=== PATIENT | male | born 1965 | race Caucasian/White ===

== ENCOUNTER → 2020-05-26 14:08 | Outpatient (BNVA) | payer MEDICAID, SELFPAY | PROVIDERS: PCP Pediatrics; Visit Provider Urology | DX: N40.1 Benign prostatic hyperplasia with lower urinary tract symptoms (principal); N13.8 Other obstructive and reflux uropathy; R39.11 Hesitancy of micturition; N52.01 Erectile dysfunction due to arterial insufficiency | CPT/HCPCS: 51798; 81002; 99212 ==

== ENCOUNTER 2020-08-19 09:52 | Outpatient (REF) | payer MEDICAID, SELFPAY ==
--- NOTE | ~2020-08-19 | US_ITS ---
EXAMINATION: US ABDOMEN COMPLETE CLINICAL INFORMATION: Chronic hepatitis C. COMPARISON: Ultrasound abdomen complete 07/04/2018. TECHNIQUE: Real-time imaging of the abdominal viscera. FINDINGS: PANCREAS: Normal. ABDOMINAL AORTA: The proximal, mid, and distal segments are normal in caliber. INFERIOR VENA CAVA: Visualized portions are normal. LIVER: Normal. The liver is normal in size. The liver contour is normal. Parenchymal echogenicity is normal. No focal hepatic lesion. There is no intrahepatic biliary duct dilatation seen. GALLBLADDER: Normal. The gallbladder is physiologically distended without evidence of stones, sludge, polyps, wall thickening or pericholecystic fluid. COMMON BILE DUCT: Normal in caliber measuring 0.3 cm in diameter. RIGHT KIDNEY: Innumerable tiny echogenic foci are redemonstrated, which may represent vascular artifact versus tiny calcifications. No hydronephrosis. No focal parenchymal lesions. The kidney measures 9.7 cm in maximum dimension. LEFT KIDNEY: Innumerable tiny echogenic foci are redemonstrated, which may represent vascular artifact versus tiny calcifications. No hydronephrosis. Simple cyst measuring 2.0 cm, unchanged. Cyst is not clinically significant and no dedicated follow-up imaging is recommended. The kidney measures 11.2 cm in maximum dimension. SPLEEN: Normal. The spleen measures 11.0 cm in maximum dimension. FREE FLUID: None. US/US abdomen complete IMPRESSION: 1. No focal hepatic parenchymal lesion or biliary ductal dilatation. 2. Tiny bilateral renal echogenic foci, which may represent vascular artifact versus tiny calcifications. No hydronephrosis.
== END 2020-08-19 09:53 | disposition home or self-care (01) ==
LOC: HO.HMGCX 09:52
PROVIDERS: PCP Pediatrics; Visit Provider Pediatrics
DX: B18.2 Chronic viral hepatitis C (principal)
CPT/HCPCS: 76700

== ENCOUNTER 2020-11-11 12:58 | Outpatient (RCR) | payer MEDICAID, SELFPAY | END 2020-11-17 07:30 | disposition home or self-care (01) | LOC: HO.WCC 12:58 | PROVIDERS: PCP Pediatrics; Visit Provider Surgery | DX: E11.40 Type 2 diabetes mellitus with diabetic neuropathy, unspecified (principal); B20 Human immunodeficiency virus [HIV] disease; F17.210 Nicotine dependence, cigarettes, uncomplicated; Z79.4 Long term (current) use of insulin; Z86.31 Personal history of diabetic foot ulcer | CPT/HCPCS: 99212 ==

== ENCOUNTER → 2021-02-16 11:09 | Outpatient (BNVA) | payer MEDICAID, SELFPAY | PROVIDERS: PCP Pediatrics; Visit Provider Urology | DX: N40.1 Benign prostatic hyperplasia with lower urinary tract symptoms (principal); N13.8 Other obstructive and reflux uropathy; N41.1 Chronic prostatitis | CPT/HCPCS: 99212 ==

== ENCOUNTER 2021-03-05 00:16 | Inpatient (IN) | payer MEDICAID, SELFPAY ==
[2021-03-05] VITALS (9 sets, daily range): BP systolic 92–124; BP diastolic 49–69; PULSE 89–117; RESP 14–20; TEMP 37.2–39.4; O2SAT 95–98; BMI 23.6
--- NOTE | ~2021-03-05 | XR_ITS ---
EXAMINATION: XR CHEST CLINICAL INFORMATION: Weakness COMPARISON: None TECHNIQUE: Frontal view of the chest was obtained. FINDINGS: Cardiac leads overlie the chest. The lungs are well expanded. Bronchial wall thickening noted. No dense consolidation. No edema or effusion. No pneumothorax. The cardiomediastinal silhouette is within normal limits. XR/XR chest 1V IMPRESSION: No consolidation. Bronchial wall thickening can be seen with a small airways process such as asthma or atypical/viral infection.
--- NOTE | ~2021-03-05 | CT_ITS ---
EXAMINATION: CT HEAD WITHOUT CONTRAST CLINICAL INFORMATION: Fall COMPARISON: None. TECHNIQUE: Contiguous axial imaging was performed from the skull base to vertex without intravenous contrast. This CT examination was performed using dose optimization techniques as appropriate, variously including the following: * Automated exposure control * Adjustment of mA and/or kV according to patient size (this includes techniques or standardized protocols for targeted exams where dose is matched to indication/reason for exam; i.e. extremities or head) Use of iterative reconstruction technique DLP: 774 mGy-cm. FINDINGS: There is no evidence of acute intracranial hemorrhage or territorial infarction. No abnormal mass effect or midline shift is seen. Rivera to white matter differentiation is well preserved. No extra-axial fluid collections are identified. No hydrocephalus. No significant volume loss. There is no abnormal attenuation within the brain parenchyma. The osseous structures and soft tissues are normal. Partially opacified left sphenoid sinus. Partially opacified left mastoid air cells. The right mastoid air cells and visualized portions of the paranasal sinuses are otherwise well aerated. CT/CT head/brain wo con IMPRESSION: No acute intracranial pathology.
--- NOTE | ~2021-03-05 | MR_ITS ---
EXAMINATION: MRI FOOT WITHOUT AND WITH CONTRAST, LEFT CLINICAL INFORMATION: Osteomyelitis. COMPARISON: Left foot radiographs dated 11/07/2012. TECHNIQUE: Multisequence MR imaging of the left foot was obtained before and after the IV administration of 7 mL Gadavist contrast on a high-field strength scanner. FINDINGS: Evaluation limited secondary to patient motion. Soft tissue ulceration along the lateral/plantar aspect of the 5th metatarsal head and with skin thickening and subcutaneous edema, consistent with acute cellulitis. No organized fluid collection/abscess formation. Within the adjacent 5th metatarsal head there is a peripherally increased T2 marrow signal with minimally decreased T1 marrow signal as well as mild postcontrast enhancement. No osseous erosion. Minimal periosteal reaction. Findings are consistent with acute osteomyelitis. No additional abnormal marrow signal. No stress reaction or fracture. Articular cartilage thinning with small marginal osteophytes at the 1st metatarsophalangeal joint and hallux sesamoids. Edema within the intrinsic musculature of the foot, which can be seen in diabetic patients. No measurable tendon defect. Intact Lisfranc ligament. MR/MR foot LT wo/w con IMPRESSION: Soft tissue ulceration and cellulitis along the plantar aspect of the 5th metatarsal head. No abscess formation. Mild underlying acute osteomyelitis within the 5th metatarsal head.
--- NOTE | ~2021-03-05 | CT_ITS ---
EXAMINATION: CT ABDOMEN AND PELVIS WITHOUT CONTRAST CLINICAL INFORMATION: Fevers. Elevated LFTs. COMPARISON: No prior CT. TECHNIQUE: Multidetector volumetric imaging was performed from the superior aspect of the liver through the pubic symphysis. Sagittal and coronal reformatted images were obtained on the technologist's workstation. This CT examination was performed using dose optimization techniques as appropriate, variously including the following: *Automated exposure control *Adjustment of mA and/or kV according to patient size (this includes techniques or standardized protocols for targeted exams where dose is matched to indication/reason for exam; i.e. extremities or head) *Use of iterative reconstruction technique DLP: 480 mGy-cm FINDINGS: LUNG BASES: The visualized lung bases are unremarkable. LIVER, GALLBLADDER, AND BILIARY TREE: The liver is normal in size, shape, and attenuation. No focal hepatic lesion or biliary ductal dilatation is present. The gallbladder is unremarkable with no evidence of radiopaque gallstones, gallbladder wall thickening, or obvious pericholecystic inflammatory changes. PANCREAS: Unremarkable. SPLEEN: Unremarkable. ADRENAL GLANDS: Unremarkable. KIDNEYS AND URETERS: The kidneys are normal in size, shape, and attenuation. No hydronephrosis, hydroureter, or calculi seen. No perinephric stranding. BLADDER: Decompressed with a Sin catheter in place. GASTROINTESTINAL TRACT: The stomach is unremarkable. The small bowel is normal in caliber. There is no obstruction. Normal appendix noted. No colonic wall thickening or acute inflammation. Large colonic stool burden, with stool seen throughout the entirety of the colon. ABDOMINAL WALL: No significant hernia is appreciated. LYMPH NODES: Normal. VASCULAR: Unremarkable. PELVIC VISCERA: Enlarged prostate measures 5.1 cm transverse. OSSEOUS STRUCTURES: No acute or suspicious osseous abnormality. Mild degenerative changes of the spine and hips. CT/CT abdomen pelvis wo con IMPRESSION: No acute inflammatory changes of the abdomen or pelvis. Large colonic stool burden. Fleischner guidelines were followed.
--- NOTE | 2021-03-05 00:26 | ECG_ITS ---
Test Reason : HYPERGLYCEMIA Blood Pressure : / mmHG Vent. Rate : 112 BPM Atrial Rate : 112 BPM P-R Int : 142 ms QRS Dur : 082 ms QT Int : 346 ms P-R-T Axes : 059 034 067 degrees QTc Int : 472 ms Sinus tachycardia Nonspecific T wave abnormality Abnormal ECG When compared with ECG of 28-JAN-2011 09:24, Vent. rate has increased BY [address] no longer elevated in Anterior leads Nonspecific T wave abnormality now evident in Anterolateral leads Referred By: Brittany Diaz Electronically Signed By:NADJA FRANCISCO MD
[2021-03-05 00:30] LABS: Glucose, Whole Blood 424 mg/dL (60-115)
--- NOTE | 2021-03-05 00:33 | ED_ITS ---
HPI - Weakness General Chief complaint: General Medical Stated complaint: hyperglycemia Time Seen by Provider: 03/05/21 00:25 Source: patient and old records reviewed Mode of arrival: EMS Limitations: other (slightly confused) History of Present Illness HPI Narrative: 55 yo male with hx of BPH, UTIs, hepatitis, HIV just completed levofloxacin course for ?prostatitis on 03/02 noted since yesterday feeling ill and weak found to have fever on arrival. States he has leg pain and cannot walk tried to get up and fell no LOC and did not injure himself. Brought to ED with BS in 400s as well. MD Complaint: generalized weakness Onset (ago): day(s) (2) Duration: progressively worsening Location: generalized Migration: none Severity: severe Quality: dull Relieving factors: none Exacerbating factors: movement and exertion Context: recent illness Associated symptoms: confusion and loss of appetite Related Data Home Medications Medication Instructions Recorded Confirmed benztropine 2 mg tablet 2 mg PO BID 02/16/21 docusate sodium 100 mg capsule 100 mg PO BID 02/16/21 elviteg 150 mg-cob 150 mg-emtricit 1 tab PO DAILY 02/16/21 200 mg-tenofo alafenam 10 mg tablet (Genvoya) gabapentin 100 mg capsule 0 mg PO 02/16/21 insulin aspar prot-insulin aspart ml SUBCUT 02/16/21 100 unit/mL (70-30) subcutaneous pen (Novolog Mix 70-30FlexPen U-100) lithium carbonate 300 mg tablet 300 mg PO 02/16/21 rsbwkmoayqpb-derfetat-kcpart 0 tab PO 02/16/21 tablet (Cerovite Senior) pen needle, diabetic 32 gauge x #50 ea 02/16/21 03/05/21/32 (BD Viv 2nd Gen Pen Needle) pravastatin 40 mg tablet 40 mg PO BEDTIME 02/16/21 03/05/21 propranolol 20 mg tablet 20 mg PO DAILY 02/16/21 03/05/21 risperidone 3 mg tablet 3 mg PO BID 02/16/21 03/05/21 Previous Rx's Medication Instructions Recorded tamsulosin 0.4 mg capsule 0.4 mg PO BEDTIME 30 Days #90 cap 01/26/21 finasteride 5 mg tablet 5 mg PO DAILY 90 Days #90 tab 02/16/21 Allergies Allergy/AdvReac Type Severity Reaction Status Date / Time acetaminophen [From Allergy Unknown UNKNOWN Verified 02/16/21 11:10 TYLENOL] aspirin [ASA] Allergy Unknown AGITATION Verified 02/16/21 11:10 trazodone [TRAZODONE] AdvReac Unknown HYPER Verified 02/16/21 11:10 Review of Systems Verdana 4l Review of Systems: Verdana 4d Verdana 4d Constitutional : No Weight loss, No Fever, pos Chills, pos Fatigue, pos Malaise ENT/Mouth : No sore throat, No Rhinorrhea Eyes: No Eye Pain, No Swelling, No Redness Cardiovascular : No Chest Pain, No SOB, No Dyspnea on Exertion, No OrthopneaOrthopnea, No Edema, No Palpitations Respiratory : No Cough, No Sputum, No Wheezing Gastrointestinal : No Nausea, No Vomiting, No Diarrhea, No Constipation, No abdominal Pain, No Hematochezia, No Melena Genitourinary : pos Dysuria, No Urinary Frequency, No Hematuria, Musculoskeletal : No joint pain, No Myalgias, No Joint Swelling Skin : No Skin Lesions, No rash Neuro : pos Weakness, No Numbness, No Dizziness, No Headache Psych : No Anxiety/Panic, No Depression Heme/Lymph: No Bruising, No Bleeding,No Lymphadenopathy Endocrine : No Polyuria, No Polydipsia All other systems reviewed and are negative PMFSH Past Medical History Attestation statement: The following information was validated with the patient. Medical History BPH w urinary obs/LUTS Chronic prostatitis Erectile dysfunction due to arterial insufficiency Hepatitis HIV (human immunodeficiency virus infection) Urinary hesitancy Surgical History No pertinent past surgical history Family History Family History Father No problems noted. Mother No problems noted. Social History Social History (Updated 03/05/21 @ 00:34 by Brittany Diaz DO) Patient Tobacco Use Status: Tobacco use Unknown Use of substances other than those prescribed or required for medical reasons: No Advance Directives: No Advance Directives Information Provided: No Physical Exam Verdana 4l Vital Signs: Verdana 4d Verdana 4d Vital Signs: Verdana 4d Verdana 4Bd Last Vital Signs Verdana 4d Chore Tender New 4d Chore Tender New 4d Temp 100.4 F 03/05/21 04:38 Chore Tender New 4d Pulse 103 H 03/05/21 04:54 Chore Tender New 4d Resp 17 03/05/21 04:54 BP 120/63 03/05/21 04:54 Pulse Ox 97 03/05/21 04:54 BMI result Body Mass Index 23.6 Appearance: Alert. Oriented X2 (time). No acute distress. Eyes: Pupils equal, round and reactive to light. ENT: Pharynx dry MM Neck: Normal inspection. Neck supple. CVS: Normal heart rate and rhythm. Pulses normal. Respiratory: No respiratory distress. Breath sounds normal. Abdomen: Soft and nontender. ?bladder distended Skin: Skin warm and dry. Normal skin color. Normal skin turgor. Extremities: No lower extremity edema. No calf ttp. scaling feet with wounds noted bilaterally on plantar surfaces some drainage noted Neuro: Oriented X 2 (time). No motor deficit. No sensory deficit. Course Course Course Narrative: UA normal but recently on levofloxacin could be masked feet could also be source will add on vancomycin as well BP improved at this time will admit to hospitalist MDM - Weakness MDM Narrative Medical decision making narrative: 55 yo male with hx of BPH, UTIs, hepatitis, HIV just completed levofloxacin course for ?prostatitis on 03/02 noted since yesterday feeling ill and weak found to have fever on arrival. At this time the patient c/o dysuria and not feeling well he had a fall at residential will obtain basic labs, cultures, lactic acid, UA - catheter ordered, IVF 30cc bolus, empiric cefepime ordered no recent cultures in our system, given fall and some confusion though could be related to fever will obtain CT head to r/o trauma. Suspect he will need admission to hospital given presentation Lab Data Result diagrams: 03/05/21 00:47 03/05/21 00:46 Labs: Lab Results 03/05/21 03/05/21 03/05/21 Range/Units 00:25 00:42 00:46 WBC (4.8-10.8) X10*3/uL RBC (4.60-5.80) X10*6/uL Hgb (14.0-18.0) g/dl Hct (42.0-52.0) % MCV (80.0-98.0) fL MCH (27.0-33.0) pg MCHC (31.0-36.0) g/dl RDW (11.0-16.0) % Plt Count (160-400) X10*3/uL MPV (9.4-12.4) fL Immature Gran % (Auto) (0.0-0.4) % Neut % (Auto) (45-73) % Lymph % (Auto) (20-40) % [place] % (Auto) (2-11) % Eos % (Auto) (0-4) % Baso % (Auto) (0-2) % Lymph # (Auto) (1.2-4.9) X10*3/uL [place] # (Auto) (0.1-1.2) X10*3/uL Eos # (Auto) (0.0-0.4) X10*3/uL Baso # (Auto) (0.0-0.2) X10*3/uL Abs Immat Gran (auto) (0.00-0.03) X10*3/uL Absolute Neuts (auto) (2.0-8.3) x10*3/uL Absolute Nucleated RBC (0.0-0.012) X10*3/uL Nucleated RBC % (auto) (0.0-0.2) /100WBC Smear Tech's Comments PT (9.9-13.0) SEC INR (0.9-1.1) Sodium 133 L (135-145) mmol/L Potassium 3.5 (3.3-5.1) mmol/L Chloride 100 (96-108) mmol/L Carbon Dioxide 21 L (22-29) mmol/L Anion Gap 16 (12-20) BUN 22 H (9-16) mg/dL Creatinine 1.81 H (0.5-1.4) mg/dL Estim Creat Clear Calc 44.0 Estimated GFR 39 POC Glucose 424 H* (60-115) mg/dL Random Glucose 482 H* (60-115) mg/dL Lactic Acid 3.1 H* (0.5-2.0) mmol/L Lactic Acid F/U @ 2Hr (0.5-2.0) mmol/L Calcium 9.1 (8.4-10.2) mg/dL Magnesium 1.6 (1.6-2.6) mg/dL Total Bilirubin 0.5 (0.0-1.0) mg/dL Direct Bilirubin 0.3 (0.0-0.5) mg/dL AST 499 H (5-37) U/L ALT 284 H (0-40) U/L Alkaline Phosphatase 143 H (39-117) U/L Troponin I High Sens (<3.5-35.0) ng/L Total Protein 6.0 L (6.5-8.0) g/dL Albumin 3.5 (3.5-5.0) g/dL Urine Color Urine Appearance Urine pH (5.0-8.0) Ur Specific [place] (1.005-1.025) Urine Protein (NEG-TRACE) MG/DL Urine Glucose (UA) (NEG) MG/DL Urine Ketones (NEG) MG/DL Urine Blood (NEG) Urine Nitrite (NEG) Ur Leukocyte Esterase (NEG) Urine RBC (0) /HPF Urine WBC (0-4) /HPF Ur Squamous Epith Cells /LPF Urine Bacteria /LPF Hyaline Casts /LPF Urine Mucus /LPF [place] (0.60-1.20) mmol/L COVID-19 (BETHANY) (Negative) COVID-19 Clin Com 03/05/21 03/05/21 03/05/21 Range/Units 00:46 00:46 00:46 WBC (4.8-10.8) X10*3/uL RBC (4.60-5.80) X10*6/uL Hgb (14.0-18.0) g/dl Hct (42.0-52.0) % MCV (80.0-98.0) fL MCH (27.0-33.0) pg MCHC (31.0-36.0) g/dl RDW (11.0-16.0) % Plt Count (160-400) X10*3/uL MPV (9.4-12.4) fL Immature Gran % (Auto) (0.0-0.4) % Neut % (Auto) (45-73) % Lymph % (Auto) (20-40) % [place] % (Auto) (2-11) % Eos % (Auto) (0-4) % Baso % (Auto) (0-2) % Lymph # (Auto) (1.2-4.9) X10*3/uL [place] # (Auto) (0.1-1.2) X10*3/uL Eos # (Auto) (0.0-0.4) X10*3/uL Baso # (Auto) (0.0-0.2) X10*3/uL Abs Immat Gran (auto) (0.00-0.03) X10*3/uL Absolute Neuts (auto) (2.0-8.3) x10*3/uL Absolute Nucleated RBC (0.0-0.012) X10*3/uL Nucleated RBC % (auto) (0.0-0.2) /100WBC Smear Tech's Comments PT 12.3 (9.9-13.0) SEC INR 1.1 (0.9-1.1) Sodium (135-145) mmol/L Potassium (3.3-5.1) mmol/L Chloride (96-108) mmol/L Carbon Dioxide (22-29) mmol/L Anion Gap (12-20) BUN (9-16) mg/dL Creatinine (0.5-1.4) mg/dL Estim Creat Clear Calc Estimated GFR POC Glucose (60-115) mg/dL Random Glucose (60-115) mg/dL Lactic Acid (0.5-2.0) mmol/L Lactic Acid F/U @ 2Hr (0.5-2.0) mmol/L Calcium (8.4-10.2) mg/dL Magnesium (1.6-2.6) mg/dL Total Bilirubin (0.0-1.0) mg/dL Direct Bilirubin (0.0-0.5) mg/dL AST (5-37) U/L ALT (0-40) U/L Alkaline Phosphatase (39-117) U/L Troponin I High Sens 15.8 (<3.5-35.0) ng/L Total Protein (6.5-8.0) g/dL Albumin (3.5-5.0) g/dL Urine Color Urine Appearance Urine pH (5.0-8.0) Ur Specific [place] (1.005-1.025) Urine Protein (NEG-TRACE) MG/DL Urine Glucose (UA) (NEG) MG/DL Urine Ketones (NEG) MG/DL Urine Blood (NEG) Urine Nitrite (NEG) Ur Leukocyte Esterase (NEG) Urine RBC (0) /HPF Urine WBC (0-4) /HPF Ur Squamous Epith Cells /LPF Urine Bacteria /LPF Hyaline Casts /LPF Urine Mucus /LPF [place] (0.60-1.20) mmol/L COVID-19 (BETHANY) Negative (Negative) COVID-19 Clin Com See Note 03/05/21 03/05/21 03/05/21 Range/Units 00:46 00:47 01:03 WBC 9.2 (4.8-10.8) X10*3/uL RBC 3.59 L (4.60-5.80) X10*6/uL Hgb 11.1 L (14.0-18.0) g/dl Hct 31.6 L (42.0-52.0) % MCV 88.0 (80.0-98.0) fL MCH 30.9 (27.0-33.0) pg MCHC 35.1 (31.0-36.0) g/dl RDW 11.6 (11.0-16.0) % Plt Count 100 L (160-400) X10*3/uL MPV 11.6 (9.4-12.4) fL Immature Gran % (Auto) 0.9 H (0.0-0.4) % Neut % (Auto) 95.4 H (45-73) % Lymph % (Auto) 2.2 L (20-40) % [place] % (Auto) 1.1 L (2-11) % Eos % (Auto) 0.1 (0-4) % Baso % (Auto) 0.3 (0-2) % Lymph # (Auto) 0.2 L (1.2-4.9) X10*3/uL [place] # (Auto) 0.1 (0.1-1.2) X10*3/uL Eos # (Auto) 0.0 (0.0-0.4) X10*3/uL Baso # (Auto) 0.0 (0.0-0.2) X10*3/uL Abs Immat Gran (auto) 0.08 H (0.00-0.03) X10*3/uL Absolute Neuts (auto) 8.8 H (2.0-8.3) x10*3/uL Absolute Nucleated RBC 0.000 (0.0-0.012) X10*3/uL Nucleated RBC % (auto) 0.0 (0.0-0.2) /100WBC Smear Tech's Comments VERIFIED PT (9.9-13.0) SEC INR (0.9-1.1) Sodium (135-145) mmol/L Potassium (3.3-5.1) mmol/L Chloride (96-108) mmol/L Carbon Dioxide (22-29) mmol/L Anion Gap (12-20) BUN (9-16) mg/dL Creatinine (0.5-1.4) mg/dL Estim Creat Clear Calc Estimated GFR POC Glucose (60-115) mg/dL Random Glucose (60-115) mg/dL Lactic Acid (0.5-2.0) mmol/L Lactic Acid F/U @ 2Hr (0.5-2.0) mmol/L Calcium (8.4-10.2) mg/dL Magnesium (1.6-2.6) mg/dL Total Bilirubin (0.0-1.0) mg/dL Direct Bilirubin (0.0-0.5) mg/dL AST (5-37) U/L ALT (0-40) U/L Alkaline Phosphatase (39-117) U/L Troponin I High Sens (<3.5-35.0) ng/L Total Protein (6.5-8.0) g/dL Albumin (3.5-5.0) g/dL Urine Color YELLOW Urine Appearance CLEAR Urine pH 5.5 (5.0-8.0) Ur Specific [place] 1.015 (1.005-1.025) Urine Protein 1+ H (NEG-TRACE) MG/DL Urine Glucose (UA) >=1000 H (NEG) MG/DL Urine Ketones NEG (NEG) MG/DL Urine Blood NEG (NEG) Urine Nitrite NEG (NEG) Ur Leukocyte Esterase NEG (NEG) Urine RBC 0 (0) /HPF Urine WBC 0-2 (0-4) /HPF Ur Squamous Epith Cells 1+ /LPF Urine Bacteria NONE /LPF Hyaline Casts 0-2 /LPF Urine Mucus 1+ /LPF [place] 0.27 L (0.60-1.20) mmol/L COVID-19 ([facility]ANY) (Negative) COVID-19 Clin Com 03/05/21 03/05/21 03/05/21 Range/Units 02:55 02:59 04:13 WBC (4.8-10.8) X10*3/uL RBC (4.60-5.80) X10*6/uL Hgb (14.0-18.0) g/dl Hct (42.0-52.0) % MCV (80.0-98.0) fL MCH (27.0-33.0) pg MCHC (31.0-36.0) g/dl RDW (11.0-16.0) % Plt Count (160-400) X10*3/uL MPV (9.4-12.4) fL Immature Gran % (Auto) (0.0-0.4) % Neut % (Auto) (45-73) % Lymph % (Auto) (20-40) % [place] % (Auto) (2-11) % Eos % (Auto) (0-4) % Baso % (Auto) (0-2) % Lymph # (Auto) (1.2-4.9) X10*3/uL [place] # (Auto) (0.1-1.2) X10*3/uL Eos # (Auto) (0.0-0.4) X10*3/uL Baso # (Auto) (0.0-0.2) X10*3/uL Abs Immat Gran (auto) (0.00-0.03) X10*3/uL Absolute Neuts (auto) (2.0-8.3) x10*3/uL Absolute Nucleated RBC (0.0-0.012) X10*3/uL Nucleated RBC % (auto) (0.0-0.2) /100WBC Smear Tech's Comments PT (9.9-13.0) SEC INR (0.9-1.1) Sodium (135-145) mmol/L Potassium (3.3-5.1) mmol/L Chloride (96-108) mmol/L Carbon Dioxide (22-29) mmol/L Anion Gap (12-20) BUN (9-16) mg/dL Creatinine (0.5-1.4) mg/dL Estim Creat Clear Calc Estimated GFR POC Glucose 422 H* 400 H* (60-115) mg/dL Random Glucose (60-115) mg/dL Lactic Acid (0.5-2.0) mmol/L Lactic Acid F/U @ 2Hr 1.6 (0.5-2.0) mmol/L Calcium (8.4-10.2) mg/dL Magnesium (1.6-2.6) mg/dL Total Bilirubin (0.0-1.0) mg/dL Direct Bilirubin (0.0-0.5) mg/dL AST (5-37) U/L ALT (0-40) U/L Alkaline Phosphatase (39-117) U/L Troponin I High Sens (<3.5-35.0) ng/L Total Protein (6.5-8.0) g/dL Albumin (3.5-5.0) g/dL Urine Color Urine Appearance Urine pH (5.0-8.0) Ur Specific [place] (1.005-1.025) Urine Protein (NEG-TRACE) MG/DL Urine Glucose (UA) (NEG) MG/DL Urine Ketones (NEG) MG/DL Urine Blood (NEG) Urine Nitrite (NEG) Ur Leukocyte Esterase (NEG) Urine RBC (0) /HPF Urine WBC (0-4) /HPF Ur Squamous Epith Cells /LPF Urine Bacteria /LPF Hyaline Casts /LPF Urine Mucus /LPF [place] (0.60-1.20) mmol/L COVID-19 (BETHANY) (Negative) COVID-19 Clin Com ECG Data Attestation: I personally reviewed and interpreted this ECG as follows: ECG interpretation date: 03/05/21 ECG interpretation time: :23 Interpretation: Rate: 112 Rhythm: sinus tachycardia [place]: normal Normal P waves. Normal ROX. Normal QRS complex. ST T wave : no INDRA, nonspecific qTC: normal prior studies: no acute ischemia The study has been interpreted contemporaneously by me. . Discharge Plan Discharge Clinical Impression: Acidosis, lactic, Weakness, Open wnd foot-complicated, LYNETTE (acute kidney injury) Fever Qualifiers: Fever type: unspecified Qualified Code(s): R50.9 - Fever, unspecified Patient Disposition: Admitted As Inpatient
[2021-03-05 00:52] LABS: Basophils Percent Auto 0.3 % (0-2); Eosinophils Percent Auto 0.1 % (0-4); Hematocrit 31.6 % (42.0-52.0); Hemoglobin 11.1 g/dl (14.0-18.0); Imm Gran Abs Auto 0.08 X10*3/uL (0.00-0.03); Imm Gran Pct Auto 0.9 % (0.0-0.4); Lymphocytes Absolute Auto 0.2 X10*3/uL (1.2-4.9); Lymphocytes Percent Auto 2.2 % (20-40); MANUAL DIFF FLAG SCAN; Mean Corpuscular HGB Conc 35.1 g/dl (31.0-36.0); Mean Corpuscular Hemoglobin 30.9 pg (27.0-33.0); Mean Platelet Volume 11.6 fL (9.4-12.4); Monocytes Absolute Auto 0.1 X10*3/uL (0.1-1.2); Monocytes Percent Auto 1.1 % (2-11); Neutrophils Absolute Auto 8.8 x10*3/uL (2.0-8.3); Neutrophils Percent Auto 95.4 % (45-73); Platelet Count 100 X10*3/uL (160-400); Red Blood Count 3.59 X10*6/uL (4.60-5.80); Red Cell Distribution Width 11.6 % (11.0-16.0); SCAN SMEAR FLAG 1; White Blood Count 9.2 X10*3/uL (4.8-10.8)
[2021-03-05] MEDS: cefEPime HCl 2 GM in 0.9 % Sodium Chloride 50 ML IV (00:54)
[2021-03-05] MEDS: Acetaminophen 325 MG TABLET 650 MG PO (00:55)
[2021-03-05 00:57] LABS: INTERNATIONAL NORM RATIO 1.1 (0.9-1.1); Prothrombin Time 12.3 SEC (9.9-13.0)
[2021-03-05 01:09] LABS: SLIDE REVIEW VERIFIED
[2021-03-05 01:14] LABS: Lactic Acid 3.1 mmol/L (0.5-2.0)
[2021-03-05 01:14] LABS: Troponin-I High Sensitivity 15.8 ng/L (<3.5-35.0)
[2021-03-05 01:21] LABS: Appearance Urine CLEAR; Color Urine YELLOW; Glucose Urine UA >=1000 MG/DL (NEG); Leukocyte Esterase Urine NEG (NEG); Nitrite Urine NEG (NEG); PH 5.5 (5.0-8.0); Specific Gravity - Urine 1.015 (1.005-1.025); UACC Culture Trigger NO; Urine Blood NEG (NEG); Urine Ketones NEG (NEG); Urine Protein 1+ MG/DL (NEG-TRACE)
[2021-03-05 01:28] LABS: Hyaline Casts Urine 0-2 /LPF; Mucus Urine 1+ /LPF; RBC Urine 0 /HPF (0); Squamous Epithelial Cell Urine 1+ /LPF; WBC Urine 0-2 /HPF (0-4)
[2021-03-05 01:33] LABS: COVID-19 Test Negative (Negative); IDNOW Serial# 9DD0AD1C
[2021-03-05 02:04] LABS: Alanine Aminotransferase 284 U/L (0-40); Albumin Level 3.5 g/dL (3.5-5.0); Alkaline Phosphatase 143 U/L (39-117); Anion Gap 16 (12-20); Aspartate Amino Transferase 499 U/L (5-37); Bilirubin Direct 0.3 mg/dL (0.0-0.5); Bilirubin Total 0.5 mg/dL (0.0-1.0); Blood Urea Nitrogen 22 mg/dL (9-16); Calcium 9.1 mg/dL (8.4-10.2); Carbon Dioxide 21 mmol/L (22-29); Chloride 100 mmol/L (96-108); Estimated Glomerular Filt Rate 39; Glucose Random 482 mg/dL (60-115); Magnesium 1.6 mg/dL (1.6-2.6); Potassium 3.5 mmol/L (3.3-5.1); Sodium 133 mmol/L (135-145)
[2021-03-05] MEDS: vancomycin HCL 750 MG in 0.9 % Sodium Chloride 250 ML 265 MG IV ×2 (02:26→08:36)
--- NOTE | 2021-03-05 02:39 | PC.NURSE ---
Addendum entered by Monserrat Bhatt RN 03/05/21 02:43: Wounds assessed by Dr. Diaz. Original Note: Patient alert and oriented x 2. self and place. did not know date or year. Patient has wounds on bilateral bottom of feet pictures taken and place in chart. Patient has 103.0 fever gave tylenol temp. 101.4 orally. Patient c/o pain in feet is his only pain. [facility] around. Will continue to monitor.
[2021-03-05 02:51] LABS: Reflex Lactate? Lactic Acid Added
[2021-03-05 02:59] LABS: Glucose, Whole Blood 422 mg/dL (60-115)
[2021-03-05 03:19] LABS: ~Lactic Acid-LAB USE ONLY 1.6 mmol/L (0.5-2.0)
[2021-03-05 03:24] LABS: Lithium 0.27 mmol/L (0.60-1.20)
[2021-03-05] MEDS: Insulin Regular, Human 100 UNIT/ML 3 ML VIAL IVPUSH (03:31)
[2021-03-05 04:17] LABS: Glucose, Whole Blood 400 mg/dL (60-115)
[2021-03-05] MEDS: 0.9 % Sodium Chloride 1,000 ML 999 ML IV (04:34)
--- NOTE | 2021-03-05 05:09 | PC.NURSE ---
Complete tonya-care and bed change. Pt reposition for comfort.
[2021-03-05] MEDS: Lactated Ringers 1,000 ML 100 ML IVCONT ×2 (05:29→18:02)
[2021-03-05] MEDS: Piperacillin Sodium/Tazobactam 3.375 GM in 0.9 % Sodium Chloride 50 ML IV ×4 (05:29→23:31)
[2021-03-05] MEDS: Enoxaparin Sodium 40 MG/0.4 ML SYRINGE SUBCUT (05:29)
--- NOTE | 2021-03-05 06:45 | P.HPHOSP_ITS ---
History of Present Illness Date of Service: 03/05/21 Chief Complaint: generalized weaknees This is a 55-year-old male with past medical history of diabetes, BPH, UTI, hepatitis, HIV who was just treated for prostatitis and completed course of levofloxacin on 03/02 comes from custodial with complaint of not feeling well. Patient is Korean-speaking, when I saw him he was sleeping, tried to wake him up, he woke up moaning and groaning but did not want to answer any other questions. Per nurse at bedside she reports that he is a very poor historian and will not give much history. Therefore history is obtained mostly from ED physician/chart. Apparently patient comes from custodial, and was complaining of feeling ill and weak for 1 day. He also was complaining that he cannot walk and had a fall with no loss of consciousness and no trauma. On arrival to the ED patient found to have a temp of 103?, heart rate of 114, respiratory rate of 18, satting 95% on room air, blood pressure of 92/51. Patient received sepsis fluid with improvement in his vitals Labs are significant for RBC count 9.2, hemoglobin of 11.1, sodium of 133, BUN of 22, creatinine of 1.81 with a baseline of 1.14 glucose of 400, lactic acid of 3.1, AST of 499, ALT of 284, alk-phos of 143, UA negative, COVID-19 negative, Abdominal pelvic CT with no contrast shows large colonic stool burden with no acute inflammatory changes. Review of Systems Verdana 4l Review of Systems: Yes all other systems are reviewed and Verdana 4d are negative [facility] Medical History BPH w urinary obs/LUTS Chronic prostatitis Erectile dysfunction due to arterial insufficiency Hepatitis HIV (human immunodeficiency virus infection) Urinary hesitancy Family History Father No problems noted. Mother No problems noted. Surgical History No pertinent past surgical history Social History Patient Tobacco Use Status: Tobacco use Unknown Use of substances other than those prescribed or required for medical reasons: No Advance Directives: No Advance Directives Information Provided: No Meds Allergies Allergy/AdvReac Type Severity Reaction Status Date / Time acetaminophen [From Allergy Unknown UNKNOWN Verified 02/16/21 11:10 TYLENOL] aspirin [ASA] Allergy Unknown AGITATION Verified 02/16/21 11:10 trazodone [TRAZODONE] AdvReac Unknown HYPER Verified 02/16/21 11:10 Active Medications: Current Medications Acetaminophen (Acetaminophen 325 Mg Tablet) 650 mg PO Q6H PRN PRN Reason: Pain, Mild (Pain Scale 1-3) Docusate Sodium (Docusate Sodium 100 Mg Capsule) 100 mg PO DAILY PRN PRN Reason: Constipation Enoxaparin Sodium (Enoxaparin Sodium 40 Mg/0.4 Ml Syringe) 40 mg SUBCUT Q24H [facility] Last Admin: 03/05/21 05:29 Dose: 40 mg Documented by: Piperacillin Sod/Tazobactam (Sod 3.375 gm/ Sodium Chloride) 50 mls @ 100 mls/hr IV Q6H [facility] Last Admin: 03/05/21 05:29 Dose: 100 mls/hr Documented by: Lactated Ringer's (Lr) 1,000 mls @ 100 mls/hr IVCONT .Q10H [facility] Last Admin: 03/05/21 05:29 Dose: 100 mls/hr Documented by: Ondansetron HCl (Ondansetron Hcl 4 Mg/2 Ml Vial) 4 mg IVPUSH Q8H PRN PRN Reason: Nausea and Vomiting Pharmacy Consult (Consult Rx Vancomycin Dosing) 1 each MISCELLANE DAILY PRN PRN Reason: Consult order Sodium Chloride (0.9 % Sodium Chloride Flush 3 Ml Syringe) 3 ml IVFLUSH QSHIFT [facility] Home Medications Medication Instructions Recorded Confirmed Last Taken Type benztropine 2 mg 2 mg PO BID 02/16/21 Unknown History tablet docusate sodium 100 mg PO BID 02/16/21 Unknown History 100 mg capsule elviteg 150 1 tab PO DAILY 02/16/21 Unknown History mg-cob 150 mg-emtricit 200 mg-tenofo alafenam 10 mg tablet (Genvoya) gabapentin 100 mg 0 mg PO 02/16/21 Unknown History capsule insulin aspar ml SUBCUT 02/16/21 Unknown History prot-insulin aspart 100 unit/mL (70-30) subcutaneous pen (Novolog Mix 70-30FlexPen U-100) lithium carbonate 300 mg PO 02/16/21 Unknown History 300 mg tablet multivitamin-mine 0 tab PO 02/16/21 Unknown History rals-lutein tablet (Cerovite Senior) pen needle, #50 ea 02/16/21 03/05/21 Unknown History diabetic 32 gauge x 5/32 (BD Viv 2nd Gen Pen Needle) pravastatin 40 mg 40 mg PO BEDTIME 02/16/21 03/05/21 Unknown History tablet propranolol 20 mg 20 mg PO DAILY 02/16/21 03/05/21 Unknown History tablet risperidone 3 mg 3 mg PO BID 02/16/21 03/05/21 Unknown History tablet insulin aspar 56 unit SUBCUT 03/05/21 03/05/21 Unknown History prot-insulin QAM aspart 100 unit/mL (70-30) subcutaneous pen (Novolog Mix 70-30FlexPen U-100) omeprazole 20 mg 1 cap PO DAILY 03/05/21 03/05/21 Unknown History capsule,delayed release Physical Exam Verdana 4l Vital Signs and Narrative: Verdana 4d Verdana 4d Vital Signs: Verdana 4d Verdana 4Bd Last Vital Signs Verdana 4d Crna New 4d Crna New 4d Temp 100.4 F 03/05/21 04:38 Crna New 4d Pulse 103 H 03/05/21 04:54 Crna New 4d Resp 17 03/05/21 04:54 BP 120/63 03/05/21 04:54 Pulse Ox 97 03/05/21 04:54 BMI result Body Mass Index 23.6 Const: Other: Sleepy but arousable, does not answer questions, does not participate in giving me any history General: cooperative and no acute distress Eyes: General: appearance normal, both eyes and all related structures Pupils: Equal, round and reactive pupils present Resp: Effort & Inspection: normal respiratory effort Auscultation: clear to auscultation bilaterally Cardio: Rate: regular rate Rhythm: regular rhythm GI: Palpation (GI): Soft to palpation Auscultation: normal bowel sounds Skin: General skin exam: no rashes or lesions noted Neuro: Cranial nerves: Yes Equal, round and reactive pupils present Extrem: Other: bilateral lower extremity ulcers, non-drainage, tender Results Labs CBC and Chem 7: 03/05/21 00:47 03/05/21 00:46 Labs: Laboratory Results - last 24 hr 03/05/21 03/05/21 03/05/21 00:25 00:42 00:46 MCV MCH MCHC RDW Plt Count MPV Immature Gran % (Auto) Neut % (Auto) Lymph % (Auto) [place] % (Auto) Eos % (Auto) Baso % (Auto) Lymph # (Auto) [place] # (Auto) Eos # (Auto) Baso # (Auto) Abs Immat Gran (auto) Absolute Neuts (auto) Absolute Nucleated RBC Nucleated RBC % (auto) Smear Tech's Comments PT INR Anion Gap 16 Estim Creat Clear Calc 44.0 Estimated GFR 39 POC Glucose 424 H* Random Glucose 482 H* Lactic Acid 3.1 H* Lactic Acid F/U @ 2Hr Calcium 9.1 Magnesium 1.6 Total Bilirubin 0.5 Direct Bilirubin 0.3 AST 499 H ALT 284 H Alkaline Phosphatase 143 H Troponin I High Sens Total Protein 6.0 L Albumin 3.5 Urine Color Urine Appearance Urine pH Ur Specific [place] Urine Protein Urine Glucose (UA) Urine Ketones Urine Blood Urine Nitrite Ur Leukocyte Esterase Urine RBC Urine WBC Ur Squamous Epith Cells Urine Bacteria Hyaline Casts Urine Mucus [place] COVID-19 (BETHANY) [email or web address] 03/05/21 03/05/21 03/05/21 00:46 00:46 00:46 MCV MCH MCHC RDW Plt Count MPV Immature Gran % (Auto) Neut % (Auto) Lymph % (Auto) [place] % (Auto) Eos % (Auto) Baso % (Auto) Lymph # (Auto) [place] # (Auto) Eos # (Auto) Baso # (Auto) Abs Immat Gran (auto) Absolute Neuts (auto) Absolute Nucleated RBC Nucleated RBC % (auto) Smear Tech's Comments PT 12.3 INR 1.1 Anion Gap Estim Creat Clear Calc Estimated GFR POC Glucose Random Glucose Lactic Acid Lactic Acid F/U @ 2Hr Calcium Magnesium Total Bilirubin Direct Bilirubin AST ALT Alkaline Phosphatase Troponin I High Sens 15.8 Total Protein Albumin Urine Color Urine Appearance Urine pH Ur Specific [place] Urine Protein Urine Glucose (UA) Urine Ketones Urine Blood Urine Nitrite Ur Leukocyte Esterase Urine RBC Urine WBC Ur Squamous Epith Cells Urine Bacteria Hyaline Casts Urine Mucus [place] COVID-19 (BETHANY) Negative COVID-PlaceSpeak Com See Note 03/05/21 03/05/21 03/05/21 00:46 00:47 01:03 MCV 88.0 MCH 30.9 MCHC 35.1 RDW 11.6 Plt Count 100 L MPV 11.6 Immature Gran % (Auto) 0.9 H Neut % (Auto) 95.4 H Lymph % (Auto) 2.2 L [place] % (Auto) 1.1 L Eos % (Auto) 0.1 Baso % (Auto) 0.3 Lymph # (Auto) 0.2 L [place] # (Auto) 0.1 Eos # (Auto) 0.0 Baso # (Auto) 0.0 Abs Immat Gran (auto) 0.08 H Absolute Neuts (auto) 8.8 H Absolute Nucleated RBC 0.000 Nucleated RBC % (auto) 0.0 Smear Tech's Comments VERIFIED PT INR Anion Gap Estim Creat Clear Calc Estimated GFR POC Glucose Random Glucose Lactic Acid Lactic Acid F/U @ 2Hr Calcium Magnesium Total Bilirubin Direct Bilirubin AST ALT Alkaline Phosphatase Troponin I High Sens Total Protein Albumin Urine Color YELLOW Urine Appearance CLEAR Urine pH 5.5 Ur Specific [place] 1.015 Urine Protein 1+ H Urine Glucose (UA) >=1000 H Urine Ketones NEG Urine Blood NEG Urine Nitrite NEG Ur Leukocyte Esterase NEG Urine RBC 0 Urine WBC 0-2 Ur Squamous Epith Cells 1+ Urine Bacteria NONE Hyaline Casts 0-2 Urine Mucus 1+ [place] 0.27 L COVID-19 ([facility]) COVID-19 Clin Com 03/05/21 03/05/21 03/05/21 02:55 02:59 04:13 MCV MCH MCHC RDW Plt Count MPV Immature Gran % (Auto) Neut % (Auto) Lymph % (Auto) [place] % (Auto) Eos % (Auto) Baso % (Auto) Lymph # (Auto) [place] # (Auto) Eos # (Auto) Baso # (Auto) Abs Immat Gran (auto) Absolute Neuts (auto) Absolute Nucleated RBC Nucleated RBC % (auto) Smear Tech's Comments PT INR Anion Gap Estim Creat Clear Calc Estimated GFR POC Glucose 422 H* 400 H* Random Glucose Lactic Acid Lactic Acid F/U @ 2Hr 1.6 Calcium Magnesium Total Bilirubin Direct Bilirubin AST ALT Alkaline Phosphatase Troponin I High Sens Total Protein Albumin Urine Color Urine Appearance Urine pH Ur Specific [place] Urine Protein Urine Glucose (UA) Urine Ketones Urine Blood Urine Nitrite Ur Leukocyte Esterase Urine RBC Urine WBC Ur Squamous Epith Cells Urine Bacteria Hyaline Casts Urine Mucus [place] COVID-19 ([facility]ANY) COVID-19 Clin Com Imaging Radiologist's Impressions: Impressions Chest X-Ray 03/05/21 01:32 IMPRESSION: No consolidation. Bronchial wall thickening can be seen with a small airways process such as asthma or atypical/viral infection. Head CT 03/05/21 01:40 IMPRESSION: No acute intracranial pathology. Abdomen/Pelvis CT 03/05/21 03:34 IMPRESSION: No acute inflammatory changes of the abdomen or pelvis. Large colonic stool burden. Fleischner guidelines were followed. Assessment and Plan (1) Sepsis: Status: Acute (2) Open wnd foot-complicated: Status: Acute (3) LYNETTE (acute kidney injury): Status: Acute Plan 55 M with past medical history of BPH with urinary obstruction/LUTS, chronic prostatitis for which he just finished a course of levofloxacin on 03/02, recurrent UTIs, hepatitis, HIV, who presents to the hospital feeling ill found to have sepsis # sepsis - likely secondary to non-healing left foot wounds vs recent dx of Prostatits? - less likely as he completed course of levofloaxic and UA -ve - no other obvious surce - abd CT negative, cxr -ve - has fever, leukocytosis, tachycardia and tachypnea - started on IV abx - follow cultures #Bilateral foot ulcers in the setting of DM - Will obtain ESR/CRP - IV abx - follow cultures - consult ID - hold off MRI until evaluated by ID #[email or web address] - Most likely pre-renal in the settin gof sepsis and dehydration - IV fluiids - follow BMP # Lactic acidosis - Likely 2/2 sepsis - IV fluids # DM - hyperglycemic - LDSS and diabetic diet DVT ppx: lovenox Quality Stroke Does the patient have a stroke diagnosis?: No VTE Prior VTE?: No VTE Risk Level:: Medical - moderate - high VTE Device Contraindication: Treatment Not Indicated VTE Drug Contraindication: N/A - Med Ordered
[2021-03-05 06:58] LABS: MANUAL DIFF FLAG NO
[2021-03-05 06:59] LABS: Basophils Percent Auto 0.2 % (0-2); Hematocrit 33.2 % (42.0-52.0); Hemoglobin 11.6 g/dl (14.0-18.0); Imm Gran Abs Auto 0.31 X10*3/uL (0.00-0.03); Imm Gran Pct Auto 1.6 % (0.0-0.4); Lymphocytes Absolute Auto 0.5 X10*3/uL (1.2-4.9); Lymphocytes Percent Auto 2.8 % (20-40); Mean Corpuscular HGB Conc 34.9 g/dl (31.0-36.0); Mean Corpuscular Hemoglobin 30.5 pg (27.0-33.0); Mean Corpuscular Volume 87.4 fL (80.0-98.0); Mean Platelet Volume 11.7 fL (9.4-12.4); Monocytes Absolute Auto 1.3 X10*3/uL (0.1-1.2); Monocytes Percent Auto 6.7 % (2-11); Neutrophils Absolute Auto 17.1 x10*3/uL (2.0-8.3); Neutrophils Percent Auto 88.7 % (45-73); Red Cell Distribution Width 11.9 % (11.0-16.0); White Blood Count 19.3 X10*3/uL (4.8-10.8)
--- NOTE | 2021-03-05 06:59 | PC.NURSE ---
urine 600cc
[2021-03-05 07:00] LABS: Platelet Count 91 X10*3/uL (160-400)
--- NOTE | 2021-03-05 07:31 | PHA.MEDREC ---
Pharmacy Consult ? Medication Reconciliation Pharmacy has reviewed the medication reconciliation completed by [facility]. Patient came from a assisted with a medication list. Risperdal was entered incorrectly, patient take 6 mg at bedtime no 3 mg BID. Patient's list from group states patient takes gabapentin 300 mg TID however prescription states 200 mg TID. Agustina Hayes, PharmD
[2021-03-05 07:42] LABS: Erythrocyte Sedimentation Rate 31 MM/HR (0-15)
[2021-03-05 07:43] LABS: Glucose, Whole Blood 364 mg/dL (60-115)
[2021-03-05 07:44] LABS: Anion Gap 11 (12-20); Blood Urea Nitrogen 20 mg/dL (9-16); C Reactive Protein 5.78 mg/dL (< or = 0.50); Calcium 8.3 mg/dL (8.4-10.2); Carbon Dioxide 19 mmol/L (22-29); Chloride 108 mmol/L (96-108); Creatinine Clr Calc Pharmacy 49.5; Estimated Glomerular Filt Rate 45; Potassium 3.4 mmol/L (3.3-5.1); Sodium 135 mmol/L (135-145)
[2021-03-05 07:45] LABS: Glucose Random 413 mg/dL (60-115)
--- NOTE | 2021-03-05 07:55 | PHA.PROG ---
Admission Date/Time: March 05, 2021 04:40 Indication: Sepsis Weight in k.307 kg Adjusted body weight in K.1 kg [place] body weight in K.4 kg Obesity Dosing Indication % IBW: 102 % - No Serum Creatinine - Last 168 Hours 03/05/21 03/05/21 00:46 06:54 Creatinine 1.81 H 1.61 H Estimated CrCl and GFR - Last 168 Hours 03/05/21 03/05/21 00:46 06:54 Estim Creat Clear Calc 44.0 49.5 Estimated GFR 39 45 Vancomycin Loading Dose: 750 mg on 03/05 @ 0226 + 750 mg 03/05 @ 0800 Current Vancomycin Dosing Regimen: 1250 mg Q24H Date and Time for next Vancomycin Level to be drawn: 03/08 @ 0600 Pharmacist Comments on Vancomycin Plan: Loading dose was not given. ED gave 750 mg at 0226. Will give a second 750 mg dose at 0800 to create a load dose. Will start maintenance dose 1250 mg Q24H on 03/06 @ 0800. Expected AUC 541 with a trough of 16.3 Trough to be drawn 03/08 @ 0600 Pharmacy will monitor renal function daily Agustina Hayes, Cleo Vancomycin dosing will take advantage of [employer] as a clinical decision support tool that uses Bayesian modeling to calculate individual patient's pharmacokinetic parameters and forecast the patient's drug concentration time course with the target goal AUC 24 range of 400 - 600 mg/L/hr.
[2021-03-05] MEDS: Gabapentin 100 MG CAPSULE 200 MG PO ×3 (08:36→21:09)
[2021-03-05] MEDS: Propranolol HCL 20 MG TABLET PO (08:36)
[2021-03-05] MEDS: Lithium Carbonate 300 MG CAPSULE 900 MG PO (08:36)
[2021-03-05] MEDS: Finasteride 5 MG TABLET PO (08:36)
[2021-03-05] MEDS: Omeprazole 20 MG CAPSULE.DR PO (08:36)
[2021-03-05] MEDS: Docusate Sodium 100 MG CAPSULE PO ×2 (08:36→21:09)
[2021-03-05] MEDS: Milk of Magnesia 30 ML ORAL.SUSP PO (08:37)
[2021-03-05] MEDS: polyethylene glycoL 3350 17 GM POWD.PACK PO (08:37)
[2021-03-05] MEDS: Insulin Lispro 100 UNIT/ML 3 ML VIAL SUBCUT ×3 (08:37→17:58)
--- NOTE | 2021-03-05 09:43 | PM.EVENT ---
Event Note Date of Service: 03/05/21 Event Note: 55-year-old Kyrgyz-speaking gentleman resident of [facility],with past medical history of diabetes mellitus on insulin, hepatitis-C, UTI, history of HIV, recently finished a course of Levaquin on March 02 due to prostatitis presented to [facility] due to feeling ill with fever had a fall yesterday due to leg weakness workup in the emergency room showed elevated LFTs, elevated creatinine, lactic acidosis 3.1 elevated CRP 5.78,, hyperglycemia blood sugars 300-400 range, CT head negative, CT abdomen showed large stool burden, UA unremarkable, COVID-19 negative, on admission noted to have normal WBC count, this a.m. WBC bumped to 19,000, have chronic thrombocytopenia, lactic acid 3.1 patient admitted with a diagnosis of sepsis related to nonhealing bilateral foot wounds versus recent diagnosis of prostatitis. on arrival noted to have temp of 103 degrees, pulse 117, respiratory rate 20 history obtained via parts interpreter At present patient wants to to go to bathroom, denies abdominal pain, denies shortness of breath cough, complaining of difficulty urinating with Sin catheter, complaining of bilateral foot discomfort, denies fever chills General patient resting comfortably in no acute distress. Neck is supple no JVD. CVS regular rate rhythm, Respiratory lungs clear to auscultation, no respiratory distress, Gastrointestinal abdomen soft, nontender, bowel sounds audible, no guarding , no rigidity. Extremities no edema. Neuro nonfocal speech clear. Skin bilateral feet plantar surface,thick dry skin , open wound left foot metatarsal, no drainage, right foot lateral surface significant callus with bruising Sin clear urine assessment and plan 55 M with past medical history of BPH with urinary obstruction/LUTS, chronic prostatitis for which he just finished a course of levofloxacin on 03/02, recurrent UTIs, hepatitis, HIV, who presents to the hospital feeling ill found to have sepsis # sepsis likely secondary to non-healing left foot wounds vs recent dx of Prostatits? - less likely as he completed course of levofloaxic and UA -ve versus hepatitis elevated LFTs , CT abdomen showed normal liver no biliary dilatation chest x-ray negative meet sepsis criteria with fever, leukocytosis, lactic acidosis, tachycardia and tachypnea continue IV vanco/zosyn day 1 follow cultures will discuss further workup with ID, question MRI of foot to rule out osteo #Bilateral foot ulcers in the setting of DM elevated CRP continue IV antibioticare, discussed treatment plan with ID, obtain wound nurse consultation # elevated LFTs with no abdominal pain no nausea no vomiting history of hepatitis-C treated in the past CT abdomen negative obtain hepatitis serology # constipation continue home bowel regimen will treat with lactulose #LYNETTE - Most likely pre-renal due to sepsis and dehydration - IV fluiids - follow BMP # Lactic acidosis resolved likely due to sepsis # DM elevated blood sugars takes 70 30 insulin b.i.d. will change to Lantus b.i.d. and add insulin sliding scale recommend diabetic # history of HIV continue home medication DVT ppx: lovenox
[2021-03-05 11:28] LABS: Hepatitis A Antibody IgM 0.83 Index (0-0.79)
[2021-03-05] MEDS: Insulin Glargine,Hum.rec.anlog 100 UNIT/ML 10 ML VIAL 35 UNIT SUBCUT (11:58)
[2021-03-05] MEDS: Lactulose 20 GM/30 ML SOLUTION PO (11:58)
[2021-03-05 12:07] LABS: Glucose, Whole Blood 272 mg/dL (60-115)
[2021-03-05 12:28] LABS: Glucose, Whole Blood 279 mg/dL (60-115)
[2021-03-05 12:53] LABS: ~Hepatitis A Antibody IgM GRAYZONE (Nonreactive)
--- NOTE | 2021-03-05 15:09 | MHC.CM.PN ---
JOHNNY SPOKE TO THE HARVEST WORKER AT [facility], [place] ([phone]). HE REPORTS THE PT IS INDEPENDENT WITH PERSONAL CARE AND AMBULATION AT BASELINE HE REPORTS THE PT DOES NOT REQUIRE DME HE PROVIDED CONTACT INFORMATION FOR PTS SISTER/HCP JATIN DOMINGUEZ [phone]. [place] REPORTS IF PT HAS NEW MEDS AT DC, THEY SHOULD BE SENT TO [facility] IN [place] HE ALSO REPORTS [facility] STAFF WILL PROVIDE TRANSPORT IF THERE ARE ENOUGH OF THEM, OTHERWISE HE WILL NEED TRANSPORT ARRANGED JOHNNY CALLED PTS SISTER, JATIN. SHE CONFIRMS THE DC PLAN WILL BE FOR PT TO RETURN TO HIS [facility] AND ASKS THAT SHE BE UPDATED WHEN A DC DATE IS KNOWN
--- NOTE | 2021-03-05 15:44 | PC.NURSE ---
Attempted to reach [place] [phone] for patient transfer multiple times via phone call and tiger text. It has been 50 minutes since room assignment. Per charge nurse, patient brought up to unit with this RN's extension and transfer sheet; receiving RN notified via tiger text as well.
[2021-03-05] MEDS: 0.9 % Sodium Chloride Flush 3 ML SYRINGE IVFLUSH ×2 (17:59→23:32)
[2021-03-05 20:24] LABS: Glucose, Whole Blood 116 mg/dL (60-115)
[2021-03-05] MEDS: Tamsulosin HCL 0.4 MG CAPSULE PO (21:09)
[2021-03-05] MEDS: risperiDONE 2 MG TABLET 4 MG PO (21:10)
[2021-03-05] MEDS: Insulin Glargine,Hum.rec.anlog 100 UNIT/ML 10 ML VIAL 22 UNIT SUBCUT (21:10)
[2021-03-06] MEDS: Enoxaparin Sodium 40 MG/0.4 ML SYRINGE SUBCUT (04:59)
[2021-03-06] MEDS: Omeprazole 20 MG CAPSULE.DR PO (04:59)
[2021-03-06] MEDS: Piperacillin Sodium/Tazobactam 3.375 GM in 0.9 % Sodium Chloride 50 ML IV ×4 (04:59→22:52)
[2021-03-06] MEDS: Lactated Ringers 1,000 ML 100 ML IVCONT ×2 (05:06→21:46)
[2021-03-06 06:25] LABS: Basophils Percent Auto 0.2 % (0-2); Eosinophils Absolute Auto 0.1 X10*3/uL (0.0-0.4); Eosinophils Percent Auto 0.5 % (0-4); Hematocrit 32.7 % (42.0-52.0); Hemoglobin 11.1 g/dl (14.0-18.0); Imm Gran Abs Auto 0.31 X10*3/uL (0.00-0.03); Imm Gran Pct Auto 1.8 % (0.0-0.4); Lymphocytes Absolute Auto 1.5 X10*3/uL (1.2-4.9); Lymphocytes Percent Auto 9.1 % (20-40); MANUAL DIFF FLAG SCAN; Mean Corpuscular HGB Conc 33.9 g/dl (31.0-36.0); Mean Corpuscular Hemoglobin 30.4 pg (27.0-33.0); Mean Corpuscular Volume 89.6 fL (80.0-98.0); Mean Platelet Volume 12.3 fL (9.4-12.4); Monocytes Absolute Auto 1.5 X10*3/uL (0.1-1.2); Monocytes Percent Auto 9.1 % (2-11); Neutrophils Absolute Auto 13.4 x10*3/uL (2.0-8.3); Neutrophils Percent Auto 79.3 % (45-73); Platelet Count 100 X10*3/uL (160-400); Red Blood Count 3.65 X10*6/uL (4.60-5.80); SCAN SMEAR FLAG 1; White Blood Count 16.9 X10*3/uL (4.8-10.8)
[2021-03-06 06:47] LABS: Alanine Aminotransferase 124 U/L (0-40); Albumin Level 3.2 g/dL (3.5-5.0); Alkaline Phosphatase 98 U/L (39-117); Anion Gap 12 (12-20); Aspartate Amino Transferase 64 U/L (5-37); Bilirubin Direct 0.3 mg/dL (0.0-0.5); Bilirubin Total 0.5 mg/dL (0.0-1.0); Blood Urea Nitrogen 17 mg/dL (9-16); Calcium 8.9 mg/dL (8.4-10.2); Carbon Dioxide 23 mmol/L (22-29); Chloride 110 mmol/L (96-108); Creatinine Clr Calc Pharmacy 59.1; Estimated Glomerular Filt Rate 55; Glucose Random 148 mg/dL (60-115); Potassium 3.9 mmol/L (3.3-5.1); Sodium 141 mmol/L (135-145); Total Protein 5.6 g/dL (6.5-8.0)
[2021-03-06 07:16] VITALS: BP 116/55; PULSE 89; RESP 18; TEMP 35.5; O2SAT 96
[2021-03-06 07:27] LABS: SLIDE REVIEW VERIFIED
[2021-03-06 07:30] LABS: Glucose, Whole Blood 159 mg/dL (60-115)
[2021-03-06] MEDS: Insulin Lispro 100 UNIT/ML 3 ML VIAL SUBCUT (08:23)
[2021-03-06] MEDS: polyethylene glycoL 3350 17 GM POWD.PACK PO (08:24)
[2021-03-06] MEDS: Insulin Glargine,Hum.rec.anlog 100 UNIT/ML 10 ML VIAL 35 UNIT SUBCUT (08:24)
[2021-03-06] MEDS: Lithium Carbonate 300 MG CAPSULE 900 MG PO (08:25)
[2021-03-06] MEDS: Propranolol HCL 20 MG TABLET PO (08:25)
[2021-03-06] MEDS: Gabapentin 100 MG CAPSULE 200 MG PO ×3 (08:25→21:48)
[2021-03-06] MEDS: Docusate Sodium 100 MG CAPSULE PO ×2 (08:26→21:48)
[2021-03-06] MEDS: 0.9 % Sodium Chloride Flush 3 ML SYRINGE IVFLUSH (08:26)
[2021-03-06] MEDS: vancomycin HCL 1,250 MG in 0.9 % Sodium Chloride 250 ML 166.67 MG IV (08:26)
[2021-03-06] MEDS: Finasteride 5 MG TABLET PO (08:26)
[2021-03-06 10:34] LABS: Glucose, Whole Blood 194 mg/dL (60-115)
--- NOTE | 2021-03-06 12:05 | P.PNIM_ITS ---
Subjective Subjective Date of Service: 03/06/21 Interval History: the patient was seen and evaluated this morning Laying in bed, feels comfortable overall Denies any fever, chills or shortness of breath No reported other overnight events. Review of Systems No fever, chills or weakness No chest pain, palpitation No shortness of breath or coughing No abdominal pain, nausea or vomiting No urinary symptoms Reporting wounds in his foot with associated pain Physical Exam Verdana 4l Vital Signs: Verdana 4d Verdana 4d Vital Signs: Verdana 4d Verdana 4Bd Last Vital Signs Verdana 4d Service Delivery Manager New 4d Service Delivery Manager New 4d Temp 96 F L 03/06/21 07:16 Service Delivery Manager New 4d Pulse 89 03/06/21 07:16 Service Delivery Manager New 4d Resp 18 03/06/21 07:16 BP 116/55 L 03/06/21 07:16 Pulse Ox 96 03/06/21 07:16 BMI result Body Mass Index 23.6 Const: Other: Constitutional : Alert, oriented, not in distress Neck : Normal inspection, Supple Cardiovascular : RRR, S1 S2, no lower extremity edema Respiratory : Good bilateral air entry, no crackles, wheezes or rhonchi Gastrointestinal: soft, lax, Normal bowel sounds, Non tender Skin : Warm, Dry Ext: bilateral feet plantar surface,thick dry skin , open wound left foot metatarsal, no drainage,? right foot lateral surface significant callus with bruising ?Sin clear urine Neurological : Alert & oriented x3, No focal deficit Objective Data Active Medications Acetaminophen (Acetaminophen 325 Mg Tablet) 650 mg PO Q6H PRN PRN Reason: Pain, Mild (Pain Scale 1-3) Dextrose (Dextrose 50 % 25 Gm/50 Ml Syringe) 25 gm IVPUSH Q15M PRN; Protocol PRN Reason: per Hypoglycemia Standing Ord. Docusate Sodium (Docusate Sodium 100 Mg Capsule) 100 mg PO DAILY PRN PRN Reason: Constipation Docusate Sodium (Docusate Sodium 100 Mg Capsule) 100 mg PO BID [facility] Last Admin: 03/06/21 08:26 Dose: 100 mg Documented by: KAMILLE Enoxaparin Sodium (Enoxaparin Sodium 40 Mg/0.4 Ml Syringe) 40 mg SUBCUT Q24H [facility] Last Admin: 03/06/21 04:59 Dose: 40 mg Documented by: BEE Finasteride (Finasteride 5 Mg Tablet) 5 mg PO DAILY [facility] Last Admin: 03/06/21 08:26 Dose: 5 mg Documented by: KAMILLE Gabapentin (Gabapentin 100 Mg Capsule) 200 mg PO TID [facility] Last Admin: 03/06/21 08:25 Dose: 200 mg Documented by: KAMILLE Glucose (Glucose Gel 15 Gm Gel..Gram.) 15 gm PO Q15M PRN; Protocol PRN Reason: per Hypoglycemia Standing Ord. Piperacillin Sod/Tazobactam (Sod 3.375 gm/ Sodium Chloride) 50 mls @ 100 mls/hr IV Q6H [facility] Last Infusion: 03/06/21 05:35 Dose: 0 mls/hr Documented by: BEE Lactated Ringer's (Lr) 1,000 mls @ 100 mls/hr IVCONT .Q10H [facility] Last Admin: 03/06/21 05:06 Dose: 100 mls/hr Documented by: BEE Vancomycin HCl 1,250 mg/ (Sodium Chloride) 250 mls @ 166.667 mls/hr IV Q24H [facility] Last Admin: 03/06/21 08:26 Dose: 166.67 mls/hr Documented by: KAMILLE Insulin Glargine (Insulin Glargine,Hum.Rec.Anlog 100 Unit/Ml 10 Ml Vial) 22 unit SUBCUT BEDTIME [facility] Last Admin: 03/05/21 21:10 Dose: 22 unit Documented by: BEE Insulin Glargine (Insulin Glargine,Hum.Rec.Anlog 100 Unit/Ml 10 Ml Vial) 35 unit SUBCUT DAILY [facility] Last Admin: 03/06/21 08:24 Dose: 35 unit Documented by: KAMILLE Insulin Human Lispro (Insulin Lispro 100 Unit/Ml 3 Ml Vial) 0 unit SUBCUT QIDACHS [facility]; Protocol Last Admin: 03/06/21 08:23 Dose: 4 unit Documented by: KAMILLE [place] Carbonate ([place] Carbonate 300 Mg Capsule) 900 mg PO DAILY [facility] Last Admin: 03/06/21 08:25 Dose: 900 mg Documented by: KAMILLE Patient Own Medication (Genvoya [Xkaidbp-Uwy-Fccdc- Tenof Alafen] 150- 150-200-10 Mg Tab) 1 each PO DAILY [facility] Last Admin: 03/05/21 11:58 Dose: 1 each Documented by: DANETTE Omeprazole (Omeprazole 20 Mg Capsule.Dr) 20 mg PO DAILY@0630 [facility] Last Admin: 03/06/21 04:59 Dose: 20 mg Documented by: BEE Ondansetron HCl (Ondansetron Hcl 4 Mg/2 Ml Vial) 4 mg IVPUSH Q8H PRN PRN Reason: Nausea and Vomiting Ondansetron HCl (Ondansetron Hcl 4 Mg/2 Ml Vial) 4 mg IVPUSH Q8H PRN PRN Reason: Nausea and Vomiting Pharmacy Consult (Consult Rx Vancomycin Dosing) 1 each MISCELLANE DAILY PRN PRN Reason: Consult order Polyethylene Glycol (Polyethylene Glycol 3350 17 Gm Powd.Pack) 17 gm PO DAILY [facility] Last Admin: 03/06/21 08:24 Dose: 17 gm Documented by: KAMILLE Propranolol HCl (Propranolol Hcl 20 Mg Tablet) 20 mg PO DAILY [facility]; Protocol Last Admin: 03/06/21 08:25 Dose: 20 mg Documented by: KAMILLE Risperidone (Risperidone 2 Mg Tablet) 4 mg PO BEDTIME [facility] Last Admin: 03/05/21 21:10 Dose: 4 mg Documented by: BEE Sodium Chloride (0.9 % Sodium Chloride Flush 3 Ml Syringe) 3 ml IVFLUSH QSHIFT [facility] Last Admin: 03/06/21 08:26 Dose: 3 ml Documented by: KAMILLE Tamsulosin HCl (Tamsulosin Hcl 0.4 Mg Capsule) 0.4 mg PO BEDTIME [facility] Last Admin: 03/05/21 21:09 Dose: 0.4 mg Documented by: BEE Labs CBC & Chem 7: 03/06/21 05:51 03/06/21 05:51 Labs: Laboratory Results - last 24 hr 03/05/21 03/05/21 03/05/21 10:45 11:57 12:25 MCV MCH MCHC RDW Plt Count MPV Immature Gran % (Auto) Neut % (Auto) Lymph % (Auto) [place] % (Auto) Eos % (Auto) Baso % (Auto) Lymph # (Auto) [place] # (Auto) Eos # (Auto) Baso # (Auto) Abs Immat Gran (auto) Absolute Neuts (auto) Absolute Nucleated RBC Nucleated RBC % (auto) Smear Tech's Comments Anion Gap Estim Creat Clear Calc Estimated GFR POC Glucose 272 H 279 H Random Glucose Calcium Total Bilirubin Direct Bilirubin AST ALT Alkaline Phosphatase Total Protein Albumin Hepatitis A IgM Ab GRAYZONE 03/05/21 03/06/21 03/06/21 20:04 05:51 05:51 MCV 89.6 MCH 30.4 MCHC 33.9 RDW 12.0 Plt Count 100 L MPV 12.3 Immature Gran % (Auto) 1.8 H Neut % (Auto) 79.3 H Lymph % (Auto) 9.1 L [place] % (Auto) 9.1 Eos % (Auto) 0.5 Baso % (Auto) 0.2 Lymph # (Auto) 1.5 [place] # (Auto) 1.5 H Eos # (Auto) 0.1 Baso # (Auto) 0.0 Abs Immat Gran (auto) 0.31 H Absolute Neuts (auto) 13.4 H Absolute Nucleated RBC 0.000 Nucleated RBC % (auto) 0.0 Smear Tech's Comments VERIFIED Anion Gap 12 Estim Creat Clear Calc 59.1 Estimated GFR 55 POC Glucose 116 H Random Glucose 148 H D Calcium 8.9 D Total Bilirubin 0.5 Direct Bilirubin 0.3 AST 64 H ALT 124 H Alkaline Phosphatase 98 D Total Protein 5.6 L Albumin 3.2 L Hepatitis A IgM Ab 03/06/21 03/06/21 07:16 10:29 MCV MCH MCHC RDW Plt Count MPV Immature Gran % (Auto) Neut % (Auto) Lymph % (Auto) [place] % (Auto) Eos % (Auto) Baso % (Auto) Lymph # (Auto) [place] # (Auto) Eos # (Auto) Baso # (Auto) Abs Immat Gran (auto) Absolute Neuts (auto) Absolute Nucleated RBC Nucleated RBC % (auto) Smear Tech's Comments Anion Gap Estim Creat Clear Calc Estimated GFR POC Glucose 159 H 194 H Random Glucose Calcium Total Bilirubin Direct Bilirubin AST ALT Alkaline Phosphatase Total Protein Albumin Hepatitis A IgM Ab Microbiology Microbiology Results: Microbiology 03/05/21 00:47 Blood Culture - Preliminary Blood - Venous Strep agalactiae (Grp B) 03/05/21 00:42 Blood Culture - Preliminary Blood - Venous Strep agalactiae (Grp B) Assessment and Plan (1) Bacteremia due to group B Streptococcus: Status: Acute (2) Sepsis: Status: Acute (3) Open wnd foot-complicated: Status: Acute Plan 55 M with past medical history of BPH with urinary obstruction/LUTS, chronic prostatitis for which he just finished a course of levofloxacin on 03/02, recurrent UTIs, hepatitis, HIV, who presents to the hospital feeling ill found to have sepsis # sepsis # secondary to Bacteremia GBS from non-healing left foot wounds abd CT negative, cxr -ve Blood cultures growing group B strep , pending final sensitivity Repeat blood cultures Continue IV antibiotic To get ID evaluation #Bilateral foot ulcers in the setting of DM Elevated ESR/CRP consult ID hold off MRI until evaluated by ID #LYNETTE Improve Continue IV fluiids follow BMP # Lactic acidosis Resolved # DM - hyperglycemic - LDSS and diabetic diet DVT ppx: lovenox Quality Stroke Does the patient have a stroke diagnosis?: No VTE Prior VTE?: No VTE Risk Level:: Medical - moderate - high VTE Device Contraindication: Treatment Not Indicated VTE Drug Contraindication: N/A - Med Ordered
[2021-03-06] MEDS: ondansetron HCL 4 MG/2 ML VIAL IVPUSH (12:17)
--- NOTE | 2021-03-06 14:43 | MHC.CM.PN ---
PLAN IS FOR ID INPUT AND LT IV ABX THIS EDGE KITTER SPOKE WITH [facility] STAFF, BRIDGER ([phone]) WHO ASKS FOR A REFERRAL TO THE [facility]. PATIENT IS H CONNECTED. REFERRAL PLACED AND CASE MANAGEMENT WILL FOLLOW UP WITH PROGRESS TOWARDS DISCHARGE
--- NOTE | 2021-03-06 15:17 | MHC.CM.PN ---
COVID VACCINATED PFIZER 03/25/20 04/15/20 11/26/20 INFORMATION ADDED INTO EXPANSE AND ALLSCRIPTS REFERRAL TO THE [facility]
[2021-03-06 15:48] VITALS: BP 119/58; PULSE 79; RESP 18; TEMP 36.6; O2SAT 96
[2021-03-06 16:07] LABS: Glucose, Whole Blood 134 mg/dL (60-115)
[2021-03-06 18:58] VITALS: BP 129/64; PULSE 83; RESP 18; TEMP 37.9; O2SAT 96
[2021-03-06 19:56] LABS: Glucose, Whole Blood 130 mg/dL (60-115)
[2021-03-06] MEDS: Tamsulosin HCL 0.4 MG CAPSULE PO ×2 (21:47→21:48)
[2021-03-06] MEDS: risperiDONE 2 MG TABLET 4 MG PO (21:48)
[2021-03-06] MEDS: Insulin Glargine,Hum.rec.anlog 100 UNIT/ML 10 ML VIAL 22 UNIT SUBCUT (21:49)
--- NOTE | 2021-03-06 22:49 | P.CNID_ITS ---
History of Present Illness Data of Consult Service Date: 03/05/21 Requesting physician: Alivia Rock Primary Care Provider: Shell Lopez MD HPI Reason for consult: sepsis ,Group B strep He presents with weakness and fatigue and cant walk He has wounds plantar feet and found to have Group B strep He sees me for HIV care and is doing well Review of Systems Verdana 4l Review of Systems: Yes all other systems are reviewed and Verdana 4d are negative PMFSH Past Medical History Medical History BPH w urinary obs/LUTS Chronic prostatitis Erectile dysfunction due to arterial insufficiency Hepatitis HIV (human immunodeficiency virus infection) Urinary hesitancy Family History Family History Father No problems noted. Mother No problems noted. Family history: reviewed and not pertinent Surgical History Surgical History No pertinent past surgical history Social History Social History Household Members: Other Housing: Other Do you presently have visiting nurse or other home services: Yes Patient Tobacco Use Status: Tobacco use Unknown service: No Current occupational status: unemployed Meds Allergies Allergy/AdvReac Type Severity Reaction Status Date / Time acetaminophen [From Allergy Unknown UNKNOWN Verified 02/16/21 11:10 TYLENOL] aspirin [ASA] Allergy Unknown AGITATION Verified 02/16/21 11:10 trazodone [TRAZODONE] AdvReac Unknown HYPER Verified 02/16/21 11:10 Active Medications: Current Medications Acetaminophen (Acetaminophen 325 Mg Tablet) 650 mg PO Q6H PRN PRN Reason: Pain, Mild (Pain Scale 1-3) Dextrose (Dextrose 50 % 25 Gm/50 Ml Syringe) 25 gm IVPUSH Q15M PRN; Protocol PRN Reason: per Hypoglycemia Standing Ord. Docusate Sodium (Docusate Sodium 100 Mg Capsule) 100 mg PO DAILY PRN PRN Reason: Constipation Docusate Sodium (Docusate Sodium 100 Mg Capsule) 100 mg PO BID [facility] Last Admin: 03/06/21 21:48 Dose: 100 mg Documented by: Enoxaparin Sodium (Enoxaparin Sodium 40 Mg/0.4 Ml Syringe) 40 mg SUBCUT Q24H [facility] Last Admin: 03/06/21 04:59 Dose: 40 mg Documented by: Finasteride (Finasteride 5 Mg Tablet) 5 mg PO DAILY [facility] Last Admin: 03/06/21 08:26 Dose: 5 mg Documented by: Gabapentin (Gabapentin 100 Mg Capsule) 200 mg PO TID [facility] Last Admin: 03/06/21 21:48 Dose: 200 mg Documented by: Glucose (Glucose Gel 15 Gm Gel..Gram.) 15 gm PO Q15M PRN; Protocol PRN Reason: per Hypoglycemia Standing Ord. Piperacillin Sod/Tazobactam (Sod 3.375 gm/ Sodium Chloride) 50 mls @ 100 mls/hr IV Q6H [facility] Last Infusion: 03/06/21 18:46 Dose: Infused Documented by: Lactated Ringer's (Lr) 1,000 mls @ 100 mls/hr IVCONT .Q10H [facility] Last Admin: 03/06/21 21:46 Dose: 100 mls/hr Documented by: Vancomycin HCl 1,250 mg/ (Sodium Chloride) 250 mls @ 166.667 mls/hr IV Q24H [facility] Last Infusion: 03/06/21 12:28 Dose: Infused Documented by: Insulin Glargine (Insulin Glargine,Hum.Rec.Anlog 100 Unit/Ml 10 Ml Vial) 22 unit SUBCUT BEDTIME [facility] Last Admin: 03/06/21 21:49 Dose: 22 unit Documented by: Insulin Glargine (Insulin Glargine,Hum.Rec.Anlog 100 Unit/Ml 10 Ml Vial) 35 unit SUBCUT DAILY [facility] Last Admin: 03/06/21 08:24 Dose: 35 unit Documented by: Insulin Human Lispro (Insulin Lispro 100 Unit/Ml 3 Ml Vial) 0 unit SUBCUT QIDACHS [facility]; Protocol Last Admin: 03/06/21 21:48 Dose: Not Given Documented by: [place] Carbonate ([place] Carbonate 300 Mg Capsule) 900 mg PO DAILY [facility] Last Admin: 03/06/21 08:25 Dose: 900 mg Documented by: Patient Own Medication (Genvoya [Bqbsiec-Ukw-Bdwbf- Tenof Alafen] 150- 150-200-10 Mg Tab) 1 each PO DAILY [facility] Last Admin: 03/06/21 12:18 Dose: 1 each Documented by: Omeprazole (Omeprazole 20 Mg Capsule.) 20 mg PO DAILY@0630 [facility] Last Admin: 03/06/21 04:59 Dose: 20 mg Documented by: Ondansetron HCl (Ondansetron Hcl 4 Mg/2 Ml Vial) 4 mg IVPUSH Q8H PRN PRN Reason: Nausea and Vomiting Last Admin: 03/06/21 12:17 Dose: 4 mg Documented by: Ondansetron HCl (Ondansetron Hcl 4 Mg/2 Ml Vial) 4 mg IVPUSH Q8H PRN PRN Reason: Nausea and Vomiting Pharmacy Consult (Consult Rx Vancomycin Dosing) 1 each MISCELLANE DAILY PRN PRN Reason: Consult order Polyethylene Glycol (Polyethylene Glycol 3350 17 Gm Powd.Pack) 17 gm PO DAILY [facility] Last Admin: 03/06/21 08:24 Dose: 17 gm Documented by: Propranolol HCl (Propranolol Hcl 20 Mg Tablet) 20 mg PO DAILY [facility]; Protocol Last Admin: 03/06/21 08:25 Dose: 20 mg Documented by: Risperidone (Risperidone 2 Mg Tablet) 4 mg PO BEDTIME [facility] Last Admin: 03/06/21 21:48 Dose: 4 mg Documented by: Sodium Chloride (0.9 % Sodium Chloride Flush 3 Ml Syringe) 3 ml IVFLUSH QSHIFT [facility] Last Admin: 03/06/21 15:39 Dose: Not Given Documented by: Tamsulosin HCl (Tamsulosin Hcl 0.4 Mg Capsule) 0.4 mg PO BEDTIME [facility] Last Admin: 03/06/21 21:48 Dose: 0.4 mg Documented by: Home Medications Medication Instructions Recorded Confirmed Last Taken Type benztropine 2 mg 2 mg PO BID 02/16/21 03/05/21 Unknown History tablet docusate sodium 100 mg PO BID 02/16/21 03/05/21 Unknown History 100 mg capsule elviteg 150 1 tab PO DAILY 02/16/21 03/05/21 Unknown History mg-cob 150 mg-emtricit 200 mg-tenofo alafenam 10 mg tablet (Genvoya) gabapentin 100 mg 200 mg PO TID 02/16/21 03/05/21 Unknown History capsule insulin aspar 46 unit SUBCUT 02/16/21 03/05/21 Unknown History prot-insulin BEDTIME aspart 100 unit/mL (70-30) subcutaneous pen (Novolog Mix 70-30FlexPen U-100) lithium carbonate 900 mg PO DAILY 02/16/21 03/05/21 Unknown History 300 mg tablet multivitamin-mine 1 tab PO DAILY 02/16/21 03/05/21 Unknown History rals-lutein tablet (Cerovite Senior) pen needle, #50 ea 02/16/21 03/05/21 Unknown History diabetic 32 gauge x 5/32 (BD Viv 2nd Gen Pen Needle) pravastatin 40 mg 40 mg PO BEDTIME 02/16/21 03/05/21 Unknown History tablet propranolol 20 mg 20 mg PO DAILY 02/16/21 03/05/21 Unknown History tablet risperidone 3 mg 6 mg PO BEDTIME 02/16/21 03/05/21 Unknown History tablet insulin aspar 56 unit SUBCUT 03/05/21 03/05/21 Unknown History prot-insulin DAILY aspart 100 unit/mL (70-30) subcutaneous pen (Novolog Mix 70-30FlexPen U-100) omeprazole 20 mg 1 cap PO DAILY 03/05/21 03/05/21 Unknown History capsule,delayed release Physical Exam Verdana 4l Vital Signs: Verdana 4d Verdana 4d Vital Signs: Verdana 4d Verdana 4Bd Last Vital Signs Verdana 4d Recreation Facility Attendant New 4d Recreation Facility Attendant New 4d Temp 100.3 F 03/06/21 18:58 Recreation Facility Attendant New 4d Pulse 83 03/06/21 18:58 Recreation Facility Attendant New 4d Resp 18 03/06/21 18:58 BP 129/64 03/06/21 18:58 Pulse Ox 96 03/06/21 18:58 BMI result Body Mass Index 23.6 Const: General: cooperative HENMT: Head: Yes normal to inspection Mouth: Normal oral and palatal mucosa present Resp: Effort & Inspection: normal respiratory effort Cardio: Rate: regular rate Rhythm: regular rhythm GI: Palpation (GI): Soft to palpation and nontender Skin: General skin exam: no rashes or lesions noted Extrem: Other: plantar surface erythema,open wounds feet Results Labs CBC & Chem 7: 03/07/21 04:27 03/07/21 04:27 Labs: Short CBC 03/06/21 Range/Units 05:51 WBC 16.9 H (4.8-10.8) X10*3/uL Hgb 11.1 L (14.0-18.0) g/dl Hct 32.7 L (42.0-52.0) % Plt Count 100 L (160-400) X10*3/uL BMP 03/06/21 05:51 Sodium 141 Potassium 3.9 Chloride 110 H Carbon Dioxide 23 BUN 17 H Creatinine 1.35 Calcium 8.9 D Liver Function 03/06/21 Range/Units 05:51 Total Bilirubin 0.5 (0.0-1.0) mg/dL Direct Bilirubin 0.3 (0.0-0.5) mg/dL AST 64 H (5-37) U/L ALT 124 H (0-40) U/L Alkaline Phosphatase 98 D (39-117) U/L Albumin 3.2 L (3.5-5.0) g/dL Microbiology Microbiology Results: Microbiology 03/05/21 00:47 Blood - Venous Blood Culture - Preliminary Strep agalactiae (Grp B) 03/05/21 00:42 Blood - Venous Blood Culture - Preliminary Strep agalactiae (Grp B) Assessment and Plan (1) Bacteremia due to group B Streptococcus: Status: Acute There is concern over bacteremia from feet He has completed Levaquin for prostatitis Plan Ceftriaxone ,duration to be determined Check MRI feet see if osteomyelitis and then six weeks IV would be preferable otherwise if no osteomyelitis change to po Ceftin for total antibiotics fourteen days from start
[2021-03-07] VITALS (8 sets, daily range): BP systolic 101–129; BP diastolic 60–76; PULSE 68–84; RESP 14–19; TEMP 35.5–37.6; O2SAT 90–98
[2021-03-07] MEDS: 0.9 % Sodium Chloride Flush 3 ML SYRINGE IVFLUSH ×3 (00:17→15:57)
[2021-03-07 05:32] LABS: Hemoglobin 11.6 g/dl (14.0-18.0); Mean Corpuscular HGB Conc 33.1 g/dl (31.0-36.0); Mean Corpuscular Hemoglobin 30.1 pg (27.0-33.0); Mean Corpuscular Volume 90.9 fL (80.0-98.0); Mean Platelet Volume 11.8 fL (9.4-12.4); Platelet Count 124 X10*3/uL (160-400); Red Blood Count 3.85 X10*6/uL (4.60-5.80); Red Cell Distribution Width 11.9 % (11.0-16.0); White Blood Count 17.1 X10*3/uL (4.8-10.8)
[2021-03-07 05:54] LABS: Anion Gap 13 (12-20); Blood Urea Nitrogen 14 mg/dL (9-16); Calcium 9.4 mg/dL (8.4-10.2); Carbon Dioxide 25 mmol/L (22-29); Chloride 108 mmol/L (96-108); Creatinine Clr Calc Pharmacy 59.5; Estimated Glomerular Filt Rate 55; Glucose Random 87 mg/dL (60-115); Potassium 3.8 mmol/L (3.3-5.1); Sodium 142 mmol/L (135-145)
[2021-03-07] MEDS: Enoxaparin Sodium 40 MG/0.4 ML SYRINGE SUBCUT (06:26)
[2021-03-07] MEDS: Piperacillin Sodium/Tazobactam 3.375 GM in 0.9 % Sodium Chloride 50 ML IV (06:26)
[2021-03-07] MEDS: Omeprazole 20 MG CAPSULE.DR PO (06:27)
[2021-03-07 07:16] LABS: Glucose, Whole Blood 78 mg/dL (60-115)
[2021-03-07] MEDS: Propranolol HCL 20 MG TABLET PO (08:57)
[2021-03-07] MEDS: Lithium Carbonate 300 MG CAPSULE 900 MG PO (08:57)
[2021-03-07] MEDS: Finasteride 5 MG TABLET PO (08:57)
[2021-03-07] MEDS: Gabapentin 100 MG CAPSULE 200 MG PO ×3 (08:57→22:35)
[2021-03-07] MEDS: polyethylene glycoL 3350 17 GM POWD.PACK PO ×2 (08:57→13:29)
[2021-03-07] MEDS: Docusate Sodium 100 MG CAPSULE PO ×2 (08:58→22:35)
[2021-03-07] MEDS: vancomycin HCL 1,250 MG in 0.9 % Sodium Chloride 250 ML 166.66 MG IV (08:58)
[2021-03-07 11:10] LABS: Glucose, Whole Blood 146 mg/dL (60-115)
[2021-03-07] MEDS: cefTRIAXone sodium 1 GM in 0.9 % Sodium Chloride 50 ML IV (13:29)
--- NOTE | 2021-03-07 13:36 | HO.PM.IMPN ---
Subjective Subjective Date of Service: 03/07/21 Interval History: the patient was seen and evaluated this morning Laying in bed, feels comfortable overall Blood culture growing Streptococcus No reported other overnight events. Review of Systems No fever, chills or weakness No chest pain, palpitation No shortness of breath or coughing No abdominal pain, nausea or vomiting No urinary symptoms Reporting wounds in his foot with associated pain Physical Exam Vital Signs: Vital Signs: Last Vital Signs Temp 96 F L 03/07/21 11:05 Pulse 73 03/07/21 11:05 Resp 19 03/07/21 11:05 BP 125/72 03/07/21 11:05 Pulse Ox 98 03/07/21 11:05 BMI result Body Mass Index 23.6 Const: Other: Constitutional : Alert, oriented, not in distress Neck : Normal inspection, Supple Cardiovascular : RRR, S1 S2, no lower extremity edema Respiratory : Good bilateral air entry, no crackles, wheezes or rhonchi Gastrointestinal: soft, lax, Normal bowel sounds, Non tender Skin : Warm, Dry Ext: bilateral feet plantar surface,thick dry skin , open wound left foot metatarsal, no drainage,? right foot lateral surface significant callus with bruising ?Sin clear urine Neurological : Alert & oriented x3, No focal deficit Objective Data Active Medications Acetaminophen (Acetaminophen 325 Mg Tablet) 650 mg PO Q6H PRN PRN Reason: Pain, Mild (Pain Scale 1-3) Dextrose (Dextrose 50 % 25 Gm/50 Ml Syringe) 25 gm IVPUSH Q15M PRN; Protocol PRN Reason: per Hypoglycemia Standing Ord. Docusate Sodium (Docusate Sodium 100 Mg Capsule) 100 mg PO DAILY PRN PRN Reason: Constipation Docusate Sodium (Docusate Sodium 100 Mg Capsule) 100 mg PO BID [facility] Last Admin: 03/07/21 08:58 Dose: 100 mg Documented by: KAMILLE Enoxaparin Sodium (Enoxaparin Sodium 40 Mg/0.4 Ml Syringe) 40 mg SUBCUT Q24H [facility] Last Admin: 03/07/21 06:26 Dose: 40 mg Documented by: GWEN Finasteride (Finasteride 5 Mg Tablet) 5 mg PO DAILY [facility] Last Admin: 03/07/21 08:57 Dose: 5 mg Documented by: KAMILLE Gabapentin (Gabapentin 100 Mg Capsule) 200 mg PO TID [facility] Last Admin: 03/07/21 08:57 Dose: 200 mg Documented by: KAMILLE Glucose (Glucose Gel 15 Gm Gel..Gram.) 15 gm PO Q15M PRN; Protocol PRN Reason: per Hypoglycemia Standing Ord. Ceftriaxone Sodium 1 gm/ (Sodium Chloride) 50 mls @ 100 mls/hr IV Q24H [facility] Last Admin: 03/07/21 13:29 Dose: 100 mls/hr Documented by: KAMILLE Insulin Glargine (Insulin Glargine,Hum.Rec.Anlog 100 Unit/Ml 10 Ml Vial) 22 unit SUBCUT BEDTIME [facility] Last Admin: 03/06/21 21:49 Dose: 22 unit Documented by: MARISELA Insulin Glargine (Insulin Glargine,Hum.Rec.Anlog 100 Unit/Ml 10 Ml Vial) 35 unit SUBCUT DAILY [facility] Last Admin: 03/07/21 08:58 Dose: Not Given Documented by: KAMILLE Non-Admin Reason: refusing to eat Insulin Human Lispro (Insulin Lispro 100 Unit/Ml 3 Ml Vial) 0 unit SUBCUT QIDACHS [facility]; Protocol Last Admin: 03/07/21 13:29 Dose: Not Given Documented by: KAMILLE Non-Admin Reason: No Insulin Coverage [place] Carbonate ([place] Carbonate 300 Mg Capsule) 900 mg PO DAILY [facility] Last Admin: 03/07/21 08:57 Dose: 900 mg Documented by: KAMILLE Patient Own Medication (Genvoya [Mqmcaab-Fzw-Kzhgq- Tenof Alafen] 150- 150-200-10 Mg Tab) 1 each PO DAILY [facility] Last Admin: 03/07/21 08:59 Dose: 1 each Documented by: KAMILLE Omeprazole (Omeprazole 20 Mg Capsule.) 20 mg PO DAILY@0630 [facility] Last Admin: 03/07/21 06:27 Dose: 20 mg Documented by: GWEN Ondansetron HCl (Ondansetron Hcl 4 Mg/2 Ml Vial) 4 mg IVPUSH Q8H PRN PRN Reason: Nausea and Vomiting Last Admin: 03/06/21 12:17 Dose: 4 mg Documented by: KAMILLE Ondansetron HCl (Ondansetron Hcl 4 Mg/2 Ml Vial) 4 mg IVPUSH Q8H PRN PRN Reason: Nausea and Vomiting Pharmacy Consult (Consult Rx Vancomycin Dosing) 1 each MISCELLANE DAILY PRN PRN Reason: Consult order Polyethylene Glycol (Polyethylene Glycol 3350 17 Gm Powd.Pack) 17 gm PO DAILY [facility] Last Admin: 03/07/21 08:57 Dose: 17 gm Documented by: KAMILLE Polyethylene Glycol (Polyethylene Glycol 3350 17 Gm Powd.Pack) 17 gm PO DAILY [facility] Last Admin: 03/07/21 13:29 Dose: 17 gm Documented by: KAMILLE Propranolol HCl (Propranolol Hcl 20 Mg Tablet) 20 mg PO DAILY [facility]; Protocol Last Admin: 03/07/21 08:57 Dose: 20 mg Documented by: KAMILLE Risperidone (Risperidone 2 Mg Tablet) 4 mg PO BEDTIME [facility] Last Admin: 03/06/21 21:48 Dose: 4 mg Documented by: MARISELA Sodium Chloride (0.9 % Sodium Chloride Flush 3 Ml Syringe) 3 ml IVFLUSH QSHIFT [facility] Last Admin: 03/07/21 08:57 Dose: 3 ml Documented by: KAMILLE Tamsulosin HCl (Tamsulosin Hcl 0.4 Mg Capsule) 0.4 mg PO BEDTIME [facility] Last Admin: 03/06/21 21:48 Dose: 0.4 mg Documented by: MARISELA Labs CBC & Chem 7: 03/07/21 04:27 03/07/21 04:27 Labs: Laboratory Results - last 24 hr 03/06/21 03/06/21 03/07/21 15:51 19:02 04:27 MCV MCH MCHC RDW Plt Count MPV Absolute Nucleated RBC Nucleated RBC % (auto) Anion Gap Estim Creat Clear Calc Cancelled Estimated GFR Cancelled POC Glucose 134 H 130 H Random Glucose Calcium 03/07/21 03/07/21 03/07/21 04:27 04:27 07:11 MCV 90.9 MCH 30.1 MCHC 33.1 RDW 11.9 Plt Count 124 L MPV 11.8 Absolute Nucleated RBC 0.000 Nucleated RBC % (auto) 0.0 Anion Gap 13 Estim Creat Clear Calc 59.5 Estimated GFR 55 POC Glucose 78 Random Glucose 87 D Calcium 9.4 03/07/21 11:04 MCV MCH MCHC RDW Plt Count MPV Absolute Nucleated RBC Nucleated RBC % (auto) Anion Gap Estim Creat Clear Calc Estimated GFR POC Glucose 146 H Random Glucose Calcium Microbiology Microbiology Results: Microbiology 03/06/21 10:18 Blood Culture - Preliminary Blood - Venous No growth after 24 hours. 03/06/21 10:10 Blood Culture - Preliminary Blood - Venous No growth after 24 hours. 03/05/21 00:47 Blood Culture - Final Blood - Venous Strep agalactiae (Grp B) 03/05/21 00:42 Blood Culture - Final Blood - Venous Strep agalactiae (Grp B) Assessment and Plan (1) Bacteremia due to group B Streptococcus: Status: Acute (2) Open wnd foot-complicated: Status: Acute (3) LYNETTE (acute kidney injury): Status: Acute Plan 55 M with past medical history of BPH with urinary obstruction/LUTS, chronic prostatitis for which he just finished a course of levofloxacin on 03/02, recurrent UTIs, hepatitis, HIV, who presents to the hospital feeling ill found to have sepsis # sepsis, resolved # secondary to Bacteremia GBS from non-healing left foot wounds abd CT negative, cxr -ve Blood cultures growing group B strep , pending final sensitivity Repeat blood cultures Continue IV antibiotic ID evaluation appreciated, changed to ceftriaxone and will MRI pending MRI for the foot #Bilateral foot ulcers in the setting of DM Elevated ESR/CRP To do MRI #LYNETTE Improve Continue IV fluiids follow BMP # Lactic acidosis Resolved # DM - hyperglycemic - LDSS and diabetic diet DVT ppx: lovenox Quality Stroke Does the patient have a stroke diagnosis?: No VTE Prior VTE?: No VTE Risk Level:: Medical - moderate - high VTE Device Contraindication: Treatment Not Indicated VTE Drug Contraindication: N/A - Med Ordered
[2021-03-07 16:09] LABS: Glucose, Whole Blood 161 mg/dL (60-115)
[2021-03-07] MEDS: Insulin Lispro 100 UNIT/ML 3 ML VIAL SUBCUT (17:36)
[2021-03-07 19:59] LABS: Glucose, Whole Blood 126 mg/dL (60-115)
[2021-03-07] MEDS: risperiDONE 2 MG TABLET 4 MG PO (22:34)
[2021-03-08] MEDS: 0.9 % Sodium Chloride Flush 3 ML SYRINGE IVFLUSH ×3 (00:17→17:03)
[2021-03-08 03:52] VITALS: BP 115/64; PULSE 67; RESP 18; TEMP 37.2; O2SAT 96
[2021-03-08 04:42] LABS: HBS Num1 3.56 mIU/mL (0-7.99); HBc Num1 10.04 S/CO (0.00-0.79); HBsAGNum1 0.22 S/CO (0.00-0.99); Hepatitis B Surface Antigen Negative (Negative); ~HepC Num1 11.81 S/CO (0.00-0.79); ~Hepatitis B Surface Antibody NONREACTIVE (Nonreactive); ~Hepatitis C Antibody Reactive (Nonreactive)
[2021-03-08 05:21] LABS: HBc Num2 8.26 S/CO; Hepatitis B Core Antibody Reactive (Nonreactive)
[2021-03-08] MEDS: Enoxaparin Sodium 40 MG/0.4 ML SYRINGE SUBCUT (06:26)
[2021-03-08] MEDS: Omeprazole 20 MG CAPSULE.DR PO (06:26)
[2021-03-08 06:49] LABS: Creatinine Clr Calc Pharmacy 67.6; Estimated Glomerular Filt Rate > 60
[2021-03-08 06:57] LABS: Vancomycin Trough 9.6 mcg/mL (10.0-20.0)
[2021-03-08 07:53] LABS: Glucose, Whole Blood 143 mg/dL (60-115)
[2021-03-08 08:00] VITALS: BP 111/65; PULSE 82; RESP 18; TEMP 36.9; O2SAT 96
[2021-03-08] MEDS: Insulin Glargine,Hum.rec.anlog 100 UNIT/ML 10 ML VIAL 35 UNIT SUBCUT (08:28)
[2021-03-08] MEDS: Docusate Sodium 100 MG CAPSULE PO ×2 (08:29→20:35)
[2021-03-08] MEDS: Lithium Carbonate 300 MG CAPSULE 900 MG PO (08:29)
[2021-03-08] MEDS: Gabapentin 100 MG CAPSULE 200 MG PO ×3 (08:29→20:35)
[2021-03-08] MEDS: Propranolol HCL 20 MG TABLET PO (08:29)
[2021-03-08] MEDS: Finasteride 5 MG TABLET PO (08:30)
[2021-03-08] MEDS: polyethylene glycoL 3350 17 GM POWD.PACK PO (08:30)
[2021-03-08 11:41] LABS: Glucose, Whole Blood 172 mg/dL (60-115)
[2021-03-08] MEDS: Insulin Lispro 100 UNIT/ML 3 ML VIAL SUBCUT ×2 (13:28→20:34)
[2021-03-08] MEDS: cefTRIAXone sodium 1 GM in 0.9 % Sodium Chloride 50 ML IV (13:29)
--- NOTE | 2021-03-08 14:16 | MHC.CLN ---
NUTRITION REVIEW OF WEIGHT HISTORY COULD NOT CONFIRM REPORTED WEIGHT LOSS. VARIABLE INTAKE, 0-100%. ADDING GLUCERNA BID TO IMPROVE NUTRITIONAL INTAKE. PROVIDES 474 KCAL, 20 G PROTEIN.
--- NOTE | 2021-03-08 16:10 | PC.NURSE ---
Pt was in Rm 272 for PICC line placement, where I had hydro plant technician.service called, Roc for consent. Pt told Roc that he was refusing. Both myself and Kemi RN explained the importance of the picc line for his osteomyelitis-antibx for 6 weeks. Pt adamantly refused. Dr Curry notified through [employer].
--- NOTE | 2021-03-08 16:15 | MHC.CM.PN ---
Addendum entered by Anna Medina 03/08/21 16:27: PER CONVERSATION WITH [facility] LIAISON ([phone]) REFERRAL WILL BE PLACED TO AGENCY. CM WILL UPDATE TOMORROW AND [facility] WILL REVIEW, PATIENT REQUIRES A DAILY RN FOR THE ADMINISTRATION AND DISCONNECT OF THE IV ABX. Original Note: CALL TO [facility] RN BUBBA ([phone]) TO INFORM HIM THAT PATIENT WOULD BE GETTING A PICC PLACED TOMORROW AND PLAN IS FOR 1 G IV CEFTRIAXONE. BUBBA SAYS THAT ANY VNA WOULD NEED TO BE THERE DAILY FOR ADMINISTRATION AND DISCONNECT, STAFF IS UNABLE TO DO SO. CASE MANAGEMENT TO CALL [facility] LIAISON AND INQUIRE ABOUT THIS PRIOR TO PLACING A REFERRAL.
[2021-03-08 16:40] LABS: Glucose, Whole Blood 63 mg/dL (60-115)
[2021-03-08 17:14] VITALS: BP 125/93; PULSE 80; RESP 17; TEMP 36.6; O2SAT 99
[2021-03-08 19:51] VITALS: BP 121/74; PULSE 78; RESP 18; TEMP 36.6; O2SAT 97
[2021-03-08 20:15] LABS: Glucose, Whole Blood 259 mg/dL (60-115)
[2021-03-08] MEDS: Insulin Glargine,Hum.rec.anlog 100 UNIT/ML 10 ML VIAL 22 UNIT SUBCUT (20:34)
[2021-03-08] MEDS: Tamsulosin HCL 0.4 MG CAPSULE PO (20:35)
[2021-03-08] MEDS: risperiDONE 2 MG TABLET 4 MG PO (20:35)
[2021-03-09] VITALS: BP 121/74; PULSE 78; RESP 18; TEMP 36.6; O2SAT 96
[2021-03-09] MEDS: 0.9 % Sodium Chloride Flush 3 ML SYRINGE IVFLUSH ×3 (00:05→15:38)
[2021-03-09 04:00] VITALS: BP 119/66; PULSE 74; RESP 18; TEMP 36.6; O2SAT 97
[2021-03-09] MEDS: Omeprazole 20 MG CAPSULE.DR PO (05:13)
[2021-03-09] MEDS: Enoxaparin Sodium 40 MG/0.4 ML SYRINGE SUBCUT (05:14)
[2021-03-09 06:10] LABS: Creatinine Clr Calc Pharmacy 61.8; Estimated Glomerular Filt Rate 58
[2021-03-09 07:27] LABS: Glucose, Whole Blood 155 mg/dL (60-115)
[2021-03-09 07:37] VITALS: BP 127/88; PULSE 76; RESP 17; TEMP 36.4; O2SAT 97
[2021-03-09] MEDS: Finasteride 5 MG TABLET PO (08:36)
[2021-03-09] MEDS: Docusate Sodium 100 MG CAPSULE PO ×2 (08:36→20:53)
[2021-03-09] MEDS: Lithium Carbonate 300 MG CAPSULE 900 MG PO (08:36)
[2021-03-09] MEDS: Gabapentin 100 MG CAPSULE 200 MG PO ×3 (08:36→20:53)
[2021-03-09] MEDS: Propranolol HCL 20 MG TABLET PO (08:36)
[2021-03-09] MEDS: Insulin Lispro 100 UNIT/ML 3 ML VIAL SUBCUT ×2 (08:37→20:52)
[2021-03-09] MEDS: polyethylene glycoL 3350 17 GM POWD.PACK PO (08:37)
[2021-03-09] MEDS: Insulin Glargine,Hum.rec.anlog 100 UNIT/ML 10 ML VIAL 35 UNIT SUBCUT (08:38)
--- NOTE | 2021-03-09 11:25 | MHC.CM.PN ---
PLAN IS PICC TODAY (PATIENT ORIGINALLY REFUSED DESPITE IR MULTIPLE ATTEMPTS) [facility] IS WILLING TO OFFER DAILY VNA AND A REFERRAL IS NOW PLACED TO [facility]. CASE MANAGEMENT TO FOLLOW UP WITH NURSING HOME STAFF AND BUBBA PAT
--- NOTE | 2021-03-09 13:27 | HO.PICC ---
PICC Line Insertion NPICC Diagnosis: [Osteomyelitis of the foot] Indication: [6 wks antibiotics] Pertinent Labs: [reviewed] Technique: Following informed consent including risks, benefits and alternatives and using sterile technique including cap and mask, sterile gown, glove and drape, the [right] arm was prepped and draped in the usual sterile fashion of full barrier technique with CHG. Following completion of [place] Protocol the skin and soft tissues were anesthetized with 1% Lidocaine plain. Using ultrasound guidance, [right] basilic vein was accessed twice by Donovan Spangler RN, but unable to advance guidewire. Right basilic vein access was obtained on first attempt by Maria Alejandra Estrella RN. Over an 0.018 wire through peel-away sheath, a [4FR single lumen] PICC line was positioned. Catheter length is [41 CM] internal length, [0 CM] external length, for a total trimmed length of [41 CM]. The procedure was performed in [S272]. Tip verification was performed by Dax Walter with Sherlock 3CG. Tip located in SVC. Ultrasound was used to document vein patency and for needle entry. A formal ultrasound picture and cardiac rhythm strip was recorded. [employer] Distributor has released the line for use and it is currently dressed with a StatLock, Tegaderm, and CHG disc. Verification has been performed for blood return and line patency. Arm Circumference: [26 CM] Equipment: [[employer] Power PICC Solo] Catheter Type: [4FR single lumen PICC] Lot #: [[id number]]
[2021-03-09] MEDS: cefTRIAXone sodium 1 GM in 0.9 % Sodium Chloride 50 ML IV (14:00)
[2021-03-09 14:08] LABS: Glucose, Whole Blood 115 mg/dL (60-115)
--- NOTE | 2021-03-09 15:19 | P.PNIM_ITS ---
Subjective Subjective Date of Service: 03/09/21 Interval History: the patient was seen and evaluated this morning Laying in bed, feels comfortable overall Plan to get PICC line No reported other overnight events. Review of Systems No fever, chills or weakness No chest pain, palpitation No shortness of breath or coughing No abdominal pain, nausea or vomiting No urinary symptoms Reporting wounds in his foot with associated pain Physical Exam Verdana 4l Vital Signs: Verdana 4d Verdana 4d Vital Signs: Verdana 4d Verdana 4Bd Last Vital Signs Verdana 4d Forming Machine Adjuster New 4d Forming Machine Adjuster New 4d Temp 97.6 F 03/09/21 07:37 Forming Machine Adjuster New 4d Pulse 76 03/09/21 07:37 Forming Machine Adjuster New 4d Resp 17 03/09/21 07:37 BP 127/88 03/09/21 07:37 Pulse Ox 97 03/09/21 07:37 BMI result Body Mass Index 23.6 Const: Other: Constitutional : Alert, oriented, not in distress Neck : Normal inspection, Supple Cardiovascular : RRR, S1 S2, no lower extremity edema Respiratory : Good bilateral air entry, no crackles, wheezes or rhonchi Gastrointestinal: soft, lax, Normal bowel sounds, Non tender Skin : Warm, Dry Ext: bilateral feet plantar surface,thick dry skin , open wound left foot metatarsal, no drainage,? right foot lateral surface significant callus with bruising ?Sin clear urine Neurological : Alert & oriented x3, No focal deficit Objective Data Active Medications Acetaminophen (Acetaminophen 325 Mg Tablet) 650 mg PO Q6H PRN PRN Reason: Pain, Mild (Pain Scale 1-3) Dextrose (Dextrose 50 % 25 Gm/50 Ml Syringe) 25 gm IVPUSH Q15M PRN; Protocol PRN Reason: per Hypoglycemia Standing Ord. Docusate Sodium (Docusate Sodium 100 Mg Capsule) 100 mg PO DAILY PRN PRN Reason: Constipation Docusate Sodium (Docusate Sodium 100 Mg Capsule) 100 mg PO BID [facility] Last Admin: 03/09/21 08:36 Dose: 100 mg Documented by: STEPHANIE Enoxaparin Sodium (Enoxaparin Sodium 40 Mg/0.4 Ml Syringe) 40 mg SUBCUT Q24H [facility] Last Admin: 03/09/21 05:14 Dose: 40 mg Documented by: KOLE Finasteride (Finasteride 5 Mg Tablet) 5 mg PO DAILY [facility] Last Admin: 03/09/21 08:36 Dose: 5 mg Documented by: STEPHANIE Gabapentin (Gabapentin 100 Mg Capsule) 200 mg PO TID [facility] Last Admin: 03/09/21 14:03 Dose: 200 mg Documented by: STEPHANIE Glucose (Glucose Gel 15 Gm Gel..Gram.) 15 gm PO Q15M PRN; Protocol PRN Reason: per Hypoglycemia Standing Ord. Ceftriaxone Sodium 1 gm/ (Sodium Chloride) 50 mls @ 100 mls/hr IV Q24H [facility] Last Infusion: 03/09/21 14:52 Dose: 0 mls/hr Documented by: STEPHANIE Insulin Glargine (Insulin Glargine,Hum.Rec.Anlog 100 Unit/Ml 10 Ml Vial) 22 unit SUBCUT BEDTIME [facility] Last Admin: 03/08/21 20:34 Dose: 22 unit Documented by: KOLE Insulin Glargine (Insulin Glargine,Hum.Rec.Anlog 100 Unit/Ml 10 Ml Vial) 35 unit SUBCUT DAILY [facility] Last Admin: 03/09/21 08:38 Dose: 35 unit Documented by: STEPHANIE Insulin Human Lispro (Insulin Lispro 100 Unit/Ml 3 Ml Vial) 0 unit SUBCUT QIDACHS [facility]; Protocol Last Admin: 03/09/21 14:07 Dose: Not Given Documented by: STEPHANIE Non-Admin Reason: No Insulin Coverage [place] Carbonate ([place] Carbonate 300 Mg Capsule) 900 mg PO DAILY [facility] Last Admin: 03/09/21 08:36 Dose: 900 mg Documented by: STEPHANIE Patient Own Medication (Genvoya [Oytrszv-Dqy-Doazn- Tenof Alafen] 150- 150-200-10 Mg Tab) 1 each PO DAILY [facility] Last Admin: 03/09/21 08:38 Dose: 1 each Documented by: STEPHANIE Omeprazole (Omeprazole 20 Mg Capsule.) 20 mg PO DAILY@0630 [facility] Last Admin: 03/09/21 05:13 Dose: 20 mg Documented by: KOLE Ondansetron HCl (Ondansetron Hcl 4 Mg/2 Ml Vial) 4 mg IVPUSH Q8H PRN PRN Reason: Nausea and Vomiting Last Admin: 03/06/21 12:17 Dose: 4 mg Documented by: KAMILLE Ondansetron HCl (Ondansetron Hcl 4 Mg/2 Ml Vial) 4 mg IVPUSH Q8H PRN PRN Reason: Nausea and Vomiting Pharmacy Consult (Consult Rx Vancomycin Dosing) 1 each MISCELLANE DAILY PRN PRN Reason: Consult order Polyethylene Glycol (Polyethylene Glycol 3350 17 Gm Powd.Pack) 17 gm PO DAILY [facility] Last Admin: 03/09/21 08:37 Dose: 17 gm Documented by: STEPHANIE Polyethylene Glycol (Polyethylene Glycol 3350 17 Gm Powd.Pack) 17 gm PO DAILY [facility] Last Admin: 03/09/21 08:44 Dose: Not Given Documented by: STEPHANIE Non-Admin Reason: Duplicate Order Propranolol HCl (Propranolol Hcl 20 Mg Tablet) 20 mg PO DAILY [facility]; Protocol Last Admin: 03/09/21 08:36 Dose: 20 mg Documented by: STEPHANIE Risperidone (Risperidone 2 Mg Tablet) 4 mg PO BEDTIME [facility] Last Admin: 03/08/21 20:35 Dose: 4 mg Documented by: KOLE Sodium Chloride (0.9 % Sodium Chloride Flush 3 Ml Syringe) 3 ml IVFLUSH QSHIFT [facility] Last Admin: 03/09/21 08:38 Dose: 3 ml Documented by: STEPHANIE Sodium Chloride (0.9 % Sodium Chloride Flush 10 Ml Syringe) 5 ml IVFLUSH TID [facility] Tamsulosin HCl (Tamsulosin Hcl 0.4 Mg Capsule) 0.4 mg PO BEDTIME [facility] Last Admin: 03/08/21 20:35 Dose: 0.4 mg Documented by: KOLE Labs CBC & Chem 7: 03/07/21 04:27 03/09/21 05:42 Labs: Laboratory Results - last 24 hr 03/08/21 03/08/21 03/09/21 16:36 20:08 05:42 Estim Creat Clear Calc 61.8 Estimated GFR 58 POC Glucose 63 259 H 03/09/21 03/09/21 07:15 13:58 Estim Creat Clear Calc Estimated GFR POC Glucose 155 H 115 Microbiology Microbiology Results: Microbiology 03/06/21 10:18 Blood Culture - Preliminary Blood - Venous No growth after 48 hours. 03/06/21 10:10 Blood Culture - Preliminary Blood - Venous No growth after 48 hours. Assessment and Plan (1) Bacteremia due to group B Streptococcus: Status: Acute (2) Osteomyelitis of left foot: Status: Acute Plan 55 M with past medical history of BPH with urinary obstruction/LUTS, chronic prostatitis for which he just finished a course of levofloxacin on 03/02, recurrent UTIs, hepatitis, HIV, who presents to the hospital feeling ill found to have sepsis # sepsis, resolved # secondary to Bacteremia GBS from osteomyelitis left foot MRI foot positive for metatarsal 5th osteomyelitis Blood cultures growing group B strep Repeat blood cultures negative ID evaluation appreciated, changed to ceftriaxone Continue ceftriaxone To place a PICC line today with plan to discharge tomorrow #LYNETTE Improve Continue IV fluiids follow BMP # Lactic acidosis Resolved # DM hyperglycemic LDSS and diabetic diet DVT ppx: lovenox Dispo, to be discharged to care home on IV ceftriaxone for 6 weeks after receiving a dose tomorrow morning. Quality Stroke Does the patient have a stroke diagnosis?: No VTE Prior VTE?: No VTE Risk Level:: Medical - moderate - high VTE Device Contraindication: Treatment Not Indicated VTE Drug Contraindication: N/A - Med Ordered
[2021-03-09] MEDS: 0.9 % Sodium Chloride Flush 10 ML SYRINGE 5 ML IVFLUSH ×2 (15:38→20:53)
[2021-03-09 16:00] VITALS: BP 119/83; PULSE 76; RESP 18; TEMP 36.5; O2SAT 99
[2021-03-09 16:37] LABS: Glucose, Whole Blood 161 mg/dL (60-115)
[2021-03-09] MEDS: Benztropine Mesylate 1 MG TABLET 2 MG PO ×2 (17:39→21:05)
[2021-03-09 18:21] LABS: Hepatitis B Core Antibody IgM NON-REACTIVE (NON-REACTIVE)
[2021-03-09 19:55] VITALS: BP 101/67; PULSE 77; RESP 19; TEMP 36.4; O2SAT 96
[2021-03-09 20:26] LABS: Glucose, Whole Blood 155 mg/dL (60-115)
[2021-03-09] MEDS: Insulin Glargine,Hum.rec.anlog 100 UNIT/ML 10 ML VIAL 22 UNIT SUBCUT (20:52)
[2021-03-09] MEDS: risperiDONE 2 MG TABLET 4 MG PO (20:53)
[2021-03-09] MEDS: Tamsulosin HCL 0.4 MG CAPSULE PO (20:53)
[2021-03-09] MEDS: Pravastatin Sodium 40 MG TABLET PO (20:53)
[2021-03-09 23:55] VITALS: BP 123/77; PULSE 78; RESP 17; TEMP 36.8; O2SAT 97
[2021-03-10 03:55] LABS: Hepatitis A Antibody IgM 0.67 Index (0-0.79); ~Hepatitis A Antibody IgM Nonreactive (Nonreactive)
[2021-03-10 04:00] VITALS: BP 119/72; PULSE 75; RESP 17; TEMP 36.6; O2SAT 96
[2021-03-10] MEDS: 0.9 % Sodium Chloride Flush 3 ML SYRINGE IVFLUSH (04:53)
[2021-03-10] MEDS: Enoxaparin Sodium 40 MG/0.4 ML SYRINGE SUBCUT (06:18)
[2021-03-10] MEDS: Omeprazole 20 MG CAPSULE.DR PO (06:18)
[2021-03-10 06:25] LABS: Creatinine Clr Calc Pharmacy 61.8; Estimated Glomerular Filt Rate 58
[2021-03-10 07:23] VITALS: BP 113/69; PULSE 73; RESP 18; TEMP 36.9; O2SAT 97
[2021-03-10 07:41] LABS: Glucose, Whole Blood 88 mg/dL (60-115)
[2021-03-10] MEDS: 0.9 % Sodium Chloride Flush 10 ML SYRINGE 5 ML IVFLUSH (09:42)
[2021-03-10] MEDS: Gabapentin 100 MG CAPSULE 200 MG PO (09:46)
[2021-03-10] MEDS: Lithium Carbonate 300 MG CAPSULE 900 MG PO (09:47)
[2021-03-10] MEDS: Benztropine Mesylate 1 MG TABLET 2 MG PO (09:47)
[2021-03-10] MEDS: Docusate Sodium 100 MG CAPSULE PO (09:48)
[2021-03-10] MEDS: Propranolol HCL 20 MG TABLET PO (09:48)
[2021-03-10] MEDS: Multivitamin TABLET 1 TAB PO (09:48)
[2021-03-10] MEDS: Insulin Glargine,Hum.rec.anlog 100 UNIT/ML 10 ML VIAL 35 UNIT SUBCUT (09:49)
[2021-03-10] MEDS: Finasteride 5 MG TABLET PO (09:49)
[2021-03-10] MEDS: polyethylene glycoL 3350 17 GM POWD.PACK PO (09:50)
[2021-03-10 11:25] LABS: Glucose, Whole Blood 280 mg/dL (60-115)
--- NOTE | 2021-03-10 11:33 | P.DS_ITS ---
DS: Providers Provider Date of Service: 03/10/21 Date of admission: 03/05/21 04:40 Primary care physician: Shell Lopez MD Consults: 03/05/21 07:52 Consult to Infectious Diseases Routine Consulting Provider: Angie Wade Reason for consultation: fevers/sirs ? source Has provider been notified: No DS: Diagnosis Discharge Diagnosis (1) Bacteremia due to group B Streptococcus: Status: Acute (2) Osteomyelitis of left foot: Status: Acute DS: Summary Hospital Course Hospital Course: patient was admitted for severe sepsis due to Osteomyelitis left foot complicated by group b strep bacteremia complicated by LYNETTE on CKD II. he was treated with rocephin, cultures cleared. MRI confirmed OM, ID recommended 6 weeks IV rocephin (end april 16, 2021). picc line placed. lynette resolved. will be discharged home. Time Spent with Patient Time attestation: Total time spent providing and/or coordinating discharge services: Discharge coordination time: Greater than 30 minutes Quality: Stroke Does the patient have a stroke diagnosis?: No Physical Exam Verdana 4l Vital Signs: Verdana 4d Verdana 4d Vital Signs: Verdana 4d Verdana 4Bd Last Vital Signs Verdana 4d Optometrist President/Practice Owner New 4d Optometrist President/Practice Owner New 4d Temp 98.4 F 03/10/21 07:23 Optometrist President/Practice Owner New 4d Pulse 73 03/10/21 07:23 Optometrist President/Practice Owner New 4d Resp 18 03/10/21 07:23 BP 113/69 03/10/21 07:23 Pulse Ox 97 03/10/21 07:23 BMI result Body Mass Index 23.6 Const Other: Constitutional : Alert, oriented, not in distress Neck : Normal inspection, Supple Cardiovascular : RRR, S1 S2, no lower extremity edema Respiratory : Good bilateral air entry,? no crackles, wheezes or rhonchi Gastrointestinal:? soft, lax, Normal bowel sounds, Non tender Skin : Warm, Dry Ext:? bilateral feet plantar surface,thick dry skin , open wound left foot metatarsal, no drainage,? right foot lateral surface significant callus with bruising ?Sin clear urine Neurological : Alert & oriented x3, No focal deficit DS: Data Data Completed and Pending Labs on day of discharge: Laboratory Results - last 24 hr 03/05/21 03/09/21 03/09/21 10:45 13:58 16:16 Creatinine Estim Creat Clear Calc Estimated GFR POC Glucose 115 161 H Hepatitis A IgM Ab Nonreactive Hep B Core IgM Ab NON-REACTIVE 03/09/21 03/10/21 03/10/21 19:57 05:49 07:21 Creatinine 1.29 Estim Creat Clear Calc 61.8 Estimated GFR 58 POC Glucose 155 H 88 Hepatitis A IgM Ab Hep B Core IgM Ab 03/10/21 11:19 Creatinine Estim Creat Clear Calc Estimated GFR POC Glucose 280 H Hepatitis A IgM Ab Hep B Core IgM Ab Preliminary micro results at discharge 03/06/21 10:18 Blood Culture - Preliminary Blood - Venous No growth after 48 hours. 03/06/21 10:10 Blood Culture - Preliminary Blood - Venous No growth after 48 hours. Discharge Plan Discharge Patient Disposition: Home Health Service Discharge Diagnosis: om Referrals: [facility] [Outside] - 1 Week Shell Lopez MD [Primary Care Provider] - 1 Week Angie Wade MD [Physician] - 1 Week Discharge Medications: New ceftriaxone 1 gram Recon Soln 1 g IV Q24H Qty: 0 0RF Rx Instructions: april 16, 2021 Continued tamsulosin 0.4 mg capsule 0.4 mg PO BEDTIME 30 Days Qty: 90 0RF omeprazole 20 mg capsule,delayed release(DR/EC) 1 cap PO DAILY 0RF insulin asp prt-insulin aspart [Novolog Mix 70-30FlexPen U-100] 100 unit/mL (70-30) insulin pen 56 unit subcut DAILY 0RF Genvoya [phone] mg tablet 1 tab PO DAILY 0RF (DME) pen needle, diabetic [BD Viv 2nd Gen Pen Needle] 32 gauge x 5/32 needle See Rx Instructions ea .ROUTE .MEDSUPPLY Qty: 50 0RF Rx Instructions: As directed pravastatin 40 mg tablet 40 mg PO BEDTIME 0RF lithium carbonate 300 mg tablet 900 mg PO DAILY 0RF propranolol 20 mg tablet 20 mg PO DAILY 0RF risperidone 3 mg tablet 6 mg PO BEDTIME 0RF Cerovite Senior Tablet 1 tab PO DAILY 0RF docusate sodium 100 mg capsule 100 mg PO BID 0RF benztropine 2 mg tablet 2 mg PO BID 0RF gabapentin 100 mg capsule 200 mg PO TID 0RF insulin asp prt-insulin aspart [Novolog Mix 70-30FlexPen U-100] 100 unit/mL (70-30) insulin pen 46 unit subcut BEDTIME 0RF finasteride 5 mg tablet 5 mg PO DAILY 90 Days Qty: 90 1RF Discharge Orders: Discharge Order (Routine); Ordered 03/10/21 Ordered By: Drake Arnold Diet: advance to usual diet Activity on Discharge: As tolerated Stand Alone Forms: Patient Portal Discharge page Care Plan Goals: recovery Health Concerns: om Plan of Treatment: 6 weeks ceftriaxone, end april 16 Assessment: see above
--- NOTE | 2021-03-10 11:36 | W.MHC.F2F ---
Service Date Service Date: 03/10/21 Encounter Date of encounter: 03/10/21 Reasons for Services Signs and symptoms assessed: weakness Reason for care home: medication management, medication treatment and teach disease management Homebound: Leaving the home is medically contraindicated at this time without the asist of a device and/or another person due th the listed conditions above and below. Reason homebound: weakness related to hospital stay Certification: Based on the above findings, I certify that this patient is confined to the home and needs intermittent care home care, physical therapy and/or speech therapy, or continues to need occupational therapy. The patient is under my care, and I have initiated the establishment of the plan of care. The patient will be followed by a physician who will periodically review the plan of care.
[2021-03-10] MEDS: Insulin Lispro 100 UNIT/ML 3 ML VIAL SUBCUT (12:01)
[2021-03-10] MEDS: cefTRIAXone sodium 1 GM in 0.9 % Sodium Chloride 50 ML IV (12:45)
--- NOTE | 2021-03-10 15:52 | MHC.CM.PN ---
POST DISCHARGE NOTE WOUND CARE VISIT SCHEDULED FOR MONDAY MARCH 15, 2021 @ 0236 APPOINTMENT MADE PER [facility] REQUEST ([phone])
== END 2021-03-10 14:59 | disposition home health service (06) | DRG 720 ==
LOC: HO.ED 01:58 → HO.EDOVER 05:00 → HO.S3 14:45
PROVIDERS: Hospitalist; Student in an Organized Health Care Education/Training Program; Admitting Provider Internal Medicine; Emergency Provider Emergency Medicine; PCP Pediatrics; Visit Provider Internal Medicine
DX: A40.1 Sepsis due to streptococcus, group B (principal); R65.20 Severe sepsis without septic shock; E87.2 Acidosis; N17.9 Acute kidney failure, unspecified; E11.621 Type 2 diabetes mellitus with foot ulcer; L97.529 Non-pressure chronic ulcer of other part of left foot with unspecified severity; E11.65 Type 2 diabetes mellitus with hyperglycemia; E11.69 Type 2 diabetes mellitus with other specified complication; M86.9 Osteomyelitis, unspecified; L97.519 Non-pressure chronic ulcer of other part of right foot with unspecified severity; N40.0 Benign prostatic hyperplasia without lower urinary tract symptoms; Z21 Asymptomatic human immunodeficiency virus [HIV] infection status; Z20.822 Contact with and (suspected) exposure to COVID-19; Z87.440 Personal history of urinary (tract) infections; Z79.4 Long term (current) use of insulin; Z88.6 Allergy status to analgesic agent; Z79.899 Other long term (current) drug therapy
CPT/HCPCS: 36415; 36573; 70450; 71045; 73720; 74176; 80048; 80076; 80178; 80202; 81001; 82565; 82947; 83605; 83735; 84484; 85025; 85027; 85610; 85652; 86140; 86704; 86705; 86706; 86709; 86803; 87040; 87147; 87186; 87205; 87340; 87635; 93005; 96361; 96365; 96375; 99285; A9585; C1751; J0692; J0696; J1650; J2405; J2543; J3370

== ENCOUNTER 2021-03-15 12:34 | Outpatient (RCR) | payer MEDICAID, SELFPAY | END 2021-11-04 11:11 | disposition home or self-care (01) | LOC: HO.WCC 12:34 | PROVIDERS: PCP Pediatrics; Visit Provider Physician Assistant | DX: E11.621 Type 2 diabetes mellitus with foot ulcer (principal); L97.512 Non-pressure chronic ulcer of other part of right foot with fat layer exposed; L97.522 Non-pressure chronic ulcer of other part of left foot with fat layer exposed; L84 Corns and callosities; E11.40 Type 2 diabetes mellitus with diabetic neuropathy, unspecified; E11.649 Type 2 diabetes mellitus with hypoglycemia without coma; F17.210 Nicotine dependence, cigarettes, uncomplicated; Z79.4 Long term (current) use of insulin | CPT/HCPCS: 11042; 11043; 11055; 15275; 87071; 87073; 87147; 87205; 97597; 99212; 99213; Q4187 ==

== ENCOUNTER 2021-03-16 14:50 | Outpatient (REF) | payer MEDICAID, SELFPAY ==
[2021-03-16 14:56] LABS: MANUAL DIFF FLAG NO
[2021-03-16 15:04] LABS: Basophils Absolute Auto 0.1 X10*3/uL (0.0-0.2); Basophils Percent Auto 0.3 % (0-2); Eosinophils Absolute Auto 0.2 X10*3/uL (0.0-0.4); Eosinophils Percent Auto 1.4 % (0-4); Hematocrit 36.6 % (42.0-52.0); Hemoglobin 12.2 g/dl (14.0-18.0); Imm Gran Abs Auto 0.16 X10*3/uL (0.00-0.03); Imm Gran Pct Auto 1.1 % (0.0-0.4); Lymphocytes Absolute Auto 1.8 X10*3/uL (1.2-4.9); Mean Corpuscular HGB Conc 33.3 g/dl (31.0-36.0); Mean Corpuscular Volume 90.1 fL (80.0-98.0); Mean Platelet Volume 12.4 fL (9.4-12.4); Monocytes Absolute Auto 0.8 X10*3/uL (0.1-1.2); Monocytes Percent Auto 5.7 % (2-11); Neutrophils Absolute Auto 11.6 x10*3/uL (2.0-8.3); Neutrophils Percent Auto 79.5 % (45-73); Platelet Count 233 X10*3/uL (160-400); Red Blood Count 4.06 X10*6/uL (4.60-5.80); Red Cell Distribution Width 12.2 % (11.0-16.0); White Blood Count 14.6 X10*3/uL (4.8-10.8)
[2021-03-16 15:28] LABS: Anion Gap 12 (12-20); Blood Urea Nitrogen 15 mg/dL (9-16); Calcium 9.4 mg/dL (8.4-10.2); Carbon Dioxide 26 mmol/L (22-29); Chloride 104 mmol/L (96-108); Estimated Glomerular Filt Rate > 60; Glucose Random 158 mg/dL (60-115); Potassium 4.2 mmol/L (3.3-5.1); Sodium 138 mmol/L (135-145)
[2021-03-16 15:40] LABS: Erythrocyte Sedimentation Rate 74 MM/HR (0-15)
== END 2021-03-16 14:51 | disposition home or self-care (01) ==
LOC: HO.HVNA 14:50
PROVIDERS: Visit Provider Internal Medicine
DX: A40.1 Sepsis due to streptococcus, group B (principal)
CPT/HCPCS: 36415; 80048; 85025; 85652

== ENCOUNTER 2021-03-23 11:50 | Outpatient (REF) | payer MEDICAID, SELFPAY ==
[2021-03-23 11:58] LABS: MANUAL DIFF FLAG NO
[2021-03-23 12:04] LABS: Basophils Absolute Auto 0.1 X10*3/uL (0.0-0.2); Basophils Percent Auto 0.6 % (0-2); Eosinophils Absolute Auto 0.2 X10*3/uL (0.0-0.4); Eosinophils Percent Auto 1.9 % (0-4); Hematocrit 35.9 % (42.0-52.0); Hemoglobin 12.1 g/dl (14.0-18.0); Imm Gran Abs Auto 0.08 X10*3/uL (0.00-0.03); Imm Gran Pct Auto 0.7 % (0.0-0.4); Lymphocytes Absolute Auto 1.8 X10*3/uL (1.2-4.9); Lymphocytes Percent Auto 16.1 % (20-40); Mean Corpuscular HGB Conc 33.7 g/dl (31.0-36.0); Mean Corpuscular Hemoglobin 30.5 pg (27.0-33.0); Mean Corpuscular Volume 90.4 fL (80.0-98.0); Mean Platelet Volume 11.7 fL (9.4-12.4); Monocytes Absolute Auto 1.1 X10*3/uL (0.1-1.2); Monocytes Percent Auto 10.4 % (2-11); Neutrophils Absolute Auto 7.6 x10*3/uL (2.0-8.3); Neutrophils Percent Auto 70.3 % (45-73); Platelet Count 171 X10*3/uL (160-400); Red Blood Count 3.97 X10*6/uL (4.60-5.80); Red Cell Distribution Width 12.3 % (11.0-16.0); White Blood Count 10.9 X10*3/uL (4.8-10.8)
[2021-03-23 12:26] LABS: Anion Gap 10 (12-20); Blood Urea Nitrogen 17 mg/dL (9-16); Calcium 9.7 mg/dL (8.4-10.2); Carbon Dioxide 27 mmol/L (22-29); Chloride 106 mmol/L (96-108); Estimated Glomerular Filt Rate 59; Glucose Random 61 mg/dL (60-115); Potassium 4.1 mmol/L (3.3-5.1); Sodium 139 mmol/L (135-145)
[2021-03-23 12:51] LABS: Erythrocyte Sedimentation Rate 46 MM/HR (0-15)
== END 2021-03-23 11:51 | disposition home or self-care (01) ==
LOC: HO.HVNA 11:50
PROVIDERS: Visit Provider Internal Medicine
DX: E11.621 Type 2 diabetes mellitus with foot ulcer (principal); M86.9 Osteomyelitis, unspecified; Z79.2 Long term (current) use of antibiotics
CPT/HCPCS: 36415; 80048; 85025; 85652

== ENCOUNTER 2021-03-30 12:23 | Outpatient (REF) | payer MEDICAID, SELFPAY ==
[2021-03-30 12:27] LABS: MANUAL DIFF FLAG NO
[2021-03-30 12:30] LABS: Basophils Absolute Auto 0.1 X10*3/uL (0.0-0.2); Basophils Percent Auto 0.4 % (0-2); Eosinophils Absolute Auto 0.4 X10*3/uL (0.0-0.4); Eosinophils Percent Auto 3.3 % (0-4); Hematocrit 36.5 % (42.0-52.0); Hemoglobin 12.4 g/dl (14.0-18.0); Imm Gran Abs Auto 0.08 X10*3/uL (0.00-0.03); Imm Gran Pct Auto 0.7 % (0.0-0.4); Lymphocytes Absolute Auto 1.7 X10*3/uL (1.2-4.9); Lymphocytes Percent Auto 14.2 % (20-40); Mean Corpuscular Hemoglobin 30.2 pg (27.0-33.0); Mean Platelet Volume 11.8 fL (9.4-12.4); Monocytes Absolute Auto 0.9 X10*3/uL (0.1-1.2); Monocytes Percent Auto 7.7 % (2-11); Neutrophils Absolute Auto 8.6 x10*3/uL (2.0-8.3); Neutrophils Percent Auto 73.7 % (45-73); Platelet Count 149 X10*3/uL (160-400); Red Cell Distribution Width 12.7 % (11.0-16.0); White Blood Count 11.7 X10*3/uL (4.8-10.8)
[2021-03-30 13:17] LABS: Anion Gap 14 (12-20); Blood Urea Nitrogen 15 mg/dL (9-16); Calcium 9.7 mg/dL (8.4-10.2); Carbon Dioxide 23 mmol/L (22-29); Chloride 105 mmol/L (96-108); Estimated Glomerular Filt Rate > 60; Glucose Random 105 mg/dL (60-115); Potassium 3.8 mmol/L (3.3-5.1); Sodium 138 mmol/L (135-145)
[2021-03-30 14:07] LABS: Erythrocyte Sedimentation Rate 53 MM/HR (0-15)
== END 2021-03-30 12:24 | disposition home or self-care (01) ==
LOC: HO.HVNA 12:23
PROVIDERS: Visit Provider Internal Medicine
DX: M86.9 Osteomyelitis, unspecified (principal); Z79.2 Long term (current) use of antibiotics
CPT/HCPCS: 36415; 80048; 85025; 85652

== ENCOUNTER 2021-04-06 13:52 | Outpatient (REF) | payer MEDICAID, SELFPAY ==
[2021-04-06 13:56] LABS: MANUAL DIFF FLAG NO
[2021-04-06 14:00] LABS: Basophils Percent Auto 0.4 % (0-2); Eosinophils Absolute Auto 0.3 X10*3/uL (0.0-0.4); Hematocrit 36.9 % (42.0-52.0); Hemoglobin 12.5 g/dl (14.0-18.0); Imm Gran Abs Auto 0.05 X10*3/uL (0.00-0.03); Imm Gran Pct Auto 0.5 % (0.0-0.4); Lymphocytes Absolute Auto 1.8 X10*3/uL (1.2-4.9); Lymphocytes Percent Auto 17.6 % (20-40); Mean Corpuscular HGB Conc 33.9 g/dl (31.0-36.0); Mean Corpuscular Hemoglobin 30.5 pg (27.0-33.0); Mean Platelet Volume 11.9 fL (9.4-12.4); Monocytes Absolute Auto 0.9 X10*3/uL (0.1-1.2); Monocytes Percent Auto 8.6 % (2-11); Neutrophils Percent Auto 69.9 % (45-73); Platelet Count 154 X10*3/uL (160-400); Red Cell Distribution Width 12.6 % (11.0-16.0)
[2021-04-06 15:05] LABS: Erythrocyte Sedimentation Rate 48 MM/HR (0-15)
[2021-04-06 15:07] LABS: Anion Gap 10 (12-20); Blood Urea Nitrogen 18 mg/dL (9-16); Calcium 9.5 mg/dL (8.4-10.2); Carbon Dioxide 24 mmol/L (22-29); Chloride 107 mmol/L (96-108); Estimated Glomerular Filt Rate > 60; Glucose Random 151 mg/dL (60-115); Sodium 137 mmol/L (135-145)
== END 2021-04-06 13:53 | disposition home or self-care (01) ==
LOC: HO.HVNA 13:52
PROVIDERS: Visit Provider Internal Medicine
DX: M86.9 Osteomyelitis, unspecified (principal); B95.1 Streptococcus, group B, as the cause of diseases classified elsewhere; Z79.2 Long term (current) use of antibiotics
CPT/HCPCS: 36415; 80048; 85025; 85652

== ENCOUNTER 2021-04-13 14:44 | Outpatient (REF) | payer MEDICAID, SELFPAY ==
[2021-04-13 14:50] LABS: MANUAL DIFF FLAG NO
[2021-04-13 15:00] LABS: Basophils Percent Auto 0.4 % (0-2); Eosinophils Absolute Auto 0.2 X10*3/uL (0.0-0.4); Eosinophils Percent Auto 3.3 % (0-4); Hemoglobin 18.7 g/dl (14.0-18.0); Imm Gran Abs Auto 0.02 X10*3/uL (0.00-0.03); Imm Gran Pct Auto 0.4 % (0.0-0.4); Lymphocytes Absolute Auto 0.7 X10*3/uL (1.2-4.9); Lymphocytes Percent Auto 13.9 % (20-40); Mean Corpuscular HGB Conc 33.6 g/dl (31.0-36.0); Mean Corpuscular Hemoglobin 29.7 pg (27.0-33.0); Mean Corpuscular Volume 88.4 fL (80.0-98.0); Mean Platelet Volume 11.4 fL (9.4-12.4); Monocytes Absolute Auto 0.3 X10*3/uL (0.1-1.2); Monocytes Percent Auto 6.1 % (2-11); Neutrophils Absolute Auto 3.9 x10*3/uL (2.0-8.3); Neutrophils Percent Auto 75.9 % (45-73); Red Blood Count 6.29 X10*6/uL (4.60-5.80); Red Cell Distribution Width 12.7 % (11.0-16.0); White Blood Count 5.1 X10*3/uL (4.8-10.8)
[2021-04-13 15:06] LABS: Hematocrit 55.6 % (42.0-52.0); Platelet Count 79 X10*3/uL (160-400)
[2021-04-13 15:19] LABS: Anion Gap 13 (12-20); Blood Urea Nitrogen 22 mg/dL (9-16); Calcium 9.6 mg/dL (8.4-10.2); Carbon Dioxide 26 mmol/L (22-29); Chloride 105 mmol/L (96-108); Estimated Glomerular Filt Rate > 60; Glucose Random 118 mg/dL (60-115); Potassium 3.6 mmol/L (3.3-5.1); Sodium 140 mmol/L (135-145)
[2021-04-13 15:40] LABS: Erythrocyte Sedimentation Rate 25 MM/HR (0-15)
== END 2021-04-13 14:45 | disposition home or self-care (01) ==
LOC: HO.HVNA 14:44
PROVIDERS: Visit Provider Internal Medicine
DX: M86.9 Osteomyelitis, unspecified (principal); L97.519 Non-pressure chronic ulcer of other part of right foot with unspecified severity; B95.1 Streptococcus, group B, as the cause of diseases classified elsewhere
CPT/HCPCS: 36415; 80048; 85025; 85652

== ENCOUNTER → 2021-05-07 10:43 | Outpatient (BNVA) | payer MEDICAID, SELFPAY | PROVIDERS: Visit Provider Internal Medicine | DX: M86.9 Osteomyelitis, unspecified (principal); B95.1 Streptococcus, group B, as the cause of diseases classified elsewhere; B20 Human immunodeficiency virus [HIV] disease; A41.9 Sepsis, unspecified organism; S91.301D Unspecified open wound, right foot, subsequent encounter; S91.302D Unspecified open wound, left foot, subsequent encounter | CPT/HCPCS: 99212 ==

== ENCOUNTER 2021-06-15 12:01 | Inpatient (IN) | payer MEDICAID, SELFPAY ==
[2021-06-15] VITALS (8 sets, daily range): BP systolic 102–133; BP diastolic 44–86; PULSE 70–116; RESP 10–20; TEMP 36.6–39.4; O2SAT 95–99; BMI 24.1
--- NOTE | ~2021-06-15 | CT_ITS ---
CT head/brain wo con CLINICAL INFORMATION: Reason for Exam ? fall, confused COMPARISON: No prior CT scan available for comparison. TECHNIQUE: Department standard protocol. This CT examination was performed using dose optimization techniques as appropriate, variously including the following: *Automated exposure control *Adjustment of mA and/or kV according to patient size (this includes techniques or standardized protocols for targeted exams where dose is matched to indication/reason for exam; i.e. extremities or head) *Use of iterative reconstruction technique DLP: 694 mGy-cm FINDINGS: CEREBRAL HEMISPHERES: There is no evidence of intra-axial or extra-axial mass, hemorrhage or acute infarct. BRAIN PARENCHYMA: Normal clemons-white matter differentiation. SUBDURAL SPACE: No bleed. BASAL GANGLIA AND PINEAL GLAND: Small focal density suggesting age-indeterminate lacunar infarct left basal ganglia. VENTRICLES: Symmetric and normal in size. CEREBELLUM AND BRAINSTEM: No space-occupying mass, hemorrhage or acute infarct. CEREBELLOPONTINE ANGLES: No lesion found. ORBITS: No intraorbital mass. VESSELS: Unremarkable SKULL BASE: Unremarkable INCLUDED SINUSES AT SKULL BASE: Clear SKULL AND SKIN: No fracture or bone lesion found. CT/CT head/brain wo con IMPRESSION: No intracranial bleed. No CT evidence of acute traumatic brain injury. No skull fracture. Normal CT scan does not rule out the possibility of hyperacute infarct in the first 12 hours. If patient symptoms persist may consider correlation with MRI, which is more sensitive for early acute infarct.
--- NOTE | ~2021-06-15 | XR_ITS ---
EXAMINATION: XR FOOT, LEFT CLINICAL INFORMATION: Left foot pain, rule out osteomyelitis. COMPARISON: Left foot MRI dated 03/08/2021. TECHNIQUE: AP, lateral, and oblique views of the left foot. FINDINGS: A soft tissue wound with bandages is seen adjacent to the fifth metatarsophalangeal joint laterally. There is a possible small concave defect along the proximal/plantar aspect of the proximal phalanx laterally. The joint spaces are unremarkable. The remainder the digits are intact. The tarsal bones are normally aligned. Moderate to large plantar and retrocalcaneal spurs are seen. The soft tissues are unremarkable. XR/XR foot LT min 3V IMPRESSION: 1. Soft tissue wound and bandages adjacent to the fifth metatarsophalangeal joint. There is a possible tiny cortical defect automated proximal aspect of the proximal phalanx. Known abnormality in the distal metatarsal head on the previous MRI is not as well-visualized radiographically. 2. Prominent calcaneal spurs as detailed above.
--- NOTE | ~2021-06-15 | XR_ITS ---
EXAMINATION: XR CHEST CLINICAL INFORMATION: Fever. COMPARISON: 02/25/2021 chest radiograph. TECHNIQUE: Frontal view of the chest was obtained. FINDINGS: No significant abnormality is noted involving the heart, lungs, mediastinum, bony thorax or soft tissues. XR/XR chest 1V IMPRESSION: No acute cardiopulmonary process.
--- NOTE | ~2021-06-15 | XR_ITS ---
EXAMINATION: XR FOOT, RIGHT CLINICAL INFORMATION: Rule out osteomyelitis COMPARISON: None TECHNIQUE: AP, lateral, and oblique views of the right foot. FINDINGS: Bone alignment is normal. No fracture or dislocation is seen. There is mild arthritis at the first MTP joint with joint space narrowing and small osteophytes. There are erosive changes of the medial first metatarsal head and adjacent soft tissue swelling. Inflammatory arthritis and septic arthritis should be considered. There is joint space narrowing and small erosions of the medial cuneiform at the first MTT joint. Joint spaces are otherwise normal. There are large calcaneal spurs. XR/XR foot RT min 3V IMPRESSION: Arthritis at the first MTP joint. Small erosions in the medial first metatarsal head and adjacent soft tissue swelling. Differential would include inflammatory and infectious arthritis. There is also mild arthritis and erosive changes at the medial first MTT joint.
--- NOTE | ~2021-06-15 | US_ITS ---
EXAMINATION: NONINVASIVE ASSESSMENT OF THE ARTERIES OF BOTH LOWER EXTREMITIES INCLUDING PVR EXAM AND BILATERAL LOWER EXTREMITY DUPLEX CLINICAL INFORMATION: Nonhealing ulcer COMPARISON: None TECHNIQUE: Ankle pulse volume recordings, ankle pressure measurements and ankle brachial indices were obtained of the lower extremity arterial system bilaterally in addition to duplex Doppler techniques with wave form analysis and measurement of velocities in the common femoral, profunda femoral, superficial femoral, popliteal, tibial and peroneal arteries. The study was performed only at rest. FINDINGS: RIGHT LEG 1. Right Ankle-Brachial Index: 0.96 (higher of the DP/PT) >0.97-1.25 = normal - no significant arterial disease 0.75-0.96 = mild peripheral arterial disease 0.5-0.74 = moderate peripheral arterial disease <0.50 = severe peripheral arterial disease <0.30 = critical arterial disease 2. Segmental Pressures (mmHg): Brachial: 113 Ankle: PT 109, DP 74 3. PVR Waveforms: Ankle: Normal 4. Direct Duplex: Common femoral artery: 69.9 cm/s, Multiphasic Profunda femoris artery: 50.1 cm/s, Multiphasic Superficial femoral artery (proximal): 75.4 cm/s, Multiphasic Superficial femoral artery (mid): 104 cm/s, Multiphasic Superficial femoral artery (distal): 81.7 cm/s, Multiphasic Popliteal artery: 96.2 cm/s, Multiphasic Posterior tibial artery: 42.4 cm/s, Multiphasic Peroneal artery: 107 cm/s, monophasic LEFT LE. Left Ankle-Brachial Index: 0.88 (higher of the DP/PT) >0.97-1.25 = normal - no significant arterial disease 0.75-0.96 = mild peripheral arterial disease 0.5-0.74 = moderate peripheral arterial disease <0.50 = severe peripheral arterial disease <0.30 = critical arterial disease 2. Segmental Pressures: Brachial: 111 Ankle: PT 83, DP 99 3. PVR Waveforms: Ankle: Irregular 4. Direct Duplex: Common femoral artery: 67.6 cm/s, Multiphasic Profunda femoris artery: 76.2 cm/s, Multiphasic Superficial femoral artery (proximal): 81.5 cm/s, Multiphasic Superficial femoral artery (mid): 87.9 cm/s, Multiphasic. There is a collateral vessel at the level of the mid superficial femoral artery. Superficial femoral artery (distal): 97.9 cm/s, there is monophasic flow on at least 2 of the visualized waveforms and diastolic flow reversal on one waveform. Popliteal artery: 57.7 cm/s, monophasic Posterior tibial artery: 20 cm/s, monophasic Peroneal artery: 73.1 cm/s, monophasic US/US arterial duplex LE BI IMPRESSION: KADI on the right is 0.96 and PVR waveform is unremarkable. There is no evidence of inflow disease. There is a monophasic waveform at the level of the peroneal artery which may suggest distal disease at this level. KADI on the left is 0.88. PVR waveform is irregular and difficult to interpret. There is no definite evidence of inflow disease. There is loss of phasicity at the popliteal artery and beyond suggesting popliteal and distal disease.
[2021-06-15] MEDS: SODIUM CHLORIDE 2160 ML IV (13:12)
[2021-06-15] MEDS: Ibuprofen 400 MG TABLET PO (13:20)
[2021-06-15] MEDS: cefTRIAXone sodium 1 GM in 0.9 % Sodium Chloride 50 ML IV (13:28)
[2021-06-15 13:37] LABS: Basophils Percent Auto 0.2 % (0-2); Eosinophils Percent Auto 0.2 % (0-4); Hematocrit 37.4 % (42.0-52.0); Hemoglobin 12.8 g/dl (14.0-18.0); Imm Gran Abs Auto 0.06 X10*3/uL (0.00-0.03); Imm Gran Pct Auto 0.5 % (0.0-0.4); Lymphocytes Absolute Auto 0.3 X10*3/uL (1.2-4.9); Lymphocytes Percent Auto 2.1 % (20-40); MANUAL DIFF FLAG SCAN; Mean Corpuscular HGB Conc 34.2 g/dl (31.0-36.0); Mean Corpuscular Hemoglobin 30.5 pg (27.0-33.0); Mean Platelet Volume 10.9 fL (9.4-12.4); Monocytes Absolute Auto 0.5 X10*3/uL (0.1-1.2); Monocytes Percent Auto 3.9 % (2-11); Neutrophils Absolute Auto 12.4 x10*3/uL (2.0-8.3); Neutrophils Percent Auto 93.1 % (45-73); Platelet Count 119 X10*3/uL (160-400); Red Cell Distribution Width 12.6 % (11.0-16.0); SCAN SMEAR FLAG 1; White Blood Count 13.3 X10*3/uL (4.8-10.8)
[2021-06-15 13:50] LABS: Lactic Acid 1.8 mmol/L (0.5-2.0)
[2021-06-15 13:59] LABS: INTERNATIONAL NORM RATIO 1.1 (0.9-1.1); Prothrombin Time 12.3 SEC (9.9-13.0)
[2021-06-15 14:00] LABS: COVID-19 Test Negative (Negative); IDNOW Serial# 9DB6401D; Influenza A Negative (Negative); Influenza B2 Negative (Negative); Troponin-I High Sensitivity 5.3 ng/L (<3.5-35.0)
--- NOTE | 2021-06-15 14:02 | ED_ITS ---
HPI - General Adult General Chief complaint: Fall Stated complaint: FOOT INFECTION FROM [facility] Time Seen by Provider: 06/15/21 12:54 Source: patient and EMS Mode of arrival: EMS History of Present Illness HPI narrative: 55-year-old male with a past medical history of BPH, hepatitis, HIV, group B strep bacteremia with presumed feet osteomyelitis ( finished course of IV antibiotics on 04/16/2021), presenting from group for bilateral foot wounds and fever. Patient is poor historian, does report fall at unknown time due to legs giving out, denies head trauma or LOC. denies chills, CP/ SOB, abdominal pain Onset (ago): day(s) Related Data Home Medications Medication Instructions Recorded Confirmed benztropine 2 mg tablet 2 mg PO BID 02/16/21 06/15/21 docusate sodium 100 mg capsule 100 mg PO BID 02/16/21 06/15/21 elviteg 150 mg-cob 150 mg-emtricit 1 tab PO DAILY 02/16/21 06/15/21 200 mg-tenofo alafenam 10 mg tablet (Genvoya) insulin aspar prot-insulin aspart 46 unit SUBCUT BEDTIME 02/16/21 06/15/21 100 unit/mL (70-30) subcutaneous pen (Novolog Mix 70-30FlexPen U-100) lithium carbonate 300 mg tablet 900 mg PO DAILY 02/16/21 06/15/21 pnfqmrndrwyf-xrfgryoq-ambonj 1 tab PO DAILY 02/16/21 06/15/21 tablet (Cerovite Senior) pen needle, diabetic 32 gauge x #50 ea 02/16/21 03/05/21/32 (BD Viv 2nd Gen Pen Needle) pravastatin 40 mg tablet 40 mg PO BEDTIME 02/16/21 06/15/21 propranolol 20 mg tablet 20 mg PO DAILY 02/16/21 06/15/21 risperidone 3 mg tablet 6 mg PO BEDTIME 02/16/21 06/15/21 insulin aspar prot-insulin aspart 56 unit SUBCUT DAILY 03/05/21 06/15/21 100 unit/mL (70-30) subcutaneous pen (Novolog Mix 70-30FlexPen U-100) omeprazole 20 mg capsule,delayed 1 cap PO DAILY 03/05/21 06/15/21 release naproxen 500 mg tablet 1 tab PO BID 06/15/21 06/15/21 pregabalin 75 mg capsule 1 cap PO BID 06/15/21 06/15/21 valbenazine 40 mg capsule 40 mg PO DAILY 06/15/21 06/15/21 (Alexis) Previous Rx's Medication Instructions Recorded finasteride 5 mg tablet 5 mg PO DAILY 90 Days #90 tab 02/16/21 tamsulosin 0.4 mg capsule 0.4 mg PO BEDTIME 30 Days #90 cap 04/06/21 penicillin V potassium 250 mg 250 mg PO BID 30 Days #60 tab 05/07/21 tablet Allergies Allergy/AdvReac Type Severity Reaction Status Date / Time acetaminophen [From TYLENOL] Allergy Unknown UNKNOWN Verified 05/07/21 10:50 aspirin [ASA] Allergy Unknown AGITATION Verified 05/07/21 10:50 trazodone [TRAZODONE] AdvReac Unknown HYPER Verified 05/07/21 10:50 Review of Systems Review of Systems: ROS limited secondary to patient's acute mental status Yes all other systems are reviewed and are negative [facility] Past Medical History Attestation statement: The following information was validated with the patient. Medical History BPH w urinary obs/LUTS Chronic prostatitis Erectile dysfunction due to arterial insufficiency Hepatitis HIV (human immunodeficiency virus infection) Urinary hesitancy Surgical History No pertinent past surgical history Family History Family History Father No problems noted. Mother No problems noted. Social History Social History Household Members: Other Housing: Other Do you presently have visiting nurse or other home services: Yes Patient Tobacco Use Status: Tobacco use Unknown Advance Directives: No Advance Directives Information Provided: No service: No Current occupational status: unemployed Physical Exam ED Vital Signs: Vital Signs - 24 hr 06/15/21 12:39 06/15/21 13:52 06/15/21 13:59 Temperature 102.9 F H 101.8 F H Pulse Rate 108 H 104 H 109 H Respiratory Rate 20 18 18 Blood Pressure 133/73 128/68 125/65 Pulse Oximetry 96 98 96 BMI result Body Mass Index 24.1 Const General: cooperative, healthy appearing and no acute distress Orientation/consciousness: oriented to person and oriented to place Limitations: no limitations HENMT Head: Yes normal to inspection and Yes atraumatic Ears: hearing grossly normal bilaterally General nose exam: Normal external nose present Face and sinus: Yes normal facial exam Eyes General: appearance normal, both eyes and all related structures EOM: EOMs intact bilaterally Neck Neck: Yes normal visual inspection and Yes no meningeal signs Resp Effort & Inspection: normal respiratory effort and no respiratory distress Auscultation: clear to auscultation bilaterally, no rales, no rhonchi and no wheezes Cardio Rate: regular rate Heart sounds: S1 normal heart sound present and S2 normal heart sound present GI Inspection: Yes normal to inspection Palpation (GI): Soft to palpation, nontender, no guarding and not rigid Skin Rashes: no rashes Wounds: no wounds Neuro General: oriented to person, oriented to place, tone normal, moves all extremities and no meningeal signs Extrem Other: please refer to images above. + malodor. No appreciable drainage. No appreciable erythema or surrounding cellulitis. +Deeper wound to right foot medial aspect Course Course Course Narrative: -[id number]-- leukocytosis of 13.3. Lactic acid negative. Labs otherwise unremarkable. COVID-[address] head/brain wo con IMPRESSION: No intracranial bleed. No CT evidence of acute traumatic brain injury. No skull fracture. ? Normal CT scan does not rule out the possibility of hyperacute infarct in the first 12 hours. If patient symptoms persist may consider correlation with MRI, which is more sensitive for early acute infarct. XR foot RT min 3V IMPRESSION: Arthritis at the first MTP joint. Small erosions in the medial first metatarsal head and adjacent soft tissue swelling. Differential would include inflammatory and infectious arthritis. There is also mild arthritis and erosive changes at the medial first MTT joint. XR foot LT min 3V IMPRESSION: 1. Soft tissue wound and bandages adjacent to the fifth metatarsophalangeal joint. There is a possible tiny cortical defect automated proximal aspect of the proximal phalanx. Known abnormality in the distal metatarsal head on the previous MRI is not as well-visualized radiographically. 2. Prominent calcaneal spurs as detailed above. XR chest 1V IMPRESSION: No acute cardiopulmonary process. > plan to admit for further management Medical Decision Making [facility] Narrative Medical decision making narrative: 55-year-old male with a past medical history of BPH, hepatitis, HIV, group B strep bacteremia with presumed feet osteomyelitis ( finished course of IV antibiotics on 04/16/2021), presenting from [facility] for bilateral foot wounds and fever. on exam febrile 102.9, tachycardic likely from fever, A&O x2, bilateral feet with malodor, please refer to image. Concern for osteomyelitis vs other metabolic/ infectious etiology. Lower concern for ICH without reported head trauma. Plan: Labs, UA, x-rays, CT, IVF, IV antibiotics, re-evaluate Medical Records Medical records reviewed: Yes I reviewed the patient's medical records. Lab Data Lab results reviewed: Yes I reviewed the patient's lab results. Result diagrams: 06/15/21 13:27 06/15/21 13:27 Labs: Lab Results 06/15/21 06/15/21 06/15/21 Range/Units 13:27 13:27 13:27 WBC 13.3 H (4.8-10.8) X10*3/uL RBC 4.20 L D (4.60-5.80) X10*6/uL Hgb 12.8 L D (14.0-18.0) g/dl Hct 37.4 L D (42.0-52.0) % MCV 89.0 (80.0-98.0) fL MCH 30.5 (27.0-33.0) pg MCHC 34.2 (31.0-36.0) g/dl RDW 12.6 (11.0-16.0) % Plt Count 119 L D (160-400) X10*3/uL MPV 10.9 (9.4-12.4) fL Immature Gran % (Auto) 0.5 H (0.0-0.4) % Neut % (Auto) 93.1 H (45-73) % Lymph % (Auto) 2.1 L (20-40) % Placer % (Auto) 3.9 (2-11) % Eos % (Auto) 0.2 (0-4) % Baso % (Auto) 0.2 (0-2) % Lymph # (Auto) 0.3 L (1.2-4.9) X10*3/uL Placer # (Auto) 0.5 (0.1-1.2) X10*3/uL Eos # (Auto) 0.0 (0.0-0.4) X10*3/uL Baso # (Auto) 0.0 (0.0-0.2) X10*3/uL Abs Immat Gran (auto) 0.06 H (0.00-0.03) X10*3/uL Absolute Neuts (auto) 12.4 H (2.0-8.3) x10*3/uL Absolute Nucleated RBC 0.000 (0.0-0.012) X10*3/uL Nucleated RBC % (auto) 0.0 (0.0-0.2) /100WBC Smear Tech's Comments VERIFIED PT (9.9-13.0) SEC INR (0.9-1.1) Sodium 138 (135-145) mmol/L Potassium 4.2 (3.3-5.1) mmol/L Chloride 107 (96-108) mmol/L Carbon Dioxide 22 (22-29) mmol/L Anion Gap 13 (12-20) BUN 15 (9-16) mg/dL Creatinine 1.17 (0.5-1.4) mg/dL Estim Creat Clear Calc 68.2 Estimated GFR > 60 Random Glucose 173 H D (60-115) mg/dL Lactic Acid 1.8 (0.5-2.0) mmol/L Calcium 9.7 (8.4-10.2) mg/dL Magnesium 1.7 (1.6-2.6) mg/dL Total Bilirubin 0.6 (0.0-1.0) mg/dL AST 19 D (5-37) U/L ALT 25 (0-40) U/L Alkaline Phosphatase 85 (39-117) U/L Troponin I High Sens (<3.5-35.0) ng/L Total Protein 6.9 D (6.5-8.0) g/dL Albumin 4.1 D (3.5-5.0) g/dL COVID-19 (BETHANY) (Negative) COVID-19 Clin Com Influenza Type A (MARCO) (Negative) Influenza Type B (MARCO) (Negative) Influenza A & B Note 06/15/21 06/15/21 06/15/21 Range/Units 13:27 13:27 13:27 WBC (4.8-10.8) X10*3/uL RBC (4.60-5.80) X10*6/uL Hgb (14.0-18.0) g/dl Hct (42.0-52.0) % MCV (80.0-98.0) fL MCH (27.0-33.0) pg MCHC (31.0-36.0) g/dl RDW (11.0-16.0) % Plt Count (160-400) X10*3/uL MPV (9.4-12.4) fL Immature Gran % (Auto) (0.0-0.4) % Neut % (Auto) (45-73) % Lymph % (Auto) (20-40) % Placer % (Auto) (2-11) % Eos % (Auto) (0-4) % Baso % (Auto) (0-2) % Lymph # (Auto) (1.2-4.9) X10*3/uL Placer # (Auto) (0.1-1.2) X10*3/uL Eos # (Auto) (0.0-0.4) X10*3/uL Baso # (Auto) (0.0-0.2) X10*3/uL Abs Immat Gran (auto) (0.00-0.03) X10*3/uL Absolute Neuts (auto) (2.0-8.3) x10*3/uL Absolute Nucleated RBC (0.0-0.012) X10*3/uL Nucleated RBC % (auto) (0.0-0.2) /100WBC Smear Tech's Comments PT (9.9-13.0) SEC INR (0.9-1.1) Sodium (135-145) mmol/L Potassium (3.3-5.1) mmol/L Chloride (96-108) mmol/L Carbon Dioxide (22-29) mmol/L Anion Gap (12-20) BUN (9-16) mg/dL Creatinine (0.5-1.4) mg/dL Estim Creat Clear Calc Estimated GFR Random Glucose (60-115) mg/dL Lactic Acid (0.5-2.0) mmol/L Calcium (8.4-10.2) mg/dL Magnesium (1.6-2.6) mg/dL Total Bilirubin (0.0-1.0) mg/dL AST (5-37) U/L ALT (0-40) U/L Alkaline Phosphatase (39-117) U/L Troponin I High Sens 5.3 D (<3.5-35.0) ng/L Total Protein (6.5-8.0) g/dL Albumin (3.5-5.0) g/dL COVID-19 (BETHANY) Negative (Negative) COVID-19 Clin Com See Note Influenza Type A (MARCO) Negative (Negative) Influenza Type B (MARCO) Negative (Negative) Influenza A & B Note See Note 06/15/21 Range/Units 13:28 WBC (4.8-10.8) X10*3/uL RBC (4.60-5.80) X10*6/uL Hgb (14.0-18.0) g/dl Hct (42.0-52.0) % MCV (80.0-98.0) fL MCH (27.0-33.0) pg MCHC (31.0-36.0) g/dl RDW (11.0-16.0) % Plt Count (160-400) X10*3/uL MPV (9.4-12.4) fL Immature Gran % (Auto) (0.0-0.4) % Neut % (Auto) (45-73) % Lymph % (Auto) (20-40) % Placer % (Auto) (2-11) % Eos % (Auto) (0-4) % Baso % (Auto) (0-2) % Lymph # (Auto) (1.2-4.9) X10*3/uL Placer # (Auto) (0.1-1.2) X10*3/uL Eos # (Auto) (0.0-0.4) X10*3/uL Baso # (Auto) (0.0-0.2) X10*3/uL Abs Immat Gran (auto) (0.00-0.03) X10*3/uL Absolute Neuts (auto) (2.0-8.3) x10*3/uL Absolute Nucleated RBC (0.0-0.012) X10*3/uL Nucleated RBC % (auto) (0.0-0.2) /100WBC Smear Tech's Comments PT 12.3 (9.9-13.0) SEC INR 1.1 (0.9-1.1) Sodium (135-145) mmol/L Potassium (3.3-5.1) mmol/L Chloride (96-108) mmol/L Carbon Dioxide (22-29) mmol/L Anion Gap (12-20) BUN (9-16) mg/dL Creatinine (0.5-1.4) mg/dL Estim Creat Clear Calc Estimated GFR Random Glucose (60-115) mg/dL Lactic Acid (0.5-2.0) mmol/L Calcium (8.4-10.2) mg/dL Magnesium (1.6-2.6) mg/dL Total Bilirubin (0.0-1.0) mg/dL AST (5-37) U/L ALT (0-40) U/L Alkaline Phosphatase (39-117) U/L Troponin I High Sens (<3.5-35.0) ng/L Total Protein (6.5-8.0) g/dL Albumin (3.5-5.0) g/dL COVID-19 (BETHANY) (Negative) COVID-19 Clin Com Influenza Type A (MARCO) (Negative) Influenza Type B (MARCO) (Negative) Influenza A & B Note Discharge Plan Discharge Clinical Impression: Sepsis, Infectious arthritis Patient Disposition: Admitted As Inpatient Prescriptions: No Action tamsulosin 0.4 mg capsule 0.4 mg PO BEDTIME 30 Days Qty: 90 3RF omeprazole 20 mg capsule,delayed release(DR/EC) 1 cap PO DAILY 0RF insulin asp prt-insulin aspart [Novolog Mix 70-30FlexPen U-100] 100 unit/mL (70-30) insulin pen 56 unit subcut DAILY 0RF naproxen 500 mg tablet 1 tab PO BID 0RF pregabalin 75 mg capsule 1 cap PO BID 0RF Ingrezza 40 mg Capsule 40 mg PO DAILY 0RF Genvoya [phone] mg tablet 1 tab PO DAILY 0RF (DME) pen needle, diabetic [BD Viv 2nd Gen Pen Needle] 32 gauge x 5/32 needle See Rx Instructions ea .ROUTE .MEDSUPPLY Qty: 50 0RF Rx Instructions: As directed pravastatin 40 mg tablet 40 mg PO BEDTIME 0RF lithium carbonate 300 mg tablet 900 mg PO DAILY 0RF propranolol 20 mg tablet 20 mg PO DAILY 0RF risperidone 3 mg tablet 6 mg PO BEDTIME 0RF Cerovite Senior Tablet 1 tab PO DAILY 0RF docusate sodium 100 mg capsule 100 mg PO BID 0RF benztropine 2 mg tablet 2 mg PO BID 0RF insulin asp prt-insulin aspart [Novolog Mix 70-30FlexPen U-100] 100 unit/mL (70-30) insulin pen 46 unit subcut BEDTIME 0RF finasteride 5 mg tablet 5 mg PO DAILY 90 Days Qty: 90 1RF penicillin V potassium 250 mg tablet 250 mg PO BID 30 Days Qty: 60 1RF
[2021-06-15 14:06] LABS: Alanine Aminotransferase 25 U/L (0-40); Albumin Level 4.1 g/dL (3.5-5.0); Alkaline Phosphatase 85 U/L (39-117); Anion Gap 13 (12-20); Aspartate Amino Transferase 19 U/L (5-37); Bilirubin Total 0.6 mg/dL (0.0-1.0); Blood Urea Nitrogen 15 mg/dL (9-16); Calcium 9.7 mg/dL (8.4-10.2); Carbon Dioxide 22 mmol/L (22-29); Chloride 107 mmol/L (96-108); Creatinine Clr Calc Pharmacy 68.2; Estimated Glomerular Filt Rate > 60; Glucose Random 173 mg/dL (60-115); Magnesium 1.7 mg/dL (1.6-2.6); Potassium 4.2 mmol/L (3.3-5.1); Sodium 138 mmol/L (135-145); Total Protein 6.9 g/dL (6.5-8.0)
[2021-06-15 14:17] LABS: SLIDE REVIEW VERIFIED
--- NOTE | 2021-06-15 14:22 | PHA.MEDREC ---
Pharmacy Consult ? Medication Reconciliation Pharmacy has completed the medication reconciliation. Patient from correction with medication list. List matches claim history. Ingrezza is filled at the [facility] specilality pharmacy , and they confirmed the medications was shipped. Agustina Hayes, DanteD
--- NOTE | 2021-06-15 15:11 | PC.NURSE ---
pt has been in imaging unable to start second abx
[2021-06-15] MEDS: vancomycin HCL 750 MG in 0.9 % Sodium Chloride 250 ML 265 MG IV (15:16)
--- NOTE | 2021-06-15 15:17 | PC.NURSE ---
correction to listed triage- pt came in from nursing home. NO FALL. pt was sent for bilateral foot wounds and fever possible sepsis.
--- NOTE | 2021-06-15 18:06 | PC.NURSE ---
pt refusing vitals
--- NOTE | 2021-06-15 18:40 | PC.NURSE ---
patient refused to be straight catheterized-patient reports he will inform ED staff when he has urge to urinate and will void into urinal.
[2021-06-15 19:10] LABS: Appearance Urine CLEAR; Color Urine YELLOW; Glucose Urine UA NEG (NEG); Leukocyte Esterase Urine NEG (NEG); Nitrite Urine NEG (NEG); Specific Gravity - Urine <= 1.005 (1.005-1.025); Urine Blood NEG (NEG); Urine Ketones NEG (NEG); Urine Protein NEG (NEG-TRACE)
--- NOTE | 2021-06-15 19:43 | PM.IMHP ---
History of Present Illness Date of Service: 06/15/21 Chief Complaint: Bilateral foot ulcers 55-year-old male with a past medical history of HIV, BPH, erectile dysfunction, hepatitis, history of group B strep bacteremia, history of foot osteomyelitis-finished course of antibiotics in April 2021; [facility] from the [facility] with a chief complaint of bilateral foot wounds and fever; Patient is a poor historian. Most of the history obtained from the records and ER staff. Reportedly patient has been having worsening foot ulcers; developed fever at the [facility]. Patient denies any chest pain or palpitations. Denies any nausea vomiting diarrhea. Denies any urinary symptoms. Patient reports that he has been following with the wound doctor as outpatient; Review of all other systems is negative except mentioned above ER course: Per ER team patient noted to have bilateral foot wounds concerning for cellulitis as well as osteomyelitis; x-ray showed findings concerning for infectious arthritis. Patient was given antibiotics. Admitted to the hospital for further management. [facility] Medical History BPH w urinary obs/LUTS Chronic prostatitis Erectile dysfunction due to arterial insufficiency Hepatitis HIV (human immunodeficiency virus infection) Urinary hesitancy Family History Father No problems noted. Mother No problems noted. Surgical History No pertinent past surgical history Social History Household Members: Other Housing: Other Do you presently have visiting nurse or other home services: Yes Patient Tobacco Use Status: Tobacco use Unknown Advance Directives: No Advance Directives Information Provided: No service: No Current occupational status: unemployed Meds Allergies Allergy/AdvReac Type Severity Reaction Status Date / Time acetaminophen [From TYLENOL] Allergy Unknown UNKNOWN Verified 05/07/21 10:50 aspirin [ASA] Allergy Unknown AGITATION Verified 05/07/21 10:50 trazodone [TRAZODONE] AdvReac Unknown HYPER Verified 05/07/21 10:50 Active Medications: Current Medications Dextrose (Dextrose 50 % 25 Gm/50 Ml Syringe) 25 gm IVPUSH Q15M PRN; Protocol PRN Reason: per Hypoglycemia Standing Ord. Docusate Sodium (Docusate Sodium 100 Mg Capsule) 100 mg PO BID [facility] Finasteride (Finasteride 5 Mg Tablet) 5 mg PO DAILY [facility] Glucose (Glucose Gel 15 Gm Gel..Gram.) 15 gm PO Q15M PRN; Protocol PRN Reason: per Hypoglycemia Standing Ord. Insulin Glargine (Insulin Glargine,Hum.Rec.Anlog 100 Unit/Ml 10 Ml Vial) 30 unit SUBCUT BID [facility] Insulin Human Lispro (Insulin Lispro 100 Unit/Ml 3 Ml Vial) 0 unit SUBCUT QIDACHS [facility]; Protocol [place] Carbonate (D[place]ham Carbonate 300 Mg Capsule) 900 mg PO DAILY [facility] Multivitamins/Vitamin C (Multivitamin Tablet) 1 tab PO DAILY [facility] Non-Formulary Medication (Benztropine) 2 mg PO BID [facility] Non-Formulary Medication (Xprhmdq-Fkg-Wkhsg-Tenof Alafen [Genvoya]) 1 tab PO DAILY [facility] Non-Formulary Medication (Valbenazine [Ingrezza]) 40 mg PO DAILY [facility] Omeprazole (Omeprazole 20 Mg Capsule.) 20 mg PO DAILY [facility] Pharmacy Consult (Consult Rx Perform Med Rec) 1 each MISCELLANE ONCE PRN PRN Reason: Consult order Pravastatin Sodium (Pravastatin Sodium 40 Mg Tablet) 40 mg PO BEDTIME [facility] Pregabalin (Pregabalin 75 Mg Capsule) 75 mg PO BID [facility] Propranolol HCl (Propranolol Hcl 20 Mg Tablet) 20 mg PO DAILY [facility]; Protocol Risperidone (Risperidone 3 Mg Tablet) 6 mg PO BEDTIME [facility] Tamsulosin HCl (Tamsulosin Hcl 0.4 Mg Capsule) 0.4 mg PO BEDTIME [facility] Home Medications Medication Instructions Recorded Confirmed Last Taken Type benztropine 2 mg tablet 2 mg PO BID 02/16/21 06/15/21 Unknown History docusate sodium 100 mg capsule 100 mg PO BID 02/16/21 06/15/21 Unknown History elviteg 150 mg-cob 150 mg-emtricit 1 tab PO DAILY 02/16/21 06/15/21 Unknown History 200 mg-tenofo alafenam 10 mg tablet (Genvoya) insulin aspar prot-insulin aspart 46 unit SUBCUT BEDTIME 02/16/21 06/15/21 Unknown History 100 unit/mL (70-30) subcutaneous pen (Novolog Mix 70-30FlexPen U-100) lithium carbonate 300 mg tablet 900 mg PO DAILY 02/16/21 06/15/21 Unknown History zsihbclvsera-yctrbnsb-zqbewk 1 tab PO DAILY 02/16/21 06/15/21 Unknown History tablet (Cerovite Senior) pen needle, diabetic 32 gauge x #50 ea 02/16/21 03/05/21 Unknown History (BD Viv 2nd Gen Pen Needle) pravastatin 40 mg tablet 40 mg PO BEDTIME 02/16/21 06/15/21 Unknown History propranolol 20 mg tablet 20 mg PO DAILY 02/16/21 06/15/21 Unknown History risperidone 3 mg tablet 6 mg PO BEDTIME 02/16/21 06/15/21 Unknown History insulin aspar prot-insulin aspart 56 unit SUBCUT DAILY 03/05/21 06/15/21 Unknown History 100 unit/mL (70-30) subcutaneous pen (Novolog Mix 70-30FlexPen U-100) omeprazole 20 mg capsule,delayed 1 cap PO DAILY 03/05/21 06/15/21 Unknown History release naproxen 500 mg tablet 1 tab PO BID 06/15/21 06/15/21 Unknown History pregabalin 75 mg capsule 1 cap PO BID 06/15/21 06/15/21 Unknown History valbenazine 40 mg capsule 40 mg PO DAILY 06/15/21 06/15/21 Unknown History (Ingrezza) Physical Exam Vital Signs and Narrative: Vital Signs: Last Vital Signs Temp 98.9 F 06/15/21 18:30 Pulse 78 06/15/21 18:30 Resp 20 06/15/21 18:30 BP 105/59 L 06/15/21 18:30 Pulse Ox 96 06/15/21 18:30 BMI result Body Mass Index 24.1 Gen: Appears be in no acute distress HEENT: NCAT, Moist mucosa. Pulmonary: Vesicular breath sounds, fair air entry CVS: Normal S1-S2 Abdomen: BS+, Soft, Nontender Extremities: Warm well perfused Neuro: Alert and awake. Results Labs CBC and Chem 7: 06/15/21 13:27 06/15/21 13:27 Labs: Laboratory Results - last 24 hr 06/15/21 06/15/21 06/15/21 13:27 13:27 13:27 MCV 89.0 MCH 30.5 MCHC 34.2 RDW 12.6 Plt Count 119 L D MPV 10.9 Immature Gran % (Auto) 0.5 H Neut % (Auto) 93.1 H Lymph % (Auto) 2.1 L Butler % (Auto) 3.9 Eos % (Auto) 0.2 Baso % (Auto) 0.2 Lymph # (Auto) 0.3 L Butler # (Auto) 0.5 Eos # (Auto) 0.0 Baso # (Auto) 0.0 Abs Immat Gran (auto) 0.06 H Absolute Neuts (auto) 12.4 H Absolute Nucleated RBC 0.000 Nucleated RBC % (auto) 0.0 Smear Tech's Comments VERIFIED PT INR Anion Gap 13 Estim Creat Clear Calc 68.2 Estimated GFR > 60 Random Glucose 173 H D Lactic Acid 1.8 Calcium 9.7 Magnesium 1.7 Total Bilirubin 0.6 AST 19 D ALT 25 Alkaline Phosphatase 85 Troponin I High Sens Total Protein 6.9 D Albumin 4.1 D Urine Color Urine Appearance Urine pH Ur Specific [place] Urine Protein Urine Glucose (UA) Urine Ketones Urine Blood Urine Nitrite Ur Leukocyte Esterase COVID-19 (BETHANY) [id number] Clin Com Influenza Type A (MARCO) Influenza Type B (MARCO) Influenza A & B Note 06/15/21 06/15/21 06/15/21 13:27 13:27 13:27 MCV MCH MCHC RDW Plt Count MPV Immature Gran % (Auto) Neut % (Auto) Lymph % (Auto) Butler % (Auto) Eos % (Auto) Baso % (Auto) Lymph # (Auto) Butler # (Auto) Eos # (Auto) Baso # (Auto) Abs Immat Gran (auto) Absolute Neuts (auto) Absolute Nucleated RBC Nucleated RBC % (auto) Smear Tech's Comments PT INR Anion Gap Estim Creat Clear Calc Estimated GFR Random Glucose Lactic Acid Calcium Magnesium Total Bilirubin AST ALT Alkaline Phosphatase Troponin I High Sens 5.3 D Total Protein Albumin Urine Color Urine Appearance Urine pH Ur Specific [place] Urine Protein Urine Glucose (UA) Urine Ketones Urine Blood Urine Nitrite Ur Leukocyte Esterase COVID-19 (BETHANY) Negative COVID-Cloneless Com See Note Influenza Type A (MARCO) Negative Influenza Type B (MARCO) Negative Influenza A & B Note See Note 06/15/21 06/15/21 13:28 19:02 MCV MCH MCHC RDW Plt Count MPV Immature Gran % (Auto) Neut % (Auto) Lymph % (Auto) Butler % (Auto) Eos % (Auto) Baso % (Auto) Lymph # (Auto) Butler # (Auto) Eos # (Auto) Baso # (Auto) Abs Immat Gran (auto) Absolute Neuts (auto) Absolute Nucleated RBC Nucleated RBC % (auto) Smear Tech's Comments PT 12.3 INR 1.1 Anion Gap Estim Creat Clear Calc Estimated GFR Random Glucose Lactic Acid Calcium Magnesium Total Bilirubin AST ALT Alkaline Phosphatase Troponin I High Sens Total Protein Albumin Urine Color YELLOW Urine Appearance CLEAR Urine pH 6.0 Ur Specific [place] <= 1.005 Urine Protein NEG Urine Glucose (UA) NEG Urine Ketones NEG Urine Blood NEG Urine Nitrite NEG Ur Leukocyte Esterase NEG COVID-19 (BETHANY) COVID-19 Clin Com Influenza Type A (MARCO) Influenza Type B (MARCO) Influenza A & B Note Imaging Radiologist's Impressions: Impressions Chest X-Ray 06/15/21 14:50 IMPRESSION: No acute cardiopulmonary process. Foot X-Ray 06/15/21 14:50 IMPRESSION: 1. Soft tissue wound and bandages adjacent to the fifth metatarsophalangeal joint. There is a possible tiny cortical defect automated proximal aspect of the proximal phalanx. Known abnormality in the distal metatarsal head on the previous MRI is not as well-visualized radiographically. 2. Prominent calcaneal spurs as detailed above. Foot X-Ray 06/15/21 14:50 IMPRESSION: Arthritis at the first MTP joint. Small erosions in the medial first metatarsal head and adjacent soft tissue swelling. Differential would include inflammatory and infectious arthritis. There is also mild arthritis and erosive changes at the medial first MTT joint. Head CT 06/15/21 15:15 IMPRESSION: No intracranial bleed. No CT evidence of acute traumatic brain injury. No skull fracture. Normal CT scan does not rule out the possibility of hyperacute infarct in the first 12 hours. If patient symptoms persist may consider correlation with MRI, which is more sensitive for early acute infarct. Assessment and Plan Plan 55-year-old male with a past medical history of HIV, BPH, erectile dysfunction, hepatitis, history of group B strep bacteremia, history of foot osteomyelitis-finished course of antibiotics in April 2021; [facility] with a chief complaint of bilateral foot wounds and fever; Bilateral foot ulcer/cellulitis: Continue IV vancomycin and Zosyn Id consult Foot x-ray showed arthritis of the 1st MTP joint-concern for infectious versus inflammatory arthritis. Also noted erosive changes on the medial 1st MTP joint General surgery consult History of HIV: Continue home medications History of mood disorder: Continue lithium, risperidone, propranolol, benztropine. History of BPH: Continue home Flomax DVT prophylaxis: Subcu heparin Code status: Full code Quality Stroke Does the patient have a stroke diagnosis?: No VTE Prior VTE?: No VTE Risk Level:: Medical - moderate - high VTE Device Contraindication: Treatment Not Indicated VTE Drug Contraindication: N/A - Med Ordered
[2021-06-15] MEDS: risperiDONE 3 MG TABLET 6 MG PO (21:07)
[2021-06-15] MEDS: Pregabalin 75 MG CAPSULE PO (21:07)
[2021-06-15] MEDS: Pravastatin Sodium 40 MG TABLET PO (21:07)
[2021-06-15] MEDS: Docusate Sodium 100 MG CAPSULE PO (21:08)
[2021-06-15] MEDS: Heparin Sodium,Porcine 5,000 UNIT/ML VIAL 5000 UNIT SUBCUT (21:11)
[2021-06-15 21:14] LABS: Glucose, Whole Blood 144 mg/dL (60-115)
[2021-06-15] MEDS: Insulin Glargine,Hum.rec.anlog 100 UNIT/ML 10 ML VIAL 30 UNIT SUBCUT (21:14)
--- NOTE | 2021-06-15 21:28 | PC.NURSE ---
pharmacy called and Alexis and Lamine are not availble and asking pt to supply his own med.
[2021-06-15] MEDS: 0.9 % Sodium Chloride 1,000 ML 50 ML IVCONT (21:31)
[2021-06-15] MEDS: Tamsulosin HCL 0.4 MG CAPSULE PO (22:52)
[2021-06-16 00:29] VITALS: BP 114/56; PULSE 70; RESP 14; TEMP 36.8; O2SAT 99
[2021-06-16 00:56] LABS: Glucose, Whole Blood 130 mg/dL (60-115)
[2021-06-16] MEDS: Heparin Sodium,Porcine 5,000 UNIT/ML VIAL 5000 UNIT SUBCUT ×2 (03:18→13:53)
[2021-06-16] MEDS: Piperacillin Sodium/Tazobactam 3.375 GM in 0.9 % Sodium Chloride 50 ML IV ×4 (03:18→19:46)
[2021-06-16] MEDS: vancomycin HCL 1,000 MG in 0.9 % Sodium Chloride 250 ML 270 MG IV (03:20)
[2021-06-16 03:22] VITALS: BP 105/58; PULSE 80; RESP 16; O2SAT 98
[2021-06-16 03:59] VITALS: BP 107/48; PULSE 75; RESP 14; O2SAT 98
[2021-06-16 07:23] LABS: Glucose, Whole Blood 130 mg/dL (60-115)
[2021-06-16 07:23] LABS: MANUAL DIFF FLAG NO
[2021-06-16 07:28] LABS: Basophils Percent Auto 0.2 % (0-2); Eosinophils Absolute Auto 0.1 X10*3/uL (0.0-0.4); Eosinophils Percent Auto 0.5 % (0-4); Hematocrit 35.2 % (42.0-52.0); Hemoglobin 11.7 g/dl (14.0-18.0); Imm Gran Abs Auto 0.06 X10*3/uL (0.00-0.03); Imm Gran Pct Auto 0.5 % (0.0-0.4); Lymphocytes Absolute Auto 0.6 X10*3/uL (1.2-4.9); Mean Corpuscular HGB Conc 33.2 g/dl (31.0-36.0); Mean Corpuscular Hemoglobin 30.2 pg (27.0-33.0); Mean Corpuscular Volume 90.7 fL (80.0-98.0); Mean Platelet Volume 11.4 fL (9.4-12.4); Monocytes Absolute Auto 1.1 X10*3/uL (0.1-1.2); Neutrophils Absolute Auto 9.3 x10*3/uL (2.0-8.3); Neutrophils Percent Auto 83.8 % (45-73); Red Blood Count 3.88 X10*6/uL (4.60-5.80); Red Cell Distribution Width 12.8 % (11.0-16.0); White Blood Count 11.1 X10*3/uL (4.8-10.8)
[2021-06-16 07:32] LABS: Platelet Count 87 X10*3/uL (160-400)
[2021-06-16 07:53] LABS: Anion Gap 10 (12-20); Blood Urea Nitrogen 15 mg/dL (9-16); Calcium 8.8 mg/dL (8.4-10.2); Carbon Dioxide 21 mmol/L (22-29); Chloride 112 mmol/L (96-108); Creatinine Clr Calc Pharmacy 81.4; Estimated Glomerular Filt Rate > 60; Glucose Random 134 mg/dL (60-115); Potassium 3.9 mmol/L (3.3-5.1); Sodium 139 mmol/L (135-145)
[2021-06-16 08:00] VITALS: BP 124/62; PULSE 84; RESP 18; TEMP 37.3; O2SAT 98
[2021-06-16 08:18] LABS: Glucose, Whole Blood 253 mg/dL (60-115)
[2021-06-16] MEDS: Pregabalin 75 MG CAPSULE PO ×2 (08:51→20:34)
[2021-06-16] MEDS: Multivitamin TABLET 1 TAB PO (08:51)
[2021-06-16] MEDS: Benztropine Mesylate 1 MG TABLET 2 MG PO ×2 (08:51→20:34)
[2021-06-16] MEDS: Docusate Sodium 100 MG CAPSULE PO ×2 (08:51→20:34)
[2021-06-16] MEDS: Omeprazole 20 MG CAPSULE.DR PO (08:51)
[2021-06-16] MEDS: Finasteride 5 MG TABLET PO (08:51)
--- NOTE | 2021-06-16 08:55 | HE.PHANOTE ---
Spoke with group burner machine Mati Rouse. He said someone can bring in his Ingrezza and Genvoya later today when staff is at the facility. Agustina Hayes, PharmD
[2021-06-16] MEDS: Insulin Glargine,Hum.rec.anlog 100 UNIT/ML 10 ML VIAL 30 UNIT SUBCUT ×2 (09:25→21:03)
[2021-06-16] MEDS: Propranolol HCL 20 MG TABLET PO (09:26)
[2021-06-16] MEDS: Lithium Carbonate 300 MG CAPSULE 900 MG PO (09:26)
--- NOTE | 2021-06-16 10:51 | P.CONGS_ITS ---
History of Present Illness Consult details Consult date: 06/16/21 Narrative: ?55-year-old male with a past medical history of bilateral foot ulcers and osteomyelitis, previously treated with prolonged IV antibiotics completed in April 2021. He now presents to the ED with a fever noted in his halfway. He is a poor historian with a history of HIV, group B strep bacteremia, and BPH. Surgical consultation was requested for management of the bilateral foot wounds. He denies any pain in the feet. Review of Systems Review of Systems: Yes all other systems are reviewed and are negative Constitutional: Constitutional: Denies chills, Reports fever(s), Denies headache(s) and Denies poor appetite ENT: Denies dizziness and Denies headache(s) Cardiovascular: Cardiovascular: Denies chest pain, Denies rapid heart rate, Denies palpitations and Denies slow heart rate Respiratory: Respiratory: Denies chest congestion, Denies cough, Denies pain on inspiration and Denies wheezing Gastrointestinal: Gastrointestinal: Denies abdominal pain, Denies bloating, Denies change in stool character, Denies constipation, Denies diarrhea, Denies nausea, Denies vomiting and Denies hematemesis Musculoskeletal: Musculoskeletal: Denies back pain, Denies arthralgias, Denies joint swelling and Denies numbness Integumentary/Breasts: Skin/Breast: Reports as per HPI, Denies change in pigmentation, Denies erythema, Denies rash, Reports skin ulcer and Reports sores Neurologic: Denies dizziness, Denies headache(s) and Denies numbness Psychiatric: Psychiatric: Denies anxiety and Denies depression Endocrine: Endocrine: Denies palpitations Hematologic/Lymphatic: Hematologic/Lymphatic: Denies easy bleeding, Denies easy bruising and Denies lymphadenopathy Allergic/Immunologic: Allergic/Immunologic: Denies wheezing PMFSH Past Medical History Medical History BPH w urinary obs/LUTS Chronic prostatitis Erectile dysfunction due to arterial insufficiency Hepatitis HIV (human immunodeficiency virus infection) Urinary hesitancy Family History Family History Father No problems noted. Mother No problems noted. Surgical History Surgical History No pertinent past surgical history Social History Social History Household Members: Other Housing: Other Do you presently have visiting nurse or other home services: Yes Patient Tobacco Use Status: Tobacco use Unknown Advance Directives: No Advance Directives Information Provided: No service: No Current occupational status: unemployed Meds Allergies Allergy/AdvReac Type Severity Reaction Status Date / Time acetaminophen [From TYLENOL] Allergy Unknown UNKNOWN Verified 05/07/21 10:50 aspirin [ASA] Allergy Unknown AGITATION Verified 05/07/21 10:50 trazodone [TRAZODONE] AdvReac Unknown HYPER Verified 05/07/21 10:50 Active Medications: Current Medications Benztropine Mesylate (Benztropine Mesylate 1 Mg Tablet) 2 mg PO BID [facility] Last Admin: 06/16/21 08:51 Dose: 2 mg Documented by: Dextrose (Dextrose 50 % 25 Gm/50 Ml Syringe) 25 gm IVPUSH Q15M PRN; Protocol PRN Reason: per Hypoglycemia Standing Ord. Docusate Sodium (Docusate Sodium 100 Mg Capsule) 100 mg PO BID [facility] Last Admin: 06/16/21 08:51 Dose: 100 mg Documented by: Finasteride (Finasteride 5 Mg Tablet) 5 mg PO DAILY [facility] Last Admin: 06/16/21 08:51 Dose: 5 mg Documented by: Glucose (Glucose Gel 15 Gm Gel..Gram.) 15 gm PO Q15M PRN; Protocol PRN Reason: per Hypoglycemia Standing Ord. Heparin Sodium (Porcine) (Heparin Sodium,Porcine 5,000 Unit/Ml Vial) 5,000 unit SUBCUT Q8H [facility] Last Admin: 06/16/21 03:18 Dose: 5,000 unit Documented by: Sodium Chloride (Ns) 1,000 mls @ 50 mls/hr IVCONT .Q20H [facility] Last Admin: 06/15/21 21:31 Dose: 50 mls/hr Documented by: Piperacillin Sod/Tazobactam (Sod 3.375 gm/ Sodium Chloride) 50 mls @ 100 mls/hr IV Q6H [facility] Last Infusion: 06/16/21 09:50 Dose: Infused Documented by: Vancomycin HCl 750 mg/ Sodium (Chloride) 265 mls @ 265 mls/hr IV Q12H [facility] Insulin Glargine (Insulin Glargine,Hum.Rec.Anlog 100 Unit/Ml 10 Ml Vial) 30 unit SUBCUT BID [facility] Last Admin: 06/16/21 09:25 Dose: 30 unit Documented by: Insulin Human Lispro (Insulin Lispro 100 Unit/Ml 3 Ml Vial) 0 unit SUBCUT QIDA [facility]; Protocol Last Admin: 06/16/21 07:20 Dose: Not Given Documented by: [place] Carbonate ([place] Carbonate 300 Mg Capsule) 900 mg PO DAILY [facility] Last Admin: 06/16/21 09:26 Dose: 900 mg Documented by: Melatonin (Melatonin 3 Mg Tablet) 6 mg PO BEDTIME PRN PRN Reason: Insomnia Multivitamins/Vitamin C (Multivitamin Tablet) 1 tab PO DAILY [facility] Last Admin: 06/16/21 08:51 Dose: 1 tab Documented by: Non-Formulary Medication (Hlcvxnb-Tzu-Lgyth-Tenof Alafen [Genvoya]) 1 tab PO DAILY [facility] Non-Formulary Medication (Valbenazine [Ingrezza]) 40 mg PO DAILY [facility] Omeprazole (Omeprazole 20 Mg Capsule.) 20 mg PO DAILY [facility] Last Admin: 06/16/21 08:51 Dose: 20 mg Documented by: Pharmacy Consult (Consult Rx Perform Med Rec) 1 each MISCELLANE ONCE PRN PRN Reason: Consult order Pharmacy Consult (Consult Rx Vancomycin Dosing) 1 each MISCELLANE DAILY PRN PRN Reason: Consult order Pravastatin Sodium (Pravastatin Sodium 40 Mg Tablet) 40 mg PO BEDTIME [facility] Last Admin: 06/15/21 21:07 Dose: 40 mg Documented by: Pregabalin (Pregabalin 75 Mg Capsule) 75 mg PO BID [facility] Last Admin: 06/16/21 08:51 Dose: 75 mg Documented by: Propranolol HCl (Propranolol Hcl 20 Mg Tablet) 20 mg PO DAILY [facility]; Protocol Last Admin: 06/16/21 09:26 Dose: 20 mg Documented by: Risperidone (Risperidone 3 Mg Tablet) 6 mg PO BEDTIME [facility] Last Admin: 06/15/21 21:07 Dose: 6 mg Documented by: Senna (Sennosides 8.6 Mg Tablet) 17.2 mg PO BEDTIME PRN PRN Reason: Constipation Sodium Chloride (0.9 % Sodium Chloride Flush 3 Ml Syringe) 3 ml IVFLUSH QSHIFT [facility] Last Admin: 06/16/21 07:28 Dose: Not Given Documented by: Tamsulosin HCl (Tamsulosin Hcl 0.4 Mg Capsule) 0.4 mg PO BEDTIME [facility] Last Admin: 06/15/21 22:52 Dose: 0.4 mg Documented by: Home Medications Medication Instructions Recorded Confirmed Last Taken Type benztropine 2 mg tablet 2 mg PO BID 02/16/21 06/15/21 Unknown History docusate sodium 100 mg capsule 100 mg PO BID 02/16/21 06/15/21 Unknown History elviteg 150 mg-cob 150 mg-emtricit 1 tab PO DAILY 02/16/21 06/15/21 Unknown History 200 mg-tenofo alafenam 10 mg tablet (Genvoya) insulin aspar prot-insulin aspart 46 unit SUBCUT BEDTIME 02/16/21 06/15/21 Unknown History 100 unit/mL (70-30) subcutaneous pen (Novolog Mix 70-30FlexPen U-100) lithium carbonate 300 mg tablet 900 mg PO DAILY 02/16/21 06/15/21 Unknown Hist ory znnmdssfsqwi-uodvdyyh-acjzvn 1 tab PO DAILY 02/16/21 06/15/21 Unknown History tablet (Cerovite Senior) pen needle, diabetic 32 gauge x #50 ea 02/16/21 03/05/21 Unknown History (BD Viv 2nd Gen Pen Needle) pravastatin 40 mg tablet 40 mg PO BEDTIME 02/16/21 06/15/21 Unknown History propranolol 20 mg tablet 20 mg PO DAILY 02/16/21 06/15/21 Unknown History risperidone 3 mg tablet 6 mg PO BEDTIME 02/16/21 06/15/21 Unknown History insulin aspar prot-insulin aspart 56 unit SUBCUT DAILY 03/05/21 06/15/21 Unknown History 100 unit/mL (70-30) subcutaneous pen (Novolog Mix 70-30FlexPen U-100) omeprazole 20 mg capsule,delayed 1 cap PO DAILY 03/05/21 06/15/21 Unknown History release naproxen 500 mg tablet 1 tab PO BID 06/15/21 06/15/21 Unknown History pregabalin 75 mg capsule 1 cap PO BID 06/15/21 06/15/21 Unknown History valbenazine 40 mg capsule 40 mg PO DAILY 06/15/21 06/15/21 Unknown History (Alexis) Physical Exam Vital Signs: Vital Signs: Last Vital Signs Temp 99.1 F 06/16/21 08:00 Pulse 84 06/16/21 08:00 Resp 18 06/16/21 08:00 BP 124/62 06/16/21 08:00 Pulse Ox 98 06/16/21 08:00 BMI result Body Mass Index 24.1 Const: General: cooperative, comfortable and well developed Nutritional Appearance: well nourished Orientation/consciousness: patient oriented x3 HEENT: Head: Yes normocephalic and Yes atraumatic Ears: hearing grossly normal bilaterally Eyes: Sclerae: sclerae normal EOM: EOMs intact bilaterally Neck: Neck: Yes normal visual inspection Resp: Effort & Inspection: normal respiratory effort, no cough, no respiratory distress and no stridor Cardio: Jugular venous distension: no JVD GI: Inspection: Yes normal to inspection Palpation (GI): Soft to palpation, nontender, no guarding and not rigid Skin: General skin exam: dry skin Rashes: no rashes Neuro: General: patient oriented x3 and no focal motor deficits Extrem: General: Yes full ROM and Yes no clubbing, cyanosis or edema Ankle/foot/toe images: 1. Right lateral metatarsal head callus, 5th toe 2. Right medial metatarsal head callus, great toe 3. Callus dorsum, mid metatarsal, great toe 4. Callus left lateral metatarsal head, 5th toe Psych: Appearance: grossly normal Results Labs Result diagrams: 06/16/21 07:02 06/16/21 07:02 Labs: Abnormal lab results 06/15/21 06/15/21 06/15/21 Range/Units 13:27 13:27 21:03 WBC 13.3 H (4.8-10.8) X10*3/uL RBC 4.20 L D (4.60-5.80) X10*6/uL Hgb 12.8 L D (14.0-18.0) g/dl Hct 37.4 L D (42.0-52.0) % Plt Count 119 L D (160-400) X10*3/uL Immature Gran % (Auto) 0.5 H (0.0-0.4) % Neut % (Auto) 93.1 H (45-73) % Lymph % (Auto) 2.1 L (20-40) % Lymph # (Auto) 0.3 L (1.2-4.9) X10*3/uL Abs Immat Gran (auto) 0.06 H (0.00-0.03) X10*3/uL Absolute Neuts (auto) 12.4 H (2.0-8.3) x10*3/uL Chloride (96-108) mmol/L Carbon Dioxide (22-29) mmol/L Anion Gap (12-20) POC Glucose 144 H (60-115) mg/dL Random Glucose 173 H D (60-115) mg/dL 06/16/21 06/16/21 06/16/21 Range/Units 00:52 07:02 07:02 WBC 11.1 H (4.8-10.8) X10*3/uL RBC 3.88 L (4.60-5.80) X10*6/uL Hgb 11.7 L (14.0-18.0) g/dl Hct 35.2 L (42.0-52.0) % Plt Count 87 L D (160-400) X10*3/uL Immature Gran % (Auto) 0.5 H (0.0-0.4) % Neut % (Auto) 83.8 H (45-73) % Lymph % (Auto) 5.0 L (20-40) % Lymph # (Auto) 0.6 L (1.2-4.9) X10*3/uL Abs Immat Gran (auto) 0.06 H (0.00-0.03) X10*3/uL Absolute Neuts (auto) 9.3 H (2.0-8.3) x10*3/uL Chloride 112 H (96-108) mmol/L Carbon Dioxide 21 L (22-29) mmol/L Anion Gap 10 L (12-20) POC Glucose 130 H (60-115) mg/dL Random Glucose 134 H (60-115) mg/dL 06/16/21 06/16/21 Range/Units 07:19 08:15 WBC (4.8-10.8) X10*3/uL RBC (4.60-5.80) X10*6/uL Hgb (14.0-18.0) g/dl Hct (42.0-52.0) % Plt Count (160-400) X10*3/uL Immature Gran % (Auto) (0.0-0.4) % Neut % (Auto) (45-73) % Lymph % (Auto) (20-40) % Lymph # (Auto) (1.2-4.9) X10*3/uL Abs Immat Gran (auto) (0.00-0.03) X10*3/uL Absolute Neuts (auto) (2.0-8.3) x10*3/uL Chloride (96-108) mmol/L Carbon Dioxide (22-29) mmol/L Anion Gap (12-20) POC Glucose 130 H 253 H (60-115) mg/dL Random Glucose (60-115) mg/dL Short CBC 06/15/21 06/16/21 Range/Units 13:27 07:02 WBC 13.3 H 11.1 H (4.8-10.8) X10*3/uL Hgb 12.8 L D 11.7 L (14.0-18.0) g/dl Hct 37.4 L D 35.2 L (42.0-52.0) % Plt Count 119 L D 87 L D (160-400) X10*3/uL BMP 06/15/21 06/16/21 13:27 07:02 Sodium 138 139 Potassium 4.2 3.9 Chloride 107 112 H Carbon Dioxide 22 21 L BUN 15 15 Creatinine 1.17 0.98 Calcium 9.7 8.8 D Liver Function 06/15/21 Range/Units 13:27 Total Bilirubin 0.6 (0.0-1.0) mg/dL AST 19 D (5-37) U/L ALT 25 (0-40) U/L Alkaline Phosphatase 85 (39-117) U/L Albumin 4.1 D (3.5-5.0) g/dL Urine 06/15/21 Range/Units 19:02 Urine Color YELLOW Urine Appearance CLEAR Urine pH 6.0 (5.0-8.0) Ur Specific [place] <= 1.005 (1.005-1.025) Urine Protein NEG (NEG-TRACE) MG/DL Urine Glucose (UA) NEG (NEG) MG/DL All other labs normal. Assessment and Plan (1) Fever: Qualifiers: Fever type: unspecified Qualified Code(s): R50.9 - Fever, unspecified Status: Acute (2) Osteomyelitis of left foot: Status: Acute Plan 55-year-old male patient with multiple medical problems including HIV, elevated glucose, probable peripheral vascular disease presenting with bilateral thick callused feet with ulceration previous diagnosis of osteomyelitis returning for fever. Examination today reveals a very thick callus which can be debrided at the bedside. Patient has no tenderness associated with the lesions in bilateral feet is no evidence of an underlying abscess on examination to explain the fever. I will follow along during the hospitalization and make arrangements for the bedside debridement during this hospitalization. Procedures Date of Service Date of Service: 06/16/21
--- NOTE | 2021-06-16 11:42 | PHA.PROG ---
Admission Date/Time: June 15, 2021 19:40 Indication: Cellulitis Weight in k kg Adjusted body weight in K.84 kg [place] body weight in K.4 kg Obesity Dosing Indication % IBW: 105 % Serum Creatinine - Last 168 Hours 06/15/21 06/16/21 13:27 07:02 Creatinine 1.17 0.98 Estimated CrCl and GFR - Last 168 Hours 06/15/21 06/16/21 13:27 07:02 Estim Creat Clear Calc 68.2 81.4 Estimated GFR > 60 > 60 Vancomycin Loading Dose: N/A Current Vancomycin Dosing Regimen: 750 mg Q12H Date and Time for next Vancomycin Level to be drawn: 06/17 @ 1300 Pharmacist Comments on Vancomycin Plan: Vancomycin 750 mg (10.4mg/kg) given in the ED 06/15 @ 1616, a suboptimal loading dose for patient's weight. Overnight 06/16 @ 0320 patient was given a one time dose of vancomycin 1000 mg (13.8 mg/kg) 12 hours after first dose. Maitenance dose vancomycin 750 mg Q12H to start 06/16 @ 1500. Expected AUC 432 with a trough of 13.8 Pharmacy to monitor renal function daily Agustina Hayes PharmD Vancomycin dosing will take advantage of [employer] as a clinical decision support tool that uses Bayesian modeling to calculate individual patient's pharmacokinetic parameters and forecast the patient's drug concentration time course with the target goal AUC 24 range of 400 - 600 mg/L/hr.
[2021-06-16 11:44] LABS: Glucose, Whole Blood 234 mg/dL (60-115)
--- NOTE | 2021-06-16 13:26 | P.PNIM_ITS ---
Subjective Subjective Date of Service: 06/16/21 Interval History: cc: fevers interval history:feels fine Cardiovascular Cardiovascular: Reports no additional cardiovascular complaints Respiratory Respiratory: Reports no additional respiratory complaints Physical Exam Vital Signs: Vital Signs: Last Vital Signs Temp 99.1 F 06/16/21 08:00 Pulse 84 06/16/21 08:00 Resp 18 06/16/21 08:00 BP 124/62 06/16/21 08:00 Pulse Ox 98 06/16/21 08:00 BMI result Body Mass Index 24.1 General: AO X 3, no acute distress Resp: CTA bilateral, no accessory muscles used CVS: S1,S2,RRR GI: soft, non tender, non distended Neuro: motor grossly intact, alert Psych: appropriate affect, appropriate insight skin: bilateral plantar ulcers Objective Data Active Medications Benztropine Mesylate (Benztropine Mesylate 1 Mg Tablet) 2 mg PO BID [facility] Last Admin: 06/16/21 08:51 Dose: 2 mg Documented by: ARIANNA Dextrose (Dextrose 50 % 25 Gm/50 Ml Syringe) 25 gm IVPUSH Q15M PRN; Protocol PRN Reason: per Hypoglycemia Standing Ord. Docusate Sodium (Docusate Sodium 100 Mg Capsule) 100 mg PO BID [facility] Last Admin: 06/16/21 08:51 Dose: 100 mg Documented by: ARIANNA Finasteride (Finasteride 5 Mg Tablet) 5 mg PO DAILY [facility] Last Admin: 06/16/21 08:51 Dose: 5 mg Documented by: ARIANNA Glucose (Glucose Gel 15 Gm Gel..Gram.) 15 gm PO Q15M PRN; Protocol PRN Reason: per Hypoglycemia Standing Ord. Heparin Sodium (Porcine) (Heparin Sodium,Porcine 5,000 Unit/Ml Vial) 5,000 unit SUBCUT Q8H [facility] Last Admin: 06/16/21 03:18 Dose: 5,000 unit Documented by: DARNELL Sodium Chloride (Ns) 1,000 mls @ 50 mls/hr IVCONT .Q20H [facility] Last Admin: 06/15/21 21:31 Dose: 50 mls/hr Documented by: DARNELL Piperacillin Sod/Tazobactam (Sod 3.375 gm/ Sodium Chloride) 50 mls @ 100 mls/hr IV Q6H [facility] Last Infusion: 06/16/21 09:50 Dose: 0 mls/hr Documented by: ARIANNA Vancomycin HCl 750 mg/ Sodium (Chloride) 265 mls @ 265 mls/hr IV Q12H [facility] Insulin Glargine (Insulin Glargine,Hum.Rec.Anlog 100 Unit/Ml 10 Ml Vial) 30 unit SUBCUT BID [facility] Last Admin: 06/16/21 09:25 Dose: 30 unit Documented by: ARIANNA Insulin Human Lispro (Insulin Lispro 100 Unit/Ml 3 Ml Vial) 0 unit SUBCUT QIDACHS [facility]; Protocol Last Admin: 06/16/21 07:20 Dose: Not Given Documented by: COOPEB Non-Admin Reason: No Insulin Coverage [place] Carbonate ([place] Carbonate 300 Mg Capsule) 900 mg PO DAILY [facility] Last Admin: 06/16/21 09:26 Dose: 900 mg Documented by: ARIANNA Melatonin (Melatonin 3 Mg Tablet) 6 mg PO BEDTIME PRN PRN Reason: Insomnia Multivitamins/Vitamin C (Multivitamin Tablet) 1 tab PO DAILY [facility] Last Admin: 06/16/21 08:51 Dose: 1 tab Documented by: ARIANNA Non-Formulary Medication (Bavgpaf-Mdu-Vifrq-Tenof Alafen [Genvoya]) 1 tab PO DAILY [facility] Non-Formulary Medication (Valbenazine [Ingrezza]) 40 mg PO DAILY [facility] Omeprazole (Omeprazole 20 Mg Capsule.Dr) 20 mg PO DAILY [facility] Last Admin: 06/16/21 08:51 Dose: 20 mg Documented by: ARIANNA Pharmacy Consult (Consult Rx Perform Med Rec) 1 each MISCELLANE ONCE PRN PRN Reason: Consult order Pharmacy Consult (Consult Rx Vancomycin Dosing) 1 each MISCELLANE DAILY PRN PRN Reason: Consult order Pravastatin Sodium (Pravastatin Sodium 40 Mg Tablet) 40 mg PO BEDTIME [facility] Last Admin: 06/15/21 21:07 Dose: 40 mg Documented by: DARNELL Pregabalin (Pregabalin 75 Mg Capsule) 75 mg PO BID [facility] Last Admin: 06/16/21 08:51 Dose: 75 mg Documented by: ARIANNA Propranolol HCl (Propranolol Hcl 20 Mg Tablet) 20 mg PO DAILY [facility]; Protocol Last Admin: 06/16/21 09:26 Dose: 20 mg Documented by: ARIANNA Risperidone (Risperidone 3 Mg Tablet) 6 mg PO BEDTIME [facility] Last Admin: 06/15/21 21:07 Dose: 6 mg Documented by: DARNELL Senna (Sennosides 8.6 Mg Tablet) 17.2 mg PO BEDTIME PRN PRN Reason: Constipation Sodium Chloride (0.9 % Sodium Chloride Flush 3 Ml Syringe) 3 ml IVFLUSH QSHIFT [facility] Last Admin: 06/16/21 07:28 Dose: Not Given Documented by: JOSE ALBERTO Non-Admin Reason: IV Running Tamsulosin HCl (Tamsulosin Hcl 0.4 Mg Capsule) 0.4 mg PO BEDTIME [facility] Last Admin: 06/15/21 22:52 Dose: 0.4 mg Documented by: DARNELL Labs CBC & Chem 7: 06/16/21 07:02 06/16/21 07:02 Labs: Laboratory Results - last 24 hr 06/15/21 06/15/21 06/15/21 13:27 13:27 13:27 MCV 89.0 MCH 30.5 MCHC 34.2 RDW 12.6 Plt Count 119 L D MPV 10.9 Immature Gran % (Auto) 0.5 H Neut % (Auto) 93.1 H Lymph % (Auto) 2.1 L [place] % (Auto) 3.9 Eos % (Auto) 0.2 Baso % (Auto) 0.2 Lymph # (Auto) 0.3 L [place] # (Auto) 0.5 Eos # (Auto) 0.0 Baso # (Auto) 0.0 Abs Immat Gran (auto) 0.06 H Absolute Neuts (auto) 12.4 H Absolute Nucleated RBC 0.000 Nucleated RBC % (auto) 0.0 Smear Tech's Comments VERIFIED PT INR Anion Gap 13 Estim Creat Clear Calc 68.2 Estimated GFR > 60 POC Glucose Random Glucose 173 H D Lactic Acid 1.8 Calcium 9.7 Magnesium 1.7 Total Bilirubin 0.6 AST 19 D ALT 25 Alkaline Phosphatase 85 Troponin I High Sens Total Protein 6.9 D Albumin 4.1 D Urine Color Urine Appearance Urine pH Ur Specific [place] Urine Protein Urine Glucose (UA) Urine Ketones Urine Blood Urine Nitrite Ur Leukocyte Esterase COVID-19 (BETHANY) COVID-19 Clin Com Influenza Type A (MARCO) Influenza Type B (MARCO) Influenza A & B Note 06/15/21 06/15/21 06/15/21 13:27 13:27 13:27 MCV MCH MCHC RDW Plt Count MPV Immature Gran % (Auto) Neut % (Auto) Lymph % (Auto) [place] % (Auto) Eos % (Auto) Baso % (Auto) Lymph # (Auto) [place] # (Auto) Eos # (Auto) Baso # (Auto) Abs Immat Gran (auto) Absolute Neuts (auto) Absolute Nucleated RBC Nucleated RBC % (auto) Smear Tech's Comments PT INR Anion Gap Estim Creat Clear Calc Estimated GFR POC Glucose Random Glucose Lactic Acid Calcium Magnesium Total Bilirubin AST ALT Alkaline Phosphatase Troponin I High Sens 5.3 D Total Protein Albumin Urine Color Urine Appearance Urine pH Ur Specific [place] Urine Protein Urine Glucose (UA) Urine Ketones Urine Blood Urine Nitrite Ur Leukocyte Esterase COVID-19 (BETHANY) Negative COVID-19 [employer] Com See Note Influenza Type A (MARCO) Negative Influenza Type B (MARCO) Negative Influenza A & B Note See Note 06/15/21 06/15/21 06/15/21 13:28 19:02 21:03 MCV MCH MCHC RDW Plt Count MPV Immature Gran % (Auto) Neut % (Auto) Lymph % (Auto) [place] % (Auto) Eos % (Auto) Baso % (Auto) Lymph # (Auto) [place] # (Auto) Eos # (Auto) Baso # (Auto) Abs Immat Gran (auto) Absolute Neuts (auto) Absolute Nucleated RBC Nucleated RBC % (auto) Smear Tech's Comments PT 12.3 INR 1.1 Anion Gap Estim Creat Clear Calc Estimated GFR POC Glucose 144 H Random Glucose Lactic Acid Calcium Magnesium Total Bilirubin AST ALT Alkaline Phosphatase Troponin I High Sens Total Protein Albumin Urine Color YELLOW Urine Appearance CLEAR Urine pH 6.0 Ur Specific [place] <= 1.005 Urine Protein NEG Urine Glucose (UA) NEG Urine Ketones NEG Urine Blood NEG Urine Nitrite NEG Ur Leukocyte Esterase NEG COVID-19 (BETHANY) COVID-19 [employer] Com Influenza Type A (MARCO) Influenza Type B (MARCO) Influenza A & B Note 06/16/21 06/16/21 06/16/21 00:52 07:02 07:02 MCV 90.7 MCH 30.2 MCHC 33.2 RDW 12.8 Plt Count 87 L D MPV 11.4 Immature Gran % (Auto) 0.5 H Neut % (Auto) 83.8 H Lymph % (Auto) 5.0 L [place] % (Auto) 10.0 Eos % (Auto) 0.5 Baso % (Auto) 0.2 Lymph # (Auto) 0.6 L [place] # (Auto) 1.1 Eos # (Auto) 0.1 Baso # (Auto) 0.0 Abs Immat Gran (auto) 0.06 H Absolute Neuts (auto) 9.3 H Absolute Nucleated RBC 0.000 Nucleated RBC % (auto) 0.0 Smear Tech's Comments PT INR Anion Gap 10 L Estim Creat Clear Calc 81.4 Estimated GFR > 60 POC Glucose 130 H Random Glucose 134 H Lactic Acid Calcium 8.8 D Magnesium Total Bilirubin AST ALT Alkaline Phosphatase Troponin I High Sens Total Protein Albumin Urine Color Urine Appearance Urine pH Ur Specific [place] Urine Protein Urine Glucose (UA) Urine Ketones Urine Blood Urine Nitrite Ur Leukocyte Esterase COVID-19 (BETHANY) COVID-19 Clin Com Influenza Type A (MARCO) Influenza Type B (MARCO) Influenza A & B Note 06/16/21 06/16/21 06/16/21 07:19 08:15 11:41 MCV MCH MCHC RDW Plt Count MPV Immature Gran % (Auto) Neut % (Auto) Lymph % (Auto) [place] % (Auto) Eos % (Auto) Baso % (Auto) Lymph # (Auto) [place] # (Auto) Eos # (Auto) Baso # (Auto) Abs Immat Gran (auto) Absolute Neuts (auto) Absolute Nucleated RBC Nucleated RBC % (auto) Smear Tech's Comments PT INR Anion Gap Estim Creat Clear Calc Estimated GFR POC Glucose 130 H 253 H 234 H Random Glucose Lactic Acid Calcium Magnesium Total Bilirubin AST ALT Alkaline Phosphatase Troponin I High Sens Total Protein Albumin Urine Color Urine Appearance Urine pH Ur Specific [place] Urine Protein Urine Glucose (UA) Urine Ketones Urine Blood Urine Nitrite Ur Leukocyte Esterase COVID-19 (BETHANY) COVID-19 Clin Com Influenza Type A (MARCO) Influenza Type B (MARCO) Influenza A & B Note Assessment and Plan (1) Sepsis: Status: Acute Plan 55M presented with non healing foot wounds and fevers sepsis present on admission due to DFUs bilateral vanc, zosyn ID, surgery, and vascular to see montior cultures, vanc trough hiv elviteg mood disorder lithium, risperidone, benztropine bph flomax dvt prophylaxis - hep sq full code reason for continued hospitalization: iv abx, at risk for decompensating sepsis Quality Stroke Does the patient have a stroke diagnosis?: No VTE Prior VTE?: No VTE Risk Level:: Medical - moderate - high VTE Device Contraindication: Treatment Not Indicated VTE Drug Contraindication: N/A - Med Ordered
[2021-06-16 13:31] LABS: Glucose, Whole Blood 153 mg/dL (60-115)
[2021-06-16] MEDS: Insulin Lispro 100 UNIT/ML 3 ML VIAL SUBCUT ×2 (13:54→21:04)
[2021-06-16 14:34] LABS: Vancomycin Trough 9.2 mcg/mL (10.0-20.0)
--- NOTE | 2021-06-16 15:05 | PC.NURSE ---
Patient alert and oriented, mostly australian speaking. VSS. Denies pain, nausea, dizziness. Dr. Irvin in to assess bilateral foot wounds. Wounds [employer] at this time, no drainage noted. Antibiotics given per EMAR. Lung sounds diminished, + bowel sounds. Took meds whole with water. Ambulated with assistance, stand at bedside to use urinal. Per patient all needs met, has no complaints at this time.
[2021-06-16] MEDS: 0.9 % Sodium Chloride 1,000 ML 50 ML IVCONT (16:06)
--- NOTE | 2021-06-16 16:06 | P.CNID_ITS ---
History of Present Illness Data of Consult Service Date: 06/16/21 Requesting physician: Drake Arnold Primary Care Provider: Unknown Physician HPI Reason for consult: fever of unknown origin He presents with fever and reported redness bilateral feet. He has controlled HIV with good CD4 count and viral load undetectable on Genvoya He has chronic osteomyelitis with Group B strep 05/28 and Group B strep bacteremia on 03/05/2021. He was prescribed preventive PCN V 250 bid when I saw him office 05/28 but dont see it on med list. Review of Systems Review of Systems: Yes all other systems are reviewed and are negative [facility] Past Medical History Medical History BPH w urinary obs/LUTS Chronic prostatitis Erectile dysfunction due to arterial insufficiency Hepatitis HIV (human immunodeficiency virus infection) Urinary hesitancy Family History Family History Father No problems noted. Mother No problems noted. Family history: reviewed and not pertinent Surgical History Surgical History No pertinent past surgical history Social History Social History Household Members: Other Housing: Other Do you presently have visiting nurse or other home services: Yes Patient Tobacco Use Status: Tobacco use Unknown Advance Directives: No Advance Directives Information Provided: No service: No Current occupational status: unemployed Meds Allergies Allergy/AdvReac Type Severity Reaction Status Date / Time acetaminophen [From TYLENOL] Allergy Unknown UNKNOWN Verified 05/07/21 10:50 aspirin [ASA] Allergy Unknown AGITATION Verified 05/07/21 10:50 trazodone [TRAZODONE] AdvReac Unknown HYPER Verified 05/07/21 10:50 Active Medications: Current Medications Benztropine Mesylate (Benztropine Mesylate 1 Mg Tablet) 2 mg PO BID [facility] Last Admin: 06/16/21 08:51 Dose: 2 mg Documented by: Dextrose (Dextrose 50 % 25 Gm/50 Ml Syringe) 25 gm IVPUSH Q15M PRN; Protocol PRN Reason: per Hypoglycemia Standing Ord. Docusate Sodium (Docusate Sodium 100 Mg Capsule) 100 mg PO BID [facility] Last Admin: 06/16/21 08:51 Dose: 100 mg Documented by: Finasteride (Finasteride 5 Mg Tablet) 5 mg PO DAILY [facility] Last Admin: 06/16/21 08:51 Dose: 5 mg Documented by: Glucose (Glucose Gel 15 Gm Gel..Gram.) 15 gm PO Q15M PRN; Protocol PRN Reason: per Hypoglycemia Standing Ord. Heparin Sodium (Porcine) (Heparin Sodium,Porcine 5,000 Unit/Ml Vial) 5,000 unit SUBCUT Q8H [facility] Last Admin: 06/16/21 13:53 Dose: 5,000 unit Documented by: Sodium Chloride (Ns) 1,000 mls @ 50 mls/hr IVCONT .Q20H [facility] Last Admin: 06/15/21 21:31 Dose: 50 mls/hr Documented by: Piperacillin Sod/Tazobactam (Sod 3.375 gm/ Sodium Chloride) 50 mls @ 100 mls/hr IV Q6H [facility] Last Infusion: 06/16/21 15:14 Dose: Infused Documented by: Vancomycin HCl 750 mg/ Sodium (Chloride) 265 mls @ 265 mls/hr IV Q12H [facility] Insulin Glargine (Insulin Glargine,Hum.Rec.Anlog 100 Unit/Ml 10 Ml Vial) 30 unit SUBCUT BID [facility] Last Admin: 06/16/21 09:25 Dose: 30 unit Documented by: Insulin Human Lispro (Insulin Lispro 100 Unit/Ml 3 Ml Vial) 0 unit SUBCUT QIDACHS [facility]; Protocol Last Admin: 06/16/21 13:54 Dose: 2 unit Documented by: [place] Carbonate ([place] Carbonate 300 Mg Capsule) 900 mg PO DAILY [facility] Last Admin: 06/16/21 09:26 Dose: 900 mg Documented by: Melatonin (Melatonin 3 Mg Tablet) 6 mg PO BEDTIME PRN PRN Reason: Insomnia Multivitamins/Vitamin C (Multivitamin Tablet) 1 tab PO DAILY [facility] Last Admin: 06/16/21 08:51 Dose: 1 tab Documented by: Patient Own (Medication (Genvoya)) 1 each PO DAILY [facility] Patient Own Medication (Ingrezza 40 Mg) 1 each PO DAILY [facility] Omeprazole (Omeprazole 20 Mg Capsule.) 20 mg PO DAILY [facility] Last Admin: 06/16/21 08:51 Dose: 20 mg Documented by: Pharmacy Consult (Consult Rx Perform Med Rec) 1 each MISCELLANE ONCE PRN PRN Reason: Consult order Pharmacy Consult (Consult Rx Vancomycin Dosing) 1 each MISCELLANE DAILY PRN PRN Reason: Consult order Pravastatin Sodium (Pravastatin Sodium 40 Mg Tablet) 40 mg PO BEDTIME [facility] Last Admin: 06/15/21 21:07 Dose: 40 mg Documented by: Pregabalin (Pregabalin 75 Mg Capsule) 75 mg PO BID [facility] Last Admin: 06/16/21 08:51 Dose: 75 mg Documented by: Propranolol HCl (Propranolol Hcl 20 Mg Tablet) 20 mg PO DAILY [facility]; Protocol Last Admin: 06/16/21 09:26 Dose: 20 mg Documented by: Risperidone (Risperidone 3 Mg Tablet) 6 mg PO BEDTIME [facility] Last Admin: 06/15/21 21:07 Dose: 6 mg Documented by: Senna (Sennosides 8.6 Mg Tablet) 17.2 mg PO BEDTIME PRN PRN Reason: Constipation Sodium Chloride (0.9 % Sodium Chloride Flush 3 Ml Syringe) 3 ml IVFLUSH QSHIFT [facility] Last Admin: 06/16/21 15:31 Dose: Not Given Documented by: Tamsulosin HCl (Tamsulosin Hcl 0.4 Mg Capsule) 0.4 mg PO BEDTIME [facility] Last Admin: 06/15/21 22:52 Dose: 0.4 mg Documented by: Home Medications Medication Instructions Recorded Confirmed Last Taken Type benztropine 2 mg tablet 2 mg PO BID 02/16/21 06/15/21 Unknown History docusate sodium 100 mg capsule 100 mg PO BID 02/16/21 06/15/21 Unknown History elviteg 150 mg-cob 150 mg-emtricit 1 tab PO DAILY 02/16/21 06/15/21 Unknown History 200 mg-tenofo alafenam 10 mg tablet (Genvoya) insulin aspar prot-insulin aspart 46 unit SUBCUT BEDTIME 02/16/21 06/15/21 Unknown History 100 unit/mL (70-30) subcutaneous pen (Novolog Mix 70-30FlexPen U-100) lithium carbonate 300 mg tablet 900 mg PO DAILY 02/16/21 06/15/21 Unknown History xbehteycgtub-seszsbmo-dflohw 1 tab PO DAILY 02/16/21 06/15/21 Unknown History tablet (Cerovite Senior) pen needle, diabetic 32 gauge x #50 ea 02/16/21 03/05/21 Unknown History (BD Viv 2nd Gen Pen Needle) pravastatin 40 mg tablet 40 mg PO BEDTIME 02/16/21 06/15/21 Unknown History propranolol 20 mg tablet 20 mg PO DAILY 02/16/21 06/15/21 Unknown History risperidone 3 mg tablet 6 mg PO BEDTIME 02/16/21 06/15/21 Unknown History insulin aspar prot-insulin aspart 56 unit SUBCUT DAILY 03/05/21 06/15/21 Unknown History 100 unit/mL (70-30) subcutaneous pen (Novolog Mix 70-30FlexPen U-100) omeprazole 20 mg capsule,delayed 1 cap PO DAILY 03/05/21 06/15/21 Unknown History release naproxen 500 mg tablet 1 tab PO BID 06/15/21 06/15/21 Unknown History pregabalin 75 mg capsule 1 cap PO BID 06/15/21 06/15/21 Unknown History valbenazine 40 mg capsule 40 mg PO DAILY 06/15/21 06/15/21 Unknown History (Alexis) Physical Exam Vital Signs: Vital Signs: Last Vital Signs Temp 99.1 F 06/16/21 08:00 Pulse 84 06/16/21 08:00 Resp 18 06/16/21 08:00 BP 124/62 06/16/21 08:00 Pulse Ox 98 06/16/21 08:00 BMI result Body Mass Index 24.1 Const: General: cooperative HEENT: Head: Yes normal to inspection Mouth: Normal oral and palatal mucosa present Resp: Effort & Inspection: normal respiratory effort Cardio: Rate: regular rate Rhythm: regular rhythm GI: Other: feet look improved from last visit ,no cellulitis Palpation (GI): Soft to palpation and nontender Skin: General skin exam: no rashes or lesions noted Results Labs CBC & Chem 7: 06/16/21 07:02 06/16/21 07:02 Labs: Short CBC 06/16/21 Range/Units 07:02 WBC 11.1 H (4.8-10.8) X10*3/uL Hgb 11.7 L (14.0-18.0) g/dl Hct 35.2 L (42.0-52.0) % Plt Count 87 L D (160-400) X10*3/uL BMP 06/16/21 07:02 Sodium 139 Potassium 3.9 Chloride 112 H Carbon Dioxide 21 L BUN 15 Creatinine 0.98 Calcium 8.8 D Urine 06/15/21 Range/Units 19:02 Urine Color YELLOW Urine Appearance CLEAR Urine pH 6.0 (5.0-8.0) Ur Specific [place] <= 1.005 (1.005-1.025) Urine Protein NEG (NEG-TRACE) MG/DL Urine Glucose (UA) NEG (NEG) MG/DL Microbiology Microbiology Results: Microbiology 06/15/21 13:27 Blood - Venous Blood Culture - Preliminary No growth after 24 hours. 06/15/21 13:27 Blood - Venous Blood Culture - Preliminary No growth after 24 hours. Assessment and Plan (1) Sepsis: Status: Acute He has fever and concern over recurrent cellulitis feet. He completed over six week course of Ceftriaxone February to April and n ot sure if taking prophylactic PCN He has known osteomyelitis and not inclined to give second course of IV as dont think helpful unless other organism He has possible bacteremia other source (2) HIV (human immunodeficiency virus infection): Status: Acute (3) Osteomyelitis of left foot: Status: Acute Would continue Zosyn and Vancomycin Await cultures.
[2021-06-16] MEDS: vancomycin HCL 750 MG in 0.9 % Sodium Chloride 250 ML 265 MG IV (16:07)
[2021-06-16 16:21] VITALS: BP 119/62; PULSE 100; RESP 16; TEMP 36.7; O2SAT 97
[2021-06-16 18:09] LABS: Glucose, Whole Blood 84 mg/dL (60-115)
[2021-06-16] MEDS: risperiDONE 3 MG TABLET 6 MG PO (20:34)
[2021-06-16] MEDS: Tamsulosin HCL 0.4 MG CAPSULE PO (20:34)
[2021-06-16] MEDS: Pravastatin Sodium 40 MG TABLET PO (20:34)
[2021-06-16 20:54] LABS: Glucose, Whole Blood 155 mg/dL (60-115)
[2021-06-17] VITALS (8 sets, daily range): BP systolic 117–149; BP diastolic 57–99; PULSE 62–85; RESP 16–18; TEMP 36.5–37.2; O2SAT 96–99
[2021-06-17] MEDS: Piperacillin Sodium/Tazobactam 3.375 GM in 0.9 % Sodium Chloride 50 ML IV ×4 (01:28→21:21)
[2021-06-17] MEDS: 0.9 % Sodium Chloride Flush 3 ML SYRINGE IVFLUSH (01:29)
[2021-06-17] MEDS: vancomycin HCL 750 MG in 0.9 % Sodium Chloride 250 ML 265 MG IV ×2 (03:05→16:39)
[2021-06-17] MEDS: Heparin Sodium,Porcine 5,000 UNIT/ML VIAL 5000 UNIT SUBCUT ×3 (03:05→21:17)
[2021-06-17 06:27] LABS: Hematocrit 37.9 % (42.0-52.0); Hemoglobin 12.5 g/dl (14.0-18.0); Mean Corpuscular Volume 90.9 fL (80.0-98.0); Red Blood Count 4.17 X10*6/uL (4.60-5.80); Red Cell Distribution Width 12.6 % (11.0-16.0); White Blood Count 9.2 X10*3/uL (4.8-10.8)
[2021-06-17 06:29] LABS: Platelet Count 74 X10*3/uL (160-400)
[2021-06-17 06:47] LABS: Anion Gap 11 (12-20); Blood Urea Nitrogen 15 mg/dL (9-16); Calcium 9.3 mg/dL (8.4-10.2); Carbon Dioxide 22 mmol/L (22-29); Chloride 112 mmol/L (96-108); Creatinine Clr Calc Pharmacy 71.8; Estimated Glomerular Filt Rate > 60; Glucose Fasting 97 mg/dL (60-99); Potassium 3.8 mmol/L (3.3-5.1); Sodium 141 mmol/L (135-145)
[2021-06-17 07:25] LABS: Glucose, Whole Blood 110 mg/dL (60-115)
--- NOTE | 2021-06-17 07:27 | HE.PHANOTE ---
SHARMILA LARA CONTINUE CURRENT DOSE, NEXT TROUGH IS 06/17 @1300
--- NOTE | 2021-06-17 09:28 | P.PNIM_ITS ---
Subjective Subjective Date of Service: 06/17/21 Interval History: cc: fevers interval history:feels fine Cardiovascular Cardiovascular: Reports no additional cardiovascular complaints Respiratory Respiratory: Reports no additional respiratory complaints Physical Exam Vital Signs: Vital Signs: Last Vital Signs Temp 98.0 F 06/17/21 07:11 Pulse 85 06/17/21 07:11 Resp 18 06/17/21 07:11 BP 117/57 L 06/17/21 07:11 Pulse Ox 98 06/17/21 07:11 BMI result Body Mass Index 24.1 General: AO X 3, no acute distress Resp:? CTA bilateral, no accessory muscles used CVS: S1,S2,RRR GI: soft, non tender, non distended Neuro:? motor grossly intact, alert Psych: appropriate affect, appropriate insight? skin: bilateral plantar ulcers Objective Data Active Medications Benztropine Mesylate (Benztropine Mesylate 1 Mg Tablet) 2 mg PO BID [facility] Last Admin: 06/16/21 20:34 Dose: 2 mg Documented by: SHANE Dextrose (Dextrose 50 % 25 Gm/50 Ml Syringe) 25 gm IVPUSH Q15M PRN; Protocol PRN Reason: per Hypoglycemia Standing Ord. Docusate Sodium (Docusate Sodium 100 Mg Capsule) 100 mg PO BID [facility] Last Admin: 06/16/21 20:34 Dose: 100 mg Documented by: SHANE Finasteride (Finasteride 5 Mg Tablet) 5 mg PO DAILY [facility] Last Admin: 06/16/21 08:51 Dose: 5 mg Documented by: ARIANNA Glucose (Glucose Gel 15 Gm Gel..Gram.) 15 gm PO Q15M PRN; Protocol PRN Reason: per Hypoglycemia Standing Ord. Heparin Sodium (Porcine) (Heparin Sodium,Porcine 5,000 Unit/Ml Vial) 5,000 unit SUBCUT Q8H [facility] Last Admin: 06/17/21 03:05 Dose: 5,000 unit Documented by: MANFRED Sodium Chloride (Ns) 1,000 mls @ 50 mls/hr IVCONT .Q20H [facility] Last Admin: 06/16/21 16:06 Dose: 50 mls/hr Documented by: VENUS Piperacillin Sod/Tazobactam (Sod 3.375 gm/ Sodium Chloride) 50 mls @ 100 mls/hr IV Q6H [facility] Last Infusion: 06/17/21 03:09 Dose: 0 mls/hr Documented by: MANFRED Vancomycin HCl 750 mg/ Sodium (Chloride) 265 mls @ 265 mls/hr IV Q12H [facility] Last Infusion: 06/17/21 04:28 Dose: 0 mls/hr Documented by: MANFRED Insulin Glargine (Insulin Glargine,Hum.Rec.Anlog 100 Unit/Ml 10 Ml Vial) 30 unit SUBCUT BID [facility] Last Admin: 06/16/21 21:03 Dose: 30 unit Documented by: SHANE Insulin Human Lispro (Insulin Lispro 100 Unit/Ml 3 Ml Vial) 0 unit SUBCUT QIDACHS [facility]; Protocol Last Admin: 06/17/21 07:24 Dose: Not Given Documented by: FARAZ Non-Admin Reason: No Insulin Coverage [place] Carbonate ([place] Carbonate 300 Mg Capsule) 900 mg PO DAILY [facility] Last Admin: 06/16/21 09:26 Dose: 900 mg Documented by: ARIANNA Melatonin (Melatonin 3 Mg Tablet) 6 mg PO BEDTIME PRN PRN Reason: Insomnia Multivitamins/Vitamin C (Multivitamin Tablet) 1 tab PO DAILY [facility] Last Admin: 06/16/21 08:51 Dose: 1 tab Documented by: ARIANNA Patient Own (Medication (Genvoya)) 1 each PO DAILY [facility] Patient Own Medication (Ingrezza 40 Mg) 1 each PO DAILY [facility] Omeprazole (Omeprazole 20 Mg Capsule.Dr) 20 mg PO DAILY [facility] Last Admin: 06/16/21 08:51 Dose: 20 mg Documented by: ARIANNA Pharmacy Consult (Consult Rx Perform Med Rec) 1 each MISCELLANE ONCE PRN PRN Reason: Consult order Pharmacy Consult (Consult Rx Vancomycin Dosing) 1 each MISCELLANE DAILY PRN PRN Reason: Consult order Pravastatin Sodium (Pravastatin Sodium 40 Mg Tablet) 40 mg PO BEDTIME [facility] Last Admin: 06/16/21 20:34 Dose: 40 mg Documented by: SHANE Pregabalin (Pregabalin 75 Mg Capsule) 75 mg PO BID [facility] Last Admin: 06/16/21 20:34 Dose: 75 mg Documented by: SHANE Propranolol HCl (Propranolol Hcl 20 Mg Tablet) 20 mg PO DAILY [facility]; Protocol Last Admin: 06/16/21 09:26 Dose: 20 mg Documented by: HO.CHARTN Risperidone (Risperidone 3 Mg Tablet) 6 mg PO BEDTIME [facility] Last Admin: 06/16/21 20:34 Dose: 6 mg Documented by: SHANE Senna (Sennosides 8.6 Mg Tablet) 17.2 mg PO BEDTIME PRN PRN Reason: Constipation Sodium Chloride (0.9 % Sodium Chloride Flush 3 Ml Syringe) 3 ml IVFLUSH QSHIFT [facility] Last Admin: 06/17/21 01:29 Dose: 3 ml Documented by: MANFRED Tamsulosin HCl (Tamsulosin Hcl 0.4 Mg Capsule) 0.4 mg PO BEDTIME [facility] Last Admin: 06/16/21 20:34 Dose: 0.4 mg Documented by: SHANE Labs CBC & Chem 7: 06/17/21 05:32 06/17/21 05:32 Labs: Laboratory Results - last 24 hr 06/16/21 06/16/21 06/16/21 11:41 13:20 13:44 MCV MCH MCHC RDW Plt Count MPV Absolute Nucleated RBC Nucleated RBC % (auto) Anion Gap Estim Creat Clear Calc Estimated GFR POC Glucose 234 H 153 H Fasting Glucose Calcium Vancomycin Trough 9.2 L 06/16/21 06/16/21 06/17/21 17:59 20:51 05:32 MCV MCH MCHC RDW Plt Count MPV Absolute Nucleated RBC Nucleated RBC % (auto) Anion Gap 11 L Estim Creat Clear Calc 71.8 Estimated GFR > 60 POC Glucose 84 155 H Fasting Glucose 97 Calcium 9.3 Vancomycin Trough 06/17/21 06/17/21 05:32 07:14 MCV 90.9 MCH 30.0 MCHC 33.0 RDW 12.6 Plt Count 74 L MPV 12.0 Absolute Nucleated RBC 0.000 Nucleated RBC % (auto) 0.0 Anion Gap Estim Creat Clear Calc Estimated GFR POC Glucose 110 Fasting Glucose Calcium Vancomycin Trough Microbiology Microbiology Results: Microbiology 06/15/21 13:27 Blood Culture - Preliminary Blood - Venous No growth after 24 hours. 06/15/21 13:27 Blood Culture - Preliminary Blood - Venous No growth after 24 hours. Assessment and Plan (1) Sepsis: Status: Acute Plan 55M presented with non healing foot wounds and fevers sepsis present on admission due to DFUs bilateral vanc, zosyn plan for debridement ID and surgery following montior cultures, vanc trough hiv elviteg mood disorder lithium, risperidone, benztropine bph flomax dvt prophylaxis - hep sq full code reason for continued hospitalization: iv abx, at risk for decompensating sepsis Quality Stroke Does the patient have a stroke diagnosis?: No VTE Prior VTE?: No VTE Risk Level:: Medical - moderate - high VTE Device Contraindication: Treatment Not Indicated VTE Drug Contraindication: N/A - Med Ordered
[2021-06-17] MEDS: Benztropine Mesylate 1 MG TABLET 2 MG PO ×2 (09:29→21:22)
[2021-06-17] MEDS: Finasteride 5 MG TABLET PO (09:29)
[2021-06-17] MEDS: Docusate Sodium 100 MG CAPSULE PO ×2 (09:29→21:18)
[2021-06-17] MEDS: Omeprazole 20 MG CAPSULE.DR PO (09:29)
[2021-06-17] MEDS: Propranolol HCL 20 MG TABLET PO (09:29)
[2021-06-17] MEDS: Pregabalin 75 MG CAPSULE PO ×2 (09:30→21:18)
[2021-06-17] MEDS: Multivitamin TABLET 1 TAB PO (09:30)
[2021-06-17] MEDS: Lithium Carbonate 300 MG CAPSULE 900 MG PO (09:30)
[2021-06-17] MEDS: Insulin Glargine,Hum.rec.anlog 100 UNIT/ML 10 ML VIAL 30 UNIT SUBCUT ×2 (09:31→21:22)
--- NOTE | 2021-06-17 10:20 | MHC.CM.PN ---
PATIENT STATES THAT HE LIVES IN A [facility] PROVIDED HOME. 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 HE HAS A CANE AND A WALKER IN THIS HOME. PCP IS RADHA RAMIREZ. COVID VACCINATED X 3 BUT UNABLE TO RECALL BRAND OR DATES. HE DOES NOT HAVE A HCP AND IS NOT INTERESTED IN ASSIGNING ONE, ALTHOUGH HE DOES STATE THAT HE TRUSTS BRIDGER FERRARI WHO WORKS AT THE HOME. PATIENT WILL LIKELY NEED ASSIST WITH TRANSPORT HOME. CASE MANAGEMENT FOLLOWING FOR DC PLANS.
--- NOTE | 2021-06-17 10:22 | PM.PNGS ---
Subjective Subjective Date of Service: 06/17/21 Interval history: Feels fine. Wants to go home. Denies foot pain. Physical Exam Vital Signs: Vital Signs: Last Vital Signs Temp 98.0 F 06/17/21 07:11 Pulse 85 06/17/21 07:11 Resp 18 06/17/21 07:11 BP 117/57 L 06/17/21 07:11 Pulse Ox 98 06/17/21 07:11 BMI result Body Mass Index 24.1 Const: General: comfortable, no acute distress and alert Orientation/consciousness: patient oriented x3 Resp: Effort & Inspection: normal respiratory effort Skin: Other: no rash Neuro: General: patient oriented x3 Extrem: Other: right foot- large calluses on plantar aspect at first and fifth metatarsal head, no surrounding erythema, there is some bogginess of over the plantar aspect of the metatarsal head of the first toe with about 1.5cm round ulceration centrally and extending medially; some sharp debridement performed of surrounding callus with a scalpel, small amount of drainage at inferior aspect of callus- serous, no purulence noted; no necrosis or eschar noted. No other overlying skin changes of the first big toe/ MTP joint Objective Data Active Medications Benztropine Mesylate (Benztropine Mesylate 1 Mg Tablet) 2 mg PO BID [facility] Last Admin: 06/17/21 09:29 Dose: 2 mg Documented by: FARAZ Dextrose (Dextrose 50 % 25 Gm/50 Ml Syringe) 25 gm IVPUSH Q15M PRN; Protocol PRN Reason: per Hypoglycemia Standing Ord. Docusate Sodium (Docusate Sodium 100 Mg Capsule) 100 mg PO BID [facility] Last Admin: 06/17/21 09:29 Dose: 100 mg Documented by: FARAZ Finasteride (Finasteride 5 Mg Tablet) 5 mg PO DAILY [facility] Last Admin: 06/17/21 09:29 Dose: 5 mg Documented by: FARAZ Glucose (Glucose Gel 15 Gm Gel..Gram.) 15 gm PO Q15M PRN; Protocol PRN Reason: per Hypoglycemia Standing Ord. Heparin Sodium (Porcine) (Heparin Sodium,Porcine 5,000 Unit/Ml Vial) 5,000 unit SUBCUT Q8H [facility] Last Admin: 06/17/21 03:05 Dose: 5,000 unit Documented by: MANFRED Sodium Chloride (Ns) 1,000 mls @ 50 mls/hr IVCONT .Q20H [facility] Last Admin: 06/16/21 16:06 Dose: 50 mls/hr Documented by: VENUS Piperacillin Sod/Tazobactam (Sod 3.375 gm/ Sodium Chloride) 50 mls @ 100 mls/hr IV Q6H [facility] Last Infusion: 06/17/21 10:15 Dose: 100 mls/hr Documented by: FARAZ Vancomycin HCl 750 mg/ Sodium (Chloride) 265 mls @ 265 mls/hr IV Q12H [facility] Last Infusion: 06/17/21 04:28 Dose: 0 mls/hr Documented by: MANFRED Insulin Glargine (Insulin Glargine,Hum.Rec.Anlog 100 Unit/Ml 10 Ml Vial) 30 unit SUBCUT BID [facility] Last Admin: 06/17/21 09:31 Dose: 30 unit Documented by: FARAZ Insulin Human Lispro (Insulin Lispro 100 Unit/Ml 3 Ml Vial) 0 unit SUBCUT QIDACHS [facility]; Protocol Last Admin: 06/17/21 07:24 Dose: Not Given Documented by: FARAZ Non-Admin Reason: No Insulin Coverage [place] Carbonate ([place] Carbonate 300 Mg Capsule) 900 mg PO DAILY [facility] Last Admin: 06/17/21 09:30 Dose: 900 mg Documented by: FARAZ Melatonin (Melatonin 3 Mg Tablet) 6 mg PO BEDTIME PRN PRN Reason: Insomnia Multivitamins/Vitamin C (Multivitamin Tablet) 1 tab PO DAILY [facility] Last Admin: 06/17/21 09:30 Dose: 1 tab Documented by: FARAZ Patient Own (Medication (Genvoya)) 1 each PO DAILY [facility] Last Admin: 06/17/21 10:14 Dose: 1 each Documented by: FARAZ Patient Own Medication (Ingrezza 40 Mg) 1 each PO DAILY [facility] Last Admin: 06/17/21 10:13 Dose: 1 each Documented by: FARAZ Omeprazole (Omeprazole 20 Mg Capsule.) 20 mg PO DAILY [facility] Last Admin: 06/17/21 09:29 Dose: 20 mg Documented by: FARAZ Pharmacy Consult (Consult Rx Perform Med Rec) 1 each MISCELLANE ONCE PRN PRN Reason: Consult order Pharmacy Consult (Consult Rx Vancomycin Dosing) 1 each MISCELLANE DAILY PRN PRN Reason: Consult order Pravastatin Sodium (Pravastatin Sodium 40 Mg Tablet) 40 mg PO BEDTIME [facility] Last Admin: 06/16/21 20:34 Dose: 40 mg Documented by: SHANE Pregabalin (Pregabalin 75 Mg Capsule) 75 mg PO BID [facility] Last Admin: 06/17/21 09:30 Dose: 75 mg Documented by: FARAZ Propranolol HCl (Propranolol Hcl 20 Mg Tablet) 20 mg PO DAILY [facility]; Protocol Last Admin: 06/17/21 09:29 Dose: 20 mg Documented by: FARAZ Risperidone (Risperidone 3 Mg Tablet) 6 mg PO BEDTIME [facility] Last Admin: 06/16/21 20:34 Dose: 6 mg Documented by: SHANE Senna (Sennosides 8.6 Mg Tablet) 17.2 mg PO BEDTIME PRN PRN Reason: Constipation Sodium Chloride (0.9 % Sodium Chloride Flush 3 Ml Syringe) 3 ml IVFLUSH QSHIFT [facility] Last Admin: 06/17/21 09:29 Dose: Not Given Documented by: FARAZ Non-Admin Reason: IV Running Tamsulosin HCl (Tamsulosin Hcl 0.4 Mg Capsule) 0.4 mg PO BEDTIME [facility] Last Admin: 06/16/21 20:34 Dose: 0.4 mg Documented by: SHANE Labs CBC & Chem 7: 06/17/21 05:32 06/17/21 05:32 Labs: Laboratory Results - last 24 hr 06/16/21 06/16/21 06/16/21 11:41 13:20 13:44 MCV MCH MCHC RDW Plt Count MPV Absolute Nucleated RBC Nucleated RBC % (auto) Anion Gap Estim Creat Clear Calc Estimated GFR POC Glucose 234 H 153 H Fasting Glucose Calcium Vancomycin Trough 9.2 L 06/16/21 06/16/21 06/17/21 17:59 20:51 05:32 MCV MCH MCHC RDW Plt Count MPV Absolute Nucleated RBC Nucleated RBC % (auto) Anion Gap 11 L Estim Creat Clear Calc 71.8 Estimated GFR > 60 POC Glucose 84 155 H Fasting Glucose 97 Calcium 9.3 Vancomycin Trough 06/17/21 06/17/21 05:32 07:14 MCV 90.9 MCH 30.0 MCHC 33.0 RDW 12.6 Plt Count 74 L MPV 12.0 Absolute Nucleated RBC 0.000 Nucleated RBC % (auto) 0.0 Anion Gap Estim Creat Clear Calc Estimated GFR POC Glucose 110 Fasting Glucose Calcium Vancomycin Trough Microbiology Microbiology Results: Microbiology 06/15/21 13:27 Blood Culture - Preliminary Blood - Venous No growth after 24 hours. 06/15/21 13:27 Blood Culture - Preliminary Blood - Venous No growth after 24 hours. Procedures Date of Service Date of Service: 06/17/21 Progress Note: A&P Assessment and plan (1) Diabetic foot ulcers: Status: Acute Plan 55-year-old male patient with multiple medical problems including HIV, elevated glucose, probable peripheral vascular disease presenting with bilateral thick callused feet with ulceration previous diagnosis of osteomyelitis returning for fever. Examination reveals very large, thick calluses at the plantar aspect of the first metatarsal head with very mild bogginess noted. Sharp debridement of the area was performed at bedside. This did not reveal any purulence, eschar or any acute changes that need to be currently surgically treated. He can continue to follow up with wound care regarding his diabetic foot ulcers. Time Spent With Patient Time: Total time spent is greater than 50% in coordination of care (as documented) at patient's floor/unit and/or counseling patient: Quality Stroke Does the patient have a stroke diagnosis?: No VTE Prior VTE?: No VTE Risk Level:: Medical - moderate - high VTE Device Contraindication: Treatment Not Indicated VTE Drug Contraindication: N/A - Med Ordered
[2021-06-17 12:03] LABS: Glucose, Whole Blood 115 mg/dL (60-115)
[2021-06-17] MEDS: 0.9 % Sodium Chloride 1,000 ML 50 ML IVCONT (14:38)
--- NOTE | 2021-06-17 14:39 | P.PNVS_ITS ---
Subjective Subjective Date of Service: 06/17/21 Patient reports: no new complaints and feels better Interval history: Complex 55-year-old gentleman presents for bilateral nonhealing lower extremity foot wounds. They are both on the plantar aspects of the right and left foot. He has had noninvasive arterial testing. Of note he is being followed by General surgery and had bilateral foot debridement performed at bedside. He now presents to us for follow-up. Physical Exam Vital Signs: Vital Signs: Last Vital Signs Temp 98.7 F 06/17/21 11:32 Pulse 75 06/17/21 11:32 Resp 18 06/17/21 11:32 BP 129/99 H 06/17/21 11:32 Pulse Ox 99 06/17/21 11:32 BMI result Body Mass Index 24.1 Const: General: cooperative, healthy appearing and no acute distress [place] ation/consciousness: oriented to person, oriented to place and oriented to time HEENT: Head: Yes normal to inspection Neck: Carotids: no bruits Chest: Chest palpation & inspection: normal inspection of the chest Resp: Effort & Inspection: normal respiratory effort and able to speak in complete sentences Auscultation: clear to auscultation bilaterally Cardio: Rate: regular rate Heart sounds: S1 normal heart sound present and S2 normal heart sound present GI: Inspection: Yes normal to inspection Skin: General skin exam: no rashes or lesions noted Wounds: wounds noted (Right plantar foot lateral; left lateral foot on plantar) Neuro: General: oriented to person, oriented to place, oriented to time and CN's II-XI intact bilaterally Extrem: General: Yes normal to inspection, Yes full ROM and Yes no clubbing, cyanosis or edema Psych: Appearance: grossly normal and well kempt Speech and movement: Normal speech and movement present Affect: normal affect Progress Note: A&P Assessment and plan (1) Diabetic foot ulcers: Status: Acute Assessment and Plan: In short patient has nonhealing diabetic foot ulcers. I did review his noninvasive arterial testing which demonstrates an KADI on the right of 0.96 and on the left of 0.88. This should be adequate for allowing for healing on bilateral lower extremities. I did discuss the importance of offloading. G eneral surgery is following for wound care. He will follow up with us as an outpatient. Thank you for allowing us to assist in his care. Time Spent With Patient Time: Total time spent is greater than 50% in coordination of care (as documented) at patient's floor/unit and/or counseling patient: Procedures Date of Service Date of Service: 06/17/21 Quality Stroke Does the patient have a stroke diagnosis?: No VTE Prior VTE?: No VTE Risk Level:: Medical - moderate - high VTE Device Contraindication: Treatment Not Indicated VTE Drug Contraindication: N/A - Med Ordered
[2021-06-17 15:20] LABS: Vancomycin Trough 11.7 mcg/mL (10.0-20.0)
--- NOTE | 2021-06-17 15:39 | HE.PHANOTE ---
Patient trough 11.7, auc 438, cont same dose next level 06/19@1300
[2021-06-17 16:15] LABS: Glucose, Whole Blood 103 mg/dL (60-115)
[2021-06-17 20:07] LABS: Glucose, Whole Blood 123 mg/dL (60-115)
[2021-06-17] MEDS: risperiDONE 3 MG TABLET 6 MG PO (21:18)
[2021-06-17] MEDS: Pravastatin Sodium 40 MG TABLET PO (21:18)
[2021-06-17] MEDS: Tamsulosin HCL 0.4 MG CAPSULE PO (21:18)
[2021-06-18] MEDS: Piperacillin Sodium/Tazobactam 3.375 GM in 0.9 % Sodium Chloride 50 ML IV ×2 (02:41→09:50)
[2021-06-18 03:01] VITALS: BP 137/52; PULSE 69; RESP 16; TEMP 36.9; O2SAT 97
[2021-06-18] MEDS: vancomycin HCL 750 MG in 0.9 % Sodium Chloride 250 ML 265 MG IV (03:19)
[2021-06-18] MEDS: Heparin Sodium,Porcine 5,000 UNIT/ML VIAL 5000 UNIT SUBCUT (04:28)
[2021-06-18 06:09] LABS: Creatinine Clr Calc Pharmacy 70.6; Estimated Glomerular Filt Rate > 60
--- NOTE | 2021-06-18 07:29 | HE.PHANOTE ---
RE MARCO SCR IS 1.13, CONTINUE CURRENT DOSE . NEXT TROUGH IS 06/19 @1300
[2021-06-18 07:32] VITALS: BP 106/70; PULSE 83; RESP 18; TEMP 37; O2SAT 97
[2021-06-18 07:39] LABS: Glucose, Whole Blood 83 mg/dL (60-115)
--- NOTE | 2021-06-18 09:49 | PM.DS ---
DS: Providers Provider Date of Service: 06/18/21 Date of admission: 06/15/21 19:40 Primary care physician: Unknown Physician Consults: 06/15/21 19:40 Consult to General Surgery Routine Consulting Provider: Nigel Osman Reason for consultation: foot wounds/cellulitis/?infectiopus arthritis in MTP Consult to Infectious Diseases Routine Consulting Provider: Angie Wade Reason for consultation: foot wounds/cellulitis/?infectiopus arthritis in MTP 06/16/21 08:49 Consult to Vascular Surgery Routine Consulting Provider: Hollis Kramer Reason for consultation: DM, OM DS: Diagnosis Discharge Diagnosis (1) Diabetic foot ulcers: Status: Acute DS: Summary Hospital Course Hospital Course: from initial hpi: Chief Complaint: Bilateral foot ulcers 55-year-old male with a past medical history of HIV, BPH, erectile dysfunction, hepatitis, history of group B strep bacteremia, history of foot osteomyelitis-finished course of antibiotics in April 2021; presented from the [place] [facility] with a chief complaint of bilateral foot wounds and fever; Patient is a poor historian.? Most of the history obtained from the records and ER staff.? Reportedly patient has been having worsening foot ulcers; developed fever at the [place] [facility].? Patient denies any chest pain or palpitations.? Denies any nausea vomiting diarrhea.? Denies any urinary symptoms. Patient reports that he has been following with the wound doctor as outpatient; Review of all other systems is negative except mentioned above hospital course: Patient was admitted for sepsis secondary to bilateral diabetic foot ulcers with chronic osteomyelitis an overlying cellulitis. He was empirically treated vancomycin Zosyn. He was seen by surgery performed bedside debridement. He was seen by vascular surgery who was satisfied with vascular flow. Wound culture grew group B strep. Blood cultures were negative. Sepsis resolved. Patient was seen by infectious disease recommended 1 week of oral Ceftin followed by penicillin 250 mg b.i.d.. For his HIV he will continue on elviteg, for his mood disorder will continue lithium risperidone and benztropine. For his BPH will continue Flomax. Time Spent with Patient Time attestation: Total time spent providing and/or coordinating discharge services: Discharge coordination time: Greater than 30 minutes Quality: Safe Use of Opioids Does Pt have an Active Cancer Diagnosis on the Problem List?: No Quality: Stroke Does the patient have a stroke diagnosis?: No Physical Exam Vital Signs: Vital Signs: Last Vital Signs Temp 98.6 F 06/18/21 07:32 Pulse 83 06/18/21 07:32 Resp 18 06/18/21 07:32 BP 106/70 06/18/21 07:32 Pulse Ox 97 06/18/21 07:32 BMI result Body Mass Index 24.1 General: AO X 3, no acute distress Resp:? CTA bilateral, no accessory muscles used CVS: S1,S2,RRR GI: soft, non tender, non distended Neuro:? motor grossly intact, alert Psych: appropriate affect, appropriate insight? skin: bilateral plantar ulcers DS: Data Data Completed and Pending Completed studies during hospitalization [Text1]: Procedures Insertion of Infusion Device into Superior Vena Cava, Percutaneous Approach (03/05/21) Labs on day of discharge: Laboratory Results - last 24 hr 06/17/21 06/17/21 06/17/21 11:52 14:28 15:24 Creatinine Estim Creat Clear Calc Estimated GFR POC Glucose 115 103 Vancomycin Trough 11.7 06/17/21 06/18/21 06/18/21 19:47 05:18 07:31 Creatinine 1.13 Estim Creat Clear Calc 70.6 Estimated GFR > 60 POC Glucose 123 H 83 Vancomycin Trough Preliminary micro results at discharge 06/15/21 13:27 Blood Culture - Preliminary Blood - Venous No growth after 48 hours. 06/15/21 13:27 Blood Culture - Preliminary Blood - Venous No growth after 48 hours. Discharge Plan Discharge Patient Disposition: Home, Self-Care Discharge Diagnosis: cellulitis, chronic OM Referrals: Angie Wade MD [Physician] - 1 Week Physician,Unknown J [Primary Care Provider] - 1 Week Discharge Medications: New cefuroxime axetil 500 mg tablet 500 mg PO BID Qty: 14 0RF Continued tamsulosin 0.4 mg capsule 0.4 mg PO BEDTIME 30 Days Qty: 90 3RF omeprazole 20 mg capsule,delayed release(DR/EC) 1 cap PO DAILY 0RF insulin asp prt-insulin aspart [Novolog Mix 70-30FlexPen U-100] 100 unit/mL (70-30) insulin pen 56 unit subcut DAILY 0RF naproxen 500 mg tablet 1 tab PO BID 0RF pregabalin 75 mg capsule 1 cap PO BID 0RF Ingrezza 40 mg Capsule 40 mg PO DAILY 0RF Genvoya [phone] mg tablet 1 tab PO DAILY 0RF (DME) pen needle, diabetic [BD Viv 2nd Gen Pen Needle] 32 gauge x 5/32 needle See Rx Instructions ea .ROUTE .MEDSUPPLY Qty: 50 0RF Rx Instructions: As directed pravastatin 40 mg tablet 40 mg PO BEDTIME 0RF lithium carbonate 300 mg tablet 900 mg PO DAILY 0RF propranolol 20 mg tablet 20 mg PO DAILY 0RF risperidone 3 mg tablet 6 mg PO BEDTIME 0RF Cerovite Senior Tablet 1 tab PO DAILY 0RF docusate sodium 100 mg capsule 100 mg PO BID 0RF benztropine 2 mg tablet 2 mg PO BID 0RF insulin asp prt-insulin aspart [Novolog Mix 70-30FlexPen U-100] 100 unit/mL (70-30) insulin pen 46 unit subcut BEDTIME 0RF finasteride 5 mg tablet 5 mg PO DAILY 90 Days Qty: 90 1RF penicillin V potassium 250 mg tablet 250 mg PO BID 30 Days Qty: 60 1RF Discharge Orders: Discharge Order (Routine); Ordered 06/18/21 Ordered By: Drake Arnold Diet: advance to usual diet Activity on Discharge: As tolerated Stand Alone Forms: Patient Portal Discharge page Care Plan Goals: recovery Health Concerns: bilateral foot ulcers Plan of Treatment: one week ceftin, then pcn 250mg bid, follow up id and wound clinic Assessment: see above
[2021-06-18] MEDS: Lithium Carbonate 300 MG CAPSULE 900 MG PO (10:41)
[2021-06-18] MEDS: Pregabalin 75 MG CAPSULE PO (10:41)
[2021-06-18] MEDS: Docusate Sodium 100 MG CAPSULE PO (10:41)
[2021-06-18] MEDS: Finasteride 5 MG TABLET PO (10:41)
[2021-06-18] MEDS: Multivitamin TABLET 1 TAB PO (10:41)
[2021-06-18] MEDS: Insulin Glargine,Hum.rec.anlog 100 UNIT/ML 10 ML VIAL 30 UNIT SUBCUT (10:42)
[2021-06-18] MEDS: Omeprazole 20 MG CAPSULE.DR PO (10:42)
[2021-06-18] MEDS: Propranolol HCL 20 MG TABLET PO (10:42)
[2021-06-18] MEDS: Benztropine Mesylate 1 MG TABLET 2 MG PO (10:42)
[2021-06-18 11:03] VITALS: BP 131/76; PULSE 89; RESP 18; TEMP 36.6; O2SAT 100
[2021-06-18 11:16] LABS: Glucose, Whole Blood 223 mg/dL (60-115)
--- NOTE | 2021-06-18 11:32 | MHC.CM.PN ---
PT MEDICALLY CLEARED FOR D/C HOME NO SERVICES, CM CONTACTED PT [facility] ([facility]) MANAGER [facility] [place] WHO REPORTS HE CAN PICK PT UP AT 1PM, [place] REQUESTING SIGNED D/C SUMMARY OR THEY WILL NOT BE ABLE TO ADMINISTER NEW ABX.
== END 2021-06-18 14:27 | disposition home or self-care (01) | DRG 720 ==
LOC: HO.ED 17:09 → HO.EDOVER 19:52 → HO.S3 06-16 23:31
PROVIDERS: Physician Assistant; Admitting Provider Hospitalist; Emergency Provider Emergency Medicine; PCP Pediatrics; Visit Provider Internal Medicine
DX: A41.9 Sepsis, unspecified organism (principal); L97.419 Non-pressure chronic ulcer of right heel and midfoot with unspecified severity; E11.621 Type 2 diabetes mellitus with foot ulcer; L03.115 Cellulitis of right lower limb; L03.116 Cellulitis of left lower limb; L97.429 Non-pressure chronic ulcer of left heel and midfoot with unspecified severity; M86.672 Other chronic osteomyelitis, left ankle and foot; E11.69 Type 2 diabetes mellitus with other specified complication; M86.671 Other chronic osteomyelitis, right ankle and foot; F39 Unspecified mood [affective] disorder; N40.0 Benign prostatic hyperplasia without lower urinary tract symptoms; Z21 Asymptomatic human immunodeficiency virus [HIV] infection status; B95.1 Streptococcus, group B, as the cause of diseases classified elsewhere; Z20.822 Contact with and (suspected) exposure to COVID-19; Z88.6 Allergy status to analgesic agent; Z88.8 Allergy status to other drugs, medicaments and biological substances; Z79.4 Long term (current) use of insulin; Z79.899 Other long term (current) drug therapy
CPT/HCPCS: 36415; 70450; 71045; 73630; 80048; 80053; 80202; 81003; 82565; 82947; 83605; 83735; 84484; 85025; 85027; 85610; 87040; 87205; 87502; 87635; 93923; 93925; 96361; 96365; 96375; 99285; J0696; J2543; J3370

== ENCOUNTER 2021-07-27 10:57 | Inpatient (IN) | payer MEDICAID, SELFPAY ==
--- NOTE | ~2021-07-27 | XR_ITS ---
EXAMINATION: XR FOOT, RIGHT CLINICAL INFORMATION: Skin ulcer. COMPARISON: None TECHNIQUE: AP, lateral, and oblique views of the right foot. FINDINGS: Soft tissue deformity and mild to moderate swelling seen along the dorsum of the foot superficial to the metatarsophalangeal joints. No overt underlying subcortical erosive changes are seen. The joint spaces are unremarkable. The tarsal bones are normally aligned. Moderate plantar and large retrocalcaneal spurs are noted. XR/XR foot RT min 3V IMPRESSION: 1. Plantar soft tissue wound and swelling without overt underlying osteomyelitis. 2. Degenerative changes as detailed above without overt acute abnormality.
--- NOTE | ~2021-07-27 | XR_ITS ---
EXAMINATION: XR FOOT, LEFT CLINICAL INFORMATION: Skin ulcer COMPARISON: Previous x-ray June 2021 TECHNIQUE: AP, lateral, and oblique views of the left foot. FINDINGS: Bone alignment is normal. No fracture or dislocation is seen. The joint spaces are normal. There are large calcaneal spurs. There is soft tissue swelling adjacent to the lateral fifth metatarsal head and MTP joint. There is question of periosteal reaction and tiny cortical defect of the proximal phalanx of the fifth toe at the MTP joint questionable for osteomyelitis. XR/XR foot LT min 3V IMPRESSION: Soft tissue swelling adjacent to the fifth metatarsal head and fifth MTP joint. Question osteomyelitis of the proximal phalanx of the fifth toe at the MTP joint. Large calcaneal spurs.
[2021-07-27 11:02] VITALS: BP 142/78; PULSE 74; RESP 18; TEMP 37.2; O2SAT 100; BMI 18.4
[2021-07-27 12:24] LABS: Hematocrit 37.9 % (42.0-52.0); Hemoglobin 12.8 g/dl (14.0-18.0); Mean Corpuscular HGB Conc 33.8 g/dl (31.0-36.0); Mean Platelet Volume 10.2 fL (9.4-12.4); Platelet Count 212 X10*3/uL (160-400); Red Blood Count 4.26 X10*6/uL (4.60-5.80); White Blood Count 11.5 X10*3/uL (4.8-10.8)
[2021-07-27 12:52] LABS: B Type Natriuretic Peptide 16 pg/mL (<100)
--- NOTE | 2021-07-27 14:33 | ED_ITS ---
HPI - Skin/Abscess/Foreign Bdy General Chief complaint: Skin/Abscess/Foreign Body Stated complaint: foot infection Time Seen by Provider: 07/27/21 12:03 Source: patient, old records reviewed and historical interpreter Mode of arrival: ambulatory Limitations: no limitations History of Present Illness HPI narrative: 55 yo male with hx HIV, BPH, hepatitis, group B strep bacteremia, bilateral chronic foot wounds with known group b strep infection/bacteremia in past on daily PCN, followed by wound care center states they sent him over here I don't know why. I feel fine. 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 Patient states he takes all of his medications and PCN filled on 07/13/21 for known chronic osteo MD complaint: lesion Onset (ago): month(s) Tetanus up to date: yes Location: L foot and R foot Severity: mild Relieving factors: none Exacerbating factors: none Context: other (chronic ulcer and osteo ) Associated symptoms: denies other symptoms Treatments prior to arrival: bandages, antibiotic (penicillin 250mg BID) and other (treatments and debridement at wound care center) Related Data Home Medications Medication Instructions Recorded Confirmed benztropine 2 mg tablet 2 mg PO BID 02/16/21 07/27/21 docusate sodium 100 mg capsule 100 mg PO BID 02/16/21 07/27/21 elviteg 150 mg-cob 150 mg-emtricit 1 tab PO DAILY 02/16/21 07/27/21 200 mg-tenofo alafenam 10 mg tablet (Genvoya) insulin aspar prot-insulin aspart 38 unit subcut BEDTIME 02/16/21 07/27/21 100 unit/mL (70-30) subcutaneous pen (Novolog Mix 70-30FlexPen U-100) lithium carbonate 300 mg tablet 900 mg PO DAILY 02/16/21 07/27/21 pen needle, diabetic 32 gauge x #50 ea 02/16/21 03/05/21 (BD Viv 2nd Gen Pen Needle) pravastatin 40 mg tablet 40 mg PO BEDTIME 02/16/21 07/27/21 propranolol 20 mg tablet 20 mg PO DAILY 02/16/21 07/27/21 risperidone 3 mg tablet 6 mg PO BEDTIME 02/16/21 07/27/21 insulin aspar prot-insulin aspart 52 unit subcut DAILY 03/05/21 07/27/21 100 unit/mL (70-30) subcutaneous pen (Novolog Mix 70-30FlexPen U-100) omeprazole 20 mg capsule,delayed 1 cap PO DAILY 03/05/21 07/27/21 release naproxen 500 mg tablet 1 tab PO BID 06/15/21 06/15/21 valbenazine 40 mg capsule 40 mg PO DAILY 06/15/21 06/15/21 (Ingrezza) didfyojj-nbs-cncts acid 0.4 1 tab PO DAILY 07/27/21 07/27/21 mg-lycopene 300 mcg-lutein 250 mcg tablet (Cerovite Senior) pregabalin 100 mg capsule 1 cap PO BID 07/27/21 07/27/21 Previous Rx's Medication Instructions Recorded finasteride 5 mg tablet 5 mg PO DAILY 90 days #90 tabs 02/16/21 tamsulosin 0.4 mg capsule 0.4 mg PO BEDTIME 30 days #90 caps 04/06/21 penicillin V potassium 250 mg 250 mg PO BID 30 days #60 tabs 05/07/21 tablet Allergies Allergy/AdvReac Type Severity Reaction Status Date / Time acetaminophen [From TYLENOL] Allergy Unknown UNKNOWN Verified 05/07/21 10:50 aspirin [ASA] Allergy Unknown AGITATION Verified 05/07/21 10:50 trazodone [TRAZODONE] AdvReac Unknown HYPER Verified 05/07/21 10:50 Review of Systems Review of Systems: Constitutional : No Fever, No Chills ENT/Mouth : No sore throat, No Rhinorrhea Eyes: No Eye Pain, No Swelling, No Redness Cardiovascular : No Chest Pain, No SOB Respiratory : No Cough, No Sputum Gastrointestinal : No Nausea, No Vomiting, No Diarrhea, No abdominal Pain Genitourinary : No Dysuria, No Hematuria Musculoskeletal : No joint pain, No Myalgias, No Joint Swelling Skin : pos Skin Lesions, no skin rash Neuro : No Weakness, No Numbness, No Headache Psych : No Anxiety, No Depression Heme/Lymph: No Bruising, No Bleeding,No Lymphadenopathy Endocrine : No Polyuria, No Polydipsia All other systems reviewed and are negative PMFSH Past Medical History Attestation statement: The following information was validated with the patient. Source: old records reviewed Medical History BPH w urinary obs/LUTS Chronic prostatitis Erectile dysfunction due to arterial insufficiency Hepatitis HIV (human immunodeficiency virus infection) Osteomyelitis of left foot Urinary hesitancy Surgical History No pertinent past surgical history Family History Family History Father No problems noted. Mother No problems noted. Social History Social History Household Members: Other Housing: House Do you presently have visiting nurse or other home services: Yes Unable to assess alcohol history related to: Unknown Patient Tobacco Use Status: Tobacco use Unknown Advance Directives: No Advance Directives Information Provided: No service: No Current occupational status: unemployed Physical Exam Vital Signs: Vital Signs: Last Vital Signs Temp 98.7 F 07/27/21 14:50 Pulse 76 07/27/21 14:50 Resp 18 07/27/21 14:50 BP 127/66 07/27/21 14:50 Pulse Ox 97 07/27/21 14:50 O2 Del Method 07/27/21 14:50 BMI result Body Mass Index 18.4 Appearance: Alert. Oriented X3. No acute distress. Eyes: Pupils equal, round and reactive to light. ENT: Pharynx normal. Neck: Normal inspection. Neck supple. CVS: Normal heart rate and rhythm. Pulses normal. Respiratory: No respiratory distress. Breath sounds normal. Abdomen: Soft and nontender. Skin: Skin warm and dry. Normal skin color. Extremities: No lower extremity edema. L foot chronic wound on ball of foot - calloused over no signs of active infection, thickened no drainage, R foot medial aspect ball of foot flap noted yellowish material Neuro: Oriented X 3. No motor deficit. No sensory deficit. Course Course Course Narrative: Dr. Osman did see patient in ED will follow along - debrided R foot would recommend IV antibiotics he will change dressing in the AM labs / xray signed out to Dr. Tavera will need admission MDM - Skin/Abscess/Foreign Bdy MDM Narrative Medical decision making narrative: 55 yo male with hx HIV, BPH, hepatitis, group B strep bacteremia, bilateral chronic foot wounds at this time sent by wound care center for more wound care possible surgical debridement and antibiotics - labs, cultures, xray ordered, empiric zosyn. Likely admit will consult surgery in ED to see if they would recommend debridement while admitted. Lab Data Result diagrams: 07/27/21 12:19 07/27/21 16:04 Labs: Lab Results 07/27/21 07/27/21 Range/Units 12:19 12:19 WBC 11.5 H (4.8-10.8) X10*3/uL RBC 4.26 L (4.60-5.80) X10*6/uL Hgb 12.8 L (14.0-18.0) g/dl Hct 37.9 L (42.0-52.0) % MCV 89.0 (80.0-98.0) fL MCH 30.0 (27.0-33.0) pg MCHC 33.8 (31.0-36.0) g/dl RDW 12.0 (11.0-16.0) % Plt Count 212 D (160-400) X10*3/uL MPV 10.2 (9.4-12.4) fL Absolute Nucleated RBC 0.000 (0.0-0.012) X10*3/uL Nucleated RBC % (auto) 0.0 (0.0-0.2) /100WBC B-Natriuretic Peptide 16 (<100) pg/mL Discharge Plan Discharge Clinical Impression: Open wnd foot-complicated Qualifiers: Encounter type: subsequent encounter Laterality: right Qualified Code(s): S 91.301D - Unspecified open wound, right foot, subsequent encounter Patient Disposition: Admitted As Inpatient
[2021-07-27 14:50] VITALS: BP 127/66; PULSE 76; RESP 18; TEMP 37.1; O2SAT 97
--- NOTE | 2021-07-27 16:06 | P.CONGS_ITS ---
History of Present Illness Consult details Consult date: 07/27/21 Narrative: 55-year-old male, known diabetic, sent by the Wound Care Center for foot ulcers. He has had chronic ulcers and callus of both left and right feet. He was admitted the hospital about a month ago because of these. He had undergone bedside debridement at that time for calluses. He was discharged on Ceftin and oral penicillin because of group B bacteremia which also shown up on his wound cultures. He is being followed by the Wound Clinic and was to the ER today because of these wounds. He has chronic osteomyelitis and he is currently on oral antibiotics because of this. The patient is not a good historian at all. He does not know why was sent to the ER. He does not really offer much with regards to the details of his medical issues. He is a resident of a senior living. He denies any subjective fevers or chills. He does state that he has chronic pain mostly on the left foot. He says that the right foot is numb and he does not have much sensation on this. He says a wound care nurse visits him at the senior living for dressing changes. Review of Systems Constitutional: Constitutional: Denies chills and Denies fever(s) Cardiovascular: Cardiovascular: Denies chest pain, Denies dyspnea and Denies dyspnea on exertion Respiratory: Respiratory: Denies cough, Denies dyspnea and Denies dyspnea on exertion Gastrointestinal: Gastrointestinal: Denies hematochezia and Denies change in bowel habits Genitourinary: Genitourinary: Denies hematuria and Denies difficulty urinating Musculoskeletal: Musculoskeletal: Denies back pain and Denies limited range of motion Neurologic: Denies focal weakness and Denies convulsions Psychiatric: Psychiatric: Denies depression and Denies mood swings [facility] Past Medical History Medical History BPH w urinary obs/LUTS Chronic prostatitis Erectile dysfunction due to arterial insufficiency Hepatitis HIV (human immunodeficiency virus infection) Osteomyelitis of left foot Urinary hesitancy Family History Family History Father No problems noted. Mother No problems noted. Surgical History Surgical History No pertinent past surgical history Social History Social History Household Members: Unknown / Unable to assess Housing: House Do you presently have visiting nurse or other home services: Yes Unable to assess alcohol history related to: Refusing to respond Alcohol intake: former Patient Tobacco Use Status: Tobacco use Unknown Use of substances other than those prescribed or required for medical reasons: Refusing to respond Advance Directives: No Advance Directives Information Provided: No Do you have thoughts of harming others: None Do you have a plan to hurt others: No Plan Recently lost weight without trying: Unsure service: No Current occupational status: unemployed Meds Allergies Allergy/AdvReac Type Severity Reaction Status Date / Time acetaminophen [From TYLENOL] Allergy Unknown UNKNOWN Verified 05/07/21 10:50 aspirin [ASA] Allergy Unknown AGITATION Verified 05/07/21 10:50 trazodone [TRAZODONE] AdvReac Unknown HYPER Verified 05/07/21 10:50 Active Medications: Current Medications Pharmacy Consult (Consult Rx Perform Med Rec) 1 each MISCELLANE ONCE PRN PRN Reason: Consult order Home Medications Medication Instructions Recorded Confirmed Last Taken Type benztropine 2 mg tablet 2 mg PO BID 02/16/21 07/27/21 Unknown History docusate sodium 100 mg capsule 100 mg PO BID 02/16/21 07/27/21 Unknown History elviteg 150 mg-cob 150 mg-emtricit 1 tab PO DAILY 02/16/21 07/27/21 Unknown History 200 mg-tenofo alafenam 10 mg tablet (Genvoya) insulin aspar prot-insulin aspart 38 unit subcut BEDTIME 02/16/21 07/27/21 Unknown History 100 unit/mL (70-30) subcutaneous pen (Novolog Mix 70-30FlexPen U-100) lithium carbonate 300 mg tablet 900 mg PO DAILY 02/16/21 07/27/21 Unknown History pen needle, diabetic 32 gauge x #50 ea 02/16/21 03/05/21 Unknown History (BD Viv 2nd Gen Pen Needle) pravastatin 40 mg tablet 40 mg PO BEDTIME 02/16/21 07/27/21 Unknown History propranolol 20 mg tablet 20 mg PO DAILY 02/16/21 07/27/21 Unknown History risperidone 3 mg tablet 6 mg PO BEDTIME 02/16/21 07/27/21 Unknown History insulin aspar prot-insulin aspart 52 unit subcut DAILY 03/05/21 07/27/21 Unknown History 100 unit/mL (70-30) subcutaneous pen (Novolog Mix 70-30FlexPen U-100) omeprazole 20 mg capsule,delayed 1 cap PO DAILY 03/05/21 07/27/21 Unknown History release naproxen 500 mg tablet 1 tab PO BID PRN Pain 06/15/21 07/27/21 Unknown History gpbztujz-vim-sxijb acid 0.4 1 tab PO DAILY 07/27/21 07/27/21 Unknown History mg-lycopene 300 mcg-lutein 250 mcg tablet (Cerovite Senior) pregabalin 100 mg capsule 1 cap PO BID 07/27/21 07/27/21 Unknown History valbenazine 80 mg capsule 80 mg PO DAILY 07/27/21 07/27/21 Unknown History (Alexis) Physical Exam Vital Signs: Vital Signs: Last Vital Signs Temp 98.7 F 07/27/21 14:50 Pulse 76 07/27/21 14:50 Resp 18 07/27/21 14:50 BP 127/66 07/27/21 14:50 Pulse Ox 97 07/27/21 14:50 O2 Del Method 07/27/21 14:50 BMI result Body Mass Index 18.4 Const: General: comfortable and no acute distress Orientation/consciousness: patient oriented x3 Neck: Neck: Yes no lymphadenopathy Resp: Auscultation: clear to auscultation bilaterally Cardio: Rhythm: regular rhythm GI: Palpation (GI): Soft to palpation, nontender and no guarding Neuro: General: patient oriented x3 Extrem: Other: Distal pulses are palpable Left foot - ulcer laterally, clean, near the base of the 5th metatarsal, about 3.5 cm in widest diameter, superficial, no cellulitis Right foot - ulcer medial to plantar, at the base of the 1st metatarsal, with a thick foul-smelling eschar, measuring about 3.5 cm in widest diameter as well; on the lateral aspect of the right toe is note of a very thick hard callus Results Labs Result diagrams: 07/28/21 06:45 07/28/21 06:45 Labs: Abnormal lab results 07/27/21 Range/Units 12:19 WBC 11.5 H (4.8-10.8) X10*3/uL RBC 4.26 L (4.60-5.80) X10*6/uL Hgb 12.8 L (14.0-18.0) g/dl Hct 37.9 L (42.0-52.0) % Short CBC 07/27/21 Range/Units 12:19 WBC 11.5 H (4.8-10.8) X10*3/uL Hgb 12.8 L (14.0-18.0) g/dl Hct 37.9 L (42.0-52.0) % Plt Count 212 D (160-400) X10*3/uL All other labs normal. Assessment and Plan (1) Diabetic foot ulcers: Status: Acute He has an MRI from February, showing arthritis of the 5th metatarsal head on the left foot. Examination today shows an ulcer on the lateral aspect of the left foot as described above which is clean at this point. On the right foot however medially at the base of the 1st metatarsal is note of a large ulcer with a thick, foul-smelling eschar. This measured about 3.5 cm in diameter. I therefore proceeded to do sharp excisional debridement of the thick eschar. This seemed to involve the full-thickness of the skin and part of subcutaneous layer. I used fine scissors to achieve this. There was note of significant bleeding after debridement suggestive of good blood supply of the residual tissue. The excised area was about 3.5 x 3 cm in surface area. I also sharply debrided a thick callus on the lateral aspect of the right foot. I applied dressings and wrapped the foot with Kerlix roll. I will do his dressing change again tomorrow and he may need further debridement. Procedures Date of Service Date of Service: 07/27/21
[2021-07-27 16:31] LABS: Lactic Acid 0.7 mmol/L (0.5-2.0)
[2021-07-27 16:35] LABS: COVID-19 Test Negative (Negative); IDNOW Serial# 55D5AD1C
[2021-07-27 16:36] LABS: Alanine Aminotransferase 22 U/L (0-40); Albumin Level 4.2 g/dL (3.5-5.0); Alkaline Phosphatase 93 U/L (39-117); Anion Gap 10 (12-20); Aspartate Amino Transferase 18 U/L (5-37); Bilirubin Direct 0.2 mg/dL (0.0-0.5); Bilirubin Total 0.3 mg/dL (0.0-1.0); Blood Urea Nitrogen 16 mg/dL (9-16); C Reactive Protein 1.63 mg/dL (< or = 0.50); Calcium 9.9 mg/dL (8.4-10.2); Carbon Dioxide 26 mmol/L (22-29); Chloride 108 mmol/L (96-108); Creatinine Clr Calc Pharmacy 51.6; Estimated Glomerular Filt Rate 58; Glucose Random 133 mg/dL (60-115); Sodium 140 mmol/L (135-145); Total Protein 7.3 g/dL (6.5-8.0)
[2021-07-27] MEDS: Piperacillin Sodium/Tazobactam 3.375 GM in 0.9 % Sodium Chloride 50 ML IV ×2 (16:46→22:39)
--- NOTE | 2021-07-27 16:53 | PHA.MEDREC ---
Pharmacy Consult ? Medication Reconciliation Pharmacy has completed the medication reconciliation. Pharmacy list compared to [facility] list, pregablin was increased to 100 mg bid as well as ingrezza (40 mg to 80 mg)
[2021-07-27 17:02] VITALS: BP 127/66; PULSE 82; RESP 16; TEMP 37.1; O2SAT 97
--- NOTE | 2021-07-27 17:04 | PC.NURSE ---
patient alert and orientated . lungs clear . no pain noted . skin warm dry . bilateral wounds on bottom of feet . wound on left foot small amount of yellow discharge noted , dressing changed . with nonstick and covered with cling . wound on right bottom of foot had dressing stuck needed to be cleansed with saline to be removed , area had a small amount of bleeding but is controlled now area covered with non stick and cling . patient aware of plan of care .
[2021-07-27 17:12] LABS: Erythrocyte Sedimentation Rate 70 MM/HR (0-15)
[2021-07-27 19:19] VITALS: BP 112/62; PULSE 77; RESP 16; TEMP 36.9; O2SAT 97
--- NOTE | 2021-07-27 19:20 | PM.IMHP ---
History of Present Illness Date of Service: 07/27/21 Chief Complaint: Bilateral foot diabetic wound requiring debridement 55-year-old male with a past medical history of hyperlipidemia, diabetes, HIV, hepatitis, BPH, erectile dysfunction, CKD stage 2, osteomyelitis of the left foot, tardive dyskinesia, mood disorder, bilateral diabetic foot wounds-follows with Wound Clinic sent from the wound clinic today with a chief complaint of bilateral foot wounds requiring surgical debridement. Patient denies any fever chills cough. Denies any chest pain or palpitations. Patient mentioned that he has been on insulin for left foot osteomyelitis. Denies any nausea vomiting or diarrhea. Denies any GI symptoms. Review of all other systems is negative except mentioned above ER course: Per ER team patient noted to have left foot chronic wound in the ball of the foot-callused over no signs of active infection, leak and no drainage,; right foot medial aspect ball of the foot flap noted elevation material; general surgery was consulted, Dr. Osman did a bedside debridement; patient was given IV Zosyn and admitted to the hospital for further management. [facility] Medical History BPH w urinary obs/LUTS Chronic prostatitis Erectile dysfunction due to arterial insufficiency Hepatitis HIV (human immunodeficiency virus infection) Osteomyelitis of left foot Urinary hesitancy Family History Father No problems noted. Mother No problems noted. Surgical History No pertinent past surgical history Social History Household Members: Other Housing: House Do you presently have visiting nurse or other home services: Yes Unable to assess alcohol history related to: Unknown Alcohol intake: former Patient Tobacco Use Status: Tobacco use Unknown Advance Directives: No Advance Directives Information Provided: No service: No Current occupational status: unemployed Meds Allergies Allergy/AdvReac Type Severity Reaction Status Date / Time acetaminophen [From TYLENOL] Allergy Unknown UNKNOWN Verified 05/07/21 10:50 aspirin [ASA] Allergy Unknown AGITATION Verified 05/07/21 10:50 trazodone [TRAZODONE] AdvReac Unknown HYPER Verified 05/07/21 10:50 Active Medications: Current Medications Dextrose (Dextrose 50 % 25 Gm/50 Ml Syringe) 25 gm IVPUSH Q15M PRN; Protocol PRN Reason: per Hypoglycemia Standing Ord. Enoxaparin Sodium (Enoxaparin Sodium 40 Mg/0.4 Ml Syringe) 40 mg SUBCUT Q24H [facility] Glucose (Glucose Gel 15 Gm Gel..Gram.) 15 gm PO Q15M PRN; Protocol PRN Reason: per Hypoglycemia Standing Ord. Hydromorphone HCl (Hydromorphone Hcl 1 Mg/Ml Syringe) 0.5 mg IVPUSH Q4H PRN; Protocol PRN Reason: Pain, Severe (Pain Scale 7-10) Vancomycin HCl 1,000 mg/ (Sodium Chloride) 270 mls @ 270 mls/hr IV Q12H [facility] Piperacillin Sod/Tazobactam (Sod 3.375 gm/ Sodium Chloride) 50 mls @ 100 mls/hr IV Q8H [facility] Insulin Glargine (Insulin Glargine,Hum.Rec.Anlog 100 Unit/Ml 10 Ml Vial) 30 unit SUBCUT BEDTIME [facility] Insulin Human Lispro (Insulin Lispro 100 Unit/Ml 3 Ml Vial) 0 unit SUBCUT QIDACHS [facility]; Protocol Melatonin (Melatonin 3 Mg Tablet) 6 mg PO BEDTIME PRN PRN Reason: Insomnia Pharmacy Consult (Consult Rx Perform Med Rec) 1 each MISCELLANE ONCE PRN PRN Reason: Consult order Pharmacy Consult (Consult Rx Vancomycin Dosing) 1 each MISCELLANE DAILY PRN PRN Reason: Consult order Senna (Sennosides 8.6 Mg Tablet) 17.2 mg PO BEDTIME PRN PRN Reason: Constipation Sodium Chloride (0.9 % Sodium Chloride Flush 3 Ml Syringe) 3 ml IVFLUSH QSHIFT [facility] Home Medications Medication Instructions Recorded Confirmed Last Taken Type benztropine 2 mg tablet 2 mg PO BID 02/16/21 07/27/21 Unknown History docusate sodium 100 mg capsule 100 mg PO BID 02/16/21 07/27/21 Unknown History elviteg 150 mg-cob 150 mg-emtricit 1 tab PO DAILY 02/16/21 07/27/21 Unknown History 200 mg-tenofo alafenam 10 mg tablet (Genvoya) insulin aspar prot-insulin aspart 38 unit subcut BEDTIME 02/16/21 07/27/21 Unknown History 100 unit/mL (70-30) subcutaneous pen (Novolog Mix 70-30FlexPen U-100) lithium carbonate 300 mg tablet 900 mg PO DAILY 02/16/21 07/27/21 Unknown History pen needle, diabetic 32 gauge x #50 ea 02/16/21 03/05/21 Unknown History (BD Viv 2nd Gen Pen Needle) pravastatin 40 mg tablet 40 mg PO BEDTIME 02/16/21 07/27/21 Unknown History propranolol 20 mg tablet 20 mg PO DAILY 02/16/21 07/27/21 Unknown History risperidone 3 mg tablet 6 mg PO BEDTIME 02/16/21 07/27/21 Unknown History insulin aspar prot-insulin aspart 52 unit subcut DAILY 03/05/21 07/27/21 Unknown History 100 unit/mL (70-30) subcutaneous pen (Novolog Mix 70-30FlexPen U-100) omeprazole 20 mg capsule,delayed 1 cap PO DAILY 03/05/21 07/27/21 Unknown History release naproxen 500 mg tablet 1 tab PO BID PRN Pain 06/15/21 07/27/21 Unknown History mkfaquib-hic-hmfdy acid 0.4 1 tab PO DAILY 07/27/21 07/27/21 Unknown History mg-lycopene 300 mcg-lutein 250 mcg tablet (Cerovite Senior) pregabalin 100 mg capsule 1 cap PO BID 07/27/21 07/27/21 Unknown History valbenazine 80 mg capsule 80 mg PO DAILY 07/27/21 07/27/21 Unknown History (Ingrezza) Physical Exam Vital Signs and Narrative: Vital Signs: Last Vital Signs Temp 98.7 F 07/27/21 17:02 Pulse 82 07/27/21 17:02 Resp 16 07/27/21 17:02 BP 127/66 07/27/21 17:02 Pulse Ox 97 07/27/21 17:02 O2 Del Method 07/27/21 17:02 BMI result Body Mass Index 18.4 Gen: Appears be in no acute distress HEENT: NCAT, Moist mucosa. Pulmonary: Vesicular breath sounds, fair air entry CVS: Normal S1-S2 Abdomen: BS+, Soft, Nontender Extremities: Warm well perfused; left foot wound appears chronic; no discharge; no surrounding erythema; right foot medial aspect has wound status post debridement. Neuro: Alert and awake. Results Labs CBC and Chem 7: 07/27/21 12:19 07/27/21 16:04 Labs: Laboratory Results - last 24 hr 07/27/21 07/27/21 07/27/21 12:19 12:19 16:03 MCV 89.0 MCH 30.0 MCHC 33.8 RDW 12.0 Plt Count 212 D MPV 10.2 Absolute Nucleated RBC 0.000 Nucleated RBC % (auto) 0.0 ESR 70 H Anion Gap Estim Creat Clear Calc Estimated GFR Random Glucose Lactic Acid Calcium Total Bilirubin Direct Bilirubin AST ALT Alkaline Phosphatase C-Reactive Protein B-Natriuretic Peptide 16 Total Protein Albumin COVID-19 ([facility]) COVID-19 Clin Com 07/27/21 07/27/21 07/27/21 16:03 16:04 16:08 MCV MCH MCHC RDW Plt Count MPV Absolute Nucleated RBC Nucleated RBC % (auto) ESR Anion Gap 10 L Estim Creat Clear Calc 51.6 Estimated GFR 58 Random Glucose 133 H Lactic Acid 0.7 Calcium 9.9 D Total Bilirubin 0.3 Direct Bilirubin 0.2 AST 18 ALT 22 Alkaline Phosphatase 93 C-Reactive Protein 1.63 H B-Natriuretic Peptide Total Protein 7.3 Albumin 4.2 COVID-19 ([facility]) Negative COVID-19 Clin Com See Note Imaging Radiologist's Impressions: Impressions Foot X-Ray 07/27/21 16:18 IMPRESSION: Soft tissue swelling adjacent to the fifth metatarsal head and fifth MTP joint. Question osteomyelitis of the proximal phalanx of the fifth toe at the MTP joint. Large calcaneal spurs. Foot X-Ray 07/27/21 16:18 IMPRESSION: 1. Plantar soft tissue wound and swelling without overt underlying osteomyelitis. 2. Degenerative changes as detailed above without overt acute abnormality. Assessment and Plan (1) Diabetic foot ulcers: Status: Acute Plan 55-year-old male with a past medical history of hyperlipidemia, diabetes, HIV, hepatitis, BPH, erectile dysfunction, CKD stage 2, osteomyelitis of the left foot, tardive dyskinesia, mood disorder, bilateral diabetic foot wounds-follows with Wound Clinic sent from the wound clinic today with a chief complaint of bilateral foot wounds requiring surgical debridement. Diabetic foot infection/bilateral foot wounds: Status post debridement in the ER. Continue IV vancomycin and Zosyn General surgery follow-up Will also consult ID for further recommendations Patient was on penicillin as outpatient for chronic osteomyelitis of the left foot. Right foot x-ray showed no evidence of osteomyelitis, noted chronic degenerative changes. Left foot x-ray showed question osteomyelitis of the proximal phalanx of the 5th toe at the MTP joint and calcaneal spurs. History of diabetes: Hold home insulin regimen. Will give the patient on Lantus 30 units at bedtime and insulin sliding scale. Monitor fingerstick glucose. History of BPH: Continue home finasteride, Flomax History of mood disorder/tardive dyskinesia: Continue home benztropine, propranolol, risperidone, Ingrezza, DPM History of HIV: Continue home general via DVT prophylaxis: Lovenox Code status: Full code Quality Stroke Does the patient have a stroke diagnosis?: No VTE Prior VTE?: No VTE Risk Level:: Medical - moderate - high VTE Device Contraindication: Treatment Not Indicated VTE Drug Contraindication: N/A - Med Ordered
--- NOTE | 2021-07-27 19:21 | PC.NURSE ---
Addendum entered by Love Curtis 07/28/21 00:13: report given to BI Goff Original Note: report received from BI Snell. pt is alert and oriented. resting in bed. no signs of acute distress notice. breathing equally unlabored
--- NOTE | 2021-07-27 19:48 | PHA.PROG ---
Admission Date/Time: July 27, 2021 19:15 Indication: osteo Weight in k.699 kg Adjusted body weight in K.1 kg [place] body weight in K.7 kg Obesity Dosing Indication % IBW: Serum Creatinine - Last 168 Hours 07/27/21 16:04 Creatinine 1.28 Estimated CrCl and GFR - Last 168 Hours 07/27/21 16:04 Estim Creat Clear Calc 51.6 Estimated GFR 58 Vancomycin Loading Dose: 1500 mg x 1 Current Vancomycin Dosing Regimen: 1250 mg q24h Vancomycin Monitoring using AUC goal of 400 - 600 range with trough as surrogate marker: predicted auc 526 Date and Time for next Vancomycin Level to be drawn: random level 07/29/21 @1800 before 3rd dose Pharmacist Comments on Vancomycin Plan: Vancomycin dosing will take advantage of [employer] system as a clinical decision support tool that uses Bayesian modeling to calculate individual patient's pharmacokinetic parameters and forecast the patient's drug concentration time course with the target goal AUC 24 range of 400 - 600 mg/L/hr.
--- NOTE | 2021-07-27 22:05 | MHC.CM.PN ---
CM attempted to meet with patient for d/c planning, but patient was sleeping soundly. Will attempt again when pt wakes. CM to follow for d/c needs.
[2021-07-27 22:09] LABS: Glucose, Whole Blood 170 mg/dL (60-115)
[2021-07-27] MEDS: risperiDONE 3 MG TABLET 6 MG PO (22:35)
[2021-07-27] MEDS: Pregabalin 100 MG CAPSULE PO (22:36)
[2021-07-27] MEDS: Tamsulosin HCL 0.4 MG CAPSULE PO (22:36)
[2021-07-27] MEDS: Pravastatin Sodium 40 MG TABLET PO (22:36)
[2021-07-27] MEDS: Benztropine Mesylate 1 MG TABLET 2 MG PO (22:36)
[2021-07-27] MEDS: Enoxaparin Sodium 40 MG/0.4 ML SYRINGE SUBCUT (22:36)
[2021-07-27] MEDS: Docusate Sodium 100 MG CAPSULE PO (22:37)
[2021-07-27] MEDS: Insulin Lispro 100 UNIT/ML 3 ML VIAL SUBCUT (22:37)
[2021-07-27] MEDS: Insulin Glargine,Hum.rec.anlog 100 UNIT/ML 10 ML VIAL 30 UNIT SUBCUT (22:37)
[2021-07-27] MEDS: vancomycin HCL 1,500 MG in 0.9 % Sodium Chloride 500 ML 333.33 MG IV (23:35)
[2021-07-28] VITALS: BP 105/67; PULSE 83; RESP 15; TEMP 36.7; O2SAT 97
[2021-07-28] MEDS: 0.9 % Sodium Chloride Flush 3 ML SYRINGE IVFLUSH ×4 (01:34→21:14)
[2021-07-28] MEDS: Piperacillin Sodium/Tazobactam 3.375 GM in 0.9 % Sodium Chloride 50 ML IV ×4 (03:32→22:31)
[2021-07-28 07:28] LABS: MANUAL DIFF FLAG NO
[2021-07-28 07:37] LABS: Basophils Percent Auto 0.3 % (0-2); Eosinophils Absolute Auto 0.3 X10*3/uL (0.0-0.4); Eosinophils Percent Auto 2.5 % (0-4); Hematocrit 34.8 % (42.0-52.0); Hemoglobin 11.8 g/dl (14.0-18.0); Imm Gran Abs Auto 0.05 X10*3/uL (0.00-0.03); Imm Gran Pct Auto 0.5 % (0.0-0.4); Lymphocytes Absolute Auto 1.6 X10*3/uL (1.2-4.9); Lymphocytes Percent Auto 16.1 % (20-40); Mean Corpuscular HGB Conc 33.9 g/dl (31.0-36.0); Mean Corpuscular Hemoglobin 30.1 pg (27.0-33.0); Mean Corpuscular Volume 88.8 fL (80.0-98.0); Mean Platelet Volume 10.7 fL (9.4-12.4); Monocytes Absolute Auto 0.8 X10*3/uL (0.1-1.2); Neutrophils Absolute Auto 7.4 x10*3/uL (2.0-8.3); Neutrophils Percent Auto 72.6 % (45-73); Platelet Count 192 X10*3/uL (160-400); Red Blood Count 3.92 X10*6/uL (4.60-5.80); White Blood Count 10.2 X10*3/uL (4.8-10.8)
[2021-07-28 07:45] LABS: Creatinine Clr Calc Pharmacy 57.5; Estimated Glomerular Filt Rate > 60
[2021-07-28 07:45] LABS: Glucose, Whole Blood 135 mg/dL (60-115)
[2021-07-28 07:51] LABS: Anion Gap 10 (12-20); Blood Urea Nitrogen 17 mg/dL (9-16); Calcium 9.4 mg/dL (8.4-10.2); Carbon Dioxide 25 mmol/L (22-29); Chloride 110 mmol/L (96-108); Estimated Glomerular Filt Rate > 60; Glucose Random 129 mg/dL (60-115); Potassium 3.9 mmol/L (3.3-5.1); Sodium 141 mmol/L (135-145)
[2021-07-28 08:00] VITALS: BP 113/70; PULSE 75; RESP 18; TEMP 37.1; O2SAT 99
[2021-07-28] MEDS: Propranolol HCL 20 MG TABLET PO (08:28)
[2021-07-28] MEDS: Docusate Sodium 100 MG CAPSULE PO ×2 (08:28→21:14)
[2021-07-28] MEDS: Pregabalin 100 MG CAPSULE PO ×2 (08:28→21:13)
[2021-07-28] MEDS: Multivitamin TABLET 1 TAB PO (08:29)
[2021-07-28] MEDS: Benztropine Mesylate 1 MG TABLET 2 MG PO ×2 (08:29→21:13)
[2021-07-28] MEDS: Lithium Carbonate 300 MG CAPSULE 900 MG PO (08:29)
[2021-07-28] MEDS: Finasteride 5 MG TABLET PO (08:29)
--- NOTE | 2021-07-28 09:16 | P.PNGS_ITS ---
Subjective Subjective Date of Service: 07/28/21 Interval history: Has no new complaints Says he feels well Physical Exam Vital Signs: Vital Signs: Last Vital Signs Temp 98.8 F 07/28/21 08:00 Pulse 75 07/28/21 08:00 Resp 18 07/28/21 08:00 BP 113/70 07/28/21 08:00 Pulse Ox 99 07/28/21 08:00 O2 Del Method 07/28/21 08:00 BMI result Body Mass Index 18.4 Const: General: comfortable and no acute distress Resp: Effort & Inspection: normal respiratory effort Cardio: Rate: regular rate GI: Palpation (GI): Soft to palpation and nontender Extrem: Other: Right foot - debrided area on the plantar aspect medially appears much better, cellulitis, thick callus on the lateral aspect seen Left foot - superficial ulcer on the lateral aspect clean, no pus Objective Data Active Medications Benztropine Mesylate (Benztropine Mesylate 1 Mg Tablet) 2 mg PO BID [facility] Last Admin: 07/28/21 08:29 Dose: 2 mg Documented By: SUSI Dextrose (Dextrose 50 % 25 Gm/50 Ml Syringe) 25 gm IVPUSH Q15M PRN; Protocol PRN Reason: per Hypoglycemia Standing Ord. Docusate Sodium (Docusate Sodium 100 Mg Capsule) 100 mg PO BID [facility] Last Admin: 07/28/21 08:28 Dose: 100 mg Documented By: SUSI Enoxaparin Sodium (Enoxaparin Sodium 40 Mg/0.4 Ml Syringe) 40 mg SUBCUT Q24H [facility] Last Admin: 07/27/21 22:36 Dose: 40 mg Documented By: BIBI-CHAITANYAICL Finasteride (Finasteride 5 Mg Tablet) 5 mg PO DAILY [facility] Last Admin: 07/28/21 08:29 Dose: 5 mg Documented By: SUSI Glucose (Glucose Gel 15 Gm Gel..Gram.) 15 gm PO Q15M PRN; Protocol PRN Reason: per Hypoglycemia Standing Ord. Hydromorphone HCl (Hydromorphone Hcl 0.5 Mg/0.5 Ml Syringe) 0.5 mg IVPUSH Q4H PRN; Protocol PRN Reason: Pain, Severe (Pain Scale 7-10) Piperacillin Sod/Tazobactam (Sod 3.375 gm/ Sodium Chloride) 50 mls @ 100 mls/hr IV Q6H [facility] Last Infusion: 07/28/21 04:31 Dose: 0 mls/hr Documented By: HARI Vancomycin HCl 1,250 mg/ (Sodium Chloride) 250 mls @ 166.667 mls/hr IV Q24H [facility] Insulin Glargine (Insulin Glargine,Hum.Rec.Anlog 100 Unit/Ml 10 Ml Vial) 30 unit SUBCUT BEDTIME [facility] Last Admin: 07/27/21 22:37 Dose: 30 unit Documented By: BIBI-CHAITANYAICL Insulin Human Lispro (Insulin Lispro 100 Unit/Ml 3 Ml Vial) 0 unit SUBCUT QIDACHS [facility]; Protocol Last Admin: 07/28/21 08:21 Dose: Not Given Documented By: SUSI Non-Admin Reason: No Insulin Coverage [place] Carbonate ([place] Carbonate 300 Mg Capsule) 900 mg PO DAILY [facility] Last Admin: 07/28/21 08:29 Dose: 900 mg Documented By: SUSI Melatonin (Melatonin 3 Mg Tablet) 6 mg PO BEDTIME PRN PRN Reason: Insomnia Multivitamins/Vitamin C (Multivitamin Tablet) 1 tab PO DAILY [facility] Last Admin: 07/28/21 08:29 Dose: 1 tab Documented By: SUSI Non-Formulary Medication (Liauxll-Olb-Bjihl-Tenof Alafen [Genvoya]) 1 tab PO DAILY [facility] Non-Formulary Medication (Valbenazine [Ingrezza]) 80 mg PO DAILY [facility] Omeprazole (Omeprazole 20 Mg Capsule.Dr) 20 mg PO DAILY@0630 [facility] Last Admin: 07/28/21 05:32 Dose: Not Given Documented By: HARI Non-Admin Reason: Patient Refused Pharmacy Consult (Consult Rx Perform Med Rec) 1 each MISCELLANE ONCE PRN PRN Reason: Consult order Pharmacy Consult (Consult Rx Vancomycin Dosing) 1 each MISCELLANE DAILY PRN PRN Reason: Consult order Pravastatin Sodium (Pravastatin Sodium 40 Mg Tablet) 40 mg PO BEDTIME [facility] Last Admin: 07/27/21 22:36 Dose: 40 mg Documented By: BIBI-CHAITANYAICL Pregabalin (Pregabalin 100 Mg Capsule) 100 mg PO BID [facility] Last Admin: 07/28/21 08:28 Dose: 100 mg Documented By: SUSI Propranolol HCl (Propranolol Hcl 20 Mg Tablet) 20 mg PO DAILY [facility]; Protocol Last Admin: 07/28/21 08:28 Dose: 20 mg Documented By: SUSI Risperidone (Risperidone 3 Mg Tablet) 6 mg PO BEDTIME [facility] Last Admin: 07/27/21 22:35 Dose: 6 mg Documented By: BIBI-ANICL Senna (Sennosides 8.6 Mg Tablet) 17.2 mg PO BEDTIME PRN PRN Reason: Constipation Sodium Chloride (0.9 % Sodium Chloride Flush 3 Ml Syringe) 3 ml IVFLUSH QSHIFT [facility] Last Admin: 07/28/21 08:28 Dose: 3 ml Documented By: SUSI Tamsulosin HCl (Tamsulosin Hcl 0.4 Mg Capsule) 0.4 mg PO BEDTIME [facility] Last Admin: 07/27/21 22:36 Dose: 0.4 mg Documented By: BIBI-ANICL Labs CBC & Chem 7: 07/28/21 06:45 07/28/21 06:45 Labs: Laboratory Results - last 24 hr 07/27/21 07/27/21 07/27/21 12:19 12:19 16:03 MCV 89.0 MCH 30.0 MCHC 33.8 RDW 12.0 Plt Count 212 D MPV 10.2 Immature Gran % (Auto) Neut % (Auto) Lymph % (Auto) [place] % (Auto) Eos % (Auto) Baso % (Auto) Lymph # (Auto) [place] # (Auto) Eos # (Auto) Baso # (Auto) Abs Immat Gran (auto) Absolute Neuts (auto) Absolute Nucleated RBC 0.000 Nucleated RBC % (auto) 0.0 ESR 70 H Anion Gap Estim Creat Clear Calc Estimated GFR POC Glucose Random Glucose Lactic Acid Calcium Total Bilirubin Direct Bilirubin AST ALT Alkaline Phosphatase C-Reactive Protein B-Natriuretic Peptide 16 Total Protein Albumin COVID-19 ([facility]) COVID-19 Clin Com 07/27/21 07/27/21 07/27/21 16:03 16:04 16:08 MCV MCH MCHC RDW Plt Count MPV Immature Gran % (Auto) Neut % (Auto) Lymph % (Auto) [place] % (Auto) Eos % (Auto) Baso % (Auto) Lymph # (Auto) [place] # (Auto) Eos # (Auto) Baso # (Auto) Abs Immat Gran (auto) Absolute Neuts (auto) Absolute Nucleated RBC Nucleated RBC % (auto) ESR Anion Gap 10 L Estim Creat Clear Calc 51.6 Estimated GFR 58 POC Glucose Random Glucose 133 H Lactic Acid 0.7 Calcium 9.9 D Total Bilirubin 0.3 Direct Bilirubin 0.2 AST 18 ALT 22 Alkaline Phosphatase 93 C-Reactive Protein 1.63 H B-Natriuretic Peptide Total Protein 7.3 Albumin 4.2 COVID-19 ([facility]) Negative COVID-19 Clin Com See Note 07/27/21 07/28/21 07/28/21 22:01 06:45 06:45 MCV 88.8 MCH 30.1 MCHC 33.9 RDW 12.0 Plt Count 192 MPV 10.7 Immature Gran % (Auto) 0.5 H Neut % (Auto) 72.6 Lymph % (Auto) 16.1 L [place] % (Auto) 8.0 Eos % (Auto) 2.5 Baso % (Auto) 0.3 Lymph # (Auto) 1.6 [place] # (Auto) 0.8 Eos # (Auto) 0.3 Baso # (Auto) 0.0 Abs Immat Gran (auto) 0.05 H Absolute Neuts (auto) 7.4 Absolute Nucleated RBC 0.000 Nucleated RBC % (auto) 0.0 ESR Anion Gap 10 L Estim Creat Clear Calc 57.0 Estimated GFR > 60 POC Glucose 170 H Random Glucose 129 H Lactic Acid Calcium 9.4 Total Bilirubin Direct Bilirubin AST ALT Alkaline Phosphatase C-Reactive Protein B-Natriuretic Peptide Total Protein Albumin COVID-19 ([facility]) COVID-19 Clin Com 07/28/21 07/28/21 06:45 07:29 MCV MCH MCHC RDW Plt Count MPV Immature Gran % (Auto) Neut % (Auto) Lymph % (Auto) [place] % (Auto) Eos % (Auto) Baso % (Auto) Lymph # (Auto) [place] # (Auto) Eos # (Auto) Baso # (Auto) Abs Immat Gran (auto) Absolute Neuts (auto) Absolute Nucleated RBC Nucleated RBC % (auto) ESR Anion Gap Estim Creat Clear Calc 57.5 Estimated GFR > 60 POC Glucose 135 H Random Glucose Lactic Acid Calcium Total Bilirubin Direct Bilirubin AST ALT Alkaline Phosphatase C-Reactive Protein B-Natriuretic Peptide Total Protein Albumin COVID-19 ([facility]) COVID-19 Clin Com Procedures Date of Service Date of Service: 07/28/21 Progress Note: A&P Assessment and plan (1) Diabetic foot ulcers: Status: Acute Assessment and Plan: He had a foot ulcer with a thick eschar which was foul-smelling. I had sharply this sharply debrided this yesterday I have changed dressings today Wet to dry applied on this debrided ulcer Will need to continue wound care Both ulcers clean If discharged, he will need to follow-up with the [facility]ound [facility]. (2) Eschar of foot: Status: Acute Time Spent With Patient Time: Total time spent is greater than 50% in coordination of care (as documented) at patient's floor/unit and/or counseling patient: Quality Stroke Does the patient have a stroke diagnosis?: No VTE Prior VTE?: No VTE Risk Level:: Medical - moderate - high VTE Device Contraindication: Treatment Not Indicated VTE Drug Contraindication: N/A - Med Ordered
--- NOTE | 2021-07-28 10:06 | HE.PHANOTE ---
SHARMILA LARA CONTINUE CURRENT DOSE. NEXT TROUGH 07/29 @1800
[2021-07-28 11:05] VITALS: BMI 18.4
--- NOTE | 2021-07-28 11:21 | MHC.CM.PN ---
met with pt who is being dcd today to [facility]
[2021-07-28 11:55] VITALS: BP 100/71; PULSE 86; RESP 18; TEMP 36.7; O2SAT 98
[2021-07-28 11:58] LABS: Glucose, Whole Blood 191 mg/dL (60-115)
[2021-07-28] MEDS: Insulin Lispro 100 UNIT/ML 3 ML VIAL SUBCUT ×2 (12:01→21:13)
--- NOTE | 2021-07-28 12:32 | MHC.CM.PN ---
pt from [facility] ,he is vax x 3 contact at [facility] is nidhi freeman [phone] senior software engineering manager [facility] will transport pt when dcd call [phone] pt was cominbg to [facility] and was active with [facility] 3 x weekly ,amiid vax x 3 dc plan return to [facility] with [facility] and [facility]
--- NOTE | 2021-07-28 13:11 | P.CNID_ITS ---
History of Present Illness Data of Consult Service Date: 07/28/21 Requesting physician: Viraj Willis Primary Care Provider: Shell Lopez MD HPI Reason for consult: bilateral foot discomfort He presents to hospital with discomfort bilateral feet. He has no fever or chills. XRays show chronic osteomyelitis. He has been taking HIV medication and has been controlled. Review of Systems Review of Systems: Yes all other systems are reviewed and are negative PMFSH Past Medical History Medical History BPH w urinary obs/LUTS Chronic prostatitis Erectile dysfunction due to arterial insufficiency Hepatitis HIV (human immunodeficiency virus infection) Osteomyelitis of left foot Urinary hesitancy Family History Family History Father No problems noted. Mother No problems noted. Family history: reviewed and not pertinent Surgical History Surgical History No pertinent past surgical history Social History Social History Household Members: Unknown / Unable to assess Housing: House Do you presently have visiting nurse or other home services: Yes Unable to assess alcohol history related to: Refusing to respond Alcohol intake: former Patient Tobacco Use Status: Tobacco use Unknown Use of substances other than those prescribed or required for medical reasons: Refusing to respond Advance Directives: No Advance Directives Information Provided: No Do you have thoughts of harming others: None Do you have a plan to hurt others: No Plan Recently lost weight without trying: Unsure service: No Current occupational status: unemployed Meds Allergies Allergy/AdvReac Type Severity Reaction Status Date / Time acetaminophen [From TYLENOL] Allergy Unknown UNKNOWN Verified 05/07/21 10:50 aspirin [ASA] Allergy Unknown AGITATION Verified 05/07/21 10:50 trazodone [TRAZODONE] AdvReac Unknown HYPER Verified 05/07/21 10:50 Active Medications: Current Medications Benztropine Mesylate (Benztropine Mesylate 1 Mg Tablet) 2 mg PO BID [facility] Last Admin: 07/28/21 08:29 Dose: 2 mg Dextrose (Dextrose 50 % 25 Gm/50 Ml Syringe) 25 gm IVPUSH Q15M PRN; Protocol PRN Reason: per Hypoglycemia Standing Ord. Docusate Sodium (Docusate Sodium 100 Mg Capsule) 100 mg PO BID [facility] Last Admin: 07/28/21 08:28 Dose: 100 mg Enoxaparin Sodium (Enoxaparin Sodium 40 Mg/0.4 Ml Syringe) 40 mg SUBCUT Q24H [facility] Last Admin: 07/27/21 22:36 Dose: 40 mg Finasteride (Finasteride 5 Mg Tablet) 5 mg PO DAILY [facility] Last Admin: 07/28/21 08:29 Dose: 5 mg Glucose (Glucose Gel 15 Gm Gel..Gram.) 15 gm PO Q15M PRN; Protocol PRN Reason: per Hypoglycemia Standing Ord. Hydromorphone HCl (Hydromorphone Hcl 0.5 Mg/0.5 Ml Syringe) 0.5 mg IVPUSH Q4H PRN; Protocol PRN Reason: Pain, Severe (Pain Scale 7-10) Piperacillin Sod/Tazobactam (Sod 3.375 gm/ Sodium Chloride) 50 mls @ 100 mls/hr IV Q6H [facility] Last Infusion: 07/28/21 10:20 Dose: Infused Vancomycin HCl 1,250 mg/ (Sodium Chloride) 250 mls @ 166.667 mls/hr IV Q24H [facility] Insulin Glargine (Insulin Glargine,Hum.Rec.Anlog 100 Unit/Ml 10 Ml Vial) 30 unit SUBCUT BEDTIME [facility] Last Admin: 07/27/21 22:37 Dose: 30 unit Insulin Human Lispro (Insulin Lispro 100 Unit/Ml 3 Ml Vial) 0 unit SUBCUT QIDACHS [facility]; Protocol Last Admin: 07/28/21 12:01 Dose: 2 unit [place] Carbonate ([place] Carbonate 300 Mg Capsule) 900 mg PO DAILY [facility] Last Admin: 07/28/21 08:29 Dose: 900 mg Melatonin (Melatonin 3 Mg Tablet) 6 mg PO BEDTIME PRN PRN Reason: Insomnia Multivitamins/Vitamin C (Multivitamin Tablet) 1 tab PO DAILY [facility] Last Admin: 07/28/21 08:29 Dose: 1 tab Non-Formulary Medication (Thnblvz-Nqf-Anyom-Tenof Alafen [Genvoya]) 1 tab PO DAILY [facility] Non-Formulary Medication (Valbenazine [Ingrezza]) 80 mg PO DAILY [facility] Omeprazole (Omeprazole 20 Mg Capsule.) 20 mg PO DAILY@0630 [facility] Last Admin: 07/28/21 05:32 Dose: Not Given Pharmacy Consult (Consult Rx Perform Med Rec) 1 each MISCELLANE ONCE PRN PRN Reason: Consult order Pharmacy Consult (Consult Rx Vancomycin Dosing) 1 each MISCELLANE DAILY PRN PRN Reason: Consult order Pravastatin Sodium (Pravastatin Sodium 40 Mg Tablet) 40 mg PO BEDTIME [facility] Last Admin: 07/27/21 22:36 Dose: 40 mg Pregabalin (Pregabalin 100 Mg Capsule) 100 mg PO BID [facility] Last Admin: 07/28/21 08:28 Dose: 100 mg Propranolol HCl (Propranolol Hcl 20 Mg Tablet) 20 mg PO DAILY [facility]; Protocol Last Admin: 07/28/21 08:28 Dose: 20 mg Risperidone (Risperidone 3 Mg Tablet) 6 mg PO BEDTIME [facility] Last Admin: 07/27/21 22:35 Dose: 6 mg Senna (Sennosides 8.6 Mg Tablet) 17.2 mg PO BEDTIME PRN PRN Reason: Constipation Sodium Chloride (0.9 % Sodium Chloride Flush 3 Ml Syringe) 3 ml IVFLUSH QSHIFT [facility] Last Admin: 07/28/21 08:28 Dose: 3 ml Tamsulosin HCl (Tamsulosin Hcl 0.4 Mg Capsule) 0.4 mg PO BEDTIME [facility] Last Admin: 07/27/21 22:36 Dose: 0.4 mg Home Medications Medication Instructions Recorded Confirmed Last Taken Type benztropine 2 mg tablet 2 mg PO BID 02/16/21 07/27/21 Unknown History docusate sodium 100 mg capsule 100 mg PO BID 02/16/21 07/27/21 Unknown History elviteg 150 mg-cob 150 mg-emtricit 1 tab PO DAILY 02/16/21 07/27/21 Unknown History 200 mg-tenofo alafenam 10 mg tablet (Genvoya) insulin aspar prot-insulin aspart 38 unit subcut BEDTIME 02/16/21 07/27/21 Unknown History 100 unit/mL (70-30) subcutaneous pen (Novolog Mix 70-30FlexPen U-100) lithium carbonate 300 mg tablet 900 mg PO DAILY 02/16/21 07/27/21 Unknown History pen needle, diabetic 32 gauge x #50 ea 02/16/21 03/05/21 Unknown History (BD Viv 2nd Gen Pen Needle) pravastatin 40 mg tablet 40 mg PO BEDTIME 02/16/21 07/27/21 Unknown History propranolol 20 mg tablet 20 mg PO DAILY 02/16/21 07/27/21 Unknown History risperidone 3 mg tablet 6 mg PO BEDTIME 02/16/21 07/27/21 Unknown History insulin aspar prot-insulin aspart 52 unit subcut DAILY 03/05/21 07/27/21 Unknown History 100 unit/mL (70-30) subcutaneous pen (Novolog Mix 70-30FlexPen U-100) omeprazole 20 mg capsule,delayed 1 cap PO DAILY 03/05/21 07/27/21 Unknown Hist ory release naproxen 500 mg tablet 1 tab PO BID PRN Pain 06/15/21 07/27/21 Unknown History ccdbywyi-qwp-eawkn acid 0.4 1 tab PO DAILY 07/27/21 07/27/21 Unknown History mg-lycopene 300 mcg-lutein 250 mcg tablet ([employer] Senior) pregabalin 100 mg capsule 1 cap PO BID 07/27/21 07/27/21 Unknown History valbenazine 80 mg capsule 80 mg PO DAILY 07/27/21 07/27/21 Unknown History ([facility]) Physical Exam Vital Signs: Vital Signs: Last Vital Signs Temp 98.1 F 07/28/21 11:55 Pulse 86 07/28/21 11:55 Resp 18 07/28/21 11:55 BP 100/71 07/28/21 11:55 Pulse Ox 98 07/28/21 11:55 O2 Del Method 07/28/21 11:55 BMI result Body Mass Index 18.4 Const: General: cooperative Eyes: General: appearance normal, both eyes and all related structures Resp: Effort & Inspection: normal respiratory effort Cardio: Rate: regular rate Rhythm: regular rhythm GI: Palpation (GI): Soft to palpation and nontender Extrem: Other: bilateral foot ulcers just debrided,no necrosis Results Labs CBC & Chem 7: 07/28/21 06:45 07/28/21 06:45 Labs: Short CBC 07/28/21 Range/Units 06:45 WBC 10.2 (4.8-10.8) X10*3/uL Hgb 11.8 L (14.0-18.0) g/dl Hct 34.8 L (42.0-52.0) % Plt Count 192 (160-400) X10*3/uL BMP 07/27/21 07/28/21 07/28/21 16:04 06:45 06:45 Sodium 140 141 Potassium 4.0 3.9 Chloride 108 110 H Carbon Dioxide 26 25 BUN 16 17 H Creatinine 1.28 1.16 1.15 Calcium 9.9 D 9.4 Liver Function 07/27/21 Range/Units 16:04 Total Bilirubin 0.3 (0.0-1.0) mg/dL Direct Bilirubin 0.2 (0.0-0.5) mg/dL AST 18 (5-37) U/L ALT 22 (0-40) U/L Alkaline Phosphatase 93 (39-117) U/L Albumin 4.2 (3.5-5.0) g/dL Assessment and Plan (1) Eschar of foot: Status: Acute (2) Diabetic foot ulcers: Status: Acute He has local inflammation and erythema legs around ulcers. He has said he has improving erythema. (3) Sepsis: Status: Acute Plan Continue antibiotics today. Tomorrow Augmentin for a week. Follow Wound Care Continue HIV medication,do not think current infection feet related to status.
--- NOTE | 2021-07-28 13:40 | HO.PM.IMPN ---
Subjective Subjective Date of Service: 07/28/21 Interval History: This history was taken in Amharic from the patient. denies foot pain denies fever/chills Review of Systems Review of Systems: Yes all other systems are reviewed and are negative Physical Exam Vital Signs: Vital Signs: Last Vital Signs Temp 98.1 F 07/28/21 11:55 Pulse 86 07/28/21 11:55 Resp 18 07/28/21 11:55 BP 100/71 07/28/21 11:55 Pulse Ox 98 07/28/21 11:55 O2 Del Method 07/28/21 11:55 BMI result Body Mass Index 18.4 Gen: in no acute distress HEENT: sclera anicteric, moist mucus membranes Neck: supple Lungs: clear to auscultation bilaterally Heart: regular rate and rhythm, no murmurs Abd: soft, non-tender, non-distended Ext: R plantar wound s/p debridement, L lateral ulcer clean Skin: warm/well-perfused Neuro: alert and oriented x3, no focal findings Psych: appropriate affect Objective Data Active Medications Benztropine Mesylate (Benztropine Mesylate 1 Mg Tablet) 2 mg PO BID [facility] Last Admin: 07/28/21 08:29 Dose: 2 mg Documented By: SUSI Dextrose (Dextrose 50 % 25 Gm/50 Ml Syringe) 25 gm IVPUSH Q15M PRN; Protocol PRN Reason: per Hypoglycemia Standing Ord. Docusate Sodium (Docusate Sodium 100 Mg Capsule) 100 mg PO BID [facility] Last Admin: 07/28/21 08:28 Dose: 100 mg Documented By: SUSI Enoxaparin Sodium (Enoxaparin Sodium 40 Mg/0.4 Ml Syringe) 40 mg SUBCUT Q24H [facility] Last Admin: 07/27/21 22:36 Dose: 40 mg Documented By: BIBI-ANICL Finasteride (Finasteride 5 Mg Tablet) 5 mg PO DAILY [facility] Last Admin: 07/28/21 08:29 Dose: 5 mg Documented By: SUSI Glucose (Glucose Gel 15 Gm Gel..Gram.) 15 gm PO Q15M PRN; Protocol PRN Reason: per Hypoglycemia Standing Ord. Hydromorphone HCl (Hydromorphone Hcl 0.5 Mg/0.5 Ml Syringe) 0.5 mg IVPUSH Q4H PRN; Protocol PRN Reason: Pain, Severe (Pain Scale 7-10) Piperacillin Sod/Tazobactam (Sod 3.375 gm/ Sodium Chloride) 50 mls @ 100 mls/hr IV Q6H [facility] Last Infusion: 07/28/21 10:20 Dose: 0 mls/hr Documented By: SUSI Vancomycin HCl 1,250 mg/ (Sodium Chloride) 250 mls @ 166.667 mls/hr IV Q24H [facility] Insulin Glargine (Insulin Glargine,Hum.Rec.Anlog 100 Unit/Ml 10 Ml Vial) 30 unit SUBCUT BEDTIME [facility] Last Admin: 07/27/21 22:37 Dose: 30 unit Documented By: BIBI-CHAITANYAICL Insulin Human Lispro (Insulin Lispro 100 Unit/Ml 3 Ml Vial) 0 unit SUBCUT QIDACHS [facility]; Protocol Last Admin: 07/28/21 12:01 Dose: 2 unit Documented By: SUSI [place] Cross Carbonate ([place] Carbonate 300 Mg Capsule) 900 mg PO DAILY [facility] Last Admin: 07/28/21 08:29 Dose: 900 mg Documented By: SUSI Melatonin (Melatonin 3 Mg Tablet) 6 mg PO BEDTIME PRN PRN Reason: Insomnia Multivitamins/Vitamin C (Multivitamin Tablet) 1 tab PO DAILY [facility] Last Admin: 07/28/21 08:29 Dose: 1 tab Documented By: SUSI Non-Formulary Medication (Ufrisrc-Vkg-Cjume-Tenof Alafen [Genvoya]) 1 tab PO DAILY [facility] Non-Formulary Medication (Valbenazine [Ingrezza]) 80 mg PO DAILY [facility] Omeprazole (Omeprazole 20 Mg Capsule.Dr) 20 mg PO DAILY@0630 [facility] Last Admin: 07/28/21 05:32 Dose: Not Given Documented By: HARI Non-Admin Reason: Patient Refused Pharmacy Consult (Consult Rx Perform Med Rec) 1 each MISCELLANE ONCE PRN PRN Reason: Consult order Pharmacy Consult (Consult Rx Vancomycin Dosing) 1 each MISCELLANE DAILY PRN PRN Reason: Consult order Pravastatin Sodium (Pravastatin Sodium 40 Mg Tablet) 40 mg PO BEDTIME [facility] Last Admin: 07/27/21 22:36 Dose: 40 mg Documented By: BIBI-CHAITANYAICL Pregabalin (Pregabalin 100 Mg Capsule) 100 mg PO BID [facility] Last Admin: 07/28/21 08:28 Dose: 100 mg Documented By: SUSI Propranolol HCl (Propranolol Hcl 20 Mg Tablet) 20 mg PO DAILY [facility]; Protocol Last Admin: 07/28/21 08:28 Dose: 20 mg Documented By: SUSI Risperidone (Risperidone 3 Mg Tablet) 6 mg PO BEDTIME [facility] Last Admin: 07/27/21 22:35 Dose: 6 mg Documented By: BIBI-ANICL Senna (Sennosides 8.6 Mg Tablet) 17.2 mg PO BEDTIME PRN PRN Reason: Constipation Sodium Chloride (0.9 % Sodium Chloride Flush 3 Ml Syringe) 3 ml IVFLUSH QSHIFT [facility] Last Admin: 07/28/21 08:28 Dose: 3 ml Documented By: SUSI Tamsulosin HCl (Tamsulosin Hcl 0.4 Mg Capsule) 0.4 mg PO BEDTIME [facility] Last Admin: 07/27/21 22:36 Dose: 0.4 mg Documented By: BIBI-ANICL Labs CBC & Chem 7: 07/28/21 06:45 07/28/21 06:45 Labs: Laboratory Results - last 24 hr 07/27/21 07/27/21 07/27/21 16:03 16:03 16:04 MCV MCH MCHC RDW Plt Count MPV Immature Gran % (Auto) Neut % (Auto) Lymph % (Auto) Moore % (Auto) Eos % (Auto) Baso % (Auto) Lymph # (Auto) Moore # (Auto) Eos # (Auto) Baso # (Auto) Abs Immat Gran (auto) Absolute Neuts (auto) Absolute Nucleated RBC Nucleated RBC % (auto) ESR 70 H Anion Gap 10 L Estim Creat Clear Calc 51.6 Estimated GFR 58 POC Glucose Random Glucose 133 H Lactic Acid 0.7 Calcium 9.9 D Total Bilirubin 0.3 Direct Bilirubin 0.2 AST 18 ALT 22 Alkaline Phosphatase 93 C-Reactive Protein 1.63 H Total Protein 7.3 Albumin 4.2 COVID-19 ([facility]) COVID-19 Clin Com 07/27/21 07/27/21 07/28/21 16:08 22:01 06:45 MCV 88.8 MCH 30.1 MCHC 33.9 RDW 12.0 Plt Count 192 MPV 10.7 Immature Gran % (Auto) 0.5 H Neut % (Auto) 72.6 Lymph % (Auto) 16.1 L Moore % (Auto) 8.0 Eos % (Auto) 2.5 Baso % (Auto) 0.3 Lymph # (Auto) 1.6 Moore # (Auto) 0.8 Eos # (Auto) 0.3 Baso # (Auto) 0.0 Abs Immat Gran (auto) 0.05 H Absolute Neuts (auto) 7.4 Absolute Nucleated RBC 0.000 Nucleated RBC % (auto) 0.0 ESR Anion Gap Estim Creat Clear Calc Estimated GFR POC Glucose 170 H Random Glucose Lactic Acid Calcium Total Bilirubin Direct Bilirubin AST ALT Alkaline Phosphatase C-Reactive Protein Total Protein Albumin COVID-19 ([facility]) Negative COVID-19 Clin Com See Note 07/28/21 07/28/21 07/28/21 06:45 06:45 07:29 MCV MCH MCHC RDW Plt Count MPV Immature Gran % (Auto) Neut % (Auto) Lymph % (Auto) Moore % (Auto) Eos % (Auto) Baso % (Auto) Lymph # (Auto) Moore # (Auto) Eos # (Auto) Baso # (Auto) Abs Immat Gran (auto) Absolute Neuts (auto) Absolute Nucleated RBC Nucleated RBC % (auto) ESR Anion Gap 10 L Estim Creat Clear Calc 57.0 57.5 Estimated GFR > 60 > 60 POC Glucose 135 H Random Glucose 129 H Lactic Acid Calcium 9.4 Total Bilirubin Direct Bilirubin AST ALT Alkaline Phosphatase C-Reactive Protein Total Protein Albumin COVID-19 ([facility]) COVID-19 Clin Com 07/28/21 11:54 MCV MCH MCHC RDW Plt Count MPV Immature Gran % (Auto) Neut % (Auto) Lymph % (Auto) Moore % (Auto) Eos % (Auto) Baso % (Auto) Lymph # (Auto) Moore # (Auto) Eos # (Auto) Baso # (Auto) Abs Immat Gran (auto) Absolute Neuts (auto) Absolute Nucleated RBC Nucleated RBC % (auto) ESR Anion Gap Estim Creat Clear Calc Estimated GFR POC Glucose 191 H Random Glucose Lactic Acid Calcium Total Bilirubin Direct Bilirubin AST ALT Alkaline Phosphatase C-Reactive Protein Total Protein Albumin COVID-19 ([facility]) COVID-19 Clin Com Assessment and Plan (1) Diabetic foot ulcers: Status: Acute Plan ?hospital d#2 55yo M with DM2, HIV, chronic L foot osteomyelitis, bilateral DFUs sent in from Wound Clinic for surgical debridement # DFU with infection on background of chronic L osteomyelitis - s/p bedside debridement of thick eschar by Gen Surg 07/27, continue IV vanc + pip/ab d#2, ID consult- likely home with amox/clav tomorrow with outpt Wound Clinic f/u # DM2 - basal/bolus insulin # HIV infection - continue Genvoya # BPH - conitnue finasteride, tamsulosin # schizoaffective disorder - continue home meds # VTE ppx - LMWH In my clinical judgment, the patient requires continued hospitalization for the following reasons: IV ABX Quality Stroke Does the patient have a stroke diagnosis?: No VTE Prior VTE?: No VTE Risk Level:: Medical - moderate - high VTE Device Contraindication: Treatment Not Indicated VTE Drug Contraindication: N/A - Med Ordered
[2021-07-28 15:09] VITALS: BP 118/68; PULSE 62; RESP 18; TEMP 37.1; O2SAT 100
[2021-07-28 15:54] LABS: Glucose, Whole Blood 119 mg/dL (60-115)
[2021-07-28 19:21] VITALS: BP 159/83; PULSE 65; RESP 18; TEMP 37.2; O2SAT 97
[2021-07-28 20:03] LABS: Glucose, Whole Blood 200 mg/dL (60-115)
[2021-07-28] MEDS: Enoxaparin Sodium 40 MG/0.4 ML SYRINGE SUBCUT (20:55)
[2021-07-28] MEDS: vancomycin HCL 1,250 MG in 0.9 % Sodium Chloride 250 ML 166.67 MG IV (20:55)
[2021-07-28] MEDS: Tamsulosin HCL 0.4 MG CAPSULE PO (21:12)
[2021-07-28] MEDS: Insulin Glargine,Hum.rec.anlog 100 UNIT/ML 10 ML VIAL 30 UNIT SUBCUT (21:13)
[2021-07-28] MEDS: Pravastatin Sodium 40 MG TABLET PO (21:13)
[2021-07-28] MEDS: risperiDONE 3 MG TABLET 6 MG PO (21:13)
[2021-07-28 23:47] VITALS: BP 113/67; PULSE 68; RESP 18; TEMP 37.1; O2SAT 99
[2021-07-29 04:00] VITALS: BP 120/68; PULSE 80; RESP 17; TEMP 36.9; O2SAT 96
[2021-07-29] MEDS: Piperacillin Sodium/Tazobactam 3.375 GM in 0.9 % Sodium Chloride 50 ML IV ×2 (04:06→10:07)
[2021-07-29] MEDS: Omeprazole 20 MG CAPSULE.DR PO (05:59)
[2021-07-29 06:26] LABS: Creatinine Clr Calc Pharmacy 55.1; Estimated Glomerular Filt Rate > 60
[2021-07-29 07:08] VITALS: BP 140/80; PULSE 61; RESP 20; TEMP 36.9; O2SAT 97
[2021-07-29 07:21] LABS: Glucose, Whole Blood 161 mg/dL (60-115)
--- NOTE | 2021-07-29 07:50 | HE.PHANOTE ---
SHARMILA LARA CONTINUE CURRENT DOSE, NEXT TROUGH DUE 07/29 @1800.
[2021-07-29] MEDS: Insulin Lispro 100 UNIT/ML 3 ML VIAL SUBCUT (09:09)
[2021-07-29] MEDS: 0.9 % Sodium Chloride Flush 3 ML SYRINGE IVFLUSH (09:09)
[2021-07-29] MEDS: Docusate Sodium 100 MG CAPSULE PO (09:10)
[2021-07-29] MEDS: Benztropine Mesylate 1 MG TABLET 2 MG PO (09:10)
[2021-07-29] MEDS: Lithium Carbonate 300 MG CAPSULE 900 MG PO (09:11)
[2021-07-29] MEDS: Propranolol HCL 20 MG TABLET PO (09:11)
[2021-07-29] MEDS: Multivitamin TABLET 1 TAB PO (09:12)
[2021-07-29] MEDS: Finasteride 5 MG TABLET PO (09:12)
[2021-07-29] MEDS: Pregabalin 100 MG CAPSULE PO (09:12)
--- NOTE | 2021-07-29 09:27 | PM.PNGS ---
Subjective Subjective Date of Service: 07/29/21 Interval history: No new complaints Denies any pain on either feet Physical Exam Vital Signs: Vital Signs: Last Vital Signs Temp 98.4 F 07/29/21 07:08 Pulse 61 07/29/21 07:08 Resp 20 07/29/21 07:08 BP 140/80 H 07/29/21 07:08 Pulse Ox 97 07/29/21 07:08 O2 Del Method 07/29/21 07:08 BMI result Body Mass Index 18.4 Const: General: comfortable and no acute distress Resp: Effort & Inspection: normal respiratory effort Extrem: Other: Right foot medial ulcer clean after debridement, callus on the lateral aspect Left foot lateral ulcer clean, no pus Objective Data Active Medications Benztropine Mesylate (Benztropine Mesylate 1 Mg Tablet) 2 mg PO BID [facility] Last Admin: 07/29/21 09:10 Dose: 2 mg Documented By: JENNIFER Dextrose (Dextrose 50 % 25 Gm/50 Ml Syringe) 25 gm IVPUSH Q15M PRN; Protocol PRN Reason: per Hypoglycemia Standing Ord. Docusate Sodium (Docusate Sodium 100 Mg Capsule) 100 mg PO BID [facility] Last Admin: 07/29/21 09:10 Dose: 100 mg Documented By: JENNIFER Enoxaparin Sodium (Enoxaparin Sodium 40 Mg/0.4 Ml Syringe) 40 mg SUBCUT Q24H [facility] Last Admin: 07/28/21 20:55 Dose: 40 mg Documented By: KELSIE Finasteride (Finasteride 5 Mg Tablet) 5 mg PO DAILY [facility] Last Admin: 07/29/21 09:12 Dose: 5 mg Documented By: JENNIFER Glucose (Glucose Gel 15 Gm Gel..Gram.) 15 gm PO Q15M PRN; Protocol PRN Reason: per Hypoglycemia Standing Ord. Hydromorphone HCl (Hydromorphone Hcl 0.5 Mg/0.5 Ml Syringe) 0.5 mg IVPUSH Q4H PRN; Protocol PRN Reason: Pain, Severe (Pain Scale 7-10) Piperacillin Sod/Tazobactam (Sod 3.375 gm/ Sodium Chloride) 50 mls @ 100 mls/hr IV Q6H [facility] Last Infusion: 07/29/21 04:44 Dose: 0 mls/hr Documented By: KESLIE Vancomycin HCl 1,250 mg/ (Sodium Chloride) 250 mls @ 166.667 mls/hr IV Q24H [facility] Last Infusion: 07/28/21 22:30 Dose: 0 mls/hr Documented By: KELSIE Insulin Glargine (Insulin Glargine,Hum.Rec.Anlog 100 Unit/Ml 10 Ml Vial) 30 unit SUBCUT BEDTIME [facility] Last Admin: 07/28/21 21:13 Dose: 30 unit Documented By: KELSIE Insulin Human Lispro (Insulin Lispro 100 Unit/Ml 3 Ml Vial) 0 unit SUBCUT QIDACHS [facility]; Protocol Last Admin: 07/29/21 09:09 Dose: 2 unit Documented By: JENNIFER D[place]ittle Carbonate ([place]ittle Carbonate 300 Mg Capsule) 900 mg PO DAILY [facility] Last Admin: 07/29/21 09:11 Dose: 900 mg Documented By: JENNIFER Melatonin (Melatonin 3 Mg Tablet) 6 mg PO BEDTIME PRN PRN Reason: Insomnia Multivitamins/Vitamin C (Multivitamin Tablet) 1 tab PO DAILY [facility] Last Admin: 07/29/21 09:12 Dose: 1 tab Documented By: JENNIFER Non-Formulary Medication (Hrewtor-Ynh-Ykrex-Tenof Alafen [Genvoya]) 1 tab PO DAILY [facility] Non-Formulary Medication (Valbenazine [Ingrezza]) 80 mg PO DAILY [facility] Omeprazole (Omeprazole 20 Mg Capsule.Dr) 20 mg PO DAILY@0630 [facility] Last Admin: 07/29/21 05:59 Dose: 20 mg Documented By: KELSIE Pharmacy Consult (Consult Rx Perform Med Rec) 1 each MISCELLANE ONCE PRN PRN Reason: Consult order Pharmacy Consult (Consult Rx Vancomycin Dosing) 1 each MISCELLANE DAILY PRN PRN Reason: Consult order Pravastatin Sodium (Pravastatin Sodium 40 Mg Tablet) 40 mg PO BEDTIME [facility] Last Admin: 07/28/21 21:13 Dose: 40 mg Documented By: KELSIE Pregabalin (Pregabalin 100 Mg Capsule) 100 mg PO BID [facility] Last Admin: 07/29/21 09:12 Dose: 100 mg Documented By: JENNIFER Propranolol HCl (Propranolol Hcl 20 Mg Tablet) 20 mg PO DAILY [facility]; Protocol Last Admin: 07/29/21 09:11 Dose: 20 mg Documented By: JENNIFER Risperidone (Risperidone 3 Mg Tablet) 6 mg PO BEDTIME [facility] Last Admin: 07/28/21 21:13 Dose: 6 mg Documented By: KELSIE Senna (Sennosides 8.6 Mg Tablet) 17.2 mg PO BEDTIME PRN PRN Reason: Constipation Sodium Chloride (0.9 % Sodium Chloride Flush 3 Ml Syringe) 3 ml IVFLUSH QSHIFT [facility] Last Admin: 07/29/21 09:09 Dose: 3 ml Documented By: JENNIFER Tamsulosin HCl (Tamsulosin Hcl 0.4 Mg Capsule) 0.4 mg PO BEDTIME [facility] Last Admin: 07/28/21 21:12 Dose: 0.4 mg Documented By: KELSIE Labs CBC & Chem 7: 07/28/21 06:45 07/29/21 05:47 Labs: Laboratory Results - last 24 hr 07/28/21 07/28/21 07/28/21 11:54 15:11 19:20 Estim Creat Clear Calc Estimated GFR POC Glucose 191 H 119 H 200 H 07/29/21 07/29/21 05:47 07:07 Estim Creat Clear Calc 55.1 Estimated GFR > 60 POC Glucose 161 H Microbiology Microbiology Results: Microbiology 07/27/21 16:03 Blood Culture - Preliminary Blood - Venous No growth after 24 hours. 07/27/21 15:56 Blood Culture - Preliminary Blood - Venous No growth after 24 hours. Procedures Date of Service Date of Service: 07/29/21 Progress Note: A&P Assessment and plan (1) Diabetic foot ulcers: Status: Acute (2) Eschar of foot: Status: Acute Assessment and Plan: Status post debridement Dressings changed Both feet are wrapped in Kerlix roll Ulcer sites are clean Okay to NH home with follow-up with the Wound Clinic Time Spent With Patient Time: Total time spent is greater than 50% in coordination of care (as documented) at patient's floor/unit and/or counseling patient: Quality Stroke Does the patient have a stroke diagnosis?: No VTE Prior VTE?: No VTE Risk Level:: Medical - moderate - high VTE Device Contraindication: Treatment Not Indicated VTE Drug Contraindication: N/A - Med Ordered
--- NOTE | 2021-07-29 10:48 | P.DS_ITS ---
DS: Providers Provider Date of Service: 07/29/21 Date of admission: 07/27/21 19:15 Date of discharge: 07/29/21 Primary care physician: Shell Loepz MD Consults: 07/27/21 19:15 Consult to General Surgery Routine Consulting Provider: Nigel Osman Reason for consultation: Diabetic foot infection/ulcer/eschar Consult to Infectious Diseases Routine Consulting Provider: Angie Wade Reason for consultation: Diabetic foot infection DS: Diagnosis Discharge Diagnosis (1) Diabetic foot ulcers: Status: Acute (2) Eschar of foot: Status: Acute (3) Diabetic foot infection: Status: Acute DS: Summary Hospital Course Hospital Course: from H+P by admitter Keegan Alejandrosridhar, 07/27/21: 55-year-old male with a past medical history of? hyperlipidemia, diabetes, HIV, hepatitis, BPH, erectile dysfunction, CKD stage 2, osteomyelitis of the left foot, tardive dyskinesia, mood disorder, bilateral diabetic foot wounds-follows with Wound Clinic sent from the wound clinic today with a chief complaint of bilateral foot wounds requiring surgical debridement.? Patient denies any fever chills cough.? Denies any chest pain or palpitations.? Patient mentioned that he has been on insulin for left foot osteomyelitis.? Denies any nausea vomiting or diarrhea.? Denies any GI symptoms.? Review of all other systems is negative except mentioned above ER course: Per ER team patient noted to have left foot chronic wound in the ball of the foot-callused over no signs of active infection, leak and no drainage,; right foot medial aspect ball of the foot flap noted elevation material; general surgery was consulted, Dr. Osman did a bedside debridement; patient was given IV Zosyn and admitted to the hospital for further management. 55yo M with DM2, HIV, chronic L foot osteomyelitis, bilateral DFUs sent in from Wound Clinic for surgical debridement. Gen Surg + ID consulted. Examination showed ulcer on the lateral aspect of the left foot and was clean.? On the right foot, however, medially at the base of the 1st metatarsal was a large ulcer with a thick, foul-smelling eschar.? This measured about 3.5 cm in diameter.? Bedside debridement of thick eschar on R done. Given IV vanco + pip/ab. Discharged home with 1 week of amox/clav and instructions to wrap daily in Kerlix. Should follow up with Primary Care and [facility] [place] [facility] next week. Time Spent with Patient Time attestation: Total time spent providing and/or coordinating discharge services: Discharge coordination time: Greater than 30 minutes Quality: Safe Use of Opioids Does Pt have an Active Cancer Diagnosis on the Problem List?: No Quality: Stroke Does the patient have a stroke diagnosis?: No Physical Exam Vital Signs: Vital Signs: Last Vital Signs Temp 98.4 F 07/29/21 07:08 Pulse 61 07/29/21 07:08 Resp 20 07/29/21 07:08 BP 140/80 H 07/29/21 07:08 Pulse Ox 97 07/29/21 07:08 O2 Del Method 07/29/21 07:08 BMI result Body Mass Index 18.4 Gen: in no acute distress HEENT: sclera anicteric, moist mucus membranes Neck: supple Lungs: clear to auscultation bilaterally Heart: regular rate and rhythm, no murmurs Abd: soft, non-tender, non-distended Ext: no edema Skin: R foot medial ulcer clean, lateral callus; L foot lateral ulcer clean Neuro: alert and oriented x3, no focal findings Psych: appropriate affect DS: Data Data Completed and Pending Completed studies during hospitalization [Text1]: Laboratory Results WBC 10.2 X10*3/uL (4.8-10.8) 07/28/21 06:45 RBC 3.92 X10*6/uL (4.60-5.80) L 07/28/21 06:45 Hgb 11.8 g/dl (14.0-18.0) L 07/28/21 06:45 Hct 34.8 % (42.0-52.0) L 07/28/21 06:45 MCV 88.8 fL (80.0-98.0) 07/28/21 06:45 MCH 30.1 pg (27.0-33.0) 07/28/21 06:45 MCHC 33.9 g/dl (31.0-36.0) 07/28/21 06:45 RDW 12.0 % (11.0-16.0) 07/28/21 06:45 Plt Count 192 X10*3/uL (160-400) 07/28/21 06:45 MPV 10.7 fL (9.4-12.4) 07/28/21 06:45 Immature Gran % (Auto) 0.5 % (0.0-0.4) H 07/28/21 06:45 Neut % (Auto) 72.6 % (45-73) 07/28/21 06:45 Lymph % (Auto) 16.1 % (20-40) L 07/28/21 06:45 Baker % (Auto) 8.0 % (2-11) 07/28/21 06:45 Eos % (Auto) 2.5 % (0-4) 07/28/21 06:45 Baso % (Auto) 0.3 % (0-2) 07/28/21 06:45 Lymph # (Auto) 1.6 X10*3/uL (1.2-4.9) 07/28/21 06:45 Baker # (Auto) 0.8 X10*3/uL (0.1-1.2) 07/28/21 06:45 Eos # (Auto) 0.3 X10*3/uL (0.0-0.4) 07/28/21 06:45 Baso # (Auto) 0.0 X10*3/uL (0.0-0.2) 07/28/21 06:45 Abs Immat Gran (auto) 0.05 X10*3/uL (0.00-0.03) H 07/28/21 06:45 Absolute Neuts (auto) 7.4 x10*3/uL (2.0-8.3) 07/28/21 06:45 Absolute Nucleated RBC 0.000 X10*3/uL (0.0-0.012) 07/28/21 06:45 Nucleated RBC % (auto) 0.0 /100WBC (0.0-0.2) 07/28/21 06:45 ESR 70 MM/HR (0-15) H 07/27/21 16:03 Sodium 141 mmol/L (135-145) 07/28/21 06:45 Potassium 3.9 mmol/L (3.3-5.1) 07/28/21 06:45 Chloride 110 mmol/L (96-108) H 07/28/21 06:45 Carbon Dioxide 25 mmol/L (22-29) 07/28/21 06:45 Anion Gap 10 (12-20) L 07/28/21 06:45 BUN 17 mg/dL (9-16) H 07/28/21 06:45 Creatinine 1.20 mg/dL (0.5-1.4) 07/29/21 05:47 Estim Creat Clear Calc 55.1 07/29/21 05:47 Estimated GFR > 60 07/29/21 05:47 POC Glucose 161 mg/dL (60-115) H 07/29/21 07:07 Random Glucose 129 mg/dL (60-115) H 07/28/21 06:45 Lactic Acid 0.7 mmol/L (0.5-2.0) 07/27/21 16:03 Calcium 9.4 mg/dL (8.4-10.2) 07/28/21 06:45 Total Bilirubin 0.3 mg/dL (0.0-1.0) 07/27/21 16:04 Direct Bilirubin 0.2 mg/dL (0.0-0.5) 07/27/21 16:04 AST 18 U/L (5-37) 07/27/21 16:04 ALT 22 U/L (0-40) 07/27/21 16:04 Alkaline Phosphatase 93 U/L (39-117) 07/27/21 16:04 C-Reactive Protein 1.63 mg/dL (< or = 0.50) H 07/27/21 16:04 B-Natriuretic Peptide 16 pg/mL (<100) 07/27/21 12:19 Total Protein 7.3 g/dL (6.5-8.0) 07/27/21 16:04 Albumin 4.2 g/dL (3.5-5.0) 07/27/21 16:04 COVID-19 ([facility]) Negative (Negative) 07/27/21 16:08 COVID-19 Clin Com See Note 07/27/21 16:08 Impressions Foot X-Ray 07/27/21 16:18 IMPRESSION: 1. Plantar soft tissue wound and swelling without overt underlying osteomyelitis. 2. Degenerative changes as detailed above without overt acute abnormality. Labs on day of discharge: Laboratory Results - last 24 hr 07/28/21 07/28/21 07/28/21 11:54 15:11 19:20 Creatinine Estim Creat Clear Calc Estimated GFR POC Glucose 191 H 119 H 200 H 07/29/21 07/29/21 05:47 07:07 Creatinine 1.20 Estim Creat Clear Calc 55.1 Estimated GFR > 60 POC Glucose 161 H Preliminary micro results at discharge 07/27/21 16:03 Blood Culture - Preliminary Blood - Venous No growth after 24 hours. 07/27/21 15:56 Blood Culture - Preliminary Blood - Venous No growth after 24 hours. Discharge Plan Discharge Patient Disposition: Home, Self-Care Discharge Diagnosis: DFU with infection on background of chronic L osteomyelitis [facility]Other[facility] - 1 Week [facility] [place] W[facility] Management [Provider Group] - 1 Week Shlel Lopez MD [Primary Care Provider] - 1 Week Discharge Medications: New amoxicillin-pot clavulanate 875-125 mg tablet 1 tab PO BID Qty: 14 0RF Continued tamsulosin 0.4 mg capsule 0.4 mg PO BEDTIME 30 Days Qty: 90 3RF omeprazole 20 mg capsule,delayed release(DR/EC) 1 cap PO DAILY insulin asp prt-insulin aspart [Novolog Mix 70-30FlexPen U-100] 100 unit/mL (70-30) insulin pen 52 unit subcut DAILY naproxen 500 mg tablet 1 tab PO BID PRN (Reason: Pain) Cerovite Senior 0.4 mg-300 mcg- 250 mcg Tablet 1 tab PO DAILY pregabalin 100 mg capsule 1 cap PO BID Ingrezza 80 mg Capsule 80 mg PO DAILY Genvoya [phone] mg tablet 1 tab PO DAILY (DME) pen needle, diabetic [BD Vvi 2nd Gen Pen Needle] 32 gauge x 5/32 needle See Rx Instructions .ROUTE .MEDSUPPLY Qty: 50 Rx Instructions: As directed pravastatin 40 mg tablet 40 mg PO BEDTIME lithium carbonate 300 mg tablet 900 mg PO DAILY propranolol 20 mg tablet 20 mg PO DAILY risperidone 3 mg tablet 6 mg PO BEDTIME docusate sodium 100 mg capsule 100 mg PO BID benztropine 2 mg tablet 2 mg PO BID insulin asp prt-insulin aspart [Novolog Mix 70-30FlexPen U-100] 100 unit/mL (70-30) insulin pen 38 unit subcut BEDTIME finasteride 5 mg tablet 5 mg PO DAILY 90 Days Qty: 90 1RF penicillin V potassium 250 mg tablet 250 mg PO BID 30 Days Qty: 60 1RF Discharge Orders: Discharge Order (Routine); Ordered 07/29/21 Ordered By: Viraj Willis Diet: diabetic diet Activity on Discharge: As tolerated Stand Alone Forms: Patient Portal Discharge page Care Plan Goals: cure of wound and infection Health Concerns: DFU with infection on background of chronic L osteomyelitis Plan of Treatment: amoxicillin-clavulanate 875-125 mg twice daily for 7 days wrap both feet in Kerlix, change daily follow up with Primary Care in 1 week follow up with [facility] [place] W[facility] Care in 1 week Assessment: See Discharge Summary Patient Instructions: Wound Healing and Your Diet (DC)
[2021-07-29 11:05] VITALS: BP 135/80; PULSE 79; RESP 20; TEMP 36.6; O2SAT 98
--- NOTE | 2021-07-29 11:20 | MHC.CM.PN ---
PER MD ROUNDS, PT WILL DC TODAY CM CALLED PTS COLORIST, [facility] ([phone]) AND INFORMED HER OF PENDING DC SHE IS NOW AWARE PT WILL DC ON PO AUGMENTIN AND NEED FOR CONTINUED WOUND CARE USHA FARRA NOTIFIED [facility] THEY WILL ONLY NEED PTS DC SUMMARY SHE IS AWARE RX WAS SENT TO [facility] SHE WILL TRANSPORT PT AND WILL ARRIVE BETWEEN 1315 AND 1330 SHE WILL CALL WHEN SHE ARRIVES.
[2021-07-29 11:30] LABS: Glucose, Whole Blood 135 mg/dL (60-115)
[2021-07-29 12:00] VITALS: BP 117/66; PULSE 86; RESP 16; O2SAT 96
== END 2021-07-29 13:47 | disposition home or self-care (01) | DRG 344 ==
LOC: HO.ED 16:21 → HO.EDOVER 19:22 → HO.IMC 22:39
PROVIDERS: Emergency Medicine; Admitting Provider Hospitalist; Emergency Provider Internal Medicine; PCP Pediatrics; Visit Provider Family Medicine
DX: E11.621 Type 2 diabetes mellitus with foot ulcer (principal); M86.672 Other chronic osteomyelitis, left ankle and foot; E11.22 Type 2 diabetes mellitus with diabetic chronic kidney disease; F25.9 Schizoaffective disorder, unspecified; L97.519 Non-pressure chronic ulcer of other part of right foot with unspecified severity; L97.529 Non-pressure chronic ulcer of other part of left foot with unspecified severity; E11.69 Type 2 diabetes mellitus with other specified complication; E78.5 Hyperlipidemia, unspecified; Z21 Asymptomatic human immunodeficiency virus [HIV] infection status; G24.01 Drug induced subacute dyskinesia; N40.0 Benign prostatic hyperplasia without lower urinary tract symptoms; N52.01 Erectile dysfunction due to arterial insufficiency; N18.2 Chronic kidney disease, stage 2 (mild); Z20.822 Contact with and (suspected) exposure to COVID-19; Z88.6 Allergy status to analgesic agent; Z88.8 Allergy status to other drugs, medicaments and biological substances; Z79.4 Long term (current) use of insulin; Z79.899 Other long term (current) drug therapy
CPT/HCPCS: 36415; 73630; 80048; 80076; 82565; 82947; 83605; 83880; 85025; 85027; 85652; 86140; 87040; 87635; 96365; 99284; 99285; J1650; J2543; J3370

== ENCOUNTER → 2021-08-18 11:24 | Outpatient (BNVA) | payer MEDICAID, SELFPAY | PROVIDERS: PCP Pediatrics; Visit Provider Urology | DX: N34.2 Other urethritis (principal); N39.0 Urinary tract infection, site not specified; N45.1 Epididymitis; N41.1 Chronic prostatitis; N40.1 Benign prostatic hyperplasia with lower urinary tract symptoms; N13.8 Other obstructive and reflux uropathy; N52.9 Male erectile dysfunction, unspecified; Z79.899 Other long term (current) drug therapy | CPT/HCPCS: 99212 ==

== ENCOUNTER 2021-08-30 05:22 | Emergency (ER) | payer MEDICAID, SELFPAY ==
--- NOTE | ~2021-08-30 | XR_ITS ---
EXAMINATION: XR ABDOMEN KUB CLINICAL INDICATION: Constipation COMPARISON: None TECHNIQUE: AP view of the abdomen. FINDINGS: Moderate stool in colon. There is no organomegaly. No radiopaque calculi. No gross bony abnormality. XR/XR KUB IMPRESSION: Mild constipation.
--- NOTE | ~2021-08-30 | XR_ITS ---
EXAMINATION: XR CHEST CLINICAL INFORMATION: Fever COMPARISON: 06/15/2021 TECHNIQUE: 2 views of the chest were obtained. FINDINGS: The patient's arms are down at his side for both the frontal and lateral view. The lateral view is therefore significantly limited. Decreased lung volumes. No focal consolidation or mass. No pleural effusion or pneumothorax. Normal heart size. Normal pulmonary vascularity. Regional skeleton intact. XR/XR chest 2V IMPRESSION: Limited lateral view. No acute pulmonary disease.
[2021-08-30 05:32] VITALS: BP 120/65; BP 124/68; PULSE 92; PULSE 98; TEMP 36.8; O2SAT 95; O2SAT 97; BMI 25.6
[2021-08-30 06:03] LABS: Basophils Percent Auto 0.1 % (0-2); Eosinophils Percent Auto 0.1 % (0-4); Hematocrit 36.3 % (42.0-52.0); Hemoglobin 12.3 g/dl (14.0-18.0); Imm Gran Pct Auto 0.7 % (0.0-0.4); Lymphocytes Absolute Auto 0.6 X10*3/uL (1.2-4.9); Mean Corpuscular HGB Conc 33.9 g/dl (31.0-36.0); Mean Corpuscular Hemoglobin 30.5 pg (27.0-33.0); Mean Corpuscular Volume 90.1 fL (80.0-98.0); Mean Platelet Volume 11.4 fL (9.4-12.4); Monocytes Absolute Auto 1.4 X10*3/uL (0.1-1.2); Monocytes Percent Auto 9.8 % (2-11); Neutrophils Absolute Auto 12.5 x10*3/uL (2.0-8.3); Neutrophils Percent Auto 85.3 % (45-73); Red Blood Count 4.03 X10*6/uL (4.60-5.80); Red Cell Distribution Width 12.5 % (11.0-16.0); White Blood Count 14.7 X10*3/uL (4.8-10.8)
[2021-08-30 06:06] LABS: MANUAL DIFF FLAG SCAN; Platelet Count 88 X10*3/uL (160-400)
[2021-08-30 06:20] LABS: SLIDE REVIEW VERIFIED
[2021-08-30 06:28] LABS: Lactic Acid 1.4 mmol/L (0.5-2.0)
[2021-08-30 06:37] LABS: Alanine Aminotransferase 33 U/L (0-40); Albumin Level 4.1 g/dL (3.5-5.0); Alkaline Phosphatase 87 U/L (39-117); Anion Gap 11 (12-20); Aspartate Amino Transferase 30 U/L (5-37); Bilirubin Total 0.8 mg/dL (0.0-1.0); Blood Urea Nitrogen 15 mg/dL (9-16); Calcium 9.1 mg/dL (8.4-10.2); Carbon Dioxide 24 mmol/L (22-29); Chloride 105 mmol/L (96-108); Creatinine Clr Calc Pharmacy 58.2; Estimated Glomerular Filt Rate 54; Glucose Random 236 mg/dL (60-115); Potassium 4.1 mmol/L (3.3-5.1); Sodium 136 mmol/L (135-145); Total Protein 6.9 g/dL (6.5-8.0)
--- NOTE | 2021-08-30 07:07 | ED.WEAKNESS ---
HPI - Weakness General Chief complaint: Weakness Stated complaint: fever chills Time Seen by Provider: 08/30/21 06:58 Mode of arrival: EMS History of Present Illness HPI Narrative: This is a 55 years old male who comes from a half-way he was sent here for possible fever, no fever whatsoever recorded in a half-way , by the ambulance crew,by us, patient denies any complain. He has history of HIV, BPH MD Complaint: generalized weakness Onset (ago): day(s) (1) Duration: constant Location: generalized Severity: mild Related Data Home Medications Medication Instructions Recorded Confirmed benztropine 2 mg tablet 2 mg PO BID 02/16/21 07/27/21 docusate sodium 100 mg capsule 100 mg PO BID 02/16/21 07/27/21 elviteg 150 mg-cob 150 mg-emtricit 1 tab PO DAILY 02/16/21 07/27/21 200 mg-tenofo alafenam 10 mg tablet (Genvoya) insulin aspar prot-insulin aspart 38 unit subcut BEDTIME 02/16/21 07/27/21 100 unit/mL (70-30) subcutaneous pen (Novolog Mix 70-30FlexPen U-100) lithium carbonate 300 mg tablet 900 mg PO DAILY 02/16/21 07/27/21 pen needle, diabetic 32 gauge x #50 ea 02/16/21 03/05/21 (BD Viv 2nd Gen Pen Needle) pravastatin 40 mg tablet 40 mg PO BEDTIME 02/16/21 07/27/21 propranolol 20 mg tablet 20 mg PO DAILY 02/16/21 07/27/21 risperidone 3 mg tablet 6 mg PO BEDTIME 02/16/21 07/27/21 insulin aspar prot-insulin aspart 52 unit subcut DAILY 03/05/21 07/27/21 100 unit/mL (70-30) subcutaneous pen (Novolog Mix 70-30FlexPen U-100) omeprazole 20 mg capsule,delayed 1 cap PO DAILY 03/05/21 07/27/21 release naproxen 500 mg tablet 1 tab PO BID PRN Pain 06/15/21 07/27/21 eurwrpvk-hcw-kwgjt acid 0.4 1 tab PO DAILY 07/27/21 07/27/21 mg-lycopene 300 mcg-lutein 250 mcg tablet (Cerovite Senior) pregabalin 100 mg capsule 1 cap PO BID 07/27/21 07/27/21 valbenazine 80 mg capsule 80 mg PO DAILY 07/27/21 07/27/21 (Alexis) Previous Rx's Medication Instructions Recorded finasteride 5 mg tablet 5 mg PO DAILY 90 days #90 tabs 02/16/21 tamsulosin 0.4 mg capsule 0.4 mg PO BEDTIME 30 days #90 caps 04/06/21 penicillin V potassium 250 mg 250 mg PO BID 30 days #60 tabs 05/07/21 tablet amoxicillin 875 mg-potassium 1 tab PO BID #14 tabs 07/29/21 clavulanate 125 mg tablet doxycycline hyclate 100 mg tablet 100 mg PO BID 14 days #28 tabs 08/18/21 lactulose 10 gram/15 mL (15 mL) 10 g (15 mL) PO DAILY #600 mL 08/30/21 oral solution Allergies Allergy/AdvReac Type Severity Reaction Status Date / Time acetaminophen [From TYLENOL] Allergy Unknown UNKNOWN Verified 08/18/21 11:29 aspirin [ASA] Allergy Unknown AGITATION Verified 08/18/21 11:29 trazodone [TRAZODONE] AdvReac Unknown HYPER Verified 08/18/21 11:29 Review of Systems Constitutional: Constitutional: Reports no additional constitutional complaints Cardiovascular: Cardiovascular: Denies dyspnea Respiratory: Respiratory: Denies cough, Denies dyspnea and Denies wheezing Gastrointestinal: Gastrointestinal: Denies abdominal pain Allergic/Immunologic: Allergic/Immunologic: Denies wheezing PMFSH Past Medical History Medical History BPH w urinary obs/LUTS Chronic prostatitis Diabetic foot ulcers Erectile dysfunction due to arterial insufficiency Eschar of foot Hepatitis HIV (human immunodeficiency virus infection) Open wnd foot-complicated Osteomyelitis of left foot Sepsis Urinary hesitancy Surgical History No pertinent past surgical history Family History Family History Father No problems noted. Mother No problems noted. Social History Social History Household Members: Unknown / Unable to assess Housing: House Do you presently have visiting nurse or other home services: Yes Unable to assess alcohol history related to: Refusing to respond Alcohol intake: former Patient Tobacco Use Status: Tobacco use Unknown Advance Directives: No Advance Directives Information Provided: No service: No Current occupational status: unemployed Physical Exam Vital Signs: Vital Signs: Last Vital Signs Temp 98.3 F 08/30/21 07:40 Pulse 87 08/30/21 07:40 Resp 17 08/30/21 07:40 BP 114/64 08/30/21 07:40 Pulse Ox 97 08/30/21 07:40 O2 Del Method 08/30/21 07:40 BMI result Body Mass Index 25.6 Const: General: cooperative Nutritional Appearance: average body habitus Orientation/consciousness: patient oriented x3 Limitations: no limitations HEENT: Ears: TM's normal bilaterally General nose exam: Normal external nose present Face and sinus: Yes normal facial exam Mouth: Normal oral and palatal mucosa present Throat: Yes posterior oropharynx normal Neck: Neck: Yes normal visual inspection and Yes full ROM Chest: Chest palpation & inspection: normal inspection of the chest Resp: Effort & Inspection: normal respiratory effort and able to speak in complete sentences Auscultation: clear to auscultation bilaterally Cardio: Jugular venous distension: no JVD Rate: regular rate Rhythm: regular rhythm GI: Inspection: Yes normal to inspection Palpation (GI): Soft to palpation, not firm, nontender and no guarding Skin: General skin exam: no rashes or lesions noted and elasticity normal Neuro: General: patient oriented x3 Extrem: Other: I examine the feet as well because he was history of wound infection patient does to well healed ulcer in the left the right foot Course Reevaluation(s) Reevaluation #1: PATIENT REMAINED AFEBRILE AND NO TOXIC-APPEARING, NO FEVER WAS DETECTED THE IN THE EMERGENCY ROOM A OR PRE-HOSPITAL, CHEST X-RAY WAS NEGATIVE UA WAS CLEAR, HE HAS A MILDLY ELEVATED WHITE COUNT I THINK CARE WE COULD SEND THE PATIENT HOME MOST LIKELY VIRAL ILLNESS BLOOD CULTURE WERE OBTAINED ANY WAY Time: 11:21 Reevaluation #2: We were going to discharge the patient, nurse call the half-way, half-way is now concerned because he is very constipated. At this point will do KUB and give p.o. lactulose Time: 11:38 Reevaluation #3: KUB mild constipation no obstruction will d/c on lactulose Time: 13:26 MDM - Weakness Lab Data Result diagrams: 08/30/21 05:58 08/30/21 05:58 Labs: Lab Results 08/30/21 08/30/21 08/30/21 Range/Units 05:58 05:58 05:58 WBC 14.7 H (4.8-10.8) X10*3/uL RBC 4.03 L (4.60-5.80) X10*6/uL Hgb 12.3 L (14.0-18.0) g/dl Hct 36.3 L (42.0-52.0) % MCV 90.1 (80.0-98.0) fL MCH 30.5 (27.0-33.0) pg MCHC 33.9 (31.0-36.0) g/dl RDW 12.5 (11.0-16.0) % Plt Count 88 L D (160-400) X10*3/uL MPV 11.4 (9.4-12.4) fL Immature Gran % (Auto) 0.7 H (0.0-0.4) % Neut % (Auto) 85.3 H (45-73) % Lymph % (Auto) 4.0 L (20-40) % Lawrence % (Auto) 9.8 (2-11) % Eos % (Auto) 0.1 (0-4) % Baso % (Auto) 0.1 (0-2) % Lymph # (Auto) 0.6 L (1.2-4.9) X10*3/uL Lawrence # (Auto) 1.4 H (0.1-1.2) X10*3/uL Eos # (Auto) 0.0 (0.0-0.4) X10*3/uL Baso # (Auto) 0.0 (0.0-0.2) X10*3/uL Abs Immat Gran (auto) 0.10 H (0.00-0.03) X10*3/uL Absolute Neuts (auto) 12.5 H (2.0-8.3) x10*3/uL Absolute Nucleated RBC 0.000 (0.0-0.012) X10*3/uL Nucleated RBC % (auto) 0.0 (0.0-0.2) /100WBC Smear Tech's Comments VERIFIED Sodium 136 (135-145) mmol/L Potassium 4.1 (3.3-5.1) mmol/L Chloride 105 (96-108) mmol/L Carbon Dioxide 24 (22-29) mmol/L Anion Gap 11 L (12-20) BUN 15 (9-16) mg/dL Creatinine 1.37 (0.5-1.4) mg/dL Estim Creat Clear Calc 58.2 Estimated GFR 54 Random Glucose 236 H D (60-115) mg/dL Lactic Acid (0.5-2.0) mmol/L Calcium 9.1 (8.4-10.2) mg/dL Total Bilirubin 0.8 (0.0-1.0) mg/dL AST 30 D (5-37) U/L ALT 33 (0-40) U/L Alkaline Phosphatase 87 (39-117) U/L Total Protein 6.9 (6.5-8.0) g/dL Albumin 4.1 (3.5-5.0) g/dL Urine Color Urine Appearance Urine pH (5.0-8.0) Ur Specific [place] (1.005-1.025) Urine Protein (NEG-TRACE) MG/DL Urine Glucose (UA) (NEG) MG/DL Urine Ketones (NEG) MG/DL Urine Blood (NEG) Urine Nitrite (NEG) Ur Leukocyte Esterase (NEG) Urine RBC (0) /HPF Urine WBC (0-4) /HPF Ur Squamous Epith Cells /LPF Urine Bacteria /LPF COVID-19 ([facility]) Negative (Negative) COVID-19 Clin Com See Note 08/30/21 08/30/21 08/30/21 Range/Units 05:58 11:10 12:09 WBC (4.8-10.8) X10*3/uL RBC (4.60-5.80) X10*6/uL Hgb (14.0-18.0) g/dl Hct (42.0-52.0) % MCV (80.0-98.0) fL MCH (27.0-33.0) pg MCHC (31.0-36.0) g/dl RDW (11.0-16.0) % Plt Count (160-400) X10*3/uL MPV (9.4-12.4) fL Immature Gran % (Auto) (0.0-0.4) % Neut % (Auto) (45-73) % Lymph % (Auto) (20-40) % Lawrence % (Auto) (2-11) % Eos % (Auto) (0-4) % Baso % (Auto) (0-2) % Lymph # (Auto) (1.2-4.9) X10*3/uL Lawrence # (Auto) (0.1-1.2) X10*3/uL Eos # (Auto) (0.0-0.4) X10*3/uL Baso # (Auto) (0.0-0.2) X10*3/uL Abs Immat Gran (auto) (0.00-0.03) X10*3/uL Absolute Neuts (auto) (2.0-8.3) x10*3/uL Absolute Nucleated RBC (0.0-0.012) X10*3/uL Nucleated RBC % (auto) (0.0-0.2) /100WBC Smear Tech's Comments Sodium (135-145) mmol/L Potassium (3.3-5.1) mmol/L Chloride (96-108) mmol/L Carbon Dioxide (22-29) mmol/L Anion Gap (12-20) BUN (9-16) mg/dL Creatinine (0.5-1.4) mg/dL Estim Creat Clear Calc Estimated GFR Random Glucose (60-115) mg/dL Lactic Acid 1.4 (0.5-2.0) mmol/L Calcium (8.4-10.2) mg/dL Total Bilirubin (0.0-1.0) mg/dL AST (5-37) U/L ALT (0-40) U/L Alkaline Phosphatase (39-117) U/L Total Protein (6.5-8.0) g/dL Albumin (3.5-5.0) g/dL Urine Color YELLOW YELLOW Urine Appearance CLEAR CLEAR Urine pH 7.0 6.5 (5.0-8.0) Ur Specific [place] 1.010 1.010 (1.005-1.025) Urine Protein TRACE TRACE (NEG-TRACE) MG/DL Urine Glucose (UA) NEG NEG (NEG) MG/DL Urine Ketones NEG NEG (NEG) MG/DL Urine Blood NEG NEG (NEG) Urine Nitrite NEG NEG (NEG) Ur Leukocyte Esterase NEG NEG (NEG) Urine RBC 0 (0) /HPF Urine WBC 1-4 (0-4) /HPF Ur Squamous Epith Cells TRACE /LPF Urine Bacteria NONE /LPF COVID-19 ([facility]) (Negative) COVID-19 Clin Com Imaging Data Abdominal x-ray: Radiologist's impression: cc: Shekhar Bragg MD~ EXAMINATION: XR ABDOMEN KUB CLINICAL INDICATION: Constipation? COMPARISON: None? TECHNIQUE: AP view of the abdomen. FINDINGS: Moderate stool in colon. There is no organomegaly. No radiopaque calculi. No gross bony abnormality. XR/XR KUB IMPRESSION: Mild constipation. ? Dictated By: Tyler Jeffery MD Signed By: <Electronically signed by Tyler Jeffery MD in OV> 08/30/21 1316 Discharge Plan Discharge Clinical Impression: Weakness, Constipation Patient Disposition: Home, Self-Care Instructions: Constipation (ED), Weakness (ED) Additional Instructions: PLEASE FOLLOW-UP WITH YOUR PRIMARY CARE PHYSICIAN TOMORROW RETURN TO THE EMERGENCY ROOM IF YOU WORSE VOMITING, FEVER ANY CONCERN Prescriptions: New lactulose 10 gram/15 mL (15 mL) solution 10 g PO DAILY Qty: 600 0RF Rx Instructions: PRN constipation,hold is diarrhea/loose stools No Action tamsulosin 0.4 mg capsule 0.4 mg PO BEDTIME 30 Days Qty: 90 3RF omeprazole 20 mg capsule,delayed release(DR/EC) 1 cap PO DAILY insulin asp prt-insulin aspart [Novolog Mix 70-30FlexPen U-100] 100 unit/mL (70-30) insulin pen 52 unit subcut DAILY naproxen 500 mg tablet 1 tab PO BID PRN (Reason: Pain) Cerovite Senior 0.4 mg-300 mcg- 250 mcg Tablet 1 tab PO DAILY pregabalin 100 mg capsule 1 cap PO BID Ingrezza 80 mg Capsule 80 mg PO DAILY amoxicillin-pot clavulanate 875-125 mg tablet 1 tab PO BID Qty: 14 0RF doxycycline hyclate 100 mg tablet 100 mg PO BID 14 Days Qty: 28 0RF Genvoya [id number] mg tablet 1 tab PO DAILY (DME) pen needle, diabetic [BD Viv 2nd Gen Pen Needle] 32 gauge x 5/32 needle See Rx Instructions .ROUTE .MEDSUPPLY Qty: 50 Rx Instructions: As directed pravastatin 40 mg tablet 40 mg PO BEDTIME lithium carbonate 300 mg tablet 900 mg PO DAILY propranolol 20 mg tablet 20 mg PO DAILY risperidone 3 mg tablet 6 mg PO BEDTIME docusate sodium 100 mg capsule 100 mg PO BID benztropine 2 mg tablet 2 mg PO BID insulin asp prt-insulin aspart [Novolog Mix 70-30FlexPen U-100] 100 unit/mL (70-30) insulin pen 38 unit subcut BEDTIME finasteride 5 mg tablet 5 mg PO DAILY 90 Days Qty: 90 1RF penicillin V potassium 250 mg tablet 250 mg PO BID 30 Days Qty: 60 1RF Referrals: Shell Lopez MD [Primary Care Provider] - 1 day Interventions: ED Discharge Assessment Last Done: 08/30/21 13:48 Discharge Date/Time: 08/30/21 13:49
[2021-08-30 07:40] VITALS: BP 114/64; PULSE 87; RESP 17; TEMP 36.8; O2SAT 97
[2021-08-30] MEDS: 0.9 % Sodium Chloride 1,000 ML 999 ML IVCONT (07:46)
[2021-08-30 09:14] LABS: COVID-19 Test Negative (Negative)
[2021-08-30 11:25] LABS: Appearance Urine CLEAR; Color Urine YELLOW; Glucose Urine UA NEG (NEG); Leukocyte Esterase Urine NEG (NEG); Nitrite Urine NEG (NEG); Urine Blood NEG (NEG); Urine Ketones NEG (NEG); Urine Protein TRACE MG/DL (NEG-TRACE)
[2021-08-30 12:15] LABS: Appearance Urine CLEAR; Color Urine YELLOW; Glucose Urine UA NEG (NEG); Leukocyte Esterase Urine NEG (NEG); Nitrite Urine NEG (NEG); PH 6.5 (5.0-8.0); Urine Blood NEG (NEG); Urine Ketones NEG (NEG); Urine Protein TRACE MG/DL (NEG-TRACE)
[2021-08-30 12:23] LABS: RBC Urine 0 /HPF (0); Squamous Epithelial Cell Urine TRACE /LPF
[2021-08-30] MEDS: Lactulose 20 GM/30 ML SOLUTION PO (13:43)
== END 2021-08-30 13:49 | disposition home or self-care (01) ==
PROVIDERS: Emergency Provider Emergency Medicine; PCP Pediatrics
DX: R50.9 Fever, unspecified (principal); K59.00 Constipation, unspecified; Z20.822 Contact with and (suspected) exposure to COVID-19; Z79.899 Other long term (current) drug therapy
CPT/HCPCS: 36415; 71046; 74018; 80053; 81001; 81003; 83605; 85025; 87040; 87635; 96360; 99284

== ENCOUNTER 2021-09-08 13:02 | Emergency (ER) | payer MEDICAID, SELFPAY ==
--- NOTE | ~2021-09-08 | XR_ITS ---
EXAMINATION: XR CHEST CLINICAL INFORMATION: Weakness COMPARISON: 08/30/2021 TECHNIQUE: Frontal view of the chest was obtained. FINDINGS: Lungs are well-inflated and clear. Trachea is midline in position. No interstitial disease, consolidation or mass. No pleural effusion or pneumothorax. Cardiac silhouette and pulmonary vessels are normal in size. The mediastinum and emiliano have normal contour. The visualized bones, and upper abdomen, are unremarkable. XR/XR chest 1V IMPRESSION: No acute cardiopulmonary abnormality.
--- NOTE | ~2021-09-08 | XR_ITS ---
EXAMINATION: XR FOOT LEFT XR FOOT RIGHT CLINICAL INFORMATION: Chronic wounds COMPARISON: 07/27/2021 TECHNIQUE: Right foot, 3 views Left foot, 3 views FINDINGS: Right foot: There is opacity from small gauze, bandage or possibly superficial tissue calcification plantar to the region of the great toe metatarsophalangeal joint. This corresponds to the same location of the wound observed on 07/27/2021. The underlying bones are intact. No acute fracture or subluxation. No erosion or periostitis. There appears to be a superficial wound plantar to the region of the fifth metatarsophalangeal joint. Again noted are prominent enthesophytes of the posterior and plantar surfaces of the calcaneus. No new findings in the foot compared to 07/27/2021. Left foot: There appears to be a superficial wound lateral and slightly plantar to the region of the fifth metatarsophalangeal joint. The underlying bones are intact. No erosions or periostitis. No acute fracture or subluxation. Again noted are prominent enthesophytes at the posterior and plantar surfaces of the calcaneus. No new abnormalities. XR/XR foot LT min 3V IMPRESSION: Again noted are superficial wounds of each forefoot. No radiographic evidence of osteomyelitis in either foot.
--- NOTE | ~2021-09-08 | XR_ITS ---
EXAMINATION: XR FOOT LEFT XR FOOT RIGHT CLINICAL INFORMATION: Chronic wounds COMPARISON: 07/27/2021 TECHNIQUE: Right foot, 3 views Left foot, 3 views FINDINGS: Right foot: There is opacity from small gauze, bandage or possibly superficial tissue calcification plantar to the region of the great toe metatarsophalangeal joint. This corresponds to the same location of the wound observed on 07/27/2021. The underlying bones are intact. No acute fracture or subluxation. No erosion or periostitis. There appears to be a superficial wound plantar to the region of the fifth metatarsophalangeal joint. Again noted are prominent enthesophytes of the posterior and plantar surfaces of the calcaneus. No new findings in the foot compared to 07/27/2021. Left foot: There appears to be a superficial wound lateral and slightly plantar to the region of the fifth metatarsophalangeal joint. The underlying bones are intact. No erosions or periostitis. No acute fracture or subluxation. Again noted are prominent enthesophytes at the posterior and plantar surfaces of the calcaneus. No new abnormalities. XR/XR foot RT min 3V IMPRESSION: Again noted are superficial wounds of each forefoot. No radiographic evidence of osteomyelitis in either foot.
[2021-09-08 13:22] VITALS: BP 127/83; PULSE 80; RESP 16; TEMP 36.9; O2SAT 98; BMI 21.2
--- NOTE | 2021-09-08 14:02 | ECG_ITS ---
Test Reason : WEAKNESS Blood Pressure : / mmHG Vent. Rate : 081 BPM Atrial Rate : 081 BPM P-R Int : 144 ms QRS Dur : 086 ms QT Int : 398 ms P-R-T Axes : 039 029 046 degrees QTc Int : 462 ms Normal sinus rhythm Normal ECG When compared with ECG of 05-MAR-2021 01:10, No significant change was found Referred By: Helen Mae Electronically Signed By:NADJA FRANCISCO MD
[2021-09-08] MEDS: 0.9 % Sodium Chloride 1,000 ML 999 ML IV (14:50)
[2021-09-08 16:17] LABS: MANUAL DIFF FLAG NO
[2021-09-08 16:19] LABS: Appearance Urine CLEAR; Color Urine YELLOW; Glucose Urine UA NEG (NEG); Leukocyte Esterase Urine NEG (NEG); Nitrite Urine NEG (NEG); PH 6.5 (5.0-8.0); Specific Gravity - Urine 1.015 (1.005-1.025); Urine Blood NEG (NEG); Urine Ketones NEG (NEG); Urine Protein TRACE MG/DL (NEG-TRACE)
[2021-09-08 16:26] LABS: Basophils Percent Auto 0.3 % (0-2); Eosinophils Absolute Auto 0.1 X10*3/uL (0.0-0.4); Eosinophils Percent Auto 0.7 % (0-4); Hematocrit 37.5 % (42.0-52.0); Hemoglobin 12.8 g/dl (14.0-18.0); Imm Gran Abs Auto 0.24 X10*3/uL (0.00-0.03); Imm Gran Pct Auto 2.6 % (0.0-0.4); Lymphocytes Absolute Auto 1.4 X10*3/uL (1.2-4.9); Lymphocytes Percent Auto 15.3 % (20-40); Mean Corpuscular HGB Conc 34.1 g/dl (31.0-36.0); Mean Corpuscular Hemoglobin 30.6 pg (27.0-33.0); Mean Corpuscular Volume 89.7 fL (80.0-98.0); Mean Platelet Volume 11.9 fL (9.4-12.4); Monocytes Absolute Auto 0.6 X10*3/uL (0.1-1.2); Monocytes Percent Auto 6.5 % (2-11); Neutrophils Absolute Auto 6.9 x10*3/uL (2.0-8.3); Neutrophils Percent Auto 74.6 % (45-73); Platelet Count 188 X10*3/uL (160-400); Red Blood Count 4.18 X10*6/uL (4.60-5.80); White Blood Count 9.2 X10*3/uL (4.8-10.8)
[2021-09-08 16:32] LABS: COVID-19 Test Positive (Negative); IDNOW Serial# 16C4AD1C
[2021-09-08 16:47] LABS: Lactic Acid 0.9 mmol/L (0.5-2.0)
[2021-09-08 16:50] LABS: Alanine Aminotransferase 20 U/L (0-40); Albumin Level 4.3 g/dL (3.5-5.0); Alkaline Phosphatase 84 U/L (39-117); Anion Gap 14 (12-20); Aspartate Amino Transferase 19 U/L (5-37); Bilirubin Direct 0.2 mg/dL (0.0-0.5); Bilirubin Total 0.4 mg/dL (0.0-1.0); Blood Urea Nitrogen 16 mg/dL (9-16); C Reactive Protein 0.81 mg/dL (< or = 0.50); Calcium 9.6 mg/dL (8.4-10.2); Carbon Dioxide 23 mmol/L (22-29); Chloride 106 mmol/L (96-108); Creatinine Clr Calc Pharmacy 46.8; Estimated Glomerular Filt Rate 46; Glucose Random 92 mg/dL (60-115); Magnesium 2.3 mg/dL (1.6-2.6); Potassium 4.2 mmol/L (3.3-5.1); Sodium 139 mmol/L (135-145); Total Protein 7.3 g/dL (6.5-8.0)
[2021-09-08 16:57] LABS: Troponin-I High Sensitivity 3.9 ng/L (<3.5-35.0)
--- NOTE | 2021-09-08 17:08 | ED.GENADULT ---
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 Per EMS patient recently discharged from [facility] with COVID-19. Patient reports symptoms overall improved today. Denies fever, abdominal pain, nausea/vomiting, lightheadedness/dizziness. Reports on antibiotics for chronic foot wounds. Onset (ago): day(s) Related Data Home Medications Medication Instructions Recorded Confirmed benztropine 2 mg tablet 2 mg PO BID 02/16/21 07/27/21 docusate sodium 100 mg capsule 100 mg PO BID 02/16/21 07/27/21 elviteg 150 mg-cob 150 mg-emtricit 1 tab PO DAILY 02/16/21 07/27/21 200 mg-tenofo alafenam 10 mg tablet (Genvoya) insulin aspar prot-insulin aspart 38 unit subcut BEDTIME 02/16/21 07/27/21 100 unit/mL (70-30) subcutaneous pen (Novolog Mix 70-30FlexPen U-100) lithium carbonate 300 mg tablet 900 mg PO DAILY 02/16/21 07/27/21 pen needle, diabetic 32 gauge x #50 ea 02/16/21 03/05/21 5/32 (BD Viv 2nd Gen Pen Needle) pravastatin 40 mg tablet 40 mg PO BEDTIME 02/16/21 07/27/21 propranolol 20 mg tablet 20 mg PO DAILY 02/16/21 07/27/21 risperidone 3 mg tablet 6 mg PO BEDTIME 02/16/21 07/27/21 insulin aspar prot-insulin aspart 52 unit subcut DAILY 03/05/21 07/27/21 100 unit/mL (70-30) subcutaneous pen (Novolog Mix 70-30FlexPen U-100) omeprazole 20 mg capsule,delayed 1 cap PO DAILY 03/05/21 07/27/21 release naproxen 500 mg tablet 1 tab PO BID PRN Pain 06/15/21 07/27/21 rvdokqgs-ela-rpynt acid 0.4 1 tab PO DAILY 07/27/21 07/27/21 mg-lycopene 300 mcg-lutein 250 mcg tablet (Cerovite Senior) pregabalin 100 mg capsule 1 cap PO BID 07/27/21 07/27/21 valbenazine 80 mg capsule 80 mg PO DAILY 07/27/21 07/27/21 (Ingrezza) bisacodyl 10 mg rectal suppository 10 mg [place] DAILY PRN constipation 09/02/21 blood sugar diagnostic (FreeStyle #10 ea 09/02/21 Lite Strips) polyethylene glycol 3350 17 17 g PO DAILY 09/02/21 gram/dose oral powder (Gavilax) sennosides 8.6 mg tablet (senna) 17.2 mg PO DAILY 09/02/21 Previous Rx's Medication Instructions Recorded finasteride 5 mg tablet 5 mg PO DAILY 90 days #90 tabs 02/16/21 tamsulosin 0.4 mg capsule 0.4 mg PO BEDTIME 30 days #90 caps 04/06/21 penicillin V potassium 250 mg 250 mg PO BID 30 days #60 tabs 05/07/21 tablet amoxicillin 875 mg-potassium 1 tab PO BID #14 tabs 07/29/21 clavulanate 125 mg tablet doxycycline hyclate 100 mg tablet 100 mg PO BID 14 days #28 tabs 08/18/21 lactulose 10 gram/15 mL (15 mL) 10 g (15 mL) PO DAILY #600 mL 08/30/21 oral solution metronidazole 500 mg tablet 500 mg PO BID 14 days #28 tabs 09/02/21 sulfamethoxazole 800 1 tab PO BID 28 days #56 tabs 09/02/21 mg-trimethoprim 160 mg tablet (Bactrim DS) Allergies Allergy/AdvReac Type Severity Reaction Status Date / Time acetaminophen [From TYLENOL] Allergy Unknown UNKNOWN Verified 09/02/21 08:36 aspirin [ASA] Allergy Unknown AGITATION Verified 09/02/21 08:36 trazodone [TRAZODONE] AdvReac Unknown HYPER Verified 09/02/21 08:36 Review of Systems Review of Systems: Constitutional: No Fever, No Chills, No Night Sweats, + Fatigue, + Malaise ENT/Mouth: No Ear Pain, No Nasal Congestion, No Hoarseness, No sore throat, No Rhinorrhea, No Swallowing Difficulty Eyes: No Eye Pain, No Swelling, No Redness, No Discharge, No Vision Changes Cardiovascular: No Chest Pain, No SOB, No Dyspnea on Exertion, No Orthopnea, No Edema, No Palpitations Respiratory: No Cough, No Sputum, No Dyspnea Gastrointestinal: No Nausea, No Vomiting, No Diarrhea, No Constipation, No Abdominal pain Genitourinary: No irregular bleeding, No Dysuria, No Urinary Frequency, No Hematuria, No Urinary Incontinence/retention, No Flank Pain Musculoskeletal: No joint pain, No Myalgias, No Joint Swelling Skin: No Skin Lesions, No rash Neuro: + Weakness, No Numbness, No Paresthesias, No Loss of Consciousness, No Dizziness, No Headache Yes all other systems are reviewed and are negative Constitutional: Constitutional: Reports as per [facility] Past Medical History Attestation statement: The following information was validated with the patient. Medical History BPH w urinary obs/LUTS Chronic prostatitis Diabetic foot ulcers Erectile dysfunction due to arterial insufficiency Eschar of foot Hepatitis HIV (human immunodeficiency virus infection) Open wnd foot-complicated Osteomyelitis of left foot Sepsis Urinary hesitancy Surgical History No pertinent past surgical history Family History Family History Father No problems noted. Mother No problems noted. Social History Social History Household Members: Unknown / Unable to assess Housing: House Do you presently have visiting nurse or other home services: Yes Unable to assess alcohol history related to: Refusing to respond Alcohol intake: former Patient Tobacco Use Status: Tobacco use Unknown Advance Directives: No Advance Directives Information Provided: No service: No Current occupational status: unemployed Physical Exam ED Vital Signs: Vital Signs - 24 hr 09/08/21 13:22 Temperature 98.5 F Pulse Rate 80 Respiratory Rate 16 Blood Pressure 127/83 Pulse Oximetry 98 Oxygen Delivery Method Room Air BMI result Body Mass Index 21.2 Const General: cooperative, healthy appearing, no acute distress, well developed, alert and awake Orientation/consciousness: patient oriented x3 Limitations: no limitations HENMT Head: Yes normal to inspection and Yes atraumatic Ears: hearing grossly normal bilaterally General nose exam: Normal external nose present Face and sinus: Yes normal facial exam Eyes General: appearance normal, both eyes and all related structures EOM: EOMs intact bilaterally Neck Neck: Yes normal visual inspection and Yes no meningeal signs Resp Effort & Inspection: normal respiratory effort and no respiratory distress Auscultation: clear to auscultation bilaterally, no crackles, no rales and no rhonchi Cardio Rate: regular rate Heart sounds: S1 normal heart sound present and S2 normal heart sound present GI Inspection: Yes normal to inspection Palpation (GI): Soft to palpation, nontender, no guarding and not rigid Skin Rashes: no rashes Wounds: no wounds Neuro General: patient oriented x3, gait normal, tone normal, moves all extremities, no meningeal signs and no focal motor deficits Cranial nerves: Yes CN's II-XII intact bilaterally Gait exam (Neuro): Normal gait present Motor exam (neuro): 5/5 motor strength present throughout and no tremor noted Extrem Other: Please refer to images above the bilateral feet. Chronic wounds/callus is appreciated. Slight malodor, no appreciable drainage, no fluctuance/induration or cellulitis. Nontender to palpation. Neurovascularly intact Course Course Course Narrative: Obtained records from [facility] patient was recently admitted on 09/01/2021, found to have COVID-19 meeting SIRS criteria. Patient had CT abdomen pelvis during admission that showed moderate stool burden otherwise unremarkable -1742--no leukocytosis. H&H at patient's baseline. ESR chronically elevated. Creatinine mildly elevated to 1.58 (baseline 1.1-1.2) >> will give IVF and repeat -CRP minimally elevated. Troponin negative. UA negative -COVID-19 positive XR chest 1V IMPRESSION: No acute cardiopulmonary abnormality. ? XR foot LT min 3V/XR foot RT min 3V IMPRESSION: Again noted are superficial wounds of each forefoot. No radiographic evidence of osteomyelitis in either foot.? -case discussed with General surgery Dr. Irvin, picture sent, is in agreement bilateral foot wounds appear chronic without needed debridement at this time. -1826--creatinine improved to 1.48 after 1 L IVF. Patient is safe for discharge back to custodial, p.o. 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 On exam vital signs stable, afebrile, known COVID-19 since 08/31, no focal neuro deficits, chronic appearing bilateral foot wounds. Concern for continued COVID-19 symptoms/fatigue vs dehydration/metabolic abnormalities. Wounds appear chronic, lower suspicion for osteomyelitis at this time, no evidence of cellulitis. Plan: EKG, labs, UA, CXR, lactic/blood cultures Medical Records Medical records reviewed: Yes I reviewed the patient's medical records. Lab Data Lab results reviewed: Yes I reviewed the patient's lab results. Result diagrams: 09/08/21 16:07 09/08/21 17:43 Labs: Lab Results 09/08/21 09/08/21 09/08/21 Range/Units 16:07 16:07 16:07 WBC 9.2 (4.8-10.8) X10*3/uL RBC 4.18 L (4.60-5.80) X10*6/uL Hgb 12.8 L (14.0-18.0) g/dl Hct 37.5 L (42.0-52.0) % MCV 89.7 (80.0-98.0) fL MCH 30.6 (27.0-33.0) pg MCHC 34.1 (31.0-36.0) g/dl RDW 12.0 (11.0-16.0) % Plt Count 188 D (160-400) X10*3/uL MPV 11.9 (9.4-12.4) fL Immature Gran % (Auto) 2.6 H (0.0-0.4) % Neut % (Auto) 74.6 H (45-73) % Lymph % (Auto) 15.3 L (20-40) % [place] % (Auto) 6.5 (2-11) % Eos % (Auto) 0.7 (0-4) % Baso % (Auto) 0.3 (0-2) % Lymph # (Auto) 1.4 (1.2-4.9) X10*3/uL [place] # (Auto) 0.6 (0.1-1.2) X10*3/uL Eos # (Auto) 0.1 (0.0-0.4) X10*3/uL Baso # (Auto) 0.0 (0.0-0.2) X10*3/uL Abs Immat Gran (auto) 0.24 H (0.00-0.03) X10*3/uL Absolute Neuts (auto) 6.9 (2.0-8.3) x10*3/uL Absolute Nucleated RBC 0.000 (0.0-0.012) X10*3/uL Nucleated RBC % (auto) 0.0 (0.0-0.2) /100WBC ESR 67 H (0-15) MM/HR Sodium 139 (135-145) mmol/L Potassium 4.2 (3.3-5.1) mmol/L Chloride 106 (96-108) mmol/L Carbon Dioxide 23 (22-29) mmol/L Anion Gap 14 (12-20) BUN 16 (9-16) mg/dL Creatinine 1.58 H (0.5-1.4) mg/dL Estim Creat Clear Calc 46.8 Estimated GFR 46 Random Glucose 92 D (60-115) mg/dL Lactic Acid (0.5-2.0) mmol/L Calcium 9.6 (8.4-10.2) mg/dL Magnesium 2.3 (1.6-2.6) mg/dL Total Bilirubin 0.4 (0.0-1.0) mg/dL Direct Bilirubin 0.2 (0.0-0.5) mg/dL AST 19 (5-37) U/L ALT 20 (0-40) U/L Alkaline Phosphatase 84 (39-117) U/L Troponin I High Sens (<3.5-35.0) ng/L C-Reactive Protein 0.81 H (< or = 0.50) mg/dL Total Protein 7.3 (6.5-8.0) g/dL Albumin 4.3 (3.5-5.0) g/dL Urine Color Urine Appearance Urine pH (5.0-8.0) Ur Specific [place] (1.005-1.025) Urine Protein (NEG-TRACE) MG/DL Urine Glucose (UA) (NEG) MG/DL Urine Ketones (NEG) MG/DL Urine Blood (NEG) Urine Nitrite (NEG) Ur Leukocyte Esterase (NEG) COVID-19 (BETHANY) (Negative) COVID-19 Clin Com 09/08/21 09/08/21 09/08/21 Range/Units 16:07 16:07 16:07 WBC (4.8-10.8) X10*3/uL RBC (4.60-5.80) X10*6/uL Hgb (14.0-18.0) g/dl Hct (42.0-52.0) % MCV (80.0-98.0) fL MCH (27.0-33.0) pg MCHC (31.0-36.0) g/dl RDW (11.0-16.0) % Plt Count (160-400) X10*3/uL MPV (9.4-12.4) fL Immature Gran % (Auto) (0.0-0.4) % Neut % (Auto) (45-73) % Lymph % (Auto) (20-40) % [place] % (Auto) (2-11) % Eos % (Auto) (0-4) % Baso % (Auto) (0-2) % Lymph # (Auto) (1.2-4.9) X10*3/uL [place] # (Auto) (0.1-1.2) X10*3/uL Eos # (Auto) (0.0-0.4) X10*3/uL Baso # (Auto) (0.0-0.2) X10*3/uL Abs Immat Gran (auto) (0.00-0.03) X10*3/uL Absolute Neuts (auto) (2.0-8.3) x10*3/uL Absolute Nucleated RBC (0.0-0.012) X10*3/uL Nucleated RBC % (auto) (0.0-0.2) /100WBC ESR (0-15) MM/HR Sodium (135-145) mmol/L Potassium (3.3-5.1) mmol/L Chloride (96-108) mmol/L Carbon Dioxide (22-29) mmol/L Anion Gap (12-20) BUN (9-16) mg/dL Creatinine (0.5-1.4) mg/dL Estim Creat Clear Calc Estimated GFR Random Glucose (60-115) mg/dL Lactic Acid 0.9 (0.5-2.0) mmol/L Calcium (8.4-10.2) mg/dL Magnesium (1.6-2.6) mg/dL Total Bilirubin (0.0-1.0) mg/dL Direct Bilirubin (0.0-0.5) mg/dL AST (5-37) U/L ALT (0-40) U/L Alkaline Phosphatase (39-117) U/L Troponin I High Sens 3.9 (<3.5-35.0) ng/L C-Reactive Protein (< or = 0.50) mg/dL Total Protein (6.5-8.0) g/dL Albumin (3.5-5.0) g/dL Urine Color Urine Appearance Urine pH (5.0-8.0) Ur Specific [place] (1.005-1.025) Urine Protein (NEG-TRACE) MG/DL Urine Glucose (UA) (NEG) MG/DL Urine Ketones (NEG) MG/DL Urine Blood (NEG) Urine Nitrite (NEG) Ur Leukocyte Esterase (NEG) COVID-19 (BETHANY) Positive A (Negative) COVID-19 Clin Com See Note 09/08/21 09/08/21 Range/Units 16:07 17:43 WBC (4.8-10.8) X10*3/uL RBC (4.60-5.80) X10*6/uL Hgb (14.0-18.0) g/dl Hct (42.0-52.0) % MCV (80.0-98.0) fL MCH (27.0-33.0) pg MCHC (31.0-36.0) g/dl RDW (11.0-16.0) % Plt Count (160-400) X10*3/uL MPV (9.4-12.4) fL Immature Gran % (Auto) (0.0-0.4) % Neut % (Auto) (45-73) % Lymph % (Auto) (20-40) % [place] % (Auto) (2-11) % Eos % (Auto) (0-4) % Baso % (Auto) (0-2) % Lymph # (Auto) (1.2-4.9) X10*3/uL [place] # (Auto) (0.1-1.2) X10*3/uL Eos # (Auto) (0.0-0.4) X10*3/uL Baso # (Auto) (0.0-0.2) X10*3/uL Abs Immat Gran (auto) (0.00-0.03) X10*3/uL Absolute Neuts (auto) (2.0-8.3) x10*3/uL Absolute Nucleated RBC (0.0-0.012) X10*3/uL Nucleated RBC % (auto) (0.0-0.2) /100WBC ESR (0-15) MM/HR Sodium 139 (135-145) mmol/L Potassium 3.9 (3.3-5.1) mmol/L Chloride 108 (96-108) mmol/L Carbon Dioxide 22 (22-29) mmol/L Anion Gap 13 (12-20) BUN 15 (9-16) mg/dL Creatinine 1.48 H (0.5-1.4) mg/dL Estim Creat Clear Calc 50.0 Estimated GFR 49 Random Glucose 89 (60-115) mg/dL Lactic Acid (0.5-2.0) mmol/L Calcium 9.2 (8.4-10.2) mg/dL Magnesium (1.6-2.6) mg/dL Total Bilirubin (0.0-1.0) mg/dL Direct Bilirubin (0.0-0.5) mg/dL AST (5-37) U/L ALT (0-40) U/L Alkaline Phosphatase (39-117) U/L Troponin I High Sens (<3.5-35.0) ng/L C-Reactive Protein (< or = 0.50) mg/dL Total Protein (6.5-8.0) g/dL Albumin (3.5-5.0) g/dL Urine Color YELLOW Urine Appearance CLEAR Urine pH 6.5 (5.0-8.0) Ur Specific [place] 1.015 (1.005-1.025) Urine Protein TRACE (NEG-TRACE) MG/DL Urine Glucose (UA) NEG (NEG) MG/DL Urine Ketones NEG (NEG) MG/DL Urine Blood NEG (NEG) Urine Nitrite NEG (NEG) Ur Leukocyte Esterase NEG (NEG) COVID-19 (BETHANY) (Negative) COVID-19 Clin Com Discharge Plan Discharge Clinical Impression: Generalized weakness, COVID-19 Patient Disposition: Home, Self-Care Instructions: Weakness (ED), COVID-19 (Coronavirus Disease 2019) (ED) Additional Instructions: Your blood work and imaging studies were reassuring, you're mildly dehydrated please increase oral intake at home. Continue home prescribed medications. It is important for you to continue to follow-up with wound clinic. You have COVID-19, continue to self isolate. The symptoms are likely related to your COVID-19 status. If you develop constant or worsening shortness of breath, chest pain, fevers unresolved medications return to the emergency department Emilie an?lisis de michelle y estudios de im?genes fueron tranquilizadores, est? levemente deshidratado, aumente la ingesta oral en casa. Contin?e con los medicamentos recetados en casa. Es importante que contin?e con el seguimiento en la cl?fabio de heridas. Tiene COVID-19, contin?e aisl?ndose. Es probable que los s?ntomas est?n relacionados con hood estado de COVID-19. Si desarrolla dificultad para respirar cindy o que empeora, dolor en el pecho, fiebre, medicamentos no resueltos, regrese al departamento de emergencias. Prescriptions: No Action tamsulosin 0.4 mg capsule 0.4 mg PO BEDTIME 30 Days Qty: 90 3RF omeprazole 20 mg capsule,delayed release(DR/EC) 1 cap PO DAILY insulin asp prt-insulin aspart [Novolog Mix 70-30FlexPen U-100] 100 unit/mL (70-30) insulin pen 52 unit subcut DAILY lactulose 10 gram/15 mL (15 mL) solution 10 g PO DAILY Qty: 600 0RF Rx Instructions: PRN constipation,hold is diarrhea/loose stools naproxen 500 mg tablet 1 tab PO BID PRN (Reason: Pain) Cerovite Senior 0.4 mg-300 mcg- 250 mcg Tablet 1 tab PO DAILY pregabalin 100 mg capsule 1 cap PO BID Ingrezza 80 mg Capsule 80 mg PO DAILY amoxicillin-pot clavulanate 875-125 mg tablet 1 tab PO BID Qty: 14 0RF doxycycline hyclate 100 mg tablet 100 mg PO BID 14 Days Qty: 28 0RF Genvoya [id number] mg tablet 1 tab PO DAILY (DME) pen needle, diabetic [BD Viv 2nd Gen Pen Needle] 32 gauge x 5/32 needle See Rx Instructions .ROUTE .MEDSUPPLY Qty: 50 Rx Instructions: As directed pravastatin 40 mg tablet 40 mg PO BEDTIME lithium carbonate 300 mg tablet 900 mg PO DAILY propranolol 20 mg tablet 20 mg PO DAILY risperidone 3 mg tablet 6 mg PO BEDTIME docusate sodium 100 mg capsule 100 mg PO BID benztropine 2 mg tablet 2 mg PO BID insulin asp prt-insulin aspart [Novolog Mix 70-30FlexPen U-100] 100 unit/mL (70-30) insulin pen 38 unit subcut BEDTIME finasteride 5 mg tablet 5 mg PO DAILY 90 Days Qty: 90 1RF penicillin V potassium 250 mg tablet 250 mg PO BID 30 Days Qty: 60 1RF bisacodyl 10 mg suppository 10 mg [place] DAILY PRN (Reason: constipation) sennosides [senna] 8.6 mg tablet 17.2 mg PO DAILY polyethylene glycol 3350 [Gavilax] 17 gram/dose powder 17 g PO DAILY (DME) FreeStyle Lite Strips Strip See Rx Instructions Not Applicable QID Qty: 10 Rx Instructions: As directed sulfamethoxazole-trimethoprim [Bactrim DS] 800-160 mg tablet 1 tab PO BID 28 Days Qty: 56 0RF metronidazole 500 mg tablet 500 mg PO BID 14 Days Qty: 28 0RF Referrals: Physician,Unknown J [Primary Care Provider] - Print Language: Senegalese
[2021-09-08 17:32] LABS: Erythrocyte Sedimentation Rate 67 MM/HR (0-15)
[2021-09-08 18:14] LABS: Anion Gap 13 (12-20); Blood Urea Nitrogen 15 mg/dL (9-16); Calcium 9.2 mg/dL (8.4-10.2); Carbon Dioxide 22 mmol/L (22-29); Chloride 108 mmol/L (96-108); Estimated Glomerular Filt Rate 49; Glucose Random 89 mg/dL (60-115); Potassium 3.9 mmol/L (3.3-5.1); Sodium 139 mmol/L (135-145)
== END 2021-09-08 19:15 | disposition home or self-care (01) ==
PROVIDERS: Physician Assistant; Emergency Provider Emergency Medicine Emergency Medical Services
DX: U07.1 COVID-19 (principal); E11.9 Type 2 diabetes mellitus without complications; M79.672 Pain in left foot; R07.89 Other chest pain; Z79.4 Long term (current) use of insulin; Z79.899 Other long term (current) drug therapy
CPT/HCPCS: 71045; 73630; 80048; 80076; 81003; 83605; 83735; 84484; 85025; 85652; 86140; 87040; 87635; 93005; 96360; 99284

== ENCOUNTER 2021-10-11 19:50 | Inpatient (IN) | payer MEDICAID, SELFPAY ==
--- NOTE | ~2021-10-11 | CT_ITS ---
EXAMINATION: CT ABDOMEN WITH CONTRAST CLINICAL INFORMATION: Enterococcus bacteremia. Question abdominal source. COMPARISON: Previous CT of the abdomen and pelvis February 2021 TECHNIQUE: Contiguous axial thin section helical images of the abdomen were performed following the administration of oral contrast and 85 mL of Omnipaque 350 intravenous contrast. The data set was reformatted in the coronal and sagittal planes and reviewed on an independent workstation. This CT examination was performed using dose optimization techniques as appropriate, variously including the following: *Automated exposure control *Adjustment of mA and/or kV according to patient size (this includes techniques or standardized protocols for targeted exams where dose is matched to indication/reason for exam; i.e. extremities or head) *Use of iterative reconstruction technique DLP: 421 mGy-cm FINDINGS: LUNG BASES: The lung bases are clear. LIVER, GALLBLADDER, AND BILIARY TREE: Normal. PANCREAS: Normal SPLEEN: Normal ADRENAL GLANDS AND KIDNEYS: The adrenal glands are normal. There are several left renal cysts, largest measuring 2 cm in the upper pole. The kidneys are otherwise normal. No stone or hydronephrosis. BOWEL LOOPS: There is mild diverticulosis of the colon. Small and large bowel is otherwise unremarkable. The appendix is normal. The stomach is normal. LYMPH NODES: Normal. VASCULAR: Unremarkable. The pelvis was inadvertently imaged which is normal. BONES: Normal. CT/CT abdomen w IV con IMPRESSION: Unremarkable exam. Small left renal cysts. Fleischner guidelines were followed.
--- NOTE | ~2021-10-11 | CT_ITS ---
EXAMINATION: CT HEAD WITHOUT CONTRAST CLINICAL INFORMATION: Unwitnessed fall COMPARISON: CT head 06/15/2021 TECHNIQUE: Contiguous axial imaging was performed from the skull base to vertex without intravenous administration of contrast. Coronal and sagittal reformatted images are performed at the CT scanner. [This CT examination was performed using dose optimization techniques as appropriate, variously including the following: *Automated exposure control *Adjustment of mA and/or kV according to patient size (this includes techniques or standardized protocols for targeted exams where dose is matched to indication/reason for exam; i.e. extremities or head) *Use of iterative reconstruction technique] DLP: 700 mGy-cm. FINDINGS: There is no evidence of acute intracranial hemorrhage or territorial infarction. No abnormal mass-effect or midline shift is seen. Rivera to white matter differentiation is well preserved. No extra-axial fluid collections are identified. The ventricles are normal in size. There is no abnormal attenuation within the brain parenchyma. There is no osseous abnormality. The mastoid air cells and visualized portions of the paranasal sinuses are well-aerated. CT/CT head/brain wo IV con IMPRESSION: No acute intracranial pathology.
--- NOTE | ~2021-10-11 | XR_ITS ---
EXAMINATION: XR CHEST CLINICAL INFORMATION: Fever COMPARISON: Chest x-ray 09/08/2021 TECHNIQUE: Frontal view of the chest was obtained. FINDINGS: Slightly prominent reticular markings within both lungs. No jo airspace consolidation. No pleural effusion or pneumothorax. Unchanged cardiomediastinal silhouette. No cardiomegaly or evidence pulmonary edema. No acute osseous injury. XR/XR chest 1V IMPRESSION: 1. Slightly increased reticular markings within both lungs, nonspecific, possibly atypical infection/pneumonia. 2. No jo airspace consolidation or effusions.
[2021-10-11 20:04] VITALS: BP 100/47; BP 118/76; PULSE 103; PULSE 86; RESP 16; TEMP 39.2; O2SAT 100; O2SAT 95; BMI 22.3
--- NOTE | 2021-10-11 20:11 | ED.FALL ---
HPI - Fall General Chief Complaint: Fever Stated Complaint: fall Time Seen by Provider: 10/11/21 20:05 Related Data Home Medications Medication Instructions Recorded Confirmed benztropine 2 mg tablet 2 mg PO BID 02/16/21 07/27/21 docusate sodium 100 mg capsule 100 mg PO BID 02/16/21 07/27/21 elviteg 150 mg-cob 150 mg-emtricit 1 tab PO DAILY 02/16/21 07/27/21 200 mg-tenofo alafenam 10 mg tablet (Genvoya) insulin aspar prot-insulin aspart 38 unit subcut BEDTIME 02/16/21 07/27/21 100 unit/mL (70-30) subcutaneous pen (Novolog Mix 70-30FlexPen U-100) lithium carbonate 300 mg tablet 900 mg PO DAILY 02/16/21 07/27/21 pen needle, diabetic 32 gauge x #50 ea 02/16/21 03/05/21 (BD Viv 2nd Gen Pen Needle) pravastatin 40 mg tablet 40 mg PO BEDTIME 02/16/21 07/27/21 propranolol 20 mg tablet 20 mg PO DAILY 02/16/21 07/27/21 risperidone 3 mg tablet 6 mg PO BEDTIME 02/16/21 07/27/21 insulin aspar prot-insulin aspart 52 unit subcut DAILY 03/05/21 07/27/21 100 unit/mL (70-30) subcutaneous pen (Novolog Mix 70-30FlexPen U-100) omeprazole 20 mg capsule,delayed 1 cap PO DAILY 03/05/21 07/27/21 release naproxen 500 mg tablet 1 tab PO BID PRN Pain 06/15/21 07/27/21 rwcgbrod-bzl-pkdmk acid 0.4 1 tab PO DAILY 07/27/21 07/27/21 mg-lycopene 300 mcg-lutein 250 mcg tablet (Cerovite Senior) pregabalin 100 mg capsule 1 cap PO BID 07/27/21 07/27/21 valbenazine 80 mg capsule 80 mg PO DAILY 07/27/21 07/27/21 (Ingrezza) bisacodyl 10 mg rectal suppository 10 mg [place] DAILY PRN constipation 09/02/21 blood sugar diagnostic (FreeStyle #10 ea 09/02/21 Lite Strips) polyethylene glycol 3350 17 17 g PO DAILY 09/02/21 gram/dose oral powder (Gavilax) sennosides 8.6 mg tablet (senna) 17.2 mg PO DAILY 09/02/21 Previous Rx's Medication Instructions Recorded tamsulosin 0.4 mg capsule 0.4 mg PO BEDTIME 30 days #90 caps 04/06/21 penicillin V potassium 250 mg 250 mg PO BID 30 days #60 tabs 05/07/21 tablet amoxicillin 875 mg-potassium 1 tab PO BID #14 tabs 07/29/21 clavulanate 125 mg tablet doxycycline hyclate 100 mg tablet 100 mg PO BID 14 days #28 tabs 08/18/21 lactulose 10 gram/15 mL (15 mL) 10 g (15 mL) PO DAILY #600 mL 08/30/21 oral solution metronidazole 500 mg tablet 500 mg PO BID 14 days #28 tabs 09/02/21 sulfamethoxazole 800 1 tab PO BID 28 days #56 tabs 09/02/21 mg-trimethoprim 160 mg tablet (Bactrim DS) finasteride 5 mg tablet 5 mg PO DAILY 90 days #90 tabs 09/16/21 Allergies Allergy/AdvReac Type Severity Reaction Status Date / Time acetaminophen [From TYLENOL] Allergy Unknown UNKNOWN Verified 09/02/21 08:36 aspirin [ASA] Allergy Unknown AGITATION Verified 09/02/21 08:36 trazodone [TRAZODONE] AdvReac Unknown HYPER Verified 09/02/21 08:36 PMFSH Past Medical History Medical History BPH w urinary obs/LUTS Chronic prostatitis Diabetic foot ulcers Erectile dysfunction due to arterial insufficiency Eschar of foot Hepatitis HIV (human immunodeficiency virus infection) Open wnd foot-complicated Osteomyelitis of left foot Sepsis Urinary hesitancy Surgical History No pertinent past surgical history Family History Family History Father No problems noted. Mother No problems noted. Social History Social History Household Members: Unknown / Unable to assess Housing: House Do you presently have visiting nurse or other home services: Yes Unable to assess alcohol history related to: Refusing to respond Alcohol intake: former Patient Tobacco Use Status: Tobacco use Unknown service: No Current occupational status: unemployed Physical Exam Vital Signs: Vital Signs: Last Vital Signs Temp 102.5 F H 10/11/21 20:04 Pulse 103 H 10/11/21 20:04 Resp 16 10/11/21 20:04 BP 100/47 L 10/11/21 20:04 Pulse Ox 95 10/11/21 20:04 O2 Del Method 10/11/21 20:04 BMI result Body Mass Index 22.3 Discharge Plan Discharge Prescriptions: No Action tamsulosin 0.4 mg capsule 0.4 mg PO BEDTIME 30 Days Qty: 90 3RF finasteride 5 mg tablet 5 mg PO DAILY 90 Days Qty: 90 1RF omeprazole 20 mg capsule,delayed release(DR/EC) 1 cap PO DAILY insulin asp prt-insulin aspart [Novolog Mix 70-30FlexPen U-100] 100 unit/mL (70-30) insulin pen 52 unit subcut DAILY lactulose 10 gram/15 mL (15 mL) solution 10 g PO DAILY Qty: 600 0RF Rx Instructions: PRN constipation,hold is diarrhea/loose stools naproxen 500 mg tablet 1 tab PO BID PRN (Reason: Pain) Cerovite Senior 0.4 mg-300 mcg- 250 mcg Tablet 1 tab PO DAILY pregabalin 100 mg capsule 1 cap PO BID Ingrezza 80 mg Capsule 80 mg PO DAILY amoxicillin-pot clavulanate 875-125 mg tablet 1 tab PO BID Qty: 14 0RF doxycycline hyclate 100 mg tablet 100 mg PO BID 14 Days Qty: 28 0RF Genvoya [phone] mg tablet 1 tab PO DAILY (DME) pen needle, diabetic [BD Viv 2nd Gen Pen Needle] 32 gauge x 5/32 needle See Rx Instructions .ROUTE .MEDSUPPLY Qty: 50 Rx Instructions: As directed pravastatin 40 mg tablet 40 mg PO BEDTIME lithium carbonate 300 mg tablet 900 mg PO DAILY propranolol 20 mg tablet 20 mg PO DAILY risperidone 3 mg tablet 6 mg PO BEDTIME docusate sodium 100 mg capsule 100 mg PO BID benztropine 2 mg tablet 2 mg PO BID insulin asp prt-insulin aspart [Novolog Mix 70-30FlexPen U-100] 100 unit/mL (70-30) insulin pen 38 unit subcut BEDTIME penicillin V potassium 250 mg tablet 250 mg PO BID 30 Days Qty: 60 1RF bisacodyl 10 mg suppository 10 mg [place] DAILY PRN (Reason: constipation) sennosides [senna] 8.6 mg tablet 17.2 mg PO DAILY polyethylene glycol 3350 [Gavilax] 17 gram/dose powder 17 g PO DAILY (DME) FreeStyle Lite Strips Strip See Rx Instructions Not Applicable QID Qty: 10 Rx Instructions: As directed sulfamethoxazole-trimethoprim [Bactrim DS] 800-160 mg tablet 1 tab PO BID 28 Days Qty: 56 0RF metronidazole 500 mg tablet 500 mg PO BID 14 Days Qty: 28 0RF
--- NOTE | 2021-10-11 20:22 | ECG_ITS ---
Test Reason : FEVER Blood Pressure : / mmHG Vent. Rate : 105 BPM Atrial Rate : 000 BPM P-R Int : 000 ms QRS Dur : 086 ms QT Int : 498 ms P-R-T Axes : 000 027 054 degrees QTc Int : 658 ms Sinus tachycardia Nonspecific T wave abnormality Prolonged QT Abnormal ECG When compared with ECG of 08-SEP-2021 14:10, Nonspecific T wave abnormality is now Present QT has lengthened Heart rate has increased Referred By: Emily Mcnair Electronically Signed By:CATARINO MARRERO
--- NOTE | 2021-10-11 20:40 | ED_ITS ---
HPI - General Adult General Chief complaint: Fever Stated complaint: fall Time Seen by Provider: 10/11/21 20:05 History of Present Illness HPI narrative: Patient is 55 years old with history of bilateral diabetic foot, hyperlipidemia, HIV with undetectable viral load, BPH, CKD stage 2 with history of group B bacteremia in 02/27 ,with history of osteomyelitis [facility]. Without significant injuries. Patient also noticed to have fever temperature 102.5 degrees on arrival Related Data Home Medications Medication Instructions Recorded Confirmed benztropine 2 mg tablet 2 mg PO BID 02/16/21 07/27/21 docusate sodium 100 mg capsule 100 mg PO BID 02/16/21 07/27/21 elviteg 150 mg-cob 150 mg-emtricit 1 tab PO DAILY 02/16/21 07/27/21 200 mg-tenofo alafenam 10 mg tablet (Genvoya) insulin aspar prot-insulin aspart 38 unit subcut BEDTIME 02/16/21 07/27/21 100 unit/mL (70-30) subcutaneous pen (Novolog Mix 70-30FlexPen U-100) lithium carbonate 300 mg tablet 900 mg PO DAILY 02/16/21 07/27/21 pen needle, diabetic 32 gauge x #50 ea 02/16/21 03/05/21 (BD Viv 2nd Gen Pen Needle) pravastatin 40 mg tablet 40 mg PO BEDTIME 02/16/21 07/27/21 propranolol 20 mg tablet 20 mg PO DAILY 02/16/21 07/27/21 risperidone 3 mg tablet 6 mg PO BEDTIME 02/16/21 07/27/21 insulin aspar prot-insulin aspart 52 unit subcut DAILY 03/05/21 07/27/21 100 unit/mL (70-30) subcutaneous pen (Novolog Mix 70-30FlexPen U-100) omeprazole 20 mg capsule,delayed 1 cap PO DAILY 03/05/21 07/27/21 release naproxen 500 mg tablet 1 tab PO BID PRN Pain 06/15/21 07/27/21 rhvmcumi-cqt-lkfxh acid 0.4 1 tab PO DAILY 07/27/21 07/27/21 mg-lycopene 300 mcg-lutein 250 mcg tablet (Cerovite [facility]) pregabalin 100 mg capsule 1 cap PO BID 07/27/21 07/27/21 valbenazine 80 mg capsule 80 mg PO DAILY 07/27/21 07/27/21 (Ingrezza) bisacodyl 10 mg rectal suppository 10 mg [place] DAILY PRN constipation 09/02/21 blood sugar diagnostic (FreeStyle #10 ea 09/02/21 Lite Strips) polyethylene glycol 3350 17 17 g PO DAILY 09/02/21 gram/dose oral powder (Gavilax) sennosides 8.6 mg tablet (senna) 17.2 mg PO DAILY 09/02/21 Previous Rx's Medication Instructions Recorded tamsulosin 0.4 mg capsule 0.4 mg PO BEDTIME 30 days #90 caps 04/06/21 penicillin V potassium 250 mg 250 mg PO BID 30 days #60 tabs 05/07/21 tablet amoxicillin 875 mg-potassium 1 tab PO BID #14 tabs 07/29/21 clavulanate 125 mg tablet doxycycline hyclate 100 mg tablet 100 mg PO BID 14 days #28 tabs 08/18/21 lactulose 10 gram/15 mL (15 mL) 10 g (15 mL) PO DAILY #600 mL 08/30/21 oral solution metronidazole 500 mg tablet 500 mg PO BID 14 days #28 tabs 09/02/21 sulfamethoxazole 800 1 tab PO BID 28 days #56 tabs 09/02/21 mg-trimethoprim 160 mg tablet (Bactrim DS) finasteride 5 mg tablet 5 mg PO DAILY 90 days #90 tabs 09/16/21 Allergies Allergy/AdvReac Type Severity Reaction Status Date / Time acetaminophen [From TYLENOL] Allergy Unknown UNKNOWN Verified 09/02/21 08:36 aspirin [ASA] Allergy Unknown AGITATION Verified 09/02/21 08:36 trazodone [TRAZODONE] AdvReac Unknown HYPER Verified 09/02/21 08:36 Review of Systems Review of Systems: Yes all other systems are reviewed and are negative PMFSH Past Medical History Medical History BPH w urinary obs/LUTS Chronic prostatitis Diabetic foot ulcers Erectile dysfunction due to arterial insufficiency Eschar of foot Hepatitis HIV (human immunodeficiency virus infection) Open wnd foot-complicated Osteomyelitis of left foot Sepsis Urinary hesitancy Surgical History No pertinent past surgical history Family History Family History Father No problems noted. Mother No problems noted. Social History Social History Household Members: Unknown / Unable to assess Housing: House Do you presently have visiting nurse or other home services: Yes Unable to assess alcohol history related to: Refusing to respond Alcohol intake: former Patient Tobacco Use Status: Tobacco use Unknown Advance Directives: No Advance Directives Information Provided: No service: No Current occupational status: unemployed Physical Exam ED Vital Signs: Vital Signs - 24 hr 10/11/21 20:04 10/11/21 21:48 10/11/21 22:06 Temperature 102.5 F H 99.5 F 99.3 F Pulse Rate 103 H 107 H 102 H Respiratory Rate 16 19 18 Blood Pressure 100/47 L 96/51 L 105/58 L Pulse Oximetry 95 95 95 Oxygen Delivery Method Room Air Room Air Room Air BMI result Body Mass Index 22.3 Appearance: Alert. Oriented X3. No acute distress. Febrile Eyes: PERRLA, No Nystagmus ENT: Pharynx normal. Oral Mucosa moist Neck: Normal inspection. Neck supple. CVS: Normal heart rate and rhythm. Pulses normal. Respiratory: No respiratory distress. Equal air entry bilateral, no wheezing/rales/rhonchi Abdomen: Soft and nontender. Bowel sounds are present, no mass palpable, no CVA tenderness Skin: Skin warm and dry. Normal skin color. Normal skin turgor. Extremities: No lower extremity edema. No calf tenderness Neuro: Oriented X 3. No motor deficit. No sensory deficit.No cerebellar signs , cranial nerves II-XII intact Medical Decision Making MDM Narrative Medical decision making narrative: Patient with high-grade fever lactic acidosis with history of HIV and strep bacteremia chest x-ray with bilateral infiltrate possibly the cause for fever will give IV Rocephin and doxycycline blood cultures were drawn will admit patient for pneumonia and fever Lab Data Lab results reviewed: Yes I reviewed the patient's lab results. Result diagrams: 10/11/21 20:41 10/11/21 20:41 Labs: Lab Results 10/11/21 10/11/21 10/11/21 Range/Units 20:41 20:41 20:41 WBC 10.5 (4.8-10.8) X10*3/uL RBC 3.71 L (4.60-5.80) X10*6/uL Hgb 11.5 L (14.0-18.0) g/dl Hct 33.9 L (42.0-52.0) % MCV 91.4 (80.0-98.0) fL MCH 31.0 (27.0-33.0) pg MCHC 33.9 (31.0-36.0) g/dl RDW 13.0 (11.0-16.0) % Plt Count 144 L (160-400) X10*3/uL MPV 11.1 (9.4-12.4) fL Immature Gran % (Auto) 0.5 H (0.0-0.4) % Neut % (Auto) 95.9 H (45-73) % Lymph % (Auto) 1.3 L (20-40) % [place] % (Auto) 1.6 L (2-11) % Eos % (Auto) 0.4 (0-4) % Baso % (Auto) 0.3 (0-2) % Lymph # (Auto) 0.1 L (1.2-4.9) X10*3/uL [place] # (Auto) 0.2 (0.1-1.2) X10*3/uL Eos # (Auto) 0.0 (0.0-0.4) X10*3/uL Baso # (Auto) 0.0 (0.0-0.2) X10*3/uL Abs Immat Gran (auto) 0.05 H (0.00-0.03) X10*3/uL Absolute Neuts (auto) 10.0 H (2.0-8.3) x10*3/uL Absolute Nucleated RBC 0.000 (0.0-0.012) X10*3/uL Nucleated RBC % (auto) 0.0 (0.0-0.2) /100WBC Smear Tech's Comments VERIFIED Sodium 139 (135-145) mmol/L Potassium 3.4 (3.3-5.1) mmol/L Chloride 108 (96-108) mmol/L Carbon Dioxide 21 L (22-29) mmol/L Anion Gap 13 (12-20) BUN 18 H (9-16) mg/dL Creatinine 1.40 (0.5-1.4) mg/dL Estim Creat Clear Calc 55.5 Estimated GFR 52 Random Glucose 193 H D (60-115) mg/dL Lactic Acid 2.3 H* (0.5-2.0) mmol/L Calcium 9.2 (8.4-10.2) mg/dL Magnesium 1.7 (1.6-2.6) mg/dL Total Bilirubin 0.3 (0.0-1.0) mg/dL Direct Bilirubin < 0.2 (0.0-0.5) mg/dL AST 50 H D (5-37) U/L ALT 39 (0-40) U/L Alkaline Phosphatase 104 D (39-117) U/L Troponin I High Sens (<3.5-35.0) ng/L Total Protein 6.7 (6.5-8.0) g/dL Albumin 4.0 (3.5-5.0) g/dL COVID-19 (BETHANY) (Negative) COVID-19 Clin Com 10/11/21 10/11/21 Range/Units 20:42 20:48 WBC (4.8-10.8) X10*3/uL RBC (4.60-5.80) X10*6/uL Hgb (14.0-18.0) g/dl Hct (42.0-52.0) % MCV (80.0-98.0) fL MCH (27.0-33.0) pg MCHC (31.0-36.0) g/dl RDW (11.0-16.0) % Plt Count (160-400) X10*3/uL MPV (9.4-12.4) fL Immature Gran % (Auto) (0.0-0.4) % Neut % (Auto) (45-73) % Lymph % (Auto) (20-40) % [place] % (Auto) (2-11) % Eos % (Auto) (0-4) % Baso % (Auto) (0-2) % Lymph # (Auto) (1.2-4.9) X10*3/uL [place] # (Auto) (0.1-1.2) X10*3/uL Eos # (Auto) (0.0-0.4) X10*3/uL Baso # (Auto) (0.0-0.2) X10*3/uL Abs Immat Gran (auto) (0.00-0.03) X10*3/uL Absolute Neuts (auto) (2.0-8.3) x10*3/uL Absolute Nucleated RBC (0.0-0.012) X10*3/uL Nucleated RBC % (auto) (0.0-0.2) /100WBC Smear Tech's Comments Sodium (135-145) mmol/L Potassium (3.3-5.1) mmol/L Chloride (96-108) mmol/L Carbon Dioxide (22-29) mmol/L Anion Gap (12-20) BUN (9-16) mg/dL Creatinine (0.5-1.4) mg/dL Estim Creat Clear Calc Estimated GFR Random Glucose (60-115) mg/dL Lactic Acid (0.5-2.0) mmol/L Calcium (8.4-10.2) mg/dL Magnesium (1.6-2.6) mg/dL Total Bilirubin (0.0-1.0) mg/dL Direct Bilirubin (0.0-0.5) mg/dL AST (5-37) U/L ALT (0-40) U/L Alkaline Phosphatase (39-117) U/L Troponin I High Sens 4.7 (<3.5-35.0) ng/L Total Protein (6.5-8.0) g/dL Albumin (3.5-5.0) g/dL COVID-19 (BETHANY) Negative (Negative) COVID-19 Clin Com See Note ECG Data Attestation: I personally reviewed and interpreted this ECG as follows: Interpretation: Sinus tachycardia with heart rate of 105 beats per minute prolonged QT interval no acute ST-T change and no acute ischemia Discharge Plan Discharge Clinical Impression: Fever, Pneumonia Patient Disposition: Admitted As Inpatient
[2021-10-11] MEDS: Acetaminophen 325 MG TABLET 650 MG PO (20:55)
[2021-10-11] MEDS: cefTRIAXone sodium 1 GM in 0.9 % Sodium Chloride 50 ML IV (20:55)
[2021-10-11] MEDS: 0.9 % Sodium Chloride 1,000 ML 999 ML IVCONT (20:55)
[2021-10-11 21:10] LABS: Basophils Percent Auto 0.3 % (0-2); Eosinophils Percent Auto 0.4 % (0-4); Hematocrit 33.9 % (42.0-52.0); Hemoglobin 11.5 g/dl (14.0-18.0); Imm Gran Abs Auto 0.05 X10*3/uL (0.00-0.03); Imm Gran Pct Auto 0.5 % (0.0-0.4); Lymphocytes Absolute Auto 0.1 X10*3/uL (1.2-4.9); Lymphocytes Percent Auto 1.3 % (20-40); MANUAL DIFF FLAG SCAN; Mean Corpuscular HGB Conc 33.9 g/dl (31.0-36.0); Mean Corpuscular Volume 91.4 fL (80.0-98.0); Mean Platelet Volume 11.1 fL (9.4-12.4); Monocytes Absolute Auto 0.2 X10*3/uL (0.1-1.2); Monocytes Percent Auto 1.6 % (2-11); Neutrophils Percent Auto 95.9 % (45-73); Platelet Count 144 X10*3/uL (160-400); Red Blood Count 3.71 X10*6/uL (4.60-5.80); SCAN SMEAR FLAG 1; White Blood Count 10.5 X10*3/uL (4.8-10.8)
[2021-10-11 21:12] LABS: COVID-19 Test Negative (Negative); IDNOW Serial# 16C4AD1C
[2021-10-11 21:13] LABS: Alanine Aminotransferase 39 U/L (0-40); Alkaline Phosphatase 104 U/L (39-117); Anion Gap 13 (12-20); Aspartate Amino Transferase 50 U/L (5-37); Bilirubin Direct < 0.2 mg/dL (0.0-0.5); Bilirubin Total 0.3 mg/dL (0.0-1.0); Blood Urea Nitrogen 18 mg/dL (9-16); Calcium 9.2 mg/dL (8.4-10.2); Carbon Dioxide 21 mmol/L (22-29); Chloride 108 mmol/L (96-108); Creatinine Clr Calc Pharmacy 55.5; Estimated Glomerular Filt Rate 52; Glucose Random 193 mg/dL (60-115); Magnesium 1.7 mg/dL (1.6-2.6); Potassium 3.4 mmol/L (3.3-5.1); Sodium 139 mmol/L (135-145); Total Protein 6.7 g/dL (6.5-8.0)
[2021-10-11 21:15] LABS: Lactic Acid 2.3 mmol/L (0.5-2.0)
[2021-10-11 21:39] LABS: Troponin-I High Sensitivity 4.7 ng/L (<3.5-35.0)
[2021-10-11 21:48] VITALS: BP 96/51; PULSE 107; RESP 19; TEMP 37.5; O2SAT 95
[2021-10-11] MEDS: 0.9 % Sodium Chloride 1,000 ML 999 ML IV (21:54)
[2021-10-11] MEDS: Doxycycline Hyclate 100 MG in 0.9 % Sodium Chloride 250 ML 166.67 MG IV (22:02)
[2021-10-11 22:06] VITALS: BP 105/58; PULSE 102; RESP 18; TEMP 37.4; O2SAT 95
[2021-10-11 22:16] LABS: SLIDE REVIEW VERIFIED
--- NOTE | 2021-10-11 22:43 | P.HPHOSP_ITS ---
History of Present Illness Date of Service: 10/11/21 Chief Complaint: fever This is a 55-year-old male with past medical history of chronic prostatitis, diabetes, diabetic foot ulcers, HIV on treatment, [facility] with findings of fever. Patient is Dominican-speaking only, IA went to speak to him with the help of an automotive parts interpreter but he does not want to talk to me, does not want to give history, he says that he is tired and he does not want to discuss his case therefore history is obtained mostly from ED physician. According to the ED physician, patient had a fever and longterm and was sent here for further evaluation. Of note patient was positive for COVID-19 in September On arrival to the ED patient had a fever of 102.5, heart rate of 103, blood pressure 100/47 Labs are significant for WBC count of 10.5, hemoglobin of 11.5, hematocrit of 33.9, lactic acid of 2.3, UA negative, COVID-19 negative Chest x-ray shows increased reticular markings within both lungs possible atypical infection/pneumonia Patient started on IV antibiotics will be admitted for further management Review of Systems Review of Systems: Yes all other systems are reviewed and are negative [facility] Medical History BPH w urinary obs/LUTS Chronic prostatitis Diabetic foot ulcers Erectile dysfunction due to arterial insufficiency Eschar of foot Hepatitis HIV (human immunodeficiency virus infection) Open wnd foot-complicated Osteomyelitis of left foot Sepsis Urinary hesitancy Family History Father No problems noted. Mother No problems noted. Surgical History No pertinent past surgical history Social History Household Members: Caregiver Housing: Other Housing Other:: [facility] Do you presently have visiting nurse or other home services: Yes Unable to assess alcohol history related to: Unknown Alcohol intake: former Patient Tobacco Use Status: Tobacco use Unknown Use of substances other than those prescribed or required for medical reasons: Unknown Advance Directives: No Advance Directives Information Provided: No Do you have thoughts of harming others: None Do you have a plan to hurt others: No Plan Recently lost weight without trying: Unsure How much weight loss: Unsure Nutrition Risks: No Nutritional Risk service: No Current occupational status: unemployed Meds Allergies Allergy/AdvReac Type Severity Reaction Status Date / Time acetaminophen [From TYLENOL] Allergy Unknown UNKNOWN Verified 09/02/21 08:36 aspirin [ASA] Allergy Unknown AGITATION Verified 09/02/21 08:36 trazodone [TRAZODONE] AdvReac Unknown HYPER Verified 09/02/21 08:36 Active Medications: Current Medications Sodium Chloride (Ns) 1,000 mls @ 999 mls/hr IV .Q1H1M ONE Stop: 10/11/21 22:51 Last Admin: 10/11/21 21:54 Dose: 999 mls/hr Doxycycline Hyclate 100 mg/ (Sodium Chloride) 250 mls @ 166.67 mls/hr IV ONCE ONE Stop: 10/11/21 23:22 Last Admin: 10/11/21 22:02 Dose: 166.67 mls/hr Home Medications Medication Instructions Recorded Confirmed Last Taken Type benztropine 2 mg tablet 2 mg PO BID 02/16/21 07/27/21 Unknown History docusate sodium 100 mg capsule 100 mg PO BID 02/16/21 07/27/21 Unknown History elviteg 150 mg-cob 150 mg-emtricit 1 tab PO DAILY 02/16/21 07/27/21 Unknown History 200 mg-tenofo alafenam 10 mg tablet (Genvoya) insulin aspar prot-insulin aspart 38 unit subcut BEDTIME 02/16/21 07/27/21 Unknown History 100 unit/mL (70-30) subcutaneous pen (Novolog Mix 70-30FlexPen U-100) lithium carbonate 300 mg tablet 900 mg PO DAILY 02/16/21 07/27/21 Unknown History pen needle, diabetic 32 gauge x #50 ea 02/16/21 03/05/21 Unknown History (BD Viv 2nd Gen Pen Needle) pravastatin 40 mg tablet 40 mg PO BEDTIME 02/16/21 07/27/21 Unknown History propranolol 20 mg tablet 20 mg PO DAILY 02/16/21 07/27/21 Unknown History risperidone 3 mg tablet 6 mg PO BEDTIME 02/16/21 07/27/21 Unknown History insulin aspar prot-insulin aspart 52 unit subcut DAILY 03/05/21 07/27/21 Unknown History 100 unit/mL (70-30) subcutaneous pen (Novolog Mix 70-30FlexPen U-100) omeprazole 20 mg capsule,delayed 1 cap PO DAILY 03/05/21 07/27/21 Unknown History release naproxen 500 mg tablet 1 tab PO BID PRN Pain 06/15/21 07/27/21 Unknown History doefigpi-hjk-unuur acid 0.4 1 tab PO DAILY 07/27/21 07/27/21 Unknown History mg-lycopene 300 mcg-lutein 250 mcg tablet (Cerovite Senior) pregabalin 100 mg capsule 1 cap PO BID 07/27/21 07/27/21 Unknown History valbenazine 80 mg capsule 80 mg PO DAILY 07/27/21 07/27/21 Unknown History (Everetteezza) bisacodyl 10 mg rectal suppository 10 mg [place] DAILY PRN constipation 09/02/21 Unknown History blood sugar diagnostic (FreeStyle #10 ea 09/02/21 Unknown History Lite Strips) polyethylene glycol 3350 17 17 g PO DAILY 09/02/21 Unknown History gram/dose oral powder (Gavilax) sennosides 8.6 mg tablet (senna) 17.2 mg PO DAILY 09/02/21 Unknown History Physical Exam Vital Signs and Narrative: Vital Signs: Last Vital Signs Temp 99.3 F 10/11/21 22:06 Pulse 102 H 10/11/21 22:06 Resp 18 10/11/21 22:06 BP 105/58 L 10/11/21 22:06 Pulse Ox 95 10/11/21 22:06 O2 Del Method 10/11/21 22:06 BMI result Body Mass Index 22.3 Const: Other: Did not allow me to examine him General: cooperative and no acute distress Orientation/consciousness: patient oriented x3 Eyes: General: appearance normal, both eyes and all related structures Resp: Other: Crackles bilateral Effort & Inspection: normal respiratory effort Cardio: Rate: regular rate Rhythm: regular rhythm GI: Other: Did not allow me to examine Skin: General skin exam: no rashes or lesions noted Neuro: General: patient oriented x3 Cognition (Neuro): normal cognition Extrem: General: Yes normal to inspection and Yes no pedal edema Results Labs CBC and Chem 7: 10/11/21 20:41 10/11/21 20:41 Labs: Laboratory Results - last 24 hr 10/11/21 10/11/21 10/11/21 20:41 20:41 20:41 MCV 91.4 MCH 31.0 MCHC 33.9 RDW 13.0 Plt Count 144 L MPV 11.1 Immature Gran % (Auto) 0.5 H Neut % (Auto) 95.9 H Lymph % (Auto) 1.3 L [place] % (Auto) 1.6 L Eos % (Auto) 0.4 Baso % (Auto) 0.3 Lymph # (Auto) 0.1 L [place] # (Auto) 0.2 Eos # (Auto) 0.0 Baso # (Auto) 0.0 Abs Immat Gran (auto) 0.05 H Absolute Neuts (auto) 10.0 H Absolute Nucleated RBC 0.000 Nucleated RBC % (auto) 0.0 Smear Tech's Comments VERIFIED Anion Gap 13 Estim Creat Clear Calc 55.5 Estimated GFR 52 Random Glucose 193 H D Lactic Acid 2.3 H* Calcium 9.2 Magnesium 1.7 Total Bilirubin 0.3 Direct Bilirubin < 0.2 AST 50 H D ALT 39 Alkaline Phosphatase 104 D Total Protein 6.7 Albumin 4.0 COVID-19 (B[facility]ANY) COVID-19 Clin Com 10/11/21 20:42 MCV MCH MCHC RDW Plt Count MPV Immature Gran % (Auto) Neut % (Auto) Lymph % (Auto) [place] % (Auto) Eos % (Auto) Baso % (Auto) Lymph # (Auto) [place] # (Auto) Eos # (Auto) Baso # (Auto) Abs Immat Gran (auto) Absolute Neuts (auto) Absolute Nucleated RBC Nucleated RBC % (auto) Smear Tech's Comments Anion Gap Estim Creat Clear Calc Estimated GFR Random Glucose Lactic Acid Calcium Magnesium Total Bilirubin Direct Bilirubin AST ALT Alkaline Phosphatase Total Protein Albumin COVID-19 (BETHANY) Negative COVID-19 Clin Com See Note Imaging Radiologist's Impressions: Impressions Chest X-Ray 10/11/21 21:35 IMPRESSION: 1. Slightly increased reticular markings within both lungs, nonspecific, possibly atypical infection/pneumonia. 2. No jo airspace consolidation or effusions. Assessment and Plan (1) Pneumonia: Status: Acute (2) Sepsis: Status: Acute Plan 55-year-old male with past medical history of diabetes, HIV presents to the [facility] with fever found to have likely pneumonia # sepsis - patient's meets criteria for sepsis with likely source being pneumonia -has fever, tachycardia, no leukocytosis, has positive lactic acid -patient started on IV antibiotics - follow cultures - IV fluids # pneumonia - likely bacterial in the setting of recent COVID-19 infection in September - will treat with IV antibiotics to cover for community-acquired - follow cultures - monitor respiratory status # diabetes - continue home insulin - low-dose sliding scale insulin - diabetic diet # HIV - last CD count was stable, and last HIV count undetectable - will continue his home treatment # BPH - continue tamsulosin DVT prophylaxis: Lovenox The patient's sepsis and need for IV antibiotics he will require minimum 2 night hospital stay for further management and monitoring Quality Stroke Does the patient have a stroke diagnosis?: No VTE Prior VTE?: No VTE Risk Level:: Medical - moderate - high VTE Device Contraindication: Treatment Not Indicated VTE Drug Contraindication: N/A - Med Ordered
[2021-10-11 22:52] LABS: Reflex Lactate? Lactic Acid Added
[2021-10-11 23:18] VITALS: BP 116/62; PULSE 93; RESP 18; TEMP 37.7; O2SAT 96
[2021-10-11 23:20] LABS: Appearance Urine Clear; Color Urine Yellow; Glucose Urine UA Negative (Negative); Leukocyte Esterase Urine Negative (Negative); Nitrite Urine Negative (Negative); PH 6.5 (5.0-9.0); Urine Blood Negative (Negative); Urine Ketones Negative (Negative); Urine Protein Negative (Neg-Trace)
[2021-10-11 23:33] LABS: ~Lactic Acid-LAB USE ONLY 0.7 mmol/L (0.5-2.0)
[2021-10-12] VITALS (7 sets, daily range): BP systolic 101–128; BP diastolic 60–84; PULSE 69–94; RESP 12–20; TEMP 36–37.4; O2SAT 94–100; BMI 22.0
[2021-10-12] MEDS: 0.9 % Sodium Chloride Flush 3 ML SYRINGE IVFLUSH ×3 (00:01→15:25)
--- NOTE | 2021-10-12 02:08 | PC.NURSE ---
Nurse to nurse report given to BI Mcnally at [facility]. Patient to be transported to [facility] room 347-1.
--- NOTE | 2021-10-12 03:21 | PC.NURSE ---
Pt came from the ED via stretcher at 0249 to rm [id number], slid to bed by staff, pt was awake and denies any pain when asked, pt said he doesn't understand and speak Kazakh when asked, special events planner was paged and when he arrived the pt had his eyes close and refused to talk,bed alarm on, callbell in reach, [employer] monitor placed as for safety.
[2021-10-12 06:10] LABS: MANUAL DIFF FLAG NO
[2021-10-12 06:31] LABS: Basophils Absolute Auto 0.1 X10*3/uL (0.0-0.2); Basophils Percent Auto 0.4 % (0-2); Eosinophils Percent Auto 0.2 % (0-4); Hematocrit 33.2 % (42.0-52.0); Hemoglobin 11.1 g/dl (14.0-18.0); Imm Gran Abs Auto 0.14 X10*3/uL (0.00-0.03); Imm Gran Pct Auto 0.8 % (0.0-0.4); Lymphocytes Absolute Auto 0.5 X10*3/uL (1.2-4.9); Lymphocytes Percent Auto 2.8 % (20-40); Mean Corpuscular HGB Conc 33.4 g/dl (31.0-36.0); Mean Corpuscular Hemoglobin 31.1 pg (27.0-33.0); Mean Platelet Volume 11.7 fL (9.4-12.4); Monocytes Absolute Auto 1.2 X10*3/uL (0.1-1.2); Monocytes Percent Auto 6.4 % (2-11); Neutrophils Absolute Auto 16.3 x10*3/uL (2.0-8.3); Neutrophils Percent Auto 89.4 % (45-73); Platelet Count 143 X10*3/uL (160-400); Red Blood Count 3.57 X10*6/uL (4.60-5.80); Red Cell Distribution Width 13.2 % (11.0-16.0); White Blood Count 18.3 X10*3/uL (4.8-10.8)
[2021-10-12 06:43] LABS: Anion Gap 13 (12-20); Blood Urea Nitrogen 18 mg/dL (9-16); Calcium 8.7 mg/dL (8.4-10.2); Carbon Dioxide 20 mmol/L (22-29); Chloride 114 mmol/L (96-108); Creatinine Clr Calc Pharmacy 67.2; Estimated Glomerular Filt Rate > 60; Glucose Random 164 mg/dL (60-115); Potassium 3.7 mmol/L (3.3-5.1); Sodium 143 mmol/L (135-145)
[2021-10-12 07:01] LABS: Glucose, Whole Blood 182 mg/dL (60-115)
[2021-10-12] MEDS: Insulin Lispro 100 UNIT/ML 3 ML VIAL SUBCUT ×2 (07:37→16:54)
--- NOTE | 2021-10-12 09:14 | MHC.CLN ---
NUTRITION INCREASE OF DIETARY CALORIES. INCREASED DIET TO DIABETIC 2000 KCALS. HIGHER KCALS NEEDS DUE TO INFECTION.
--- NOTE | 2021-10-12 09:18 | MHC.CM.PN ---
PATIENT PROVIDED CM CONSENT TO SPEAK WITH HALFWAY JOHNNY TORIBIO [phone] [facility] PATIENT LIVES IN A [facility] [place] IN [place] USES [facility] IN [facility] NURSE VISIT FOR WOUND CARE HCP/COPY REQUESTED, HIS SISTER SHASHI BO IS NAMED FUNMILAYO RAMOS X3 PFIZER PCP: RADHA HARRIS [facility]FWAY WILL TRANSPORT D/C PLAN: RETURN TO [facility]
--- NOTE | 2021-10-12 09:59 | PHA.MEDREC ---
Pharmacy Consult ? Medication Reconciliation Pharmacy has completed the medication reconciliation. Pt poor historian, when I asked about how many units of insulin he takes he was very vague and unclear and noted a range from 15 to 50 units. I also asked about Ingrezza and he stated that he takes a lot of meds for his movement but there is no claim history.
[2021-10-12] MEDS: Finasteride 5 MG TABLET PO (10:23)
[2021-10-12] MEDS: Propranolol HCL 20 MG TABLET PO (10:24)
[2021-10-12] MEDS: Multivitamin TABLET 1 TAB PO (10:24)
[2021-10-12] MEDS: Omeprazole 20 MG CAPSULE.DR PO (10:24)
[2021-10-12] MEDS: Lithium Carbonate 300 MG CAPSULE 900 MG PO (10:24)
[2021-10-12] MEDS: Docusate Sodium 100 MG CAPSULE PO ×2 (10:24→20:59)
[2021-10-12] MEDS: Pregabalin 100 MG CAPSULE PO ×2 (10:24→20:59)
--- NOTE | 2021-10-12 10:25 | HO.PM.IMPN ---
Subjective Subjective Date of Service: 10/13/21 Interval History: history obtained via bilingual interpreter patient sitting comfortably on recliner admits that he was having fever and shakiness at long-term, he denies associated shortness of breath no cough, denies urinary symptoms of urgency, no frequency, denies headache, dizziness, no sinus pressure, denies nausea, no vomiting, no abdominal pain. Review of Systems Review of Systems: Yes all other systems are reviewed and are negative Physical Exam Vital Signs: Vital Signs: Last Vital Signs Temp 96.8 F 10/12/21 06:49 Pulse 71 10/12/21 06:49 Resp 20 10/12/21 06:49 BP 118/65 10/12/21 06:49 Pulse Ox 98 10/12/21 06:49 O2 Del Method 10/12/21 06:49 BMI result Body Mass Index 22.0 Const: Other: General resting comfortably, no acute distress. anicteric sclerae Neck no JVD. CVS regular rate rhythm, Respiratory lungs clear to auscultation, no respiratory distress, no wheeze, no rhonchi. Gastrointestinal abdomen soft, nontender, bowel sounds audible, no guarding , no rigidity. Extremities no edema. Both feet plantar surface with thick calluses/ ulceration Neuro nonfocal / bilateral hand tremor Skin no rash Objective Data Active Medications Benztropine Mesylate (Benztropine Mesylate 1 Mg Tablet) 2 mg PO BID [facility] Dextrose (Dextrose 50 % 25 Gm/50 Ml Syringe) 25 gm IVPUSH Q15M PRN; Protocol PRN Reason: per Hypoglycemia Standing Ord. Docusate Sodium (Docusate Sodium 100 Mg Capsule) 100 mg PO DAILY PRN PRN Reason: Constipation Docusate Sodium (Docusate Sodium 100 Mg Capsule) 100 mg PO BID [facility] Enoxaparin Sodium (Enoxaparin Sodium 40 Mg/0.4 Ml Syringe) 40 mg SUBCUT Q24H [facility] Last Admin: 10/12/21 00:00 Dose: 40 mg Documented By: ETHAN Finasteride (Finasteride 5 Mg Tablet) 5 mg PO DAILY [facility] Glucose (Glucose Gel 15 Gm Gel..Gram.) 15 gm PO Q15M PRN; Protocol PRN Reason: per Hypoglycemia Standing Ord. Ceftriaxone Sodium 1 gm/ (Sodium Chloride) 50 mls @ 100 mls/hr IV Q24H [facility] Azithromycin 500 mg/ Sodium (Chloride) 250 mls @ 125 mls/hr IV Q24H [facility] Last Infusion: 10/12/21 03:19 Dose: 0 mls/hr Documented By: BEE Insulin Human Lispro (Insulin Lispro 100 Unit/Ml 3 Ml Vial) 0 unit SUBCUT QIDACHS [facility]; Protocol Last Admin: 10/12/21 07:37 Dose: 2 unit Documented By: EVENS [place] Carbonate ([place] Carbonate 300 Mg Capsule) 900 mg PO DAILY [facility] Multivitamins/Vitamin C (Multivitamin Tablet) 1 tab PO DAILY [facility] Non-Formulary Medication (Vgtduyt-Ezj-Nlktr-Tenof Alafen [Genvoya]) 1 tab PO DAILY [facility] Omeprazole (Omeprazole 20 Mg Capsule.Dr) 20 mg PO DAILY@30 [facility] Ondansetron HCl (Ondansetron Hcl 4 Mg/2 Ml Vial) 4 mg IVPUSH Q8H PRN PRN Reason: Nausea and Vomiting Polyethylene Glycol (Polyethylene Glycol 3350 17 Gm Powd.Pack) 17 gm PO DAILY [facility] Pravastatin Sodium (Pravastatin Sodium 40 Mg Tablet) 40 mg PO BEDTIME [facility] Pregabalin (Pregabalin 100 Mg Capsule) 100 mg PO BID [facility] Propranolol HCl (Propranolol Hcl 20 Mg Tablet) 20 mg PO DAILY [facility]; Protocol Sodium Chloride (0.9 % Sodium Chloride Flush 3 Ml Syringe) 3 ml IVFLUSH QSHIFT [facility] Last Admin: 10/12/21 07:42 Dose: 3 ml Documented By: EVENS Tamsulosin HCl (Tamsulosin Hcl 0.4 Mg Capsule) 0.4 mg PO BEDTIME [facility] Labs CBC & Chem 7: 10/13/21 05:17 10/13/21 05:17 Labs: Laboratory Results - last 24 hr 10/11/21 10/11/21 10/11/21 20:41 20:41 20:41 MCV 91.4 MCH 31.0 MCHC 33.9 RDW 13.0 Plt Count 144 L MPV 11.1 Immature Gran % (Auto) 0.5 H Neut % (Auto) 95.9 H Lymph % (Auto) 1.3 L Rowan % (Auto) 1.6 L Eos % (Auto) 0.4 Baso % (Auto) 0.3 Lymph # (Auto) 0.1 L Rowan # (Auto) 0.2 Eos # (Auto) 0.0 Baso # (Auto) 0.0 Abs Immat Gran (auto) 0.05 H Absolute Neuts (auto) 10.0 H Absolute Nucleated RBC 0.000 Nucleated RBC % (auto) 0.0 Smear Tech's Comments VERIFIED Anion Gap 13 Estim Creat Clear Calc 55.5 Estimated GFR 52 POC Glucose Random Glucose 193 H D Lactic Acid 2.3 H* Lactic Acid F/U @ 2Hr Calcium 9.2 Magnesium 1.7 Total Bilirubin 0.3 Direct Bilirubin < 0.2 AST 50 H D ALT 39 Alkaline Phosphatase 104 D Total Protein 6.7 Albumin 4.0 Urine Color Urine Appearance Urine pH Ur Specific [place] Urine Protein Urine Glucose (UA) Urine Ketones Urine Blood Urine Nitrite Ur Leukocyte Esterase COVID-19 ([facility]) COVID-19 Clin Com 10/11/21 10/11/21 10/11/21 20:42 23:09 23:09 MCV MCH MCHC RDW Plt Count MPV Immature Gran % (Auto) Neut % (Auto) Lymph % (Auto) Rowan % (Auto) Eos % (Auto) Baso % (Auto) Lymph # (Auto) Rowan # (Auto) Eos # (Auto) Baso # (Auto) Abs Immat Gran (auto) Absolute Neuts (auto) Absolute Nucleated RBC Nucleated RBC % (auto) Smear Tech's Comments Anion Gap Estim Creat Clear Calc Estimated GFR POC Glucose Random Glucose Lactic Acid Lactic Acid F/U @ 2Hr 0.7 Calcium Magnesium Total Bilirubin Direct Bilirubin AST ALT Alkaline Phosphatase Total Protein Albumin Urine Color Yellow Urine Appearance Clear Urine pH 6.5 Ur Specific Ophiem 1.010 Urine Protein Negative Urine Glucose (UA) Negative Urine Ketones Negative Urine Blood Negative Urine Nitrite Negative Ur Leukocyte Esterase Negative COVID-19 ([facility]) Negative COVID-19 [employer] Com See Note 10/12/21 10/12/21 10/12/21 05:15 05:15 06:48 MCV 93.0 MCH 31.1 MCHC 33.4 RDW 13.2 Plt Count 143 L MPV 11.7 Immature Gran % (Auto) 0.8 H Neut % (Auto) 89.4 H Lymph % (Auto) 2.8 L Rowan % (Auto) 6.4 Eos % (Auto) 0.2 Baso % (Auto) 0.4 Lymph # (Auto) 0.5 L Rowan # (Auto) 1.2 Eos # (Auto) 0.0 Baso # (Auto) 0.1 Abs Immat Gran (auto) 0.14 H Absolute Neuts (auto) 16.3 H Absolute Nucleated RBC 0.000 Nucleated RBC % (auto) 0.0 Smear Tech's Comments Anion Gap 13 Estim Creat Clear Calc 67.2 Estimated GFR > 60 POC Glucose 182 H Random Glucose 164 H Lactic Acid Lactic Acid F/U @ 2Hr Calcium 8.7 Magnesium Total Bilirubin Direct Bilirubin AST ALT Alkaline Phosphatase Total Protein Albumin Urine Color Urine Appearance Urine pH Ur Specific [place] Urine Protein Urine Glucose (UA) Urine Ketones Urine Blood Urine Nitrite Ur Leukocyte Esterase COVID-19 ([facility]) COVID-19 Clin Com Assessment and Plan (1) Pneumonia: Status: Acute Plan 55-year-old male with past medical history of diabetes, HIV presents to the hospital with fever found to have likely pneumonia # sepsis due to pneumonia patient's meets sepsis criteria due to fever, tachycardia, lactic acidosis 2.3, WBC normal on arrival, now noted to have elevated WBC 18.3 this a.m. on IV azithromycin/ceftriaxone day 2, blood cultures x2 growing Gram-positive cocci in pairs and short chains, follow CBC and final blood culture report, will add IV Zosyn history of recent COVID-19 infection in September. Supportive care with as needed oxygen/ cough medication. 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 # essential tremors continue propranolol DVT prophylaxis:? Lovenox patient's need continued inpatient hospitalization due to sepsis, on IV antibiotic Quality Stroke Does the patient have a stroke diagnosis?: No VTE Prior VTE?: No VTE Risk Level:: Medical - moderate - high VTE Device Contraindication: Treatment Not Indicated VTE Drug Contraindication: N/A - Med Ordered
[2021-10-12 11:09] LABS: Glucose, Whole Blood 132 mg/dL (60-115)
[2021-10-12] MEDS: Piperacillin Sodium/Tazobactam 3.375 GM in 0.9 % Sodium Chloride 50 ML IV ×2 (15:25→20:57)
[2021-10-12 16:35] LABS: Glucose, Whole Blood 164 mg/dL (60-115)
[2021-10-12 20:12] LABS: Glucose, Whole Blood 115 mg/dL (60-115)
[2021-10-12] MEDS: Tamsulosin HCL 0.4 MG CAPSULE PO (20:59)
[2021-10-12] MEDS: Benztropine Mesylate 1 MG TABLET 2 MG PO (20:59)
[2021-10-12] MEDS: Pravastatin Sodium 40 MG TABLET PO (20:59)
[2021-10-12] MEDS: Azithromycin 500 MG in 0.9 % Sodium Chloride 250 ML 125 MG IV ×2 (22:05)
[2021-10-12] MEDS: Enoxaparin Sodium 40 MG/0.4 ML SYRINGE SUBCUT ×2 (22:10)
[2021-10-13] VITALS: BP 113/68; PULSE 71; RESP 18; TEMP 36.6; O2SAT 97
[2021-10-13] MEDS: 0.9 % Sodium Chloride Flush 3 ML SYRINGE IVFLUSH ×2 (00:11→15:42)
[2021-10-13] MEDS: Piperacillin Sodium/Tazobactam 3.375 GM in 0.9 % Sodium Chloride 50 ML IV ×4 (03:00→21:12)
[2021-10-13 06:35] LABS: Hematocrit 33.9 % (42.0-52.0); Hemoglobin 11.4 g/dl (14.0-18.0); Mean Corpuscular HGB Conc 33.6 g/dl (31.0-36.0); Mean Corpuscular Hemoglobin 31.2 pg (27.0-33.0); Mean Corpuscular Volume 92.9 fL (80.0-98.0); Mean Platelet Volume 11.9 fL (9.4-12.4); Platelet Count 112 X10*3/uL (160-400); Red Blood Count 3.65 X10*6/uL (4.60-5.80); Red Cell Distribution Width 13.3 % (11.0-16.0); White Blood Count 13.3 X10*3/uL (4.8-10.8)
[2021-10-13 06:53] VITALS: BP 115/69; PULSE 75; RESP 18; TEMP 36.6; O2SAT 96
[2021-10-13 07:00] LABS: Anion Gap 13 (12-20); Blood Urea Nitrogen 13 mg/dL (9-16); Calcium 8.9 mg/dL (8.4-10.2); Carbon Dioxide 23 mmol/L (22-29); Chloride 111 mmol/L (96-108); Creatinine Clr Calc Pharmacy 70.9; Estimated Glomerular Filt Rate > 60; Glucose Random 148 mg/dL (60-115); Potassium 3.5 mmol/L (3.3-5.1); Sodium 143 mmol/L (135-145)
[2021-10-13 07:15] LABS: Glucose, Whole Blood 174 mg/dL (60-115)
[2021-10-13] MEDS: Insulin Lispro 100 UNIT/ML 3 ML VIAL SUBCUT ×2 (08:38→12:09)
[2021-10-13] MEDS: Lithium Carbonate 300 MG CAPSULE 900 MG PO (08:38)
[2021-10-13] MEDS: Multivitamin TABLET 1 TAB PO (08:39)
[2021-10-13] MEDS: Benztropine Mesylate 1 MG TABLET 2 MG PO ×2 (08:39→19:48)
[2021-10-13] MEDS: Propranolol HCL 20 MG TABLET PO (08:39)
[2021-10-13] MEDS: Finasteride 5 MG TABLET PO (08:39)
[2021-10-13] MEDS: Pregabalin 100 MG CAPSULE PO ×2 (08:39→19:48)
[2021-10-13] MEDS: Docusate Sodium 100 MG CAPSULE PO ×2 (08:39→19:49)
[2021-10-13 09:12] LABS: Glucose, Whole Blood 258 mg/dL (60-115)
[2021-10-13 11:12] VITALS: BP 107/69; PULSE 64; RESP 16; TEMP 36.6; O2SAT 99
[2021-10-13 11:31] LABS: Glucose, Whole Blood 208 mg/dL (60-115)
--- NOTE | 2021-10-13 13:41 | P.PNIM_ITS ---
Subjective Subjective Date of Service: 10/13/21 Interval History: history obtained via windows mobile developer, patient offers no acute complaints, denies shortness breath, no fevers no chills, no shakiness, has chronic bilateral foot wounds unchanged area, no events overnight. Review of Systems Review of Systems: Yes all other systems are reviewed and are negative Physical Exam Vital Signs: Vital Signs: Last Vital Signs Temp 98 F 10/13/21 11:12 Pulse 64 10/13/21 11:12 Resp 16 10/13/21 11:12 BP 107/69 10/13/21 11:12 Pulse Ox 99 10/13/21 11:12 O2 Del Method 10/13/21 11:12 BMI result Body Mass Index 22.0 Const: Other: General resting co mfortably, no acut e distress.? anict liat sclerae Neck no JVD. CVS? regul ar rate rhythm, Re spiratory lungs cl ear to auscultatio n, no respiratory distress, no wheez e, no rhonchi. Gas trointestinal abdo men soft, nontende r, bowel sounds au dible, no guarding , no rigidity. Ex tremities no edema .? Both feet? plan tar surface with t hick calluses/ ulc eration Neuro nonf ocal Skin no rash Objective Data Active Medications Benztropine Mesylate (Benztropine Mesylate 1 Mg Tablet) 2 mg PO BID [facility] Last Admin: 10/13/21 08:39 Dose: 2 mg Documented By: JAZ Dextrose (Dextrose 50 % 25 Gm/50 Ml Syringe) 25 gm IVPUSH Q15M PRN; Protocol PRN Reason: per Hypoglycemia Standing Ord. Docusate Sodium (Docusate Sodium 100 Mg Capsule) 100 mg PO DAILY PRN PRN Reason: Constipation Docusate Sodium (Docusate Sodium 100 Mg Capsule) 100 mg PO BID [facility] Last Admin: 10/13/21 08:39 Dose: 100 mg Documented By: JAZ Enoxaparin Sodium (Enoxaparin Sodium 40 Mg/0.4 Ml Syringe) 40 mg SUBCUT Q24H [facility] Last Admin: 10/12/21 22:10 Dose: 40 mg Documented By: MARISELA Finasteride (Finasteride 5 Mg Tablet) 5 mg PO DAILY [facility] Last Admin: 10/13/21 08:39 Dose: 5 mg Documented By: JAZ Glucose (Glucose Gel 15 Gm Gel..Gram.) 15 gm PO Q15M PRN; Protocol PRN Reason: per Hypoglycemia Standing Ord. Azithromycin 500 mg/ Sodium (Chloride) 250 mls @ 125 mls/hr IV Q24H [facility] Last Infusion: 10/13/21 00:12 Dose: 0 mls/hr Documented By: TRINO Piperacillin Sod/Tazobactam (Sod 3.375 gm/ Sodium Chloride) 50 mls @ 100 mls/hr IV Q6H [facility] Last Infusion: 10/13/21 09:33 Dose: 0 mls/hr Documented By: JAZ Insulin Human Lispro (Insulin Lispro 100 Unit/Ml 3 Ml Vial) 0 unit SUBCUT QIDACHS [facility]; Protocol Last Admin: 10/13/21 12:09 Dose: 4 unit Documented By: JAZ [place] Carbonate ([place] Carbonate 300 Mg Capsule) 900 mg PO DAILY [facility] Last Admin: 10/13/21 08:38 Dose: 900 mg Documented By: JAZ Multivitamins/Vitamin C (Multivitamin Tablet) 1 tab PO DAILY [facility] Last Admin: 10/13/21 08:39 Dose: 1 tab Documented By: JAZ Pt Own ([Genvoya] [phone] Mg Tablet) 1 tab PO DAILY [facility] Last Admin: 10/13/21 10:49 Dose: 1 tab Documented By: JAZ Omeprazole (Omeprazole 20 Mg Capsule.Dr) 20 mg PO DAILY@0630 [facility] Last Admin: 10/13/21 05:46 Dose: Not Given Documented By: TRINO Non-Admin Reason: REFUSED, WOULD OPEN EYES OR TALK Ondansetron HCl (Ondansetron Hcl 4 Mg/2 Ml Vial) 4 mg IVPUSH Q8H PRN PRN Reason: Nausea and Vomiting Polyethylene Glycol (Polyethylene Glycol 3350 17 Gm Powd.Pack) 17 gm PO DAILY [facility] Last Admin: 10/13/21 08:52 Dose: Not Given Documented By: JAZ Non-Admin Reason: Patient Refused Pravastatin Sodium (Pravastatin Sodium 40 Mg Tablet) 40 mg PO BEDTIME [facility] Last Admin: 10/12/21 20:59 Dose: 40 mg Documented By: MARISELA Pregabalin (Pregabalin 100 Mg Capsule) 100 mg PO BID [facility] Last Admin: 10/13/21 08:39 Dose: 100 mg Documented By: JAZ Propranolol HCl (Propranolol Hcl 20 Mg Tablet) 20 mg PO DAILY [facility]; Protocol Last Admin: 10/13/21 08:39 Dose: 20 mg Documented By: JAZ Sodium Chloride (0.9 % Sodium Chloride Flush 3 Ml Syringe) 3 ml IVFLUSH QSHIFT [facility] Last Admin: 10/13/21 08:51 Dose: Not Given Documented By: JAZ Non-Admin Reason: Previously Administered Tamsulosin HCl (Tamsulosin Hcl 0.4 Mg Capsule) 0.4 mg PO BEDTIME [facility] Last Admin: 10/12/21 20:59 Dose: 0.4 mg Documented By: MARISELA Labs CBC & Chem 7: 10/13/21 05:17 10/13/21 05:17 Labs: Laboratory Results - last 24 hr 10/12/21 10/12/21 10/13/21 16:13 19:54 05:17 MCV 92.9 MCH 31.2 MCHC 33.6 RDW 13.3 Plt Count 112 L MPV 11.9 Absolute Nucleated RBC 0.000 Nucleated RBC % (auto) 0.0 Anion Gap Estim Creat Clear Calc Estimated GFR POC Glucose 164 H 115 Random Glucose Calcium 10/13/21 10/13/21 10/13/21 05:17 06:53 09:09 MCV MCH MCHC RDW Plt Count MPV Absolute Nucleated RBC Nucleated RBC % (auto) Anion Gap 13 Estim Creat Clear Calc 70.9 Estimated GFR > 60 POC Glucose 174 H 258 H Random Glucose 148 H Calcium 8.9 10/13/21 11:12 MCV MCH MCHC RDW Plt Count MPV Absolute Nucleated RBC Nucleated RBC % (auto) Anion Gap Estim Creat Clear Calc Estimated GFR POC Glucose 208 H Random Glucose Calcium Microbiology Microbiology Results: Microbiology 10/11/21 20:48 Blood Culture - Preliminary Blood - Venous Gram positive cocci 10/11/21 20:48 Blood Culture - Preliminary Blood - Venous Gram positive cocci Assessment and Plan (1) Pneumonia: Status: Acute Plan 55-year-old male with past medical history of diabetes, HIV presents to the hospital with fever found to have likely pneumonia # sepsis due to pneumonia/ skin wounds patient's meets sepsis criteria due to fever, tachycardia, lactic acidosis 2.3, WBC normal on arrival, later bumped to 18.3 this a.m. WBC 13.3 blood cultures x2 growing Gram-positive cocci in pairs and short chains, follow CBC and final blood culture report, on IV Zosyn day 2 and azithromycin for atypical coverage history of recent COVID-19 infection in September. Supportive care with as needed oxygen/ cough medication. 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 # essential tremors continue propranolol DVT prophylaxis:? Lovenox patient's need continued inpatient hospitalization due to bacteremia, on IV antibiotic . Quality Stroke Does the patient have a stroke diagnosis?: No VTE Prior VTE?: No VTE Risk Level:: Medical - moderate - high VTE Device Contraindication: Treatment Not Indicated VTE Drug Contraindication: N/A - Med Ordered
--- NOTE | 2021-10-13 15:10 | P.CONGS_ITS ---
History of Present Illness Consult details Consult date: 10/13/21 Narrative: 55-year-old male with multiple medical problems including HIV positivity, diabetes, hypertension and tremors, was referred to me because of diabetic foot ulcers He actually had been seen by the surgical service a few times since June of 2021. He has calluses on the plantar aspect of the right foot. He is actually being [facility]. He denies any pain on this areas at this time. He also has history of chronic osteomyelitis. He denies any drainage from the foot. Review of Systems Constitutional: Constitutional: Denies chills and Denies fever(s) Cardiovascular: Cardiovascular: Denies chest pain, Denies dyspnea and Denies dyspnea on exertion Respiratory: Respiratory: Denies cough, Denies dyspnea and Denies dyspnea on exertion Gastrointestinal: Gastrointestinal: Denies hematochezia and Denies change in bowel habits Genitourinary: Genitourinary: Denies hematuria and Denies difficulty urinating Musculoskeletal: Musculoskeletal: Denies back pain and Denies limited range of motion Neurologic: Denies focal weakness, Denies convulsions and Reports tremor(s) Psychiatric: Psychiatric: Denies depression and Denies mood swings [facility], [facility] Past Medical History Medical History (Updated 10/13/21 @ 15:14 by Nigel Osman MD) BPH w urinary obs/LUTS Callus of foot Chronic prostatitis Diabetic foot ulcers Erectile dysfunction due to arterial insufficiency Eschar of foot Hepatitis HIV (human immunodeficiency virus infection) Open wnd foot-complicated Osteomyelitis of left foot Sepsis Urinary hesitancy Family History Family History Father No problems noted. Mother No problems noted. Surgical History Surgical History No pertinent past surgical history Social History Social History Household Members: Caregiver Housing: Other Housing Other:: detention Do you presently have visiting nurse or other home services: Yes Unable to assess alcohol history related to: Unknown Alcohol intake: former Patient Tobacco Use Status: Tobacco use Unknown Use of substances other than those prescribed or required for medical reasons: Unknown Currently Displaying Signs/Symptoms of Drug Intoxication Withdrawal: No Advance Directives: No Advance Directives Information Provided: No Do you have thoughts of harming others: None Do you have a plan to hurt others: No Plan Recently lost weight without trying: Unsure How much weight loss: Unsure Nutrition Risks: No Nutritional Risk service: No Current occupational status: unemployed Meds Allergies Allergy/AdvReac Type Severity Reaction Status Date / Time acetaminophen [From TYLENOL] Allergy Unknown UNKNOWN Verified 09/02/21 08:36 aspirin [ASA] Allergy Unknown AGITATION Verified 09/02/21 08:36 trazodone [TRAZODONE] AdvReac Unknown HYPER Verified 09/02/21 08:36 Active Medications: Current Medications Benztropine Mesylate (Benztropine Mesylate 1 Mg Tablet) 2 mg PO BID [facility] Last Admin: 10/13/21 08:39 Dose: 2 mg Dextrose (Dextrose 50 % 25 Gm/50 Ml Syringe) 25 gm IVPUSH Q15M PRN; Protocol PRN Reason: per Hypoglycemia Standing Ord. Docusate Sodium (Docusate Sodium 100 Mg Capsule) 100 mg PO DAILY PRN PRN Reason: Constipation Docusate Sodium (Docusate Sodium 100 Mg Capsule) 100 mg PO BID [facility] Last Admin: 10/13/21 08:39 Dose: 100 mg Enoxaparin Sodium (Enoxaparin Sodium 40 Mg/0.4 Ml Syringe) 40 mg SUBCUT Q24H [facility] Last Admin: 10/12/21 22:10 Dose: 40 mg Finasteride (Finasteride 5 Mg Tablet) 5 mg PO DAILY [facility] Last Admin: 10/13/21 08:39 Dose: 5 mg Glucose (Glucose Gel 15 Gm Gel..Gram.) 15 gm PO Q15M PRN; Protocol PRN Reason: per Hypoglycemia Standing Ord. Azithromycin 500 mg/ Sodium (Chloride) 250 mls @ 125 mls/hr IV Q24H [facility] Last Infusion: 10/13/21 00:12 Dose: Infused Piperacillin Sod/Tazobactam (Sod 3.375 gm/ Sodium Chloride) 50 mls @ 100 mls/hr IV Q6H [facility] Last Admin: 10/13/21 15:04 Dose: 100 mls/hr Insulin Glargine (Insulin Glargine,Hum.Rec.Anlog 100 Unit/Ml 10 Ml Vial) 12 unit SUBCUT DAILY [facility] Insulin Human Lispro (Insulin Lispro 100 Unit/Ml 3 Ml Vial) 0 unit SUBCUT QIDACHS [facility]; Protocol Last Admin: 10/13/21 12:09 Dose: 4 unit [place] Carbonate ([place] Carbonate 300 Mg Capsule) 900 mg PO DAILY [facility] Last Admin: 10/13/21 08:38 Dose: 900 mg Multivitamins/Vitamin C (Multivitamin Tablet) 1 tab PO DAILY [facility] Last Admin: 10/13/21 08:39 Dose: 1 tab Pt Own ([Genvoya] [phone] Mg Tablet) 1 tab PO DAILY [facility] Last Admin: 10/13/21 10:49 Dose: 1 tab Omeprazole (Omeprazole 20 Mg Capsule.Dr) 20 mg PO DAILY@0630 [facility] Last Admin: 10/13/21 05:46 Dose: Not Given Ondansetron HCl (Ondansetron Hcl 4 Mg/2 Ml Vial) 4 mg IVPUSH Q8H PRN PRN Reason: Nausea and Vomiting Polyethylene Glycol (Polyethylene Glycol 3350 17 Gm Powd.Pack) 17 gm PO DAILY [facility] Last Admin: 10/13/21 08:52 Dose: Not Given Pravastatin Sodium (Pravastatin Sodium 40 Mg Tablet) 40 mg PO BEDTIME [facility] Last Admin: 10/12/21 20:59 Dose: 40 mg Pregabalin (Pregabalin 100 Mg Capsule) 100 mg PO BID [facility] Last Admin: 10/13/21 08:39 Dose: 100 mg Propranolol HCl (Propranolol Hcl 20 Mg Tablet) 20 mg PO DAILY [facility]; Protocol Last Admin: 10/13/21 08:39 Dose: 20 mg Sodium Chloride (0.9 % Sodium Chloride Flush 3 Ml Syringe) [facility] Last Admin: 10/13/21 08:51 Dose: Not Given Tamsulosin HCl (Tamsulosin Hcl 0.4 Mg Capsule) 0.4 mg PO BEDTIME [facility] Last Admin: 10/12/21 20:59 Dose: 0.4 mg Home Medications Medication Instructions Recorded Confirmed Last Taken Type benztropine 2 mg tablet 2 mg PO BID 02/16/21 10/12/21 Unknown History docusate sodium 100 mg capsule 100 mg PO BID 02/16/21 10/12/21 Unknown History elviteg 150 mg-cob 150 mg-emtricit 1 tab PO DAILY 02/16/21 10/12/21 Unknown History 200 mg-tenofo alafenam 10 mg tablet (Genvoya) insulin aspar prot-insulin aspart 15 - 50 unit subcut BEDTIME 02/16/21 10/12/21 Unknown History 100 unit/mL (70-30) subcutaneous pen (Novolog Mix 70-30FlexPen U-100) lithium carbonate 300 mg tablet 900 mg PO DAILY 02/16/21 10/12/21 Unknown History pen needle, diabetic 32 gauge x #50 ea 02/16/21 03/05/21 Unknown History (BD Viv 2nd Gen Pen Needle) pravastatin 40 mg tablet 40 mg PO BEDTIME 02/16/21 10/12/21 Unknown History propranolol 20 mg tablet 20 mg PO DAILY 02/16/21 10/12/21 Unknown History risperidone 3 mg tablet 6 mg PO BEDTIME 02/16/21 10/12/21 Unknown History insulin aspar prot-insulin aspart 15 - 50 unit subcut DAILY 03/05/21 10/12/21 Unknown History 100 unit/mL (70-30) subcutaneous pen (Novolog Mix 70-30FlexPen U-100) omeprazole 20 mg capsule,delayed 1 cap PO DAILY 03/05/21 10/12/21 Unknown History release naproxen 500 mg tablet 1 tab PO BID PRN Pain 06/15/21 10/12/21 Unknown History uyfdmfek-dgx-nfsjy acid 0.4 1 tab PO DAILY 07/27/21 10/12/21 Unknown History mg-lycopene 300 mcg-lutein 250 mcg tablet (Cerovite Senior) pregabalin 100 mg capsule 1 cap PO BID 07/27/21 10/12/21 Unknown History blood sugar diagnostic (FreeStyle #10 ea 09/02/21 Unknown History Lite Strips) polyethylene glycol 3350 17 17 g PO DAILY 09/02/21 10/12/21 Unknown History gram/dose oral powder (Gavilax) ketoconazole 2 % shampoo 1 appl topical Q7D 10/12/21 10/12/21 Unknown History Physical Exam Vital Signs: Vital Signs: Last Vital Signs Temp 98 F 10/13/21 11:12 Pulse 64 10/13/21 11:12 Resp 16 10/13/21 11:12 BP 107/69 10/13/21 11:12 Pulse Ox 99 10/13/21 11:12 O2 Del Method 10/13/21 11:12 BMI result Body Mass Index 22.0 Const: Other: Has tremors General: comfortable and no acute distress Orie ntation/consciousness: patient oriented x3 Neck: Neck: Yes no lymphadenopathy Resp: Auscultation: clear to auscultation bilaterally Cardio: Rhythm: regular rhythm GI: Palpation (GI): Soft to palpation, nontender and no guarding Neuro: General: patient oriented x3 Extrem: Other: Coarse tremor on the upper extremities especially At the plantar aspect right foot is note of 2 very thick calluses, each 1 measuring about 3 cm in diameter each. I did sharply debrided this using a pair of scissors. I removed the thickened and hyperkeratotic layers. There is no significant drainage or any gangrene.; Similar calluses are noted on the plantar aspect of the left foot, no evidence of gangrene, no pus, no fluctuance Results Labs Result diagrams: 10/14/21 05:16 10/14/21 05:16 Labs: Abnormal lab results 10/12/21 10/13/21 10/13/21 Range/Units 16:13 05:17 05:17 WBC 13.3 H (4.8-10.8) X10*3/uL RBC 3.65 L (4.60-5.80) X10*6/uL Hgb 11.4 L (14.0-18.0) g/dl Hct 33.9 L (42.0-52.0) % Plt Count 112 L (160-400) X10*3/uL Chloride 111 H (96-108) mmol/L POC Glucose 164 H (60-115) mg/dL Random Glucose 148 H (60-115) mg/dL 10/13/21 10/13/21 10/13/21 Range/Units 06:53 09:09 11:12 WBC (4.8-10.8) X10*3/uL RBC (4.60-5.80) X10*6/uL Hgb (14.0-18.0) g/dl Hct (42.0-52.0) % Plt Count (160-400) X10*3/uL Chloride (96-108) mmol/L POC Glucose 174 H 258 H 208 H (60-115) mg/dL Random Glucose (60-115) mg/dL Short CBC 10/13/21 Range/Units 05:17 WBC 13.3 H (4.8-10.8) X10*3/uL Hgb 11.4 L (14.0-18.0) g/dl Hct 33.9 L (42.0-52.0) % Plt Count 112 L (160-400) X10*3/uL BMP 10/13/21 05:17 Sodium 143 Potassium 3.5 Chloride 111 H Carbon Dioxide 23 BUN 13 Creatinine 1.08 Calcium 8.9 Urine 10/11/21 Range/Units 23:09 Urine Color Yellow Urine Appearance Clear Urine pH 6.5 (5.0-9.0) Ur Specific [place] 1.010 (1.005-1.025) Urine Protein Negative (Neg-Trace) mg/dL Urine Glucose (UA) Negative (Negative) mg/dL All other labs normal. Assessment and Plan (1) Callus of foot: Status: Acute He has very thick calluses on the aspect of the right foot x2. I did sharp excisional debridement to remove this hyperkeratotic areas. There is no open wound nor any draining sinus. He is currently being treated for a pneumonia. He clinically looks well however. I will follow along while he is in the hospital. It is unlikely that his calluses are source of his bacteremia. There is no suggestion of any plantar abscess. I will periodically check on his feet to see if we need to do further debridement down the line Procedures Date of Service Date of Service: 10/13/21
[2021-10-13 16:00] VITALS: BP 110/62; PULSE 70; RESP 17; TEMP 36.6; O2SAT 96
[2021-10-13 17:08] LABS: Glucose, Whole Blood 111 mg/dL (60-115)
[2021-10-13] MEDS: Pravastatin Sodium 40 MG TABLET PO (19:48)
[2021-10-13] MEDS: Tamsulosin HCL 0.4 MG CAPSULE PO (19:48)
[2021-10-13 20:00] VITALS: BP 129/77; PULSE 75; RESP 18; TEMP 36.5; O2SAT 97
[2021-10-13 21:16] LABS: Glucose, Whole Blood 132 mg/dL (60-115)
[2021-10-13] MEDS: Azithromycin 500 MG in 0.9 % Sodium Chloride 250 ML 125 MG IV (22:22)
[2021-10-13] MEDS: Enoxaparin Sodium 40 MG/0.4 ML SYRINGE SUBCUT (22:22)
[2021-10-14] VITALS: BP 119/68; PULSE 70; RESP 18; TEMP 36.4; O2SAT 97
[2021-10-14] MEDS: 0.9 % Sodium Chloride Flush 3 ML SYRINGE IVFLUSH ×3 (00:31→08:10)
[2021-10-14] MEDS: Piperacillin Sodium/Tazobactam 3.375 GM in 0.9 % Sodium Chloride 50 ML IV ×4 (03:09→20:49)
[2021-10-14 04:00] VITALS: BP 126/73; PULSE 63; RESP 18; TEMP 36.5; O2SAT 97
[2021-10-14] MEDS: Omeprazole 20 MG CAPSULE.DR PO (05:53)
[2021-10-14 06:27] LABS: Hematocrit 33.5 % (42.0-52.0); Hemoglobin 11.8 g/dl (14.0-18.0); Mean Corpuscular HGB Conc 35.2 g/dl (31.0-36.0); Mean Corpuscular Hemoglobin 31.8 pg (27.0-33.0); Mean Corpuscular Volume 90.3 fL (80.0-98.0); Platelet Count 131 X10*3/uL (160-400); Red Blood Count 3.71 X10*6/uL (4.60-5.80); Red Cell Distribution Width 13.1 % (11.0-16.0); White Blood Count 11.2 X10*3/uL (4.8-10.8)
[2021-10-14 07:08] LABS: Anion Gap 14 (12-20); Blood Urea Nitrogen 15 mg/dL (9-16); Calcium 9.2 mg/dL (8.4-10.2); Carbon Dioxide 23 mmol/L (22-29); Chloride 110 mmol/L (96-108); Creatinine Clr Calc Pharmacy 70.9; Estimated Glomerular Filt Rate > 60; Glucose Random 157 mg/dL (60-115); Potassium 3.7 mmol/L (3.3-5.1); Sodium 143 mmol/L (135-145)
[2021-10-14 07:16] VITALS: BP 120/67; PULSE 69; RESP 16; TEMP 36.3; O2SAT 98
[2021-10-14 07:27] LABS: Glucose, Whole Blood 150 mg/dL (60-115)
[2021-10-14] MEDS: Insulin Glargine,Hum.rec.anlog 100 UNIT/ML 10 ML VIAL 12 UNIT SUBCUT (07:58)
[2021-10-14] MEDS: Pregabalin 100 MG CAPSULE PO (07:59)
[2021-10-14] MEDS: Benztropine Mesylate 1 MG TABLET 2 MG PO (07:59)
[2021-10-14] MEDS: Propranolol HCL 20 MG TABLET PO (07:59)
[2021-10-14] MEDS: Lithium Carbonate 300 MG CAPSULE 900 MG PO (07:59)
[2021-10-14] MEDS: Docusate Sodium 100 MG CAPSULE PO (07:59)
[2021-10-14] MEDS: Finasteride 5 MG TABLET PO (07:59)
[2021-10-14] MEDS: Multivitamin TABLET 1 TAB PO (08:00)
[2021-10-14 10:59] VITALS: BP 123/93; PULSE 63; RESP 17; TEMP 36.3; O2SAT 100
[2021-10-14 11:12] LABS: Glucose, Whole Blood 182 mg/dL (60-115)
[2021-10-14] MEDS: Insulin Lispro 100 UNIT/ML 3 ML VIAL SUBCUT (11:39)
--- NOTE | 2021-10-14 13:02 | PM.PNGS ---
Subjective Subjective Date of Service: 10/14/21 Interval history: Denies any foot pain Wants to go home Says he feels well Physical Exam Vital Signs: Vital Signs: Last Vital Signs Temp 97.4 F 10/14/21 10:59 Pulse 63 10/14/21 10:59 Resp 17 10/14/21 10:59 BP 123/93 H 10/14/21 10:59 Pulse Ox 100 10/14/21 10:59 O2 Del Method 10/14/21 10:59 BMI result Body Mass Index 22.0 Const: General: comfortable and no acute distress Resp: Effort & Inspection: normal respiratory effort Cardio: Rate: regular rate GI: Palpation (GI): Soft to palpation and nontender Extrem: Other: Thick calluses on both the plantar aspect of the left and right feet, no gangrene, no pus, no fluctuance Objective Data Active Medications Benztropine Mesylate (Benztropine Mesylate 1 Mg Tablet) 2 mg PO BID [facility] Last Admin: 10/14/21 07:59 Dose: 2 mg Documented By: EVENS Dextrose (Dextrose 50 % 25 Gm/50 Ml Syringe) 25 gm IVPUSH Q15M PRN; Protocol PRN Reason: per Hypoglycemia Standing Ord. Docusate Sodium (Docusate Sodium 100 Mg Capsule) 100 mg PO DAILY PRN PRN Reason: Constipation Docusate Sodium (Docusate Sodium 100 Mg Capsule) 100 mg PO BID [facility] Last Admin: 10/14/21 07:59 Dose: 100 mg Documented By: EVENS Enoxaparin Sodium (Enoxaparin Sodium 40 Mg/0.4 Ml Syringe) 40 mg SUBCUT Q24H [facility] Last Admin: 10/13/21 22:22 Dose: 40 mg Documented By: VIKI Finasteride (Finasteride 5 Mg Tablet) 5 mg PO DAILY [facility] Last Admin: 10/14/21 07:59 Dose: 5 mg Documented By: EVENS Glucose (Glucose Gel 15 Gm Gel..Gram.) 15 gm PO Q15M PRN; Protocol PRN Reason: per Hypoglycemia Standing Ord. Piperacillin Sod/Tazobactam (Sod 3.375 gm/ Sodium Chloride) 50 mls @ 100 mls/hr IV Q6H [facility] Last Infusion: 10/14/21 09:55 Dose: 0 mls/hr Documented By: EVENS Insulin Glargine (Insulin Glargine,Hum.Rec.Anlog 100 Unit/Ml 10 Ml Vial) 12 unit SUBCUT DAILY [facility] Last Admin: 10/14/21 07:58 Dose: 12 unit Documented By: EVENS Insulin Human Lispro (Insulin Lispro 100 Unit/Ml 3 Ml Vial) 0 unit SUBCUT QIDACHS [facility]; Protocol Last Admin: 10/14/21 11:39 Dose: 2 unit Documented By: EVENS [place] Carbonate ([place] Carbonate 300 Mg Capsule) 900 mg PO DAILY [facility] Last Admin: 10/14/21 07:59 Dose: 900 mg Documented By: EVENS Multivitamins/Vitamin C (Multivitamin Tablet) 1 tab PO DAILY [facility] Last Admin: 10/14/21 08:00 Dose: 1 tab Documented By: EVENS Pt Own ([Genvoya] [phone] Mg Tablet) 1 tab PO DAILY [facility] Last Admin: 10/14/21 08:01 Dose: 1 tab Documented By: EVENS Omeprazole (Omeprazole 20 Mg Capsule.Dr) 20 mg PO DAILY@0630 [facility] Last Admin: 10/14/21 05:53 Dose: 20 mg Documented By: TRINO Ondansetron HCl (Ondansetron Hcl 4 Mg/2 Ml Vial) 4 mg IVPUSH Q8H PRN PRN Reason: Nausea and Vomiting Polyethylene Glycol (Polyethylene Glycol 3350 17 Gm Powd.Pack) 17 gm PO DAILY [facility] Last Admin: 10/14/21 08:02 Dose: Not Given Documented By: EVENS Non-Admin Reason: Patient Refused Pravastatin Sodium (Pravastatin Sodium 40 Mg Tablet) 40 mg PO BEDTIME [facility] Last Admin: 10/13/21 19:48 Dose: 40 mg Documented By: VIKI Pregabalin (Pregabalin 100 Mg Capsule) 100 mg PO BID [facility] Last Admin: 10/14/21 07:59 Dose: 100 mg Documented By: EVENS Propranolol HCl (Propranolol Hcl 20 Mg Tablet) 20 mg PO DAILY [facility]; Protocol Last Admin: 10/14/21 07:59 Dose: 20 mg Documented By: EVENS Sodium Chloride (0.9 % Sodium Chloride Flush 3 Ml Syringe) 3 ml IVFLUSH QSHIFT [facility] Last Admin: 10/14/21 08:10 Dose: 3 ml Documented By: EVENS Tamsulosin HCl (Tamsulosin Hcl 0.4 Mg Capsule) 0.4 mg PO BEDTIME [facility] Last Admin: 10/13/21 19:48 Dose: 0.4 mg Documented By: VIKI Labs CBC & Chem 7: 10/14/21 05:16 10/14/21 05:16 Labs: Laboratory Results - last 24 hr 10/13/21 10/13/21 10/14/21 17:03 21:12 05:16 MCV 90.3 MCH 31.8 MCHC 35.2 RDW 13.1 Plt Count 131 L MPV 12.0 Absolute Nucleated RBC 0.000 Nucleated RBC % (auto) 0.0 Anion Gap Estim Creat Clear Calc Estimated GFR POC Glucose 111 132 H Random Glucose Calcium 10/14/21 10/14/21 10/14/21 05:16 07:21 11:08 MCV MCH MCHC RDW Plt Count MPV Absolute Nucleated RBC Nucleated RBC % (auto) Anion Gap 14 Estim Creat Clear Calc 70.9 Estimated GFR > 60 POC Glucose 150 H 182 H Random Glucose 157 H Calcium 9.2 Microbiology Microbiology Results: Microbiology 10/11/21 20:48 Blood Culture - Preliminary Blood - Venous Enterococcus faecalis 10/11/21 20:48 Blood Culture - Preliminary Blood - Venous Enterococcus faecalis Procedures Date of Service Date of Service: 10/14/21 Progress Note: A&P Assessment and plan (1) Callus of foot: Status: Acute Assessment and Plan: He has thick calluses on plantar aspects of the left and right feet. These do not appear to be infected. These unlikely to be the source of his bacteremia No surgical intervention planned at this time Discussed with Dr. Wade as well Time Spent With Patient Time: Total time spent is greater than 50% in coordination of care (as documented) at patient's floor/unit and/or counseling patient: Quality Stroke Does the patient have a stroke diagnosis?: No VTE Prior VTE?: No VTE Risk Level:: Medical - moderate - high VTE Device Contraindication: Treatment Not Indicated VTE Drug Contraindication: N/A - Med Ordered
[2021-10-14 15:20] VITALS: BP 94/60; PULSE 71; RESP 18; TEMP 36.3; O2SAT 99
--- NOTE | 2021-10-14 15:30 | P.PNIM_ITS ---
Subjective Subjective Date of Service: 10/14/21 Interval History: Patient feeling better this morning denies fever chills, no cough, no shortness of breath, no nausea, no vomiting, no abdominal pain, no diarrhea tolerating diet, no leg pain, wishes to be discharged home Review of Systems CAR HIKER no headache no dizziness CVS no chest pain, no palpitation no urinary frequency, no urgency Review of Systems: Yes all other systems are reviewed and are negative Physical Exam Vital Signs: Vital Signs: Last Vital Signs Temp 97.3 F 10/14/21 15:20 Pulse 71 10/14/21 15:20 Resp 18 10/14/21 15:20 BP 94/60 10/14/21 15:20 Pulse Ox 99 10/14/21 15:20 O2 Del Method 10/14/21 15:20 BMI result Body Mass Index 22.0 Const: Other: General resting co mfortably, no acut e distress.? anict liat sclerae Neck no JVD. CVS? regul ar rate rhythm, Re spiratory lungs cl ear to auscultatio n, no respiratory distress, no wheez e, no rhonchi. Gas trointestinal abdo men soft, nontende r, bowel sounds au dible, no guarding , no rigidity. Ex tremities no edema .? Both feet? plan tar surface with t hick calluses/ ulc eration Neuro nonf ocal / bilateral h and tremor Skin no rash Objective Data Active Medications Benztropine Mesylate (Benztropine Mesylate 1 Mg Tablet) 2 mg PO BID [facility] Last Admin: 10/14/21 07:59 Dose: 2 mg Documented By: EVENS Dextrose (Dextrose 50 % 25 Gm/50 Ml Syringe) 25 gm IVPUSH Q15M PRN; Protocol PRN Reason: per Hypoglycemia Standing Ord. Docusate Sodium (Docusate Sodium 100 Mg Capsule) 100 mg PO DAILY PRN PRN Reason: Constipation Docusate Sodium (Docusate Sodium 100 Mg Capsule) 100 mg PO BID [facility] Last Admin: 10/14/21 07:59 Dose: 100 mg Documented By: EVENS Enoxaparin Sodium (Enoxaparin Sodium 40 Mg/0.4 Ml Syringe) 40 mg SUBCUT Q24H [facility] Last Admin: 10/13/21 22:22 Dose: 40 mg Documented By: VIKI Finasteride (Finasteride 5 Mg Tablet) 5 mg PO DAILY [facility] Last Admin: 10/14/21 07:59 Dose: 5 mg Documented By: EVENS Glucose (Glucose Gel 15 Gm Gel..Gram.) 15 gm PO Q15M PRN; Protocol PRN Reason: per Hypoglycemia Standing Ord. Piperacillin Sod/Tazobactam (Sod 3.375 gm/ Sodium Chloride) 50 mls @ 100 mls/hr IV Q6H [facility] Last Infusion: 10/14/21 15:26 Dose: 0 mls/hr Documented By: EVENS Insulin Glargine (Insulin Glargine,Hum.Rec.Anlog 100 Unit/Ml 10 Ml Vial) 12 u nit SUBCUT DAILY [facility] Last Admin: 10/14/21 07:58 Dose: 12 unit Documented By: EVENS Insulin Human Lispro (Insulin Lispro 100 Unit/Ml 3 Ml Vial) 0 unit SUBCUT QIDACHS [facility]; Protocol Last Admin: 10/14/21 11:39 Dose: 2 unit Documented By: EVENS [place] Carbonate ([place] Carbonate 300 Mg Capsule) 900 mg PO DAILY [facility] Last Admin: 10/14/21 07:59 Dose: 900 mg Documented By: EVENS Multivitamins/Vitamin C (Multivitamin Tablet) 1 tab PO DAILY [facility] Last Admin: 10/14/21 08:00 Dose: 1 tab Documented By: EVENS Pt Own ([Genvoya] [phone] Mg Tablet) 1 tab PO DAILY [facility] Last Admin: 10/14/21 08:01 Dose: 1 tab Documented By: EVENS Omeprazole (Omeprazole 20 Mg Capsule.Dr) 20 mg PO DAILY@0630 [facility] Last Admin: 10/14/21 05:53 Dose: 20 mg Documented By: TRINO Ondansetron HCl (Ondansetron Hcl 4 Mg/2 Ml Vial) 4 mg IVPUSH Q8H PRN PRN Reason: Nausea and Vomiting Polyethylene Glycol (Polyethylene Glycol 3350 17 Gm Powd.Pack) 17 gm PO DAILY [facility] Last Admin: 10/14/21 08:02 Dose: Not Given Documented By: EVENS Non-Admin Reason: Patient Refused Pravastatin Sodium (Pravastatin Sodium 40 Mg Tablet) 40 mg PO BEDTIME [facility] Last Admin: 10/13/21 19:48 Dose: 40 mg Documented By: VIKI Pregabalin (Pregabalin 100 Mg Capsule) 100 mg PO BID [facility] Last Admin: 10/14/21 07:59 Dose: 100 mg Documented By: EVENS Propranolol HCl (Propranolol Hcl 20 Mg Tablet) 20 mg PO DAILY [facility]; Protocol Last Admin: 10/14/21 07:59 Dose: 20 mg Documented By: EVENS Sodium Chloride (0.9 % Sodium Chloride Flush 3 Ml Syringe) 3 ml IVFLUSH QSHIFT [facility] Last Admin: 10/14/21 08:10 Dose: 3 ml Documented By: EVENS Tamsulosin HCl (Tamsulosin Hcl 0.4 Mg Capsule) 0.4 mg PO BEDTIME [facility] Last Admin: 10/13/21 19:48 Dose: 0.4 mg Documented By: VIKI Labs CBC & Chem 7: 10/14/21 05:16 10/14/21 05:16 Labs: Laboratory Results - last 24 hr 10/13/21 10/13/21 10/14/21 17:03 21:12 05:16 MCV 90.3 MCH 31.8 MCHC 35.2 RDW 13.1 Plt Count 131 L MPV 12.0 Absolute Nucleated RBC 0.000 Nucleated RBC % (auto) 0.0 Anion Gap Estim Creat Clear Calc Estimated GFR POC Glucose 111 132 H Random Glucose Calcium 10/14/21 10/14/21 10/14/21 05:16 07:21 11:08 MCV MCH MCHC RDW Plt Count MPV Absolute Nucleated RBC Nucleated RBC % (auto) Anion Gap 14 Estim Creat Clear Calc 70.9 Estimated GFR > 60 POC Glucose 150 H 182 H Random Glucose 157 H Calcium 9.2 Microbiology Microbiology Results: Microbiology 10/11/21 20:48 Blood Culture - Preliminary Blood - Venous Enterococcus faecalis 10/11/21 20:48 Blood Culture - Preliminary Blood - Venous Enterococcus faecalis Assessment and Plan (1) Pneumonia: Status: Acute Plan 55-year-old male with past medical history of diabetes, HIV presents to the hospital with fever found to have likely pneumonia # sepsis due to pneumonia/ skin wounds patient's meets sepsis criteria due to fever, tachycardia, lactic acidosis 2.3, WBC normal on arrival, later bumped to 18.3 gradually trended down to 11.2 this morning blood cultures x2 grew Enterococcus faecalis, on IV Zosyn day 3, will DC azithromycin was ordered for atypical coverage Case discussed with ID she recommend CT abdomen and pelvis to find out source of infection UA is negative, stable renal function history of strep agalactie foot wound/ history of 5th metatarsal head osteomyelitis noted on 03/08/2021 MRI history of recent COVID-19 infection in September. Supportive care with as n eeded oxygen/ cough medication. Dr. Wade recommend linezolid for 14 days, will adjust antibiotics after reviewing abdominal CT scan # diabetes - blood sugar stable, at home take NovoLog mix 70 30 b.i.d., continue insulin sliding scale, diabetic diet and Lantus 12u # HIV - last CD count was stable, and last HIV count undetectable - continue home treatment # BPH - continue tamsulosin and finasteride # Schizoaffective disorder continue home medications, no behavioral issues # tobacco use disorder counseling done patient declined patch, has been smoking for greater than 40 years no plan to quit. # essential tremors continue propranolol DVT prophylaxis:? Lovenox patient's need continued inpatient hospitalization due to bacteremia, on IV antibiotic . Quality Stroke Does the patient have a stroke diagnosis?: No VTE Prior VTE?: No VTE Risk Level:: Medical - moderate - high VTE Device Contraindication: Treatment Not Indicated VTE Drug Contraindication: N/A - Med Ordered
[2021-10-14 15:35] LABS: Glucose, Whole Blood 113 mg/dL (60-115)
[2021-10-14] MEDS: iohexoL 350 MG/ML 100 ML INFUS..BTL IV (18:55)
[2021-10-14 18:58] VITALS: BP 114/60; PULSE 67; TEMP 36.3; O2SAT 98
[2021-10-14 19:16] LABS: Glucose, Whole Blood 157 mg/dL (60-115)
--- NOTE | 2021-10-14 22:26 | P.CNID_ITS ---
History of Present Illness Data of Consult Service Date: 10/14/21 Requesting physician: Alivia Rock Primary Care Provider: Shell Lopez MD HPI Reason for consult: bacteremia He presents with chills and weakness as well as fatigue for a day and is brought in by his residential home. He says he has calluses bilateral feet and was seen by Surgery in hospital and areas look chronic on feet. He has no dysuria or abdominal pain. Blood culture enterococcus faecalis x 2,pending sensitivities. Review of Systems Review of Systems: Yes all other systems are reviewed and are negative [facility] Past Medical History Medical History (Updated 10/14/21 @ 22:37 by Angie Wade MD) BPH w urinary obs/LUTS Callus of foot Chronic prostatitis Diabetic foot ulcers Enterococcal bacteremia Erectile dysfunction due to arterial insufficiency Eschar of foot Hepatitis HIV (human immunodeficiency virus infection) Open wnd foot-complicated Osteomyelitis of left foot Sepsis Urinary hesitancy Family History Family History Father No problems noted. Mother No problems noted. Family history: reviewed and not pertinent Surgical History Surgical History No pertinent past surgical history Social History Social History Household Members: Caregiver Housing: Other Housing Other:: longterm Do you presently have visiting nurse or other home services: Yes Unable to assess alcohol history related to: Unknown Alcohol intake: former Patient Tobacco Use Status: Tobacco use Unknown Use of substances other than those prescribed or required for medical reasons: Unknown Currently Displaying Signs/Symptoms of Drug Intoxication Withdrawal: No Advance Directives: No Advance Directives Information Provided: No Do you have thoughts of harming others: None Do you have a plan to hurt others: No Plan Recently lost weight without trying: Unsure How much weight loss: Unsure Nutrition Risks: No Nutritional Risk service: No Current occupational status: unemployed Meds Allergies Allergy/AdvReac Type Severity Reaction Status Date / Time acetaminophen [From TYLENOL] Allergy Unknown UNKNOWN Verified 09/02/21 08:36 aspirin [ASA] Allergy Unknown AGITATION Verified 09/02/21 08:36 trazodone [TRAZODONE] AdvReac Unknown HYPER Verified 09/02/21 08:36 Active Medications: Current Medications Benztropine Mesylate (Benztropine Mesylate 1 Mg Tablet) 2 mg PO BID [facility] Last Admin: 10/14/21 21:28 Dose: Not Given Dextrose (Dextrose 50 % 25 Gm/50 Ml Syringe) 25 gm IVPUSH Q15M PRN; Protocol PRN Reason: per Hypoglycemia Standing Ord. Docusate Sodium (Docusate Sodium 100 Mg Capsule) 100 mg PO DAILY PRN PRN Reason: Constipation Docusate Sodium (Docusate Sodium 100 Mg Capsule) 100 mg PO BID [facility] Last Admin: 10/14/21 21:29 Dose: Not Given Enoxaparin Sodium (Enoxaparin Sodium 40 Mg/0.4 Ml Syringe) 40 mg SUBCUT Q24H [facility] Last Admin: 10/13/21 22:22 Dose: 40 mg Finasteride (Finasteride 5 Mg Tablet) 5 mg PO DAILY [facility] Last Admin: 10/14/21 07:59 Dose: 5 mg Glucose (Glucose Gel 15 Gm Gel..Gram.) 15 gm PO Q15M PRN; Protocol PRN Reason: per Hypoglycemia Standing Ord. Piperacillin Sod/Tazobactam (Sod 3.375 gm/ Sodium Chloride) 50 mls @ 100 mls/hr IV Q6H [facility] Last Infusion: 10/14/21 21:30 Dose: Infused Insulin Glargine (Insulin Glargine,Hum.Rec.Anlog 100 Unit/Ml 10 Ml Vial) 12 unit SUBCUT DAILY [facility] Last Admin: 10/14/21 07:58 Dose: 12 unit Insulin Human Lispro (Insulin Lispro 100 Unit/Ml 3 Ml Vial) 0 unit SUBCUT QIDACHS [facility]; Protocol Last Admin: 10/14/21 21:29 Dose: Not Given [place] Carbonate ([place] Carbonate 300 Mg Capsule) 900 mg PO DAILY [facility] Last Admin: 10/14/21 07:59 Dose: 900 mg Multivitamins/Vitamin C (Multivitamin Tablet) 1 tab PO DAILY [facility] Last Admin: 10/14/21 08:00 Dose: 1 tab Pt Own ([Genvoya] [phone] Mg Tablet) 1 tab PO DAILY [facility] Last Admin: 10/14/21 08:01 Dose: 1 tab Omeprazole (Omeprazole 20 Mg Capsule.Dr) 20 mg PO DAILY@0630 [facility] Last Admin: 10/14/21 05:53 Dose: 20 mg Ondansetron HCl (Ondansetron Hcl 4 Mg/2 Ml Vial) 4 mg IVPUSH Q8H PRN PRN Reason: Nausea and Vomiting Polyethylene Glycol (Polyethylene Glycol 3350 17 Gm Powd.Pack) 17 gm PO DAILY [facility] Last Admin: 10/14/21 08:02 Dose: Not Given Pravastatin Sodium (Pravastatin Sodium 40 Mg Tablet) 40 mg PO BEDTIME [facility] Last Admin: 10/14/21 21:29 Dose: Not Given Pregabalin (Pregabalin 100 Mg Capsule) 100 mg PO BID [facility] Last Admin: 10/14/21 21:29 Dose: Not Given Propranolol HCl (Propranolol Hcl 20 Mg Tablet) 20 mg PO DAILY [facility]; Protocol Last Admin: 10/14/21 07:59 Dose: 20 mg Sodium Chloride (0.9 % Sodium Chloride Flush 3 Ml Syringe) 3 ml IVFLUSH QSHIFT [facility] Last Admin: 10/14/21 08:10 Dose: 3 ml Tamsulosin HCl (Tamsulosin Hcl 0.4 Mg Capsule) 0.4 mg PO BEDTIME [facility] Last Admin: 10/14/21 21:29 Dose: Not Given Home Medications Medication Instructions Recorded Confirmed Last Taken Type benztropine 2 mg tablet 2 mg PO BID 02/16/21 10/12/21 Unknown History docusate sodium 100 mg capsule 100 mg PO BID 02/16/21 10/12/21 Unknown History elviteg 150 mg-cob 150 mg-emtricit 1 tab PO DAILY 02/16/21 10/12/21 Unknown History 200 mg-tenofo alafenam 10 mg tablet (Genvoya) insulin aspar prot-insulin aspart 15 - 50 unit subcut BEDTIME 02/16/21 10/12/21 Unknown History 100 unit/mL (70-30) subcutaneous pen (Novolog Mix 70-30FlexPen U-100) lithium carbonate 300 mg tablet 900 mg PO DAILY 02/16/21 10/12/21 Unknown History pen needle, diabetic 32 gauge x #50 ea 02/16/21 03/05/21 Unknown History (BD Viv 2nd Gen Pen Needle) pravastatin 40 mg tablet 40 mg PO BEDTIME 02/16/21 10/12/21 Unknown History propranolol 20 mg tablet 20 mg PO DAILY 02/16/21 10/12/21 Unknown History risperidone 3 mg tablet 6 mg PO BEDTIME 02/16/21 10/12/21 Unknown History insulin aspar prot-insulin aspart 15 - 50 unit subcut DAILY 03/05/21 10/12/21 Unknown History 100 unit/mL (70-30) subcutaneous pen (Novolog Mix 70-30FlexPen U-100) omeprazole 20 mg capsule,delayed 1 cap PO DAILY 03/05/21 10/12/21 Unknown History release naproxen 500 mg tablet 1 tab PO BID PRN Pain 06/15/21 10/12/21 Unknown History gvvaktpd-bjs-uotoc acid 0.4 1 tab PO DAILY 07/27/21 10/12/21 Unknown History mg-lycopene 300 mcg-lutein 250 mcg tablet (Cerovite Senior) pregabalin 100 mg capsule 1 cap PO BID 07/27/21 10/12/21 Unknown History blood sugar diagnostic (FreeStyle #10 ea 09/02/21 Unknown History Lite Strips) polyethylene glycol 3350 17 17 g PO DAILY 09/02/21 10/12/21 Unknown History gram/dose oral powder (Gavilax) ketoconazole 2 % shampoo 1 appl topical Q7D 10/12/21 10/12/21 Unknown History Physical Exam Vital Signs: Vital Signs: Last Vital Signs Temp 97.4 F 10/14/21 18:58 Pulse 67 10/14/21 18:58 Resp 18 10/14/21 15:20 BP 114/60 10/14/21 18:58 Pulse Ox 98 10/14/21 18:58 O2 Del Method 10/14/21 18:58 BMI result Body Mass Index 22.0 Const: General: cooperative HEENT: Head: Yes normal to inspection Face and sinus: Yes normal facial exam Mouth: Normal oral and palatal mucosa present Teeth and gingiva: dentition normal Eyes: General: appearance normal, both eyes and all related structures Pupils: Equal, round and reactive pupils present Resp: Effort & Inspection: normal respiratory effort Cardio: Rate: regular rate Rhythm: regular rhythm GI: Palpation (GI): Soft to palpation and nontender : General: Yes no CVA tenderness Back/Spine/Pelvis: Back: no CVA tenderness Skin: General skin exam: no rashes or lesions noted Neuro: General: moves all extremities Cranial nerves: Yes Equal, round and reactive pupils present Extrem: Other: calluses below both great toes,slight bleeding after debridement Psych: Appearance: grossly normal Results Labs CBC & Chem 7: 10/14/21 05:16 10/14/21 05:16 Labs: Short CBC 10/14/21 Range/Units 05:16 WBC 11.2 H (4.8-10.8) X10*3/uL Hgb 11.8 L (14.0-18.0) g/dl Hct 33.5 L (42.0-52.0) % Plt Count 131 L (160-400) X10*3/uL BMP 10/14/21 05:16 Sodium 143 Potassium 3.7 Chloride 110 H Carbon Dioxide 23 BUN 15 Creatinine 1.08 Calcium 9.2 Microbiology Microbiology Results: Microbiology 10/11/21 20:48 Blood - Venous Blood Culture - Preliminary Enterococcus faecalis 10/11/21 20:48 Blood - Venous Blood Culture - Preliminary Enterococcus faecalis Assessment and Plan (1) Callus of foot: Status: Acute (2) Enterococcal bacteremia: Status: Acute He has possible bacteremia from idiopathic causes, no obvious UTI or abdominal causes. He has possible but less likely endocarditis. No antibiotic allergies Plan Check CT scan of abdomen and pelvis. Check echo evaluate endocarditis. Continue piperacillin/tazobactam for now. If no endocarditis then po linezolid 600 mg bid for 14 days
[2021-10-15] VITALS: BP 111/73; PULSE 65; RESP 18; TEMP 36.5; O2SAT 97
[2021-10-15] MEDS: Piperacillin Sodium/Tazobactam 3.375 GM in 0.9 % Sodium Chloride 50 ML IV ×3 (03:49→15:37)
[2021-10-15] MEDS: 0.9 % Sodium Chloride Flush 3 ML SYRINGE IVFLUSH ×2 (03:53→08:41)
[2021-10-15 04:00] VITALS: BP 102/65; PULSE 69; RESP 18; TEMP 36.7; O2SAT 98
[2021-10-15 07:09] VITALS: BP 121/76; PULSE 63; RESP 20; TEMP 36.8; O2SAT 97
[2021-10-15 07:30] LABS: Glucose, Whole Blood 153 mg/dL (60-115)
[2021-10-15] MEDS: Docusate Sodium 100 MG CAPSULE PO (08:41)
[2021-10-15] MEDS: Multivitamin TABLET 1 TAB PO (08:41)
[2021-10-15] MEDS: Pregabalin 100 MG CAPSULE PO (08:41)
[2021-10-15] MEDS: Propranolol HCL 20 MG TABLET PO (08:41)
[2021-10-15] MEDS: polyethylene glycoL 3350 17 GM POWD.PACK PO (08:41)
[2021-10-15] MEDS: Finasteride 5 MG TABLET PO (08:41)
[2021-10-15] MEDS: Lithium Carbonate 300 MG CAPSULE 900 MG PO (08:41)
[2021-10-15] MEDS: Benztropine Mesylate 1 MG TABLET 2 MG PO (08:41)
[2021-10-15] MEDS: Insulin Glargine,Hum.rec.anlog 100 UNIT/ML 10 ML VIAL 12 UNIT SUBCUT (08:42)
[2021-10-15] MEDS: Insulin Lispro 100 UNIT/ML 3 ML VIAL SUBCUT ×2 (08:42→11:37)
[2021-10-15 10:57] VITALS: BP 111/73; PULSE 65; RESP 20; TEMP 36.3; O2SAT 99
[2021-10-15 11:23] LABS: Glucose, Whole Blood 211 mg/dL (60-115)
--- NOTE | 2021-10-15 12:50 | CA_ITS ---
Transthoracic Echocardiogram Patient (Last, First, Middle): Leo Zhou, Gender: Male Date of : 1965 Age: 55 Procedure Date: 10/15/2021 Procedure Type: Transthoracic Echocardiogram Location: OP Height: 172.72 cm Weight: 65.32 kg BSA: 1.78 m2 Heart Rate: 61 bpm BP: 111 / 73 mmHg Brand Inspector: Referring MD: Glendy Knutson MD Symptoms: Bacteremia R O Endocarditis , pending DC Study Quality: Adequate ECG Rhythm: Sinus Conclusions: - Normal left ventricular size and systolic function. There is mildly increased left ventricular wall thickness. The visually estimated ejection fraction is between 60-65%. - Normal right ventricular cavity size and systolic function. - No significant valvular or pericardial pathology. Findings Left Ventricle Normal left ventricular size and systolic function. There is mildly increased left ventricular wall thickness. The visually estimated ejection fraction is between 60-65%. There is no evidence of regional wall motion abnormalities. Abnormal diastolic function is noted. Spectral Doppler is indicative of a pseudonormal filling pattern. E/E prime ratio is between 8 and 15 consistent with indeterminate filling pressures. Right Ventricle Normal right ventricular cavity size and systolic function. Atria Both atria are normal in size. Aortic Valve Normal aortic valve structure and function. There is no aortic valve stenosis. There is no aortic valve regurgitation. Mitral Valve Normal mitral valve structure and function. There is no mitral valve regurgitation. There is no mitral valve stenosis. Pulmonic Valve Normal pulmonic valve structure and function. There is no pulmonic valve regurgitation. Tricuspid Valve Normal tricuspid valve structure and function. There is trace tricuspid valve regurgitation. Normal right atrial pressure. There is no evidence of pulmonary hypertension. Great Vessels The visualized portions of the pulmonary artery and branches are normal. Venous The inferior vena cava is normal in size and collapses greater than 50% with inspiration. Pericardium/Pleural Normal pericardial structure. There is no evidence of pericardial effusion. Prior Study Comparison No prior study available for comparison. Measurements 2D Linear Measurements IVSd: 1.22 0.6-0.9/0.6-1.0 cm LVIDd: 4.61 3.9-5.3/4.2-5.9 cm LVIDd Index: 2.59 2.4-3.2/2.2-3.1 cm/m2 LVIDs: 2.96 2.0-3.6 cm LVPWd: 1.20 0.7-1.1 cm LA Diam: 3.70 2.7-3.8/3.0-4.0 cm LAIDs Index: 2.08 1.5-2.3 cm/m2 LV Mass: 259.44 67-162/88-224 g LV Mass Index: 145.75 43-95/49-115 g/m2 LVOT Diam: 2.10 3.0+(-)1.3 cm Mitral Valve MV Pk E: 0.84 MV PK A: 0.68 MV Decel Time: 244.00 E/A: 1.20 E'Lateral: 7.18 E'Medial: 7.29 E/E' Med: 11.50 E/E' Lat: 11.60 PHT: 72.00 MVA PHT: 3.06 Decel Dale: 3.42 Aortic Valve AoV Pk Nacho: 1.09 AoV Mn Nacho: 0.72 AoV VTI: 0.27 AoV Pk Grad: 5.00 Aov Mn Grad: 2.00 LUIS Cont.VTI: 2.19 LVOT LVOT Pk Nacho: 0.76 LVOT Mn Nacho: 0.46 LVOT VTI: 0.17 LVOT Pk Grad: 2.00 LVOT Mn Grad: 1.00 LVOT Diam: 2.10 LVOT Area: 3.46 Diastolic Function MV Pk E: 0.84 MV Pk A: 0.68 E/A: 1.20 E'Medial: 7.29 E/E' Med: 11.50 E' Laterial: 7.18 E/E' Lat: 11.60 Right Ventricle TAPSE (mm): 21.30 TVS' Nacho: 12.20 Tricuspid Valve TR Pk Nacho: 1.80 TR Pk Grad: 13.00 RA Press: 3.00 RVSP: 16.00 Great Vessels Aorta Sinus of Valsalva: 3.40 2.0-3.5 cm Ao Asc: 3.20 2.1-3.4 cm Pulmonary Valve PV Pk Nacho: 1.10 Peak PV Grad: 5.00 Updated in Other Vendor System with Status of Final Cristian Nielsen MD electronically signed on 10/15/2021 5:12:21 PM with status of Final
--- NOTE | 2021-10-15 14:34 | PC.NURSE ---
Pt high fall risk. Refusing bed alarm. Stating he should be able to walk around room freely. Avasys in place.
--- NOTE | 2021-10-15 14:50 | P.DS_ITS ---
DS: Providers Provider Date of Service: 10/15/21 Date of admission: 10/11/21 22:38 Primary care physician: Shell Lopez MD Consults: 10/13/21 13:46 Consult to Infectious Diseases Routine Consulting Provider: Angie Wade Reason for consultation: gm pos bacteremia Has provider been notified: No 10/13/21 13:47 Consult to General Surgery Routine Consulting Provider: Nigel Osman Reason for consultation: foot wounds Has provider been notified: No DS: Diagnosis Discharge Diagnosis (1) Callus of foot: Status: Acute (2) Enterococcal bacteremia: Status: Acute (3) Sepsis: Status: Acute (4) Acidosis, lactic: Status: Acute DS: Summary Hospital Course Hospital Course: Admission note HPI This is a 55-year-old male with past medical history of chronic prostatitis, diabetes, diabetic foot ulcers, HIV on treatment, presents to the hospital from [facility] with findings of fever.? Patient is Portuguese-speaking only, IA went to speak to him with the help of an hourly sign language interpreter but he does not want to talk to me, does not want to give history, he says that he is tired and he does not want to discuss his case therefore history is obtained mostly from ED physician.? According to the ED physician, patient had a fever and group home and was sent here for further evaluation. Of note patient was positive for COVID-19 in September On arrival to the ED patient had a fever of 102.5, heart rate of 103, blood pressure 100/47 Labs are significant for WBC count of 10.5, hemoglobin of 11.5, hematocrit of 33.9, lactic acid of 2.3, UA negative, COVID-19 negative Chest x-ray shows increased reticular markings within both lungs possible atypical infection/pneumonia Patient started on IV antibiotics will be admitted for further management Hospital course The patient was admitted for evaluation of sepsis. Believed to be secondary to possible pneumonia associated with lactic acidosis. Treated with IV antibiotics of Zosyn and azithromycin. Blood cultures grew Enterococcus faecalis. Discussed with Infectious Disease as CT abdomen came back negative for any possible source of infection. Id recommended an echo which was negative for any vegetations. The patient will be discharged on 2 weeks of Zyvox as recommended by ID and to follow-up in the wound clinic. Continue Zyvox for 2 weeks as prescribed To follow with the wound clinic as needed Come back to the hospital for any worsening fever, chills or difficulty breathing Time Spent with Patient Time attestation: Total time spent providing and/or coordinating discharge services: Discharge coordination time: Greater than 30 minutes Quality: Safe Use of Opioids Does Pt have an Active Cancer Diagnosis on the Problem List?: No Quality: Stroke Does the patient have a stroke diagnosis?: No Physical Exam Vital Signs: Vital Signs: Last Vital Signs Temp 97.4 F 10/15/21 10:57 Pulse 65 10/15/21 10:57 Resp 20 10/15/21 10:57 BP 111/73 10/15/21 10:57 Pulse Ox 99 10/15/21 10:57 O2 Del Method 10/15/21 10:57 BMI result Body Mass Index 22.0 Const: Other: Constitutional : A lert, oriented, no t in distress Neck : Normal inspecti on, Supple Cardiov ascular : RRR, no JVP, no lower extr emity edema Respir atory : fair bilat eral air entry, n o crackles, wheeze s or rhonchi Gastr ointestinal: soft , lax, Normal yeny l sounds, Non tend er Skin : Warm, Dr y, Both feet? plan tar surface with t hick calluses/ ulc eration Neurologic al : Alert & orien talha x3, No focal d eficit , CN 2-12 w ithin normal DS: Data Data Completed and Pending Completed studies during hospitalization [Text1]: Procedures Excision of Right Foot Skin, External Approach (06/15/21) Excision of Right Foot Subcutaneous Tissue and Fascia, Open Approach (07/27/21) Insertion of Infusion Device into Superior Vena Cava, Percutaneous Approach (03/05/21) Labs on day of discharge: Laboratory Results - last 24 hr 10/14/21 10/14/21 10/15/21 15:24 18:58 07:09 POC Glucose 113 157 H 153 H 10/15/21 10:59 POC Glucose [address] scan - abdomen: Radiologist's impression: ITS Impressions Chest X-Ray 10/11/21 21:35 IMPRESSION: 1. Slightly increased reticular markings within both lungs, nonspecific, possibly atypical infection/pneumonia. 2. No jo airspace consolidation or effusions. Head CT 10/11/21 22:45 IMPRESSION: No acute intracranial pathology. Abdomen CT 10/14/21 18:45 IMPRESSION: Unremarkable exam. Small left renal cysts. Fleischner guidelines were followed. Discharge Plan Discharge Patient Disposition: Home, Self-Care Discharge Diagnosis: Enterococcus bacteremia Referrals: Shell Lopez MD [Primary Care Provider] - 1 Week Discharge Medications: New linezolid [Zyvox] 600 mg tablet 600 mg PO Q12H 14 Days Qty: 28 0RF Continued tamsulosin 0.4 mg capsule 0.4 mg PO BEDTIME 30 Days Qty: 90 3RF finasteride 5 mg tablet 5 mg PO DAILY 90 Days Qty: 90 1RF omeprazole 20 mg capsule,delayed release(DR/EC) 1 cap PO DAILY insulin asp prt-insulin aspart [Novolog Mix 70-30FlexPen U-100] 100 unit/mL (70-30) insulin pen 15 - 50 unit subcut DAILY naproxen 500 mg tablet 1 tab PO BID PRN (Reason: Pain) Cerovite Senior 0.4 mg-300 mcg- 250 mcg Tablet 1 tab PO DAILY pregabalin 100 mg capsule 1 cap PO BID ketoconazole 2 % Shampoo 1 appl TOPICAL Q7D Genvoya [phone] mg tablet 1 tab PO DAILY (DME) pen needle, diabetic [BD Viv 2nd Gen Pen Needle] 32 gauge x 5/32 needle See Rx Instructions .ROUTE .MEDSUPPLY Qty: 50 Rx Instructions: As directed pravastatin 40 mg tablet 40 mg PO BEDTIME lithium carbonate 300 mg tablet 900 mg PO DAILY propranolol 20 mg tablet 20 mg PO DAILY risperidone 3 mg tablet 6 mg PO BEDTIME docusate sodium 100 mg capsule 100 mg PO BID benztropine 2 mg tablet 2 mg PO BID insulin asp prt-insulin aspart [Novolog Mix 70-30FlexPen U-100] 100 unit/mL (70-30) insulin pen 15 - 50 unit subcut BEDTIME polyethylene glycol 3350 [Gavilax] 17 gram/dose powder 17 g PO DAILY (DME) FreeStyle Lite Strips Strip See Rx Instructions Not Applicable QID Qty: 10 Rx Instructions: As directed Discharge Orders: Discharge Order (Routine); Ordered 10/15/21 Ordered By: Sara Carty Diet: Advance to usual diet Activity on Discharge: As tolerated Stand Alone Forms: Patient Portal Discharge page Care Plan Goals: Read below Health Concerns: Read below Plan of Treatment: Read below Assessment: You were admitted to the hospital for evaluation of sepsis that was believed to be a result of pneumonia. Treated with IV antibiotic with good response. Your blood cultures grew a bacteria called Enterococcus. Evaluated by infectious disease specialist as a CT scan of the abdomen an echo came back negative. Recommendations to finish 2 weeks of Zyvox. Continue Zyvox for 2 weeks as prescribed To follow with the wound clinic as needed Come back to the hospital for any worsening fever, chills or difficulty breathing Discharge Date/Time: 10/15/21 18:57
[2021-10-15 16:00] VITALS: BP 124/66; PULSE 78; RESP 20; TEMP 36.8; O2SAT 100
--- NOTE | 2021-10-15 16:17 | MHC.CM.PN ---
MD WAITING FOR ECHO RESULT, PATIENT'S DISCHARGE IS ANTICIPATED FOR TODAY 10/15 AT 6:30 PM ONCE HE IS MEDICALLY CLEARED. [facility] ASSISTED NURSE, TED [phone] AND TURNER ROBERT [phone] INFORMED OF ANTICIPATED DISCHARGE AND WILL SEND [facility] [employer]ERSON[employer] TO [employer] PATIENT. NURSE, TED REQUESTED SCRIPT FOR ANTIBIOTIC BE FAXED OVER TO [facility] ON [address] [facility] IN [place]. THEY ALSO REQUESTED GENVOYA MEDICATION BE RETURNED WITH PATIENT. PATIENT IS FOLLOWED BY [facility] AND TED WILL CONNECT WITH THEM ON MONDAY FOR FOLLOW-UP. MD AND NURSE HAVE BEEN INFORMED OF THE [facility] REQUESTS.
[2021-10-15 16:38] LABS: Glucose, Whole Blood 91 mg/dL (60-115)
== END 2021-10-15 18:57 | disposition home or self-care (01) | DRG 720 ==
LOC: HO.ED 22:49 → HO.EDOVER 22:52 → HO.S3 10-12 00:25
PROVIDERS: Emergency Medicine; Hospitalist; Admitting Provider Internal Medicine; Emergency Provider Internal Medicine; PCP Pediatrics; Visit Provider Student in an Organized Health Care Education/Training Program
DX: A41.9 Sepsis, unspecified organism (principal); J15.9 Unspecified bacterial pneumonia; F25.9 Schizoaffective disorder, unspecified; E78.5 Hyperlipidemia, unspecified; Z21 Asymptomatic human immunodeficiency virus [HIV] infection status; N40.0 Benign prostatic hyperplasia without lower urinary tract symptoms; L84 Corns and callosities; B95.2 Enterococcus as the cause of diseases classified elsewhere; I10 Essential (primary) hypertension; N18.2 Chronic kidney disease, stage 2 (mild); Z86.16 Personal history of COVID-19; Z20.822 Contact with and (suspected) exposure to COVID-19; Z88.6 Allergy status to analgesic agent; Z79.4 Long term (current) use of insulin; Z79.899 Other long term (current) drug therapy
CPT/HCPCS: 36415; 70450; 71045; 74160; 80048; 80076; 81003; 82947; 83605; 83735; 84484; 85025; 85027; 87040; 87077; 87186; 87205; 87635; 93005; 93306; 99285; J0456; J0696; J1650; J2543; Q9967

== ENCOUNTER 2021-12-13 13:54 | Outpatient (RCR) | payer MEDICAID, SELFPAY | END 2021-12-15 13:31 | disposition home or self-care (01) | LOC: HO.WCC 13:54 | PROVIDERS: PCP Pediatrics; Visit Provider Physician Assistant | DX: Z09 Encounter for follow-up examination after completed treatment for conditions other than malignant neoplasm (principal); L84 Corns and callosities; E11.9 Type 2 diabetes mellitus without complications; F17.210 Nicotine dependence, cigarettes, uncomplicated; Z79.4 Long term (current) use of insulin; Z86.31 Personal history of diabetic foot ulcer | CPT/HCPCS: 99213 ==

== ENCOUNTER 2021-12-31 20:11 | Inpatient (IN) | payer MEDICAID, SELFPAY ==
--- NOTE | ~2021-12-31 | XR_ITS ---
EXAMINATION: XR CHEST CLINICAL INFORMATION: Cough COMPARISON: CT abdomen pelvis 10/14/2021, chest radiograph 10/11/2021 TECHNIQUE: Frontal view of the chest was obtained. FINDINGS: Heart size within normal limits. No evidence of CHF. No pleural effusions. Again noted are some mildly increased reticular nodular markings which appear improved when compared to 10/11/2021. No acute consolidations. No worrisome lung masses. XR/XR chest 1V IMPRESSION: No acute intrathoracic disease.
--- NOTE | ~2021-12-31 | XR_ITS ---
EXAMINATION: XR FOOT, LEFT XR FOOT, RIGHT CLINICAL INFORMATION: Callus. Diabetes. Question bone erosion. COMPARISON: 09/08/2021 TECHNIQUE: 3 views of each foot FINDINGS: Left foot: No fracture or dislocation. Alignment is maintained. Joint spaces are maintained. There is soft tissue irregularity at the lateral aspect of the foot at the level of the fifth metatarsophalangeal joint. No osseous erosion. Prominent heel spurs. Right foot: No fracture or dislocation. Alignment maintained. Joint spaces are maintained. Prominent soft tissue swelling at the plantar aspect of the medial forefoot with soft tissue gas noted. No osseous erosions are seen. Prominent heel spurs. XR/XR foot LT 2V IMPRESSION: 1. Soft tissue gas at the plantar aspect of the right forefoot with soft tissue irregularity. No osseous erosions are seen. 2. Soft tissue irregularity at the lateral aspect of the left foot at the level of the fifth metatarsophalangeal joint. No osseous erosion.
--- NOTE | ~2021-12-31 | MR_ITS ---
EXAMINATION: MR FOOT WITHOUT AND WITH CONTRAST, RIGHT CLINICAL INFORMATION: Wound. Leukocytosis. COMPARISON: Most recent right foot radiographs dated 01/01/2022. TECHNIQUE: Multisequence MR imaging of the right foot was obtained before and after the IV administration of 6.5 mL Gadavist contrast on a high-field strength scanner. FINDINGS: Soft tissue ulceration along the plantar aspect of the 1st metatarsal head with skin thickening, subcutaneous edema, and enhancement consistent with acute cellulitis. There is fat stranding and enhancement extending adjacent to the 2nd phalanx as well as proximally along the dorsal aspect of the foot. No organized fluid collection/abscess formation. There is attenuation/cortical erosion along the plantar aspect of the tibial hallux sesamoid without significant postcontrast enhancement. Findings could represent sequela of chronic osteomyelitis. No significant marrow edema to suggest a more acute osteomyelitis. Articular cartilage thinning with marginal osteophytes and subchondral cystic change at the 1st and 2nd tarsometatarsal joints. No stress reaction or fracture. Diffuse edema throughout the intrinsic musculature of the foot which can be seen in diabetic patients. The visualized flexor and extensor tendons are intact. MR/MR foot RT wo/w con IMPRESSION: 1. Soft tissue ulceration along the plantar aspect of the 1st metatarsal head with associated cellulitis. No organized fluid collection/abscess formation. 2. Attenuation/cortical erosion along the plantar aspect of the tibial hallux sesamoid without significant postcontrast enhancement. Findings could represent sequela of chronic osteomyelitis. No significant marrow edema to suggest more acute osteomyelitis. 3. Mild osteoarthritis at the 1st and 2nd tarsometatarsal joints. 4. Diffuse edema throughout the intrinsic foot musculature which can be seen in diabetic patients.
--- NOTE | ~2021-12-31 | XR_ITS ---
EXAMINATION: XR FOOT, LEFT XR FOOT, RIGHT CLINICAL INFORMATION: Callus. Diabetes. Question bone erosion. COMPARISON: 09/08/2021 TECHNIQUE: 3 views of each foot FINDINGS: Left foot: No fracture or dislocation. Alignment is maintained. Joint spaces are maintained. There is soft tissue irregularity at the lateral aspect of the foot at the level of the fifth metatarsophalangeal joint. No osseous erosion. Prominent heel spurs. Right foot: No fracture or dislocation. Alignment maintained. Joint spaces are maintained. Prominent soft tissue swelling at the plantar aspect of the medial forefoot with soft tissue gas noted. No osseous erosions are seen. Prominent heel spurs. XR/XR foot RT 2V IMPRESSION: 1. Soft tissue gas at the plantar aspect of the right forefoot with soft tissue irregularity. No osseous erosions are seen. 2. Soft tissue irregularity at the lateral aspect of the left foot at the level of the fifth metatarsophalangeal joint. No osseous erosion.
[2021-12-31 20:18] VITALS: BP 120/80; BP 123/67; PULSE 108; PULSE 84; RESP 20; TEMP 37.7; O2SAT 100; O2SAT 98; BMI 21.9
[2021-12-31 21:03] LABS: Basophils Percent Auto 0.2 % (0-2); PLT CLUMP 1; SCAN SMEAR FLAG 1
[2021-12-31 21:04] LABS: Eosinophils Absolute Auto 0.1 X10*3/uL (0.0-0.4); Eosinophils Percent Auto 0.5 % (0-4); Hematocrit 37.5 % (42.0-52.0); Imm Gran Pct Auto 0.5 % (0.0-0.4); Lymphocytes Absolute Auto 1.2 X10*3/uL (1.2-4.9); Lymphocytes Percent Auto 6.6 % (20-40); MANUAL DIFF FLAG SCAN; Mean Corpuscular HGB Conc 34.7 g/dl (31.0-36.0); Mean Corpuscular Hemoglobin 30.2 pg (27.0-33.0); Mean Corpuscular Volume 87.2 fL (80.0-98.0); Monocytes Absolute Auto 1.5 X10*3/uL (0.1-1.2); Monocytes Percent Auto 8.3 % (2-11); Neutrophils Absolute Auto 15.5 x10*3/uL (2.0-8.3); Neutrophils Percent Auto 83.9 % (45-73); Red Cell Distribution Width 11.9 % (11.0-16.0)
--- OUTSIDE RECORDS SUMMARY | 2021-12-31 21:14 | XMS_ITS | Continuity of Care Document ---
:1965 Author Organization [facility] Care Address [address] [place] [id number] Care Team Providers Name Role Phone Shell Lopez MD Primary Care Physician Encounter [facility] [id number] Date(s): 03/04/21 - 04/09/21 [facility] [address] [place] [id number] Attending Physician: Merritt Montelongo MD Admitting Physician: Merritt Montelongo MD Referring Physician: Shell Lopez MD Allergies, Adverse Reactions, Alerts Substance Reaction Severity Status aspirin Active traZODone Active Medications amoxicillin 500 mg oral tablet 1 tablet = 500 mg, By Mouth, 3 times a day, # 30 tablet, 0 Refills, Maintenance, 03/01/13 9:59:12, Capsule Start Date: 02/23/13 Stop Date: 03/11/13 Status: OrderedCogentin Tablet Refills 0, Maintenance, 03/28/19 11:08:00 EST Start Date: 03/28/19 Status: OrderedColace Clear 50 mg oral capsule 1 capsule = 50 mg, By Mouth, 2 times a day, 0 Refills, Maintenance, 03/28/19 11:08:00 EST Start Date: 03/28/19 Status: OrderedEpclusa By Mouth, Daily, 0 Refills, Maintenance, 03/28/19 11:08:00 EST Start Date: 03/28/19 Status: OrderedFlomax 0.4 mg oral capsule 0.4 mg, 1, capsule, By Mouth, Daily, Refills 0, Maintenance, 03/28/19 11:08:00 EST Start Date: 03/28/19 Status: OrderedGenvoya By Mouth, Daily, 0 Refills, Maintenance, 03/28/19 11:09:00 EST Start Date: 03/28/19 Status: OrderedInderal 20 mg oral tablet 20 mg, By Mouth, 2 times a day, Refills 0, Maintenance, 03/28/19 11:09:00 EST Start Date: 03/28/19 Status: OrderedLithium By Mouth, Refills 0, Maintenance, 03/28/19 11:09:00 EST Start Date: 03/28/19 Status: OrderedNeurontin 100 mg oral capsule 100 mg, 1, capsule, By Mouth, 3 times a day, Refills 0, Maintenance, 03/28/19 11:09:00 EST Start Date: 03/28/19 Status: OrderedNovoLog Mix 70/30 % Inj Subcutaneous Infusion, 2 times a day with meals, 0 Refills, Maintenance, 03/28/19 11:09:00 EST Start Date: 03/28/19 Status: OrderedNuLYTELY with Flavor Packs oral powder for reconstitution See Instructions, bowel preparation, # 4,000 capsule, 0 Refills, Maintenance, 03/28/19 11:27:00 EST,[facility]/pharmacy #[id number], bowel preparation, 174, cm, 03/28/19 11:04:00 EST, Height, 81, kg, 03/29/17 14:05:00 EST, Dry Weight Start Date: 03/28/19 Status: OrderedNystatin Powder Topically, 3 times a day, 0 Refills, Maintenance Start Date: 03/28/19 Status: Orderedofloxacin 0.3% otic solution 10 drops, Ear, Right, Daily, # 10 mL, 0 Refills, Maintenance, 03/01/13 9:59:09, Otic Solution Start Date: 02/24/13 Stop Date: 03/11/13 Status: OrderedPravachol 20 mg oral tablet 20 mg, 1, tablet, By Mouth, Daily, Refills 0, Maintenance, 03/28/19 11:10:00 EST Start Date: 03/28/19 Status: OrderedRisperDAL 4 mg oral tablet 1 tablet = 4 mg, By Mouth, 2 times a day, 0 Refills, Maintenance, 03/28/19 11:10:00 EST Start Date: 03/28/19 Status: Ordered Problem List Condition Effective Dates Status Health Status Informant Cirrhosis(Confirmed) 03/28/19 Active
--- OUTSIDE RECORDS SUMMARY | 2021-12-31 21:14 | XMS_ITS | Continuity of Care Document ---
:1965 Author Organization [facility] Address [address] [place] [address]- Care Team Providers Name Role Phone Jessica MCCRACKEN, Shell Kenney Primary Care Physician Encounter [facility] Date(s): 08/31/21 - 09/01/[address] [address]- Encounter Diagnosis 2019 novel coronavirus disease (COVID-19) (Final) - 08/31/21 Acute constipation (Final) - 08/31/21 Generalized weakness (Final) - 08/31/21 Discharge Disposition: A-D/C Home Attending Physician: Elias Vo MD Admitting Physician: Cee Bang DO Referring Physician: Not on Staff, Referring MD Allergies, Adverse Reactions, Alerts Substance Reaction Severity Status aspirin Active traZODone Active Immunizations Given and Recorded Vaccine Date Status Refusal Reason SARS-CoV-2 (COVID-19) mRNA BNT-162b2 vac 11/25/20 Recorde d SARS-CoV-2 (COVID-19) mRNA BNT-162b2 vac 04/15/20 Recorde d SARS-CoV-2 (COVID-19) mRNA BNT-162b2 vac 03/25/20 Recorde d tetanus/diphtheria/pertussis, acel(Tdap) 01/16/19 Recorde d tetanus-diphtheria toxoids (Td) 06/29/17 Recorded tetanus-diphtheria toxoids (Td) 07/30/14 Recorded Medications bisacodyl 10 mg rectal suppository 1 supp = 10 mg, Rectally, Daily, PRN for constipation, # 10 supp, 0 Refills, Maintenance, 09/01/21 13:04:00 EDT, Suppository, [facility], Partial fill upon patient request if the prescription is for a schedule II opioid drug. Start Date: 09/01/21 Status: OrderedCogentin Tablet 2 mg, By Mouth, 2 times a day, Refills 0, Maintenance, 03/28/19 11:08:00 EST Start Date: 03/28/19 Status: OrderedColace Clear 50 mg oral capsule 2 capsule = 100 mg, By Mouth, 2 times a day, 0 Refills, Maintenance, 03/28/19 11:08:00 EST Start Date: 03/28/19 Status: Orderedfinasteride 5 mg oral tablet 1 tablet = 5 mg, By Mouth, Daily, # 30 tablet, 0 Refills, Maintenance, 08/31/21 23:49:00 EDT, Tablet, Partial fill upon patient request if the prescription is for a schedule II opioid drug. Start Date: 08/31/21 Status: OrderedFlomax 0.4 mg oral capsule 0.4 mg, 1, capsule, By Mouth, Daily at bedtime, Refills 0, Maintenance, 03/28/19 11:08:00 EST Start Date: 03/28/19 Status: OrderedGenvoya 1 tablet, By Mouth, Daily, 0 Refills, Maintenance, 03/28/19 11:09:00 EST Start Date: 03/28/19 Status: OrderedInderal 20 mg oral tablet 20 mg, By Mouth, Daily, Refills 0, Maintenance, 03/28/19 11:09:00 EST Start Date: 03/28/19 Status: OrderedIngrezza 40 mg oral capsule 1 capsule = 40 mg, By Mouth, Daily, # 30 capsule, 0 Refills, Maintenance, 08/31/21 23:45:00 EDT, Capsule, Partial fill upon patient request if the prescription is for a schedule II opioid drug. Start Date: 08/31/21 Status: Orderedketoconazole 2% topical shampoo APPLY BY TOPICAL ROUTE 2 TIMES EVERY WEEK SHAMPOO WITH AT LEAST 3 DAYS BETWEEN EACH SHAMPOOING Start Date: 08/31/21 Status: OrderedLithium 900 mg, By Mouth, Daily in AM, Refills 0, Maintenance, 03/28/19 11:09:00 EST Start Date: 03/28/19 Status: OrderedMiraLax oral powder for reconstitution = 17 Gm, By Mouth, Daily, dissolve in water before taking, # 255 Gm, 0 Refills, Maintenance, 08/31/21 23:51:00 EDT, REC Powder, Partial fill upon patient request if the prescription is for a schedule II opioid drug. Start Date: 08/31/21 Status: Orderednaproxen 500 mg oral tablet 1 tablet = 500 mg, By Mouth, Daily, PRN for pain, # 20 tablet, 0 Refills, Maintenance, 08/31/21 23:47:00 EDT, Tablet, Partial fill upon patient request if the prescription is for a schedule II opioid drug. Start Date: 08/31/21 Status: OrderedNovoLOG Mix 70/30 subcutaneous suspension = 15 units, Subcutaneous Injection, Daily in AM, # 10 mL, 0 Refills, Maintenance, 08/31/21 23:48:00 EDT, Suspension, Partial fill upon patient request if the prescription is for a schedule II opioid drug. Start Date: 08/31/21 Status: OrderedNovoLOG Mix 70/30 subcutaneous suspension = 17 units, Subcutaneous Injection, Daily at bedtime, # 10 mL, 0 Refills, Maintenance, 08/31/21 23:48:00 EDT, Suspension, Partial fill upon patient request if the prescription is for a schedule II opioid drug. Start Date: 08/31/21 Status: Orderedomeprazole 20 mg oral enteric coated capsule 1 capsule = 20 mg, By Mouth, Daily, # 30 capsule, 0 Refills, Maintenance, 08/31/21 23:49:00 EDT, EC Capsule, Partial fill upon patient request if the prescription is for a schedule II opioid drug. Start Date: 08/31/21 Status: OrderedPravachol 20 mg oral tablet 40 mg, 2, tablet, By Mouth, Daily, Refills 0, Maintenance, 03/28/19 11:10:00 EST Start Date: 03/28/19 Status: Orderedpregabalin 100 mg oral capsule 1 capsule = 100 mg, By Mouth, 2 times a day, # 180 capsule, 0 Refills, Maintenance, 08/31/21 23:46:00 EDT, Capsule, Partial fill upon patient request if the prescription is for a schedule II opioid drug. Start Date: 08/31/21 Status: OrderedRisperDAL 4 mg oral tablet 1.5 tablet = 6 mg, By Mouth, Daily at bedtime, 0 Refills, Maintenance, 03/28/19 11:10:00 EST Start Date: 03/28/19 Status: OrderedSenna 8.6 mg oral tablet 17.2 mg, 2, tablet, By Mouth, Daily, # 25 tablet, Refills 0, Tot. Refills 0, Maintenance, 09/01/21 13:03:00 EDT, Route to Pharmacy Electronically, [facility] Tablet, Partial fill upon patient request if the prescription is for a schedule... Start Date: 09/01/21 Status: Ordered Problem List Condition Effective Dates Status Health Status Informant Cirrhosis(Confirmed) 03/28/19 Active COVID-19(Confirmed)1 09/01/21 Active HIV infection(Confirmed) Active Hepatitis C virus infection resolved Active after antiviral drug therapy(Confirmed) Schizophrenia(Confirmed) Active Type 2 diabetes mellitus(Confirmed) Active 1Problem added by Discern Expert Results Orders for Microbiology Reports Name Date Blood Culture 08/31/21 Blood Culture #2 08/31/21 Microbiology Reports TEST:Blood Culture, Second Order STATUS:Unauthenticated BODY SITE: SOURCE:Blood COLLECTED DATE/TIME:08/31/21 1:13 PMBlood Culture, Second Order SPECIMEN DESCRIPTION : BLOOD RIGHT HAND SPECIAL REQUESTS : NONE CULTURE : NO GROWTH AFTER 24 HOURS REPORT STATUS : PRELIMINARY REPORT TEST:Blood Culture STATUS:Unauthenticated BODY SITE: SOURCE:Blood COLLECTED DATE/TIME:08/31/21 12:50 PMBlood Culture SPECIMEN DESCRIPTION : BLOOD LEFT HAND SPECIAL REQUESTS : NONE CULTURE : NO GROWTH AFTER 24 HOURS REPORT STATUS : PRELIMINARY REPORT Radiology Reports Exam Date Time Procedure Performing Provider Status 08/31/21 2:30 PM Abdomen AP Jason Tran; Auth (Verified) Notes:(Abdomen AP) Reason For Exam: ConstipationRESULT: XR Abdomen AP XR Abdomen AP 1 view INDICATION/CLINICAL QUESTION: Hx of Present Illness: pt coming from long-term, staff stating he is shaky and weak, has not had a BM in 9 days, polish speaking only, pt has hx of heroin abuse has beensober since 2017, per staff pt is at baseline mentally; Reason: Constipation; Clinical Question(s): Obstruction; Special Instructions: Flat COMPARISON: None TECHNIQUE: AP view of the abdomen. FINDINGS: Stomach and small bowel loops are nondistended. There is a moderate amount of stool within the colon. No organomegaly, masses or calcifications. No acute bone findings. IMPRESSION: Moderate constipation. WSN: [id number] Ordering Physician: Albert Patterson Dictated By: Bong Hawkins MD Dictated Date/Time: 08/31/21 2:35 pm Reviewed By: Bong Hawkins MD Signed By: Bong Hawkins MD Signed Date/Time: 08/31/21 2:35 pm Transcribed By: SHUKRI Transcribed Date/Time: 08/31/21 2:34 pm Exam Date Time Procedure Performing Provider Status 08/31/21 2:30 PM Chest Portable Jason Tran; Auth (Verified) Notes:(Chest Portable) Reason For Exam: FeverRESULT: Chest Portable Chest Portable Hx of Present Illness: pt coming from long-term, staff stating he is shaky and weak, has not had a BM in 9 days, polish speaking only, pt has hx of heroin abuse has been sober since 2017, per staff pt is at baseline mentally; Reason: Fever; Clinical Question(s): Pneumonia COMPARISON: 04/30/2013. FINDINGS: LINES AND TUBES: None. LUNGS AND PLEURA: Clear lungs. Normal pulmonary vascularity. No pleural effusion. No pneumothorax. HEART, MEDIASTINUM AND ANDREW: Heart is at the upper limits of normal for size. Normal upper mediastinal and hilar contour. BONES AND SOFT TISSUES: No acute abnormality. IMPRESSION: No acute abnormality. WSN: [id number] Ordering Physician: Albert Patterson Dictated By: Bong Hawkins MD Dictated Date/Time: 08/31/21 2:34 pm Reviewed By: Bong Hawkins MD Signed By: Bong Hawkins MD Signed Date/Time: 08/31/21 2:34 pm Transcribed By: SHUKRI Transcribed Date/Time: 08/31/21 2:33 pm Vital Signs Most recent to oldest 1 2 3 [Reference Range]: Oxygen Saturation [94-100 %] 97 % 100 % 99 % (09/01/21 8:13 AM) (09/01/21 3:29 AM) (08/31/21 11: 56 PM) Pulse Rate [55-90 bpm] 85 bpm 62 bpm 72 bpm (09/01/21 8:13 AM) (09/01/21 3:29 AM) (08/31/21 11: 56 PM) Blood Pressure [90-138/55-84 91/64 mm Hg 138/74 mm Hg 111 /60 mm Hg mm Hg] (09/01/21 8:13 AM) (09/01/21 3:29 AM) (08/31/21 11: 56 PM) Respiratory Rate [16-30 18 br/min 18 br/min 18 br/mi n br/min] (09/01/21 8:13 AM) (09/01/21 3:29 AM) (08/31/21 11: 56 PM) Temperature [96.8-100.4 DegF] 98.5 DegF 98.6 DegF 98 .3 DegF (09/01/21 8:00 AM) (09/01/21 3:29 AM) (08/31/21 11: 56 PM) Mode of Delivery (Oxygen) Room air Room air Room a ir (09/01/21 8:13 AM) (09/01/21 3:29 AM) (08/31/21 11: 56 PM) Blood pressure sites Arm, right Arm, left Arm, left (09/01/21 8:13 AM) (09/01/21 3:29 AM) (08/31/21 11: 56 PM) Temperature Route Oral Oral Oral (09/01/21 8:00 AM) (09/01/21 3:29 AM) (08/31/21 11: 56 PM)
--- OUTSIDE RECORDS SUMMARY | 2021-12-31 21:14 | XMS_ITS | Continuity of Care Document ---
:1965 Author Organization [facility] Address [address] [place] [address]- Care Team Providers Name Role Phone Jessica MCCRACKEN, Shell Kenney Primary Care Physician Encounter [facility] Date(s): 09/13/21 - 09/16/[address] [address] Discharge Disposition: A-D/C Home Attending Physician: Marah Johnson MD Admitting Physician: Guillermo Haywood MD Referring Physician: Not on Staff, Referring MD [...] 0 Refills, Maintenance, 09/01/21 13:04:00 EDT, Suppository, [facility], Partial fill upon patient request [...] OrderedInderal 20 mg oral tablet 20 mg, Tablet, By Mouth, 09/16/21 9:00:00 EDT Start Date: 09/16/21 Stop Date: 09/16/21 Status: CompletedInderal 20 mg oral tablet 20 mg, By Mouth, Daily, Refills 0, Maintenance, 03/28/19 11:09:00 EST Start Date: 03/28/19 Status: Orderedketoconazole 2% topical shampoo APPLY BY [...] 09/01/21 13:03:00 EDT, Route to Pharmacy Electronically, [facility] Tablet, Partial fill upon patient request [...] for Microbiology Reports Name Date Blood Culture 09/13/21 Blood Culture #2 09/13/21 Microbiology Reports TEST:Blood Culture, Second Order STATUS:Unauthenticated BODY SITE: SOURCE:Blood COLLECTED DATE/TIME:09/13/21 12:11 PMBlood Culture, Second Order SPECIMEN DESCRIPTION : BLOOD NO SITE SPECIAL REQUESTS : NONE CULTURE : NO GROWTH 3 DAYS REPORT STATUS : PRELIMINARY REPORT TEST:Blood Culture STATUS:Unauthenticated BODY SITE: SOURCE:Blood COLLECTED DATE/TIME:09/13/21 11:53 AMBlood Culture SPECIMEN DESCRIPTION : BLOOD NO SITE SPECIAL REQUESTS : NONE CULTURE : NO GROWTH 3 DAYS REPORT STATUS : PRELIMINARY REPORT Radiology Reports Exam Date Time Procedure Performing Provider Status 09/13/21 1:05 PM Foot Min 3 Views Right Tanisha Benjamin; Auth (Verified) Notes:(Foot Min 3 Views Right) Reason For Exam: with Pain;TraumaRESULT: Foot Min 3 Views Right Foot Min 3 Views Right, 3 views HX OF PRESENT ILLNESS: pt has had increased ams, confusion, hallucinations, fpc concerned about ble wounds; Reason: Trauma; with Pain; Clinical Question(s): Fracture COMPARISON: 01/01/2014 FINDINGS: No fractures or bone lesions. Large dorsal and plantar calcaneal spurs. No arthritic changes. Normal soft tissues. IMPRESSION: No evidence of acute osseous abnormality. WSN: [id number] Ordering Physician: Ramon Olson Dictated By: Bong Velasco MD Dictated Date/Time: 09/13/21 1:15 pm Reviewed By: Bong Velasco MD Signed By: Bong Velasco MD Signed Date/Time: 09/13/21 1:15 pm Transcribed By: SHUKRI Transcribed Date/Time: 09/13/21 1:14 pm Exam Date Time Procedure Performing Provider Status 09/13/21 1:05 PM Foot Min 3 Views Left Tanisha Benjamin; Auth (Verified) Notes:(Foot Min 3 Views Left) Reason For Exam: with Pain;TraumaRESULT: Foot Min 3 Views Left Foot Min 3 Views Left, 3 views HX OF PRESENT ILLNESS: pt has had increased ams, confusion, hallucinations, fpc concerned about ble wounds; Reason: Trauma; with Pain; Clinical Question(s): Fracture COMPARISON: 12/06/2013 FINDINGS: No fractures or bone lesions. Large dorsal and plantar calcaneal spurs. Mild degenerative change at the first tarsal metatarsal joint. Normal soft tissues. IMPRESSION: No evidence of acute osseous abnormality. WSN: [id number] Ordering Physician: Ramon Olson Dictated By: Bong Velasco MD Dictated Date/Time: 09/13/21 1:12 pm Reviewed By: Bong Velasco MD Signed By: Bong Velasco MD Signed Date/Time: 09/13/21 1:12 pm Transcribed By: SHUKRI Transcribed Date/Time: 09/13/21 1:11 pm Exam Date Time Procedure Performing Provider Status 09/13/21 1:05 PM Chest 2 Views Frontal and Lat Carolina Benjamin e; Auth (Verified) Notes:(Chest 2 Views Frontal and Lat) Reason For Exam: Shortness of Breath RESULT: Chest 2 Views Frontal and Lat Chest 2 Views Frontal and Lat Hx of Present Illness: pt has had increased ams, confusion, hallucinations, fpc concerned about ble wounds; Reason: Shortness of Breath; Clinical Question(s): CHF COMPARISON: 08/31/2021. FINDINGS: LINES AND TUBES: None. LUNGS AND PLEURA: Clear lungs. Normal pulmonary vascularity. No pleural effusion. No pneumothorax. HEART, MEDIASTINUM AND ANDREW: Heart is normal in size. Normal upper mediastinal and hilar contour. BONES AND SOFT TISSUES: No acute abnormality. IMPRESSION: No acute abnormality. No interval change. WSN: [id number] Ordering Physician: Ramon Olson Dictated By: Charbel Austin MD, V Dictated Date/Time: 09/13/21 1:08 pm Reviewed By: Charbel Austin MD, V Signed By: Charbel Austin MD, V Signed Date/Time: 09/13/21 1:08 pm Transcribed By: CSB Transcribed Date/Time: 09/13/21 1:08 pm Vital Signs Most recent to oldest 1 2 3 [Reference Range]: Height 174 cm 174 cm 174 cm (09/15/21 8:50 AM) (09/15/21 7:50 AM) (09/14/21 3:44 PM) Weight 65 kg 68.7 kg 68.7 kg (09/15/21 8:50 AM) (09/13/21 9:11 PM) (09/13/21 6:00 PM) Oxygen Saturation [94-100 100 % 100 % 100 % %] (09/16/21 8:00 AM) (09/16/21 4:00 AM) (09/16/21 1:0 6 AM) Pulse Rate [55-90 bpm] 77 bpm 77 bpm 77 bpm (09/16/21 9:52 AM) (09/16/21 8:00 AM) (09/16/21 4:0 0 AM) Body Mass Index 21.47 22.69 22.69 [18.5-24.99] (09/15/21 8:50 AM) (09/13/21 9:11 PM) (09/13/21 6:00 PM) Blood Pressure 145/79 mm Hg 145/79 mm Hg 123/67 mm Hg [90-138/55-84 mm Hg] *H* *H* (09/16/21 4: 00 AM) (09/16/21 9:52 AM) (09/16/21 8:00 AM) Respiratory Rate [16-30 18 br/min 18 br/min 18 br/mi n br/min] (09/16/21 8:00 AM) (09/16/21 4:00 AM) (09/16/21 1:0 6 AM) Temperature [96.8-100.4 97.5 DegF 98.1 DegF 97.8 Deg F DegF] (09/16/21 8:00 AM) (09/16/21 4:00 AM) (09/16/21 1:0 6 AM) Liters per Minute 0 L/min (09/13/21 6:00 PM) Mode of Delivery (Oxygen) Room air Room air Room a ir (09/16/21 8:00 AM) (09/16/21 4:00 AM) (09/16/21 1:0 6 AM) Blood pressure sites Arm, right Arm, right Arm, right (09/16/21 8:00 AM) (09/16/21 4:00 AM) (09/16/21 1:0 6 AM) Temperature Route Oral Oral Oral (09/16/21 8:00 AM) (09/16/21 4:00 AM) (09/16/21 1:0 6 AM) Dry Weight 65 kg 68.7 kg 68.7 kg (09/15/21 8:50 AM) (09/13/21 9:11 PM) (09/13/21 6:00 PM) Weight Obtained Via Bed scale Patient/family stated (09/15/21 8:50 AM) (09/13/21 11:15 AM) Dry Weight Obtained Via Bed scale Patient/family stated (09/15/21 8:50 AM) (09/13/21 11:15 AM)
--- OUTSIDE RECORDS SUMMARY | 2021-12-31 21:14 | XMS_ITS | Continuity of Care Document ---
:1965 Author Organization [facility] Address [address] [place] [address]- Care Team Providers Name Role Phone Shell Lopez MD Primary Care [id number] Date(s[facility] 02/18/[facility] - 03/26/[facility] [address] [place] [id number] Attending Physician: Merritt Montelongo MD Admitting [...] 4,000 capsule, 0 Refills, Maintenance, 03/28/19 11:27:00 EST,[facility]/pharmacy #[id number], bowel preparation, 174, cm, 03/28/19 11:04:00 [...]
--- OUTSIDE RECORDS SUMMARY | 2021-12-31 21:14 | XMS_ITS | Continuity of Care Document ---
:1965 Author Organization [facility] Address [address] [place] [address]- Care Team Providers Name Role Phone Shell Lopez MD Primary Care Physician [id number] Date(s): 03/28/19 - 08/07/[address] [address] [facility] Attending Physician: Zach Ramos MD Admitting Physician: Zach Ramos MD Allergies, Adverse Reactions, Alerts Substance Reaction [...] 4,000 capsule, 0 Refills, Maintenance, 03/28/19 11:27:00 EST,[facility]/pharmacy #[id number], bowel preparation, 174, cm, [...]
--- OUTSIDE RECORDS SUMMARY | 2021-12-31 21:14 | XMS_ITS | Continuity of Care Document ---
:1965 Author Organization [facility] Address [address] [place] [address]- Care Team Providers Name Role Phone Jessica MCCRACKEN, Shell Kenney Primary Care Physician [id number] Date(s): 01/09/20 - 02/08/20 [facility] [address] [place] [id number] Allergies, Adverse Reactions, Alerts Substance Reaction Severity [...] 4,000 capsule, 0 Refills, Maintenance, 03/28/19 11:27:00 EST,[id number], bowel preparation, 174, cm, 03/28/19 11:04:00 [...]
--- OUTSIDE RECORDS SUMMARY | 2021-12-31 21:14 | XMS_ITS | Continuity of Care Document ---
:1965 Author Organization [facility] Address [address] [place] [address]- Care Team Providers Name Role Phone Jessica MCCRACKEN, Shell Kenney Primary Care Physician [id number] Date(s): 03/25/21 - 04/24/21 [facility] [address] [place] [address]- Attending Physician: Bhavya Chu Admitting Physician: Bhavya Chu Referring Physician: AdmtrBhavya Allergies, Adverse Reactions, Alerts Substance Reaction Severity [...] 4,000 capsule, 0 Refills, Maintenance, 03/28/19 11:27:00 EST,[facility]/pharmacy #[id number], bowel preparation, 174, cm, 03/28/19 11:04:00 [...]
--- OUTSIDE RECORDS SUMMARY | 2021-12-31 21:14 | XMS_ITS | Continuity of Care Document ---
:1965 Author Organization [facility] Address [address] [place] [address]- Care Team Providers Name Role Phone Jessica MCCRACKEN, Shell Kenney Primary Care Physician Encounter [facility] Date(s): 05/10/21 - 06/09/21 [facility] [address] [place] [id number] Attending Physician: Bhavya Chu Admitting Physician: AdmBhavya richard Referring Physician: AdmtrBhavya Allergies, Adverse Reactions, Alerts [...] 4,000 capsule, 0 Refills, Maintenance, 03/28/19 11:27:00 EST,[facility]/pharmacy #[id number], bowel preparation, 174, cm, 03/28/19 [...]
--- OUTSIDE RECORDS SUMMARY | 2021-12-31 21:14 | XMS_ITS | Continuity of Care Document ---
:1965 Author Organization [facility] Address [address] [place] [address]- Care Team Providers Name Role Phone Jessica MCCRACKEN, Shell Kenney Primary Care Physician [id number] Date(s): 09/30/19 - 10/30/19 [facility] [address] [place] [address]- [facility] Allergies, Adverse Reactions, Alerts Substance Reaction Severity [...]
--- OUTSIDE RECORDS SUMMARY | 2021-12-31 21:14 | XMS_ITS | Continuity of Care Document ---
:1965 Author Organization [facility] Address [address] [place] [address]- Care Team Providers Name Role Phone Jessica MCCRACKEN, Shell Kenney Primary Care Physician [facility] [facility] Date(s): 03/28/19 - 04/07/19 [facility] [address] [place] [address] [facility] Attending Physician: Bhavya Chu Admitting Physician: AdmBhavya richard Referring Physician: Admtr ArKimberly Allergies, Adverse Reactions, Alerts Substance Reaction Severity [...] 4,000 capsule, 0 Refills, Maintenance, 03/28/19 11:27:00 EST,[facility]/pharmacy #[id number], bowel preparation, 174, cm, 03/28/19 [...]
--- OUTSIDE RECORDS SUMMARY | 2021-12-31 21:14 | XMS_ITS | Continuity of Care Document ---
:1965 Author Organization [facility] Address [address] [place] [address]- Care Team Providers Name Role Phone Jessica MCCRACKEN, Shell Kenney Primary Care Physician Encounter [facility] Date(s): 03/13/20 - 04/12/20 [facility] [address] [place] [id number] Attending Physician: Bhavya Chu Admitting Physician: AdmtrBhavya Referring Physician: Admtr, Ar8 Allergies, Adverse Reactions, Alerts Substance Reaction Severity [...] 4,000 capsule, 0 Refills, Maintenance, 03/28/19 11:27:00 EST,[facility]/pharmacy #[id number], bowel preparation, 174, cm, 03/28/19 [...]
--- OUTSIDE RECORDS SUMMARY | 2021-12-31 21:14 | XMS_ITS | Continuity of Care Document ---
:1965 Author Organization [facility] Address [address] [place] [address]- Care Team Providers Name Role Phone Shell Lopez MD Primary Care Phys[id number] Date(s[facility] 02/17/21 - 03/25/[facility] [address] [place] [address] Attending Physician: Merritt Montelongo MD Admitting Physician: [...] 4,000 capsule, 0 Refills, Maintenance, 03/28/19 11:27:00 EST,[facility]/pharmacy #[id number], bowel preparation, 174, [...]
--- OUTSIDE RECORDS SUMMARY | 2021-12-31 21:14 | XMS_ITS | Continuity of Care Document ---
:1965 Author Organization [facility] Address [address] [place] [address]- Care Team Providers Name Role Phone Shell Lopez MD Primary Care Physician [id number] Date(s): 03/19/21 - 04/24/[facility] [address] [place] [id number] Attending Physician: Merritt Montelongo MD [...] 4,000 capsule, 0 Refills, Maintenance, 03/28/19 11:27:00 EST,[facility]/pharmacy #[id number], bowel preparation, 174, cm, 03/28/19 [...]
--- OUTSIDE RECORDS SUMMARY | 2021-12-31 21:14 | XMS_ITS | Continuity of Care Document ---
:1965 Author Organization [facility] Address [address] [place] [address]- Care Team Providers Name Role Phone Jessica MCCRACKEN, Shell Kenney Primary Care Physician [place] [facility] Date(s): 02/16/21 - 06/09/21 [facility] [address] [place] [id number] Attending Physician: Merritt Montelongo MD Admitting Physician: Merritt Montelongo MD Referring Physician: Merritt Montelongo MD Allergies, Adverse Reactions, Alerts Substance Reaction [...]
--- OUTSIDE RECORDS SUMMARY | 2021-12-31 21:14 | XMS_ITS | Continuity of Care Document ---
:1965 Author Organization [facility] Address [address] [place] [id number] Care Team Providers Name Role Phone Shell Lopez MD [id number] Date(s): 02/09/21 - 03/17/21 [facility] [address] [place] [id number] Attending Physician: Mariano Peres MD Admitting Physician: Mariano Peres MD Referring Physician: Shell Lopez MD Allergies, [...] 4,000 capsule, 0 Refills, Maintenance, 03/28/19 11:27:00 EST,[facility]/pharm[facility] #[id number], bowel preparation, 174, cm, 03/28/19 11:04:00 [...]
[2021-12-31 21:15] LABS: Anion Gap 14 (12-20); Blood Urea Nitrogen 18 mg/dL (9-16); Calcium 9.8 mg/dL (8.4-10.2); Carbon Dioxide 23 mmol/L (22-29); Chloride 102 mmol/L (96-108); Creatinine Clr Calc Pharmacy 56.6; Estimated Glomerular Filt Rate 55; Glucose Random 153 mg/dL (60-115); Potassium 3.5 mmol/L (3.3-5.1); Sodium 135 mmol/L (135-145)
[2021-12-31 21:23] LABS: Platelet Count 124 X10*3/uL (160-400); White Blood Count 18.5 X10*3/uL (4.8-10.8)
[2021-12-31 21:24] LABS: SLIDE REVIEW VERIFIED
[2021-12-31 21:45] LABS: Influenza A PCR NEGATIVE (Negative); Influenza B PCR NEGATIVE (Negative); Resp Syncy Virus RNA Qual PCR NEGATIVE (Negative); SARS COV2 PCR INHOUSE NEGATIVE (Negative)
[2021-12-31 22:09] LABS: Lactic Acid 0.9 mmol/L (0.5-2.0)
[2021-12-31] MEDS: 0.9 % Sodium Chloride 1,000 ML 999 ML IV (22:15)
[2021-12-31 22:19] VITALS: BP 139/76; PULSE 95; RESP 16
[2021-12-31 23:13] LABS: Appearance Urine Clear; Color Urine Yellow; Glucose Urine UA 250 mg/dL (Negative); Leukocyte Esterase Urine Negative (Negative); Nitrite Urine Negative (Negative); Specific Gravity - Urine 1.015 (1.005-1.025); UMIC TRIGGER UACC YES; Urine Blood Negative (Negative); Urine Ketones Negative (Negative); Urine Protein 30 (1+) mg/dL (Neg-Trace)
[2021-12-31 23:18] LABS: Bacteria Urine None Seen (None Seen); Hyaline Casts Urine 0-2 /LPF (0-2); RBC Urine 0-2 /HPF (0-2); Squamous Epithelial Cell Urine 0-2 /HPF (0-2); WBC Urine 0-5 /HPF (0-5)
--- NOTE | 2021-12-31 23:22 | ED_ITS ---
HPI - URI/Sore Throat General Chief Complaint: Upper Respiratory Symptoms Stated Complaint: flu like symptoms,seizure Time Seen by Provider: 12/31/21 21:15 Source: patient Mode of arrival: ambulatory Limitations: no limitations History of Present Illness HPI Narrative: Patient from halfway with history of COVID-19, diabetic foot infection sent for not feeling well had a temperature and feel sick mild cough slight congested no chest pain no significant cough or shortness of breath has chronic calluses on both feet without any significant pus discharge according to patient Related Data Home Medications Medication Instructions Recorded Confirmed benztropine 2 mg tablet 2 mg PO BID 02/16/21 10/28/21 docusate sodium 100 mg capsule 100 mg PO BID 02/16/21 10/28/21 elviteg 150 mg-cob 150 mg-emtricit 1 tab PO DAILY 02/16/21 10/28/21 200 mg-tenofo alafenam 10 mg tablet (Genvoya) insulin aspar prot-insulin aspart 52 unit subcut BEDTIME 02/16/21 10/28/21 100 unit/mL (70-30) subcutaneous pen (Novolog Mix 70-30FlexPen U-100) lithium carbonate 300 mg tablet 900 mg PO DAILY 02/16/21 10/28/21 pen needle, diabetic 32 gauge x #50 ea 02/16/21 10/28/21 (BD Viv 2nd Gen Pen Needle) pravastatin 40 mg tablet 40 mg PO BEDTIME 02/16/21 10/28/21 propranolol 20 mg tablet 20 mg PO DAILY 02/16/21 10/28/21 risperidone 3 mg tablet 6 mg PO BEDTIME 02/16/21 10/28/21 insulin aspar prot-insulin aspart 15 - 50 unit subcut DAILY 03/05/21 10/28/21 100 unit/mL (70-30) subcutaneous pen (Novolog Mix 70-30FlexPen U-100) omeprazole 20 mg capsule,delayed 1 cap PO DAILY 03/05/21 10/28/21 release mcwnsdpx-mki-aaoey acid 0.4 1 tab PO DAILY 07/27/21 10/28/21 mg-lycopene 300 mcg-lutein 250 mcg tablet (Cerovite Senior) pregabalin 100 mg capsule 1 cap PO BID 07/27/21 10/28/21 polyethylene glycol 3350 17 17 g PO DAILY 09/02/21 10/28/21 gram/dose oral powder (Gavilax) ketoconazole 2 % shampoo 1 appl topical Q7D 10/12/21 10/28/21 risperidone 2 mg tablet 1 tab PO DAILY 01/01/22 sennosides 8.6 mg tablet (senna) 2 tab PO DAILY 01/01/22 Previous Rx's Medication Instructions Recorded finasteride 5 mg tablet 5 mg PO DAILY 90 days #90 tabs 10/28/21 tamsulosin 0.4 mg capsule 0.4 mg PO BEDTIME 90 days #90 caps 10/28/21 Allergies Allergy/AdvReac Type Severity Reaction Status Date / Time acetaminophen [From TYLENOL] Allergy Unknown UNKNOWN Verified 10/28/21 09:41 aspirin [ASA] Allergy Unknown AGITATION Verified 10/28/21 09:41 trazodone [TRAZODONE] AdvReac Unknown HYPER Verified 10/28/21 09:41 Review of Systems Review of Systems: Yes all other systems are reviewed and are negative [facility] Past Medical History Medical History BPH w urinary obs/LUTS Callus of foot Chronic prostatitis Diabetic foot ulcers Enterococcal bacteremia Erectile dysfunction due to arterial insufficiency Eschar of foot Hepatitis HIV (human immunodeficiency virus infection) Open wnd foot-complicated Osteomyelitis of left foot Sepsis Urinary hesitancy Surgical History No pertinent past surgical history Family History Family History Father No problems noted. Mother No problems noted. Social History Social History Household Members: Caregiver Housing: Other Housing Other:: halfway Do you presently have visiting nurse or other home services: Yes Unable to assess alcohol history related to: Unknown Alcohol intake: former Patient Tobacco Use Status: Tobacco use Unknown Smoked in Last 30 Days: Yes Use of substances other than those prescribed or required for medical reasons: No Advance Directives: No service: No Current occupational status: unemployed Physical Exam Vital Signs: Vital Signs: Last Vital Signs Temp 99.5 F 01/01/22 07:10 Pulse 83 01/01/22 07:10 Resp 18 01/01/22 07:10 BP 118/73 01/01/22 07:10 Pulse Ox 97 01/01/22 07:10 O2 Del Method 01/01/22 07:10 BMI result Body Mass Index 21.9 Appearance: Alert. Oriented X3. No acute distress. Eyes: PERRLA, No Nystagmus ENT: Pharynx normal. Oral Mucosa moist clear rhinorrhea sinuses nontender Neck: Normal inspection. Neck supple. CVS: Normal heart rate and rhythm. Pulses normal. Respiratory: No respiratory distress. Equal air entry bilateral, no wheezing/rales/rhonchi Abdomen: Soft and nontender. Bowel sounds are present, no mass palpable, no CVA tenderness Skin: Skin warm and dry. Normal skin color. Normal skin turgor. Extremities: No lower extremity edema. No calf tenderness calluses at base of both greater toe slight discharge from the right toe with foul-smelling soaked socks Neuro: Oriented X 3. No motor deficit. No sensory deficit.No cerebellar signs , cranial nerves II-XII intact Extrem: Other: Medications Administered Discontinued Medications Generic Name Dose Route Start Last Admin Trade Name Freq PRN Reason Stop Dose Admin Sodium Chloride 1,000 mls @ 999 mls/hr 12/31/21 21:34 12/31/21 23:50 Ns IV 12/31/21 22:34 Infused .Q1H1M ONE Infusion Vancomycin HCl 1,000 mg/ 270 mls @ 270 mls/hr 01/01/22 00:59 01/01/22 03:35 Sodium Chloride IV 01/01/22 01:58 Infused ONCE ONE Infusion Piperacillin Sod/Tazobactam 50 mls @ 100 mls/hr 01/01/22 01:01 01/01/22 02:16 Sod 3.375 gm/ Sodium Chloride IV 01/01/22 01:30 Infused ONCE ONE Infusion Ketorolac Tromethamine 30 mg 01/01/22 00:47 01/01/22 00:53 Ketorolac Tromethamine 30 Mg/Ml Vial IVPUSH 01/01/22 00:48 30 mg ONCE ONE Administration MDM - URI/Sore Throat MDM Narrative Medical decision making narrative: Patient leukocytosis with diabetes with chronic calluses bilateral feet with fall smelling pus discharge from the right 1 x-ray negative for bony erosion but as patient had leukocytosis will admit patient for IV antibiotic for diabetic foot has elevated sed rate and CRP may need MRI to rule out osteomyelitis patient had normal lactic acid level Lab Data Attestation: I reviewed the patient's lab results. Result diagrams: 12/31/21 20:49 12/31/21 20:49 Labs: Lab Results 12/31/21 12/31/21 12/31/21 Range/Units 20:49 20:49 20:50 WBC 18.5 H (4.8-10.8) X10*3/uL RBC 4.30 L (4.60-5.80) X10*6/uL Hgb 13.0 L (14.0-18.0) g/dl Hct 37.5 L (42.0-52.0) % MCV 87.2 (80.0-98.0) fL MCH 30.2 (27.0-33.0) pg MCHC 34.7 (31.0-36.0) g/dl RDW 11.9 (11.0-16.0) % Plt Count 124 L (160-400) X10*3/uL MPV 11.0 (9.4-12.4) fL Immature Gran % (Auto) 0.5 H (0.0-0.4) % Neut % (Auto) 83.9 H (45-73) % Lymph % (Auto) 6.6 L (20-40) % Lipscomb % (Auto) 8.3 (2-11) % Eos % (Auto) 0.5 (0-4) % Baso % (Auto) 0.2 (0-2) % Lymph # (Auto) 1.2 (1.2-4.9) X10*3/uL Lipscomb # (Auto) 1.5 H (0.1-1.2) X10*3/uL Eos # (Auto) 0.1 (0.0-0.4) X10*3/uL Baso # (Auto) 0.0 (0.0-0.2) X10*3/uL Abs Immat Gran (auto) 0.10 H (0.00-0.03) X10*3/uL Absolute Neuts (auto) 15.5 H (2.0-8.3) x10*3/uL Absolute Nucleated RBC 0.000 (0.0-0.012) X10*3/uL Nucleated RBC % (auto) 0.0 (0.0-0.2) /100WBC Smear Tech's Comments VERIFIED Sodium 135 (135-145) mmol/L Potassium 3.5 (3.3-5.1) mmol/L Chloride 102 (96-108) mmol/L Carbon Dioxide 23 (22-29) mmol/L Anion Gap 14 (12-20) BUN 18 H (9-16) mg/dL Creatinine 1.33 (0.5-1.4) mg/dL Estim Creat Clear Calc 56.6 Estimated GFR 55 Random Glucose 153 H (60-115) mg/dL Lactic Acid (0.5-2.0) mmol/L Calcium 9.8 D (8.4-10.2) mg/dL Urine Color Urine Appearance Urine pH (5.0-9.0) Ur Specific [place] (1.005-1.025) Urine Protein (Neg-Trace) mg/dL Urine Glucose (UA) (Negative) mg/dL Urine Ketones (Negative) mg/dL Urine Blood (Negative) Urine Nitrite (Negative) Ur Leukocyte Esterase (Negative) Urine RBC (0-2) /HPF Urine WBC (0-5) /HPF Ur Squamous Epith Cells (0-2) /HPF Urine Bacteria (None Seen) Hyaline Casts (0-2) /LPF Influenza Type A (PCR) NEGATIVE (Negative) Influenza Type B (PCR) NEGATIVE (Negative) RSV RNA Qual (PCR) NEGATIVE (Negative) SARS-CoV-2 RNA (RT-PCR) NEGATIVE (Negative) 12/31/21 12/31/21 Range/Units 21:49 23:05 WBC (4.8-10.8) X10*3/uL RBC (4.60-5.80) X10*6/uL Hgb (14.0-18.0) g/dl Hct (42.0-52.0) % MCV (80.0-98.0) fL MCH (27.0-33.0) pg MCHC (31.0-36.0) g/dl RDW (11.0-16.0) % Plt Count (160-400) X10*3/uL MPV (9.4-12.4) fL Immature Gran % (Auto) (0.0-0.4) % Neut % (Auto) (45-73) % Lymph % (Auto) (20-40) % Lipscomb % (Auto) (2-11) % Eos % (Auto) (0-4) % Baso % (Auto) (0-2) % Lymph # (Auto) (1.2-4.9) X10*3/uL [place]comb # (Auto) (0.1-1.2) X10*3/uL Eos # (Auto) (0.0-0.4) X10*3/uL Baso # (Auto) (0.0-0.2) X10*3/uL Abs Immat Gran (auto) (0.00-0.03) X10*3/uL Absolute Neuts (auto) (2.0-8.3) x10*3/uL Absolute Nucleated RBC (0.0-0.012) X10*3/uL Nucleated RBC % (auto) (0.0-0.2) /100WBC Smear Tech's Comments Sodium (135-145) mmol/L Potassium (3.3-5.1) mmol/L Chloride (96-108) mmol/L Carbon Dioxide (22-29) mmol/L Anion Gap (12-20) BUN (9-16) mg/dL Creatinine (0.5-1.4) mg/dL Estim Creat Clear Calc Estimated GFR Random Glucose (60-115) mg/dL Lactic Acid 0.9 (0.5-2.0) mmol/L Calcium (8.4-10.2) mg/dL Urine Color Yellow Urine Appearance Clear Urine pH 6.0 (5.0-9.0) Ur Specific [place] 1.015 (1.005-1.025) Urine Protein 30 (1+) H (Neg-Trace) mg/dL Urine Glucose (UA) 250 H (Negative) mg/dL Urine Ketones Negative (Negative) mg/dL Urine Blood Negative (Negative) Urine Nitrite Negative (Negative) Ur Leukocyte Esterase Negative (Negative) Urine RBC 0-2 (0-2) /HPF Urine WBC 0-5 (0-5) /HPF Ur Squamous Epith Cells 0-2 (0-2) /HPF Urine Bacteria None Seen (None Seen) Hyaline Casts 0-2 (0-2) /LPF Influenza Type A (PCR) (Negative) Influenza Type B (PCR) (Negative) RSV RNA Qual (PCR) (Negative) SARS-CoV-2 RNA (RT-PCR) (Negative) Discharge Plan Discharge Clinical Impression: Diabetic foot infection Patient Disposition: Admitted As Inpatient
[2022-01-01] VITALS (10 sets, daily range): BP systolic 97–127; BP diastolic 62–78; PULSE 82–99; RESP 16–20; TEMP 36.4–38.8; O2SAT 89–99
[2022-01-01] MEDS: Ketorolac Tromethamine 30 MG/ML VIAL IVPUSH (00:53)
[2022-01-01] MEDS: Piperacillin Sodium/Tazobactam 3.375 GM in 0.9 % Sodium Chloride 50 ML IV (01:26)
[2022-01-01] MEDS: vancomycin HCL 1,000 MG in 0.9 % Sodium Chloride 250 ML 270 MG IV (02:15)
--- NOTE | 2022-01-01 03:05 | PC.NURSE ---
report given to BI Taylor
--- NOTE | 2022-01-01 05:41 | PM.IMHP ---
History of Present Illness Date of Service: 01/01/22 Chief Complaint: flu like symptoms 56-year-old male with past medical history of chronic prostatitis, diabetic foot ulcer, history of HIV, history of hepatitis, as well as BPH presents to the hospital from long term with fever, and generally not feeling well. There is also report of flu-like symptoms. Patient is not cooperating, not responding to my questions. Patient was talking to the ED physician but when I went to asking questions he has his eyes closed. He is in no distress. Unable to obtain review of system. According to the EMR patient has history of diabetic foot infections, and denied cough, shortness of breath to the ED physician. He has chronic calluses on both the and denied any discharge. On arrival to the ED patient had a temperature of 102 degrees other vitals normal Labs are significant for WBC count of 18.5, hemoglobin 13, hematocrit 37.5, ESR 63, CRP of 13.7, UA negative, Bilateral foot x-ray shows soft tissue gas at the plantar aspect of the right forefoot with soft tissue irregularity, and soft tissue irregularity at the lateral aspect of the left foot at the level of the 5th metatarsophalangeal joint Patient's started on IV antibiotics and will be admitted for further management Review of Systems Review of Systems: Yes all other systems are reviewed and are negative [facility] Medical History BPH w urinary obs/LUTS Callus of foot Chronic prostatitis Diabetic foot ulcers Enterococcal bacteremia Erectile dysfunction due to arterial insufficiency Eschar of foot Hepatitis HIV (human immunodeficiency virus infection) Open wnd foot-complicated Osteomyelitis of left foot Sepsis Urinary hesitancy Family History Father No problems noted. Mother No problems noted. Surgical History No pertinent past surgical history Social History Household Members: Caregiver Housing: Other Housing Other:: fpc Do you presently have visiting nurse or other home services: Yes Unable to assess alcohol history related to: Unknown Alcohol intake: former Patient Tobacco Use Status: Tobacco use Unknown Smoked in Last 30 Days: Yes Use of substances other than those prescribed or required for medical reasons: No Advance Directives: No service: No Current occupational status: unemployed Meds Allergies Allergy/AdvReac Type Severity Reaction Status Date / Time acetaminophen [From TYLENOL] Allergy Unknown UNKNOWN Verified 10/28/21 09:41 aspirin [ASA] Allergy Unknown AGITATION Verified 10/28/21 09:41 trazodone [TRAZODONE] AdvReac Unknown HYPER Verified 10/28/21 09:41 Active Medications: Current Medications Docusate Sodium (Docusate Sodium 100 Mg Capsule) 100 mg PO DAILY PRN PRN Reason: Constipation Heparin Sodium (Porcine) (Heparin Sodium,Porcine 5,000 Unit/Ml Vial) 5,000 unit SUBCUT Q12H [place] Vancomycin HCl 1,250 mg/ (Sodium Chloride) 250 mls @ 166.667 mls/hr IV Q12H [facility] Cefepime HCl 2 gm/ Sodium (Chloride) 50 mls @ 100 mls/hr IV Q8H [facility] Ondansetron HCl (Ondansetron Hcl 4 Mg/2 Ml Vial) 4 mg IVPUSH Q8H PRN PRN Reason: Nausea and Vomiting Pharmacy Consult (Consult Rx Vancomycin Dosing) 1 each MISCELLANE DAILY PRN PRN Reason: Consult order Pharmacy Consult (Consult Rx Vancomycin Dosing) 1 each MISCELLANE DAILY PRN PRN Reason: Consult order Sodium Chloride (0.9 % Sodium Chloride Flush 3 Ml Syringe) 3 ml IVFLUSH QSHIFT [facility] Home Medications Medication Instructions Recorded Confirmed Last Taken Type benztropine 2 mg tablet 2 mg PO BID 02/16/21 10/28/21 Unknown History docusate sodium 100 mg capsule 100 mg PO BID 02/16/21 10/28/21 Unknown History elviteg 150 mg-cob 150 mg-emtricit 1 tab PO DAILY 02/16/21 10/28/21 Unknown History 200 mg-tenofo alafenam 10 mg tablet (Genvoya) lithium carbonate 300 mg tablet 900 mg PO DAILY 02/16/21 10/28/21 Unknown History pravastatin 40 mg tablet 40 mg PO BEDTIME 02/16/21 10/28/21 Unknown History propranolol 20 mg tablet 20 mg PO DAILY 02/16/21 10/28/21 Unknown History risperidone 3 mg tablet 6 mg PO BEDTIME 02/16/21 10/28/21 Unknown History insulin aspar prot-insulin aspart 15 - 50 unit subcut DAILY 03/05/21 10/28/21 Unknown History 100 unit/mL (70-30) subcutaneous pen (Novolog Mix 70-30FlexPen U-100) omeprazole 20 mg capsule,delayed 1 cap PO DAILY 03/05/21 10/28/21 Unknown History release bkwencxg-ajf-rxssf acid 0.4 1 tab PO DAILY 07/27/21 10/28/21 Unknown History mg-lycopene 300 mcg-lutein 250 mcg tablet (Cerovite Senior) pregabalin 100 mg capsule 1 cap PO BID 07/27/21 10/28/21 Unknown History polyethylene glycol 3350 17 17 g PO DAILY 09/02/21 10/28/21 Unknown History gram/dose oral powder (Gavilax) ketoconazole 2 % shampoo 1 appl topical Q7D 10/12/21 10/28/21 Unknown History glucose 4 gram chewable tablet 4 g PO Q15M PRN Hypoglycemia 01/01/22 01/01/22 Unknown History insulin aspar prot-insulin aspart 17 unit subcut DAILY@2100 01/01/22 01/01/22 Unknown History 100 unit/mL (70-30) subcutaneous pen (Novolog Mix 70-30FlexPen U-100) lactulose 10 gram/15 mL oral 10 g PO DAILY PRN Constipation 01/01/22 01/01/22 Unknown History solution loperamide 2 mg capsule 2 mg PO QID PRN Diarrhea 01/01/22 01/01/22 Unknown History naproxen 500 mg tablet 500 mg PO BID PRN Pain 01/01/22 01/01/22 Unknown History risperidone 2 mg tablet 1 tab PO DAILY 01/01/22 Unknown History sennosides 8.6 mg tablet (senna) 2 tab PO DAILY 01/01/22 Unknown History Physical Exam Vital Signs and Narrative: Vital Signs: Last Vital Signs Temp 98.9 F 01/01/22 05:30 Pulse 88 01/01/22 05:30 Resp 19 01/01/22 05:30 BP 107/64 01/01/22 05:30 Pulse Ox 97 01/01/22 05:30 O2 Del Method 01/01/22 05:30 BMI result Body Mass Index 21.9 Results Labs CBC and Chem 7: 12/31/21 20:49 12/31/21 20:49 Labs: Laboratory Results - last 24 hr 12/31/21 12/31/21 12/31/21 20:49 20:49 20:50 MCV 87.2 MCH 30.2 MCHC 34.7 RDW 11.9 Plt Count 124 L MPV 11.0 Immature Gran % (Auto) 0.5 H Neut % (Auto) 83.9 H Lymph % (Auto) 6.6 L [place] % (Auto) 8.3 Eos % (Auto) 0.5 Baso % (Auto) 0.2 Lymph # (Auto) 1.2 [place] # (Auto) 1.5 H Eos # (Auto) 0.1 Baso # (Auto) 0.0 Abs Immat Gran (auto) 0.10 H Absolute Neuts (auto) 15.5 H Absolute Nucleated RBC 0.000 Nucleated RBC % (auto) 0.0 Smear Tech's Comments VERIFIED Anion Gap 14 Estim Creat Clear Calc 56.6 Estimated GFR 55 Random Glucose 153 H Lactic Acid Calcium 9.8 D Urine Color Urine Appearance Urine pH Ur Specific [place] Urine Protein Urine Glucose (UA) Urine Ketones Urine Blood Urine Nitrite Ur Leukocyte Esterase Urine RBC Urine WBC Ur Squamous Epith Cells Urine Bacteria Hyaline Casts Influenza Type A (PCR) NEGATIVE Influenza Type B (PCR) NEGATIVE RSV RNA Qual (PCR) NEGATIVE SARS-CoV-2 RNA (RT-PCR) NEGATIVE 12/31/21 12/31/21 21:49 23:05 MCV MCH MCHC RDW Plt Count MPV Immature Gran % (Auto) Neut % (Auto) Lymph % (Auto) [place] % (Auto) Eos % (Auto) Baso % (Auto) Lymph # (Auto) [place] # (Auto) Eos # (Auto) Baso # (Auto) Abs Immat Gran (auto) Absolute Neuts (auto) Absolute Nucleated RBC Nucleated RBC % (auto) Smear Tech's Comments Anion Gap Estim Creat Clear Calc Estimated GFR Random Glucose Lactic Acid 0.9 Calcium Urine Color Yellow Urine Appearance Clear Urine pH 6.0 Ur Specific [place] 1.015 Urine Protein 30 (1+) H Urine Glucose (UA) 250 H Urine Ketones Negative Urine Blood Negative Urine Nitrite Negative Ur Leukocyte Esterase Negative Urine RBC 0-2 Urine WBC 0-5 Ur Squamous Epith Cells 0-2 Urine Bacteria None Seen Hyaline Casts 0-2 Influenza Type A (PCR) Influenza Type B (PCR) RSV RNA Qual (PCR) SARS-CoV-2 RNA (RT-PCR) Imaging Radiologist's Impressions: Impressions Chest X-Ray 12/31/21 21:44 IMPRESSION: No acute intrathoracic disease. Foot X-Ray 01/01/22 02:30 IMPRESSION: 1. Soft tissue gas at the plantar aspect of the right forefoot with soft tissue irregularity. No osseous erosions are seen. 2. Soft tissue irregularity at the lateral aspect of the left foot at the level of the fifth metatarsophalangeal joint. No osseous erosion. Foot X-Ray 01/01/22 02:30 IMPRESSION: 1. Soft tissue gas at the plantar aspect of the right forefoot with soft tissue irregularity. No osseous erosions are seen. 2. Soft tissue irregularity at the lateral aspect of the left foot at the level of the fifth metatarsophalangeal joint. No osseous erosion. Assessment and Plan (1) Sepsis: Status: Acute (2) Elevated erythrocyte sedimentation rate: Status: Acute (3) Elevated C-reactive protein (CRP): Status: Acute (4) Diabetic foot infection: Status: Acute Plan 56-year-old male with past medical history of diabetes and history of diabetic foot infection presents to the hospital with fever, Found to have sepsis # Sepsis - febrile, leukocytosis, normal lactic acid - possibly secondary to foot infection - has elevated ESR and CRP - follow cultures - MRI ordered - Infectious Disease consulted # bilateral foot wounds - no drainages, no erythema, has irregularity on Xray on feet - elevated ESR and CRP - will tx with IV abx - follow cultures # DM - LDSSI - Diabetic diet - continue baseline insulin # HIV - continue Genvoya DVT ppx: Heparin subq Given pt requirement for IV abx patient will require minimal to night inpatient hospital stay for further management and monitoring Quality Stroke Does the patient have a stroke diagnosis?: No VTE Prior VTE?: No VTE Risk Level:: Medical - moderate - high VTE Device Contraindication: Treatment Not Indicated VTE Drug Contraindication: N/A - Med Ordered
[2022-01-01 07:23] LABS: Erythrocyte Sedimentation Rate 63 MM/HR (0-15)
[2022-01-01 07:28] LABS: Glucose, Whole Blood 269 mg/dL (60-115)
--- NOTE | 2022-01-01 08:29 | PHA.MEDREC ---
Pharmacy Consult ? Medication Reconciliation Pharmacy has completed the medication reconciliation. Med rec completed using list from long-term. The individual at long-term was unsure of last dose taken and patient is not able to communicate that information.
[2022-01-01 08:52] LABS: Creatinine Clr Calc Pharmacy 58.3; Estimated Glomerular Filt Rate 57
[2022-01-01] MEDS: cefEPime HCl 2 GM in 0.9 % Sodium Chloride 50 ML IV ×2 (09:18→21:00)
[2022-01-01] MEDS: Heparin Sodium,Porcine 5,000 UNIT/ML VIAL 5000 UNIT SUBCUT ×2 (09:18→19:44)
[2022-01-01] MEDS: 0.9 % Sodium Chloride Flush 3 ML SYRINGE IVFLUSH ×3 (09:19→22:03)
--- NOTE | 2022-01-01 09:42 | PC.NURSE ---
patient assessed with use of coroner/medical examiner , primary language [place] . A/Ox3 . maribel . heart rate regular at 77 beats per minute . breathing even and unlabored , lungs clear throughout . skin is dry and warm . feet has bilateral diabetic ulcers that patient reports 0 out of 10 pain level . abdomen soft not tender , positive bowel sounds throughout . patient is putting out clear yellow urine with use of urinal at bedside . patient aware of plan of care.
--- NOTE | 2022-01-01 10:44 | PHA.PROG ---
Admission Date/Time: January 01, 2022 05:38 Indication: Bone & Joint, Sepsis Weight in k.317 kg Adjusted body weight in K.16 kg [place] body weight in K.4 kg Obesity Dosing Indication % IBW: N/A Serum Creatinine - Last 168 Hours 12/31/21 01/01/22 20:49 07:44 Creatinine 1.33 1.29 Estimated CrCl and GFR - Last 168 Hours 12/31/21 01/01/22 20:49 07:44 Estim Creat Clear Calc 56.6 58.3 Estimated GFR 55 57 Vancomycin Loading Dose: N/A Current Vancomycin Dosing Regimen: 1500 mg Q24H Date and Time for next Vancomycin Level to be drawn: 01/03 @ 1900 Pharmacist Comments on Vancomycin Plan: Patient received a one time dose of vancomycin 1000 mg (15mg/kg). Since this is not a adequate loading dose, will start maintenance dose in 18 hours instead of 24 hours. Maintenance dose vancomycin 1500 mg Q24H scheduled to start 01/01 @ 2100. Expected AUC 576 with a trough of 16.4. Trough to be drawn prior to 4th dose Pharmacy to monitor renal function daily. Agustina Hayes, Cleo Vancomycin dosing will take advantage of [employer] as a clinical decision support tool that uses Bayesian modeling to calculate individual patient's pharmacokinetic parameters and forecast the patient's drug concentration time course with the target goal AUC 24 range of 400 - 600 mg/L/hr.
[2022-01-01] MEDS: Propranolol HCL 20 MG TABLET PO (10:48)
[2022-01-01] MEDS: polyethylene glycoL 3350 17 GM POWD.PACK PO (10:48)
[2022-01-01] MEDS: risperiDONE 2 MG TABLET PO (10:49)
[2022-01-01] MEDS: Multivitamin TABLET 1 TAB PO (10:49)
[2022-01-01] MEDS: Lithium Carbonate 300 MG CAPSULE 900 MG PO (10:49)
[2022-01-01] MEDS: Sennosides 8.6 MG TABLET 17.2 MG PO (10:49)
[2022-01-01] MEDS: Docusate Sodium 100 MG CAPSULE PO ×2 (10:49→21:51)
[2022-01-01] MEDS: Pregabalin 100 MG CAPSULE PO ×2 (10:49→21:51)
[2022-01-01] MEDS: Finasteride 5 MG TABLET PO (10:50)
[2022-01-01] MEDS: Insulin Glargine,Hum.rec.anlog 100 UNIT/ML 10 ML VIAL 15 UNIT SUBCUT (10:50)
--- NOTE | 2022-01-01 11:26 | P.PNIM_ITS ---
Subjective Subjective Date of Service: 01/01/22 Interval History: cc: fever interval history: feeling better Cardiovascular Cardiovascular: Reports no additional cardiovascular complaints Respiratory Respiratory: Reports no additional respiratory complaints Physical Exam Vital Signs: Vital Signs: Last Vital Signs Temp 99.5 F 01/01/22 07:10 Pulse 83 01/01/22 07:10 Resp 18 01/01/22 07:10 BP 118/73 01/01/22 07:10 Pulse Ox 97 01/01/22 07:10 O2 Del Method 01/01/22 07:10 BMI result Body Mass Index 21.9 General: AO X 3, no acute distress Resp: CTA bilateral, no accessory muscles used CVS: S1,S2,RRR GI: soft, non tender, non distended Neuro: motor grossly intact, alert Psych: appropriate affect, appropriate insight bilateral plantar foot ulcers Objective Data Active Medications Benztropine Mesylate (Benztropine Mesylate 1 Mg Tablet) 2 mg PO BID [facility] Dextrose (Dextrose 50 % 25 Gm/50 Ml Syringe) 25 gm IVPUSH Q15M PRN; Protocol PRN Reason: per Hypoglycemia Standing Ord. Docusate Sodium (Docusate Sodium 100 Mg Capsule) 100 mg PO DAILY PRN PRN Reason: Constipation Docusate Sodium (Docusate Sodium 100 Mg Capsule) 100 mg PO BID [facility] Last Admin: 01/01/22 10:49 Dose: 100 mg Documented By: RACHEL Finasteride (Finasteride 5 Mg Tablet) 5 mg PO DAILY [facility] Last Admin: 01/01/22 10:50 Dose: 5 mg Documented By: RACHEL Glucose (Glucose Gel 15 Gm Gel..Gram.) 15 gm PO Q15M PRN; Protocol PRN Reason: per Hypoglycemia Standing Ord. Heparin Sodium (Porcine) (Heparin Sodium,Porcine 5,000 Unit/Ml Vial) 5,000 unit SUBCUT Q12H [facility] Last Admin: 01/01/22 09:18 Dose: 5,000 unit Documented By: RACHEL Cefepime HCl 2 gm/ Sodium (Chloride) 50 mls @ 100 mls/hr IV Q12H [facility] Last Infusion: 01/01/22 09:52 Dose: 0 mls/hr Documented By: RACHEL Vancomycin HCl 1,500 mg/ (Sodium Chloride) 500 mls @ 333.333 mls/hr IV Q24H [facility] Insulin Glargine (Insulin Glargine,Hum.Rec.Anlog 100 Unit/Ml 10 Ml Vial) 15 unit SUBCUT DAILY [facility] Last Admin: 01/01/22 10:50 Dose: 15 unit Documented By: RACHEL Insulin Human Lispro (Insulin Lispro 100 Unit/Ml 3 Ml Vial) 0 unit SUBCUT QIDACHS [facility]; Protocol Ketoconazole (Ketoconazole 2 % Shampoo 120 Ml Btl) 1 appl TOPICAL Mo [facility]; Protocol Lactulose (Lactulose 20 Gm/30 Ml Solution) 10 gm PO DAILY PRN PRN Reason: Constipation [place] Carbonate ([place] Carbonate 300 Mg Capsule) 900 mg PO DAILY [facility] Last Admin: 01/01/22 10:49 Dose: 900 mg Documented By: RACHEL Loperamide HCl (Loperamide Hcl 2 Mg Capsule) 2 mg PO QID PRN PRN Reason: Diarrhea Multivitamins/Vitamin C (Multivitamin Tablet) 1 tab PO DAILY [facility] Last Admin: 01/01/22 10:49 Dose: 1 tab Documented By: RACHEL Non-Formulary Medication (Genvoya) 1 tab PO DAILY [facility] Omeprazole (Omeprazole 20 Mg Capsule.Dr) 20 mg PO DAILY@0630 [facility] Ondansetron HCl (Ondansetron Hcl 4 Mg/2 Ml Vial) 4 mg IVPUSH Q8H PRN PRN Reason: Nausea and Vomiting Pharmacy Consult (Consult Rx Vancomycin Dosing) 1 each MISCELLANE DAILY PRN PRN Reason: Consult order Pharmacy Consult (Consult Rx Perform Med Rec) 1 each MISCELLANE ONCE PRN PRN Reason: Consult order Polyethylene Glycol (Polyethylene Glycol 3350 17 Gm Powd.Pack) 17 gm PO DAILY [facility] Last Admin: 01/01/22 10:48 Dose: 17 gm Documented By: RACHEL Pravastatin Sodium (Pravastatin Sodium 40 Mg Tablet) 40 mg PO BEDTIME [facility] Pregabalin (Pregabalin 100 Mg Capsule) 100 mg PO BID [facility] Last Admin: 01/01/22 10:49 Dose: 100 mg Documented By: RACHEL Propranolol HCl (Propranolol Hcl 20 Mg Tablet) 20 mg PO DAILY [facility]; Protocol Last Admin: 01/01/22 10:48 Dose: 20 mg Documented By: RACHEL Risperidone (Risperidone 2 Mg Tablet) 2 mg PO DAILY@0900 [facility] Last Admin: 01/01/22 10:49 Dose: 2 mg Documented By: RACHEL Risperidone (Risperidone 3 Mg Tablet) 6 mg PO BEDTIME [facility] Senna (Sennosides 8.6 Mg Tablet) 17.2 mg PO DAILY@0900 [facility] Last Admin: 01/01/22 10:49 Dose: 17.2 mg Documented By: RACHEL Sodium Chloride (0.9 % Sodium Chloride Flush 3 Ml Syringe) 3 ml IVFLUSH QSHIFT [facility] Last Admin: 01/01/22 09:19 Dose: 3 ml Documented By: RACHEL Tamsulosin HCl (Tamsulosin Hcl 0.4 Mg Capsule) 0.4 mg PO BEDTIME [facility] Labs CBC & Chem 7: 12/31/21 20:49 01/01/22 07:44 Labs: Laboratory Results - last 24 hr 12/31/21 12/31/21 12/31/21 20:49 20:49 20:50 MCV 87.2 MCH 30.2 MCHC 34.7 RDW 11.9 Plt Count 124 L MPV 11.0 Immature Gran % (Auto) 0.5 H Neut % (Auto) 83.9 H Lymph % (Auto) 6.6 L [place] % (Auto) 8.3 Eos % (Auto) 0.5 Baso % (Auto) 0.2 Lymph # (Auto) 1.2 [place] # (Auto) 1.5 H Eos # (Auto) 0.1 Baso # (Auto) 0.0 Abs Immat Gran (auto) 0.10 H Absolute Neuts (auto) 15.5 H Absolute Nucleated RBC 0.000 Nucleated RBC % (auto) 0.0 Smear Tech's Comments VERIFIED ESR Anion Gap 14 Estim Creat Clear Calc 56.6 Estimated GFR 55 POC Glucose Random Glucose 153 H Lactic Acid Calcium 9.8 D C-Reactive Protein Urine Color Urine Appearance Urine pH Ur Specific [place] Urine Protein Urine Glucose (UA) Urine Ketones Urine Blood Urine Nitrite Ur Leukocyte Esterase Urine RBC Urine WBC Ur Squamous Epith Cells Urine Bacteria Hyaline Casts Influenza Type A (PCR) NEGATIVE Influenza Type B (PCR) NEGATIVE RSV RNA Qual (PCR) NEGATIVE SARS-CoV-2 RNA (RT-PCR) NEGATIVE 12/31/21 12/31/21 01/01/22 21:49 23:05 06:06 MCV MCH MCHC RDW Plt Count MPV Immature Gran % (Auto) Neut % (Auto) Lymph % (Auto) [place] % (Auto) Eos % (Auto) Baso % (Auto) Lymph # (Auto) [place] # (Auto) Eos # (Auto) Baso # (Auto) Abs Immat Gran (auto) Absolute Neuts (auto) Absolute Nucleated RBC Nucleated RBC % (auto) Smear Tech's Comments ESR 63 H Anion Gap Estim Creat Clear Calc Estimated GFR POC Glucose Random Glucose Lactic Acid 0.9 Calcium C-Reactive Protein Urine Color Yellow Urine Appearance Clear Urine pH 6.0 Ur Specific [place] 1.015 Urine Protein 30 (1+) H Urine Glucose (UA) 250 H Urine Ketones Negative Urine Blood Negative Urine Nitrite Negative Ur Leukocyte Esterase Negative Urine RBC 0-2 Urine WBC 0-5 Ur Squamous Epith Cells 0-2 Urine Bacteria None Seen Hyaline Casts 0-2 Influenza Type A (PCR) Influenza Type B (PCR) RSV RNA Qual (PCR) SARS-CoV-2 RNA (RT-PCR) 01/01/22 01/01/22 01/01/22 06:06 07:22 07:44 MCV MCH MCHC RDW Plt Count MPV Immature Gran % (Auto) Neut % (Auto) Lymph % (Auto) [place] % (Auto) Eos % (Auto) Baso % (Auto) Lymph # (Auto) [place] # (Auto) Eos # (Auto) Baso # (Auto) Abs Immat Gran (auto) Absolute Neuts (auto) Absolute Nucleated RBC Nucleated RBC % (auto) Smear Tech's Comments ESR Anion Gap Estim Creat Clear Calc 58.3 Estimated GFR 57 POC Glucose 269 H Random Glucose Lactic Acid Calcium C-Reactive Protein 13.70 H Urine Color Urine Appearance Urine pH Ur Specific [place] Urine Protein Urine Glucose (UA) Urine Ketones Urine Blood Urine Nitrite Ur Leukocyte Esterase Urine RBC Urine WBC Ur Squamous Epith Cells Urine Bacteria Hyaline Casts Influenza Type A (PCR) Influenza Type B (PCR) RSV RNA Qual (PCR) SARS-CoV-2 RNA (RT-PCR) Assessment and Plan (1) Sepsis: Status: Acute Plan 56-year-old male with past medical history of diabetes and history of diabetic foot infection presents to the hospital with fever, Found to have sepsis Sepsis possible due to bilateral diabetic foot ulcers continue vanc, cefepime follow up MRI, ID cultures DM inuslin monitor pocs HIV genvoya DVT ppx: Heparin subq full code reason for continued hospitalization: awatiing defervesence Quality Stroke Does the patient have a stroke diagnosis?: No VTE Prior VTE?: No VTE Risk Level:: Medical - moderate - high VTE Device Contraindication: Treatment Not Indicated VTE Drug Contraindication: N/A - Med Ordered
[2022-01-01 11:45] LABS: Glucose, Whole Blood 341 mg/dL (60-115)
[2022-01-01] MEDS: Insulin Lispro 100 UNIT/ML 3 ML VIAL SUBCUT ×3 (14:22→21:52)
--- NOTE | 2022-01-01 14:38 | PC.NURSE ---
Report given to Jacob Navarro . patient aware of plan for admission . patient ready for transport .
[2022-01-01 15:44] LABS: Glucose, Whole Blood 283 mg/dL (60-115)
[2022-01-01 19:20] LABS: Glucose, Whole Blood 159 mg/dL (60-115)
[2022-01-01] MEDS: risperiDONE 3 MG TABLET 6 MG PO (21:51)
[2022-01-01] MEDS: Pravastatin Sodium 40 MG TABLET PO (21:51)
[2022-01-01] MEDS: Tamsulosin HCL 0.4 MG CAPSULE PO (21:51)
[2022-01-01] MEDS: Benztropine Mesylate 1 MG TABLET 2 MG PO (21:51)
[2022-01-01] MEDS: vancomycin HCL 1,500 MG in 0.9 % Sodium Chloride 500 ML 333.33 MG IV (21:58)
[2022-01-02 03:19] VITALS: BP 136/64; PULSE 87; RESP 17; TEMP 37.6; O2SAT 95
[2022-01-02] MEDS: Omeprazole 20 MG CAPSULE.DR PO (06:09)
[2022-01-02] MEDS: Heparin Sodium,Porcine 5,000 UNIT/ML VIAL 5000 UNIT SUBCUT ×2 (06:09→19:59)
[2022-01-02 06:28] LABS: Basophils Percent Auto 0.2 % (0-2); Eosinophils Absolute Auto 0.1 X10*3/uL (0.0-0.4); Eosinophils Percent Auto 0.8 % (0-4); Hematocrit 35.6 % (42.0-52.0); Imm Gran Abs Auto 0.15 X10*3/uL (0.00-0.03); Imm Gran Pct Auto 0.9 % (0.0-0.4); Lymphocytes Absolute Auto 1.3 X10*3/uL (1.2-4.9); Lymphocytes Percent Auto 7.5 % (20-40); MANUAL DIFF FLAG SCAN; Mean Corpuscular HGB Conc 33.7 g/dl (31.0-36.0); Mean Corpuscular Hemoglobin 30.6 pg (27.0-33.0); Mean Corpuscular Volume 90.8 fL (80.0-98.0); Mean Platelet Volume 11.1 fL (9.4-12.4); Monocytes Absolute Auto 1.7 X10*3/uL (0.1-1.2); Monocytes Percent Auto 9.9 % (2-11); Neutrophils Absolute Auto 13.5 x10*3/uL (2.0-8.3); Neutrophils Percent Auto 80.7 % (45-73); Platelet Count 141 X10*3/uL (160-400); Red Blood Count 3.92 X10*6/uL (4.60-5.80); Red Cell Distribution Width 11.9 % (11.0-16.0); SCAN SMEAR FLAG 1; White Blood Count 16.7 X10*3/uL (4.8-10.8)
[2022-01-02 06:34] LABS: Anion Gap 14 (12-20); Blood Urea Nitrogen 15 mg/dL (9-16); Calcium 9.1 mg/dL (8.4-10.2); Carbon Dioxide 20 mmol/L (22-29); Chloride 107 mmol/L (96-108); Creatinine Clr Calc Pharmacy 61.2; Estimated Glomerular Filt Rate > 60; Glucose Fasting 179 mg/dL (60-99); Potassium 3.7 mmol/L (3.3-5.1); Sodium 137 mmol/L (135-145)
[2022-01-02 07:38] LABS: SLIDE REVIEW VERIFIED
[2022-01-02 07:48] LABS: Glucose, Whole Blood 199 mg/dL (60-115)
[2022-01-02 07:49] VITALS: BP 126/71; PULSE 92; RESP 18; TEMP 37.3; O2SAT 96
[2022-01-02] MEDS: Propranolol HCL 20 MG TABLET PO (08:02)
[2022-01-02] MEDS: Sennosides 8.6 MG TABLET 17.2 MG PO (08:02)
[2022-01-02] MEDS: Multivitamin TABLET 1 TAB PO (08:02)
[2022-01-02] MEDS: Benztropine Mesylate 1 MG TABLET 2 MG PO ×2 (08:02→20:01)
[2022-01-02] MEDS: Pregabalin 100 MG CAPSULE PO ×2 (08:02→20:01)
[2022-01-02] MEDS: risperiDONE 2 MG TABLET PO (08:03)
[2022-01-02] MEDS: Lithium Carbonate 300 MG CAPSULE 900 MG PO (08:03)
[2022-01-02] MEDS: Insulin Glargine,Hum.rec.anlog 100 UNIT/ML 10 ML VIAL 15 UNIT SUBCUT (08:03)
[2022-01-02] MEDS: Docusate Sodium 100 MG CAPSULE PO ×2 (08:03→20:01)
[2022-01-02] MEDS: Finasteride 5 MG TABLET PO (08:03)
[2022-01-02] MEDS: Insulin Lispro 100 UNIT/ML 3 ML VIAL SUBCUT ×6 (08:04→20:17)
[2022-01-02] MEDS: 0.9 % Sodium Chloride Flush 3 ML SYRINGE IVFLUSH ×3 (08:05→20:46)
[2022-01-02] MEDS: cefEPime HCl 2 GM in 0.9 % Sodium Chloride 50 ML IV ×2 (08:06→20:02)
--- NOTE | 2022-01-02 09:38 | P.PNIM_ITS ---
Subjective Subjective Date of Service: 01/02/22 Interval History: cc: fever interval history: feeling better Cardiovascular Cardiovascular: Reports no additional cardiovascular complaints Respiratory Respiratory: Reports no additional respiratory complaints Physical Exam Vital Signs: Vital Signs: Last Vital Signs Temp 99.2 F 01/02/22 07:49 Pulse 92 01/02/22 07:49 Resp 18 01/02/22 07:49 BP 126/71 01/02/22 07:49 Pulse Ox 96 01/02/22 07:49 O2 Del Method 01/02/22 07:49 BMI result Body Mass Index 21.9 General: AO X 3, no acute distress Resp: CTA bilateral, no accessory muscles used CVS: S1,S2,RRR GI: soft, non tender, non distended Neuro: motor grossly intact, alert Psych: appropriate affect, appropriate insight bilateral plantar foot ulcers Objective Data Active Medications Benztropine Mesylate (Benztropine Mesylate 1 Mg Tablet) 2 mg PO BID [facility] Last Admin: 01/02/22 08:02 Dose: 2 mg Documented By: ROS Dextrose (Dextrose 50 % 25 Gm/50 Ml Syringe) 25 gm IVPUSH Q15M PRN; Protocol PRN Reason: per Hypoglycemia Standing Ord. Docusate Sodium (Docusate Sodium 100 Mg Capsule) 100 mg PO DAILY PRN PRN Reason: Constipation Docusate Sodium (Docusate Sodium 100 Mg Capsule) 100 mg PO BID [facility] Last Admin: 01/02/22 08:03 Dose: 100 mg Documented By: ROS Finasteride (Finasteride 5 Mg Tablet) 5 mg PO DAILY [facility] Last Admin: 01/02/22 08:03 Dose: 5 mg Documented By: ROS Glucose (Glucose Gel 15 Gm Gel..Gram.) 15 gm PO Q15M PRN; Protocol PRN Reason: per Hypoglycemia Standing Ord. Heparin Sodium (Porcine) (Heparin Sodium,Porcine 5,000 Unit/Ml Vial) 5,000 unit SUBCUT Q12H [facility] Last Admin: 01/02/22 06:09 Dose: 5,000 unit Documented By: PARIS Cefepime HCl 2 gm/ Sodium (Chloride) 50 mls @ 100 mls/hr IV Q12H [facility] Last Infusion: 01/02/22 09:01 Dose: 0 mls/hr Documented By: ROS Vancomycin HCl 1,500 mg/ (Sodium Chloride) 500 mls @ 333.333 mls/hr IV Q24H [facility] Last Infusion: 01/02/22 00:30 Dose: 333.3 mls/hr Documented By: PARIS Insulin Glargine (Insulin Glargine,Hum.Rec.Anlog 100 Unit/Ml 10 Ml Vial) 15 unit SUBCUT DAILY [facility] Last Admin: 01/02/22 08:03 Dose: 15 unit Documented By: ROS Insulin Human Lispro (Insulin Lispro 100 Unit/Ml 3 Ml Vial) 0 unit SUBCUT QIDACHS [facility]; Protocol Last Admin: 01/02/22 08:04 Dose: 2 unit Documented By: ROS Ketoconazole (Ketoconazole 2 % Shampoo 120 Ml Btl) 1 appl TOPICAL Mo [facility]; Protocol Lactulose (Lactulose 20 Gm/30 Ml Solution) 10 gm PO DAILY PRN PRN Reason: Constipation [place] Carbonate ([place] Carbonate 300 Mg Capsule) 900 mg PO DAILY [facility] Last Admin: 01/02/22 08:03 Dose: 900 mg Documented By: ROS Loperamide HCl (Loperamide Hcl 2 Mg Capsule) 2 mg PO QID PRN PRN Reason: Diarrhea Multivitamins/Vitamin C (Multivitamin Tablet) 1 tab PO DAILY [facility] Last Admin: 01/02/22 08:02 Dose: 1 tab Documented By: ROS Non-Formulary Medication (Genvoya) 1 tab PO DAILY [facility] Omeprazole (Omeprazole 20 Mg Capsule.Dr) 20 mg PO DAILY@0630 [facility] Last Admin: 01/02/22 06:09 Dose: 20 mg Documented By: PARIS Ondansetron HCl (Ondansetron Hcl 4 Mg/2 Ml Vial) 4 mg IVPUSH Q8H PRN PRN Reason: Nausea and Vomiting Pharmacy Consult (Consult Rx Vancomycin Dosing) 1 each MISCELLANE DAILY PRN PRN Reason: Consult order Pharmacy Consult (Consult Rx Perform Med Rec) 1 each MISCELLANE ONCE PRN PRN Reason: Consult order Polyethylene Glycol (Polyethylene Glycol 3350 17 Gm Powd.Pack) 17 gm PO DAILY [facility] Last Admin: 01/02/22 08:05 Dose: Not Given Documented By: ROS Non-Admin Reason: Patient Refused Pravastatin Sodium (Pravastatin Sodium 40 Mg Tablet) 40 mg PO BEDTIME [facility] Last Admin: 01/01/22 21:51 Dose: 40 mg Documented By: PARIS Pregabalin (Pregabalin 100 Mg Capsule) 100 mg PO BID [facility] Last Admin: 01/02/22 08:02 Dose: 100 mg Documented By: ROS Propranolol HCl (Propranolol Hcl 20 Mg Tablet) 20 mg PO DAILY [facility]; Protocol Last Admin: 01/02/22 08:02 Dose: 20 mg Documented By: ROS Risperidone (Risperidone 2 Mg Tablet) 2 mg PO DAILY@0900 [facility] Last Admin: 01/02/22 08:03 Dose: 2 mg Documented By: ROS Risperidone (Risperidone 3 Mg Tablet) 6 mg PO BEDTIME [facility] Last Admin: 01/01/22 21:51 Dose: 6 mg Documented By: PARIS Senna (Sennosides 8.6 Mg Tablet) 17.2 mg PO DAILY@0900 [facility] Last Admin: 01/02/22 08:02 Dose: 17.2 mg Documented By: ROS Sodium Chloride (0.9 % Sodium Chloride Flush 3 Ml Syringe) 3 ml IVFLUSH QSHIFT [facility] Last Admin: 01/02/22 08:05 Dose: 3 ml Documented By: ROS Tamsulosin HCl (Tamsulosin Hcl 0.4 Mg Capsule) 0.4 mg PO BEDTIME [facility] Last Admin: 01/01/22 21:51 Dose: 0.4 mg Documented By: PARIS Labs CBC & Chem 7: 01/02/22 05:48 01/02/22 05:48 Labs: Laboratory Results - last 24 hr 01/01/22 01/01/22 01/01/22 11:38 15:33 19:16 MCV MCH MCHC RDW Plt Count MPV Immature Gran % (Auto) Neut % (Auto) Lymph % (Auto) [place] % (Auto) Eos % (Auto) Baso % (Auto) Lymph # (Auto) [place] # (Auto) Eos # (Auto) Baso # (Auto) Abs Immat Gran (auto) Absolute Neuts (auto) Absolute Nucleated RBC Nucleated RBC % (auto) Smear Tech's Comments Anion Gap Estim Creat Clear Calc Estimated GFR POC Glucose 341 H 283 H 159 H Random Glucose Fasting Glucose Calcium 01/02/22 01/02/22 01/02/22 05:48 05:48 05:48 MCV 90.8 MCH 30.6 MCHC 33.7 RDW 11.9 Plt Count 141 L MPV 11.1 Immature Gran % (Auto) 0.9 H Neut % (Auto) 80.7 H Lymph % (Auto) 7.5 L [place] % (Auto) 9.9 Eos % (Auto) 0.8 Baso % (Auto) 0.2 Lymph # (Auto) 1.3 [place] # (Auto) 1.7 H Eos # (Auto) 0.1 Baso # (Auto) 0.0 Abs Immat Gran (auto) 0.15 H Absolute Neuts (auto) 13.5 H Absolute Nucleated RBC 0.000 Nucleated RBC % (auto) 0.0 Smear Tech's Comments VERIFIED Anion Gap 14 Cancelled Estim Creat Clear Calc 61.2 Cancelled Estimated GFR > 60 Cancelled POC Glucose Random Glucose Cancelled Fasting Glucose 179 H Calcium 9.1 D Cancelled 01/02/22 07:13 MCV MCH MCHC RDW Plt Count MPV Immature Gran % (Auto) Neut % (Auto) Lymph % (Auto) [place] % (Auto) Eos % (Auto) Baso % (Auto) Lymph # (Auto) [place] # (Auto) Eos # (Auto) Baso # (Auto) Abs Immat Gran (auto) Absolute Neuts (auto) Absolute Nucleated RBC Nucleated RBC % (auto) Smear Tech's Comments Anion Gap Estim Creat Clear Calc Estimated GFR POC Glucose 199 H Random Glucose Fasting Glucose Calcium Microbiology Microbiology Results: Microbiology 12/31/21 22:23 Blood Culture - Preliminary Blood - Venous No growth after 24 hours. 12/31/21 22:18 Blood Culture - Preliminary Blood - Venous No growth after 24 hours. Assessment and Plan (1) Sepsis: Status: Acute Plan 56-year-old male with past medical history of diabetes and history of diabetic foot infection presents to the hospital with fever, Found to have sepsis Sepsis possible due to bilateral diabetic foot ulcers continues to be febrile continue vanc, cefepime follow up MRI, ID cultures DM inuslin monitor pocs HIV genvoya DVT ppx: Heparin subq full code reason for continued hospitalization: awatiing defervesence Quality Stroke Does the patient have a stroke diagnosis?: No VTE Prior VTE?: No VTE Risk Level:: Medical - moderate - high VTE Device Contraindication: Treatment Not Indicated VTE Drug Contraindication: N/A - Med Ordered
[2022-01-02 11:50] LABS: Glucose, Whole Blood 355 mg/dL (60-115)
[2022-01-02 12:00] VITALS: BP 112/57; PULSE 77; RESP 17; TEMP 37.5; O2SAT 98
--- NOTE | 2022-01-02 13:11 | MHC.CM.PN ---
PT IS A CORRECTION RESIDENT PER RECORDS, PT IS INDEPENDENT WITH AMBULATION AND PERSONAL CARE PTS CONTACT DURING BUSINESS HOURS IS CATARINO VALENCIA [phone] HE HAS A HCP ON FILE PCP: RADHA HARRIS DCP RETURN TO VIA STAFF
[2022-01-02 15:27] VITALS: BP 159/62; PULSE 82; RESP 18; TEMP 37.4; O2SAT 98
[2022-01-02 16:42] LABS: Glucose, Whole Blood 202 mg/dL (60-115)
--- NOTE | 2022-01-02 17:25 | PC.NURSE ---
Small amount of blood noted to right foot, gauze pad and wrap applied. Dressing CD&I
[2022-01-02 19:12] VITALS: BP 114/59; PULSE 80; RESP 18; TEMP 37.1; O2SAT 97
[2022-01-02] MEDS: Tamsulosin HCL 0.4 MG CAPSULE PO (20:00)
[2022-01-02] MEDS: Pravastatin Sodium 40 MG TABLET PO (20:01)
[2022-01-02] MEDS: risperiDONE 3 MG TABLET 6 MG PO (20:01)
[2022-01-02 20:09] LABS: Glucose, Whole Blood 156 mg/dL (60-115)
[2022-01-02] MEDS: vancomycin HCL 1,500 MG in 0.9 % Sodium Chloride 500 ML 333.3 MG IV (20:18)
[2022-01-02 23:21] VITALS: BP 114/61; PULSE 79; RESP 18; TEMP 36.6; O2SAT 96
[2022-01-03] MEDS: Omeprazole 20 MG CAPSULE.DR PO (05:39)
[2022-01-03 05:45] LABS: Hematocrit 35.3 % (42.0-52.0); Hemoglobin 11.9 g/dl (14.0-18.0); Mean Corpuscular HGB Conc 33.7 g/dl (31.0-36.0); Mean Corpuscular Hemoglobin 30.2 pg (27.0-33.0); Mean Corpuscular Volume 89.6 fL (80.0-98.0); Mean Platelet Volume 10.7 fL (9.4-12.4); Platelet Count 159 X10*3/uL (160-400); Red Blood Count 3.94 X10*6/uL (4.60-5.80); Red Cell Distribution Width 11.9 % (11.0-16.0); White Blood Count 17.4 X10*3/uL (4.8-10.8)
[2022-01-03] MEDS: Heparin Sodium,Porcine 5,000 UNIT/ML VIAL 5000 UNIT SUBCUT ×2 (05:46→19:47)
[2022-01-03 07:42] LABS: Glucose, Whole Blood 156 mg/dL (60-115)
[2022-01-03 08:00] VITALS: BP 92/54; PULSE 76; RESP 19; TEMP 37.1; O2SAT 97
[2022-01-03] MEDS: risperiDONE 2 MG TABLET PO (08:43)
[2022-01-03] MEDS: Docusate Sodium 100 MG CAPSULE PO ×2 (08:44→19:48)
[2022-01-03] MEDS: Lithium Carbonate 300 MG CAPSULE 900 MG PO (08:44)
[2022-01-03] MEDS: Benztropine Mesylate 1 MG TABLET 2 MG PO ×2 (08:44→19:48)
[2022-01-03] MEDS: Sennosides 8.6 MG TABLET 17.2 MG PO (08:44)
[2022-01-03] MEDS: Pregabalin 100 MG CAPSULE PO ×2 (08:45→19:48)
[2022-01-03] MEDS: polyethylene glycoL 3350 17 GM POWD.PACK PO (08:48)
[2022-01-03] MEDS: Insulin Lispro 100 UNIT/ML 3 ML VIAL SUBCUT ×8 (08:48→21:28)
[2022-01-03] MEDS: Insulin Glargine,Hum.rec.anlog 100 UNIT/ML 10 ML VIAL 20 UNIT SUBCUT (08:49)
[2022-01-03] MEDS: Finasteride 5 MG TABLET PO (08:50)
[2022-01-03] MEDS: cefEPime HCl 2 GM in 0.9 % Sodium Chloride 50 ML IV ×2 (08:51→19:51)
[2022-01-03] MEDS: 0.9 % Sodium Chloride Flush 3 ML SYRINGE IVFLUSH ×3 (08:52→19:54)
--- NOTE | 2022-01-03 09:06 | HO.PM.IMPN ---
Subjective Subjective Date of Service: 01/03/22 Interval History: cc: fever interval history: feeling better Cardiovascular Cardiovascular: Reports no additional cardiovascular complaints Respiratory Respiratory: Reports no additional respiratory complaints Physical Exam Vital Signs: Vital Signs: Last Vital Signs Temp 98.7 F 01/03/22 08:00 Pulse 76 01/03/22 08:00 Resp 19 01/03/22 08:00 BP 92/54 L 01/03/22 08:00 Pulse Ox 97 01/03/22 08:00 O2 Del Method 01/03/22 08:00 BMI result Body Mass Index 21.9 General: AO X 3, no acute distress Resp: CTA bilateral, no accessory muscles used CVS: S1,S2,RRR GI: soft, non tender, non distended Neuro: motor grossly intact, alert Psych: appropriate affect, appropriate insight bilateral plantar foot ulcers Objective Data Active Medications Benztropine Mesylate (Benztropine Mesylate 1 Mg Tablet) 2 mg PO BID [facility] Last Admin: 01/03/22 08:44 Dose: 2 mg Documented By: GWEN Dextrose (Dextrose 50 % 25 Gm/50 Ml Syringe) 25 gm IVPUSH Q15M PRN; Protocol PRN Reason: per Hypoglycemia Standing Ord. Docusate Sodium (Docusate Sodium 100 Mg Capsule) 100 mg PO DAILY PRN PRN Reason: Constipation Docusate Sodium (Docusate Sodium 100 Mg Capsule) 100 mg PO BID [facility] Last Admin: 01/03/22 08:44 Dose: 100 mg Documented By: GWEN Finasteride (Finasteride 5 Mg Tablet) 5 mg PO DAILY [facility] Last Admin: 01/03/22 08:50 Dose: 5 mg Documented By: GWEN Glucose (Glucose Gel 15 Gm Gel..Gram.) 15 gm PO Q15M PRN; Protocol PRN Reason: per Hypoglycemia Standing Ord. Heparin Sodium (Porcine) (Heparin Sodium,Porcine 5,000 Unit/Ml Vial) 5,000 unit SUBCUT Q12H [facility] Last Admin: 01/03/22 05:46 Dose: 5,000 unit Documented By: PARIS Comments: pt is awake now Cefepime HCl 2 gm/ Sodium (Chloride) 50 mls @ 100 mls/hr IV Q12H [facility] Last Admin: 01/03/22 08:51 Dose: 100 mls/hr Documented By: GWEN Vancomycin HCl 1,500 mg/ (Sodium Chloride) 500 mls @ 333.333 mls/hr IV Q24H [facility] Last Infusion: 01/02/22 22:16 Dose: 0 mls/hr Documented By: PARIS Insulin Glargine (Insulin Glargine,Hum.Rec.Anlog 100 Unit/Ml 10 Ml Vial) 20 unit SUBCUT DAILY [facility] Last Admin: 01/03/22 08:49 Dose: 20 unit Documented By: GWEN Insulin Human Lispro (Insulin Lispro 100 Unit/Ml 3 Ml Vial) 0 unit SUBCUT QIDACHS [facility]; Protocol Last Admin: 01/03/22 08:48 Dose: 2 unit Documented By: GWEN Insulin Human Lispro (Insulin Lispro 100 Unit/Ml 3 Ml Vial) 5 unit SUBCUT QIDAS [facility] Last Admin: 01/03/22 08:49 Dose: 5 unit Documented By: GWEN Ketoconazole (Ketoconazole 2 % Shampoo 120 Ml Btl) 1 appl TOPICAL Mo [facility]; Protocol Lactulose (Lactulose 20 Gm/30 Ml Solution) 10 gm PO DAILY PRN PRN Reason: Constipation [place] Carbonate ([place] Carbonate 300 Mg Capsule) 900 mg PO DAILY [facility] Last Admin: 01/03/22 08:44 Dose: 900 mg Documented By: GWEN Loperamide HCl (Loperamide Hcl 2 Mg Capsule) 2 mg PO QID PRN PRN Reason: Diarrhea Multivitamins/Vitamin C (Multivitamin Tablet) 1 tab PO DAILY [facility] Last Admin: 01/02/22 08:02 Dose: 1 tab Documented By: ROS Non-Formulary Medication (Genvoya) 1 tab PO DAILY [facility] Omeprazole (Omeprazole 20 Mg Capsule.Dr) 20 mg PO DAILY@0630 [facility] Last Admin: 01/03/22 05:39 Dose: 20 mg Documented By: PARIS Ondansetron HCl (Ondansetron Hcl 4 Mg/2 Ml Vial) 4 mg IVPUSH Q8H PRN PRN Reason: Nausea and Vomiting Pharmacy Consult (Consult Rx Vancomycin Dosing) 1 each MISCELLANE DAILY PRN PRN Reason: Consult order Pharmacy Consult (Consult Rx Perform Med Rec) 1 each MISCELLANE ONCE PRN PRN Reason: Consult order Polyethylene Glycol (Polyethylene Glycol 3350 17 Gm Powd.Pack) 17 gm PO DAILY [facility] Last Admin: 01/03/22 08:48 Dose: 17 gm Documented By: GWEN Pravastatin Sodium (Pravastatin Sodium 40 Mg Tablet) 40 mg PO BEDTIME [facility] Last Admin: 01/02/22 20:01 Dose: 40 mg Documented By: PARIS Pregabalin (Pregabalin 100 Mg Capsule) 100 mg PO BID [facility] Last Admin: 01/03/22 08:45 Dose: 100 mg Documented By: GWEN Propranolol HCl (Propranolol Hcl 20 Mg Tablet) 20 mg PO DAILY [facility]; Protocol Last Admin: 01/03/22 08:46 Dose: Not Given Documented By: GWEN Non-Admin Reason: bp Risperidone (Risperidone 2 Mg Tablet) 2 mg PO DAILY@0900 [facility] Last Admin: 01/03/22 08:43 Dose: 2 mg Documented By: GWEN Risperidone (Risperidone 3 Mg Tablet) 6 mg PO BEDTIME [facility] Last Admin: 01/02/22 20:01 Dose: 6 mg Documented By: PARIS Senna (Sennosides 8.6 Mg Tablet) 17.2 mg PO DAILY@0900 [facility] Last Admin: 01/03/22 08:44 Dose: 17.2 mg Documented By: GWEN Sodium Chloride (0.9 % Sodium Chloride Flush 3 Ml Syringe) [facility] Last Admin: 01/03/22 08:52 Dose: 3 ml Documented By: GWEN Tamsulosin HCl (Tamsulosin Hcl 0.4 Mg Capsule) 0.4 mg PO BEDTIME [facility] Last Admin: 01/02/22 20:00 Dose: 0.4 mg Documented By: PARIS Labs CBC & Chem 7: 01/03/22 05:35 01/02/22 05:48 Labs: Laboratory Results - last 24 hr 01/02/22 01/02/22 01/02/22 11:26 15:40 19:15 MCV MCH MCHC RDW Plt Count MPV Absolute Nucleated RBC Nucleated RBC % (auto) POC Glucose 355 H* 202 H 156 H 01/03/22 01/03/22 05:35 07:26 MCV 89.6 MCH 30.2 MCHC 33.7 RDW 11.9 Plt Count 159 L MPV 10.7 Absolute Nucleated RBC 0.000 Nucleated RBC % (auto) 0.0 POC Glucose 156 H Microbiology Microbiology Results: Microbiology 12/31/21 22:23 Blood Culture - Preliminary Blood - Venous No growth after 48 hours. 12/31/21 22:18 Blood Culture - Preliminary Blood - Venous No growth after 48 hours. Assessment and Plan (1) Sepsis: Status: Acute Plan 56-year-old male with past medical history of diabetes and history of diabetic foot infection presents to the hospital with fever, Found to have sepsis Sepsis possible due to bilateral diabetic foot ulcers continue vanc, cefepime follow up MRI, ID cultures DM inuslin monitor pocs HIV genvoya DVT ppx: Heparin subq full code reason for continued hospitalization: awatiing defervesence Quality Stroke Does the patient have a stroke diagnosis?: No VTE Prior VTE?: No VTE Risk Level:: Medical - moderate - high VTE Device Contraindication: Treatment Not Indicated VTE Drug Contraindication: N/A - Med Ordered
[2022-01-03] MEDS: Multivitamin TABLET 1 TAB PO (10:22)
[2022-01-03 10:48] LABS: Anion Gap 18 (12-20); Blood Urea Nitrogen 14 mg/dL (9-16); Carbon Dioxide 18 mmol/L (22-29); Chloride 106 mmol/L (96-108); Creatinine Clr Calc Pharmacy 62.2; Estimated Glomerular Filt Rate > 60; Glucose Fasting 165 mg/dL (60-99); Potassium 3.8 mmol/L (3.3-5.1); Sodium 138 mmol/L (135-145)
[2022-01-03 11:13] LABS: Glucose, Whole Blood 265 mg/dL (60-115)
[2022-01-03 11:28] VITALS: BP 117/56; PULSE 75; RESP 19; TEMP 37.2; O2SAT 97
--- NOTE | 2022-01-03 15:06 | MHC.CM.PN ---
PER MD ROUNDS, NOT MEDICALLY CLEARED FOR DC, AWAITING DEFERVESCENSE/FOOT MRI/ID. CM WILL CONTINUE TO FOLLOW
--- NOTE | 2022-01-03 15:54 | W.PM.IDCN ---
History of Present Illness Data of Consult Service Date: 01/03/22 Requesting physician: Drake Arnold Primary Care Provider: Shell Lopez MD HPI Reason for consult: foot calluses with drainage He presents with fever and weakness but no specific foot complaints to ER except chronic clear drainage from right plantar callus. He has no fever or chills at this time but has WBC count of 17,000 and no other complaints. He is not bacteremic He has MRI done which shows osteomyelitis right foot which is chronic and I know left foot has chronic osteomyelitis around fifth metatarsal head. He had VRE bacteremia on 10/11 with fourteen days Linezolid He also had 03/05/2021 and 05/28/2021 Group B strep bacteremia. Review of Systems Review of Systems: Yes all other systems are reviewed and are negative [facility] Past Medical History Medical History BPH w urinary obs/LUTS Callus of foot Chronic prostatitis Diabetic foot ulcers Enterococcal bacteremia Erectile dysfunction due to arterial insufficiency Eschar of foot Hepatitis HIV (human immunodeficiency virus infection) Open wnd foot-complicated Osteomyelitis of left foot Sepsis Urinary hesitancy Family History Family History Father No problems noted. Mother No problems noted. Family history: reviewed and not pertinent Surgical History Surgical History No pertinent past surgical history Social History Social History Household Members: Other Housing: Other Housing Other:: [facility] Do you presently have visiting nurse or other home services: Yes Unable to assess alcohol history related to: Unknown Alcohol intake: never Patient Tobacco Use Status: Current everyday Tobacco user Tobacco use type: Cigarette Cigarette Packs Per Day: 1 Cigarettes Per Day: 20.0 service: No Current occupational status: unemployed Meds Allergies Allergy/AdvReac Type Severity Reaction Status Date / Time acetaminophen [From TYLENOL] Allergy Unknown UNKNOWN Verified 10/28/21 09:41 aspirin [ASA] Allergy Unknown AGITATION Verified 10/28/21 09:41 trazodone [TRAZODONE] AdvReac Unknown HYPER Verified 10/28/21 09:41 Active Medications: Current Medications Benztropine Mesylate (Benztropine Mesylate 1 Mg Tablet) 2 mg PO BID [facility] Last Admin: 01/03/22 08:44 Dose: 2 mg Dextrose (Dextrose 50 % 25 Gm/50 Ml Syringe) 25 gm IVPUSH Q15M PRN; Protocol PRN Reason: per Hypoglycemia Standing Ord. Docusate Sodium (Docusate Sodium 100 Mg Capsule) 100 mg PO DAILY PRN PRN Reason: Constipation Docusate Sodium (Docusate Sodium 100 Mg Capsule) 100 mg PO BID [facility] Last Admin: 01/03/22 08:44 Dose: 100 mg Finasteride (Finasteride 5 Mg Tablet) 5 mg PO DAILY [facility] Last Admin: 01/03/22 08:50 Dose: 5 mg Glucose (Glucose Gel 15 Gm Gel..Gram.) 15 gm PO Q15M PRN; Protocol PRN Reason: per Hypoglycemia Standing Ord. Heparin Sodium (Porcine) (Heparin Sodium,Porcine 5,000 Unit/Ml Vial) 5,000 unit SUBCUT Q12H [facility] Last Admin: 01/03/22 05:46 Dose: 5,000 unit Cefepime HCl 2 gm/ Sodium (Chloride) 50 mls @ 100 mls/hr IV Q12H [facility] Last Infusion: 01/03/22 09:57 Dose: Infused Vancomycin HCl 1,500 mg/ (Sodium Chloride) 500 mls @ 333.333 mls/hr IV Q24H [facility] Last Infusion: 01/02/22 22:16 Dose: Infused Insulin Glargine (Insulin Glargine,Hum.Rec.Anlog 100 Unit/Ml 10 Ml Vial) 20 unit SUBCUT DAILY [facility] Last Admin: 01/03/22 08:49 Dose: 20 unit Insulin Human Lispro (Insulin Lispro 100 Unit/Ml 3 Ml Vial) 0 unit SUBCUT QIDACHS [facility]; Protocol Last Admin: 01/03/22 13:24 Dose: 6 unit Insulin Human Lispro (Insulin Lispro 100 Unit/Ml 3 Ml Vial) 5 unit SUBCUT QIDACHS [facility] Last Admin: 01/03/22 13:26 Dose: 5 unit Ketoconazole (Ketoconazole 2 % Shampoo 120 Ml Btl) 1 appl TOPICAL Mo [facility]; Protocol Last Admin: 01/03/22 11:44 Dose: Not Given Lactulose (Lactulose 20 Gm/30 Ml Solution) 10 gm PO DAILY PRN PRN Reason: Constipation [place] Carbonate (S[place]ter Carbonate 300 Mg Capsule) 900 mg PO DAILY [facility] Last Admin: 01/03/22 08:44 Dose: 900 mg Loperamide HCl (Loperamide Hcl 2 Mg Capsule) 2 mg PO QID PRN PRN Reason: Diarrhea Multivitamins/Vitamin C (Multivitamin Tablet) 1 tab PO DAILY [facility] Last Admin: 01/03/22 10:22 Dose: 1 tab Non-Formulary Medication (Genvoya) 1 tab PO DAILY [facility] Omeprazole (Omeprazole 20 Mg Capsule.Dr) 20 mg PO DAILY@0630 [facility] Last Admin: 01/03/22 05:39 Dose: 20 mg Ondansetron HCl (Ondansetron Hcl 4 Mg/2 Ml Vial) 4 mg IVPUSH Q8H PRN PRN Reason: Nausea and Vomiting Pharmacy Consult (Consult Rx Vancomycin Dosing) 1 each MISCELLANE DAILY PRN PRN Reason: Consult order Pharmacy Consult (Consult Rx Perform Med Rec) 1 each MISCELLANE ONCE PRN PRN Reason: Consult order Polyethylene Glycol (Polyethylene Glycol 3350 17 Gm Powd.Pack) 17 gm PO DAILY [facility] Last Admin: 01/03/22 08:48 Dose: 17 gm Pravastatin Sodium (Pravastatin Sodium 40 Mg Tablet) 40 mg PO BEDTIME [facility] Last Admin: 01/02/22 20:01 Dose: 40 mg Pregabalin (Pregabalin 100 Mg Capsule) 100 mg PO BID [facility] Last Admin: 01/03/22 08:45 Dose: 100 mg Propranolol HCl (Propranolol Hcl 20 Mg Tablet) 20 mg PO DAILY [facility]; Protocol Last Admin: 01/03/22 08:46 Dose: Not Given Risperidone (Risperidone 2 Mg Tablet) 2 mg PO DAILY@0900 [facility] Last Admin: 01/03/22 08:43 Dose: 2 mg Risperidone (Risperidone 3 Mg Tablet) 6 mg PO BEDTIME [facility] Last Admin: 01/02/22 20:01 Dose: 6 mg Senna (Sennosides 8.6 Mg Tablet) 17.2 mg PO DAILY@0900 [facility] Last Admin: 01/03/22 08:44 Dose: 17.2 mg Sodium Chloride (0.9 % Sodium Chloride Flush 3 Ml Syringe) 3 ml IVFLUSH QSHIFT [facility] Last Admin: 01/03/22 08:52 Dose: 3 ml Tamsulosin HCl (Tamsulosin Hcl 0.4 Mg Capsule) 0.4 mg PO BEDTIME [facility] Last Admin: 01/02/22 20:00 Dose: 0.4 mg Home Medications Medication Instructions Recorded Confirmed Last Taken Type benztropine 2 mg tablet 2 mg PO BID 02/16/21 01/01/22 Unknown History docusate sodium 100 mg capsule 100 mg PO BID 02/16/21 01/01/22 Unknown History elviteg 150 mg-cob 150 mg-emtricit 1 tab PO DAILY 02/16/21 01/01/22 Unknown History 200 mg-tenofo alafenam 10 mg tablet (Genvoya) lithium carbonate 300 mg tablet 900 mg PO DAILY 02/16/21 01/01/22 Unknown History pravastatin 40 mg tablet 40 mg PO BEDTIME 02/16/21 01/01/22 Unknown History propranolol 20 mg tablet 20 mg PO DAILY 02/16/21 01/01/22 Unknown History risperidone 3 mg tablet 6 mg PO BEDTIME 02/16/21 01/01/22 Unknown History insulin aspar prot-insulin aspart 15 unit subcut DAILY@0900 03/05/21 01/01/22 Unknown History 100 unit/mL (70-30) subcutaneous pen (Novolog Mix 70-30FlexPen U-100) omeprazole 20 mg capsule,delayed 20 mg PO DAILY@0630 03/05/21 01/01/22 Unknown History release omunlxhz-wjl-ukftw acid 0.4 1 tab PO DAILY 07/27/21 01/01/22 Unknown History mg-lycopene 300 mcg-lutein 250 mcg tablet (Cerovite Senior) pregabalin 100 mg capsule 100 mg PO BID 07/27/21 01/01/22 Unknown History polyethylene glycol 3350 17 17 g PO DAILY 09/02/21 01/01/22 Unknown History gram/dose oral powder (Gavilax) ketoconazole 2 % shampoo 1 appl topical Q7D 10/12/21 01/01/22 Unknown History glucose 4 gram chewable tablet 4 g PO Q15M PRN Hypoglycemia 01/01/22 01/01/22 Unknown History insulin aspar prot-insulin aspart 17 unit subcut DAILY@2100 01/01/22 01/01/22 Unknown History 100 unit/mL (70-30) subcutaneous pen (Novolog Mix 70-30FlexPen U-100) lactulose 10 gram/15 mL oral 10 g PO DAILY PRN Constipation 01/01/22 01/01/22 Unknown History solution loperamide 2 mg capsule 2 mg PO QID PRN Diarrhea 01/01/22 01/01/22 Unknown History naproxen 500 mg tablet 500 mg PO BID PRN Pain 01/01/22 01/01/22 Unknown History risperidone 2 mg tablet 2 mg PO DAILY@0900 01/01/22 01/01/22 Unknown History sennosides 8.6 mg tablet (senna) 17.2 mg PO DAILY@0900 01/01/22 01/01/22 Unknown History Physical Exam Vital Signs: Vital Signs: Last Vital Signs Temp 99.0 F 01/03/22 11:28 Pulse 75 01/03/22 11:28 Resp 19 01/03/22 11:28 BP 117/56 L 01/03/22 11:28 Pulse Ox 97 01/03/22 11:28 O2 Del Method 01/03/22 11:28 BMI result Body Mass Index 21.9 Const: General: cooperative HEENT: Head: Yes normal to inspection Face and sinus: Yes normal facial exam Mouth: Normal oral and palatal mucosa present Teeth and gingiva: dentition normal Eyes: General: appearance normal, both eyes and all related structures Pupils: Equal, round and reactive pupils present Resp: Effort & Inspection: normal respiratory effort Cardio: Rate: regular rate Rhythm: regular rhythm GI: Palpation (GI): Soft to palpation and nontender : General: Yes no CVA tenderness Back/Spine/Pelvis: Back: no CVA tenderness Skin: General skin exam: no rashes or lesions noted Neuro: General: moves all extremities Cranial nerves: Yes Equal, round and reactive pupils present Extrem: Other: neuropathy feet, chronic calluses Psych: Appearance: grossly normal Results Labs CBC & Chem 7: 01/03/22 05:35 01/03/22 05:35 Labs: Short CBC 01/03/22 Range/Units 05:35 WBC 17.4 H (4.8-10.8) X10*3/uL Hgb 11.9 L (14.0-18.0) g/dl Hct 35.3 L (42.0-52.0) % Plt Count 159 L (160-400) X10*3/uL BMP 01/03/22 05:35 Sodium 138 Potassium 3.8 Chloride 106 Carbon Dioxide 18 L BUN 14 Creatinine 1.21 Calcium 9.0 Microbiology Microbiology Results: Microbiology 12/31/21 22:23 Blood - Venous Blood Culture - Preliminary No growth after 48 hours. 12/31/21 22:18 Blood - Venous Blood Culture - Preliminary No growth after 48 hours. Assessment and Plan (1) Diabetic foot infection: Status: Acute He has chronic callused feet with apparently chronic OM right foot as well as left. Periodically he comes in with sepsis or foot infection related to this I do not think he follows his Podiatry plan He takes HIV medication regularly and is doing well Plan Continue broadspectrum antibiotics while in hospital and then po Doxycycline and Augmentin fourteen days. IV antibiotics not likely benefit in chronic osteomyelitis. Surgical debridement may be helpful of calluses and patient may eventually need amputation if infection becomes severe so try to wear diabetic shoes and be mindful of foot care.
[2022-01-03 16:00] VITALS: BP 113/70; PULSE 84; RESP 18; TEMP 37.2; O2SAT 97
[2022-01-03 16:28] LABS: Glucose, Whole Blood 239 mg/dL (60-115)
[2022-01-03 19:01] VITALS: BP 132/63; PULSE 84; RESP 18; TEMP 37.1; O2SAT 98
[2022-01-03 19:38] LABS: Glucose, Whole Blood 253 mg/dL (60-115)
[2022-01-03 19:46] LABS: Vancomycin Trough 9.2 mcg/mL (10.0-20.0)
[2022-01-03] MEDS: Pravastatin Sodium 40 MG TABLET PO (19:48)
[2022-01-03] MEDS: risperiDONE 3 MG TABLET 6 MG PO (19:48)
[2022-01-03] MEDS: Tamsulosin HCL 0.4 MG CAPSULE PO (19:48)
--- NOTE | 2022-01-03 19:56 | HE.PHANOTE ---
Addendum entered by Zayda Cary RPh 01/04/22 10:16: RE VANCO CHANGED TO 750MG Q12H, DID NOT FEEL COMFORTABLE GIVING ALMOST 27MG/KG A SINGLE DOSE. NEW AUC 467, TROUGH 14.5 [facility] Original Note: Vancomycin Dosing Level 9.2 today. Since patient has osteomylitis will increase dose to vancomycin 1750 mg Q24H. Expected AUC 515 with a trough of 12.3. next level to be drawn 01/05 @ 1900. Pharmacy will monitor renal function daily. Agustina Hayes, PharmD
[2022-01-03] MEDS: vancomycin HCL 1,000 MG, vancomycin HCL 750 MG in 0.9 % Sodium Chloride 500 ML 267.5 MG IV (21:56)
[2022-01-04] VITALS: BP 136/75; PULSE 83; RESP 17; TEMP 37.4; O2SAT 98
[2022-01-04 03:11] VITALS: BP 128/73; PULSE 83; RESP 18; TEMP 37.2; O2SAT 97
[2022-01-04] MEDS: Omeprazole 20 MG CAPSULE.DR PO (05:39)
[2022-01-04 05:43] LABS: Hematocrit 34.9 % (42.0-52.0); Hemoglobin 11.7 g/dl (14.0-18.0); Mean Corpuscular HGB Conc 33.5 g/dl (31.0-36.0); Mean Corpuscular Volume 89.5 fL (80.0-98.0); Platelet Count 189 X10*3/uL (160-400); Red Cell Distribution Width 11.6 % (11.0-16.0)
[2022-01-04 06:03] LABS: Anion Gap 12 (12-20); Blood Urea Nitrogen 13 mg/dL (9-16); Calcium 9.1 mg/dL (8.4-10.2); Carbon Dioxide 24 mmol/L (22-29); Chloride 105 mmol/L (96-108); Creatinine Clr Calc Pharmacy 57.9; Estimated Glomerular Filt Rate 57; Glucose Fasting 192 mg/dL (60-99); Potassium 3.9 mmol/L (3.3-5.1); Sodium 137 mmol/L (135-145)
[2022-01-04 07:34] LABS: Glucose, Whole Blood 192 mg/dL (60-115)
[2022-01-04] MEDS: Heparin Sodium,Porcine 5,000 UNIT/ML VIAL 5000 UNIT SUBCUT (07:55)
[2022-01-04] MEDS: Insulin Lispro 100 UNIT/ML 3 ML VIAL SUBCUT ×6 (07:55→16:57)
[2022-01-04] MEDS: 0.9 % Sodium Chloride Flush 3 ML SYRINGE IVFLUSH ×2 (07:55→20:38)
[2022-01-04 07:58] VITALS: BP 119/66; PULSE 75; RESP 18; TEMP 36.9; O2SAT 99
[2022-01-04] MEDS: Lithium Carbonate 300 MG CAPSULE 900 MG PO (08:04)
[2022-01-04] MEDS: Benztropine Mesylate 1 MG TABLET 2 MG PO ×2 (08:04→20:37)
[2022-01-04] MEDS: risperiDONE 2 MG TABLET PO (08:04)
[2022-01-04] MEDS: Sennosides 8.6 MG TABLET 17.2 MG PO (08:04)
[2022-01-04] MEDS: Propranolol HCL 20 MG TABLET PO (08:04)
[2022-01-04] MEDS: Pregabalin 100 MG CAPSULE PO ×2 (08:04→20:37)
[2022-01-04] MEDS: Finasteride 5 MG TABLET PO (08:05)
[2022-01-04] MEDS: Docusate Sodium 100 MG CAPSULE PO ×2 (08:05→20:37)
[2022-01-04] MEDS: Multivitamin TABLET 1 TAB PO (08:05)
[2022-01-04] MEDS: polyethylene glycoL 3350 17 GM POWD.PACK PO (08:05)
[2022-01-04] MEDS: cefEPime HCl 2 GM in 0.9 % Sodium Chloride 50 ML IV ×2 (08:25→20:38)
[2022-01-04] MEDS: Insulin Glargine,Hum.rec.anlog 100 UNIT/ML 10 ML VIAL 20 UNIT SUBCUT (08:27)
[2022-01-04 11:46] LABS: Glucose, Whole Blood 277 mg/dL (60-115)
[2022-01-04] MEDS: vancomycin HCL 750 MG in 0.9 % Sodium Chloride 250 ML 265 MG IV ×2 (11:49→21:59)
[2022-01-04 11:54] VITALS: BP 112/60; PULSE 72; RESP 17; TEMP 36.7; O2SAT 99
--- NOTE | 2022-01-04 12:57 | P.CONGS_ITS ---
History of Present Illness Consult details Consult date: 01/04/22 Narrative: 56-year-old male referred for a right foot diabetic wound. He was admitted 2 days ago from the sn[facility] because of fever and weakness . He was noted to have a wound on the right foot between the 1st and 2nd toes fall smell and drainage. He also was being treated for sepsis at that time. I was therefore consulted because of this wound. He has had chronic calluses on both the lateral aspect of the left foot as well as the plantar aspect the right foot. I had seen him in the past for this. He continues to have this thick calluses. Based on his records, he seems to be more alert today. He denies pain on the right foot. He otherwise does not really provide much with regards to history details.. Review of Systems Constitutional: Constitutional: Reports fever(s) and Reports weakness Cardiovascular: Cardiovascular: Denies chest pain Respiratory: Respiratory: Denies cough Gastrointestinal: Gastrointestinal: Denies abdominal pain Genitourinary: Genitourinary: Denies difficulty urinating Neurologic: Reports weakness PMFSH Past Medical History Medical History BPH w urinary obs/LUTS Callus of foot Chronic prostatitis Diabetic foot ulcers Enterococcal bacteremia Erectile dysfunction due to arterial insufficiency Eschar of foot Hepatitis HIV (human immunodeficiency virus infection) Open wnd foot-complicated Osteomyelitis of left foot Sepsis Urinary hesitancy Family History Family History Father No problems noted. Mother No problems noted. Family history: reviewed and not pertinent Surgical History Surgical History No pertinent past surgical history Social History Social History Household Members: Other Housing: Other Housing Other:: prison Do you presently have visiting nurse or other home services: Yes Unable to assess alcohol history related to: Unknown Alcohol intake: never Patient Tobacco Use Status: Current everyday Tobacco user Tobacco use type: Cigarette Cigarette Packs Per Day: 1 Cigarettes Per Day: 20.0 service: No Current occupational status: unemployed Meds Allergies Allergy/AdvReac Type Severity Reaction Status Date / Time acetaminophen [From TYLENOL] Allergy Unknown UNKNOWN Verified 10/28/21 09:41 aspirin [ASA] Allergy Unknown AGITATION Verified 10/28/21 09:41 trazodone [TRAZODONE] AdvReac Unknown HYPER Verified 10/28/21 09:41 Active Medications: Current Medications Benztropine Mesylate (Benztropine Mesylate 1 Mg Tablet) 2 mg PO BID [facility] Last Admin: 01/04/22 08:04 Dose: 2 mg Dextrose (Dextrose 50 % 25 Gm/50 Ml Syringe) 25 gm IVPUSH Q15M PRN; Protocol PRN Reason: per Hypoglycemia Standing Ord. Docusate Sodium (Docusate Sodium 100 Mg Capsule) 100 mg PO DAILY PRN PRN Reason: Constipation Docusate Sodium (Docusate Sodium 100 Mg Capsule) 100 mg PO BID [facility] Last Admin: 01/04/22 08:05 Dose: 100 mg Finasteride (Finasteride 5 Mg Tablet) 5 mg PO DAILY [facility] Last Admin: 01/04/22 08:05 Dose: 5 mg Glucose (Glucose Gel 15 Gm Gel..Gram.) 15 gm PO Q15M PRN; Protocol PRN Reason: per Hypoglycemia Standing Ord. Heparin Sodium (Porcine) (Heparin Sodium,Porcine 5,000 Unit/Ml Vial) 5,000 unit SUBCUT Q12H [facility] Last Admin: 01/04/22 07:55 Dose: 5,000 unit Cefepime HCl 2 gm/ Sodium (Chloride) 50 mls @ 100 mls/hr IV Q12H [facility] Last Infusion: 01/04/22 09:30 Dose: Infused Vancomycin HCl 750 mg/ Sodium (Chloride) 265 mls @ 265 mls/hr IV Q12H [facility] Last Admin: 01/04/22 11:49 Dose: 265 mls/hr Insulin Glargine (Insulin Glargine,Hum.Rec.Anlog 100 Unit/Ml 10 Ml Vial) 20 unit SUBCUT DAILY [facility] Last Admin: 01/04/22 08:27 Dose: 20 unit Insulin Human Lispro (Insulin Lispro 100 Unit/Ml 3 Ml Vial) 0 unit SUBCUT QIDACHS [facility]; Protocol Last Admin: 01/04/22 11:48 Dose: 6 unit Insulin Human Lispro (Insulin Lispro 100 Unit/Ml 3 Ml Vial) 5 unit SUBCUT QIDACHS [facility] Last Admin: 01/04/22 11:48 Dose: 5 unit Ketoconazole (Ketoconazole 2 % Shampoo 120 Ml Btl) 1 appl TOPICAL Mo [facility]; Protocol Last Admin: 01/03/22 11:44 Dose: Not Given Lactulose (Lactulose 20 Gm/30 Ml Solution) 10 gm PO DAILY PRN PRN Reason: Constipation [place] Carbonate ([place] Carbonate 300 Mg Capsule) 900 mg PO DAILY [facility] Last Admin: 01/04/22 08:04 Dose: 900 mg Loperamide HCl (Loperamide Hcl 2 Mg Capsule) 2 mg PO QID PRN PRN Reason: Diarrhea Multivitamins/Vitamin C (Multivitamin Tablet) 1 tab PO DAILY [facility] Last Admin: 01/04/22 08:05 Dose: 1 tab Non-Formulary Medication (Genvoya) 1 tab PO DAILY [facility] Omeprazole (Omeprazole 20 Mg Capsule.Dr) 20 mg PO DAILY@0630 [facility] Last Admin: 01/04/22 05:39 Dose: 20 mg Ondansetron HCl (Ondansetron Hcl 4 Mg/2 Ml Vial) 4 mg IVPUSH Q8H PRN PRN Reason: Nausea and Vomiting Pharmacy Consult (Consult Rx Vancomycin Dosing) 1 each MISCELLANE DAILY PRN PRN Reason: Consult order Pharmacy Consult (Consult Rx Perform Med Rec) 1 each MISCELLANE ONCE PRN PRN Reason: Consult order Polyethylene Glycol (Polyethylene Glycol 3350 17 Gm Powd.Pack) 17 gm PO DAILY [facility] Last Admin: 01/04/22 08:05 Dose: 17 gm Pravastatin Sodium (Pravastatin Sodium 40 Mg Tablet) 40 mg PO BEDTIME [facility] Last Admin: 01/03/22 19:48 Dose: 40 mg Pregabalin (Pregabalin 100 Mg Capsule) 100 mg PO BID [facility] Last Admin: 01/04/22 08:04 Dose: 100 mg Propranolol HCl (Propranolol Hcl 20 Mg Tablet) 20 mg PO DAILY [facility]; Protocol Last Admin: 01/04/22 08:04 Dose: 20 mg Risperidone (Risperidone 2 Mg Tablet) 2 mg PO DAILY@0900 [facility] Last Admin: 01/04/22 08:04 Dose: 2 mg Risperidone (Risperidone 3 Mg Tablet) 6 mg PO BEDTIME [facility] Last Admin: 01/03/22 19:48 Dose: 6 mg Senna (Sennosides 8.6 Mg Tablet) 17.2 mg PO DAILY@0900 [facility] Last Admin: 01/04/22 08:04 Dose: 17.2 mg Sodium Chloride (0.9 % Sodium Chloride Flush 3 Ml Syringe) 3 ml IVFLUSH QSHIFT [facility] Last Admin: 01/04/22 07:55 Dose: 3 ml Tamsulosin HCl (Tamsulosin Hcl 0.4 Mg Capsule) 0.4 mg PO BEDTIME [facility] Last Admin: 01/03/22 19:48 Dose: 0.4 mg Home Medications Medication Instructions Recorded Confirmed Last Taken Type benztropine 2 mg tablet 2 mg PO BID 02/16/21 01/01/22 Unknown History docusate sodium 100 mg capsule 100 mg PO BID 02/16/21 01/01/22 Unknown History elviteg 150 mg-cob 150 mg-emtricit 1 tab PO DAILY 02/16/21 01/01/22 Unknown History 200 mg-tenofo alafenam 10 mg tablet (Genvoya) lithium carbonate 300 mg tablet 900 mg PO DAILY 02/16/21 01/01/22 Unknown History pravastatin 40 mg tablet 40 mg PO BEDTIME 02/16/21 01/01/22 Unknown History propranolol 20 mg tablet 20 mg PO DAILY 02/16/21 01/01/22 Unknown History risperidone 3 mg tablet 6 mg PO BEDTIME 02/16/21 01/01/22 Unknown History insulin aspar prot-insulin aspart 15 unit subcut DAILY@0900 03/05/21 01/01/22 Unknown History 100 unit/mL (70-30) subcutaneous pen (Novolog Mix 70-30FlexPen U-100) omeprazole 20 mg capsule,delayed 20 mg PO DAILY@0630 03/05/21 01/01/22 Unknown History release jhysjumt-rxc-azdnh acid 0.4 1 tab PO DAILY 07/27/21 01/01/22 Unknown History mg-lycopene 300 mcg-lutein 250 mcg tablet (Cerovite Senior) pregabalin 100 mg capsule 100 mg PO BID 07/27/21 01/01/22 Unknown History polyethylene glycol 3350 17 17 g PO DAILY 09/02/21 01/01/22 Unknown History gram/dose oral powder (Gavilax) ketoconazole 2 % shampoo 1 appl topical Q7D 10/12/21 01/01/22 Unknown History glucose 4 gram chewable tablet 4 g PO Q15M PRN Hypoglycemia 01/01/22 01/01/22 Unknown History insulin aspar prot-insulin aspart 17 unit subcut DAILY@2100 01/01/22 01/01/22 Unknown History 100 unit/mL (70-30) subcutaneous pen (Novolog Mix 70-30FlexPen U-100) lactulose 10 gram/15 mL oral 10 g PO DAILY PRN Constipation 01/01/22 01/01/22 Unknown History solution loperamide 2 mg capsule 2 mg PO QID PRN Diarrhea 01/01/22 01/01/22 Unknown History naproxen 500 mg tablet 500 mg PO BID PRN Pain 01/01/22 01/01/22 Unknown History risperidone 2 mg tablet 2 mg PO DAILY@0900 01/01/22 01/01/22 Unknown History sennosides 8.6 mg tablet (senna) 17.2 mg PO DAILY@0900 01/01/22 01/01/22 Unknown History Physical Exam Vital Signs: Vital Signs: Last Vital Signs Temp 98.0 F 01/04/22 11:54 Pulse 72 01/04/22 11:54 Resp 17 01/04/22 11:54 BP 112/60 01/04/22 11:54 Pulse Ox 99 01/04/22 11:54 O2 Del Method 01/04/22 11:54 BMI result Body Mass Index 21.9 Const: Other: Has tremors on upper extremities General: comfortable and no acute distress Orientation/consciousness: patient oriented x3 Neck: Neck: Yes no lymphadenopathy Resp: Auscultation: clear to auscultation bilaterally Cardio: Rhythm: regular rhythm GI: Palpation (GI): Soft to palpation, nontender and no guarding Neuro: General: patient oriented x3 Extrem: Other: Open wound in the inter phalangeal space between the 1st and 2nd, some necrotic-looking tissue, scanty discharge with thick calluses on the plantar aspect as well as on the lateral aspect the left foot Results Labs Result diagrams: 01/04/22 05:34 01/05/22 06:13 Labs: Abnormal lab results 01/03/22 01/03/22 01/03/22 Range/Units 16:12 18:56 19:03 WBC (4.8-10.8) X10*3/uL RBC (4.60-5.80) X10*6/uL Hgb (14.0-18.0) g/dl Hct (42.0-52.0) % POC Glucose 239 H 253 H (60-115) mg/dL Fasting Glucose (60-99) mg/dL Vancomycin Trough 9.2 L (10.0-20.0) mcg/mL 01/04/22 01/04/22 01/04/22 Range/Units 05:34 05:34 07:24 WBC 15.0 H (4.8-10.8) X10*3/uL RBC 3.90 L (4.60-5.80) X10*6/uL Hgb 11.7 L (14.0-18.0) g/dl Hct 34.9 L (42.0-52.0) % POC Glucose 192 H (60-115) mg/dL Fasting Glucose 192 H (60-99) mg/dL Vancomycin Trough (10.0-20.0) mcg/mL 01/04/22 Range/Units 11:23 WBC (4.8-10.8) X10*3/uL RBC (4.60-5.80) X10*6/uL Hgb (14.0-18.0) g/dl Hct (42.0-52.0) % POC Glucose 277 H (60-115) mg/dL Fasting Glucose (60-99) mg/dL Vancomycin Trough (10.0-20.0) mcg/mL Short CBC 01/04/22 Range/Units 05:34 WBC 15.0 H (4.8-10.8) X10*3/uL Hgb 11.7 L (14.0-18.0) g/dl Hct 34.9 L (42.0-52.0) % Plt Count 189 (160-400) X10*3/uL BMP 01/04/22 05:34 Sodium 137 Potassium 3.9 Chloride 105 Carbon Dioxide 24 BUN 13 Creatinine 1.30 Calcium 9.1 Urine 12/31/21 Range/Units 23:05 Urine Color Yellow Urine Appearance Clear Urine pH 6.0 (5.0-9.0) Ur Specific [place] 1.015 (1.005-1.025) Urine Protein 30 (1+) H (Neg-Trace) mg/dL Urine Glucose (UA) 250 H (Negative) mg/dL All other labs normal. Assessment and Plan (1) Diabetic foot infection: Status: Acute he has an open wound on the interphalangeal aspect of the right foot between the 1st and 2nd toes. there is note of necrotic skin and soft tissue. I therefore did sharp excisional debridement of the area using scissors. I excised skin and subcutaneous layer down to grossly viable looking tissue. The open wound after debridement was about 2 x 3 cm. I also debrided the callus on the right foot to remove thickness of skin. About 3 x 3 cm of this was removed I then applied dressings as well as a Kerlix roll to the foot. He tolerated procedure well. I will do his dressing change tomorrow to re-examine the wound and possibly repeat debridement. Procedures Date of Service Date of Service: 01/04/22
--- NOTE | 2022-01-04 14:45 | P.PNIM_ITS ---
Subjective Subjective Date of Service: 01/04/22 Interval History: the patient was seen and evaluated this morning Laying in bed, feels comfortable overall but has right lower extremity in fection in the foot Denies any fever, chills or shortness of breath No reported other overnight events. Systemic review: No fever, chills or weakness No chest pain, palpitation No shortness of breath or coughing No abdominal pain, nausea or vomiting No urinary symptoms No reported rash Physical Exam Vital Signs: Vital Signs: Last Vital Signs Temp 98.0 F 01/04/22 11:54 Pulse 72 01/04/22 11:54 Resp 17 01/04/22 11:54 BP 112/60 01/04/22 11:54 Pulse Ox 99 01/04/22 11:54 O2 Del Method 01/04/22 11:54 BMI result Body Mass Index 21.9 Const: Other: Constitutional : Awake, interactive, not in distress Neck : Normal inspection, Supple Cardiovascular : RRR, no JVP, no lower extremity edema Respiratory : good bilateral air entry, no crackles, wheezes or rhonchi Gastrointestinal: soft, lax, Normal bowel sounds, Non tender Skin : Warm, Dry, right foot between great and 2nd toes dark discoloration did skin Neurological : Alert & oriented x3, No focal deficit Objective Data Active Medications Benztropine Mesylate (Benztropine Mesylate 1 Mg Tablet) 2 mg PO BID [facility] Last Admin: 01/04/22 08:04 Dose: 2 mg Documented By: EDINSON Dextrose (Dextrose 50 % 25 Gm/50 Ml Syringe) 25 gm IVPUSH Q15M PRN; Protocol PRN Reason: per Hypoglycemia Standing Ord. Docusate Sodium (Docusate Sodium 100 Mg Capsule) 100 mg PO DAILY PRN PRN Reason: Constipation Docusate Sodium (Docusate Sodium 100 Mg Capsule) 100 mg PO BID [facility] Last Admin: 01/04/22 08:05 Dose: 100 mg Documented By: EDINSON Finasteride (Finasteride 5 Mg Tablet) 5 mg PO DAILY [facility] Last Admin: 01/04/22 08:05 Dose: 5 mg Documented By: EDINSON Glucose (Glucose Gel 15 Gm Gel..Gram.) 15 gm PO Q15M PRN; Protocol PRN Reason: per Hypoglycemia Standing Ord. Heparin Sodium (Porcine) (Heparin Sodium,Porcine 5,000 Unit/Ml Vial) 5,000 unit SUBCUT Q12H [facility] Last Admin: 01/04/22 07:55 Dose: 5,000 unit Documented By: EDINSON Cefepime HCl 2 gm/ Sodium (Chloride) 50 mls @ 100 mls/hr IV Q12H [facility] Last Infusion: 01/04/22 09:30 Dose: 0 mls/hr Documented By: EDINSON Vancomycin HCl 750 mg/ Sodium (Chloride) 265 mls @ 265 mls/hr IV Q12H [facility] Last Infusion: 01/04/22 13:00 Dose: 0 mls/hr Documented By: EDINSON Insulin Glargine (Insulin Glargine,Hum.Rec.Anlog 100 Unit/Ml 10 Ml Vial) 20 unit SUBCUT DAILY [facility] Last Admin: 01/04/22 08:27 Dose: 20 unit Documented By: EDINSON Insulin Human Lispro (Insulin Lispro 100 Unit/Ml 3 Ml Vial) 0 unit SUBCUT QIDACHS [facility]; Protocol Last Admin: 01/04/22 11:48 Dose: 6 unit Documented By: EDINSON Insulin Human Lispro (Insulin Lispro 100 Unit/Ml 3 Ml Vial) 5 unit SUBCUT QIDACHS [facility] Last Admin: 01/04/22 11:48 Dose: 5 unit Documented By: EDINSON Ketoconazole (Ketoconazole 2 % Shampoo 120 Ml Btl) 1 appl TOPICAL Mo [facility]; Protocol Last Admin: 01/03/22 11:44 Dose: Not Given Documented By: GWEN Non-Admin Reason: Patient Refused Lactulose (Lactulose 20 Gm/30 Ml Solution) 10 gm PO DAILY PRN PRN Reason: Constipation [place] Carbonate ([place] Carbonate 300 Mg Capsule) 900 mg PO DAILY [facility] Last Admin: 01/04/22 08:04 Dose: 900 mg Documented By: EDINSON Loperamide HCl (Loperamide Hcl 2 Mg Capsule) 2 mg PO QID PRN PRN Reason: Diarrhea Multivitamins/Vitamin C (Multivitamin Tablet) 1 tab PO DAILY [facility] Last Admin: 01/04/22 08:05 Dose: 1 tab Documented By: EDINSON Non-Formulary Medication (Genvoya) 1 tab PO DAILY [facility] Omeprazole (Omeprazole 20 Mg Capsule.) 20 mg PO DAILY@0630 [facility] Last Admin: 01/04/22 05:39 Dose: 20 mg Documented By: KARINA Ondansetron HCl (Ondansetron Hcl 4 Mg/2 Ml Vial) 4 mg IVPUSH Q8H PRN PRN Reason: Nausea and Vomiting Pharmacy Consult (Consult Rx Vancomycin Dosing) 1 each MISCELLANE DAILY PRN PRN Reason: Consult order Pharmacy Consult (Consult Rx Perform Med Rec) 1 each MISCELLANE ONCE PRN PRN Reason: Consult order Polyethylene Glycol (Polyethylene Glycol 3350 17 Gm Powd.Pack) 17 gm PO DAILY [facility] Last Admin: 01/04/22 08:05 Dose: 17 gm Documented By: EDINSON Pravastatin Sodium (Pravastatin Sodium 40 Mg Tablet) 40 mg PO BEDTIME [facility] Last Admin: 01/03/22 19:48 Dose: 40 mg Documented By: KARINA Pregabalin (Pregabalin 100 Mg Capsule) 100 mg PO BID [facility] Last Admin: 01/04/22 08:04 Dose: 100 mg Documented By: EDINSON Propranolol HCl (Propranolol Hcl 20 Mg Tablet) 20 mg PO DAILY [facility]; Protocol Last Admin: 01/04/22 08:04 Dose: 20 mg Documented By: EDINSON Risperidone (Risperidone 2 Mg Tablet) 2 mg PO DAILY@0900 [facility] Last Admin: 01/04/22 08:04 Dose: 2 mg Documented By: EDINSON Risperidone (Risperidone 3 Mg Tablet) 6 mg PO BEDTIME [facility] Last Admin: 01/03/22 19:48 Dose: 6 mg Documented By: KARINA Senna (Sennosides 8.6 Mg Tablet) 17.2 mg PO DAILY@0900 [facility] Last Admin: 01/04/22 08:04 Dose: 17.2 mg Documented By: EDINSON Sodium Chloride (0.9 % Sodium Chloride Flush 3 Ml Syringe) 3 ml IVFLUSH QSHIFT [facility] Last Admin: 01/04/22 07:55 Dose: 3 ml Documented By: EDINSON Tamsulosin HCl (Tamsulosin Hcl 0.4 Mg Capsule) 0.4 mg PO BEDTIME [facility] Last Admin: 01/03/22 19:48 Dose: 0.4 mg Documented By: KARINA Labs CBC & Chem 7: 01/04/22 05:34 01/04/22 05:34 Labs: Laboratory Results - last 24 hr 01/03/22 01/03/22 01/03/22 16:12 18:56 19:03 MCV MCH MCHC RDW Plt Count MPV Absolute Nucleated RBC Nucleated RBC % (auto) Anion Gap Estim Creat Clear Calc Estimated GFR POC Glucose 239 H 253 H Fasting Glucose Calcium Vancomycin Trough 9.2 L 01/04/22 01/04/22 01/04/22 05:34 05:34 07:24 MCV 89.5 MCH 30.0 MCHC 33.5 RDW 11.6 Plt Count 189 MPV 11.0 Absolute Nucleated RBC 0.000 Nucleated RBC % (auto) 0.0 Anion Gap 12 Estim Creat Clear Calc 57.9 Estimated GFR 57 POC Glucose 192 H Fasting Glucose 192 H Calcium 9.1 Vancomycin Trough 01/04/22 11:23 MCV MCH MCHC RDW Plt Count MPV Absolute Nucleated RBC Nucleated RBC % (auto) Anion Gap Estim Creat Clear Calc Estimated GFR POC Glucose 277 H Fasting Glucose Calcium Vancomycin Trough Assessment and Plan (1) Chronic osteomyelitis: Status: Acute (2) Sepsis: Status: Acute Plan 56-year-old male with past medical history of diabetes and history of diabetic foot infection presents to the hospital with fever, Found to have sepsis Sepsis due to bilateral diabetic foot ulcers continue vanc, cefepime MRI showing evidence of osteomyelitis Id suggestive oral doxycycline and Augmentin on discharge for chronic osteomyelitis Pending cultures Surgery team evaluation DM in[place]lin monitor pocs HIV genvoya DVT ppx: Heparin subq full code reason for continued hospitalization: awatiing defervesence Quality Stroke Does the patient have a stroke diagnosis?: No VTE Prior VTE?: No VTE Risk Level:: Medical - moderate - high VTE Device Contraindication: Treatment Not Indicated VTE Drug Contraindication: N/A - Med Ordered
[2022-01-04 15:13] VITALS: BP 126/69; PULSE 80; RESP 19; TEMP 36.9; O2SAT 100
[2022-01-04 15:55] LABS: Glucose, Whole Blood 213 mg/dL (60-115)
[2022-01-04 19:00] VITALS: BP 120/83; PULSE 81; RESP 19; TEMP 37.2; O2SAT 98
[2022-01-04 19:33] LABS: Glucose, Whole Blood 100 mg/dL (60-115)
[2022-01-04] MEDS: risperiDONE 3 MG TABLET 6 MG PO (20:37)
[2022-01-04] MEDS: Pravastatin Sodium 40 MG TABLET PO (20:37)
[2022-01-04] MEDS: Tamsulosin HCL 0.4 MG CAPSULE PO (20:37)
[2022-01-05] VITALS: BP 118/66; PULSE 67; RESP 18; TEMP 36.6; O2SAT 97
[2022-01-05 04:00] VITALS: BP 118/62; PULSE 70; RESP 18; TEMP 36.6; O2SAT 96
[2022-01-05] MEDS: Omeprazole 20 MG CAPSULE.DR PO (07:22)
[2022-01-05] MEDS: Heparin Sodium,Porcine 5,000 UNIT/ML VIAL 5000 UNIT SUBCUT (07:22)
[2022-01-05 07:48] VITALS: BP 118/74; PULSE 74; RESP 17; TEMP 37.1; O2SAT 99
[2022-01-05 07:59] LABS: Estimated Glomerular Filt Rate > 60
[2022-01-05] MEDS: Benztropine Mesylate 1 MG TABLET 2 MG PO ×2 (08:03→20:25)
[2022-01-05] MEDS: Propranolol HCL 20 MG TABLET PO (08:03)
[2022-01-05] MEDS: Multivitamin TABLET 1 TAB PO (08:03)
[2022-01-05] MEDS: Docusate Sodium 100 MG CAPSULE PO ×2 (08:03→20:25)
[2022-01-05] MEDS: Sennosides 8.6 MG TABLET 17.2 MG PO (08:03)
[2022-01-05] MEDS: Finasteride 5 MG TABLET PO (08:03)
[2022-01-05] MEDS: risperiDONE 2 MG TABLET PO (08:04)
[2022-01-05] MEDS: Lithium Carbonate 300 MG CAPSULE 900 MG PO (08:04)
[2022-01-05] MEDS: Insulin Lispro 100 UNIT/ML 3 ML VIAL SUBCUT ×8 (08:05→20:26)
[2022-01-05] MEDS: 0.9 % Sodium Chloride Flush 3 ML SYRINGE IVFLUSH ×3 (08:05→20:30)
[2022-01-05] MEDS: Insulin Glargine,Hum.rec.anlog 100 UNIT/ML 10 ML VIAL 20 UNIT SUBCUT (08:05)
[2022-01-05] MEDS: cefEPime HCl 2 GM in 0.9 % Sodium Chloride 50 ML IV ×2 (08:05→20:26)
[2022-01-05] MEDS: Pregabalin 100 MG CAPSULE PO ×2 (08:06→20:24)
[2022-01-05 08:12] LABS: Glucose, Whole Blood 207 mg/dL (60-115)
--- NOTE | 2022-01-05 08:53 | P.PNGS_ITS ---
Subjective Subjective Date of Service: 01/05/22 Interval history: Denies foot pain No documented fever Physical Exam Vital Signs: Vital Signs: Last Vital Signs Temp 98.8 F 01/05/22 07:48 Pulse 74 01/05/22 07:48 Resp 17 01/05/22 07:48 BP 118/74 01/05/22 07:48 Pulse Ox 99 01/05/22 07:48 O2 Del Method 01/05/22 07:48 BMI result Body Mass Index 21.9 Const: Other: With tremors General: comfortable and no acute distress Resp: Effort & Inspection: normal respiratory effort Cardio: Rate: regular rate Extrem: Other: Open wound, right foot between 1st and 2nd toes with fibrinous debris Objective Data Active Medications Benztropine Mesylate (Benztropine Mesylate 1 Mg Tablet) 2 mg PO BID [facility] Last Admin: 01/05/22 08:03 Dose: 2 mg Documented By: CHANDRIKA Dextrose (Dextrose 50 % 25 Gm/50 Ml Syringe) 25 gm IVPUSH Q15M PRN; Protocol PRN Reason: per Hypoglycemia Standing Ord. Docusate Sodium (Docusate Sodium 100 Mg Capsule) 100 mg PO DAILY PRN PRN Reason: Constipation Docusate Sodium (Docusate Sodium 100 Mg Capsule) 100 mg PO BID [facility] Last Admin: 01/05/22 08:03 Dose: 100 mg Documented By: CHANDRIKA Finasteride (Finasteride 5 Mg Tablet) 5 mg PO DAILY [facility] Last Admin: 01/05/22 08:03 Dose: 5 mg Documented By: CHANDRIKA Glucose (Glucose Gel 15 Gm Gel..Gram.) 15 gm PO Q15M PRN; Protocol PRN Reason: per Hypoglycemia Standing Ord. Heparin Sodium (Porcine) (Heparin Sodium,Porcine 5,000 Unit/Ml Vial) 5,000 unit SUBCUT Q12H [facility] Last Admin: 01/05/22 07:22 Dose: 5,000 unit Documented By: KARINA Cefepime HCl 2 gm/ Sodium (Chloride) 50 mls @ 100 mls/hr IV Q12H [facility] Last Infusion: 01/05/22 08:27 Dose: 0 mls/hr Documented By: CHANDRIKA Vancomycin HCl 750 mg/ Sodium (Chloride) 265 mls @ 265 mls/hr IV Q12H [facility] Last Infusion: 01/04/22 23:05 Dose: 0 mls/hr Documented By: KARINA Insulin Glargine (Insulin Glargine,Hum.Rec.Anlog 100 Unit/Ml 10 Ml Vial) 20 unit SUBCUT DAILY [facility] Last Admin: 01/05/22 08:05 Dose: 20 unit Documented By: CHANDRIKA Insulin Human Lispro (Insulin Lispro 100 Unit/Ml 3 Ml Vial) 0 unit SUBCUT QIDACHS [facility]; Protocol Last Admin: 01/05/22 08:06 Dose: 4 unit Documented By: CHANDRIKA Insulin Human Lispro (Insulin Lispro 100 Unit/Ml 3 Ml Vial) 5 unit SUBCUT QIDACHS [facility] Last Admin: 01/05/22 08:05 Dose: 5 unit Documented By: CHANDRIKA Ketoconazole (Ketoconazole 2 % Shampoo 120 Ml Btl) 1 appl TOPICAL Mo [facility]; Protocol Last Admin: 01/03/22 11:44 Dose: Not Given Documented By: GWEN Non-Admin Reason: Patient Refused Lactulose (Lactulose 20 Gm/30 Ml Solution) 10 gm PO DAILY PRN PRN Reason: Constipation [place] Carbonate ([place] Carbonate 300 Mg Capsule) 900 mg PO DAILY [facility] Last Admin: 01/05/22 08:04 Dose: 900 mg Documented By: CHANDRIKA Loperamide HCl (Loperamide Hcl 2 Mg Capsule) 2 mg PO QID PRN PRN Reason: Diarrhea Multivitamins/Vitamin C (Multivitamin Tablet) 1 tab PO DAILY [facility] Last Admin: 01/05/22 08:03 Dose: 1 tab Documented By: CHANDRIKA Non-Formulary Medication (Genvoya) 1 tab PO DAILY [facility] Omeprazole (Omeprazole 20 Mg Capsule.) 20 mg PO DAILY@0630 [facility] Last Admin: 01/05/22 07:22 Dose: 20 mg Documented By: KARINA Ondansetron HCl (Ondansetron Hcl 4 Mg/2 Ml Vial) 4 mg IVPUSH Q8H PRN PRN Reason: Nausea and Vomiting Pharmacy Consult (Consult Rx Vancomycin Dosing) 1 each MISCELLANE DAILY PRN PRN Reason: Consult order Pharmacy Consult (Consult Rx Perform Med Rec) 1 each MISCELLANE ONCE PRN PRN Reason: Consult order Polyethylene Glycol (Polyethylene Glycol 3350 17 Gm Powd.Pack) 17 gm PO DAILY [facility] Last Admin: 01/05/22 08:12 Dose: Not Given Documented By: CHANDRIKA Non-Admin Reason: Patient Refused Pravastatin Sodium (Pravastatin Sodium 40 Mg Tablet) 40 mg PO BEDTIME [facility] Last Admin: 01/04/22 20:37 Dose: 40 mg Documented By: KARINA Pregabalin (Pregabalin 100 Mg Capsule) 100 mg PO BID [facility] Last Admin: 01/05/22 08:06 Dose: 100 mg Documented By: CHANDRIKA Propranolol HCl (Propranolol Hcl 20 Mg Tablet) 20 mg PO DAILY [facility]; Protocol Last Admin: 01/05/22 08:03 Dose: 20 mg Documented By: CHANDRIKA Risperidone (Risperidone 2 Mg Tablet) 2 mg PO DAILY@0900 [facility] Last Admin: 01/05/22 08:04 Dose: 2 mg Documented By: CHANDRIKA Risperidone (Risperidone 3 Mg Tablet) 6 mg PO BEDTIME [facility] Last Admin: 01/04/22 20:37 Dose: 6 mg Documented By: KARINA Senna (Sennosides 8.6 Mg Tablet) 17.2 mg PO DAILY@0900 [facility] Last Admin: 01/05/22 08:03 Dose: 17.2 mg Documented By: CHANDRIKA Sodium Chloride (0.9 % Sodium Chloride Flush 3 Ml Syringe) [facility] Admin: 01/05/22 08:05 Dose: 3 ml Documented By: CHANRDIKA Tamsulosin HCl (Tamsulosin Hcl 0.4 Mg Capsule) 0.4 mg PO BEDTIME [facility] Last Admin: 01/04/22 20:37 Dose: 0.4 mg Documented By: KARINA Labs CBC & Chem 7: 01/04/22 05:34 01/05/22 06:13 Labs: Laboratory Results - last 24 hr 01/04/22 01/04/22 01/04/22 11:23 15:16 19:24 Estim Creat Clear Calc Estimated GFR POC Glucose 277 H 213 H 100 01/05/22 01/05/22 06:13 07:47 Estim Creat Clear Calc 69.0 Estimated GFR > 60 POC Glucose 207 H Procedures Date of Service Date of Service: 01/05/22 Progress Note: A&P Assessment and plan (1) Diabetic foot infection: Status: Acute Assessment and Plan: Open would debrided bluntly at bedside Much improved compared to yesterday prior to sharp debridement Dressings were applied - dry gauze and foot wrapped with Kerlix Will follow-up for wound care for now hemodynamically stable Time Spent With Patient Time: Total time spent is greater than 50% in coordination of care (as documented) at patient's floor/unit and/or counseling patient: Quality Stroke Does the patient have a stroke diagnosis?: No VTE Prior VTE?: No VTE Risk Level:: Medical - moderate - high VTE Device Contraindication: Treatment Not Indicated VTE Drug Contraindication: N/A - Med Ordered
[2022-01-05 11:34] LABS: Glucose, Whole Blood 243 mg/dL (60-115)
[2022-01-05] MEDS: vancomycin HCL 750 MG in 0.9 % Sodium Chloride 250 ML 265 MG IV ×2 (11:48→22:02)
[2022-01-05 12:00] VITALS: BP 108/62; PULSE 71; RESP 18; TEMP 36.8; O2SAT 100
--- NOTE | 2022-01-05 12:05 | HO.PM.IMPN ---
Subjective Subjective Date of Service: 01/05/22 Interval History: This history was taken in Amharic from the patient. No fever No pain in foot Review of Systems Review of Systems: Yes all other systems are reviewed and are negative Physical Exam Vital Signs: Vital Signs: Last Vital Signs Temp 98.8 F 01/05/22 07:48 Pulse 74 01/05/22 07:48 Resp 17 01/05/22 07:48 BP 118/74 01/05/22 07:48 Pulse Ox 99 01/05/22 07:48 O2 Del Method 01/05/22 07:48 BMI result Body Mass Index 21.9 Gen: in no acute distress HEENT: sclera anicteric, moist mucus membranes Neck: supple Lungs: clear to auscultation bilaterally Heart: regular rate and rhythm, no murmurs Abd: soft, non-tender, non-distended Ext: no edema Skin: warm/well-perfused, wound in space between R 1st and 2nd toes Neuro: alert and oriented x3, no focal findings Psych: appropriate affect Objective Data Active Medications Benztropine Mesylate (Benztropine Mesylate 1 Mg Tablet) 2 mg PO BID [facility] Last Admin: 01/05/22 08:03 Dose: 2 mg Documented By: CHANDRIKA Dextrose (Dextrose 50 % 25 Gm/50 Ml Syringe) 25 gm IVPUSH Q15M PRN; Protocol PRN Reason: per Hypoglycemia Standing Ord. Docusate Sodium (Docusate Sodium 100 Mg Capsule) 100 mg PO DAILY PRN PRN Reason: Constipation Docusate Sodium (Docusate Sodium 100 Mg Capsule) 100 mg PO BID [facility] Last Admin: 01/05/22 08:03 Dose: 100 mg Documented By: CHANDRIKA Finasteride (Finasteride 5 Mg Tablet) 5 mg PO DAILY [facility] Last Admin: 01/05/22 08:03 Dose: 5 mg Documented By: CHANDRIKA Glucose (Glucose Gel 15 Gm Gel..Gram.) 15 gm PO Q15M PRN; Protocol PRN Reason: per Hypoglycemia Standing Ord. Heparin Sodium (Porcine) (Heparin Sodium,Porcine 5,000 Unit/Ml Vial) 5,000 unit SUBCUT Q12H [facility] Last Admin: 01/05/22 07:22 Dose: 5,000 unit Documented By: KARINA Cefepime HCl 2 gm/ Sodium (Chloride) 50 mls @ 100 mls/hr IV Q12H [facility] Last Infusion: 01/05/22 09:48 Dose: 0 mls/hr Documented By: CHANDRIKA Vancomycin HCl 750 mg/ Sodium (Chloride) 265 mls @ 265 mls/hr IV Q12H [facility] Last Admin: 01/05/22 11:48 Dose: 265 mls/hr Documented By: CHANDRIKA Insulin Glargine (Insulin Glargine,Hum.Rec.Anlog 100 Unit/Ml 10 Ml Vial) 20 unit SUBCUT DAILY [facility] Last Admin: 01/05/22 08:05 Dose: 20 unit Documented By: CHANDRIKA Insulin Human Lispro (Insulin Lispro 100 Unit/Ml 3 Ml Vial) 0 unit SUBCUT QIDACHS [facility]; Protocol Last Admin: 01/05/22 11:49 Dose: 4 unit Documented By: CHANDRIKA Insulin Human Lispro (Insulin Lispro 100 Unit/Ml 3 Ml Vial) 5 unit SUBCUT QIDACHS [facility] Last Admin: 01/05/22 11:50 Dose: 5 unit Documented By: CHANDRIKA Ketoconazole (Ketoconazole 2 % Shampoo 120 Ml Btl) 1 appl TOPICAL Mo [facility]; Protocol Last Admin: 01/03/22 11:44 Dose: Not Given Documented By: GWEN Non-Admin Reason: Patient Refused Lactulose (Lactulose 20 Gm/30 Ml Solution) 10 gm PO DAILY PRN PRN Reason: Constipation [place] Carbonate ([place] Carbonate 300 Mg Capsule) 900 mg PO DAILY [facility] Last Admin: 01/05/22 08:04 Dose: 900 mg Documented By: CHANDRIKA Loperamide HCl (Loperamide Hcl 2 Mg Capsule) 2 mg PO QID PRN PRN Reason: Diarrhea Multivitamins/Vitamin C (Multivitamin Tablet) 1 tab PO DAILY [facility] Last Admin: 01/05/22 08:03 Dose: 1 tab Documented By: CHANDRIKA Non-Formulary Medication (Genvoya) 1 tab PO DAILY [facility] Omeprazole (Omeprazole 20 Mg Capsule.) 20 mg PO DAILY@0630 [facility] Last Admin: 01/05/22 07:22 Dose: 20 mg Documented By: KARINA Ondansetron HCl (Ondansetron Hcl 4 Mg/2 Ml Vial) 4 mg IVPUSH Q8H PRN PRN Reason: Nausea and Vomiting Pharmacy Consult (Consult Rx Vancomycin Dosing) 1 each MISCELLANE DAILY PRN PRN Reason: Consult order Pharmacy Consult (Consult Rx Perform Med Rec) 1 each MISCELLANE ONCE PRN PRN Reason: Consult order Polyethylene Glycol (Polyethylene Glycol 3350 17 Gm Powd.Pack) 17 gm PO DAILY [facility] Last Admin: 01/05/22 08:12 Dose: Not Given Documented By: CHANDRIKA Non-Admin Reason: Patient Refused Pravastatin Sodium (Pravastatin Sodium 40 Mg Tablet) 40 mg PO BEDTIME [facility] Last Admin: 01/04/22 20:37 Dose: 40 mg Documented By: KARINA Pregabalin (Pregabalin 100 Mg Capsule) 100 mg PO BID [facility] Last Admin: 01/05/22 08:06 Dose: 100 mg Documented By: CHANDRIKA Propranolol HCl (Propranolol Hcl 20 Mg Tablet) 20 mg PO DAILY [facility]; Protocol Last Admin: 01/05/22 08:03 Dose: 20 mg Documented By: CHANDRIKA Risperidone (Risperidone 2 Mg Tablet) 2 mg PO DAILY@0900 [facility] Last Admin: 01/05/22 08:04 Dose: 2 mg Documented By: CHANDRIKA Risperidone (Risperidone 3 Mg Tablet) 6 mg PO BEDTIME [facility] Last Admin: 01/04/22 20:37 Dose: 6 mg Documented By: KARINA Senna (Sennosides 8.6 Mg Tablet) 17.2 mg PO DAILY@0900 [facility] Last Admin: 01/05/22 08:03 Dose: 17.2 mg Documented By: CHANDRIKA Sodium Chloride (0.9 % Sodium Chloride Flush 3 Ml Syringe) 3 ml IVFLUSH QSHIFT [facility] Last Admin: 01/05/22 08:05 Dose: 3 ml Documented By: CHANDRIKA Tamsulosin HCl (Tamsulosin Hcl 0.4 Mg Capsule) 0.4 mg PO BEDTIME [facility] Last Admin: 01/04/22 20:37 Dose: 0.4 mg Documented By: KARINA Labs CBC & Chem 7: 01/04/22 05:34 01/05/22 06:13 Labs: Laboratory Results - last 24 hr 01/04/22 01/04/22 01/05/22 15:16 19:24 06:13 Estim Creat Clear Calc 69.0 Estimated GFR > 60 POC Glucose 213 H 100 Vancomycin Trough 01/05/22 01/05/2222 07:47 09:03 11:26 Estim Creat Clear Calc Estimated GFR POC Glucose 207 H 243 H Vancomycin Trough 15.0 Assessment and Plan (1) Chronic osteomyelitis: Status: Acute (2) Sepsis: Status: Acute Plan hospital d#5 56yo M with DM2, [facility] admitted for sepsis from DM foot ulcers # DM foot infection - vanc + cefepime d#5 - chronic osteomyelitis per ID, d/c on doxycycline + amox/clav x14d - bedside debridement by Gen Surg 01/04 and 01/05; wound care with dry gauze and Kerlix wrap # DM2 - basal/bolus insulin # HIV - controlled per ID, continue Genvoya [jail staff needs to bring in to hospital # mood disorder - continue benztropine, lithium, propranolol, pregabalin, risperidone # VTE ppx: [facility]FH # dispo: jail In my clinical judgment, the patient requires continued inpatient hospitalization for the following reasons: inpt wound mgmt, IV ABX Quality Stroke Does the patient have a stroke diagnosis?: No VTE Prior VTE?: No VTE Risk Level:: Medical - moderate - high VTE Device Contraindication: Treatment Not Indicated VTE Drug Contraindication: N/A - Med Ordered
[2022-01-05 15:00] VITALS: BP 112/70; PULSE 89; RESP 17; TEMP 36.9; O2SAT 95
[2022-01-05 18:50] LABS: Glucose, Whole Blood 163 mg/dL (60-115)
[2022-01-05 19:04] VITALS: BP 134/86; PULSE 83; RESP 16; TEMP 37.1; O2SAT 98
[2022-01-05 19:31] LABS: Glucose, Whole Blood 214 mg/dL (60-115)
[2022-01-05] MEDS: risperiDONE 3 MG TABLET 6 MG PO (20:24)
[2022-01-05] MEDS: Tamsulosin HCL 0.4 MG CAPSULE PO (20:24)
[2022-01-05] MEDS: Pravastatin Sodium 40 MG TABLET PO (20:25)
[2022-01-06] VITALS: BP 96/53; PULSE 75; RESP 18; TEMP 37.1; O2SAT 96
[2022-01-06 04:00] VITALS: BP 101/52; PULSE 69; RESP 18; TEMP 37.2; O2SAT 98
[2022-01-06 06:08] LABS: Anion Gap 13 (12-20); Blood Urea Nitrogen 13 mg/dL (9-16); C Reactive Protein 11.17 mg/dL (< or = 0.50); Calcium 9.2 mg/dL (8.4-10.2); Carbon Dioxide 24 mmol/L (22-29); Chloride 102 mmol/L (96-108); Creatinine Clr Calc Pharmacy 64.3; Estimated Glomerular Filt Rate > 60; Glucose Random 182 mg/dL (60-115); Sodium 135 mmol/L (135-145)
[2022-01-06] MEDS: Omeprazole 20 MG CAPSULE.DR PO (06:10)
[2022-01-06] MEDS: Heparin Sodium,Porcine 5,000 UNIT/ML VIAL 5000 UNIT SUBCUT (06:10)
[2022-01-06 06:18] LABS: Hematocrit 33.3 % (42.0-52.0); Hemoglobin 11.4 g/dl (14.0-18.0); Mean Corpuscular HGB Conc 34.2 g/dl (31.0-36.0); Mean Corpuscular Hemoglobin 30.1 pg (27.0-33.0); Mean Corpuscular Volume 87.9 fL (80.0-98.0); Mean Platelet Volume 11.9 fL (9.4-12.4); Platelet Count 206 X10*3/uL (160-400); Red Blood Count 3.79 X10*6/uL (4.60-5.80); Red Cell Distribution Width 11.6 % (11.0-16.0); White Blood Count 14.6 X10*3/uL (4.8-10.8)
[2022-01-06 06:44] LABS: Erythrocyte Sedimentation Rate 96 MM/HR (0-15)
[2022-01-06 08:00] VITALS: BP 143/64; PULSE 69; RESP 18; TEMP 37.1; O2SAT 96
[2022-01-06 08:08] LABS: Glucose, Whole Blood 183 mg/dL (60-115)
[2022-01-06] MEDS: Multivitamin TABLET 1 TAB PO (08:20)
[2022-01-06] MEDS: risperiDONE 2 MG TABLET PO (08:20)
[2022-01-06] MEDS: Sennosides 8.6 MG TABLET 17.2 MG PO (08:20)
[2022-01-06] MEDS: Benztropine Mesylate 1 MG TABLET 2 MG PO (08:20)
[2022-01-06] MEDS: Lithium Carbonate 300 MG CAPSULE 900 MG PO (08:21)
[2022-01-06] MEDS: Propranolol HCL 20 MG TABLET PO (08:21)
[2022-01-06] MEDS: Pregabalin 100 MG CAPSULE PO (08:21)
[2022-01-06] MEDS: Finasteride 5 MG TABLET PO (08:21)
[2022-01-06] MEDS: Docusate Sodium 100 MG CAPSULE PO (08:21)
[2022-01-06] MEDS: 0.9 % Sodium Chloride Flush 3 ML SYRINGE IVFLUSH (08:22)
[2022-01-06] MEDS: cefEPime HCl 2 GM in 0.9 % Sodium Chloride 50 ML IV (08:22)
[2022-01-06] MEDS: Insulin Lispro 100 UNIT/ML 3 ML VIAL SUBCUT ×4 (08:22→12:14)
[2022-01-06] MEDS: Insulin Glargine,Hum.rec.anlog 100 UNIT/ML 10 ML VIAL 20 UNIT SUBCUT (08:23)
--- NOTE | 2022-01-06 09:26 | PM.PNGS ---
Subjective Subjective Date of Service: 01/06/22 Interval history: Says he wants to be discharged Feels well Physical Exam Vital Signs: Vital Signs: Last Vital Signs Temp 98.7 F 01/06/22 08:00 Pulse 69 01/06/22 08:00 Resp 18 01/06/22 08:00 BP 143/64 H 01/06/22 08:00 Pulse Ox 96 01/06/22 08:00 O2 Del Method 01/06/22 08:00 BMI result Body Mass Index 21.9 Const: General: comfortable and no acute distress Resp: Effort & Inspection: normal respiratory effort Cardio: Rate: regular rate Extrem: Other: Right foot with open wound between the 1st and 2nd toes, Objective Data Active Medications Benztropine Mesylate (Benztropine Mesylate 1 Mg Tablet) 2 mg PO BID [facility] Last Admin: 01/06/22 08:20 Dose: 2 mg Documented By: CHANDRIKA Dextrose (Dextrose 50 % 25 Gm/50 Ml Syringe) 25 gm IVPUSH Q15M PRN; Protocol PRN Reason: per Hypoglycemia Standing Ord. Docusate Sodium (Docusate Sodium 100 Mg Capsule) 100 mg PO DAILY PRN PRN Reason: Constipation Docusate Sodium (Docusate Sodium 100 Mg Capsule) 100 mg PO BID [facility] Last Admin: 01/06/22 08:21 Dose: 100 mg Documented By: CHANDRIKA Finasteride (Finasteride 5 Mg Tablet) 5 mg PO DAILY [facility] Last Admin: 01/06/22 08:21 Dose: 5 mg Documented By: CHANDRIKA Glucose (Glucose Gel 15 Gm Gel..Gram.) 15 gm PO Q15M PRN; Protocol PRN Reason: per Hypoglycemia Standing Ord. Heparin Sodium (Porcine) (Heparin Sodium,Porcine 5,000 Unit/Ml Vial) 5,000 unit SUBCUT Q12H [facility] Last Admin: 01/06/22 06:10 Dose: 5,000 unit Documented By: KARINA Cefepime HCl 2 gm/ Sodium (Chloride) 50 mls @ 100 mls/hr IV Q12H [facility] Last Infusion: 01/06/22 08:31 Dose: 0 mls/hr Documented By: CHANDRIKA Vancomycin HCl 750 mg/ Sodium (Chloride) 265 mls @ 265 mls/hr IV Q12H [facility] Last Infusion: 11/30/22 23:21 Dose: 0 mls/hr Documented By: KARINA Insulin Glargine (Insulin Glargine,Hum.Rec.Anlog 100 Unit/Ml 10 Ml Vial) 20 unit SUBCUT DAILY [facility] Last Admin: 01/06/22 08:23 Dose: 20 unit Documented By: CHANDRIKA Insulin Human Lispro (Insulin Lispro 100 Unit/Ml 3 Ml Vial) 0 unit SUBCUT QIDACHS [facility]; Protocol Last Admin: 01/06/22 08:22 Dose: 2 unit Documented By: CHANDRIKA Insulin Human Lispro (Insulin Lispro 100 Unit/Ml 3 Ml Vial) 5 unit SUBCUT QIDACHS [facility] Last Admin: 01/06/22 08:22 Dose: 5 unit Documented By: CHANDRIKA Ketoconazole (Ketoconazole 2 % Shampoo 120 Ml Btl) 1 appl TOPICAL Mo [facility]; Protocol Last Admin: 01/03/22 11:44 Dose: Not Given Documented By: GWEN Non-Admin Reason: Patient Refused Lactulose (Lactulose 20 Gm/30 Ml Solution) 10 gm PO DAILY PRN PRN Reason: Constipation Minkler Carbonate (Minkler Carbonate 300 Mg Capsule) 900 mg PO DAILY [facility] Last Admin: 01/06/22 08:21 Dose: 900 mg Documented By: CHANDRIKA Loperamide HCl (Loperamide Hcl 2 Mg Capsule) 2 mg PO QID PRN PRN Reason: Diarrhea Multivitamins/Vitamin C (Multivitamin Tablet) 1 tab PO DAILY [facility] Last Admin: 01/06/22 08:20 Dose: 1 tab Documented By: CHANDRIKA Pt Own (Genvoya) 1 tab PO DAILY [facility] Last Admin: 01/06/22 08:21 Dose: 1 tab Documented By: CHANDRIKA Omeprazole (Omeprazole 20 Mg Capsule.) 20 mg PO DAILY@0630 [facility] Last Admin: 01/06/22 06:10 Dose: 20 mg Documented By: KARINA Ondansetron HCl (Ondansetron Hcl 4 Mg/2 Ml Vial) 4 mg IVPUSH Q8H PRN PRN Reason: Nausea and Vomiting Pharmacy Consult (Consult Rx Vancomycin Dosing) 1 each MISCELLANE DAILY PRN PRN Reason: Consult order Pharmacy Consult (Consult Rx Perform Med Rec) 1 each MISCELLANE ONCE PRN PRN Reason: Consult order Polyethylene Glycol (Polyethylene Glycol 3350 17 Gm Powd.Pack) 17 gm PO DAILY [facility] Last Admin: 01/06/22 08:23 Dose: Not Given Documented By: CHANDRIKA Non-Admin Reason: Patient Refused Pravastatin Sodium (Pravastatin Sodium 40 Mg Tablet) 40 mg PO BEDTIME [facility] Last Admin: 01/05/22 20:25 Dose: 40 mg Documented By: KARINA Pregabalin (Pregabalin 100 Mg Capsule) 100 mg PO BID [facility] Last Admin: 01/06/22 08:21 Dose: 100 mg Documented By: CHANDRIKA Propranolol HCl (Propranolol Hcl 20 Mg Tablet) 20 mg PO DAILY [facility]; Protocol Last Admin: 01/06/22 08:21 Dose: 20 mg Documented By: CHANDRIKA Risperidone (Risperidone 2 Mg Tablet) 2 mg PO DAILY@0900 [facility] Last Admin: 01/06/22 08:20 Dose: 2 mg Documented By: CHANDRIKA Risperidone (Risperidone 3 Mg Tablet) 6 mg PO BEDTIME [facility] Last Admin: 01/05/22 20:24 Dose: 6 mg Documented By: KARINA Senna (Sennosides 8.6 Mg Tablet) 17.2 mg PO DAILY@0900 [facility] Last Admin: 01/06/22 08:20 Dose: 17.2 mg Documented By: CHANDRIKA Sodium Chloride (0.9 % Sodium Chloride Flush 3 Ml Syringe) 3 ml IVFLUSH QSHIFT [facility] Last Admin: 01/06/22 08:22 Dose: 3 ml Documented By: CHANDRIKA Tamsulosin HCl (Tamsulosin Hcl 0.4 Mg Capsule) 0.4 mg PO BEDTIME [facility] Last Admin: 01/05/22 20:24 Dose: 0.4 mg Documented By: KARINA Labs CBC & Chem 7: 01/06/22 05:07 01/06/22 05:07 Labs: Laboratory Results - last 24 hr 01/05/22 01/05/22 01/05/22 09:03 11:26 15:04 MCV MCH MCHC RDW Plt Count MPV Absolute Nucleated RBC Nucleated RBC % (auto) ESR Anion Gap Estim Creat Clear Calc Estimated GFR POC Glucose 243 H 163 H Random Glucose Calcium C-Reactive Protein Vancomycin Trough 15.0 01/05/22 01/06/22 01/06/22 19:07 05:07 05:07 MCV 87.9 MCH 30.1 MCHC 34.2 RDW 11.6 Plt Count 206 MPV 11.9 Absolute Nucleated RBC 0.000 Nucleated RBC % (auto) 0.0 ESR Anion Gap 13 Estim Creat Clear Calc 64.3 Estimated GFR > 60 POC Glucose 214 H Random Glucose 182 H Calcium 9.2 C-Reactive Protein 11.17 H Vancomycin Trough 01/06/22 01/06/22 05:07 07:51 MCV MCH MCHC RDW Plt Count MPV Absolute Nucleated RBC Nucleated RBC % (auto) ESR 96 H Anion Gap Estim Creat Clear Calc Estimated GFR POC Glucose 183 H Random Glucose Calcium C-Reactive Protein Vancomycin Trough Microbiology Microbiology Results: Microbiology 12/31/21 22:23 Blood Culture - Final Blood - Venous No growth after 5 days. 12/31/21 22:18 Blood Culture - Final Blood - Venous No growth after 5 days. Procedures Date of Service Date of Service: 01/06/22 Progress Note: A&P Assessment and plan (1) Diabetic foot infection: Status: Acute Assessment and Plan: Status post debridement The wound looks much improved Clean, with no obvious ongoing gangrene I applied silver alginate dressings and wrapped the foot with Morgan roll Okay to [place] home with silver alginate dressings daily Time Spent With Patient Time: Total time spent is greater than 50% in coordination of care (as documented) at patient's floor/unit and/or counseling patient: Quality Stroke Does the patient have a stroke diagnosis?: No VTE Prior VTE?: No VTE Risk Level:: Medical - moderate - high VTE Device Contraindication: Treatment Not Indicated VTE Drug Contraindication: N/A - Med Ordered
[2022-01-06 09:30] LABS: Vancomycin Trough 15.1 mcg/mL (10.0-20.0)
--- NOTE | 2022-01-06 09:47 | HE.PHANOTE ---
Vancomycin Dosing Addendum Patients Scr is up from yesterday at 1.17 from 1.09. PAtients level came back at 15.1 mg/L. Continue 750mg Q12H, predicted AUC 420 mg/L/hr. Next level 01/08 @0900
--- NOTE | 2022-01-06 09:47 | PM.DS ---
DS: Providers Provider Date of Service: 01/06/22 Date of admission: 01/01/22 05:38 Primary care physician: Shell Lopez MD Consults: 01/01/22 05:36 Consult to Infectious Diseases Routine Consulting Provider: Angie Wade Reason for consultation: feet wound Has provider been notified: No 01/03/22 11:06 Consult to General Surgery Routine Consulting Provider: Nigel Osman Reason for consultation: bilateral foot ulcers, ?debridement DS: Diagnosis Discharge Diagnosis (1) Diabetic foot infection: Status: Acute (2) HIV (human immunodeficiency virus infection): Status: Acute (3) Mood disorder: Status: Acute (4) Diabetes: Status: Acute DS: Summary Hospital Course Hospital Course: HPI: 56-year-old male with past medical history of chronic prostatitis, diabetic foot ulcer, history of HIV, history of hepatitis, as well as BPH presents [facility] the hospital [facility] with fever, and generally not feeling well.? There is also report of flu-like symptoms.? Patient is not cooperating, not responding to my questions.? Patient was talking to the ED physician but when I went to asking questions he has his eyes closed.? He is in no distress. Unable to obtain review of system. According to the EMR patient has history of diabetic foot infections, and denied cough, shortness of breath to the ED physician.? He has chronic calluses on both the and denied any discharge. On arrival to the ED patient had a temperature of 102 degrees other vitals normal Labs are significant for WBC count of 18.5, hemoglobin 13, hematocrit 37.5, ESR 63, CRP of 13.7, UA negative, Bilateral foot x-ray shows soft tissue gas at the plantar aspect of the right forefoot with soft tissue irregularity, and soft tissue irregularity at the lateral aspect of the left foot at the level of the 5th metatarsophalangeal joint Patient's started on IV antibiotics and will be admitted for further management Hospital course: Patient was admitted and initiated on broad-spectrum IV antibiotics. General surgery was consulted who did wound debridement. Consulted IR who felt that the patient did not need IV antibiotics for chronic osteomyelitis. Patient to be discharged on p.o. doxycycline plus amoxy/clav as per ID recommendations. Patient to be discharged with silver alginate dressings daily. Continue wound care at home Status at Discharge Functional status at discharge: independent ambulation Time Spent with Patient Time attestation: Total time spent providing and/or coordinating discharge services: Discharge coordination time: Greater than 30 minutes Quality: Safe Use of Opioids Does Pt have an Active Cancer Diagnosis on the Problem List?: No Quality: Stroke Does the patient have a stroke diagnosis?: No Physical Exam Vital Signs: Vital Signs: Last Vital Signs Temp 98.7 F 01/06/22 08:00 Pulse 69 01/06/22 08:00 Resp 18 01/06/22 08:00 BP 143/64 H 01/06/22 08:00 Pulse Ox 96 01/06/22 08:00 O2 Del Method 01/06/22 08:00 BMI result Body Mass Index 21.9 Const:?? General: comfortab le and no acute di stress Resp:?? Effort & Inspectio n: normal respirat ory effort Cardio:?? Rate: regular rate Extrem:?? Other: Right foot with open wound be tween the 1st and 2nd toes, DS: Data Data Completed and Pending Completed studies during hospitalization [Text1]: Procedures Excision of Right Foot Skin, External Approach (06/15/21) Excision of Right Foot Subcutaneous Tissue and Fascia, Open Approach (07/27/21) Insertion of Infusion Device into Superior Vena Cava, Percutaneous Approach (03/05/21) Labs on day of discharge: Laboratory Results - last 24 hr 01/05/22 01/05/22 01/05/22 11:26 15:04 19:07 WBC RBC Hgb Hct MCV MCH MCHC RDW Plt Count MPV Absolute Nucleated RBC Nucleated RBC % (auto) ESR Sodium Potassium Chloride Carbon Dioxide Anion Gap BUN Creatinine Estim Creat Clear Calc Estimated GFR POC Glucose 243 H 163 H 214 H Random Glucose Calcium C-Reactive Protein Vancomycin Trough 01/06/22 01/06/22 01/06/22 05:07 05:07 05:07 WBC 14.6 H RBC 3.79 L Hgb 11.4 L Hct 33.3 L MCV 87.9 MCH 30.1 MCHC 34.2 RDW 11.6 Plt Count 206 MPV 11.9 Absolute Nucleated RBC 0.000 Nucleated RBC % (auto) 0.0 ESR 96 H Sodium 135 Potassium 4.0 Chloride 102 Carbon Dioxide 24 Anion Gap 13 BUN 13 Creatinine 1.17 Estim Creat Clear Calc 64.3 Estimated GFR > 60 POC Glucose Random Glucose 182 H Calcium 9.2 C-Reactive Protein 11.17 H Vancomycin Trough 01/06/22 01/06/22 07:51 08:55 WBC RBC Hgb Hct MCV MCH MCHC RDW Plt Count MPV Absolute Nucleated RBC Nucleated RBC % (auto) ESR Sodium Potassium Chloride Carbon Dioxide Anion Gap BUN Creatinine Estim Creat Clear Calc Estimated GFR POC Glucose 183 H Random Glucose Calcium C-Reactive Protein Vancomycin Trough 15.1 Imaging Chest x-ray: Radiologist's impression: ITS Impressions Chest X-Ray 12/31/21 21:44 IMPRESSION: No acute intrathoracic disease. Foot X-Ray 01/01/22 02:30 IMPRESSION: 1. Soft tissue gas at the plantar aspect of the right forefoot with soft tissue irregularity. No osseous erosions are seen. 2. Soft tissue irregularity at the lateral aspect of the left foot at the level of the fifth metatarsophalangeal joint. No osseous erosion. Foot X-Ray 01/01/22 02:30 IMPRESSION: 1. Soft tissue gas at the plantar aspect of the right forefoot with soft tissue irregularity. No osseous erosions are seen. 2. Soft tissue irregularity at the lateral aspect of the left foot at the level of the fifth metatarsophalangeal joint. No osseous erosion. Foot MRI 01/03/22 13:04 IMPRESSION: 1. Soft tissue ulceration along the plantar aspect of the 1st metatarsal head with associated cellulitis. No organized fluid collection/abscess formation. 2. Attenuation/cortical erosion along the plantar aspect of the tibial hallux sesamoid without significant postcontrast enhancement. Findings could represent sequela of chronic osteomyelitis. No significant marrow edema to suggest more acute osteomyelitis. 3. Mild osteoarthritis at the 1st and 2nd tarsometatarsal joints. 4. Diffuse edema throughout the intrinsic foot musculature which can be seen in diabetic patients. Discharge Plan Discharge Anticipated Discharge Date/Time: 01/06/22 11:52 Patient Disposition: Home, Self-Care Discharge Diagnosis: Diabetic foot infection Referrals: Shell Lopez MD [Primary Care Provider] - 1 Week Discharge Medications: New doxycycline hyclate 100 mg capsule 100 mg PO BID Qty: 28 0RF amoxicillin-pot clavulanate [Augmentin] 500-125 mg tablet 1 tab PO BID Qty: 28 0RF Continued omeprazole 20 mg capsule,delayed release(DR/EC) 20 mg PO DAILY@0630 insulin asp prt-insulin aspart [Novolog Mix 70-30FlexPen U-100] 100 unit/mL (70-30) insulin pen 15 unit subcut DAILY@0900 sennosides [senna] 8.6 mg tablet 17.2 mg PO DAILY@0900 risperidone 2 mg tablet 2 mg PO DAILY@0900 insulin asp prt-insulin aspart [Novolog Mix 70-30FlexPen U-100] 100 unit/mL (70-30) insulin pen 17 unit subcut DAILY@2100 loperamide 2 mg Capsule 2 mg PO QID PRN (Reason: Diarrhea) glucose 4 gram Tablet,Chewable 4 g PO Q15M PRN (Reason: Hypoglycemia) Rx Instructions: until symptoms of low blood sugar are controlled lactulose 10 gram/15 mL Solution 10 g PO DAILY PRN (Reason: Constipation) Cerovite Senior 0.4 mg-300 mcg- 250 mcg Tablet 1 tab PO DAILY pregabalin 100 mg capsule 100 mg PO BID ketoconazole 2 % Shampoo 1 appl TOPICAL Q7D Genvoya [phone] mg tablet 1 tab PO DAILY pravastatin 40 mg tablet 40 mg PO BEDTIME lithium carbonate 300 mg tablet 900 mg PO DAILY propranolol 20 mg tablet 20 mg PO DAILY risperidone 3 mg tablet 6 mg PO BEDTIME docusate sodium 100 mg capsule 100 mg PO BID benztropine 2 mg tablet 2 mg PO BID polyethylene glycol 3350 [Gavilax] 17 gram/dose powder 17 g PO DAILY tamsulosin 0.4 mg capsule 0.4 mg PO BEDTIME 90 Days Qty: 90 3RF finasteride 5 mg tablet 5 mg PO DAILY 90 Days Qty: 90 1RF Discontinued naproxen 500 mg Tablet 500 mg PO BID PRN (Reason: Pain) Discharge Orders: Discharge Order (Routine); Ordered 01/06/22 Ordered By: Laurel Isaacs Diet: Diabetic diet Activity on Discharge: As tolerated Stand Alone Forms: Patient Portal Discharge page Care Plan Goals: Follow up with PCP in one week Continue wound care at home Health Concerns: Diabetic foot infection HIV DM Chronic osteomyelitis Plan of Treatment: Silver alginate dressings daily Augmentin x 14 days Doxycycline x14 days Assessment: As per summary
--- NOTE | 2022-01-06 10:11 | W.MHC.F2F ---
Service Date Service Date: 01/06/22 Encounter Date of encounter: 01/06/22 Reasons for Services Signs and symptoms assessed: Diabetic foot infection Reason for intermediate: wound care Homebound: Leaving the home is medically contraindicated at this time without the asist of a device and/or another person due th the listed conditions above and below. Reason homebound: weakness related to hospital stay Certification: Based on the above findings, I certify that this patient is confined to the home and needs intermittent intermediate care. The patient is under my care, and I have initiated the establishment of the plan of care. The patient will be followed by a physician who will periodically review the plan of care.
[2022-01-06 11:55] LABS: Glucose, Whole Blood 170 mg/dL (60-115)
[2022-01-06 12:00] VITALS: BP 128/66; PULSE 69; RESP 18; TEMP 37.1
== END 2022-01-06 14:05 | disposition home or self-care (01) | DRG 720 ==
LOC: HO.ED 21:15 → HO.EDOVER 01-01 05:53 → HO.S3 01-01 14:13
PROVIDERS: Family Medicine; Internal Medicine; Student in an Organized Health Care Education/Training Program; Admitting Provider Internal Medicine; Emergency Provider Internal Medicine; PCP Pediatrics; Visit Provider Student in an Organized Health Care Education/Training Program
DX: A41.9 Sepsis, unspecified organism (principal); E11.52 Type 2 diabetes mellitus with diabetic peripheral angiopathy with gangrene; E11.621 Type 2 diabetes mellitus with foot ulcer; L97.418 Non-pressure chronic ulcer of right heel and midfoot with other specified severity; M86.671 Other chronic osteomyelitis, right ankle and foot; M86.672 Other chronic osteomyelitis, left ankle and foot; L97.428 Non-pressure chronic ulcer of left heel and midfoot with other specified severity; Z21 Asymptomatic human immunodeficiency virus [HIV] infection status; E11.69 Type 2 diabetes mellitus with other specified complication; F17.210 Nicotine dependence, cigarettes, uncomplicated; Z20.822 Contact with and (suspected) exposure to COVID-19; Z71.6 Tobacco abuse counseling; Z88.6 Allergy status to analgesic agent; Z79.899 Other long term (current) drug therapy
CPT/HCPCS: 0241U; 36415; 71045; 73620; 73720; 80048; 80202; 81001; 82565; 82947; 83605; 85025; 85027; 85652; 86140; 87040; 96360; 96361; 96365; 96367; 99285; A9585; J0692; J1885; J2543; J3370

== ENCOUNTER 2022-01-10 08:03 | Outpatient (RCR) | payer MEDICAID, SELFPAY | END 2022-02-21 14:40 | disposition home or self-care (01) | LOC: HO.WCC 08:03 | PROVIDERS: PCP Pediatrics; Visit Provider Physician Assistant | DX: E11.621 Type 2 diabetes mellitus with foot ulcer (principal); L97.514 Non-pressure chronic ulcer of other part of right foot with necrosis of bone; L97.522 Non-pressure chronic ulcer of other part of left foot with fat layer exposed; E11.69 Type 2 diabetes mellitus with other specified complication; M86.371 Chronic multifocal osteomyelitis, right ankle and foot; E11.40 Type 2 diabetes mellitus with diabetic neuropathy, unspecified; L84 Corns and callosities; B20 Human immunodeficiency virus [HIV] disease; F17.210 Nicotine dependence, cigarettes, uncomplicated; Z91.199 Patient's noncompliance with other medical treatment and regimen due to unspecified reason; Z79.4 Long term (current) use of insulin; Z79.2 Long term (current) use of antibiotics; Z79.899 Other long term (current) drug therapy | CPT/HCPCS: 11042; 11044; 99213 ==

== ENCOUNTER → 2022-01-13 14:00 | Outpatient (BNVA) | payer MEDICAID, SELFPAY | PROVIDERS: PCP Pediatrics; Referring Provider Family Medicine; Visit Provider Internal Medicine Cardiovascular Disease | DX: R07.9 Chest pain, unspecified (principal) | CPT/HCPCS: 99202 ==

== ENCOUNTER 2022-01-14 18:58 | Inpatient (IN) | payer MEDICAID, SELFPAY ==
--- NOTE | ~2022-01-14 | XR_ITS ---
EXAMINATION: XR foot LT 2V, XR foot RT 2V CLINICAL INFORMATION: History of osteomyelitis. Pain. COMPARISON: Right foot MRI 01/03/2022. Right foot radiographs TECHNIQUE: 3 view series right foot; 3 view series left foot radiographs. Left and right feet radiographs 01/01/2022. FINDINGS: Right foot: Soft tissue prominence and soft tissue ulceration is noted along the plantar aspect of the head of the first metatarsal. No adjacent erosive osseous lesions are noted. Marked enthesopathic changes of the calcaneus are again visualized. Mild diffuse osteopenia. Left foot: Soft tissue prominence and mild superficial soft tissue ulceration is present along the lateral aspect of the head of the fifth metatarsal. No associated osseous erosion is noted in this region. Mild diffuse osteopenia is present. Prominent enthesopathic changes of the calcaneus are noted. XR/XR foot LT 2V IMPRESSION: Right foot: *No radiographic evidence of osteomyelitis. *Soft tissue inflammatory changes, focal soft tissue emphysematous changes and soft tissue ulceration along the plantar aspect of the head of the first metatarsal. Left foot: *No radiographic evidence of osteomyelitis. *Soft tissue inflammatory changes, focal soft tissue emphysema and probable soft tissue ulceration adjacent to the lateral aspect of the head of the fifth metatarsal.
--- NOTE | ~2022-01-14 | XR_ITS ---
EXAMINATION: XR foot LT 2V, XR foot RT 2V CLINICAL INFORMATION: History of osteomyelitis. Pain. COMPARISON: Right foot MRI 01/03/2022. Right foot radiographs TECHNIQUE: 3 view series right foot; 3 view series left foot radiographs. Left and right feet radiographs 01/01/2022. FINDINGS: Right foot: Soft tissue prominence and soft tissue ulceration is noted along the plantar aspect of the head of the first metatarsal. No adjacent erosive osseous lesions are noted. Marked enthesopathic changes of the calcaneus are again visualized. Mild diffuse osteopenia. Left foot: Soft tissue prominence and mild superficial soft tissue ulceration is present along the lateral aspect of the head of the fifth metatarsal. No associated osseous erosion is noted in this region. Mild diffuse osteopenia is present. Prominent enthesopathic changes of the calcaneus are noted. XR/XR foot RT 2V IMPRESSION: Right foot: *No radiographic evidence of osteomyelitis. *Soft tissue inflammatory changes, focal soft tissue emphysematous changes and soft tissue ulceration along the plantar aspect of the head of the first metatarsal. Left foot: *No radiographic evidence of osteomyelitis. *Soft tissue inflammatory changes, focal soft tissue emphysema and probable soft tissue ulceration adjacent to the lateral aspect of the head of the fifth metatarsal.
--- NOTE | ~2022-01-14 | US_ITS ---
EXAMINATION: NONINVASIVE ASSESSMENT OF THE ARTERIES OF BOTH LOWER EXTREMITIES CLINICAL INFORMATION: Nonhealing ulcer. COMPARISON: None. TECHNIQUE: Segmental ankle pulse volume recording, pressure measurement at the ankle and ankle brachial indices were obtained of the lower extremity arterial system bilaterally. In addition, bilateral lower extremity duplex ultrasound was performed with velocity measurements and waveform analysis in the common femoral arteries, profunda femoris arteries, proximal mid and distal superficial femoral arteries, popliteal arteries and tibial vessels. This study was performed at rest only. FINDINGS: a) AT REST: 1. The ankle-brachial indices are: Right 1.17 and left 1.10. >0.97-1.25 = normal - no significant arterial disease. 0.75-0.96 = mild peripheral arterial disease. 0.5-0.74 = moderate peripheral arterial disease. <0.50 = severe peripheral arterial disease. 2. Segmental pressure at ankle: Normal. 3. PVR waveform at ankle: Minimally rounded. 4. Duplex exam. Velocities in cm/sec and phasicity as well as the presence of plaque are reported below. RIGHT LEG: Scattered minimal plaque is present and multiphasic flow is noted throughout. Common Femoral: 117 Profunda Femoris: 106 Proximal SFA: 84 Mid SFA: 74 Distal SFA: 94 Popliteal: 105 Tibial: 24 LEFT LEG: Scattered minimal plaque is present. Multiphasic flow noted throughout with monophasic flow noted in the posterior tibial artery Common Femoral: 97 Profunda Femoris: 55 Proximal SFA: 87 Mid SFA: 96 Distal SFA: 75 Popliteal: 118 Tibial: 19 US/US arterial duplex LE BI IMPRESSION: No evidence of hemodynamically significant lower extremity peripheral arterial disease at rest.
--- NOTE | ~2022-01-14 | US_ITS ---
EXAMINATION: NONINVASIVE ASSESSMENT OF THE ARTERIES OF BOTH LOWER EXTREMITIES CLINICAL INFORMATION: Nonhealing ulcer. COMPARISON: None. TECHNIQUE: Segmental ankle pulse volume recording, pressure measurement at the ankle and ankle brachial indices were obtained of the lower extremity arterial system bilaterally. In addition, bilateral lower extremity duplex ultrasound was performed with velocity measurements and waveform analysis in the common femoral arteries, profunda femoris arteries, proximal mid and distal superficial femoral arteries, popliteal arteries and tibial vessels. This study was performed at rest only. FINDINGS: a) AT REST: 1. The ankle-brachial indices are: Right 1.17 and left 1.10. >0.97-1.25 = normal - no significant arterial disease. 0.75-0.96 = mild peripheral arterial disease. 0.5-0.74 = moderate peripheral arterial disease. <0.50 = severe peripheral arterial disease. 2. Segmental pressure at ankle: Normal. 3. PVR waveform at ankle: Minimally rounded. 4. Duplex exam. Velocities in cm/sec and phasicity as well as the presence of plaque are reported below. RIGHT LEG: Scattered minimal plaque is present and multiphasic flow is noted throughout. Common Femoral: 117 Profunda Femoris: 106 Proximal SFA: 84 Mid SFA: 74 Distal SFA: 94 Popliteal: 105 Tibial: 24 LEFT LEG: Scattered minimal plaque is present. Multiphasic flow noted throughout with monophasic flow noted in the posterior tibial artery Common Femoral: 97 Profunda Femoris: 55 Proximal SFA: 87 Mid SFA: 96 Distal SFA: 75 Popliteal: 118 Tibial: 19 US/US KADI complete IMPRESSION: No evidence of hemodynamically significant lower extremity peripheral arterial disease at rest.
[2022-01-14 19:06] VITALS: BP 115/73; BP 150/84; PULSE 77; PULSE 90; RESP 16; TEMP 37; O2SAT 100; O2SAT 99; BMI 23.6
--- NOTE | 2022-01-14 19:50 | ED.GENADULT ---
HPI - General Adult General Chief complaint: General Medical Stated complaint: hyperklycemic Time Seen by Provider: 01/14/22 19:50 Source: patient and EMS Mode of arrival: EMS History of Present Illness HPI narrative: 56-year-old male presents via EMS from a half-way for elevated blood sugar. detention facility gave 17 units but states that his blood sugar was 518. Patient is tired, not answering questions. Onset (ago): hour(s) (Within the hour of arrival) Location: left, right and lower extremity Radiation: non-radiation Severity: moderate Related Data Home Medications Medication Instructions Recorded Confirmed benztropine 2 mg tablet 2 mg PO BID 02/16/21 01/13/22 docusate sodium 100 mg capsule 100 mg PO BID 02/16/21 01/13/22 elviteg 150 mg-cob 150 mg-emtricit 1 tab PO DAILY 02/16/21 01/13/22 200 mg-tenofo alafenam 10 mg tablet (Genvoya) lithium carbonate 300 mg tablet 900 mg PO DAILY 02/16/21 01/13/22 pravastatin 40 mg tablet 40 mg PO BEDTIME 02/16/21 01/13/22 propranolol 20 mg tablet 20 mg PO DAILY 02/16/21 01/13/22 risperidone 3 mg tablet 6 mg PO BEDTIME 02/16/21 01/13/22 insulin aspar prot-insulin aspart 15 unit subcut DAILY@0900 03/05/21 01/13/22 100 unit/mL (70-30) subcutaneous pen (Novolog Mix 70-30FlexPen U-100) omeprazole 20 mg capsule,delayed 20 mg PO DAILY@0630 03/05/21 01/13/22 release xltzguop-drv-ywjsm acid 0.4 1 tab PO DAILY 07/27/21 01/13/22 mg-lycopene 300 mcg-lutein 250 mcg tablet (Cerovite Senior) pregabalin 100 mg capsule 100 mg PO BID 07/27/21 01/13/22 polyethylene glycol 3350 17 17 g PO DAILY 09/02/21 01/13/22 gram/dose oral powder (Gavilax) ketoconazole 2 % shampoo 1 appl topical Q7D 10/12/21 01/13/22 glucose 4 gram chewable tablet 4 g PO Q15M PRN Hypoglycemia 01/01/22 01/13/22 insulin aspar prot-insulin aspart 17 unit subcut DAILY@2100 01/01/22 01/13/22 100 unit/mL (70-30) subcutaneous pen (Novolog Mix 70-30FlexPen U-100) lactulose 10 gram/15 mL oral 10 g PO DAILY PRN Constipation 01/01/22 01/13/22 solution risperidone 2 mg tablet 2 mg PO DAILY@0900 01/01/22 01/13/22 sennosides 8.6 mg tablet (senna) 17.2 mg PO DAILY@0900 01/01/22 01/13/22 Previous Rx's Medication Instructions Recorded finasteride 5 mg tablet 5 mg PO DAILY 90 days #90 tabs 10/28/21 tamsulosin 0.4 mg capsule 0.4 mg PO BEDTIME 90 days #90 caps 10/28/21 amoxicillin 500 mg-potassium 1 tab PO BID #28 tabs 01/06/22 clavulanate 125 mg tablet (Augmentin) doxycycline hyclate 100 mg capsule 100 mg PO BID #28 caps 01/06/22 Allergies Allergy/AdvReac Type Severity Reaction Status Date / Time acetaminophen [From TYLENOL] Allergy Unknown UNKNOWN Verified 01/13/22 14:13 aspirin [ASA] Allergy Unknown AGITATION Verified 01/13/22 14:13 trazodone [TRAZODONE] AdvReac Unknown HYPER Verified 01/13/22 14:13 Review of Systems Review of Systems: Yes Unobtainable due to mental status (Patient not answering questions at this time) [facility] Past Medical History Attestation statement: The following information was validated with the patient. Source: old records reviewed Medical History BPH w urinary obs/LUTS Callus of foot Chronic prostatitis Diabetic foot ulcers Elevated C-reactive protein (CRP) Elevated erythrocyte sedimentation rate Enterococcal bacteremia Erectile dysfunction due to arterial insufficiency Eschar of foot Hepatitis HIV (human immunodeficiency virus infection) Open wnd foot-complicated Osteomyelitis of left foot Sepsis Urinary hesitancy Surgical History No pertinent past surgical history Family History Family History Father No problems noted. Mother No problems noted. Social History Social History Household Members: Other Housing: Other Housing Other:: detention Do you presently have visiting nurse or other home services: Yes Unable to assess alcohol history related to: Unknown Alcohol intake: never Patient Tobacco Use Status: Current everyday Tobacco user Tobacco use type: Cigarette Cigarette Packs Per Day: 1 Cigarettes Per Day: 20.0 Smoked in Last 30 Days: No Use of substances other than those prescribed or required for medical reasons: No Advance Directives: No Advance Directives Information Provided: No service: No Current occupational status: unemployed Physical Exam ED Vital Signs: Vital Signs - 24 hr 01/14/22 19:06 01/14/22 20:48 01/14/22 23:46 Temperature 98.6 F Pulse Rate 77 72 66 Respiratory Rate 16 11 L 12 Blood Pressure 115/73 123/76 113/70 Pulse Oximetry 99 99 98 Oxygen Delivery Method Room Air Room Air Room Air 01/15/22 00:19 Temperature Pulse Rate 64 Respiratory Rate 19 Blood Pressure 114/64 Pulse Oximetry 98 Oxygen Delivery Method Room Air BMI result Body Mass Index 23.6 Appearance: Alert. Moderate distress. Eyes: Pupils equal, round and reactive to light. ENT: Pharynx normal. Neck: Normal inspection. Neck supple. CVS: Normal heart rate and rhythm. Pulses normal. Respiratory: No respiratory distress. Breath sounds normal. Abdomen: Soft and nontender. Skin: Skin warm and dry. Normal skin color. Normal skin turgor. Extremities: Bilateral lower extremity osteomyelitis with chronic wounds. Neuro: No motor deficit. No sensory deficit. Cranial nerves 2-12 intact. Course Course Course Narrative: 56-year-old male presents from a half-way via EMS for elevated blood sugar. At the time of his arrival patient is sleepy not answering any questions, pulling the blanket over his head. Order for labs, urinalysis, and fluids. 22:00 it is noted the patient has an elevated white count of 15.8, H&H of 11.3/33.3, patient does have a chronic leukocytosis, and has chronic osteomyelitis. A review of records indicates the patient has received linezolid IV antibiotics and p.o. doxycycline and Augmentin for chronic osteomyelitis. Patient's wounds are weeping with malodorous drainage. Will order x-rays, lactic and cultures. 22:54 discussion with hospitalist. Will discuss once x-rays return. 23:40 plan of care is to admit for chronic osteomyelitis. Consultations Consultation #1: Ferny Medications Administered Generic Name Dose Route Start Last Admin Trade Name Freq PRN Reason Stop Dose Admin Cefepime HCl 2 gm/ Sodium 50 mls @ 100 mls/hr 01/15/22 02:00 01/15/22 01:59 Chloride IV 100 mls/hr Q8H BRANDON Administration Insulin Glargine 17 unit 01/15/22 01:15 01/15/22 02:00 Insulin Glargine,Hum.Rec.Anlog 100 Unit/Ml 10 Ml Vial SUBCUT 17 unit BEDTIME BRANDON Administration Discontinued Medications Generic Name Dose Route Start Last Admin Trade Name Freq PRN Reason Stop Dose Admin Sodium Chloride 1,000 mls @ 999 mls/hr 01/14/22 20:00 01/14/22 21:33 Ns IVCONT 01/14/22 21:00 Infused .Q1H1M BRANDON Infusion Vancomycin HCl 1,000 mg/ 535 mls @ 267.5 mls/hr 01/14/22 22:49 01/15/22 01:52 Vancomycin HCl 750 mg/ Sodium IV 01/15/22 00:48 Infused Chloride ONCE ONE Infusion Sodium Chloride 1,000 mls @ 999 mls/hr 01/14/22 23:00 01/15/22 02:20 Ns IVCONT 01/15/22 01:00 Not Given .Q1H1M BRANDON Cefepime HCl 2 gm/ Sodium 50 mls @ 100 mls/hr 01/15/22 01:15 01/15/22 02:19 Chloride IV Not Given Q8H BRANDON Medical Decision Making Medical Decision Making Differential Diagnoses: Differential diagnosis (Hyperglycemia, osteomyelitis) Consideration of admission/observation: Consideration of Admission/Observation (Patient will be admitted) Discussion of management with other physician/healthcare provider/other source (e.g., hospitalist, industry consultant, behavioral health): Discussion w/other physician/healthcare provider Management of the patient was discussed with: Hospitalist My interpretation is Lab Attestation: I reviewed the patient's lab results. Discussion of test interpretation with radiology: Discussion of test interpretation with radiology EXAMINATION: XR foot LT 2V, XR foot RT 2V CLINICAL INFORMATION: History of osteomyelitis. Pain. COMPARISON: Right foot MRI 01/03/2022. Right foot radiographs TECHNIQUE: 3 view series right foot; 3 view series left foot radiographs. Left and right feet radiographs 01/01/2022. FINDINGS: Right foot: Soft tissue prominence and soft tissue ulceration is noted along the plantar aspect of the head of the first metatarsal. No adjacent erosive osseous lesions are noted. Marked enthesopathic changes of the calcaneus are again visualized. Mild diffuse osteopenia. Left foot: Soft tissue prominence and mild superficial soft tissue ulceration is present along the lateral aspect of the head of the fifth metatarsal. No associated osseous erosion is noted in this region. Mild diffuse osteopenia is present. Prominent enthesopathic changes of the calcaneus are noted. XR/XR foot LT 2V IMPRESSION: Right foot: *No radiographic evidence of osteomyelitis. *Soft tissue inflammatory changes, focal soft tissue emphysematous changes and soft tissue ulceration along the plantar aspect of the head of the first metatarsal. ? Left foot: *No radiographic evidence of osteomyelitis. *Soft tissue inflammatory changes, focal soft tissue emphysema and probable soft tissue ulceration adjacent to the lateral aspect of the head of the fifth metatarsal.? Non-ED record review: Review of External (Non-ED) Record External record reviewed:: Inpatient record Additional Comments: Infectious disease Tests considered but not performed: Tests Considered But Not Performed (CT scans bilateral lower extremities, patient has known osteomyelitis) Chronic conditions affecting care (e.g., diabetes, HTN): Chronic conditions affecting care (e.g., diabetes, HTN) Patient?s care impacted by: Diabetes and Hypertension Discharge Plan Discharge Clinical Impression: Chronic osteomyelitis Patient Disposition: Admitted As Inpatient
[2022-01-14 20:25] LABS: MANUAL DIFF FLAG NO
[2022-01-14] MEDS: 0.9 % Sodium Chloride 1,000 ML 999 ML IVCONT ×2 (20:26→23:40)
--- NOTE | 2022-01-14 20:26 | PC.NURSE ---
medicated pt per apr. Ramon Cervantes notified.
[2022-01-14 20:28] LABS: Basophils Percent Auto 0.3 % (0-2); Eosinophils Absolute Auto 0.3 X10*3/uL (0.0-0.4); Eosinophils Percent Auto 1.7 % (0-4); Hematocrit 33.3 % (42.0-52.0); Hemoglobin 11.3 g/dl (14.0-18.0); Imm Gran Pct Auto 1.3 % (0.0-0.4); Lymphocytes Absolute Auto 2.1 X10*3/uL (1.2-4.9); Lymphocytes Percent Auto 13.6 % (20-40); Mean Corpuscular HGB Conc 33.9 g/dl (31.0-36.0); Mean Corpuscular Hemoglobin 29.5 pg (27.0-33.0); Mean Corpuscular Volume 86.9 fL (80.0-98.0); Mean Platelet Volume 10.4 fL (9.4-12.4); Monocytes Percent Auto 6.5 % (2-11); Neutrophils Absolute Auto 12.1 x10*3/uL (2.0-8.3); Neutrophils Percent Auto 76.6 % (45-73); Platelet Count 258 X10*3/uL (160-400); Red Blood Count 3.83 X10*6/uL (4.60-5.80); Red Cell Distribution Width 11.9 % (11.0-16.0); White Blood Count 15.8 X10*3/uL (4.8-10.8)
[2022-01-14 20:48] VITALS: BP 123/76; PULSE 72; RESP 11; O2SAT 99
--- NOTE | 2022-01-14 20:48 | PC.NURSE ---
Assumed care of patient. Patient resting quietly and comfortably.
[2022-01-14 20:49] LABS: Anion Gap 9 (12-20); Blood Urea Nitrogen 14 mg/dL (9-16); Calcium 9.2 mg/dL (8.4-10.2); Carbon Dioxide 27 mmol/L (22-29); Chloride 103 mmol/L (96-108); Creatinine Clr Calc Pharmacy 61.2; Estimated Glomerular Filt Rate > 60; Glucose Random 343 mg/dL (60-115); Potassium 4.1 mmol/L (3.3-5.1); Sodium 135 mmol/L (135-145)
--- NOTE | 2022-01-14 20:58 | PC.NURSE ---
POC 266 provider (Donna Hinton NP) notified
[2022-01-14 21:02] LABS: Glucose, Whole Blood 266 mg/dL (60-115)
[2022-01-14 21:39] LABS: Appearance Urine Clear; Color Urine Yellow; Glucose Urine UA >=1000 mg/dL (Negative); Leukocyte Esterase Urine Negative (Negative); Nitrite Urine Negative (Negative); Specific Gravity - Urine 1.015 (1.005-1.025); UMIC TRIGGER UACC YES; Urine Blood Negative (Negative); Urine Ketones Negative (Negative); Urine Protein Negative (Neg-Trace)
[2022-01-14 21:44] LABS: Bacteria Urine None Seen (None Seen); Hyaline Casts Urine 0-2 /LPF (0-2); RBC Urine 0-2 /HPF (0-2); Squamous Epithelial Cell Urine 0-2 /HPF (0-2); WBC Urine 0-5 /HPF (0-5)
[2022-01-14 23:18] LABS: Lactic Acid 1.2 mmol/L (0.5-2.0)
[2022-01-14] MEDS: vancomycin HCL 1,000 MG, vancomycin HCL 750 MG in 0.9 % Sodium Chloride 500 ML 267.5 MG IV (23:41)
--- NOTE | 2022-01-14 23:41 | PC.NURSE ---
Upon removing patient's shoes socks and bandages this nurse observed drainage on bandages that went through to the insides of the socks. L ball of his foot under the great toe pt has a 3.5 cmx 3 cm wound and the R ball of his foot under the pinky toe has a 4.5 cm x4 cm wound. Pt also has a wound in between his great toe and pointer/long toe that measures 3 cm x 6.5 cm. All wounds sited are draining. Pedal pulses confirmed by doppler on bilaterally. L foot pedal pulse weak. R foot pedal pulse was less faint but positive. Patient is not A&O. Provider notified and photos of wound sites sent to provider via [employer].
[2022-01-14 23:46] VITALS: BP 113/70; PULSE 66; RESP 12; O2SAT 98
[2022-01-15] VITALS (7 sets, daily range): BP systolic 114–136; BP diastolic 64–72; PULSE 63–94; RESP 14–20; TEMP 36.1–37.1; O2SAT 97–100; BMI 22.7
--- NOTE | 2022-01-15 00:50 | P.HPHOSP_ITS ---
History of Present Illness Date of Service: 01/15/22 Chief Complaint: Hyperglycemia This is a 56-year-old male with pertinent history of diabetic foot ulcer with chronic osteomyelitis, history of HIV and hepatitis, BPH, insulin-dependent diabetes mellitus, gastroesophageal reflux disease, mood disorder who was sent from the emergency department for evaluation of elevated blood glucose. Patient's point of care blood glucose at the snf was in the 600s and he was sent here for further evaluation and management. 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 He has no complaints at this time. States he had told his nurse at the snf to not send him to the hospital. Stated that he does not like staying in the hospital. As per the nurse in the ER, patient's bilateral diabetic foot wounds with purulent foul-smelling drainage. Patient states the drainage has increased over the last 1 week. Also has been having occasional fevers. Of note, patient was recently admitted and discharged on 01/06 with diabetic foot infection. Initially was admitted on broad-spectrum IV antibiotics, general surgery was consulted who did wound debridement. Infectious Disease was consulted who felt the patient did not need IV antibiotics for chronic osteomyelitis and patient was discharged on p.o. doxycycline plus Augmentin. Review of Systems Cardiovascular: Cardiovascular: Reports no additional cardiovascular complaints Respiratory: Respiratory: Reports no additional respiratory complaints Gastrointestinal: Gastrointestinal: Reports no additional gastrointestinal complaints Genitourinary: Genitourinary: Reports no additional male genitourinary complaints [facility] Medical History BPH w urinary obs/LUTS Callus of foot Chronic prostatitis Diabetic foot ulcers Elevated C-reactive protein (CRP) Elevated erythrocyte sedimentation rate Enterococcal bacteremia Erectile dysfunction due to arterial insufficiency Eschar of foot Hepatitis HIV (human immunodeficiency virus infection) Open wnd foot-complicated Osteomyelitis of left foot Sepsis Urinary hesitancy Family History Father No problems noted. Mother No problems noted. Surgical History No pertinent past surgical history Social History Household Members: Other Housing: Other Housing Other:: longterm Do you presently have visiting nurse or other home services: Yes Unable to assess alcohol history related to: Unknown Alcohol intake: never Patient Tobacco Use Status: Current everyday Tobacco user Tobacco use type: Cigarette Cigarette Packs Per Day: 1 Cigarettes Per Day: 20.0 Smoked in Last 30 Days: No Use of substances other than those prescribed or required for medical reasons: No Advance Directives: No Advance Directives Information Provided: No service: No Current occupational status: unemployed Meds Allergies Allergy/AdvReac Type Severity Reaction Status Date / Time acetaminophen [From TYLENOL] Allergy Unknown UNKNOWN Verified 01/13/22 14:13 aspirin [ASA] Allergy Unknown AGITATION Verified 01/13/22 14:13 trazodone [TRAZODONE] AdvReac Unknown HYPER Verified 01/13/22 14:13 Active Medications: Current Medications Acetaminophen (Acetaminophen 325 Mg Tablet) 650 mg PO Q6H PRN PRN Reason: Pain, Mild (Pain Scale 1-3) Sodium Chloride (Ns) 1,000 mls @ 999 mls/hr IVCONT .Q1H1M [facility] Stop: 01/15/22 01:00 Last Admin: 01/14/22 23:40 Dose: 999 mls/hr Melatonin (Melatonin 3 Mg Tablet) 6 mg PO BEDTIME PRN PRN Reason: Insomnia Ondansetron HCl (Ondansetron Hcl 4 Mg/2 Ml Vial) 4 mg IVPUSH Q8H PRN PRN Reason: Nausea and Vomiting Pharmacy Consult (Consult Rx Perform Med Rec) 1 each MISCELLANE ONCE PRN PRN Reason: Consult order Pharmacy Consult (Consult Rx Perform Med Rec) 1 each MISCELLANE ONCE PRN PRN Reason: Consult order Sodium Chloride (0.9 % Sodium Chloride Flush 3 Ml Syringe) [facility] Medications Medication Instructions Recorded Confirmed Last Taken Type benztropine 2 mg tablet 2 mg PO BID 02/16/21 01/13/22 Unknown History docusate sodium 100 mg capsule 100 mg PO BID 02/16/21 01/13/22 Unknown History elviteg 150 mg-cob 150 mg-emtricit 1 tab PO DAILY 02/16/21 01/13/22 Unknown History 200 mg-tenofo alafenam 10 mg tablet (Genvoya) lithium carbonate 300 mg tablet 900 mg PO DAILY 02/16/21 01/13/22 Unknown History pravastatin 40 mg tablet 40 mg PO BEDTIME 02/16/21 01/13/22 Unknown History propranolol 20 mg tablet 20 mg PO DAILY 02/16/21 01/13/22 Unknown History risperidone 3 mg tablet 6 mg PO BEDTIME 02/16/21 01/13/22 Unknown History insulin aspar prot-insulin aspart 15 unit subcut DAILY@0900 03/05/21 01/13/22 Unknown History 100 unit/mL (70-30) subcutaneous pen (Novolog Mix 70-30FlexPen U-100) omeprazole 20 mg capsule,delayed 20 mg PO DAILY@0630 03/05/21 01/13/22 Unknown History release obruugkx-dam-zxmld acid 0.4 1 tab PO DAILY 07/27/21 01/13/22 Unknown History mg-lycopene 300 mcg-lutein 250 mcg tablet (Cerovite Senior) pregabalin 100 mg capsule 100 mg PO BID 07/27/21 01/13/22 Unknown History polyethylene glycol 3350 17 17 g PO DAILY 09/02/21 01/13/22 Unknown History gram/dose oral powder (Gavilax) ketoconazole 2 % shampoo 1 appl topical Q7D 10/12/21 01/13/22 Unknown History glucose 4 gram chewable tablet 4 g PO Q15M PRN Hypoglycemia 01/01/22 01/13/22 Unknown History insulin aspar prot-insulin aspart 17 unit subcut DAILY@2100 01/01/22 01/13/22 Unknown History 100 unit/mL (70-30) subcutaneous pen (Novolog Mix 70-30FlexPen U-100) lactulose 10 gram/15 mL oral 10 g PO DAILY PRN Constipation 01/01/22 01/13/22 Unknown History solution risperidone 2 mg tablet 2 mg PO DAILY@0900 01/01/22 01/13/22 Unknown History sennosides 8.6 mg tablet (senna) 17.2 mg PO DAILY@0901/01/22 01/13/22 Unknown History Physical Exam Vital Signs and Narrative: Vital Signs: Last Vital Signs Temp 98.6 F 01/14/22 19:06 Pulse 64 01/15/22 00:19 Resp 19 01/15/22 00:19 BP 114/64 01/15/22 00:19 Pulse Ox 98 01/15/22 00:19 O2 Del Method 01/15/22 00:19 BMI result Body Mass Index 23.6 Middle-aged male lying in bed in no distress Neck supple, no JVD Regular rate and rhythm, S1-S2 heard Regular breath sounds bilaterally, no wheezing or crackles appreciated Abdomen soft nontender, no guarding, no rigidity Patient is awake, alert and oriented to self, place, time and person ; no focal motor deficit Extremity: Bilateral foot wounds with foul smelling serosanguineous drainage Psych: Normal mood No pedal edema Results Labs CBC and Chem 7: 01/14/22 20:19 01/14/22 20:19 Labs: Laboratory Results - last 24 hr 01/14/22 01/14/22 01/14/22 20:19 20:19 20:54 MCV 86.9 MCH 29.5 MCHC 33.9 RDW 11.9 Plt Count 258 D MPV 10.4 Immature Gran % (Auto) 1.3 H Neut % (Auto) 76.6 H Lymph % (Auto) 13.6 L [place] % (Auto) 6.5 Eos % (Auto) 1.7 Baso % (Auto) 0.3 Lymph # (Auto) 2.1 [place] # (Auto) 1.0 Eos # (Auto) 0.3 Baso # (Auto) 0.0 Abs Immat Gran (auto) 0.20 H Absolute Neuts (auto) 12.1 H Absolute Nucleated RBC 0.000 Nucleated RBC % (auto) 0.0 Anion Gap 9 L Estim Creat Clear Calc 61.2 Estimated GFR > 60 POC Glucose 266 H Random Glucose 343 H D Lactic Acid Calcium 9.2 Urine Color Urine Appearance Urine pH Ur Specific [place] Urine Protein Urine Glucose (UA) Urine Ketones Urine Blood Urine Nitrite Ur Leukocyte Esterase Urine RBC Urine WBC Ur Squamous Epith Cells Urine Bacteria Hyaline Casts 01/14/22 01/14/22 21:21 22:54 MCV MCH MCHC RDW Plt Count MPV Immature Gran % (Auto) Neut % (Auto) Lymph % (Auto) [place] % (Auto) Eos % (Auto) Baso % (Auto) Lymph # (Auto) [place] # (Auto) Eos # (Auto) Baso # (Auto) Abs Immat Gran (auto) Absolute Neuts (auto) Absolute Nucleated RBC Nucleated RBC % (auto) Anion Gap Estim Creat Clear Calc Estimated GFR POC Glucose Random Glucose Lactic Acid 1.2 Calcium Urine Color Yellow Urine Appearance Clear Urine pH 7.0 Ur Specific [place] 1.015 Urine Protein Negative Urine Glucose (UA) >=1000 H Urine Ketones Negative Urine Blood Negative Urine Nitrite Negative Ur Leukocyte Esterase Negative Urine RBC 0-2 Urine WBC 0-5 Ur Squamous Epith Cells 0-2 Urine Bacteria None Seen Hyaline Casts 0-2 Assessment and Plan (1) Hyperglycemia: Status: Acute (2) Diabetic foot infection: Status: Acute (3) Chronic osteomyelitis: Status: Acute (4) Diabetes: Status: Acute (5) Mood disorder: Status: Acute Plan This is a 56-year-old male with pertinent history of diabetic foot ulcer with chronic osteomyelitis, history of HIV and hepatitis, BPH, insulin-dependent diabetes mellitus, gastroesophageal reflux disease, mood disorder who was sent from the emergency department for evaluation of elevated blood glucose. #. Uncontrolled diabetes mellitus with hyperglycemia: Continue home basal re gimen. Initiate Accu-Cheks with sliding scale insulin. Trend blood glucose levels and adjust basal bolus regimen accordingly #. Diabetic foot infection with chronic osteomyelitis: Patient with continued purulent drainage and occasional fevers on p.o. antibiotics. Will initiate broad-spectrum IV vancomycin and cefepime. Consulting Infectious Disease and vascular surgery for assistance. #. Mood disorder: Continue benztropine, lithium, propranolol, pregabalin, risperidone #. HIV: Controlled as per ID, continue Genvoya [correction staff needs to bring in to hospital] #. BPH: Continue finasteride and Flomax #. Gastroesophageal reflux disease: On PPI Med rec pending DVT prophylaxis: Defer Lovenox until vascular surgery evaluation Diabetic diet Full code Admit as inpatient and will require two night minimum hospital stay for close monitoring of blood sugars and IV antibiotics. Time Spent With Patient Time: Total time managing care of this patient today ____ minutes. Quality Stroke Does the patient have a stroke diagnosis?: No VTE Prior VTE?: No VTE Risk Level:: Medical - moderate - high VTE Device Contraindication: Treatment Not Indicated VTE Drug Contraindication: Treatment Not Indicated
[2022-01-15 01:18] LABS: COVID-19 Test Negative (Negative)
[2022-01-15] MEDS: cefEPime HCl 2 GM in 0.9 % Sodium Chloride 50 ML IV ×3 (01:59→17:43)
[2022-01-15] MEDS: Insulin Glargine,Hum.rec.anlog 100 UNIT/ML 10 ML VIAL 17 UNIT SUBCUT ×2 (02:00→20:33)
--- NOTE | 2022-01-15 04:52 | PC.NURSE ---
Called to give report [phone]. RN with another patient at this time. To call back when available.
--- NOTE | 2022-01-15 05:19 | PC.NURSE ---
Gave report to BI Whiteside (S3).
[2022-01-15 06:31] LABS: MANUAL DIFF FLAG NO
[2022-01-15 06:36] LABS: Basophils Percent Auto 0.3 % (0-2); Eosinophils Absolute Auto 0.2 X10*3/uL (0.0-0.4); Eosinophils Percent Auto 1.5 % (0-4); Hematocrit 32.7 % (42.0-52.0); Hemoglobin 11.1 g/dl (14.0-18.0); Imm Gran Abs Auto 0.17 X10*3/uL (0.00-0.03); Imm Gran Pct Auto 1.2 % (0.0-0.4); Lymphocytes Absolute Auto 1.8 X10*3/uL (1.2-4.9); Lymphocytes Percent Auto 12.3 % (20-40); Mean Corpuscular HGB Conc 33.9 g/dl (31.0-36.0); Mean Corpuscular Hemoglobin 29.7 pg (27.0-33.0); Mean Corpuscular Volume 87.4 fL (80.0-98.0); Mean Platelet Volume 10.2 fL (9.4-12.4); Monocytes Absolute Auto 0.9 X10*3/uL (0.1-1.2); Monocytes Percent Auto 5.9 % (2-11); Neutrophils Absolute Auto 11.3 x10*3/uL (2.0-8.3); Neutrophils Percent Auto 78.8 % (45-73); Platelet Count 235 X10*3/uL (160-400); Red Blood Count 3.74 X10*6/uL (4.60-5.80); Red Cell Distribution Width 11.9 % (11.0-16.0); White Blood Count 14.3 X10*3/uL (4.8-10.8)
[2022-01-15 07:02] LABS: Anion Gap 10 (12-20); Blood Urea Nitrogen 11 mg/dL (9-16); Calcium 8.7 mg/dL (8.4-10.2); Carbon Dioxide 24 mmol/L (22-29); Chloride 111 mmol/L (96-108); Creatinine Clr Calc Pharmacy 74.2; Estimated Glomerular Filt Rate > 60; Glucose Random 211 mg/dL (60-115); Potassium 3.9 mmol/L (3.3-5.1); Sodium 141 mmol/L (135-145)
[2022-01-15 07:41] LABS: Glucose, Whole Blood 195 mg/dL (60-115)
[2022-01-15] MEDS: 0.9 % Sodium Chloride Flush 3 ML SYRINGE IVFLUSH ×3 (08:08→20:37)
[2022-01-15] MEDS: Insulin Lispro 100 UNIT/ML 3 ML VIAL SUBCUT ×4 (08:08→20:32)
--- NOTE | 2022-01-15 08:22 | PHA.PROG ---
Admission Date/Time: January 15, 2022 00:46 Indication: Diabetic foot infection with chronic osteomylitis Weight in k.9 kg Adjusted body weight in K.84 kg [place] body weight in K.8 kg Obesity Dosing Indication % IBW: N/A Serum Creatinine - Last 168 Hours 01/14/22 01/15/22 20:19 06:21 Creatinine 1.20 0.99 Estimated CrCl and GFR - Last 168 Hours 01/14/22 01/15/22 20:19 06:21 Estim Creat Clear Calc 61.2 74.2 Estimated GFR > 60 > 60 Vancomycin Loading Dose: 1750 mg Current Vancomycin Dosing Regimen: 750 mg Q12H Date and Time for next Vancomycin Level to be drawn: 01/16 @ 899 Pharmacist Comments on Vancomycin Plan: Patient received adequate loading dose of vancomycin 1750 mg once in the ED 01/14 Scheduled to begin maintenance dose vancomycin 750 mg Q12H. Expected AUC 483 with a trough of 15.5. Patient was recently admit, and was therapeutic on this dose. Trough to be drawn prior to 4th dose 01/16 @ 00 Pharmacy to monitor renal function daily. Agustina Hayes, Cleo Vancomycin dosing will take advantage of [employer] as a clinical decision support tool that uses Bayesian modeling to calculate individual patient's pharmacokinetic parameters and forecast the patient's drug concentration time course with the target goal AUC 24 range of 400 - 600 mg/L/hr.
--- NOTE | 2022-01-15 09:36 | PHA.MEDREC ---
Pharmacy Consult ? Medication Reconciliation Pharmacy has completed the medication reconciliation.
--- NOTE | 2022-01-15 10:04 | HO.PM.IMPN ---
Subjective Subjective Date of Service: 01/15/22 Interval History: cc: hyperglycemia interval history: no complaints Cardiovascular Cardiovascular: Reports no additional cardiovascular complaints Respiratory Respiratory: Reports no additional respiratory complaints Physical Exam Vital Signs: Vital Signs: Last Vital Signs Temp 97 F 01/15/22 08:16 Pulse 94 01/15/22 08:16 Resp 18 01/15/22 08:16 BP 133/70 01/15/22 08:16 Pulse Ox 97 01/15/22 08:16 O2 Del Method 01/15/22 08:16 BMI result Body Mass Index 22.7 General: AO X 3, no acute distress Resp: CTA bilateral, no accessory muscles used CVS: S1,S2,RRR GI: soft, non tender, non distended Neuro: motor grossly intact, alert Psych: appropriate affect, appropriate insight rLE DFU open, drainging Objective Data Active Medications Acetaminophen (Acetaminophen 325 Mg Tablet) 650 mg PO Q6H PRN PRN Reason: Pain, Mild (Pain Scale 1-3) Benztropine Mesylate (Benztropine Mesylate 1 Mg Tablet) 2 mg PO BID [facility] Dextrose (Dextrose 50 % 25 Gm/50 Ml Syringe) 25 gm IVPUSH Q15M PRN; Protocol PRN Reason: per Hypoglycemia Standing Ord. Finasteride (Finasteride 5 Mg Tablet) 5 mg PO DAILY [facility] Glucose (Glucose Gel 15 Gm Gel..Gram.) 15 gm PO Q15M PRN; Protocol PRN Reason: per Hypoglycemia Standing Ord. Cefepime HCl 2 gm/ Sodium (Chloride) 50 mls @ 100 mls/hr IV Q8H [facility] Last Infusion: 01/15/22 02:55 Dose: 0 mls/hr Documented By: BIBI-HELENE Vancomycin HCl 750 mg/ Sodium (Chloride) 265 mls @ 265 mls/hr IV Q12H [facility] Insulin Glargine (Insulin Glargine,Hum.Rec.Anlog 100 Unit/Ml 10 Ml Vial) 17 unit SUBCUT BEDTIME [facility] Last Admin: 01/15/22 02:00 Dose: 17 unit Documented By: BIBI-HELENE Insulin Human Lispro (Insulin Lispro 100 Unit/Ml 3 Ml Vial) 0 unit SUBCUT QIDACHS [facility]; Protocol Last Admin: 01/15/22 08:08 Dose: 2 unit Documented By: SB [place] Carbonate ([place] Carbonate 300 Mg Capsule) 900 mg PO DAILY [facility] Melatonin (Melatonin 3 Mg Tablet) 6 mg PO BEDTIME PRN PRN Reason: Insomnia Multivitamins/Vitamin C (Multivitamin Tablet) 1 tab PO DAILY [facility] Non-Formulary Medication (Scwjqan-Bji-Fmgjg-Tenof Alafen [Genvoya]) 1 tab PO DAILY [facility] Omeprazole (Omeprazole 20 Mg Capsule.Dr) 20 mg PO DAILY@0630 [facility] Ondansetron HCl (Ondansetron Hcl 4 Mg/2 Ml Vial) 4 mg IVPUSH Q8H PRN PRN Reason: Nausea and Vomiting Pharmacy Consult (Consult Rx Perform Med Rec) 1 each MISCELLANE ONCE PRN PRN Reason: Consult order Pharmacy Consult (Consult Rx Vancomycin Dosing) 1 each MISCELLANE DAILY PRN PRN Reason: Consult order Polyethylene Glycol (Polyethylene Glycol 3350 17 Gm Powd.Pack) 17 gm PO DAILY [facility] Pravastatin Sodium (Pravastatin Sodium 40 Mg Tablet) 40 mg PO BEDTIME [facility] Pregabalin (Pregabalin 100 Mg Capsule) 100 mg PO BID [facility] Propranolol HCl (Propranolol Hcl 20 Mg Tablet) 20 mg PO DAILY [facility]; Protocol Risperidone (Risperidone 2 Mg Tablet) 2 mg PO DAILY@0900 [facility] Risperidone (Risperidone 3 Mg Tablet) 6 mg PO BEDTIME [facility] Senna (Sennosides 8.6 Mg Tablet) 17.2 mg PO DAILY@0900 [facility] Sodium Chloride (0.9 % Sodium Chloride Flush 3 Ml Syringe) 3 ml IVFLUSH QSHIFT [facility] Last Admin: 01/15/22 08:08 Dose: 3 ml Documented By: SB Tamsulosin HCl (Tamsulosin Hcl 0.4 Mg Capsule) 0.4 mg PO BEDTIME [facility] Labs CBC & Chem 7: 01/15/22 06:21 01/15/22 06:21 Labs: Laboratory Results - last 24 hr 01/14/22 01/14/22 01/14/22 20:19 20:19 20:54 MCV 86.9 MCH 29.5 MCHC 33.9 RDW 11.9 Plt Count 258 D MPV 10.4 Immature Gran % (Auto) 1.3 H Neut % (Auto) 76.6 H Lymph % (Auto) 13.6 L [place] % (Auto) 6.5 Eos % (Auto) 1.7 Baso % (Auto) 0.3 Lymph # (Auto) 2.1 [place] # (Auto) 1.0 Eos # (Auto) 0.3 Baso # (Auto) 0.0 Abs Immat Gran (auto) 0.20 H Absolute Neuts (auto) 12.1 H Absolute Nucleated RBC 0.000 Nucleated RBC % (auto) 0.0 Anion Gap 9 L Estim Creat Clear Calc 61.2 Estimated GFR > 60 POC Glucose 266 H Random Glucose 343 H D Lactic Acid Calcium 9.2 Urine Color Urine Appearance Urine pH Ur Specific [place] Urine Protein Urine Glucose (UA) Urine Ketones Urine Blood Urine Nitrite Ur Leukocyte Esterase Urine RBC Urine WBC Ur Squamous Epith Cells Urine Bacteria Hyaline Casts COVID-19 ([facility]) COVID-19 Clin Com 01/14/22 01/14/22 01/15/22 21:21 22:54 00:54 MCV MCH MCHC RDW Plt Count MPV Immature Gran % (Auto) Neut % (Auto) Lymph % (Auto) [place] % (Auto) Eos % (Auto) Baso % (Auto) Lymph # (Auto) [place] # (Auto) Eos # (Auto) Baso # (Auto) Abs Immat Gran (auto) Absolute Neuts (auto) Absolute Nucleated RBC Nucleated RBC % (auto) Anion Gap Estim Creat Clear Calc Estimated GFR POC Glucose Random Glucose Lactic Acid 1.2 Calcium Urine Color Yellow Urine Appearance Clear Urine pH 7.0 Ur Specific [place] 1.015 Urine Protein Negative Urine Glucose (UA) >=1000 H Urine Ketones Negative Urine Blood Negative Urine Nitrite Negative Ur Leukocyte Esterase Negative Urine RBC 0-2 Urine WBC 0-5 Ur Squamous Epith Cells 0-2 Urine Bacteria None Seen Hyaline Casts 0-2 COVID-19 ([facility]) Negative COVID-19 Clin Com See Note 01/15/22 01/15/22 01/15/22 06:21 06:21 07:37 MCV 87.4 MCH 29.7 MCHC 33.9 RDW 11.9 Plt Count 235 MPV 10.2 Immature Gran % (Auto) 1.2 H Neut % (Auto) 78.8 H Lymph % (Auto) 12.3 L [place] % (Auto) 5.9 Eos % (Auto) 1.5 Baso % (Auto) 0.3 Lymph # (Auto) 1.8 [place] # (Auto) 0.9 Eos # (Auto) 0.2 Baso # (Auto) 0.0 Abs Immat Gran (auto) 0.17 H Absolute Neuts (auto) 11.3 H Absolute Nucleated RBC 0.000 Nucleated RBC % (auto) 0.0 Anion Gap 10 L Estim Creat Clear Calc 74.2 Estimated GFR > 60 POC Glucose 195 H Random Glucose 211 H Lactic Acid Calcium 8.7 Urine Color Urine Appearance Urine pH Ur Specific [place] Urine Protein Urine Glucose (UA) Urine Ketones Urine Blood Urine Nitrite Ur Leukocyte Esterase Urine RBC Urine WBC Ur Squamous Epith Cells Urine Bacteria Hyaline Casts COVID-19 ([facility]) COVID-19 Clin Com Assessment and Plan (1) Diabetic foot infection: Status: Acute Plan 56-year-old male with pertinent history of diabetic foot ulcer with chronic osteomyelitis, history of HIV and hepatitis, BPH, insulin-dependent diabetes mellitus, gastroesophageal reflux disease, mood disorder who was sent to the emergency department for evaluation of elevated blood glucose. Uncontrolled diabetes mellitus with hyperglycemia:? basal bolus insulin DFU with chronic OM and active drainage RLE continue vanc, cefepime, ID and vascular eval Mood disorder Continue benztropine, lithium, propranolol, pregabalin, risperidone HIV continue Genvoya BPH Continue finasteride and Flomax Gastroesophageal reflux disease On PPI DVT prophylaxis:? Defer Lovenox until vascular surgery evaluation Full code reason for continued hospitalization:iv abx, may need surgical intervention Time Spent With Patient Time: Total time managing care of this patient today ____ minutes. Quality Stroke Does the patient have a stroke diagnosis?: No VTE Prior VTE?: No VTE Risk Level:: Medical - moderate - high VTE Device Contraindication: Treatment Not Indicated VTE Drug Contraindication: Treatment Not Indicated
[2022-01-15] MEDS: vancomycin HCL 750 MG in 0.9 % Sodium Chloride 250 ML 265 MG IV (10:51)
[2022-01-15 11:24] LABS: Glucose, Whole Blood 232 mg/dL (60-115)
--- NOTE | 2022-01-15 14:43 | MHC.CM.PN ---
CM MET WITH PT AND INVESTMENT ASSOCIATE.PT RESIDES IN A [facility], CONTACT AT [facility] ([phone]) PT STATES HE IS ACTIVE WITH [facility] FOR DRESSING CHANGES, WILL SEND RETURN REFERRAL. +HCP FUNMILAYO INGRAM X3. PCP DR. HARRIS. DP: HOME WITH [facility], STAFF TO TRANSPORT. CM WILL CONTINUE TO FOLLOW
[2022-01-15 15:45] LABS: Glucose, Whole Blood 215 mg/dL (60-115)
[2022-01-15 20:01] LABS: Glucose, Whole Blood 262 mg/dL (60-115)
[2022-01-15] MEDS: Pregabalin 100 MG CAPSULE PO (20:32)
[2022-01-15] MEDS: risperiDONE 3 MG TABLET 6 MG PO (20:32)
[2022-01-15] MEDS: Tamsulosin HCL 0.4 MG CAPSULE PO (20:32)
[2022-01-15] MEDS: Pravastatin Sodium 40 MG TABLET PO (20:32)
[2022-01-15] MEDS: Benztropine Mesylate 1 MG TABLET 2 MG PO (20:32)
--- NOTE | 2022-01-15 23:37 | P.CNID_ITS ---
History of Present Illness Data of Consult Service Date: 01/15/22 Requesting physician: Drake Arnold Primary Care Provider: Shell Lopez MD HPI Reason for consult: right diabetic foot infection,HIV He presents with worsening right foot swelling and discomfort with exudate near first toe area. He has had multiple treatment including IV antibiotics over last year. He had Group B strep sepsis and six weeks IV antibiotics 06/2021. He had enterococcus faecalis bacteremia 10/11/2021. He doesnt have MRSA recorded. Review of Systems Review of Systems: Yes all other systems are reviewed and are negative PMFSH Past Medical History Medical History BPH w urinary obs/LUTS Callus of foot Chronic prostatitis Diabetic foot ulcers Elevated C-reactive protein (CRP) Elevated erythrocyte sedimentation rate Enterococcal bacteremia Erectile dysfunction due to arterial insufficiency Eschar of foot Hepatitis HIV (human immunodeficiency virus infection) Open wnd foot-complicated Osteomyelitis of left foot Sepsis Urinary hesitancy Family History Family History Father No problems noted. Mother No problems noted. Family history: reviewed and not pertinent Surgical History Surgical History No pertinent past surgical history Social History Social History Household Members: Other Household Members Other:: skilled nursing Housing: House Housing Other:: retirement Do you presently have visiting nurse or other home services: Yes Unable to assess alcohol history related to: Unknown Alcohol intake: never Patient Tobacco Use Status: Never used Tobacco Tobacco use type: Cigarette Cigarette Packs Per Day: 1 Cigarettes Per Day: 20.0 Second Hand Smoke Exposure: Yes service: No Current occupational status: unemployed Meds Allergies Allergy/AdvReac Type Severity Reaction Status Date / Time acetaminophen [From TYLENOL] Allergy Unknown UNKNOWN Verified 01/13/22 14:13 aspirin [ASA] Allergy Unknown AGITATION Verified 01/13/22 14:13 trazodone [TRAZODONE] AdvReac Unknown HYPER Verified 01/13/22 14:13 Active Medications: Current Medications Acetaminophen (Acetaminophen 325 Mg Tablet) 650 mg PO Q6H PRN PRN Reason: Pain, Mild (Pain Scale 1-3) Benztropine Mesylate (Benztropine Mesylate 1 Mg Tablet) 2 mg PO BID [facility] Last Admin: 01/15/22 20:32 Dose: 2 mg Dextrose (Dextrose 50 % 25 Gm/50 Ml Syringe) 25 gm IVPUSH Q15M PRN; Protocol PRN Reason: per Hypoglycemia Standing Ord. Finasteride (Finasteride 5 Mg Tablet) 5 mg PO DAILY [facility] Glucose (Glucose Gel 15 Gm Gel..Gram.) 15 gm PO Q15M PRN; Protocol PRN Reason: per Hypoglycemia Standing Ord. Cefepime HCl 2 gm/ Sodium (Chloride) 50 mls @ 100 mls/hr IV Q8H [facility] Last Infusion: 01/15/22 18:20 Dose: Infused Vancomycin HCl 750 mg/ Sodium (Chloride) 265 mls @ 265 mls/hr IV Q12H [facility] Last Infusion: 01/15/22 12:00 Dose: Infused Insulin Glargine (Insulin Glargine,Hum.Rec.Anlog 100 Unit/Ml 10 Ml Vial) 17 unit SUBCUT BEDTIME [facility] Last Admin: 01/15/22 20:33 Dose: 17 unit Insulin Human Lispro (Insulin Lispro 100 Unit/Ml 3 Ml Vial) 0 unit SUBCUT QIDACHS [facility]; Protocol Last Admin: 01/15/22 20:32 Dose: 6 unit [place] Carbonate ([place] Carbonate 300 Mg Capsule) 900 mg PO DAILY [facility] Melatonin (Melatonin 3 Mg Tablet) 6 mg PO BEDTIME PRN PRN Reason: Insomnia Multivitamins/Vitamin C (Multivitamin Tablet) 1 tab PO DAILY [facility] Non-Formulary Medication (Birayzc-Xoq-Edcqu-Tenof Alafen [Genvoya]) 1 tab PO DAILY [facility] Omeprazole (Omeprazole 20 Mg Capsule.Dr) 20 mg PO DAILY@0630 [facility] Ondansetron HCl (Ondansetron Hcl 4 Mg/2 Ml Vial) 4 mg IVPUSH Q8H PRN PRN Reason: Nausea and Vomiting Pharmacy Consult (Consult Rx Perform Med Rec) 1 each MISCELLANE ONCE PRN PRN Reason: Consult order Polyethylene Glycol (Polyethylene Glycol 3350 17 Gm Powd.Pack) 17 gm PO DAILY [facility] Pravastatin Sodium (Pravastatin Sodium 40 Mg Tablet) 40 mg PO BEDTIME [facility] Last Admin: 01/15/22 20:32 Dose: 40 mg Pregabalin (Pregabalin 100 Mg Capsule) 100 mg PO BID [facility] Last Admin: 01/15/22 20:32 Dose: 100 mg Propranolol HCl (Propranolol Hcl 20 Mg Tablet) 20 mg PO DAILY [facility]; Protocol Risperidone (Risperidone 2 Mg Tablet) 2 mg PO DAILY@0900 [facility] Risperidone (Risperidone 3 Mg Tablet) 6 mg PO BEDTIME [facility] Last Admin: 01/15/22 20:32 Dose: 6 mg Senna (Sennosides 8.6 Mg Tablet) 17.2 mg PO DAILY@0900 [facility] Sodium Chloride (0.9 % Sodium Chloride Flush 3 Ml Syringe) 3 ml IVFLUSH QSHIFT [facility] Last Admin: 01/15/22 20:37 Dose: 3 ml Tamsulosin HCl (Tamsulosin Hcl 0.4 Mg Capsule) 0.4 mg PO BEDTIME [facility] Last Admin: 01/15/22 20:32 Dose: 0.4 mg Home Medications Medication Instructions Recorded Confirmed Last Taken Type benztropine 2 mg tablet 2 mg PO BID 02/16/21 01/15/22 Unknown History elviteg 150 mg-cob 150 mg-emtricit 1 tab PO DAILY 02/16/21 01/15/22 Unknown History 200 mg-tenofo alafenam 10 mg tablet (Genvoya) lithium carbonate 300 mg tablet 900 mg PO DAILY 02/16/21 01/15/22 Unknown History pravastatin 40 mg tablet 40 mg PO BEDTIME 02/16/21 01/15/22 Unknown History propranolol 20 mg tablet 20 mg PO DAILY 02/16/21 01/15/22 Unknown History risperidone 3 mg tablet 6 mg PO BEDTIME 02/16/21 01/15/22 Unknown History insulin aspar prot-insulin aspart 15 unit subcut DAILY@0900 03/05/21 01/15/22 Unknown History 100 unit/mL (70-30) subcutaneous pen (Novolog Mix 70-30FlexPen U-100) omeprazole 20 mg capsule,delayed 20 mg PO DAILY@0630 03/05/21 01/15/22 Unknown History release qbeyixsu-xbr-aoksu acid 0.4 1 tab PO DAILY 07/27/21 01/15/22 Unknown History mg-lycopene 300 mcg-lutein 250 mcg tablet ([facility]er[facility]) pregabalin 100 mg capsule 100 mg PO BID 07/27/21 01/15/22 Unknown History polyethylene glycol 3350 17 17 g PO DAILY 09/02/21 01/15/22 Unknown History gram/dose oral powder (Gavilax) ketoconazole 2 % shampoo 1 appl topical Q7D 10/12/21 01/15/22 Unknown History insulin aspar prot-insulin aspart 17 unit subcut DAILY@2100 01/01/22 01/15/22 Unknown History 100 unit/mL (70-30) subcutaneous pen (Novolog Mix 70-30FlexPen U-100) risperidone 2 mg tablet 2 mg PO DAILY@0900 01/01/22 01/15/22 Unknown History sennosides 8.6 mg tablet (senna) 17.2 mg PO DAILY@0900 01/01/22 01/15/22 Unknown History Physical Exam Vital Signs: Vital Signs: Last Vital Signs Temp 98.8 F 01/15/22 19:39 Pulse 74 01/15/22 19:39 Resp 18 01/15/22 19:39 BP 136/70 01/15/22 19:39 Pulse Ox 99 01/15/22 19:39 O2 Del Method 01/15/22 19:39 BMI result Body Mass Index 22.7 Const: General: cooperative HEENT: Head: Yes normal to inspection Face and sinus: Yes normal facial exam Mouth: Normal oral and palatal mucosa present Teeth and gingiva: dentition normal Eyes: General: appearance normal, both eyes and all related structures Pupils: Equal, round and reactive pupils present Resp: Effort & Inspection: normal respiratory effort Cardio: Rate: regular rate Rhythm: regular rhythm GI: Palpation (GI): Soft to palpation and nontender : General: Yes no CVA tenderness Back/Spine/Pelvis: Back: no CVA tenderness Skin: General skin exam: no rashes or lesions noted Neuro: General: moves all extremities Cranial nerves: Yes Equal, round and reactive pupils present Extrem: Other: right foot exudate first toe and plantar area scabbing Psych: Appearance: grossly normal Results Labs CBC & Chem 7: 01/15/22 06:21 01/15/22 06:21 Labs: Short CBC 01/15/22 Range/Units 06:21 WBC 14.3 H (4.8-10.8) X10*3/uL Hgb 11.1 L (14.0-18.0) g/dl Hct 32.7 L (42.0-52.0) % Plt Count 235 (160-400) X10*3/uL BMP 01/15/22 06:21 Sodium 141 Potassium 3.9 Chloride 111 H Carbon Dioxide 24 BUN 11 Creatinine 0.99 Calcium 8.7 Assessment and Plan (1) Diabetic foot infection: Status: Acute He has chronic nonhealing infection foot. He has no infections that would require Vancomycin recently in past (2) Chronic osteomyelitis: Status: Acute Plan Continue piperacillin/tazobactam for now covers enterococcus if there. Stop Vancomycin. Definitive surgical procedure remove affected bone and wont need intermediate frame tender IV antibiotics. Time Spent With Patient Time: Total time managing care of this patient today ____ minutes.
[2022-01-16] VITALS: BP 112/64; PULSE 69; RESP 18; TEMP 36.8; O2SAT 97
[2022-01-16] MEDS: Piperacillin Sodium/Tazobactam 3.375 GM in 0.9 % Sodium Chloride 50 ML IV ×4 (00:15→18:27)
[2022-01-16] MEDS: vancomycin HCL 750 MG in 0.9 % Sodium Chloride 250 ML 265 MG IV (00:16)
[2022-01-16] MEDS: Omeprazole 20 MG CAPSULE.DR PO (05:34)
[2022-01-16 06:35] LABS: Hematocrit 33.9 % (42.0-52.0); Hemoglobin 11.4 g/dl (14.0-18.0); Mean Corpuscular HGB Conc 33.6 g/dl (31.0-36.0); Mean Corpuscular Hemoglobin 29.5 pg (27.0-33.0); Mean Corpuscular Volume 87.6 fL (80.0-98.0); Mean Platelet Volume 10.7 fL (9.4-12.4); Platelet Count 224 X10*3/uL (160-400); Red Blood Count 3.87 X10*6/uL (4.60-5.80); Red Cell Distribution Width 12.1 % (11.0-16.0)
[2022-01-16 06:45] LABS: Anion Gap 11 (12-20); Blood Urea Nitrogen 13 mg/dL (9-16); Calcium 9.1 mg/dL (8.4-10.2); Carbon Dioxide 26 mmol/L (22-29); Chloride 107 mmol/L (96-108); Creatinine Clr Calc Pharmacy 61.8; Estimated Glomerular Filt Rate > 60; Glucose Fasting 195 mg/dL (60-99); Potassium 3.9 mmol/L (3.3-5.1); Sodium 140 mmol/L (135-145)
[2022-01-16 07:48] LABS: Glucose, Whole Blood 193 mg/dL (60-115)
[2022-01-16 08:00] VITALS: BP 108/64; PULSE 84; RESP 17; TEMP 36.7; O2SAT 94
[2022-01-16] MEDS: Sennosides 8.6 MG TABLET 17.2 MG PO (08:13)
[2022-01-16] MEDS: Benztropine Mesylate 1 MG TABLET 2 MG PO ×2 (08:13→20:02)
[2022-01-16] MEDS: risperiDONE 2 MG TABLET PO (08:13)
[2022-01-16] MEDS: Propranolol HCL 20 MG TABLET PO (08:13)
[2022-01-16] MEDS: Multivitamin TABLET 1 TAB PO (08:13)
[2022-01-16] MEDS: Lithium Carbonate 300 MG CAPSULE 900 MG PO (08:13)
[2022-01-16] MEDS: Pregabalin 100 MG CAPSULE PO ×2 (08:13→20:02)
[2022-01-16] MEDS: Finasteride 5 MG TABLET PO (08:15)
[2022-01-16] MEDS: 0.9 % Sodium Chloride Flush 3 ML SYRINGE IVFLUSH ×3 (08:15→20:03)
[2022-01-16] MEDS: Insulin Lispro 100 UNIT/ML 3 ML VIAL SUBCUT ×4 (08:15→20:52)
--- NOTE | 2022-01-16 08:43 | P.PNIM_ITS ---
Subjective Subjective Date of Service: 01/16/22 Interval History: cc: hyperglycemia interval history: no complaints Cardiovascular Cardiovascular: Reports no additional cardiovascular complaints Respiratory Respiratory: Reports no additional respiratory complaints Physical Exam Vital Signs: Vital Signs: Last Vital Signs Temp 98.1 F 01/16/22 08:00 Pulse 84 01/16/22 08:00 Resp 17 01/16/22 08:00 BP 108/64 01/16/22 08:00 Pulse Ox 94 01/16/22 08:00 O2 Del Method 01/16/22 08:00 BMI result Body Mass Index 22.7 Const: General: cooperative HEENT: Head: Yes normal to inspection Face and sinus: Yes normal facial exam Mouth: Normal oral and palatal mucosa present Teeth and gingiva: dentition normal Eyes: General: appearance normal, both eyes and all related structures Pupils: Equal, round and reactive pupils present Resp: Effort & Inspection: normal respiratory effort Cardio: Rate: regular rate Rhythm: regular rhythm GI: Palpation (GI): Soft to palpation and nontender : General: Yes no CVA tenderness Back/Spine/Pelvis: Back: no CVA tenderness Skin: General skin exam: no rashes or lesions noted Neuro: General: moves all extremities Cranial nerves: Yes Equal, round and reactive pupils present Extrem: Other: right foot exudate first toe and plantar area scabbing Psych: Appearance: grossly normal Objective Data Active Medications Acetaminophen (Acetaminophen 325 Mg Tablet) 650 mg PO Q6H PRN PRN Reason: Pain, Mild (Pain Scale 1-3) Benztropine Mesylate (Benztropine Mesylate 1 Mg Tablet) 2 mg PO BID [facility] Last Admin: 01/16/22 08:13 Dose: 2 mg Documented By: STEPHANIE Dextrose (Dextrose 50 % 25 Gm/50 Ml Syringe) 25 gm IVPUSH Q15M PRN; Protocol PRN Reason: per Hypoglycemia Standing Ord. Finasteride (Finasteride 5 Mg Tablet) 5 mg PO DAILY [facility] Last Admin: 01/16/22 08:15 Dose: 5 mg Documented By: STEPHANIE Glucose (Glucose Gel 15 Gm Gel..Gram.) 15 gm PO Q15M PRN; Protocol PRN Reason: per Hypoglycemia Standing Ord. Piperacillin Sod/Tazobactam (Sod 3.375 gm/ Sodium Chloride) 50 mls @ 100 mls/hr IV Q6H [facility] Last Infusion: 01/16/22 06:15 Dose: 100 mls/hr Documented By: PARIS Insulin Glargine (Insulin Glargine,Hum.Rec.Anlog 100 Unit/Ml 10 Ml Vial) 17 unit SUBCUT BEDTIME [facility] Last Admin: 01/15/22 20:33 Dose: 17 unit Documented By: PARIS Insulin Human Lispro (Insulin Lispro 100 Unit/Ml 3 Ml Vial) 0 unit SUBCUT QIDACHS [facility]; Protocol Last Admin: 01/16/22 08:15 Dose: 2 unit Documented By: STEPHANIE [place] Carbonate ([place] Carbonate 300 Mg Capsule) 900 mg PO DAILY [facility] Last Admin: 01/16/22 08:13 Dose: 900 mg Documented By: STEPHANIE Melatonin (Melatonin 3 Mg Tablet) 6 mg PO BEDTIME PRN PRN Reason: Insomnia Multivitamins/Vitamin C (Multivitamin Tablet) 1 tab PO DAILY [facility] Last Admin: 01/16/22 08:13 Dose: 1 tab Documented By: STEPHANIE Non-Formulary Medication (Cssqppq-Zdc-Cozex-Tenof Alafen [Genvoya]) 1 tab PO DAILY [facility] Omeprazole (Omeprazole 20 Mg Capsule.) 20 mg PO DAILY@0630 [facility] Last Admin: 01/16/22 05:34 Dose: 20 mg Documented By: PARIS Ondansetron HCl (Ondansetron Hcl 4 Mg/2 Ml Vial) 4 mg IVPUSH Q8H PRN PRN Reason: Nausea and Vomiting Pharmacy Consult (Consult Rx Perform Med Rec) 1 each MISCELLANE ONCE PRN PRN Reason: Consult order Polyethylene Glycol (Polyethylene Glycol 3350 17 Gm Powd.Pack) 17 gm PO DAILY [facility] Last Admin: 01/16/22 08:21 Dose: Not Given Documented By: STEPHANIE Non-Admin Reason: Patient Refused Pravastatin Sodium (Pravastatin Sodium 40 Mg Tablet) 40 mg PO BEDTIME [facility] Last Admin: 01/15/22 20:32 Dose: 40 mg Documented By: PARIS Pregabalin (Pregabalin 100 Mg Capsule) 100 mg PO BID [facility] Last Admin: 01/16/22 08:13 Dose: 100 mg Documented By: STEPHANIE Propranolol HCl (Propranolol Hcl 20 Mg Tablet) 20 mg PO DAILY [facility]; Protocol Last Admin: 01/16/22 08:13 Dose: 20 mg Documented By: STEPHANIE Risperidone (Risperidone 2 Mg Tablet) 2 mg PO DAILY@0900 [facility] Last Admin: 01/16/22 08:13 Dose: 2 mg Documented By: STEPHANIE Risperidone (Risperidone 3 Mg Tablet) 6 mg PO BEDTIME [facility] Last Admin: 01/15/22 20:32 Dose: 6 mg Documented By: PARIS Senna (Sennosides 8.6 Mg Tablet) 17.2 mg PO DAILY@0900 [facility] Last Admin: 01/16/22 08:13 Dose: 17.2 mg Documented By: STEPHANIE Sodium Chloride (0.9 % Sodium Chloride Flush 3 Ml Syringe) 3 ml IVFLUSH QSHIFT [facility] Last Admin: 01/16/22 08:15 Dose: 3 ml Documented By: STEPHANIE Tamsulosin HCl (Tamsulosin Hcl 0.4 Mg Capsule) 0.4 mg PO BEDTIME [facility] Last Admin: 01/15/22 20:32 Dose: 0.4 mg Documented By: PARIS Labs CBC & Chem 7: 01/16/22 06:05 01/16/22 06:05 Labs: Laboratory Results - last 24 hr 01/15/22 01/15/22 01/15/22 11:05 15:41 19:42 MCV MCH MCHC RDW Plt Count MPV Absolute Nucleated RBC Nucleated RBC % (auto) Anion Gap Estim Creat Clear Calc Estimated GFR POC Glucose 232 H 215 H 262 H Fasting Glucose Calcium 01/16/22 01/16/22 01/16/22 06:05 06:05 07:44 MCV 87.6 MCH 29.5 MCHC 33.6 RDW 12.1 Plt Count 224 MPV 10.7 Absolute Nucleated RBC 0.000 Nucleated RBC % (auto) 0.0 Anion Gap 11 L Estim Creat Clear Calc 61.8 Estimated GFR > 60 POC Glucose 193 H Fasting Glucose 195 H Calcium 9.1 Microbiology Microbiology Results: Microbiology 01/14/22 22:54 Blood Culture - Preliminary Blood - Venous No growth after 24 hours. 01/14/22 22:54 Blood Culture - Preliminary Blood - Venous No growth after 24 hours. Assessment and Plan (1) Diabetic foot infection: Status: Acute Plan 56-year-old male with pertinent history of diabetic foot ulcer with chronic osteomyelitis, history of HIV and hepatitis, BPH, insulin-dependent diabetes mellitus, gastroesophageal reflux disease, mood disorder who was sent to the emergency department for evaluation of elevated blood glucose. Uncontrolled diabetes mellitus with hyperglycemia:? basal bolus insulin DFU with chronic OM and active drainage RLE ID appreciated, changed to zosyn but likely needs amputation, follow up vascular Mood disorder Continue benztropine, lithium, propranolol, pregabalin, risperidone HIV continue Genvoya BPH Continue finasteride and Flomax Gastroesophageal reflux disease On PPI DVT prophylaxis:? Lovenox Full code reason for continued hospitalization:iv abx, may need surgical intervention Time Spent With Patient Time: Total time managing care of this patient today ____ minutes. Quality Stroke Does the patient have a stroke diagnosis?: No VTE Prior VTE?: No VTE Risk Level:: Medical - moderate - high VTE Device Contraindication: Treatment Not Indicated VTE Drug Contraindication: Treatment Not Indicated
[2022-01-16] MEDS: Enoxaparin Sodium 40 MG/0.4 ML SYRINGE SUBCUT (10:34)
[2022-01-16 11:21] LABS: Glucose, Whole Blood 227 mg/dL (60-115)
[2022-01-16 15:32] LABS: Glucose, Whole Blood 155 mg/dL (60-115)
[2022-01-16 16:00] VITALS: BP 104/60; PULSE 79; RESP 18; TEMP 36.4; O2SAT 98
[2022-01-16 20:00] VITALS: BP 145/61; PULSE 66; RESP 18; TEMP 36.4; O2SAT 100
[2022-01-16] MEDS: risperiDONE 3 MG TABLET 6 MG PO (20:02)
[2022-01-16] MEDS: Pravastatin Sodium 40 MG TABLET PO (20:02)
[2022-01-16] MEDS: Insulin Glargine,Hum.rec.anlog 100 UNIT/ML 10 ML VIAL 17 UNIT SUBCUT (20:02)
[2022-01-16] MEDS: Tamsulosin HCL 0.4 MG CAPSULE PO (20:02)
[2022-01-16 20:38] LABS: Glucose, Whole Blood 211 mg/dL (60-115)
[2022-01-17] VITALS: BP 113/61; PULSE 67; RESP 18; TEMP 36.4; O2SAT 97
[2022-01-17] MEDS: Piperacillin Sodium/Tazobactam 3.375 GM in 0.9 % Sodium Chloride 50 ML IV ×4 (00:23→18:37)
[2022-01-17] MEDS: Omeprazole 20 MG CAPSULE.DR PO (05:37)
[2022-01-17 07:00] VITALS: BP 109/63; PULSE 67; RESP 16; TEMP 36.1; O2SAT 98
[2022-01-17 07:25] LABS: Glucose, Whole Blood 139 mg/dL (60-115)
[2022-01-17 07:54] VITALS: BP 132/74; PULSE 68; RESP 18; TEMP 36.6; O2SAT 98
[2022-01-17] MEDS: Enoxaparin Sodium 40 MG/0.4 ML SYRINGE SUBCUT (09:15)
[2022-01-17] MEDS: Finasteride 5 MG TABLET PO (09:15)
[2022-01-17] MEDS: Pregabalin 100 MG CAPSULE PO ×2 (09:15→20:48)
[2022-01-17] MEDS: Multivitamin TABLET 1 TAB PO (09:15)
[2022-01-17] MEDS: risperiDONE 2 MG TABLET PO (09:15)
[2022-01-17] MEDS: Benztropine Mesylate 1 MG TABLET 2 MG PO ×2 (09:16→20:48)
[2022-01-17] MEDS: 0.9 % Sodium Chloride Flush 3 ML SYRINGE IVFLUSH ×2 (09:16→20:52)
[2022-01-17] MEDS: Lithium Carbonate 300 MG CAPSULE 900 MG PO (09:16)
[2022-01-17] MEDS: Propranolol HCL 20 MG TABLET PO (09:16)
[2022-01-17] MEDS: Sennosides 8.6 MG TABLET 17.2 MG PO (09:16)
--- NOTE | 2022-01-17 09:17 | P.PNIM_ITS ---
Subjective Subjective Date of Service: 01/17/22 Interval History: cc: hyperglycemia interval history: no complaints Cardiovascular Cardiovascular: Reports no additional cardiovascular complaints Respiratory Respiratory: Reports no additional respiratory complaints Physical Exam Vital Signs: Vital Signs: Last Vital Signs Temp 98 F 01/17/22 07:54 Pulse 68 01/17/22 07:54 Resp 18 01/17/22 07:54 BP 132/74 01/17/22 07:54 Pulse Ox 98 01/17/22 07:54 O2 Del Method 01/17/22 07:00 BMI result Body Mass Index 22.7 Const: General: cooperative HEENT: Head: Yes normal to inspection Face and sinus: Yes normal facial exam Mouth: Normal oral and palatal mucosa present Teeth and gingiva: dentition normal Eyes: General: appearance normal, both eyes and all related structures Pupils: Equal, round and reactive pupils present Resp: Effort & Inspection: normal respiratory effort Cardio: Rate: regular rate Rhythm: regular rhythm GI: Palpation (GI): Soft to palpation and nontender : General: Yes no CVA tenderness Back/Spine/Pelvis: Back: no CVA tenderness Skin: General skin exam: no rashes or lesions noted Neuro: General: moves all extremities Cranial nerves: Yes Equal, round and reactive pupils present Extrem: Other: right foot exudate first toe and plantar area scabbing Psych: Appearance: grossly normal Objective Data Active Medications Acetaminophen (Acetaminophen 325 Mg Tablet) 650 mg PO Q6H PRN PRN Reason: Pain, Mild (Pain Scale 1-3) Benztropine Mesylate (Benztropine Mesylate 1 Mg Tablet) 2 mg PO BID [facility] Last Admin: 01/17/22 09:16 Dose: 2 mg Documented By: LANDRY Dextrose (Dextrose 50 % 25 Gm/50 Ml Syringe) 25 gm IVPUSH Q15M PRN; Protocol PRN Reason: per Hypoglycemia Standing Ord. Enoxaparin Sodium (Enoxaparin Sodium 40 Mg/0.4 Ml Syringe) 40 mg SUBCUT Q24H [facility] Last Admin: 01/17/22 09:15 Dose: 40 mg Documented By: LANDRY Finasteride (Finasteride 5 Mg Tablet) 5 mg PO DAILY [facility] Last Admin: 01/17/22 09:15 Dose: 5 mg Documented By: REGEMA Glucose (Glucose Gel 15 Gm Gel..Gram.) 15 gm PO Q15M PRN; Protocol PRN Reason: per Hypoglycemia Standing Ord. Piperacillin Sod/Tazobactam (Sod 3.375 gm/ Sodium Chloride) 50 mls @ 100 mls/hr IV Q6H [facility] Last Infusion: 01/17/22 06:11 Dose: 0 mls/hr Documented By: DAYANA Insulin Glargine (Insulin Glargine,Hum.Rec.Anlog 100 Unit/Ml 10 Ml Vial) 17 unit SUBCUT BEDTIME [facility] Last Admin: 01/16/22 20:02 Dose: 17 unit Documented By: DAYANA Insulin Human Lispro (Insulin Lispro 100 Unit/Ml 3 Ml Vial) 0 unit SUBCUT QIDACHS [facility]; Protocol Last Admin: 01/17/22 07:33 Dose: Not Given Documented By: LANDRY Non-Admin Reason: No Insulin Coverage [place] Carbonate ([place] Carbonate 300 Mg Capsule) 900 mg PO DAILY [facility] Last Admin: 01/17/22 09:16 Dose: 900 mg Documented By: LANDRY Melatonin (Melatonin 3 Mg Tablet) 6 mg PO BEDTIME PRN PRN Reason: Insomnia Multivitamins/Vitamin C (Multivitamin Tablet) 1 tab PO DAILY [facility] Last Admin: 01/17/22 09:15 Dose: 1 tab Documented By: LANDRY Non-Formulary Medication (Gutlpdg-Lyn-Hmjxk-Tenof Alafen [Genvoya]) 1 tab PO DAILY [facility] Omeprazole (Omeprazole 20 Mg Capsule.) 20 mg PO DAILY@0630 [facility] Last Admin: 01/17/22 05:37 Dose: 20 mg Documented By: DAYANA Ondansetron HCl (Ondansetron Hcl 4 Mg/2 Ml Vial) 4 mg IVPUSH Q8H PRN PRN Reason: Nausea and Vomiting Pharmacy Consult (Consult Rx Perform Med Rec) 1 each MISCELLANE ONCE PRN PRN Reason: Consult order Polyethylene Glycol (Polyethylene Glycol 3350 17 Gm Powd.Pack) 17 gm PO DAILY [facility] Last Admin: 01/17/22 09:15 Dose: Not Given Documented By: LANDRY Non-Admin Reason: Patient Refused Pravastatin Sodium (Pravastatin Sodium 40 Mg Tablet) 40 mg PO BEDTIME [facility] Last Admin: 01/16/22 20:02 Dose: 40 mg Documented By: DAYANA Pregabalin (Pregabalin 100 Mg Capsule) 100 mg PO BID [facility] Last Admin: 01/17/22 09:15 Dose: 100 mg Documented By: COTEMA Propranolol HCl (Propranolol Hcl 20 Mg Tablet) 20 mg PO DAILY [facility]; Protocol Last Admin: 01/17/22 09:16 Dose: 20 mg Documented By: LANDRY Risperidone (Risperidone 2 Mg Tablet) 2 mg PO DAILY@0900 [facility] Last Admin: 01/17/22 09:15 Dose: 2 mg Documented By: RGEEMA Risperidone (Risperidone 3 Mg Tablet) 6 mg PO BEDTIME [facility] Last Admin: 01/16/22 20:02 Dose: 6 mg Documented By: DAYANA Senna (Sennosides 8.6 Mg Tablet) 17.2 mg PO DAILY@0900 [facility] Last Admin: 01/17/22 09:16 Dose: 17.2 mg Documented By: LANDRY Sodium Chloride (0.9 % Sodium Chloride Flush 3 Ml Syringe) 3 ml IVFLUSH QSHIFT [facility] Last Admin: 01/17/22 09:16 Dose: 3 ml Documented By: LANDRY Tamsulosin HCl (Tamsulosin Hcl 0.4 Mg Capsule) 0.4 mg PO BEDTIME [facility] Last Admin: 01/16/22 20:02 Dose: 0.4 mg Documented By: DAYANA Labs CBC & Chem 7: 01/16/22 06:05 01/16/22 06:05 Labs: Laboratory Results - last 24 hr 01/16/22 01/16/22 01/16/22 11:16 15:28 20:23 POC Glucose 227 H 155 H 211 H 01/17/22 06:59 POC Glucose 139 H Microbiology Microbiology Results: Microbiology 01/14/22 22:54 Blood Culture - Preliminary Blood - Venous No growth after 48 hours. 01/14/22 22:54 Blood Culture - Preliminary Blood - Venous No growth after 48 hours. Assessment and Plan (1) Diabetic foot infection: Status: Acute Plan 56-year-old male with pertinent history of diabetic foot ulcer with chronic osteomyelitis, history of HIV and hepatitis, BPH, insulin-dependent diabetes mellitus, gastroesophageal reflux disease, mood disorder who was sent to the emergency department for evaluation of elevated blood glucose. Uncontrolled diabetes mellitus with hyperglycemia:? basal bolus insulin - better controlled DFU with chronic OM and active drainage RLE ID appreciated, changed to zosyn but likely needs amputation, follow up vascular Mood disorder Continue benztropine, lithium, propranolol, pregabalin, risperidone HIV continue Genvoya BPH Continue finasteride and Flomax Gastroesophageal reflux disease On PPI DVT prophylaxis:? Lovenox Full code reason for continued hospitalization:iv abx, may need surgical intervention Time Spent With Patient Time: Total time managing care of this patient today ____ minutes. Quality Stroke Does the patient have a stroke diagnosis?: No VTE Prior VTE?: No VTE Risk Level:: Medical - moderate - high VTE Device Contraindication: Treatment Not Indicated VTE Drug Contraindication: Treatment Not Indicated
[2022-01-17 11:11] LABS: Glucose, Whole Blood 232 mg/dL (60-115)
[2022-01-17] MEDS: Insulin Lispro 100 UNIT/ML 3 ML VIAL SUBCUT ×2 (11:41→20:48)
[2022-01-17 16:00] VITALS: BP 124/69; PULSE 77; RESP 18; TEMP 36.4; O2SAT 99
[2022-01-17 16:26] LABS: Glucose, Whole Blood 144 mg/dL (60-115)
[2022-01-17 19:49] LABS: Glucose, Whole Blood 228 mg/dL (60-115)
[2022-01-17 20:00] VITALS: BP 132/65; PULSE 80; RESP 18; TEMP 36.8; O2SAT 97
[2022-01-17] MEDS: risperiDONE 3 MG TABLET 6 MG PO (20:48)
[2022-01-17] MEDS: Pravastatin Sodium 40 MG TABLET PO (20:48)
[2022-01-17] MEDS: Tamsulosin HCL 0.4 MG CAPSULE PO (20:48)
[2022-01-17] MEDS: Insulin Glargine,Hum.rec.anlog 100 UNIT/ML 10 ML VIAL 17 UNIT SUBCUT (20:49)
[2022-01-18] MEDS: Piperacillin Sodium/Tazobactam 3.375 GM in 0.9 % Sodium Chloride 50 ML IV ×5 (00:52→23:35)
[2022-01-18 04:00] VITALS: BP 116/71; PULSE 70; RESP 18; TEMP 36.4; O2SAT 97
[2022-01-18 06:24] LABS: Hematocrit 36.3 % (42.0-52.0); Hemoglobin 12.2 g/dl (14.0-18.0); Mean Corpuscular HGB Conc 33.6 g/dl (31.0-36.0); Mean Corpuscular Hemoglobin 29.5 pg (27.0-33.0); Mean Corpuscular Volume 87.7 fL (80.0-98.0); Mean Platelet Volume 10.9 fL (9.4-12.4); Platelet Count 194 X10*3/uL (160-400); Red Blood Count 4.14 X10*6/uL (4.60-5.80); Red Cell Distribution Width 12.2 % (11.0-16.0); White Blood Count 9.4 X10*3/uL (4.8-10.8)
[2022-01-18] MEDS: Omeprazole 20 MG CAPSULE.DR PO (06:30)
[2022-01-18 06:57] VITALS: BP 119/56; PULSE 64; RESP 17; TEMP 36.6; O2SAT 99
[2022-01-18 07:14] LABS: Anion Gap 12 (12-20); Blood Urea Nitrogen 16 mg/dL (9-16); Calcium 9.4 mg/dL (8.4-10.2); Carbon Dioxide 24 mmol/L (22-29); Chloride 107 mmol/L (96-108); Creatinine Clr Calc Pharmacy 63.9; Estimated Glomerular Filt Rate > 60; Glucose Fasting 173 mg/dL (60-99); Potassium 4.2 mmol/L (3.3-5.1); Sodium 139 mmol/L (135-145)
[2022-01-18 07:20] LABS: Glucose, Whole Blood 162 mg/dL (60-115)
[2022-01-18] MEDS: Multivitamin TABLET 1 TAB PO (07:49)
[2022-01-18] MEDS: Propranolol HCL 20 MG TABLET PO (07:49)
[2022-01-18] MEDS: risperiDONE 2 MG TABLET PO (07:49)
[2022-01-18] MEDS: Benztropine Mesylate 1 MG TABLET 2 MG PO ×2 (07:49→22:23)
[2022-01-18] MEDS: Lithium Carbonate 300 MG CAPSULE 900 MG PO (07:49)
[2022-01-18] MEDS: Pregabalin 100 MG CAPSULE PO ×2 (07:49→22:25)
[2022-01-18] MEDS: Sennosides 8.6 MG TABLET 17.2 MG PO (07:49)
[2022-01-18] MEDS: Finasteride 5 MG TABLET PO (07:49)
[2022-01-18] MEDS: 0.9 % Sodium Chloride Flush 3 ML SYRINGE IVFLUSH ×3 (07:50→22:24)
[2022-01-18] MEDS: Enoxaparin Sodium 40 MG/0.4 ML SYRINGE SUBCUT (07:50)
[2022-01-18] MEDS: Insulin Lispro 100 UNIT/ML 3 ML VIAL SUBCUT ×4 (07:50→22:24)
--- NOTE | 2022-01-18 08:21 | HO.PM.IMPN ---
Subjective Subjective Date of Service: 01/18/22 Interval History: cc: hyperglycemia interval history: no complaints Cardiovascular Cardiovascular: Reports no additional cardiovascular complaints Respiratory Respiratory: Reports no additional respiratory complaints Physical Exam Vital Signs: Vital Signs: Last Vital Signs Temp 97.9 F 01/18/22 06:57 Pulse 64 01/18/22 06:57 Resp 17 01/18/22 06:57 BP 119/56 L 01/18/22 06:57 Pulse Ox 99 01/18/22 06:57 O2 Del Method 01/18/22 06:57 BMI result Body Mass Index 22.7 Const: General: cooperative HEENT: Head: Yes normal to inspection Face and sinus: Yes normal facial exam Mouth: Normal oral and palatal mucosa present Teeth and gingiva: dentition normal Eyes: General: appearance normal, both eyes and all related structures Pupils: Equal, round and reactive pupils present Resp: Effort & Inspection: normal respiratory effort Cardio: Rate: regular rate Rhythm: regular rhythm GI: Palpation (GI): Soft to palpation and nontender : General: Yes no CVA tenderness Back/Spine/Pelvis: Back: no CVA tenderness Skin: General skin exam: no rashes or lesions noted Neuro: General: moves all extremities Cranial nerves: Yes Equal, round and reactive pupils present Extrem: Other: right foot exudate first toe and plantar area scabbing Psych: Appearance: grossly normal Objective Data Active Medications Acetaminophen (Acetaminophen 325 Mg Tablet) 650 mg PO Q6H PRN PRN Reason: Pain, Mild (Pain Scale 1-3) Benztropine Mesylate (Benztropine Mesylate 1 Mg Tablet) 2 mg PO BID [facility] Last Admin: 01/18/22 07:49 Dose: 2 mg Documented By: LANDRY Dextrose (Dextrose 50 % 25 Gm/50 Ml Syringe) 25 gm IVPUSH Q15M PRN; Protocol PRN Reason: per Hypoglycemia Standing Ord. Enoxaparin Sodium (Enoxaparin Sodium 40 Mg/0.4 Ml Syringe) 40 mg SUBCUT Q24H [facility] Last Admin: 01/18/22 07:50 Dose: 40 mg Documented By: LANDRY Finasteride (Finasteride 5 Mg Tablet) 5 mg PO DAILY [facility] Last Admin: 01/18/22 07:49 Dose: 5 mg Documented By: REGEMA Glucose (Glucose Gel 15 Gm Gel..Gram.) 15 gm PO Q15M PRN; Protocol PRN Reason: per Hypoglycemia Standing Ord. Piperacillin Sod/Tazobactam (Sod 3.375 gm/ Sodium Chloride) 50 mls @ 100 mls/hr IV Q6H [facility] Last Infusion: 01/18/22 07:11 Dose: 0 mls/hr Documented By: LANDRY Insulin Glargine (Insulin Glargine,Hum.Rec.Anlog 100 Unit/Ml 10 Ml Vial) 17 unit SUBCUT BEDTIME [facility] Last Admin: 01/17/22 20:49 Dose: 17 unit Documented By: MANFRED Insulin Human Lispro (Insulin Lispro 100 Unit/Ml 3 Ml Vial) 0 unit SUBCUT QIDACHS [facility]; Protocol Last Admin: 01/18/22 07:50 Dose: 2 unit Documented By: LANDRY [place] Carbonate ([place] Carbonate 300 Mg Capsule) 900 mg PO DAILY [facility] Last Admin: 01/18/22 07:49 Dose: 900 mg Documented By: LANDRY Melatonin (Melatonin 3 Mg Tablet) 6 mg PO BEDTIME PRN PRN Reason: Insomnia Multivitamins/Vitamin C (Multivitamin Tablet) 1 tab PO DAILY [facility] Last Admin: 01/18/22 07:49 Dose: 1 tab Documented By: LANDRY Non-Formulary Medication (Ethuujh-Evm-Mnvxz-Tenof Alafen [Genvoya]) 1 tab PO DAILY [facility] Omeprazole (Omeprazole 20 Mg Capsule.) 20 mg PO DAILY@0630 [facility] Last Admin: 01/18/22 06:30 Dose: 20 mg Documented By: MANFRED Ondansetron HCl (Ondansetron Hcl 4 Mg/2 Ml Vial) 4 mg IVPUSH Q8H PRN PRN Reason: Nausea and Vomiting Pharmacy Consult (Consult Rx Perform Med Rec) 1 each MISCELLANE ONCE PRN PRN Reason: Consult order Polyethylene Glycol (Polyethylene Glycol 3350 17 Gm Powd.Pack) 17 gm PO DAILY [facility] Last Admin: 01/18/22 07:43 Dose: Not Given Documented By: LANDRY Non-Admin Reason: Patient Refused Pravastatin Sodium (Pravastatin Sodium 40 Mg Tablet) 40 mg PO BEDTIME [facility] Last Admin: 01/17/22 20:48 Dose: 40 mg Documented By: MANFRED Pregabalin (Pregabalin 100 Mg Capsule) 100 mg PO BID [facility] Last Admin: 01/18/22 07:49 Dose: 100 mg Documented By: LANDRY Propranolol HCl (Propranolol Hcl 20 Mg Tablet) 20 mg PO DAILY [facility]; Protocol Last Admin: 01/18/22 07:49 Dose: 20 mg Documented By: LANDRY Risperidone (Risperidone 2 Mg Tablet) 2 mg PO DAILY@0900 [facility] Last Admin: 01/18/22 07:49 Dose: 2 mg Documented By: LANDRY Risperidone (Risperidone 3 Mg Tablet) 6 mg PO BEDTIME [facility] Last Admin: 01/17/22 20:48 Dose: 6 mg Documented By: MANFRED Senna (Sennosides 8.6 Mg Tablet) 17.2 mg PO DAILY@0900 [facility] Last Admin: 01/18/22 07:49 Dose: 17.2 mg Documented By: LANDRY Sodium Chloride (0.9 % Sodium Chloride Flush 3 Ml Syringe) [facility] Last Admin: 01/18/22 07:50 Dose: 3 ml Documented By: LANDRY Tamsulosin HCl (Tamsulosin Hcl 0.4 Mg Capsule) 0.4 mg PO BEDTIME [facility] Last Admin: 01/17/22 20:48 Dose: 0.4 mg Documented By: MANFRED Labs CBC & Chem 7: 01/18/22 06:11 01/18/22 06:11 Labs: Laboratory Results - last 24 hr 01/17/22 01/17/22 01/17/22 11:05 16:20 19:39 MCV MCH MCHC RDW Plt Count MPV Absolute Nucleated RBC Nucleated RBC % (auto) Anion Gap Estim Creat Clear Calc Estimated GFR POC Glucose 232 H 144 H 228 H Fasting Glucose Calcium 01/18/22 01/18/22 01/18/22 06:11 06:11 07:01 MCV 87.7 MCH 29.5 MCHC 33.6 RDW 12.2 Plt Count 194 MPV 10.9 Absolute Nucleated RBC 0.000 Nucleated RBC % (auto) 0.0 Anion Gap 12 Estim Creat Clear Calc 63.9 Estimated GFR > 60 POC Glucose 162 H Fasting Glucose 173 H Calcium 9.4 Assessment and Plan (1) Diabetic foot infection: Status: Acute Plan 56-year-old male with pertinent history of diabetic foot ulcer with chronic osteomyelitis, history of HIV and hepatitis, BPH, insulin-dependent diabetes mellitus, gastroesophageal reflux disease, mood disorder who was sent to the emergency department for evaluation of elevated blood glucose. Uncontrolled diabetes mellitus with hyperglycemia:? basal bolus insulin - better controlled DFU with chronic OM and active drainage RLE ID appreciated, changed to zosyn follow up vascular - arterial duplex unremarkable Mood disorder Continue benztropine, lithium, propranolol, pregabalin, risperidone HIV continue Genvoya BPH Continue finasteride and Flomax Gastroesophageal reflux disease On PPI DVT prophylaxis:? Lovenox Full code reason for continued hospitalization:iv abx, may need surgical intervention Time Spent With Patient Time: Total time managing care of this patient today ____ minutes. Quality Stroke Does the patient have a stroke diagnosis?: No VTE Prior VTE?: No VTE Risk Level:: Medical - moderate - high VTE Device Contraindication: Treatment Not Indicated VTE Drug Contraindication: Treatment Not Indicated
[2022-01-18 11:11] LABS: Glucose, Whole Blood 202 mg/dL (60-115)
--- NOTE | 2022-01-18 11:46 | PM.CNGS ---
History of Present Illness Consult details Consult date: 01/18/22 Reason for consult: wound care Narrative: Complex 56-year-old gentleman with a history of diabetes and HIV has presented to the hospital on recurrent basis for nonhealing right foot ulcer. It is between the great and 2nd toe webspace. It penetrates fairly far back. It has been a continued problem for him. He now presents for vascular evaluation. Of note he has undergone noninvasive arterial testing. He had been seen by General surgery in late December or early January and subsequently discharged. It has remain nonhealing and he now presents to us for follow-up. Review of Systems Review of Systems: Yes all other systems are reviewed and are negative Constitutional: Constitutional: Reports no additional constitutional complaints ENT: Reports Normal hearing present Cardiovascular: Cardiovascular: Denies chest pain, Denies chest pain at rest, Denies chest pain with activity and Denies pedal edema Respiratory: Respiratory: Denies cough Gastrointestinal: Gastrointestinal: Denies abdominal pain Musculoskeletal: Musculoskeletal: Denies abnormal gait, Denies muscle cramps and Denies radiating pain into limb Integumentary/Breasts: Skin/Breast: Denies skin ulcer and Denies wounds Neurologic: Reports Normal hearing present and Denies abnormal gait Psychiatric: Psychiatric: Reports no additional psychiatric complaints PMFSH Past Medical History Medical History BPH w urinary obs/LUTS Callus of foot Chronic prostatitis Diabetic foot ulcers Elevated C-reactive protein (CRP) Elevated erythrocyte sedimentation rate Enterococcal bacteremia Erectile dysfunction due to arterial insufficiency Eschar of foot Hepatitis HIV (human immunodeficiency virus infection) Open wnd foot-complicated Osteomyelitis of left foot Sepsis Urinary hesitancy Family History Family History Father No problems noted. Mother No problems noted. Family history: reviewed and not pertinent Surgical History Surgical History No pertinent past surgical history Social History Social History Household Members: Other Household Members Other:: [facility] Housing: House Housing Other:: assisted Do you presently have visiting nurse or other home services: Yes Unable to assess alcohol history related to: Unknown Alcohol intake: never Patient Tobacco Use Status: Never used Tobacco Tobacco use type: Cigarette Cigarette Packs Per Day: 1 Cigarettes Per Day: 20.0 Second Hand Smoke Exposure: Yes service: No Current occupational status: unemployed Meds Allergies Allergy/AdvReac Type Severity Reaction Status Date / Time acetaminophen [From TYLENOL] Allergy Unknown UNKNOWN Verified 01/13/22 14:13 aspirin [ASA] Allergy Unknown AGITATION Verified 01/13/22 14:13 trazodone [TRAZODONE] AdvReac Unknown HYPER Verified 01/13/22 14:13 Active Medications: Current Medications Acetaminophen (Acetaminophen 325 Mg Tablet) 650 mg PO Q6H PRN PRN Reason: Pain, Mild (Pain Scale 1-3) Benztropine Mesylate (Benztropine Mesylate 1 Mg Tablet) 2 mg PO BID [facility] Last Admin: 01/18/22 07:49 Dose: 2 mg Dextrose (Dextrose 50 % 25 Gm/50 Ml Syringe) 25 gm IVPUSH Q15M PRN; Protocol PRN Reason: per Hypoglycemia Standing Ord. Enoxaparin Sodium (Enoxaparin Sodium 40 Mg/0.4 Ml Syringe) 40 mg SUBCUT Q24H [facility] Last Admin: 01/18/22 07:50 Dose: 40 mg Finasteride (Finasteride 5 Mg Tablet) 5 mg PO DAILY [facility] Last Admin: 01/18/22 07:49 Dose: 5 mg Glucose (Glucose Gel 15 Gm Gel..Gram.) 15 gm PO Q15M PRN; Protocol PRN Reason: per Hypoglycemia Standing Ord. Piperacillin Sod/Tazobactam (Sod 3.375 gm/ Sodium Chloride) 50 mls @ 100 mls/hr IV Q6H [facility] Last Infusion: 01/18/22 07:11 Dose: Infused Insulin Glargine (Insulin Glargine,Hum.Rec.Anlog 100 Unit/Ml 10 Ml Vial) 17 unit SUBCUT BEDTIME [facility] Last Admin: 01/17/22 20:49 Dose: 17 unit Insulin Human Lispro (Insulin Lispro 100 Unit/Ml 3 Ml Vial) 0 unit SUBCUT QIDACHS [facility]; Protocol Last Admin: 01/18/22 11:46 Dose: 4 unit [place] Carbonate ([place] Carbonate 300 Mg Capsule) 900 mg PO DAILY [facility] Last Admin: 01/18/22 07:49 Dose: 900 mg Melatonin (Melatonin 3 Mg Tablet) 6 mg PO BEDTIME PRN PRN Reason: Insomnia Multivitamins/Vitamin C (Multivitamin Tablet) 1 tab PO DAILY [facility] Last Admin: 01/18/22 07:49 Dose: 1 tab Omeprazole (Omeprazole 20 Mg Capsule.Dr) 20 mg PO DAILY@0630 [facility] Last Admin: 01/18/22 06:30 Dose: 20 mg Ondansetron HCl (Ondansetron Hcl 4 Mg/2 Ml Vial) 4 mg IVPUSH Q8H PRN PRN Reason: Nausea and Vomiting Pharmacy Consult (Consult Rx Perform Med Rec) 1 each MISCELLANE ONCE PRN PRN Reason: Consult order Polyethylene Glycol (Polyethylene Glycol 3350 17 Gm Powd.Pack) 17 gm PO DAILY [facility] Last Admin: 01/18/22 07:43 Dose: Not Given Pravastatin Sodium (Pravastatin Sodium 40 Mg Tablet) 40 mg PO BEDTIME [facility] Last Admin: 01/17/22 20:48 Dose: 40 mg Pregabalin (Pregabalin 100 Mg Capsule) 100 mg PO BID [facility] Last Admin: 01/18/22 07:49 Dose: 100 mg Propranolol HCl (Propranolol Hcl 20 Mg Tablet) 20 mg PO DAILY [facility]; Protocol Last Admin: 01/18/22 07:49 Dose: 20 mg Risperidone (Risperidone 2 Mg Tablet) 2 mg PO DAILY@0900 [facility] Last Admin: 01/18/22 07:49 Dose: 2 mg Risperidone (Risperidone 3 Mg Tablet) 6 mg PO BEDTIME [facility] Last Admin: 01/17/22 20:48 Dose: 6 mg Senna (Sennosides 8.6 Mg Tablet) 17.2 mg PO DAILY@0900 [facility] Last Admin: 01/18/22 07:49 Dose: 17.2 mg Sodium Chloride (0.9 % Sodium Chloride Flush 3 Ml Syringe) [facility] Last Admin: 01/18/22 07:50 Dose: 3 ml Tamsulosin HCl (Tamsulosin Hcl 0.4 Mg Capsule) 0.4 mg PO BEDTIME [facility] Last Admin: 01/17/22 20:48 Dose: 0.4 mg Home Medications Medication Instructions Recorded Confirmed Last Taken Type benztropine 2 mg tablet 2 mg PO BID 02/16/21 01/15/22 Unknown History elviteg 150 mg-cob 150 mg-emtricit 1 tab PO DAILY 02/16/21 01/15/22 Unknown History 200 mg-tenofo alafenam 10 mg tablet (Genvoya) lithium carbonate 300 mg tablet 900 mg PO DAILY 02/16/21 01/15/22 Unknown History pravastatin 40 mg tablet 40 mg PO BEDTIME 02/16/21 01/15/22 Unknown History propranolol 20 mg tablet 20 mg PO DAILY 02/16/21 01/15/22 Unknown History risperidone 3 mg tablet 6 mg PO BEDTIME 02/16/21 01/15/22 Unknown History insulin aspar prot-insulin aspart 15 unit subcut DAILY@0900 03/05/21 01/15/22 Unknown History 100 unit/mL (70-30) subcutaneous pen (Novolog Mix 70-30FlexPen U-100) omeprazole 20 mg capsule,delayed 20 mg PO DAILY@0630 03/05/21 01/15/22 Unknown History release yjxeunnv-abd-jnoop acid 0.4 1 tab PO DAILY 07/27/21 01/15/22 Unknown History mg-lycopene 300 mcg-lutein 250 mcg tablet (Cerovite Senior) pregabalin 100 mg capsule 100 mg PO BID 07/27/21 01/15/22 Unknown History polyethylene glycol 3350 17 17 g PO DAILY 09/02/21 01/15/22 Unknown History gram/dose oral powder (Gavilax) ketoconazole 2 % shampoo 1 appl topical Q7D 10/12/21 01/15/22 Unknown History insulin aspar prot-insulin aspart 17 unit subcut DAILY@2100 01/01/22 01/15/22 Unknown History 100 unit/mL (70-30) subcutaneous pen (Novolog Mix 70-30FlexPen U-100) risperidone 2 mg tablet 2 mg PO DAILY@0900 01/01/22 01/15/22 Unknown History sennosides 8.6 mg tablet (senna) 17.2 mg PO DAILY@0900 01/01/22 01/15/22 Unknown History Physical Exam Vital Signs: Vital Signs: Last Vital Signs Temp 97.9 F 01/18/22 06:57 Pulse 64 01/18/22 06:57 Resp 17 01/18/22 06:57 BP 119/56 L 01/18/22 06:57 Pulse Ox 99 01/18/22 06:57 O2 Del Method 01/18/22 06:57 BMI result Body Mass Index 22.7 Const: General: cooperative, healthy appearing and comfortable Orientation/consciousness: oriented to person, oriented to place and oriented to time HEENT: Head: Yes normal to inspection Neck: Neck: Yes normal visual inspection Carotids: no bruits Chest: Chest palpation & inspection: normal inspection of the chest Resp: Effort & Inspection: normal respiratory effort and able to speak in complete sentences Auscultation: clear to auscultation bilaterally, no crackles, no rales, no rhonchi and no wheezes Cardio: Rate: regular rate Rhythm: regular rhythm Heart sounds: S1 normal heart sound present and S2 normal heart sound present Bruits: no carotid bruits Peripheral pulses: Peripheral pulses 2+ throughout GI: Inspection: Yes normal to inspection Skin: Other: Ulcer right foot between the 1st and 2nd toe webspace penetrating all the way down to bone going fairly far back. Wounds: no wounds Hair: normal Neuro: General: oriented to person, oriented to place and oriented to time Cranial nerves: Yes CN's II-XII intact bilaterally and Yes Normal hearing present Cognition (Neuro): normal cognition Motor exam (neuro): 5/5 motor strength present throughout Extrem: Other: venous exam: No significant superficial varicosities or spider telangiectasias, minimal edema General: No clubbing, No cyanosis and No edema Psych: Appearance: grossly normal Mental Status: mental status grossly normal Speech and movement: Normal speech and movement present Results Labs Result diagrams: 01/18/22 06:11 01/18/22 06:11 Labs: Abnormal lab results 01/17/22 01/17/22 01/18/22 Range/Units 16:20 19:39 06:11 RBC 4.14 L (4.60-5.80) X10*6/uL Hgb 12.2 L (14.0-18.0) g/dl Hct 36.3 L (42.0-52.0) % POC Glucose 144 H 228 H (60-115) mg/dL Fasting Glucose (60-99) mg/dL 01/18/22 01/18/22 01/18/22 Range/Units 06:11 07:01 11:03 RBC (4.60-5.80) X10*6/uL Hgb (14.0-18.0) g/dl Hct (42.0-52.0) % POC Glucose 162 H 202 H (60-115) mg/dL Fasting Glucose 173 H (60-99) mg/dL Short CBC 01/18/22 Range/Units 06:11 WBC 9.4 (4.8-10.8) X10*3/uL Hgb 12.2 L (14.0-18.0) g/dl Hct 36.3 L (42.0-52.0) % Plt Count 194 (160-400) X10*3/uL BMP 01/18/22 06:11 Sodium 139 Potassium 4.2 Chloride 107 Carbon Dioxide 24 BUN 16 Creatinine 1.15 Calcium 9.4 Urine 01/14/22 Range/Units 21:21 Urine Color Yellow Urine Appearance Clear Urine pH 7.0 (5.0-9.0) Ur Specific [place] 1.015 (1.005-1.025) Urine Protein Negative (Neg-Trace) mg/dL Urine Glucose (UA) >=1000 H (Negative) mg/dL All other labs normal. Imaging Additional studies: Noninvasive arterial testing dated 01/17/2022 demonstrates no significant arterial disease. Assessment and Plan (1) Diabetic foot ulcer: Status: Acute Plan In short patient has a nonhealing diabetic foot ulcer of the right side. At the current time it appears to be stable. He has adequate vascular supply based on noninvasive testing. Due to the location of this ulcer in amputation of a single toe would not be possible as a penetrates fairly far back. And would require extensive amputation of the 1st and 2nd toe. He will be better served with a transmetatarsal amputation. Will discuss with the patient and possibly schedule for of this week. Thank you for allowing us to participate in his care. If there are any questions or concerns please do not hesitate to contact us Time Spent With Patient Time: Total time managing care of this patient today ____ minutes. Procedures Date of Service Date of Service: 01/18/22
[2022-01-18 14:49] VITALS: BP 131/69; PULSE 67; RESP 18; TEMP 37.4; O2SAT 99
--- NOTE | 2022-01-18 14:49 | MHC.CM.PN ---
PLAN IS TRANS-MET AMP ON SATURDAY 01/20 NA UPDATED. CASE MANAGEMENT FOLLOWING
[2022-01-18 15:35] LABS: Glucose, Whole Blood 227 mg/dL (60-115)
[2022-01-18 19:12] VITALS: BP 120/72; PULSE 67; RESP 18; TEMP 36.8; O2SAT 97
[2022-01-18 19:38] LABS: Glucose, Whole Blood 210 mg/dL (60-115)
[2022-01-18] MEDS: Tamsulosin HCL 0.4 MG CAPSULE PO (22:22)
[2022-01-18] MEDS: Pravastatin Sodium 40 MG TABLET PO (22:23)
[2022-01-18] MEDS: risperiDONE 3 MG TABLET 6 MG PO (22:23)
[2022-01-18] MEDS: Insulin Glargine,Hum.rec.anlog 100 UNIT/ML 10 ML VIAL 17 UNIT SUBCUT (22:23)
[2022-01-19 04:00] VITALS: BP 118/75; PULSE 63; RESP 18; TEMP 36.6; O2SAT 98
[2022-01-19] MEDS: Piperacillin Sodium/Tazobactam 3.375 GM in 0.9 % Sodium Chloride 50 ML IV ×3 (05:30→17:29)
[2022-01-19] MEDS: Omeprazole 20 MG CAPSULE.DR PO (05:31)
[2022-01-19 07:33] LABS: Glucose, Whole Blood 239 mg/dL (60-115)
[2022-01-19 07:47] VITALS: BP 114/71; PULSE 69; RESP 17; TEMP 36.5; O2SAT 99
[2022-01-19] MEDS: Insulin Lispro 100 UNIT/ML 3 ML VIAL SUBCUT ×4 (08:42→21:18)
[2022-01-19] MEDS: Pregabalin 100 MG CAPSULE PO ×2 (08:43→21:18)
[2022-01-19] MEDS: risperiDONE 2 MG TABLET PO (08:43)
[2022-01-19] MEDS: Finasteride 5 MG TABLET PO (08:43)
[2022-01-19] MEDS: Benztropine Mesylate 1 MG TABLET 2 MG PO ×2 (08:43→21:18)
[2022-01-19] MEDS: Multivitamin TABLET 1 TAB PO (08:43)
[2022-01-19] MEDS: Lithium Carbonate 300 MG CAPSULE 900 MG PO (08:43)
[2022-01-19] MEDS: Sennosides 8.6 MG TABLET 17.2 MG PO (08:43)
[2022-01-19] MEDS: Enoxaparin Sodium 40 MG/0.4 ML SYRINGE SUBCUT (08:43)
[2022-01-19] MEDS: 0.9 % Sodium Chloride Flush 3 ML SYRINGE IVFLUSH ×3 (08:44→21:21)
[2022-01-19] MEDS: Propranolol HCL 20 MG TABLET PO (08:45)
--- NOTE | 2022-01-19 09:46 | P.PNIM_ITS ---
Subjective Subjective Date of Service: 01/19/22 Interval History: cc: hyperglycemia interval history: no complaints ENT Ears, Nose, Mouth, and Throat: Reports Normal hearing present Cardiovascular Cardiovascular: Reports no additional cardiovascular complaints Respiratory Respiratory: Reports no additional respiratory complaints Neurologic Neurologic: Reports Normal hearing present Physical Exam Vital Signs: Vital Signs: Last Vital Signs Temp 97.7 F 01/19/22 07:47 Pulse 69 01/19/22 07:47 Resp 17 01/19/22 07:47 BP 114/71 01/19/22 07:47 Pulse Ox 99 01/19/22 07:47 O2 Del Method 01/19/22 07:47 BMI result Body Mass Index 22.7 Const: General: cooperative, healthy appearing and comfortable Orientation/consciousness: oriented to person, oriented to place and oriented to time HEENT: Head: Yes normal to inspection Neck: Neck: Yes normal visual inspection Carotids: no bruits Chest: Chest palpation & inspection: normal inspection of the chest Resp: Effort & Inspection: normal respiratory effort and able to speak in complete sentences Auscultation: clear to auscultation bilaterally, no crackles, no rales, no rhonchi and no wheezes Cardio: Rate: regular rate Rhythm: regular rhythm Heart sounds: S1 normal heart sound present and S2 normal heart sound present Bruits: no carotid bruits Peripheral pulses: Peripheral pulses 2+ throughout GI: Inspection: Yes normal to inspection Skin: Other: Ulcer right foot between the 1st and 2nd toe webspace penetrating all the way down to bone going fairly far back. Wounds: no wounds Hair: normal Neuro: General: oriented to person, oriented to place and oriented to time Cranial nerves: Yes CN's II-XII intact bilaterally and Yes Normal hearing present Cognition (Neuro): normal cognition Motor exam (neuro): 5/5 motor strength present throughout Extrem: Other: venous exam: No significant superficial varicosities or spider telangiectasias, minimal edema General: No clubbing, No cyanosis and No edema Psych: Appearance: grossly normal Mental Status: mental status grossly normal Speech and movement: Normal speech and movement present Objective Data Active Medications Acetaminophen (Acetaminophen 325 Mg Tablet) 650 mg PO Q6H PRN PRN Reason: Pain, Mild (Pain Scale 1-3) Benztropine Mesylate (Benztropine Mesylate 1 Mg Tablet) 2 mg PO BID [facility] Last Admin: 01/19/22 08:43 Dose: 2 mg Documented By: RICK Dextrose (Dextrose 50 % 25 Gm/50 Ml Syringe) 25 gm IVPUSH Q15M PRN; Protocol PRN Reason: per Hypoglycemia Standing Ord. Enoxaparin Sodium (Enoxaparin Sodium 40 Mg/0.4 Ml Syringe) 40 mg SUBCUT Q24H [facility] Last Admin: 01/19/22 08:43 Dose: 40 mg Documented By: RICK Finasteride (Finasteride 5 Mg Tablet) 5 mg PO DAILY [facility] Last Admin: 01/19/22 08:43 Dose: 5 mg Documented By: RICK Glucose (Glucose Gel 15 Gm Gel..Gram.) 15 gm PO Q15M PRN; Protocol PRN Reason: per Hypoglycemia Standing Ord. Piperacillin Sod/Tazobactam (Sod 3.375 gm/ Sodium Chloride) 50 mls @ 100 mls/hr IV Q6H [facility] Last Infusion: 01/19/22 06:17 Dose: 100 mls/hr Documented By: PARIS Insulin Glargine (Insulin Glargine,Hum.Rec.Anlog 100 Unit/Ml 10 Ml Vial) 17 unit SUBCUT BEDTIME [facility] Last Admin: 01/18/22 22:23 Dose: 17 unit Documented By: PARIS Insulin Human Lispro (Insulin Lispro 100 Unit/Ml 3 Ml Vial) 0 unit SUBCUT QIDACHS [facility]; Protocol Last Admin: 01/19/22 08:42 Dose: 4 unit Documented By: RICK [place] Carbonate ([place] Carbonate 300 Mg Capsule) 900 mg PO DAILY [facility] Last Admin: 01/19/22 08:43 Dose: 900 mg Documented By: RICK Melatonin (Melatonin 3 Mg Tablet) 6 mg PO BEDTIME PRN PRN Reason: Insomnia Multivitamins/Vitamin C (Multivitamin Tablet) 1 tab PO DAILY [facility] Last Admin: 01/19/22 08:43 Dose: 1 tab Documented By: RICK Omeprazole (Omeprazole 20 Mg Capsule.) 20 mg PO DAILY@0630 [facility] Last Admin: 01/19/22 05:31 Dose: 20 mg Documented By: PARIS Ondansetron HCl (Ondansetron Hcl 4 Mg/2 Ml Vial) 4 mg IVPUSH Q8H PRN PRN Reason: Nausea and Vomiting Pharmacy Consult (Consult Rx Perform Med Rec) 1 each MISCELLANE ONCE PRN PRN Reason: Consult order Polyethylene Glycol (Polyethylene Glycol 3350 17 Gm Powd.Pack) 17 gm PO DAILY [facility] Last Admin: 01/19/22 08:46 Dose: Not Given Documented By: RICK Non-Admin Reason: Patient Refused Pravastatin Sodium (Pravastatin Sodium 40 Mg Tablet) 40 mg PO BEDTIME [facility] Last Admin: 01/18/22 22:23 Dose: 40 mg Documented By: PARIS Pregabalin (Pregabalin 100 Mg Capsule) 100 mg PO BID [facility] Last Admin: 01/19/22 08:43 Dose: 100 mg Documented By: RICK Propranolol HCl (Propranolol Hcl 20 Mg Tablet) 20 mg PO DAILY [facility]; Protocol Last Admin: 01/19/22 08:45 Dose: 20 mg Documented By: RICK Risperidone (Risperidone 2 Mg Tablet) 2 mg PO DAILY@0900 [facility] Last Admin: 01/19/22 08:43 Dose: 2 mg Documented By: RICK Risperidone (Risperidone 3 Mg Tablet) 6 mg PO BEDTIME [facility] Last Admin: 01/18/22 22:23 Dose: 6 mg Documented By: PARIS Senna (Sennosides 8.6 Mg Tablet) 17.2 mg PO DAILY@0900 [facility] Last Admin: 01/19/22 08:43 Dose: 17.2 mg Documented By: RICK Sodium Chloride (0.9 % Sodium Chloride Flush 3 Ml Syringe) 3 ml IVFLUSH QSHIFT [facility] Last Admin: 01/19/22 08:44 Dose: 3 ml Documented By: RICK Tamsulosin HCl (Tamsulosin Hcl 0.4 Mg Capsule) 0.4 mg PO BEDTIME [facility] Last Admin: 01/18/22 22:22 Dose: 0.4 mg Documented By: PARIS Labs CBC & Chem 7: 01/18/22 06:11 01/18/22 06:11 Labs: Laboratory Results - last 24 hr 01/18/22 01/18/22 01/18/22 11:03 14:53 19:26 POC Glucose 202 H 227 H 210 H 01/19/22 07:28 POC Glucose 239 H Assessment and Plan (1) Diabetic foot infection: Status: Acute Plan 56-year-old male with pertinent history of diabetic foot ulcer with chronic osteomyelitis, history of HIV and hepatitis, BPH, insulin-dependent diabetes mellitus, gastroesophageal reflux disease, mood disorder who was sent to the emergency department for evaluation of elevated blood glucose. Uncontrolled diabetes mellitus with hyperglycemia:? basal bolus insulin - better controlled DFU with chronic OM and active drainage RLE ID appreciated, changed to zosyn follow up vascular - arterial duplex unremarkable likely TMA 01/19/22 Mood disorder Continue benztropine, lithium, propranolol, pregabalin, risperidone HIV continue Genvoya BPH Continue finasteride and Flomax Gastroesophageal reflux disease On PPI DVT prophylaxis:? Lovenox Full code reason for continued hospitalization:iv abx, plan for tma Time Spent With Patient Time: Total time managing care of this patient today ____ minutes. Quality Stroke Does the patient have a stroke diagnosis?: No VTE Prior VTE?: No VTE Risk Level:: Medical - moderate - high VTE Device Contraindication: Treatment Not Indicated VTE Drug Contraindication: Treatment Not Indicated
--- NOTE | 2022-01-19 10:12 | P.CDIC_ITS ---
CDI Concurrent Query Documentation Clarification: PHYSICIAN'S DOCUMENTATION REQUEST Date of Query: 01/19/22 1012 Patient Name: Leo Zhou Admit Date: 01/15/22 Dear Doctor, A review of the medical record indicates additional documentation may be indicated. Please review below and update the documentation accordingly. Clinical Indicators: Risk Factors/Clinical Indicators/Treatments Per MD progress note 01/19/22: DFU with chronic OM and active drainage RLE ID appreciated, changed to Zosyn follow up vascular - arterial duplex unremarkable likely TMA 01/19/22 Based on the above, could you please provide, in the Progress Notes, further information regarding the ulcer/wound: * Location of the ulcer/wound on RLE * For a non-pressure ulcer, please indicate the depth/severity: * Limited to the breakdown of skin * With fat layer exposed * With necrosis of muscle * With necrosis of bone * Other * Unable to determine *Source: National Pressure Ulcer Advisory Panel (NPUAP) Use of terms such as suspected, likely, concern for, or probable (associated with a specific diagnosis that is being evaluated, monitored, or treated as if it exists) are acceptable and can be coded in the inpatient setting, when documented at the time of discharge. Thank you, Otilia Olson RN Extension: [phone] Please use your independent medical judgment in providing your response. THIS QUERY IS PART OF THE PERMANENT MEDICAL RECORD Provider Response: Other (DFU/OM with open bone exposure) Other Diagnosis: see above
--- NOTE | 2022-01-19 10:15 | MHC.CM.PN ---
CLINICALS SENT TO [facility] RN CHETAN @ [phone] PER HER REQUEST CHETAN AWARE OF PLANS FOR TRANSMET AMP MONDAY
[2022-01-19 11:14] LABS: Glucose, Whole Blood 208 mg/dL (60-115)
--- NOTE | 2022-01-19 11:17 | HO.VASCPN ---
Subjective Subjective Date of Service: 01/19/22 Patient reports: no new complaints and feels better Interval history: Very pleasant 56-year-old gentleman presents for follow-up with his diabetic foot ulcer. It has been nonhealing for some time. He has had some time to think about possible amputation. In general in good spirits. Of note past history is significant for diabetes and HIV. Physical Exam Vital Signs: Vital Signs: Last Vital Signs Temp 97.7 F 01/19/22 07:47 Pulse 69 01/19/22 07:47 Resp 17 01/19/22 07:47 BP 114/71 01/19/22 07:47 Pulse Ox 99 01/19/22 07:47 O2 Del Method 01/19/22 07:47 BMI result Body Mass Index 22.7 Const: General: cooperative, healthy appearing and no acute distress Orientation/consciousness: oriented to person, oriented to place and oriented to time HEENT: Head: Yes normal to inspection Neck: Carotids: no bruits Chest: Chest palpation & inspection: normal inspection of the chest Resp: Effort & Inspection: normal respiratory effort and able to speak in complete sentences Auscultation: clear to auscultation bilaterally Cardio: Rate: regular rate Heart sounds: S1 normal heart sound present and S2 normal heart sound present GI: Inspection: Yes normal to inspection Skin: Other: Nonhealing ulcer between the 1st and 2nd web space of the right foot extending back to the metatarsal head. Exposed bone. Soft and boggy underlying tissue. No good granulation tissue noted. General skin exam: no rashes or lesions noted Wounds: wounds noted Neuro: General: oriented to person, oriented to place, oriented to time and CN's II-XI intact bilaterally Extrem: General: Yes normal to inspection, Yes full ROM and Yes no clubbing, cyanosis or edema Psych: Appearance: grossly normal and well kempt Speech and movement: Normal speech and movement present Affect: normal affect Progress Note: A&P Assessment and plan (1) Diabetic foot ulcer: Status: Acute Assessment and Plan: In short patient has nonhealing right foot diabetic ulcer. He has arterial studies which are within normal limits. He will require right foot transmetatarsal amputation. Risks benefits complications were discussed in detail. He agreed and consented. Time Spent With Patient Time: Total time managing care of this patient today ____ minutes. Procedures Date of Service Date of Service: 01/19/22 Quality Stroke Does the patient have a stroke diagnosis?: No VTE Prior VTE?: No VTE Risk Level:: Medical - moderate - high VTE Device Contraindication: Treatment Not Indicated VTE Drug Contraindication: Treatment Not Indicated
[2022-01-19 15:31] VITALS: BP 117/78; PULSE 71; RESP 15; TEMP 37; O2SAT 95
[2022-01-19 15:36] LABS: Glucose, Whole Blood 279 mg/dL (60-115)
[2022-01-19 19:12] VITALS: BP 119/66; PULSE 64; RESP 16; TEMP 36.8; O2SAT 99
[2022-01-19 19:18] LABS: Glucose, Whole Blood 200 mg/dL (60-115)
[2022-01-19] MEDS: Insulin Glargine,Hum.rec.anlog 100 UNIT/ML 10 ML VIAL 17 UNIT SUBCUT (21:18)
[2022-01-19] MEDS: Pravastatin Sodium 40 MG TABLET PO (21:18)
[2022-01-19] MEDS: Tamsulosin HCL 0.4 MG CAPSULE PO (21:19)
[2022-01-19] MEDS: risperiDONE 3 MG TABLET 6 MG PO (21:19)
[2022-01-20] VITALS (11 sets, daily range): BP systolic 105–152; BP diastolic 70–90; PULSE 65–95; RESP 14–20; TEMP 36.5–37.5; O2SAT 96–100
[2022-01-20] MEDS: Piperacillin Sodium/Tazobactam 3.375 GM in 0.9 % Sodium Chloride 50 ML IV ×5 (00:51→23:17)
[2022-01-20] MEDS: Omeprazole 20 MG CAPSULE.DR PO (06:03)
[2022-01-20 06:49] LABS: Hematocrit 36.2 % (42.0-52.0); Hemoglobin 12.1 g/dl (14.0-18.0); Mean Corpuscular HGB Conc 33.4 g/dl (31.0-36.0); Mean Corpuscular Hemoglobin 29.2 pg (27.0-33.0); Mean Corpuscular Volume 87.2 fL (80.0-98.0); Mean Platelet Volume 11.8 fL (9.4-12.4); Platelet Count 163 X10*3/uL (160-400); Red Blood Count 4.15 X10*6/uL (4.60-5.80); Red Cell Distribution Width 12.3 % (11.0-16.0); White Blood Count 11.3 X10*3/uL (4.8-10.8)
[2022-01-20 07:13] LABS: Anion Gap 12 (12-20); Blood Urea Nitrogen 16 mg/dL (9-16); Calcium 9.5 mg/dL (8.4-10.2); Carbon Dioxide 25 mmol/L (22-29); Chloride 105 mmol/L (96-108); Creatinine Clr Calc Pharmacy 59.3; Estimated Glomerular Filt Rate > 60; Glucose Fasting 220 mg/dL (60-99); Sodium 138 mmol/L (135-145)
[2022-01-20 07:35] LABS: Glucose, Whole Blood 232 mg/dL (60-115)
--- NOTE | 2022-01-20 09:35 | MHC.CM.PN ---
PER CONVERSATION WITH VASCULAR SURGEON, PLAN IS O.R. TODAY FOR TRANS-MET AMP AND DC TO REHAB ON Monday01/24/22 CM TO DISCUSS WITH [facility] RN, CHETAN. CHETAN TYPICALLY LIKES REFERRAL TO [facility] AND A REFERRAL IS PLACED.
[2022-01-20] MEDS: Lithium Carbonate 300 MG CAPSULE 900 MG PO (09:37)
[2022-01-20] MEDS: 0.9 % Sodium Chloride Flush 3 ML SYRINGE IVFLUSH ×2 (09:37→20:34)
[2022-01-20] MEDS: risperiDONE 2 MG TABLET PO (09:38)
[2022-01-20] MEDS: Pregabalin 100 MG CAPSULE PO ×2 (09:38→20:32)
[2022-01-20] MEDS: Sennosides 8.6 MG TABLET 17.2 MG PO (09:38)
[2022-01-20] MEDS: Benztropine Mesylate 1 MG TABLET 2 MG PO ×2 (09:38→20:32)
[2022-01-20] MEDS: Propranolol HCL 20 MG TABLET PO (09:38)
[2022-01-20] MEDS: Multivitamin TABLET 1 TAB PO (09:38)
[2022-01-20] MEDS: Finasteride 5 MG TABLET PO (09:39)
[2022-01-20] MEDS: Enoxaparin Sodium 40 MG/0.4 ML SYRINGE SUBCUT (09:40)
[2022-01-20 11:17] LABS: Glucose, Whole Blood 169 mg/dL (60-115)
--- NOTE | 2022-01-20 11:50 | P.PNIM_ITS ---
Subjective Subjective Date of Service: 01/20/22 Interval History: seen and examined this morning follow up for right foot wound, hyperglycemia plan for transmetatarsal amputation this afternoon Review of Systems Review of Systems: Yes all other systems are reviewed and are negative Constitutional Constitutional: Denies chills and Denies fever(s) Cardiovascular Cardiovascular: Denies chest pain and Denies dyspnea Respiratory Respiratory: Denies dyspnea Gastrointestinal Gastrointestinal: Denies abdominal pain Physical Exam Vital Signs: Vital Signs: Last Vital Signs Temp 97.7 F 01/20/22 07:52 Pulse 69 01/20/22 07:52 Resp 16 01/20/22 07:52 BP 152/90 H 01/20/22 07:52 Pulse Ox 99 01/20/22 07:52 O2 Del Method 01/20/22 07:52 BMI result Body Mass Index 22.7 Const: General: cooperative, comfortable, alert and awake Nutritional Appearance: average body habitus Resp: Effort & Inspection: normal respiratory effort and able to speak in complete sentences Cardio: Rate: regular rate Heart sounds: S1 normal heart sound present and S2 normal heart sound present GI: Inspection: No distended Palpation (GI): Soft to palpation Neuro: Other: grossly nonfocal Extrem: Other: right foot ulcer between / webspace to bone b/l upper extremity tremors General: Yes no pedal edema Objective Data Active Medications Acetaminophen (Acetaminophen 325 Mg Tablet) 650 mg PO Q6H PRN PRN Reason: Pain, Mild (Pain Scale 1-3) Benztropine Mesylate (Benztropine Mesylate 1 Mg Tablet) 2 mg PO BID [facility] Last Admin: 01/20/22 09:38 Dose: 2 mg Documented By: CHANDRIKA Dextrose (Dextrose 50 % 25 Gm/50 Ml Syringe) 25 gm IVPUSH Q15M PRN; Protocol PRN Reason: per Hypoglycemia Standing Ord. Enoxaparin Sodium (Enoxaparin Sodium 40 Mg/0.4 Ml Syringe) 40 mg SUBCUT Q24H [facility] Last Admin: 01/20/22 09:40 Dose: 40 mg Documented By: CHANDRIKA Finasteride (Finasteride 5 Mg Tablet) 5 mg PO DAILY [facility] Last Admin: 01/20/22 09:39 Dose: 5 mg Documented By: CHANDRIKA Glucose (Glucose Gel 15 Gm Gel..Gram.) 15 gm PO Q15M PRN; Protocol PRN Reason: per Hypoglycemia Standing Ord. Piperacillin Sod/Tazobactam (Sod 3.375 gm/ Sodium Chloride) 50 mls @ 100 mls/hr IV Q6H [facility] Last Infusion: 01/20/22 06:35 Dose: 0 mls/hr Documented By: KARINA Insulin Glargine (Insulin Glargine,Hum.Rec.Anlog 100 Unit/Ml 10 Ml Vial) 17 unit SUBCUT BEDTIME [facility] Last Admin: 01/19/22 21:18 Dose: 17 unit Documented By: KARINA Insulin Human Lispro (Insulin Lispro 100 Unit/Ml 3 Ml Vial) 0 unit SUBCUT QIDACHS [facility]; Protocol Last Admin: 01/20/22 11:19 Dose: Not Given Documented By: CHANDRIKA Non-Admin Reason: NPO Comments: npo for surgery [place] Carbonate ([place] Carbonate 300 Mg Capsule) 900 mg PO DAILY [facility] Last Admin: 01/20/22 09:37 Dose: 900 mg Documented By: CHANDRIKA Melatonin (Melatonin 3 Mg Tablet) 6 mg PO BEDTIME PRN PRN Reason: Insomnia Multivitamins/Vitamin C (Multivitamin Tablet) 1 tab PO DAILY [facility] Last Admin: 01/20/22 09:38 Dose: 1 tab Documented By: CHANDRIKA Omeprazole (Omeprazole 20 Mg Capsule.) 20 mg PO DAILY@0630 [facility] Last Admin: 01/20/22 06:03 Dose: 20 mg Documented By: KARINA Ondansetron HCl (Ondansetron Hcl 4 Mg/2 Ml Vial) 4 mg IVPUSH Q8H PRN PRN Reason: Nausea and Vomiting Pharmacy Consult (Consult Rx Perform Med Rec) 1 each MISCELLANE ONCE PRN PRN Reason: Consult order Polyethylene Glycol (Polyethylene Glycol 3350 17 Gm Powd.Pack) 17 gm PO DAILY [facility] Last Admin: 01/20/22 09:41 Dose: Not Given Documented By: CHANDRIKA Non-Admin Reason: Patient Refused Pravastatin Sodium (Pravastatin Sodium 40 Mg Tablet) 40 mg PO BEDTIME [facility] Last Admin: 01/19/22 21:18 Dose: 40 mg Documented By: AKRINA Pregabalin (Pregabalin 100 Mg Capsule) 100 mg PO BID [facility] Last Admin: 01/20/22 09:38 Dose: 100 mg Documented By: CHANDRIKA Propranolol HCl (Propranolol Hcl 20 Mg Tablet) 20 mg PO DAILY [facility]; Protocol Last Admin: 01/20/22 09:38 Dose: 20 mg Documented By: CHANDRIKA Risperidone (Risperidone 2 Mg Tablet) 2 mg PO DAILY@0900 [facility] Last Admin: 01/20/22 09:38 Dose: 2 mg Documented By: CHANDRIKA Risperidone (Risperidone 3 Mg Tablet) 6 mg PO BEDTIME [facility] Last Admin: 01/19/22 21:19 Dose: 6 mg Documented By: KARINA Senna (Sennosides 8.6 Mg Tablet) 17.2 mg PO DAILY@0900 [facility] Last Admin: 01/20/22 09:38 Dose: 17.2 mg Documented By: CHANDRIKA Sodium Chloride (0.9 % Sodium Chloride Flush 3 Ml Syringe) [facility] Last Admin: 01/20/22 09:37 Dose: 3 ml Documented By: CHANDRIKA Tamsulosin HCl (Tamsulosin Hcl 0.4 Mg Capsule) 0.4 mg PO BEDTIME [facility] Last Admin: 01/19/22 21:19 Dose: 0.4 mg Documented By: KARINA Labs CBC & Chem 7: 01/20/22 05:56 01/20/22 05:56 Labs: Laboratory Results - last 24 hr 01/19/22 01/19/22 01/20/22 15:30 19:10 05:56 MCV 87.2 MCH 29.2 MCHC 33.4 RDW 12.3 Plt Count 163 MPV 11.8 Absolute Nucleated RBC 0.000 Nucleated RBC % (auto) 0.0 Anion Gap Estim Creat Clear Calc Estimated GFR POC Glucose 279 H 200 H Fasting Glucose Calcium 01/20/22 01/20/22 01/20/22 05:56 07:31 11:14 MCV MCH MCHC RDW Plt Count MPV Absolute Nucleated RBC Nucleated RBC % (auto) Anion Gap 12 Estim Creat Clear Calc 59.3 Estimated GFR > 60 POC Glucose 232 H 169 H Fasting Glucose 220 H Calcium 9.5 Microbiology Microbiology Results: Microbiology 01/14/22 22:54 Blood Culture - Final Blood - Venous No growth after 5 days. 01/14/22 22:54 Blood Culture - Final Blood - Venous No growth after 5 days. Assessment and Plan (1) Diabetic foot ulcer: Status: Acute Plan 56-year-old male with pertinent history of diabetic foot ulcer with chronic osteomyelitis, history of HIV and hepatitis, BPH, insulin-dependent diabetes mellitus, gastroesophageal reflux disease, mood disorder who was sent to the emergency department for evaluation of elevated blood glucose. Uncontrolled diabetes mellitus with hyperglycemia? on 70/30 at baseline basal bolus insulin - better controlled DFU with chronic OM (necrosis of bone) and active drainage RLE ID appreciated, changed to zosyn. definitive management amputation, will not need rn long term care abx after surgery arterial duplex unremarkable vascular surgery following, plan for TMA today Blood cultures negative Mood disorder Continue benztropine, lithium, pregabalin, risperidone HIV Genvoya nonformulary, will attempt to have brought in from home BPH Continue finasteride and Flomax Gastroesophageal reflux disease On PPI Essential tremor continue propranolol DVT prophylaxis:? Lovenox Full code reason for continued hospitalization:iv abx, plan for tma dispo - will need PT eval following surgery - likely STR. From residential at baseline attending - dr. odell Time Spent With Patient Time: Total time managing care of this patient today ____ minutes. Quality Stroke Does the patient have a stroke diagnosis?: No VTE Prior VTE?: No VTE Risk Level:: Medical - moderate - high VTE Device Contraindication: Treatment Not Indicated VTE Drug Contraindication: Treatment Not Indicated
--- NOTE | 2022-01-20 12:34 | MHC.CM.PN ---
CORRECTION RNCHETAN AWARE THAT PATIENT'S HIV MEDICATION NEEDS TO BE BROUGHT IN SHE IS ALSO AWARE THAT [facility] CANNOT OFFER A BED AND SHE ASKS FOR REFERRALS CLOSE POSSIBLE TO THE [facility].
--- NOTE | 2022-01-20 15:32 | P.CONAN_ITS ---
HPI - Anesthesia Eval Consult details Narrative: 56-year-old male with diabetic nonhealing ulcer here for transmetatarsal amputation PMFSH Active Problems Active Problems: All Active Problems (Updated 01/18/22 @ 11:50 by Hollis Kramer MD) Diabetic foot ulcer (Acute) Diabetic foot infection (Acute) Hyperglycemia (Acute) Chronic osteomyelitis (Acute) Chest pain (Acute) Diabetes (Acute) Mood disorder (Acute) HIV (human immunodeficiency virus infection) (Acute) Chronic osteomyelitis (Acute) Bladder outlet obstruction (Acute) COVID-19 (Acute) Prostatitis (Acute) Urethritis (Acute) Infectious arthritis (Acute) Bacteremia due to group B Streptococcus (Acute) Acidosis, lactic (Acute) Weakness (Acute) LYNETTE (acute kidney injury) (Acute) Past Medical History Medical History BPH w urinary obs/LUTS Callus of foot Chronic prostatitis Diabetic foot ulcers Elevated C-reactive protein (CRP) Elevated erythrocyte sedimentation rate Enterococcal bacteremia Erectile dysfunction due to arterial insufficiency Eschar of foot Hepatitis HIV (human immunodeficiency virus infection) Open wnd foot-complicated Osteomyelitis of left foot Sepsis Urinary hesitancy Family History Family History Father No problems noted. Mother No problems noted. Family history of problems with anesthesia: No Surgical History Surgical History No pertinent past surgical history History of Problems with Anesthesia: No Social History Social History Household Members: Other Household Members Other:: senior care Housing: House Housing Other:: assisted Do you presently have visiting nurse or other home services: Yes Unable to assess alcohol history related to: Unknown Alcohol intake: never Patient Tobacco Use Status: Current everyday Tobacco user Tobacco use type: Cigarette Cigarette Packs Per Day: 1 Cigarettes Per Day: 20.0 Second Hand Smoke Exposure: Yes service: No Current occupational status: unemployed Meds Allergies Allergy/AdvReac Type Severity Reaction Status Date / Time acetaminophen [From TYLENOL] Allergy Unknown UNKNOWN Verified 01/13/22 14:13 aspirin [ASA] Allergy Unknown AGITATION Verified 01/13/22 14:13 trazodone [TRAZODONE] AdvReac Unknown HYPER Verified 01/13/22 14:13 Active Medications: Current Medications Acetaminophen (Acetaminophen 325 Mg Tablet) 650 mg PO Q6H PRN PRN Reason: Pain, Mild (Pain Scale 1-3) Benztropine Mesylate (Benztropine Mesylate 1 Mg Tablet) 2 mg PO BID [facility] Last Admin: 01/20/22 09:38 Dose: 2 mg Dextrose (Dextrose 50 % 25 Gm/50 Ml Syringe) 25 gm IVPUSH Q15M PRN; Protocol PRN Reason: per Hypoglycemia Standing Ord. Enoxaparin Sodium (Enoxaparin Sodium 40 Mg/0.4 Ml Syringe) 40 mg SUBCUT Q24H [facility] Last Admin: 01/20/22 09:40 Dose: 40 mg Finasteride (Finasteride 5 Mg Tablet) 5 mg PO DAILY [facility] Last Admin: 01/20/22 09:39 Dose: 5 mg Glucose (Glucose Gel 15 Gm Gel..Gram.) 15 gm PO Q15M PRN; Protocol PRN Reason: per Hypoglycemia Standing Ord. Piperacillin Sod/Tazobactam (Sod 3.375 gm/ Sodium Chloride) 50 mls @ 100 mls/hr IV Q6H [facility] Last Infusion: 01/20/22 12:39 Dose: Infused Insulin Glargine (Insulin Glargine,Hum.Rec.Anlog 100 Unit/Ml 10 Ml Vial) 17 unit SUBCUT BEDTIME [facility] Last Admin: 01/19/22 21:18 Dose: 17 unit Insulin Human Lispro (Insulin Lispro 100 Unit/Ml 3 Ml Vial) 0 unit SUBCUT QIDACHS [facility]; Protocol Last Admin: 01/20/22 11:19 Dose: Not Given Kenova Carbonate (Kenova Carbonate 300 Mg Capsule) 900 mg PO DAILY [facility] Last Admin: 01/20/22 09:37 Dose: 900 mg Melatonin (Melatonin 3 Mg Tablet) 6 mg PO BEDTIME PRN PRN Reason: Insomnia Multivitamins/Vitamin C (Multivitamin Tablet) 1 tab PO DAILY [facility] Last Admin: 01/20/22 09:38 Dose: 1 tab Pt Own (Elviteg-Cob- Emtri-Tenof Alafen [ Genvoya] 150-150-200 -10 Mg Table 1 tab PO DAILY@0800 [facility] Omeprazole (Omeprazole 20 Mg Capsule.Dr) 20 mg PO DAILY@0630 [facility] Last Admin: 01/20/22 06:03 Dose: 20 mg Ondansetron HCl (Ondansetron Hcl 4 Mg/2 Ml Vial) 4 mg IVPUSH Q8H PRN PRN Reason: Nausea and Vomiting Pharmacy Consult (Consult Rx Perform Med Rec) 1 each MISCELLANE ONCE PRN PRN Reason: Consult order Polyethylene Glycol (Polyethylene Glycol 3350 17 Gm Powd.Pack) 17 gm PO DAILY [facility] Last Admin: 01/20/22 09:41 Dose: Not Given Pravastatin Sodium (Pravastatin Sodium 40 Mg Tablet) 40 mg PO BEDTIME [facility] Last Admin: 01/19/22 21:18 Dose: 40 mg Pregabalin (Pregabalin 100 Mg Capsule) 100 mg PO BID [facility] Last Admin: 01/20/22 09:38 Dose: 100 mg Propranolol HCl (Propranolol Hcl 20 Mg Tablet) 20 mg PO DAILY [facility]; Protocol Last Admin: 01/20/22 09:38 Dose: 20 mg Risperidone (Risperidone 2 Mg Tablet) 2 mg PO DAILY@0900 [facility] Last Admin: 01/20/22 09:38 Dose: 2 mg Risperidone (Risperidone 3 Mg Tablet) 6 mg PO BEDTIME [facility] Last Admin: 01/19/22 21:19 Dose: 6 mg Senna (Sennosides 8.6 Mg Tablet) 17.2 mg PO DAILY@0900 [facility] Last Admin: 01/20/22 09:38 Dose: 17.2 mg Sodium Chloride (0.9 % Sodium Chloride Flush 3 Ml Syringe) 3 ml IVFLUSH QSHIFT [facility] Last Admin: 01/20/22 15:10 Dose: Not Given Tamsulosin HCl (Tamsulosin Hcl 0.4 Mg Capsule) 0.4 mg PO BEDTIME [facility] Last Admin: 01/19/22 21:19 Dose: 0.4 mg Home Medications Medication Instructions Recorded Confirmed Last Taken Type benztropine 2 mg tablet 2 mg PO BID 02/16/21 01/15/22 Unknown History elviteg 150 mg-cob 150 mg-emtricit 1 tab PO DAILY 02/16/21 01/15/22 Unknown History 200 mg-tenofo alafenam 10 mg tablet (Genvoya) lithium carbonate 300 mg tablet 900 mg PO DAILY 02/16/21 01/15/22 Unknown History pravastatin 40 mg tablet 40 mg PO BEDTIME 02/16/21 01/15/22 Unknown History propranolol 20 mg tablet 20 mg PO DAILY 02/16/21 01/15/22 Unknown History risperidone 3 mg tablet 6 mg PO BEDTIME 02/16/21 01/15/22 Unknown History insulin aspar prot-insulin aspart 15 unit subcut DAILY@0900 03/05/21 01/15/22 Unknown History 100 unit/mL (70-30) subcutaneous pen (Novolog Mix 70-30FlexPen U-100) omeprazole 20 mg capsule,delayed 20 mg PO DAILY@0630 03/05/21 01/15/22 Unknown History release eexefiqo-xws-mtitc acid 0.4 1 tab PO DAILY 07/27/21 01/15/22 Unknown History mg-lycopene 300 mcg-lutein 250 mcg tablet (Cerovite Senior) pregabalin 100 mg capsule 100 mg PO BID 07/27/21 01/15/22 Unknown History polyethylene glycol 3350 17 17 g PO DAILY 09/02/21 01/15/22 Unknown History gram/dose oral powder (Gavilax) ketoconazole 2 % shampoo 1 appl topical Q7D 10/12/21 01/15/22 Unknown History insulin aspar prot-insulin aspart 17 unit subcut DAILY@2100 01/01/22 01/15/22 Unknown History 100 unit/mL (70-30) subcutaneous pen (Novolog Mix 70-30FlexPen U-100) risperidone 2 mg tablet 2 mg PO DAILY@0900 01/01/22 01/15/22 Unknown History sennosides 8.6 mg tablet (senna) 17.2 mg PO DAILY@0900 01/01/22 01/15/22 Unknown History Exam Exam Date and Time: January 20, 2022 1532 Height,Weight and Vital Signs: Height 5 ft 6 in Weight 140 lb 14.006 oz Last Vital Signs Temp 99.1 F 01/20/22 15:08 Pulse 70 01/20/22 15:08 Resp 14 01/20/22 15:08 BP 138/72 01/20/22 15:08 Pulse Ox 96 01/20/22 15:08 O2 Del Method 01/20/22 15:08 Pertinent Lab Results Pertinent Lab Results: Laboratory Tests 01/14/22 01/14/22 01/14/22 20:19 20:19 20:54 WBC 15.8 H RBC 3.83 L Hgb 11.3 L Hct 33.3 L MCV 86.9 MCH 29.5 MCHC 33.9 RDW 11.9 Plt Count 258 D MPV 10.4 Immature Gran % (Auto) 1.3 H Neut % (Auto) 76.6 H Lymph % (Auto) 13.6 L [place] % (Auto) 6.5 Eos % (Auto) 1.7 Baso % (Auto) 0.3 Lymph # (Auto) 2.1 [place] # (Auto) 1.0 Eos # (Auto) 0.3 Baso # (Auto) 0.0 Abs Immat Gran (auto) 0.20 H Absolute Neuts (auto) 12.1 H Absolute Nucleated RBC 0.000 Nucleated RBC % (auto) 0.0 Sodium 135 Potassium 4.1 Chloride 103 Carbon Dioxide 27 Anion Gap 9 L BUN 14 Creatinine 1.20 Estim Creat Clear Calc 61.2 Estimated GFR > 60 POC Glucose 266 H Random Glucose 343 H D Fasting Glucose Lactic Acid Calcium 9.2 Urine Color Urine Appearance Urine pH Ur Specific [place] Urine Protein Urine Glucose (UA) Urine Ketones Urine Blood Urine Nitrite Ur Leukocyte Esterase Urine RBC Urine WBC Ur Squamous Epith Cells Urine Bacteria Hyaline Casts COVID-19 ([facility]) COVID-19 Clin Com 01/14/22 01/14/22 01/15/22 21:21 22:54 00:54 WBC RBC Hgb Hct MCV MCH MCHC RDW Plt Count MPV Immature Gran % (Auto) Neut % (Auto) Lymph % (Auto) [place] % (Auto) Eos % (Auto) Baso % (Auto) Lymph # (Auto) [place] # (Auto) Eos # (Auto) Baso # (Auto) Abs Immat Gran (auto) Absolute Neuts (auto) Absolute Nucleated RBC Nucleated RBC % (auto) Sodium Potassium Chloride Carbon Dioxide Anion Gap BUN Creatinine Estim Creat Clear Calc Estimated GFR POC Glucose Random Glucose Fasting Glucose Lactic Acid 1.2 Calcium Urine Color Yellow Urine Appearance Clear Urine pH 7.0 Ur Specific [place] 1.015 Urine Protein Negative Urine Glucose (UA) >=1000 H Urine Ketones Negative Urine Blood Negative Urine Nitrite Negative Ur Leukocyte Esterase Negative Urine RBC 0-2 Urine WBC 0-5 Ur Squamous Epith Cells 0-2 Urine Bacteria None Seen Hyaline Casts 0-2 COVID-19 ([facility]) Negative COVID-19 Clin Com See Note 01/15/22 01/15/22 01/15/22 06:21 06:21 07:37 WBC 14.3 H RBC 3.74 L Hgb 11.1 L Hct 32.7 L MCV 87.4 MCH 29.7 MCHC 33.9 RDW 11.9 Plt Count 235 MPV 10.2 Immature Gran % (Auto) 1.2 H Neut % (Auto) 78.8 H Lymph % (Auto) 12.3 L [place] % (Auto) 5.9 Eos % (Auto) 1.5 Baso % (Auto) 0.3 Lymph # (Auto) 1.8 [place] # (Auto) 0.9 Eos # (Auto) 0.2 Baso # (Auto) 0.0 Abs Immat Gran (auto) 0.17 H Absolute Neuts (auto) 11.3 H Absolute Nucleated RBC 0.000 Nucleated RBC % (auto) 0.0 Sodium 141 Potassium 3.9 Chloride 111 H Carbon Dioxide 24 Anion Gap 10 L BUN 11 Creatinine 0.99 Estim Creat Clear Calc 74.2 Estimated GFR > 60 POC Glucose 195 H Random Glucose 211 H Fasting Glucose Lactic Acid Calcium 8.7 Urine Color Urine Appearance Urine pH Ur Specific [place] Urine Protein Urine Glucose (UA) Urine Ketones Urine Blood Urine Nitrite Ur Leukocyte Esterase Urine RBC Urine WBC Ur Squamous Epith Cells Urine Bacteria Hyaline Casts COVID-19 ([facility]) COVID-19 [employer] 01/15/22 01/15/22 01/15/22 11:05 15:41 19:42 WBC RBC Hgb Hct MCV MCH MCHC RDW Plt Count MPV Immature Gran % (Auto) Neut % (Auto) Lymph % (Auto) [place] % (Auto) Eos % (Auto) Baso % (Auto) Lymph # (Auto) [place] # (Auto) Eos # (Auto) Baso # (Auto) Abs Immat Gran (auto) Absolute Neuts (auto) Absolute Nucleated RBC Nucleated RBC % (auto) Sodium Potassium Chloride Carbon Dioxide Anion Gap BUN Creatinine Estim Creat Clear Calc Estimated GFR POC Glucose 232 H 215 H 262 H Random Glucose Fasting Glucose Lactic Acid Calcium Urine Color Urine Appearance Urine pH Ur Specific [place] Urine Protein Urine Glucose (UA) Urine Ketones Urine Blood Urine Nitrite Ur Leukocyte Esterase Urine RBC Urine WBC Ur Squamous Epith Cells Urine Bacteria Hyaline Casts COVID-19 ([facility]) COVID-19 [employer] 01/16/22 01/16/22 01/16/22 06:05 06:05 07:44 WBC 13.0 H RBC 3.87 L Hgb 11.4 L Hct 33.9 L MCV 87.6 MCH 29.5 MCHC 33.6 RDW 12.1 Plt Count 224 MPV 10.7 Immature Gran % (Auto) Neut % (Auto) Lymph % (Auto) [place] % (Auto) Eos % (Auto) Baso % (Auto) Lymph # (Auto) [place] # (Auto) Eos # (Auto) Baso # (Auto) Abs Immat Gran (auto) Absolute Neuts (auto) Absolute Nucleated RBC 0.000 Nucleated RBC % (auto) 0.0 Sodium 140 Potassium 3.9 Chloride 107 Carbon Dioxide 26 Anion Gap 11 L BUN 13 Creatinine 1.19 Estim Creat Clear Calc 61.8 Estimated GFR > 60 POC Glucose 193 H Random Glucose Fasting Glucose 195 H Lactic Acid Calcium 9.1 Urine Color Urine Appearance Urine pH Ur Specific [place] Urine Protein Urine Glucose (UA) Urine Ketones Urine Blood Urine Nitrite Ur Leukocyte Esterase Urine RBC Urine WBC Ur Squamous Epith Cells Urine Bacteria Hyaline Casts COVID-19 ([facility]) COVID-19 [employer] 01/16/22 01/16/22 01/16/22 11:16 15:28 20:23 WBC RBC Hgb Hct MCV MCH MCHC RDW Plt Count MPV Immature Gran % (Auto) Neut % (Auto) Lymph % (Auto) [place] % (Auto) Eos % (Auto) Baso % (Auto) Lymph # (Auto) [place] # (Auto) Eos # (Auto) Baso # (Auto) Abs Immat Gran (auto) Absolute Neuts (auto) Absolute Nucleated RBC Nucleated RBC % (auto) Sodium Potassium Chloride Carbon Dioxide Anion Gap BUN Creatinine Estim Creat Clear Calc Estimated GFR POC Glucose 227 H 155 H 211 H Random Glucose Fasting Glucose Lactic Acid Calcium Urine Color Urine Appearance Urine pH Ur Specific [place] Urine Protein Urine Glucose (UA) Urine Ketones Urine Blood Urine Nitrite Ur Leukocyte Esterase Urine RBC Urine WBC Ur Squamous Epith Cells Urine Bacteria Hyaline Casts COVID-19 ([facility]) COVID-19 [employer] 01/17/22 01/17/22 01/17/22 06:59 11:05 16:20 WBC RBC Hgb Hct MCV MCH MCHC RDW Plt Count MPV Immature Gran % (Auto) Neut % (Auto) Lymph % (Auto) [place] % (Auto) Eos % (Auto) Baso % (Auto) Lymph # (Auto) [place] # (Auto) Eos # (Auto) Baso # (Auto) Abs Immat Gran (auto) Absolute Neuts (auto) Absolute Nucleated RBC Nucleated RBC % (auto) Sodium Potassium Chloride Carbon Dioxide Anion Gap BUN Creatinine Estim Creat Clear Calc Estimated GFR POC Glucose 139 H 232 H 144 H Random Glucose Fasting Glucose Lactic Acid Calcium Urine Color Urine Appearance Urine pH Ur Specific [place] Urine Protein Urine Glucose (UA) Urine Ketones Urine Blood Urine Nitrite Ur Leukocyte Esterase Urine RBC Urine WBC Ur Squamous Epith Cells Urine Bacteria Hyaline Casts COVID-19 ([facility]) COVID-19 Clin Com 01/17/22 01/18/22 01/18/22 19:39 06:11 06:11 WBC 9.4 RBC 4.14 L Hgb 12.2 L Hct 36.3 L MCV 87.7 MCH 29.5 MCHC 33.6 RDW 12.2 Plt Count 194 MPV 10.9 Immature Gran % (Auto) Neut % (Auto) Lymph % (Auto) [place] % (Auto) Eos % (Auto) Baso % (Auto) Lymph # (Auto) [place] # (Auto) Eos # (Auto) Baso # (Auto) Abs Immat Gran (auto) Absolute Neuts (auto) Absolute Nucleated RBC 0.000 Nucleated RBC % (auto) 0.0 Sodium 139 Potassium 4.2 Chloride 107 Carbon Dioxide 24 Anion Gap 12 BUN 16 Creatinine 1.15 Estim Creat Clear Calc 63.9 Estimated GFR > 60 POC Glucose 228 H Random Glucose Fasting Glucose 173 H Lactic Acid Calcium 9.4 Urine Color Urine Appearance Urine pH Ur Specific [place] Urine Protein Urine Glucose (UA) Urine Ketones Urine Blood Urine Nitrite Ur Leukocyte Esterase Urine RBC Urine WBC Ur Squamous Epith Cells Urine Bacteria Hyaline Casts COVID-19 ([facility]) COVID-19 Clin Com 01/18/22 01/18/22 01/18/22 07:01 11:03 14:53 WBC RBC Hgb Hct MCV MCH MCHC RDW Plt Count MPV Immature Gran % (Auto) Neut % (Auto) Lymph % (Auto) [place] % (Auto) Eos % (Auto) Baso % (Auto) Lymph # (Auto) [place] # (Auto) Eos # (Auto) Baso # (Auto) Abs Immat Gran (auto) Absolute Neuts (auto) Absolute Nucleated RBC Nucleated RBC % (auto) Sodium Potassium Chloride Carbon Dioxide Anion Gap BUN Creatinine Estim Creat Clear Calc Estimated GFR POC Glucose 162 H 202 H 227 H Random Glucose Fasting Glucose Lactic Acid Calcium Urine Color Urine Appearance Urine pH Ur Specific [place] Urine Protein Urine Glucose (UA) Urine Ketones Urine Blood Urine Nitrite Ur Leukocyte Esterase Urine RBC Urine WBC Ur Squamous Epith Cells Urine Bacteria Hyaline Casts COVID-19 ([facility]) COVID-19 [employer] 01/18/22 01/19/22 01/19/22 19:26 07:28 11:08 WBC RBC Hgb Hct MCV MCH MCHC RDW Plt Count MPV Immature Gran % (Auto) Neut % (Auto) Lymph % (Auto) [place] % (Auto) Eos % (Auto) Baso % (Auto) Lymph # (Auto) [place] # (Auto) Eos # (Auto) Baso # (Auto) Abs Immat Gran (auto) Absolute Neuts (auto) Absolute Nucleated RBC Nucleated RBC % (auto) Sodium Potassium Chloride Carbon Dioxide Anion Gap BUN Creatinine Estim Creat Clear Calc Estimated GFR POC Glucose 210 H 239 H 208 H Random Glucose Fasting Glucose Lactic Acid Calcium Urine Color Urine Appearance Urine pH Ur Specific [place] Urine Protein Urine Glucose (UA) Urine Ketones Urine Blood Urine Nitrite Ur Leukocyte Esterase Urine RBC Urine WBC Ur Squamous Epith Cells Urine Bacteria Hyaline Casts COVID-19 ([facility]) COVID-19 [employer] 01/19/22 01/19/22 01/20/22 15:30 19:10 05:56 WBC 11.3 H RBC 4.15 L Hgb 12.1 L Hct 36.2 L MCV 87.2 MCH 29.2 MCHC 33.4 RDW 12.3 Plt Count 163 MPV 11.8 Immature Gran % (Auto) Neut % (Auto) Lymph % (Auto) [place] % (Auto) Eos % (Auto) Baso % (Auto) Lymph # (Auto) [place] # (Auto) Eos # (Auto) Baso # (Auto) Abs Immat Gran (auto) Absolute Neuts (auto) Absolute Nucleated RBC 0.000 Nucleated RBC % (auto) 0.0 Sodium Potassium Chloride Carbon Dioxide Anion Gap BUN Creatinine Estim Creat Clear Calc Estimated GFR POC Glucose 279 H 200 H Random Glucose Fasting Glucose Lactic Acid Calcium Urine Color Urine Appearance Urine pH Ur Specific [place] Urine Protein Urine Glucose (UA) Urine Ketones Urine Blood Urine Nitrite Ur Leukocyte Esterase Urine RBC Urine WBC Ur Squamous Epith Cells Urine Bacteria Hyaline Casts COVID-19 ([facility]) COVID-19 Clin Com 01/20/22 01/20/22 01/20/22 05:56 07:31 11:14 WBC RBC Hgb Hct MCV MCH MCHC RDW Plt Count MPV Immature Gran % (Auto) Neut % (Auto) Lymph % (Auto) [place] % (Auto) Eos % (Auto) Baso % (Auto) Lymph # (Auto) [place] # (Auto) Eos # (Auto) Baso # (Auto) Abs Immat Gran (auto) Absolute Neuts (auto) Absolute Nucleated RBC Nucleated RBC % (auto) Sodium 138 Potassium 4.0 Chloride 105 Carbon Dioxide 25 Anion Gap 12 BUN 16 Creatinine 1.24 Estim Creat Clear Calc 59.3 Estimated GFR > 60 POC Glucose 232 H 169 H Random Glucose Fasting Glucose 220 H Lactic Acid Calcium 9.5 Urine Color Urine Appearance Urine pH Ur Specific [place] Urine Protein Urine Glucose (UA) Urine Ketones Urine Blood Urine Nitrite Ur Leukocyte Esterase Urine RBC Urine WBC Ur Squamous Epith Cells Urine Bacteria Hyaline Casts COVID-19 ([facility]) COVID-19 Clin Com Airway Mallampati Class: II TM Dist: >3cm Neck ROM: Full Denture: Upper and Lower Assessment and Plan Assessment Anesthesia Assessment: Anesthesia Plan Discussed and Chart Reviewed Final Anesthetic Review Family History of Problems with Anesthesia: No History of Problems with Anesthesia: No NPO: Yes ASA Class: III Final Preanesthetic Review: No Changes in Pt Med Stat, Meds/Allgs Chart Reviewed, Consent Obtained/Reviewed and Anes Risks/Benef Reviewed Patient Risk: Intermediate Procedure Risk: Low Anesthetic Plan Anesthetic Plan: GA Disposition: Standard PACU
--- NOTE | 2022-01-20 16:52 | P.OP_ITS ---
Operative Note Operative Note Date of Service: 01/20/22 Narrative: Operative note by [facility] Preoperative diagnosis: Right foot diabetic ulcer Postoperative diagnosis: Same Procedure: Right transmetatarsal amputation Surgeon:Hollis Kramer M.D. Inseam Leveler: None Anesthesia: General Specimens: 1 Drains: None Estimated blood loss: Minimal Indications: 56 year old diabetic gentleman with nonhealing ulcer. He has had multiple trials of conservative management with antibiotics. Remains nonhealing. He now presents for transmetatarsal amputation. The patient has signed the informed consent after reviewing risks, complications, benefits, and alternatives previously discussed with the patient. The patient was given the opportunity to ask any additional questions or voice any concerns. All questions were answered to the patient's satisfaction. Doping Supervisor was present during signing of consent Procedure in detail: Patient was brought to the operating room prior to which a time-out was called for patient identification and site verification. After right foot was prepped and draped in standard surgical fashion a curvilinear incision was carried out over the dorsum of the foot. Electrocautery was used to get through the skin fascia and tissue. We had to tie off the dorsalis pedis artery with 2 0 silk ties. Once this was accomplished a posterior flap had to be created. We had to avoid in the callus over the 1st metatarsal head and re sect all the infected portion between the 1st web space in the 2nd webspace. Once this was all accomplished we used a power saw to transect across the metatarsal posterior flap was then created. We obtain adequate hemostasis wound was irrigated out fascial layer was reapproximated using 2-0 Polysorb in multiple layers. Skin was reapproximated using 2 0 mono soft in a mattress fashion and finally skin clips were used. Xeroform and a sterile dressing were applied. At the end the case sponge instrument counts were correct. Patient tolerated the procedure well returned to recovery with stable vitals. This note is constructed using voice recognition software. While every effort has been made to ensure accuracy, hot metal crane operator errors may have been included. Thank you for allowing me to participate in the care of your patient. Yours sincerely, Hollis Kramer MD, FACS, R.P.V.I.
--- NOTE | 2022-01-20 16:52 | MHC.SHP ---
Pre-Procedural Eval Section A Date of Service: 01/20/22 The patient is an INPATIENT: No Changes since office visit: Yes Patient answered all questions The History & Physical has been completed within 30 days and I have reviewed it.: Yes Section B Chief Complaint: hyperglycemia Allergies: Allergies Allergy/AdvReac Type Severity Reaction Status Date / Time acetaminophen [From TYLENOL] Allergy Unknown UNKNOWN Verified 01/13/22 14:13 aspirin [ASA] Allergy Unknown AGITATION Verified 01/13/22 14:13 trazodone [TRAZODONE] AdvReac Unknown HYPER Verified 01/13/22 14:13 Plan I have reviewed the history and physical and performed a pertinent physical examination on my patient. No changes have occurred unless specified. Time Spent With Patient Time: Total time managing care of this patient today ____ minutes.
[2022-01-20 17:34] LABS: Glucose, Whole Blood 152 mg/dL (60-115)
[2022-01-20] MEDS: Morphine Sulfate 2 MG/ML CARTRIDGE IVPUSH ×2 (18:47→23:17)
[2022-01-20 19:37] LABS: Glucose, Whole Blood 260 mg/dL (60-115)
[2022-01-20] MEDS: Insulin Lispro 100 UNIT/ML 3 ML VIAL SUBCUT (20:31)
[2022-01-20] MEDS: Insulin Glargine,Hum.rec.anlog 100 UNIT/ML 10 ML VIAL 17 UNIT SUBCUT (20:31)
[2022-01-20] MEDS: Tamsulosin HCL 0.4 MG CAPSULE PO (20:32)
[2022-01-20] MEDS: risperiDONE 3 MG TABLET 6 MG PO (20:32)
[2022-01-20] MEDS: Pravastatin Sodium 40 MG TABLET PO (20:32)
[2022-01-20] MEDS: oxyCODONE HCl Immed Release 5 MG TABLET PO (20:38)
[2022-01-20] MEDS: Melatonin 3 MG TABLET 6 MG PO (20:38)
[2022-01-21 03:22] VITALS: BP 113/64; PULSE 108; RESP 18; TEMP 36.6; O2SAT 98
[2022-01-21] MEDS: Omeprazole 20 MG CAPSULE.DR PO (05:12)
[2022-01-21] MEDS: Piperacillin Sodium/Tazobactam 3.375 GM in 0.9 % Sodium Chloride 50 ML IV ×4 (05:12→23:58)
[2022-01-21] MEDS: Morphine Sulfate 2 MG/ML CARTRIDGE IVPUSH ×2 (05:12→20:08)
[2022-01-21 07:18] LABS: Anion Gap 14 (12-20); Blood Urea Nitrogen 14 mg/dL (9-16); Calcium 9.4 mg/dL (8.4-10.2); Carbon Dioxide 25 mmol/L (22-29); Chloride 104 mmol/L (96-108); Creatinine Clr Calc Pharmacy 62.8; Estimated Glomerular Filt Rate > 60; Glucose Random 173 mg/dL (60-115); Potassium 4.4 mmol/L (3.3-5.1); Sodium 139 mmol/L (135-145)
[2022-01-21 07:35] VITALS: BP 107/70; PULSE 104; RESP 18; TEMP 37; O2SAT 99
[2022-01-21 07:40] LABS: Glucose, Whole Blood 166 mg/dL (60-115)
[2022-01-21 07:40] LABS: Glucose, Whole Blood 175 mg/dL (60-115)
[2022-01-21] MEDS: oxyCODONE HCl Immed Release 5 MG TABLET PO (08:15)
[2022-01-21] MEDS: Finasteride 5 MG TABLET PO (08:15)
[2022-01-21] MEDS: Lithium Carbonate 300 MG CAPSULE 900 MG PO (08:15)
[2022-01-21] MEDS: Pregabalin 100 MG CAPSULE PO ×2 (08:15→20:08)
[2022-01-21] MEDS: Enoxaparin Sodium 40 MG/0.4 ML SYRINGE SUBCUT (08:16)
[2022-01-21] MEDS: Sennosides 8.6 MG TABLET 17.2 MG PO (08:16)
[2022-01-21] MEDS: risperiDONE 2 MG TABLET PO (08:16)
[2022-01-21] MEDS: Propranolol HCL 20 MG TABLET PO (08:16)
[2022-01-21] MEDS: Benztropine Mesylate 1 MG TABLET 2 MG PO ×2 (08:16→20:08)
[2022-01-21] MEDS: Multivitamin TABLET 1 TAB PO (08:17)
[2022-01-21] MEDS: 0.9 % Sodium Chloride Flush 3 ML SYRINGE IVFLUSH ×2 (08:17→23:58)
[2022-01-21] MEDS: Insulin Lispro 100 UNIT/ML 3 ML VIAL SUBCUT ×2 (08:17→20:09)
--- NOTE | 2022-01-21 09:38 | MHC.CM.PN ---
OPERATIVE NOTE FAXED TO [facility] RN CHETAN AT [phone] PER HER REQUEST CHETAN IS AWARE THAT CURRENTLY NO BED OFFERS HAVE BEEN MADE BUT THAT CASE MANAGEMENT IS STILL TRYING
--- NOTE | 2022-01-21 10:34 | P.PNVS_ITS ---
Subjective Subjective Date of Service: 01/21/22 Patient reports: no new complaints and feels better Interval history: Complex 56-year-old gentleman postop day 1 status post transmetatarsal amputation. No significant events overnight. Reports to be doing relatively well. He now presents for follow-up. Physical Exam Vital Signs: Vital Signs: Last Vital Signs Temp 98.6 F 01/21/22 07:35 Pulse 104 H 01/21/22 07:35 Resp 18 01/21/22 07:35 BP 107/70 01/21/22 07:35 Pulse Ox 99 01/21/22 07:35 O2 Del Method 01/21/22 07:35 O2 Flow Rate 4 01/20/22 17:00 BMI result Body Mass Index 22.7 Const: General: cooperative, healthy appearing and comfortable Orien tation/consciousness: oriented to person, oriented to place and oriented to time HEENT: Head: Yes normal to inspection Neck: Neck: Yes normal visual inspection Carotids: no bruits Chest: Chest palpation & inspection: normal inspection of the chest Resp: Effort & Inspection: normal respiratory effort and able to speak in complete sentences Auscultation: clear to auscultation bilaterally, no crackles, no rales, no rhonchi and no wheezes Cardio: Rate: regular rate Rhythm: regular rhythm Heart sounds: S1 normal heart sound present and S2 normal heart sound present Bruits: no carot id bruits Peripheral pulses: Peripheral pulses 2+ throughout GI: Inspection: Yes normal to inspection Skin: Other: Trans met amputation site dressing change due to saturation. Appears to be healing well. Wounds: amputation site Hair: normal Neuro: General: oriented to person, oriented to place and oriented to time Cranial nerves: Yes CN's II-XII intact bilaterally and Yes Normal hearing present Cognition (Neuro): normal cognition Motor exam (neuro): 5/5 motor strength present throughout Extrem: Other: venous exam: No significant superficial varicosities or spider telangiectasias , minimal edema General: No clubbing, No cyanosis and No edema Psych: Appearance: grossly normal Mental Status: mental status grossly normal Speech and movement: Normal speech and movement present Progress Note: A&P Assessment and plan (1) Status post transmetatarsal amputation of foot: Status: Acute Assessment and Plan: In short patient is doing well status post transmetatarsal amputation. Continue local wound care. I do believe he will be stable for discharge within the next few days. Upon discharge may be better served by a rehab facility. He can follow up with us in approximately 2 weeks for suture and staple removal. Wound care instructions were written. Thank you for allowing us to assist in his care. If there are any questions or concerns please do not hesitate to contact us. Time Spent With Patient Time: Total time managing care of this patient today ____ minutes. Procedures Date of Service Date of Service: 01/21/22 Quality Stroke Does the patient have a stroke diagnosis?: No VTE Prior VTE?: No VTE Risk Level:: Medical - moderate - high VTE Device Contraindication: Treatment Not Indicated VTE Drug Contraindication: Treatment Not Indicated
--- NOTE | 2022-01-21 10:36 | HO.POSTANES ---
Post Anesthesia Evaluation Post Anesthesia Evaluation Vital Signs: Vital Signs Temp Pulse Resp BP Pulse Ox O2 Del Method 01/21/22 07:35 98.6 F 104 H 18 107/70 99 Room Air 01/21/22 03:22 97.8 F 108 H 18 113/64 98 Room Air 01/20/22 23:08 98.4 F 71 16 121/74 98 Room Air Anesthesia: General Mental Status: Awake Pain Control: Satisfactory (difficult to control) Nausea/Vomiting: None Hydration: Adequate Anesthesia-Related Issues: No Anes. Related Issues
[2022-01-21 11:20] VITALS: BP 120/70; RESP 80; TEMP 37.4; O2SAT 98
--- NOTE | 2022-01-21 11:46 | P.PNIM_ITS ---
Subjective Subjective Date of Service: 01/21/22 Interval History: seen and examined this morning follow up for right foot ulcer - s/p Transmetatarsal amputation yesterday afternoon patient reporting some pain at the site of amputation. denies fever, chills Review of Systems Review of Systems: Yes all other systems are reviewed and are negative Constitutional Constitutional: Denies chills and Denies fever(s) Cardiovascular Cardiovascular: Denies chest pain, Denies palpitations and Denies dyspnea Respiratory Respiratory: Denies cough and Denies dyspnea Endocrine Endocrine: Denies palpitations Physical Exam Vital Signs: Vital Signs: Last Vital Signs Temp 99.4 F 01/21/22 11:20 Pulse 104 H 01/21/22 07:35 Resp 80 H 01/21/22 11:20 BP 120/70 01/21/22 11:20 Pulse Ox 98 01/21/22 11:20 O2 Del Method 01/21/22 11:20 O2 Flow Rate 4 01/20/22 17:00 BMI result Body Mass Index 22.7 Const: General: cooperative, comfortable, alert and awake Nutritional Appearance: average body habitus Resp: Effort & Inspection: normal respiratory effort and able to speak in complete sentences Cardio: Rate: regular rate Heart sounds: S1 normal heart sound present and S2 normal heart sound present GI: Inspection: No distended Palpation (GI): Soft to palpation Neuro: Other: grossly nonfocal Extrem: Other: b/l upper extremity tremors right foot wrapped in c/d/i stacia wrap General: Yes no pedal edema Objective Data Active Medications Acetaminophen (Acetaminophen 325 Mg Tablet) 650 mg PO Q6H PRN PRN Reason: Pain, Mild (Pain Scale 1-3) Benztropine Mesylate (Benztropine Mesylate 1 Mg Tablet) 2 mg PO BID [facility] Last Admin: 01/21/22 08:16 Dose: 2 mg Documented By: CHANDRIKA Dextrose (Dextrose 50 % 25 Gm/50 Ml Syringe) 25 gm IVPUSH Q15M PRN; Protocol PRN Reason: per Hypoglycemia Standing Ord. Enoxaparin Sodium (Enoxaparin Sodium 40 Mg/0.4 Ml Syringe) 40 mg SUBCUT Q24H [facility] Last Admin: 01/21/22 08:16 Dose: 40 mg Documented By: CHANDRIKA Finasteride (Finasteride 5 Mg Tablet) 5 mg PO DAILY [facility] Last Admin: 01/21/22 08:15 Dose: 5 mg Documented By: CHANDRIKA Glucose (Glucose Gel 15 Gm Gel..Gram.) 15 gm PO Q15M PRN; Protocol PRN Reason: per Hypoglycemia Standing Ord. Piperacillin Sod/Tazobactam (Sod 3.375 gm/ Sodium Chloride) 50 mls @ 100 mls/hr IV Q6H [facility] Last Infusion: 01/21/22 05:52 Dose: 0 mls/hr Documented By: KARINA Promethazine HCl 12.5 mg/ (Sodium Chloride) 50.5 mls @ 202 mls/hr IV ONCE PRN PRN Reason: Nausea and Vomiting Insulin Glargine (Insulin Glargine,Hum.Rec.Anlog 100 Unit/Ml 10 Ml Vial) 17 unit SUBCUT BEDTIME [facility] Last Admin: 01/20/22 20:31 Dose: 17 unit Documented By: KARINA Insulin Human Lispro (Insulin Lispro 100 Unit/Ml 3 Ml Vial) 0 unit SUBCUT QIDACHS [facility]; Protocol Last Admin: 01/21/22 08:17 Dose: 2 unit Documented By: CHANDRIKA Lewis Carbonate (Lewis Carbonate 300 Mg Capsule) 900 mg PO DAILY [facility] Last Admin: 01/21/22 08:15 Dose: 900 mg Documented By: CHANDRIKA Melatonin (Melatonin 3 Mg Tablet) 6 mg PO BEDTIME PRN PRN Reason: Insomnia Last Admin: 01/20/22 20:38 Dose: 6 mg Documented By: KARINA Morphine Sulfate (Morphine Sulfate 2 Mg/Ml Cartridge) 2 mg IVPUSH Q3H PRN; Protocol PRN Reason: Pain, Severe (Pain Scale 7-10) Last Admin: 01/21/22 05:12 Dose: 2 mg Documented By: KARINA Multivitamins/Vitamin C (Multivitamin Tablet) 1 tab PO DAILY [facility] Last Admin: 01/21/22 08:17 Dose: 1 tab Documented By: CHANDRIKA Pt Own (Elviteg-Cob- Emtri-Tenof Alafen [ Genvoya] 150-150-200 -10 Mg Table 1 tab PO DAILY@0800 [facility] Last Admin: 01/21/22 08:14 Dose: 1 tab Documented By: CHANDRIKA Omeprazole (Omeprazole 20 Mg Octavio.) 20 mg PO DAILY@0630 [facility] Last Admin: 01/21/22 05:12 Dose: 20 mg Documented By: KARINA Ondansetron HCl (Ondansetron Hcl 4 Mg/2 Ml Vial) 4 mg IVPUSH Q8H PRN PRN Reason: Nausea and Vomiting Ondansetron HCl (Ondansetron Hcl 4 Mg/2 Ml Vial) 4 mg IVPUSH ONCE PRN PRN Reason: Nausea and Vomiting Oxycodone HCl (Oxycodone Hcl Immed Release 5 Mg Tablet) 5 mg PO Q6H PRN PRN Reason: Pain, Moderate (Pain Scale 4-6 Last Admin: 01/21/22 08:15 Dose: 5 mg Documented By: CHANDRIKA Pharmacy Consult (Consult Rx Perform Med Rec) 1 each MISCELLANE ONCE PRN PRN Reason: Consult order Polyethylene Glycol (Polyethylene Glycol 3350 17 Gm Powd.Pack) 17 gm PO DAILY [facility] Last Admin: 01/21/22 08:17 Dose: Not Given Documented By: CHANDRIKA Non-Admin Reason: Patient Refused Pravastatin Sodium (Pravastatin Sodium 40 Mg Tablet) 40 mg PO BEDTIME [facility] Last Admin: 01/20/22 20:32 Dose: 40 mg Documented By: KARINA Pregabalin (Pregabalin 100 Mg Capsule) 100 mg PO BID [facility] Last Admin: 01/21/22 08:15 Dose: 100 mg Documented By: CHANDRIKA Propranolol HCl (Propranolol Hcl 20 Mg Tablet) 20 mg PO DAILY [facility]; Protocol Last Admin: 01/21/22 08:16 Dose: 20 mg Documented By: CHANDRIKA Risperidone (Risperidone 2 Mg Tablet) 2 mg PO DAILY@0900 [facility] Last Admin: 01/21/22 08:16 Dose: 2 mg Documented By: CHANDRIKA Risperidone (Risperidone 3 Mg Tablet) 6 mg PO BEDTIME [facility] Last Admin: 01/20/22 20:32 Dose: 6 mg Documented By: KARINA Senna (Sennosides 8.6 Mg Tablet) 17.2 mg PO DAILY@0900 [facility] Last Admin: 01/21/22 08:16 Dose: 17.2 mg Documented By: CHANDRIKA Sodium Chloride (0.9 % Sodium Chloride Flush 3 Ml Syringe) 3 ml IVFLUSH QSHIFT [facility] Last Admin: 01/21/22 08:17 Dose: 3 ml Documented By: CHANDRIKA Tamsulosin HCl (Tamsulosin Hcl 0.4 Mg Capsule) 0.4 mg PO BEDTIME [facility] Last Admin: 01/20/22 20:32 Dose: 0.4 mg Documented By: KARINA Labs CBC & Chem 7: 01/20/22 05:56 01/21/22 06:02 Labs: Laboratory Results - last 24 hr 01/20/22 01/20/22 01/21/22 17:29 19:22 06:02 Anion Gap 14 Estim Creat Clear Calc 62.8 Estimated GFR > 60 POC Glucose 152 H 260 H Random Glucose 173 H Calcium 9.4 01/21/22 01/21/22 07:30 07:33 Anion Gap Estim Creat Clear Calc Estimated GFR POC Glucose 175 H 166 H Random Glucose Calcium Assessment and Plan (1) Diabetic foot ulcer: Status: Acute (2) Status post transmetatarsal amputation of foot: Status: Acute Plan 56-year-old male with pertinent history of diabetic foot ulcer with chronic osteomyelitis, history of HIV and hepatitis, BPH, insulin-dependent diabetes mellitus, gastroesophageal reflux disease, mood disorder who was sent to the emergency department for evaluation of elevated blood glucose. DFU with chronic OM (necrosis of bone) and active drainage RLE ID appreciated, changed to [email or web address]. definitive management amputation, will not need assisted abx after surgery arterial duplex unremarkable POD 1 s/p right TMA - follow up outpatient in 2 weeks for suture/staple removal wound care per vascular surgery Blood cultures negative Uncontrolled diabetes mellitus with hyperglycemia? on 70/30 at baseline basal bolus insulin - better controlled Mood disorder Continue benztropine, lithium, pregabalin, risperidone HIV Genvoya nonformulary, brought from home BPH Continue finasteride and Flomax Gastroesophageal reflux disease On PPI Essential tremor continue propranolol DVT prophylaxis:? Lovenox Full code reason for continued hospitalization:iv abx, s/p TMA dispo - will need PT eval following surgery - likely STR. From half-way at baseline. PT eval pending attending - dr. odell Time Spent With Patient Time: Total time managing care of this patient today ____ minutes. Quality Stroke Does the patient have a stroke diagnosis?: No VTE Prior VTE?: No VTE Risk Level:: Medical - moderate - high VTE Device Contraindication: Treatment Not Indicated VTE Drug Contraindication: Treatment Not Indicated
[2022-01-21 13:17] LABS: Glucose, Whole Blood 203 mg/dL (60-115)
--- NOTE | 2022-01-21 13:36 | MHC.CM.PN ---
NO HCP OR GUARDIANSHIP ON FILE OR IN CHART SKILLED NURSING STAFF MEMBER ([phone]) STATES THAT THERE IS NONE AND PATIENT IS HIS OWN PERSON. PATIENT ALSO TELLS SKILLED NURSING THAT HE DOES NOT WANT TO DC TO ANY REHAB FACILITY. OF THIS NOTE,[facility] IS ONLY REFERRAL PLACED THAT IS FOLLOWING FOR A BED OFFER.
[2022-01-21 14:41] VITALS: BP 120/70; O2SAT 98
[2022-01-21 15:12] VITALS: BP 127/76; PULSE 84; RESP 17; TEMP 36.9; O2SAT 96
[2022-01-21 15:22] LABS: Glucose, Whole Blood 194 mg/dL (60-115)
[2022-01-21 19:25] VITALS: BP 120/67; PULSE 93; RESP 17; TEMP 37; O2SAT 96
[2022-01-21 19:31] LABS: Glucose, Whole Blood 196 mg/dL (60-115)
[2022-01-21] MEDS: Tamsulosin HCL 0.4 MG CAPSULE PO (20:07)
[2022-01-21] MEDS: risperiDONE 3 MG TABLET 6 MG PO (20:08)
[2022-01-21] MEDS: Pravastatin Sodium 40 MG TABLET PO (20:08)
[2022-01-21] MEDS: Insulin Glargine,Hum.rec.anlog 100 UNIT/ML 10 ML VIAL 17 UNIT SUBCUT (20:09)
[2022-01-22 03:56] VITALS: BP 120/68; PULSE 98; RESP 14; TEMP 37.8; O2SAT 96
[2022-01-22] MEDS: Omeprazole 20 MG CAPSULE.DR PO (05:08)
[2022-01-22] MEDS: Piperacillin Sodium/Tazobactam 3.375 GM in 0.9 % Sodium Chloride 50 ML IV (05:10)
[2022-01-22 05:53] LABS: Hematocrit 32.9 % (42.0-52.0); Mean Corpuscular HGB Conc 33.4 g/dl (31.0-36.0); Mean Corpuscular Volume 89.6 fL (80.0-98.0); Mean Platelet Volume 11.6 fL (9.4-12.4); Platelet Count 167 X10*3/uL (160-400); Red Blood Count 3.67 X10*6/uL (4.60-5.80); Red Cell Distribution Width 12.3 % (11.0-16.0); White Blood Count 15.6 X10*3/uL (4.8-10.8)
[2022-01-22 07:43] LABS: Glucose, Whole Blood 186 mg/dL (60-115)
[2022-01-22] MEDS: Sennosides 8.6 MG TABLET 17.2 MG PO (08:31)
[2022-01-22] MEDS: Pregabalin 100 MG CAPSULE PO ×2 (08:31→20:12)
[2022-01-22] MEDS: Finasteride 5 MG TABLET PO (08:31)
[2022-01-22] MEDS: Benztropine Mesylate 1 MG TABLET 2 MG PO ×2 (08:31→20:13)
[2022-01-22] MEDS: Enoxaparin Sodium 40 MG/0.4 ML SYRINGE SUBCUT (08:31)
[2022-01-22] MEDS: risperiDONE 2 MG TABLET PO (08:31)
[2022-01-22] MEDS: Lithium Carbonate 300 MG CAPSULE 900 MG PO (08:31)
[2022-01-22] MEDS: Propranolol HCL 20 MG TABLET PO (08:31)
[2022-01-22] MEDS: Multivitamin TABLET 1 TAB PO (08:31)
[2022-01-22] MEDS: Acetaminophen 325 MG TABLET 650 MG PO ×2 (08:32→20:13)
[2022-01-22] MEDS: 0.9 % Sodium Chloride Flush 3 ML SYRINGE IVFLUSH ×3 (08:32→20:14)
[2022-01-22] MEDS: Insulin Lispro 100 UNIT/ML 3 ML VIAL SUBCUT ×4 (08:32→20:14)
[2022-01-22 11:36] LABS: Glucose, Whole Blood 251 mg/dL (60-115)
--- NOTE | 2022-01-22 12:15 | P.PNIM_ITS ---
Subjective Subjective Date of Service: 01/22/22 Interval History: seen and examined this morning history obtained with the assistance of a green promotions specialist POD#2 s/p right TMA no overnight events noted no specific complaints this morning, having some pain at amputation site Review of Systems Review of Systems: Yes all other systems are reviewed and are negative Constitutional Constitutional: Denies chills and Denies fever(s) Cardiovascular Cardiovascular: Denies chest pain, Denies palpitations and Denies dyspnea Respiratory Respiratory: Denies cough and Denies dyspnea Gastrointestinal Gastrointestinal: Denies abdominal pain, Denies nausea and Denies vomiting Endocrine Endocrine: Denies palpitations Physical Exam Vital Signs: Vital Signs: Last Vital Signs Temp 100.0 F 01/22/22 03:56 Pulse 98 01/22/22 03:56 Resp 14 01/22/22 03:56 BP 120/68 01/22/22 03:56 Pulse Ox 96 01/22/22 03:56 O2 Del Method 01/22/22 03:56 O2 Flow Rate 4 01/20/22 17:00 BMI result Body Mass Index 22.7 Const: General: cooperative, comfortable, alert and awake Nutritional Appearance: average body habitus Resp: Effort & Inspection: normal respiratory effort and able to speak in complete sentences Cardio: Rate: regular rate Heart sounds: S1 normal heart sound present and S2 normal heart sound present GI: Inspection: No distended Palpation (GI): Soft to palpation Neuro: Other: grossly nonfocal Extrem: Other: b/l upper extremity tremors right foot wrapped in c/d/i stacia wrap General: Yes no pedal edema Objective Data Active Medications Acetaminophen (Acetaminophen 325 Mg Tablet) 650 mg PO Q6H PRN PRN Reason: Pain, Mild (Pain Scale 1-3) Last Admin: 01/22/22 08:32 Dose: 650 mg Documented By: RACIEL Benztropine Mesylate (Benztropine Mesylate 1 Mg Tablet) 2 mg PO BID [facility] Last Admin: 01/22/22 08:31 Dose: 2 mg Documented By: RACIEL Dextrose (Dextrose 50 % 25 Gm/50 Ml Syringe) 25 gm IVPUSH Q15M PRN; Protocol PRN Reason: per Hypoglycemia Standing Ord. Enoxaparin Sodium (Enoxaparin Sodium 40 Mg/0.4 Ml Syringe) 40 mg SUBCUT Q24H [facility] Last Admin: 01/22/22 08:31 Dose: 40 mg Documented By: RACIEL Finasteride (Finasteride 5 Mg Tablet) 5 mg PO DAILY [facility] Last Admin: 01/22/22 08:31 Dose: 5 mg Documented By: RACIEL Glucose (Glucose Gel 15 Gm Gel..Gram.) 15 gm PO Q15M PRN; Protocol PRN Reason: per Hypoglycemia Standing Ord. Promethazine HCl 12.5 mg/ (Sodium Chloride) 50.5 mls @ 202 mls/hr IV ONCE PRN PRN Reason: Nausea and Vomiting Insulin Glargine (Insulin Glargine,Hum.Rec.Anlog 100 Unit/Ml 10 Ml Vial) 17 unit SUBCUT BEDTIME [facility] Last Admin: 01/21/22 20:09 Dose: 17 unit Documented By: KARINA Insulin Human Lispro (Insulin Lispro 100 Unit/Ml 3 Ml Vial) 0 unit SUBCUT QIDACHS [facility]; Protocol Last Admin: 01/22/22 12:00 Dose: 6 unit Documented By: RACIEL Loris Carbonate (Loris Carbonate 300 Mg Capsule) 900 mg PO DAILY [facility] Last Admin: 01/22/22 08:31 Dose: 900 mg Documented By: RACIEL Melatonin (Melatonin 3 Mg Tablet) 6 mg PO BEDTIME PRN PRN Reason: Insomnia Last Admin: 01/20/22 20:38 Dose: 6 mg Documented By: KARINA Morphine Sulfate (Morphine Sulfate 2 Mg/Ml Cartridge) 2 mg IVPUSH Q3H PRN; Protocol PRN Reason: Pain, Severe (Pain Scale 7-10) Last Admin: 01/21/22 20:08 Dose: 2 mg Documented By: KARINA Multivitamins/Vitamin C (Multivitamin Tablet) 1 tab PO DAILY [facility] Last Admin: 01/22/22 08:31 Dose: 1 tab Documented By: RACIEL Pt Own (Elviteg-Cob- Emtri-Tenof Alafen [ Genvoya] 150-150-200 -10 Mg Table 1 tab PO DAILY@0800 [facility] Last Admin: 01/22/22 12:00 Dose: 1 tab Documented By: RACIEL Omeprazole (Omeprazole 20 Mg Capsule.) 20 mg PO DAILY@0630 [facility] Last Admin: 01/22/22 05:08 Dose: 20 mg Documented By: CATRACHITO Ondansetron HCl (Ondansetron Hcl 4 Mg/2 Ml Vial) 4 mg IVPUSH Q8H PRN PRN Reason: Nausea and Vomiting Ondansetron HCl (Ondansetron Hcl 4 Mg/2 Ml Vial) 4 mg IVPUSH ONCE PRN PRN Reason: Nausea and Vomiting Oxycodone HCl (Oxycodone Hcl Immed Release 5 Mg Tablet) 5 mg PO Q6H PRN PRN Reason: Pain, Moderate (Pain Scale 4-6 Last Admin: 01/21/22 08:15 Dose: 5 mg Documented By: CHANDRIKA Pharmacy Consult (Consult Rx Perform Med Rec) 1 each MISCELLANE ONCE PRN PRN Reason: Consult order Polyethylene Glycol (Polyethylene Glycol 3350 17 Gm Powd.Pack) 17 gm PO DAILY [facility] Last Admin: 01/22/22 08:38 Dose: Not Given Documented By: RACIEL Non-Admin Reason: Patient Refused Pravastatin Sodium (Pravastatin Sodium 40 Mg Tablet) 40 mg PO BEDTIME [facility] Last Admin: 01/21/22 20:08 Dose: 40 mg Documented By: KARINA Pregabalin (Pregabalin 100 Mg Capsule) 100 mg PO BID [facility] Last Admin: 01/22/22 08:31 Dose: 100 mg Documented By: RACIEL Propranolol HCl (Propranolol Hcl 20 Mg Tablet) 20 mg PO DAILY [facility]; Protocol Last Admin: 01/22/22 08:31 Dose: 20 mg Documented By: RACIEL Risperidone (Risperidone 2 Mg Tablet) 2 mg PO DAILY@0900 [facility] Last Admin: 01/22/22 08:31 Dose: 2 mg Documented By: RACIEL Risperidone (Risperidone 3 Mg Tablet) 6 mg PO BEDTIME [facility] Last Admin: 01/21/22 20:08 Dose: 6 mg Documented By: KARINA Senna (Sennosides 8.6 Mg Tablet) 17.2 mg PO DAILY@0900 [facility] Last Admin: 01/22/22 08:31 Dose: 17.2 mg Documented By: RACIEL Sodium Chloride (0.9 % Sodium Chloride Flush 3 Ml Syringe) [facility] Last Admin: 01/22/22 12:01 Dose: 3 ml Documented By: RACIEL Tamsulosin HCl (Tamsulosin Hcl 0.4 Mg Capsule) 0.4 mg PO BEDTIME [facility] Last Admin: 01/21/22 20:07 Dose: 0.4 mg Documented By: KARINA Labs CBC & Chem 7: 01/22/22 05:32 01/21/22 06:02 Labs: Laboratory Results - last 24 hr 01/21/22 01/21/22 01/21/22 11:18 15:16 19:27 MCV MCH MCHC RDW Plt Count MPV Absolute Nucleated RBC Nucleated RBC % (auto) POC Glucose 203 H 194 H 196 H 01/22/22 01/22/22 01/22/22 05:32 07:30 11:17 MCV 89.6 MCH 30.0 MCHC 33.4 RDW 12.3 Plt Count 167 MPV 11.6 Absolute Nucleated RBC 0.000 Nucleated RBC % (auto) 0.0 POC Glucose 186 H 251 H Assessment and Plan (1) Status post transmetatarsal amputation of foot: Status: Acute (2) Diabetic foot ulcer: Status: Acute Plan 56-year-old male with pertinent history of diabetic foot ulcer with chronic osteomyelitis, history of HIV and hepatitis, BPH, insulin-dependent diabetes mellitus, gastroesophageal reflux disease, mood disorder who was sent to the emergency department for evaluation of elevated blood glucose. DFU with chronic OM (necrosis of bone) and active drainage RLE ID appreciated, definitive management amputation, will not need usp abx after surgery arterial duplex unremarkable POD 2 s/p right TMA - follow up outpatient in 2 weeks for suture/staple removal wound care per vascular surgery rec Blood cultures negative seen by PT - rec STR Uncontrolled diabetes mellitus with hyperglycemia? on 70/30 at baseline basal bolus insulin - better controlled Mood disorder Continue benztropine, lithium, pregabalin, risperidone HIV Genvoya nonformulary, brought from home BPH Continue finasteride and Flomax Gastroesophageal reflux disease On PPI Essential tremor continue propranolol DVT prophylaxis:? Lovenox Full code reason for continued hospitalization: s/p TMA, pain control, safe disp dispo - From long-term at baseline. seen by PT - rec STR attending - dr. jacobs Time Spent With Patient Time: Total time managing care of this patient today ____ minutes. Quality Stroke Does the patient have a stroke diagnosis?: No VTE Prior VTE?: No VTE Risk Level:: Medical - moderate - high VTE Device Contraindication: Treatment Not Indicated VTE Drug Contraindication: Treatment Not Indicated
[2022-01-22 14:55] VITALS: BP 114/62; PULSE 82; RESP 18; TEMP 37.3; O2SAT 98
[2022-01-22 16:09] LABS: Glucose, Whole Blood 190 mg/dL (60-115)
[2022-01-22 18:56] VITALS: BP 133/64; PULSE 102; RESP 18; TEMP 37.4; O2SAT 90
[2022-01-22 19:48] LABS: Glucose, Whole Blood 174 mg/dL (60-115)
[2022-01-22] MEDS: Tamsulosin HCL 0.4 MG CAPSULE PO (20:12)
[2022-01-22] MEDS: Pravastatin Sodium 40 MG TABLET PO (20:12)
[2022-01-22] MEDS: risperiDONE 3 MG TABLET 6 MG PO (20:13)
[2022-01-22] MEDS: Insulin Glargine,Hum.rec.anlog 100 UNIT/ML 10 ML VIAL 17 UNIT SUBCUT (20:14)
[2022-01-23 03:08] VITALS: BP 112/63; PULSE 93; RESP 14; TEMP 37.4; O2SAT 97
[2022-01-23 07:10] VITALS: BP 137/77; PULSE 96; RESP 19; TEMP 37.6; O2SAT 98
[2022-01-23 07:16] LABS: Glucose, Whole Blood 149 mg/dL (60-115)
[2022-01-23 07:43] LABS: Hematocrit 30.2 % (42.0-52.0); Hemoglobin 10.3 g/dl (14.0-18.0); Mean Corpuscular HGB Conc 34.1 g/dl (31.0-36.0); Mean Corpuscular Hemoglobin 30.5 pg (27.0-33.0); Mean Corpuscular Volume 89.3 fL (80.0-98.0); Mean Platelet Volume 11.1 fL (9.4-12.4); Platelet Count 176 X10*3/uL (160-400); Red Blood Count 3.38 X10*6/uL (4.60-5.80); Red Cell Distribution Width 12.4 % (11.0-16.0); White Blood Count 16.7 X10*3/uL (4.8-10.8)
--- NOTE | 2022-01-23 08:03 | HO.PM.IMPN ---
Subjective Subjective Date of Service: 01/23/22 Interval History: seen and examined this morning history obtained with the assistance of a rn pediatric icu POD#2 s/p right TMA no overnight events noted no specific complaints this morning, having some pain at amputation site Physical Exam Vital Signs: Vital Signs: Last Vital Signs Temp 99.6 F 01/23/22 07:10 Pulse 96 01/23/22 07:10 Resp 19 01/23/22 07:10 BP 137/77 01/23/22 07:10 Pulse Ox 98 01/23/22 07:10 O2 Del Method 01/23/22 07:10 O2 Flow Rate 1 01/22/22 18:56 BMI result Body Mass Index 22.7 Const: Other: General: AO X 2, no acute distress Resp: CTA bilateral CVS: S1,S2,RRR GI: +BS, NT, no distention Skin: TMA dressing in place Neuro: motor grossly intact Psych: appropriate affect Objective Data Active Medications Acetaminophen (Acetaminophen 325 Mg Tablet) 650 mg PO Q6H PRN PRN Reason: Pain, Mild (Pain Scale 1-3) Last Admin: 01/22/22 20:13 Dose: 650 mg Documented By: CATRACHITO Benztropine Mesylate (Benztropine Mesylate 1 Mg Tablet) 2 mg PO BID [facility] Last Admin: 01/22/22 20:13 Dose: 2 mg Documented By: CATRACHITO Dextrose (Dextrose 50 % 25 Gm/50 Ml Syringe) 25 gm IVPUSH Q15M PRN; Protocol PRN Reason: per Hypoglycemia Standing Ord. Enoxaparin Sodium (Enoxaparin Sodium 40 Mg/0.4 Ml Syringe) 40 mg SUBCUT Q24H [facility] Last Admin: 01/22/22 08:31 Dose: 40 mg Documented By: RACIEL Finasteride (Finasteride 5 Mg Tablet) 5 mg PO DAILY [facility] Last Admin: 01/22/22 08:31 Dose: 5 mg Documented By: RACIEL Glucose (Glucose Gel 15 Gm Gel..Gram.) 15 gm PO Q15M PRN; Protocol PRN Reason: per Hypoglycemia Standing Ord. Promethazine HCl 12.5 mg/ (Sodium Chloride) 50.5 mls @ 202 mls/hr IV ONCE PRN PRN Reason: Nausea and Vomiting Insulin Glargine (Insulin Glargine,Hum.Rec.Anlog 100 Unit/Ml 10 Ml Vial) 17 unit SUBCUT BEDTIME [facility] Last Admin: 01/22/22 20:14 Dose: 17 unit Documented By: CATRACHITO Insulin Human Lispro (Insulin Lispro 100 Unit/Ml 3 Ml Vial) 0 unit SUBCUT QIDACHS [facility]; Protocol Last Admin: 01/23/22 08:01 Dose: Not Given Documented By: CHARANJIT Non-Admin Reason: No Insulin Coverage [place] Carbonate ([place] Carbonate 300 Mg Capsule) 900 mg PO DAILY [facility] Last Admin: 01/22/22 08:31 Dose: 900 mg Documented By: RACIEL Melatonin (Melatonin 3 Mg Tablet) 6 mg PO BEDTIME PRN PRN Reason: Insomnia Last Admin: 01/20/22 20:38 Dose: 6 mg Documented By: KARINA Morphine Sulfate (Morphine Sulfate 2 Mg/Ml Cartridge) 2 mg IVPUSH Q3H PRN; Protocol PRN Reason: Pain, Severe (Pain Scale 7-10) Last Admin: 01/21/22 20:08 Dose: 2 mg Documented By: KARINA Multivitamins/Vitamin C (Multivitamin Tablet) 1 tab PO DAILY [facility] Last Admin: 01/22/22 08:31 Dose: 1 tab Documented By: RACIEL Pt Own (Elviteg-Cob- Emtri-Tenof Alafen [ Genvoya] 150-150-200 -10 Mg Table 1 tab PO DAILY@0800 [facility] Last Admin: 01/22/22 12:00 Dose: 1 tab Documented By: RACIEL Omeprazole (Omeprazole 20 Mg Capsule.) 20 mg PO DAILY@0630 [facility] Last Admin: 01/23/22 06:21 Dose: Not Given Documented By: CATRACHITO Non-Admin Reason: Patient Refused Ondansetron HCl (Ondansetron Hcl 4 Mg/2 Ml Vial) 4 mg IVPUSH Q8H PRN PRN Reason: Nausea and Vomiting Ondansetron HCl (Ondansetron Hcl 4 Mg/2 Ml Vial) 4 mg IVPUSH ONCE PRN PRN Reason: Nausea and Vomiting Oxycodone HCl (Oxycodone Hcl Immed Release 5 Mg Tablet) 5 mg PO Q6H PRN PRN Reason: Pain, Moderate (Pain Scale 4-6 Last Admin: 01/21/22 08:15 Dose: 5 mg Documented By: CHANDRIKA Pharmacy Consult (Consult Rx Perform Med Rec) 1 each MISCELLANE ONCE PRN PRN Reason: Consult order Polyethylene Glycol (Polyethylene Glycol 3350 17 Gm Powd.Pack) 17 gm PO DAILY [facility] Last Admin: 01/22/22 08:38 Dose: Not Given Documented By: RACIEL Non-Admin Reason: Patient Refused Pravastatin Sodium (Pravastatin Sodium 40 Mg Tablet) 40 mg PO BEDTIME [facility] Last Admin: 01/22/22 20:12 Dose: 40 mg Documented By: CATRACHITO Pregabalin (Pregabalin 100 Mg Capsule) 100 mg PO BID [facility] Last Admin: 01/22/22 20:12 Dose: 100 mg Documented By: CATRACHITO Propranolol HCl (Propranolol Hcl 20 Mg Tablet) 20 mg PO DAILY [facility]; Protocol Last Admin: 01/22/22 08:31 Dose: 20 mg Documented By: RACIEL Risperidone (Risperidone 2 Mg Tablet) 2 mg PO DAILY@0900 [facility] Last Admin: 01/22/22 08:31 Dose: 2 mg Documented By: RACIEL Risperidone (Risperidone 3 Mg Tablet) 6 mg PO BEDTIME [facility] Last Admin: 01/22/22 20:13 Dose: 6 mg Documented By: CATRACHITO Senna (Sennosides 8.6 Mg Tablet) 17.2 mg PO DAILY@0900 [facility] Last Admin: 01/22/22 08:31 Dose: 17.2 mg Documented By: RACIEL Sodium Chloride (0.9 % Sodium Chloride Flush 3 Ml Syringe) 3 ml IVFLUSH QSHIFT [facility] Last Admin: 01/22/22 20:14 Dose: 3 ml Documented By: CATRACHITO Tamsulosin HCl (Tamsulosin Hcl 0.4 Mg Capsule) 0.4 mg PO BEDTIME [facility] Last Admin: 01/22/22 20:12 Dose: 0.4 mg Documented By: CATRACHITO Labs CBC & Chem 7: 01/23/22 07:16 01/21/22 06:02 Labs: Laboratory Results - last 24 hr 01/22/22 01/22/22 01/22/22 11:17 16:05 19:45 MCV MCH MCHC RDW Plt Count MPV Absolute Nucleated RBC Nucleated RBC % (auto) POC Glucose 251 H 190 H 174 H 01/23/22 01/23/22 07:08 07:16 MCV 89.3 MCH 30.5 MCHC 34.1 RDW 12.4 Plt Count 176 MPV 11.1 Absolute Nucleated RBC 0.000 Nucleated RBC % (auto) 0.0 POC Glucose 149 H Assessment and Plan (1) Diabetic foot ulcer: Status: Acute Plan 56-year-old male with pertinent history of diabetic foot ulcer with chronic osteomyelitis, history of HIV and hepatitis, BPH, insulin-dependent diabetes mellitus, gastroesophageal reflux disease, mood disorder who was sent to the emergency department for evaluation of elevated blood glucose. DFU with chronic OM (necrosis of bone) and active drainage RLE Was on broad spec Abx without effect and thus had TMA on 01/21, POD2 ID appreciated, changed to zosyn. definitive management amputation, will not need termite treater abx after surgery arterial duplex unremarkable POD 1 s/p right TMA - follow up outpatient in 2 weeks for suture/staple removal wound care per vascular surgery Blood cultures negative todate, WBC is still clasely monitor Uncontrolled diabetes mellitus with hyperglycemia? on 70/30 at baseline basal bolus insulin - better controlled Mood disorder Continue benztropine, lithium, pregabalin, risperidone HIV Genvoya nonformulary, brought from home BPH Continue finasteride and Flomax Gastroesophageal reflux disease On PPI Essential tremor continue propranolol DVT prophylaxis:? Lovenox Full code reason for continued hospitalization:iv abx, s/p TMA dispo - w PT eval tomorow - likely STR[facility]. PT eval pending Time Spent With Patient Time: Total time managing care of this patient today ____ minutes. Quality Stroke Does the patient have a stroke diagnosis?: No VTE Prior VTE?: No VTE Risk Level:: Medical - moderate - high VTE Device Contraindication: Treatment Not Indicated VTE Drug Contraindication: Treatment Not Indicated
[2022-01-23] MEDS: polyethylene glycoL 3350 17 GM POWD.PACK PO (08:39)
[2022-01-23] MEDS: Enoxaparin Sodium 40 MG/0.4 ML SYRINGE SUBCUT (08:39)
[2022-01-23] MEDS: Sennosides 8.6 MG TABLET 17.2 MG PO (08:40)
[2022-01-23] MEDS: risperiDONE 2 MG TABLET PO (08:40)
[2022-01-23] MEDS: Lithium Carbonate 300 MG CAPSULE 900 MG PO (08:40)
[2022-01-23] MEDS: Finasteride 5 MG TABLET PO (08:40)
[2022-01-23] MEDS: Multivitamin TABLET 1 TAB PO (08:40)
[2022-01-23] MEDS: 0.9 % Sodium Chloride Flush 3 ML SYRINGE IVFLUSH ×3 (08:40→21:46)
[2022-01-23] MEDS: Propranolol HCL 20 MG TABLET PO (08:40)
[2022-01-23] MEDS: Benztropine Mesylate 1 MG TABLET 2 MG PO ×2 (08:40→21:35)
[2022-01-23] MEDS: Pregabalin 100 MG CAPSULE PO ×2 (08:40→21:35)
[2022-01-23 11:26] LABS: Glucose, Whole Blood 297 mg/dL (60-115)
[2022-01-23] MEDS: Insulin Lispro 100 UNIT/ML 3 ML VIAL SUBCUT ×3 (12:01→21:36)
[2022-01-23 15:50] VITALS: BP 124/69; PULSE 81; RESP 18; TEMP 37.1; O2SAT 99
[2022-01-23 16:37] LABS: Glucose, Whole Blood 310 mg/dL (60-115)
[2022-01-23] MEDS: Morphine Sulfate 2 MG/ML CARTRIDGE IVPUSH (17:10)
[2022-01-23 20:00] VITALS: BP 132/76; PULSE 77; RESP 18; TEMP 37.9; O2SAT 99
[2022-01-23 21:11] LABS: Glucose, Whole Blood 157 mg/dL (60-115)
[2022-01-23] MEDS: risperiDONE 3 MG TABLET 6 MG PO (21:35)
[2022-01-23] MEDS: Tamsulosin HCL 0.4 MG CAPSULE PO (21:35)
[2022-01-23] MEDS: Insulin Glargine,Hum.rec.anlog 100 UNIT/ML 10 ML VIAL 17 UNIT SUBCUT (21:35)
[2022-01-23] MEDS: Acetaminophen 325 MG TABLET 650 MG PO (21:35)
[2022-01-23] MEDS: Pravastatin Sodium 40 MG TABLET PO (21:35)
[2022-01-23] MEDS: oxyCODONE HCl Immed Release 5 MG TABLET PO (21:40)
[2022-01-24 03:18] VITALS: BP 109/67; PULSE 79; RESP 20; TEMP 36.6; O2SAT 95
[2022-01-24 07:46] VITALS: BP 120/78; PULSE 79; RESP 19; TEMP 36.5; O2SAT 99
[2022-01-24 07:47] LABS: Glucose, Whole Blood 196 mg/dL (60-115)
[2022-01-24] MEDS: Insulin Lispro 100 UNIT/ML 3 ML VIAL SUBCUT ×2 (08:29→12:11)
--- NOTE | 2022-01-24 08:29 | HO.PM.IMPN ---
Subjective Subjective Date of Service: 01/24/22 Interval History: seen and examined this morning history obtained with the assistance of a photolithographer POD#3 s/p right TMA no overnight events noted no specific complaints this morning, having some pain at amputation site Review of Systems pain in the foot Physical Exam Vital Signs: Vital Signs: Last Vital Signs Temp 97.7 F 01/24/22 07:46 Pulse 79 01/24/22 07:46 Resp 19 01/24/22 07:46 BP 120/78 01/24/22 07:46 Pulse Ox 99 01/24/22 07:46 O2 Del Method 01/24/22 07:46 O2 Flow Rate 1 01/22/22 18:56 BMI result Body Mass Index 22.7 Const: Other: General: AO X 2, no acute distress Resp: CTA bilateral CVS: S1,S2,RRR GI: +BS, NT, no distention Skin: TMA dressing in place Neuro: motor grossly intact Psych: appropriate affect Objective Data Active Medications Acetaminophen (Acetaminophen 325 Mg Tablet) 650 mg PO Q6H PRN PRN Reason: Pain, Mild (Pain Scale 1-3) Last Admin: 01/23/22 21:35 Dose: 650 mg Documented By: CATRACHITO Benztropine Mesylate (Benztropine Mesylate 1 Mg Tablet) 2 mg PO BID [facility] Last Admin: 01/23/22 21:35 Dose: 2 mg Documented By: CATRACHITO Dextrose (Dextrose 50 % 25 Gm/50 Ml Syringe) 25 gm IVPUSH Q15M PRN; Protocol PRN Reason: per Hypoglycemia Standing Ord. Enoxaparin Sodium (Enoxaparin Sodium 40 Mg/0.4 Ml Syringe) 40 mg SUBCUT Q24H [facility] Last Admin: 01/23/22 08:39 Dose: 40 mg Documented By: CHARANJIT Finasteride (Finasteride 5 Mg Tablet) 5 mg PO DAILY [facility] Last Admin: 01/23/22 08:40 Dose: 5 mg Documented By: CHARANJIT Glucose (Glucose Gel 15 Gm Gel..Gram.) 15 gm PO Q15M PRN; Protocol PRN Reason: per Hypoglycemia Standing Ord. Promethazine HCl 12.5 mg/ (Sodium Chloride) 50.5 mls @ 202 mls/hr IV ONCE PRN PRN Reason: Nausea and Vomiting Insulin Glargine (Insulin Glargine,Hum.Rec.Anlog 100 Unit/Ml 10 Ml Vial) 17 unit SUBCUT BEDTIME [facility] Last Admin: 01/23/22 21:35 Dose: 17 unit Documented By: CATRACHITO Insulin Human Lispro (Insulin Lispro 100 Unit/Ml 3 Ml Vial) 0 unit SUBCUT QIDACHS [facility]; Protocol Last Admin: 01/23/22 21:36 Dose: 2 unit Documented By: CATRACHITO [place] Carbonate ([place] Carbonate 300 Mg Capsule) 900 mg PO DAILY [facility] Last Admin: 01/23/22 08:40 Dose: 900 mg Documented By: CHARANJIT Melatonin (Melatonin 3 Mg Tablet) 6 mg PO BEDTIME PRN PRN Reason: Insomnia Last Admin: 01/20/22 20:38 Dose: 6 mg Documented By: KARINA Morphine Sulfate (Morphine Sulfate 2 Mg/Ml Cartridge) 2 mg IVPUSH Q3H PRN; Protocol PRN Reason: Pain, Severe (Pain Scale 7-10) Last Admin: 01/23/22 17:10 Dose: 2 mg Documented By: CHARANJIT Multivitamins/Vitamin C (Multivitamin Tablet) 1 tab PO DAILY [facility] Last Admin: 01/23/22 08:40 Dose: 1 tab Documented By: CHARANJIT Pt Own (Elviteg-Cob- Emtri-Tenof Alafen [ Genvoya] 150-150-200 -10 Mg Table 1 tab PO DAILY@0800 [facility] Last Admin: 01/23/22 08:43 Dose: 1 tab Documented By: CHARANJIT Omeprazole (Omeprazole 20 Mg Octavio.) 20 mg PO DAILY@0630 [facility] Last Admin: 01/24/22 06:37 Dose: Not Given Documented By: CATRACHITO Non-Admin Reason: Patient Refused Ondansetron HCl (Ondansetron Hcl 4 Mg/2 Ml Vial) 4 mg IVPUSH Q8H PRN PRN Reason: Nausea and Vomiting Ondansetron HCl (Ondansetron Hcl 4 Mg/2 Ml Vial) 4 mg IVPUSH ONCE PRN PRN Reason: Nausea and Vomiting Oxycodone HCl (Oxycodone Hcl Immed Release 5 Mg Tablet) 5 mg PO Q6H PRN PRN Reason: Pain, Moderate (Pain Scale 4-6 Last Admin: 01/23/22 21:40 Dose: 5 mg Documented By: CATRACHITO Pharmacy Consult (Consult Rx Perform Med Rec) 1 each MISCELLANE ONCE PRN PRN Reason: Consult order Polyethylene Glycol (Polyethylene Glycol 3350 17 Gm Powd.Pack) 17 gm PO DAILY [facility] Last Admin: 01/23/22 08:39 Dose: 17 gm Documented By: CHARANJIT Pravastatin Sodium (Pravastatin Sodium 40 Mg Tablet) 40 mg PO BEDTIME [facility] Last Admin: 01/23/22 21:35 Dose: 40 mg Documented By: CATRACHITO Pregabalin (Pregabalin 100 Mg Capsule) 100 mg PO BID [facility] Last Admin: 01/23/22 21:35 Dose: 100 mg Documented By: CATRACHITO Propranolol HCl (Propranolol Hcl 20 Mg Tablet) 20 mg PO DAILY [facility]; Protocol Last Admin: 01/23/22 08:40 Dose: 20 mg Documented By: CHARANJIT Risperidone (Risperidone 2 Mg Tablet) 2 mg PO DAILY@0900 [facility] Last Admin: 01/23/22 08:40 Dose: 2 mg Documented By: CHARANJIT Risperidone (Risperidone 3 Mg Tablet) 6 mg PO BEDTIME [facility] Last Admin: 01/23/22 21:35 Dose: 6 mg Documented By: CATRACHITO Senna (Sennosides 8.6 Mg Tablet) 17.2 mg PO DAILY@0900 [facility] Last Admin: 01/23/22 08:40 Dose: 17.2 mg Documented By: CHARANJIT Sodium Chloride (0.9 % Sodium Chloride Flush 3 Ml Syringe) 3 ml [facility] Last Admin: 01/23/22 21:46 Dose: 3 ml Documented By: CATRACHITO Tamsulosin HCl (Tamsulosin Hcl 0.4 Mg Capsule) 0.4 mg PO BEDTIME [facility] Last Admin: 01/23/22 21:35 Dose: 0.4 mg Documented By: CATRACHITO Labs CBC & Chem 7: 01/23/22 07:16 01/21/22 06:02 Labs: Laboratory Results - last 24 hr 01/23/22 01/23/22 01/23/22 11:13 16:32 21:07 POC Glucose 297 H 310 H 157 H 01/24/22 07:43 POC Glucose 196 H Assessment and Plan (1) Diabetic foot ulcer: Status: Acute Plan 56-year-old male with pertinent history of diabetic foot ulcer with chronic osteomyelitis, history of HIV and hepatitis, BPH, insulin-dependent diabetes mellitus, gastroesophageal reflux disease, mood disorder who was sent to the emergency department for evaluation of elevated blood glucose. Diabetic foot ulcer with chronic OM (necrosis of bone) and active drainage RLE Was on broad spec Abx without effect and thus had TMA on 01/21, POD3 Was on Zosyn, seen by ID with definitive manamgement being amputation and furthermore no need for Abx after amputation arterial duplex unremarkable POD 1 s/p right TMA - follow up outpatient in 2 weeks for suture/staple removal, dressing changes per surgery Blood cultures negative todate, WBC is still clasely monitor Uncontrolled diabetes mellitus with hyperglycemia? on 70/30 at baseline basal bolus insulin - better controlled Mood disorder Continue benztropine, lithium, pregabalin, risperidone HIV Genvoya nonformulary, brought from home BPH Continue finasteride and Flomax Gastroesophageal reflux disease On PPI Essential tremor continue propranolol DVT prophylaxis:? Lovenox Full code reason for continued hospitalization:iv abx, s/p TMA dispo - w PT eval tomorow - likely STR. From longterm at baseline. PT eval pending Time Spent With Patient Time: Total time managing care of this patient today ____ minutes. Quality Stroke Does the patient have a stroke diagnosis?: No VTE Prior VTE?: No VTE Risk Level:: Medical - moderate - high VTE Device Contraindication: Treatment Not Indicated VTE Drug Contraindication: Treatment Not Indicated
[2022-01-24] MEDS: risperiDONE 2 MG TABLET PO (08:30)
[2022-01-24] MEDS: Propranolol HCL 20 MG TABLET PO (08:30)
[2022-01-24] MEDS: Lithium Carbonate 300 MG CAPSULE 900 MG PO (08:30)
[2022-01-24] MEDS: Pregabalin 100 MG CAPSULE PO (08:30)
[2022-01-24] MEDS: Finasteride 5 MG TABLET PO (08:30)
[2022-01-24] MEDS: Enoxaparin Sodium 40 MG/0.4 ML SYRINGE SUBCUT (08:30)
[2022-01-24] MEDS: Benztropine Mesylate 1 MG TABLET 2 MG PO (08:30)
[2022-01-24] MEDS: Multivitamin TABLET 1 TAB PO (08:30)
[2022-01-24] MEDS: Sennosides 8.6 MG TABLET 17.2 MG PO (08:30)
[2022-01-24] MEDS: polyethylene glycoL 3350 17 GM POWD.PACK PO (08:30)
[2022-01-24] MEDS: 0.9 % Sodium Chloride Flush 3 ML SYRINGE IVFLUSH (08:31)
[2022-01-24 09:22] LABS: Hematocrit 33.1 % (42.0-52.0); Hemoglobin 10.9 g/dl (14.0-18.0); Mean Corpuscular HGB Conc 32.9 g/dl (31.0-36.0); Mean Corpuscular Hemoglobin 29.1 pg (27.0-33.0); Mean Corpuscular Volume 88.5 fL (80.0-98.0); Mean Platelet Volume 11.3 fL (9.4-12.4); Platelet Count 207 X10*3/uL (160-400); Red Blood Count 3.74 X10*6/uL (4.60-5.80); Red Cell Distribution Width 12.4 % (11.0-16.0); White Blood Count 11.8 X10*3/uL (4.8-10.8)
[2022-01-24 09:35] LABS: Anion Gap 13 (12-20); Blood Urea Nitrogen 12 mg/dL (9-16); Calcium 9.7 mg/dL (8.4-10.2); Carbon Dioxide 27 mmol/L (22-29); Chloride 103 mmol/L (96-108); Creatinine Clr Calc Pharmacy 60.7; Estimated Glomerular Filt Rate > 60; Glucose Random 199 mg/dL (60-115); Potassium 4.3 mmol/L (3.3-5.1); Sodium 139 mmol/L (135-145)
--- NOTE | 2022-01-24 10:57 | P.DS_ITS ---
DS: Providers Provider Date of Service: 01/24/22 Date of admission: 01/15/22 00:46 Primary care physician: Shell Lopez MD Consults: 01/15/22 01:12 Consult to Infectious Diseases Routine Consulting Provider: Angie Wade Reason for consultation: diabetic foot infections Consult to Vascular Surgery Routine Consulting Provider: Hollis Kramer Reason for consultation: diabetic foot infections DS: Diagnosis Discharge Diagnosis (1) Diabetic foot ulcer: Status: Acute DS: Summary Hospital Course Hospital Course: Chief Complaint: Hyperglycemia This is a 56-year-old male with pertinent history of diabetic foot ulcer with chronic osteomyelitis, history of HIV and hepatitis, BPH, insulin-dependent diabetes mellitus, gastroesophageal reflux disease, mood disorder who was sent from the emergency department for evaluation of elevated blood glucose.? Patient's point of care blood glucose at the [place] [facility] was in the 600s and he was sent here for further evaluation and management.? Patient is Italian speaking and history was taken using manager research and development services.? He has no complaints at this time.? States he had told his nurse at the [place] [facility] to not send him to the hospital.? Stated that he does not like staying in the hospital.? As per the nurse in the ER, patient's bilateral diabetic foot wounds with purulent foul-smelling drainage.? Patient states the drainage has increased over the last 1 week.? Also has been having occasional fevers. Of note, patient was recently admitted and discharged on 01/06 with diabetic foot infection.? Initially was admitted on broad-spectrum IV antibiotics, general surgery was consulted who did wound debridement.? Infectious Disease was consulted who felt the patient did not need IV antibiotics for chronic osteomyelitis and patient was discharged on p.o. doxycycline plus Augmentin. Hospital course: Diabetic foot ulcer? with chronic osteomylitis (necrosis of bone) and active drainage RLE.. Was treated with IV antibiotic but deemed not healable and that definitive treatment was amputation. He Trasmetarsal amputation (TMA) on 01/[address] Kramer and margin was far and clean and therefore doesn't need antibiotics anymor. Cultures were negative, WBC were high but now down. Diabetes--to resume home regimen Mood disorder Continue benztropine, lithium, pregabalin, risperidone HIV Genvoya nonformulary,? brought from home BPH Continue finasteride and Flomax Gastroesophageal reflux disease On PPI Essential tremor continue propranolol Patient was offered rehab but has declined this, therefore will be discharged with homehealth. Time Spent with Patient Time attestation: Total time managing care of this patient today ____ minutes. Discharge coordination time: Greater than 30 minutes Quality: Safe Use of Opioids Does Pt have an Active Cancer Diagnosis on the Problem List?: No Quality: Stroke Does the patient have a stroke diagnosis?: No Physical Exam 2 Vital Signs: Vital Signs: Last Vital Signs Temp 97.7 F 01/24/22 07:46 Pulse 79 01/24/22 07:46 Resp 19 01/24/22 07:46 BP 120/78 01/24/22 07:46 Pulse Ox 99 01/24/22 07:46 O2 Del Method 01/24/22 07:46 O2 Flow Rate 1 01/22/22 18:56 BMI result Body Mass Index 22.7 DS: Data Data Completed and Pending Completed studies during hospitalization [Text1]: Procedures Pending studies at discharge: Pending at discharge 01/20/22 16:16 Surgical [PTH] Routine Labs on day of discharge: Laboratory Results - last 24 hr 01/23/22 01/23/22 01/23/22 11:13 16:32 21:07 WBC RBC Hgb Hct MCV MCH MCHC RDW Plt Count MPV Absolute Nucleated RBC Nucleated RBC % (auto) Sodium Potassium Chloride Carbon Dioxide Anion Gap BUN Creatinine Estim Creat Clear Calc Estimated GFR POC Glucose 297 H 310 H 157 H Random Glucose Calcium 01/24/22 01/24/22 01/24/22 07:43 08:45 08:45 WBC 11.8 H RBC 3.74 L Hgb 10.9 L Hct 33.1 L MCV 88.5 MCH 29.1 MCHC 32.9 RDW 12.4 Plt Count 207 MPV 11.3 Absolute Nucleated RBC 0.000 Nucleated RBC % (auto) 0.0 Sodium 139 Potassium 4.3 Chloride 103 Carbon Dioxide 27 Anion Gap 13 BUN 12 Creatinine 1.21 Estim Creat Clear Calc 60.7 Estimated GFR > 60 POC Glucose 196 H Random Glucose 199 H Calcium 9.7 Discharge Plan Discharge Anticipated Discharge Date/Time: 01/24/22 10:51 Patient Disposition: Home Health Service Discharge Diagnosis: Diabetic foot ulcer, osteomylitis Referrals: Begolli,Shell M, MD [Primary Care Provider] - 1 Week Discharge Medications: New oxycodone 5 mg Tablet 5 mg PO Q6H PRN (Reason: Pain, Moderate (Pain Scale 4-6) Qty: 20 0RF Rx Instructions: Partial Fill upon patient request. Continued omeprazole 20 mg capsule,delayed release(DR/EC) 20 mg PO DAILY@0630 insulin asp prt-insulin aspart [Novolog Mix 70-30FlexPen U-100] 100 unit/mL (70-30) insulin pen 15 unit subcut DAILY@0900 sennosides [senna] 8.6 mg tablet 17.2 mg PO DAILY@0900 risperidone 2 mg tablet 2 mg PO DAILY@0900 insulin asp prt-insulin aspart [Novolog Mix 70-30FlexPen U-100] 100 unit/mL (70-30) insulin pen 17 unit subcut DAILY@2100 Cerovite Senior 0.4 mg-300 mcg- 250 mcg Tablet 1 tab PO DAILY pregabalin 100 mg capsule 100 mg PO BID ketoconazole 2 % Shampoo 1 appl TOPICAL Q7D Genvoya [phone] mg tablet 1 tab PO DAILY pravastatin 40 mg tablet 40 mg PO BEDTIME lithium carbonate 300 mg tablet 900 mg PO DAILY propranolol 20 mg tablet 20 mg PO DAILY risperidone 3 mg tablet 6 mg PO BEDTIME benztropine 2 mg tablet 2 mg PO BID polyethylene glycol 3350 [Gavilax] 17 gram/dose powder 17 g PO DAILY tamsulosin 0.4 mg capsule 0.4 mg PO BEDTIME 90 Days Qty: 90 3RF finasteride 5 mg tablet 5 mg PO DAILY 90 Days Qty: 90 1RF Discontinued doxycycline hyclate 100 mg capsule 100 mg PO BID Qty: 28 0RF amoxicillin-pot clavulanate [Augmentin] 500-125 mg tablet 1 tab PO BID Qty: 28 0RF Discharge Orders: Discharge Order (Routine); Ordered 01/24/22 Ordered By: Ranulfo Serrano Diet: Diabetic diet Activity on Discharge: As tolerated Stand Alone Forms: Patient Portal Discharge page Activity Restrictions/Additional Instructions: Wound care upon discharge: xeroform, 4x4 and Kerlix wrap to be changed daily. Please call Dr. Kramer at [phone] for 2 week follow up for suture and staple removal Care Plan Goals: complete healing of amputation site Health Concerns: Diabetic foot ulcer diabetes mood desorder Plan of Treatment: Wound care upon discharge: xeroform, 4x4 and Kerlix wrap to be changed daily. Please call Dr. Kramer at [phone] for 2 week follow up for suture and staple removal Assessment: as above
[2022-01-24 11:23] LABS: Glucose, Whole Blood 184 mg/dL (60-115)
--- NOTE | 2022-01-24 12:09 | MHC.CM.PN ---
PT IS READY TO DC AND REFUSING STR CM CALLED [facility] [phone] AND INFORMED HIM OF INTENT TO DC HE REPORTS THIS MUST BE CLEARED BY THE [facility] NURSE, CHETAN [phone] VM MESSAGE LEFT FOR CHETAN REQUESTING A CALL BACK AND INFORMING HER OF DC ORDERS
== END 2022-01-24 15:28 | disposition home health service (06) | DRG 305 ==
LOC: HO.ED 23:39 → HO.EDOVER 01-15 00:51 → HO.S3 01-15 04:04
PROVIDERS: Internal Medicine; Nurse Practitioner Family; Physician Assistant Medical; Surgery Vascular Surgery; Admitting Provider Student in an Organized Health Care Education/Training Program; Emergency Provider Emergency Medicine; PCP Pediatrics; Visit Provider Internal Medicine
PROC: 0Y6M0Z9 Detachment at Right Foot, Partial 1st Ray, Open Approach (ICD-10-PCS; CPT 28805; principal; 2022-01-20 15:30)
DX: E11.69 Type 2 diabetes mellitus with other specified complication (principal); M86.671 Other chronic osteomyelitis, right ankle and foot; L97.514 Non-pressure chronic ulcer of other part of right foot with necrosis of bone; E11.65 Type 2 diabetes mellitus with hyperglycemia; F17.210 Nicotine dependence, cigarettes, uncomplicated; D72.829 Elevated white blood cell count, unspecified; F39 Unspecified mood [affective] disorder; Z21 Asymptomatic human immunodeficiency virus [HIV] infection status; N40.0 Benign prostatic hyperplasia without lower urinary tract symptoms; E11.621 Type 2 diabetes mellitus with foot ulcer; G25.0 Essential tremor; K21.9 Gastro-esophageal reflux disease without esophagitis; Z71.6 Tobacco abuse counseling; Z20.822 Contact with and (suspected) exposure to COVID-19; Z88.6 Allergy status to analgesic agent; Z88.8 Allergy status to other drugs, medicaments and biological substances; Z79.4 Long term (current) use of insulin; Z79.899 Other long term (current) drug therapy
CPT/HCPCS: 36415; 73620; 80048; 81001; 82947; 83605; 85025; 85027; 87040; 87635; 88305; 88311; 93923; 93925; 97163; 99284; J0692; J1650; J2270; J2370; J2405; J2543; J3010; J3370

== ENCOUNTER → 2022-02-08 08:55 | Outpatient (BNVA) | payer MEDICAID, SELFPAY | PROVIDERS: PCP Pediatrics; Visit Provider Surgery Vascular Surgery | DX: I73.9 Peripheral vascular disease, unspecified (principal) | CPT/HCPCS: 99212 ==

== ENCOUNTER 2022-02-14 11:25 | Emergency (ER) | payer MEDICAID, SELFPAY ==
--- NOTE | ~2022-02-14 | XR_ITS ---
EXAMINATION: XR FOOT, RIGHT CLINICAL INFORMATION: Status post right foot amputation. COMPARISON: 01/15/2022 TECHNIQUE: 3 views of the right foot. FINDINGS: Status post amputation through the level of the cuneiforms and cuboid. There is postoperative irregularity of the distal surface of the residual medial cuneiform and of the residual cuboid, and ossific fragment projects lateral to the cuboid. Alignment is normal at the ankle, subtalar and Chopart joints. There are prominent enthesophytes of the calcaneus. XR/XR foot RT 2V IMPRESSION: * This is a postoperative baseline radiograph after forefoot amputation. * Large calcaneal enthesophytes are noted.
[2022-02-14 11:54] VITALS: BP 126/65; PULSE 88; RESP 18; TEMP 36.9; BMI 18.2
[2022-02-14 11:56] LABS: MANUAL DIFF FLAG NO
--- NOTE | 2022-02-14 11:57 | PC.NURSE ---
56 y/o M [facility] from retirement. s/p L foot amputation 3 weeks ago, per staff at retirement patient has been walking on the amputation and it is now infected. pt reports pain to site. AOx3, calm and cooperative, VSS. has tremors at baseline.
[2022-02-14 12:00] LABS: Basophils Percent Auto 0.2 % (0-2); Eosinophils Absolute Auto 0.1 X10*3/uL (0.0-0.4); Eosinophils Percent Auto 0.9 % (0-4); Hematocrit 33.1 % (42.0-52.0); Hemoglobin 10.8 g/dl (14.0-18.0); Imm Gran Abs Auto 0.08 X10*3/uL (0.00-0.03); Imm Gran Pct Auto 0.5 % (0.0-0.4); Lymphocytes Absolute Auto 1.1 X10*3/uL (1.2-4.9); Lymphocytes Percent Auto 7.2 % (20-40); Mean Corpuscular HGB Conc 32.6 g/dl (31.0-36.0); Mean Corpuscular Hemoglobin 28.5 pg (27.0-33.0); Mean Corpuscular Volume 87.3 fL (80.0-98.0); Mean Platelet Volume 11.1 fL (9.4-12.4); Monocytes Absolute Auto 1.2 X10*3/uL (0.1-1.2); Monocytes Percent Auto 8.1 % (2-11); Neutrophils Absolute Auto 12.4 x10*3/uL (2.0-8.3); Neutrophils Percent Auto 83.1 % (45-73); Platelet Count 317 X10*3/uL (160-400); Red Blood Count 3.79 X10*6/uL (4.60-5.80); Red Cell Distribution Width 12.3 % (11.0-16.0); White Blood Count 14.9 X10*3/uL (4.8-10.8)
[2022-02-14 12:15] LABS: Alanine Aminotransferase 26 U/L (0-40); Albumin Level 3.8 g/dL (3.5-5.0); Alkaline Phosphatase 113 U/L (39-117); Anion Gap 15 (12-20); Aspartate Amino Transferase 27 U/L (5-37); Bilirubin Total 0.3 mg/dL (0.0-1.0); Blood Urea Nitrogen 11 mg/dL (9-16); Calcium 10.1 mg/dL (8.4-10.2); Carbon Dioxide 19 mmol/L (22-29); Chloride 103 mmol/L (96-108); Creatinine Clr Calc Pharmacy 48.2; Estimated Glomerular Filt Rate 57; Glucose Fasting 310 mg/dL (60-99); Lactate Dehydrogenase 248 U/L (118-273); Potassium 4.4 mmol/L (3.3-5.1); Sodium 133 mmol/L (135-145); Total Protein 7.5 g/dL (6.5-8.0)
[2022-02-14 12:16] LABS: INTERNATIONAL NORM RATIO 1.2 (0.9-1.1); Prothrombin Time 14.2 SEC (10.0-13.1)
--- NOTE | 2022-02-14 14:05 | ED_ITS ---
HPI - General Adult General Chief complaint: Extremity Problem Stated complaint: R FOOT PAIN S/P AMPUTATION, VNA ?'S INF PER EMS Time Seen by Provider: 02/14/22 11:49 Source: patient Mode of arrival: ambulatory Limitations: no limitations History of Present Illness HPI narrative: 56-year-old male with past medical history of HIV, peripheral vascular disease, chronic osteomyelitis, and status post 3 weeks right transmetatarsal amputation presents to ED for evaluation of wound. Patient has no complaint from wound. Patient denies any foul odor, pain, or obvious discharge. Patient's states no change. Patient was sent by visiting nurse for evaluation. Patient's states new nurse not familiar with wound saw foot and recommend patient sent to the ED for evauation. Related Data Home Medications Medication Instructions Recorded Confirmed benztropine 2 mg tablet 2 mg PO BID 02/16/21 01/15/22 elviteg 150 mg-cob 150 mg-emtricit 1 tab PO DAILY 02/16/21 01/15/22 200 mg-tenofo alafenam 10 mg tablet (Genvoya) lithium carbonate 300 mg tablet 900 mg PO DAILY 02/16/21 01/15/22 pravastatin 40 mg tablet 40 mg PO BEDTIME 02/16/21 01/15/22 propranolol 20 mg tablet 20 mg PO DAILY 02/16/21 01/15/22 risperidone 3 mg tablet 6 mg PO BEDTIME 02/16/21 01/15/22 insulin aspar prot-insulin aspart 15 unit subcut DAILY@0900 03/05/21 01/15/22 100 unit/mL (70-30) subcutaneous pen (Novolog Mix 70-30FlexPen U-100) omeprazole 20 mg capsule,delayed 20 mg PO DAILY@0630 03/05/21 01/15/22 release izbvizxs-shb-idmro acid 0.4 1 tab PO DAILY 07/27/21 01/15/22 mg-lycopene 300 mcg-lutein 250 mcg tablet (Cerovite Senior) pregabalin 100 mg capsule 100 mg PO BID 07/27/21 01/15/22 polyethylene glycol 3350 17 17 g PO DAILY 09/02/21 01/15/22 gram/dose oral powder (Gavilax) ketoconazole 2 % shampoo 1 appl topical Q7D 10/12/21 01/15/22 insulin aspar prot-insulin aspart 17 unit subcut DAILY@2100 01/01/22 01/15/22 100 unit/mL (70-30) subcutaneous pen (Novolog Mix 70-30FlexPen U-100) risperidone 2 mg tablet 2 mg PO DAILY@0900 01/01/22 01/15/22 sennosides 8.6 mg tablet (senna) 17.2 mg PO DAILY@0900 01/01/22 01/15/22 Previous Rx's Medication Instructions Recorded finasteride 5 mg tablet 5 mg PO DAILY 90 days #90 tabs 10/28/21 tamsulosin 0.4 mg capsule 0.4 mg PO BEDTIME 90 days #90 caps 10/28/21 oxycodone 5 mg tablet 5 mg PO Q6H PRN Pain, Moderate 01/24/22 (Pain Scale 4-6 #20 tabs walker (Ultra-Light Rollator misc) #1 ea 01/24/22 Allergies Allergy/AdvReac Type Severity Reaction Status Date / Time acetaminophen [From TYLENOL] Allergy Unknown UNKNOWN Verified 02/08/22 09:07 aspirin [ASA] Allergy Unknown AGITATION Verified 02/08/22 09:07 chlorpromazine Allergy Unknown Verified 02/08/22 09:07 [From Thorazine] trazodone [TRAZODONE] AdvReac Unknown HYPER Verified 02/08/22 09:07 Review of Systems Review of Systems: Right foot wound evaluation Yes all other systems are reviewed and are negative [facility] Past Medical History Medical History BPH w urinary obs/LUTS Callus of foot Chronic prostatitis Diabetes Diabetic foot ulcers Elevated C-reactive protein (CRP) Elevated erythrocyte sedimentation rate Enterococcal bacteremia Erectile dysfunction due to arterial insufficiency Eschar of foot Hepatitis HIV (human immunodeficiency virus infection) Mood disorder Open wnd foot-complicated Osteomyelitis of left foot Sepsis Urinary hesitancy Surgical History No pertinent past surgical history Family History Family History Father No problems noted. Mother No problems noted. Social History Social History Household Members: Other Household Members Other:: care home Housing: House Housing Other:: shelter Do you presently have visiting nurse or other home services: Yes Unable to assess alcohol history related to: Unknown Alcohol intake: never Patient Tobacco Use Status: Current everyday Tobacco user Tobacco use type: Cigarette Cigarette Packs Per Day: 1 Cigarettes Per Day: 20.0 Smoked in Last 30 Days: No Second Hand Smoke Exposure: Yes Advance Directives: No Advance Directives Information Provided: Yes service: No Current occupational status: unemployed Physical Exam ED Vital Signs: Vital Signs - 24 hr 02/14/22 11:54 02/14/22 15:20 02/14/22 16:33 Temperature 98.5 F 99.0 F Pulse Rate 88 78 76 Respiratory Rate 18 14 17 Blood Pressure 126/65 102/71 106/64 Pulse Oximetry 98 97 Oxygen Delivery Method Room Air Room Air Room Air 02/14/22 18:12 Temperature Pulse Rate 78 Respiratory Rate 18 Blood Pressure 103/66 Pulse Oximetry 98 Oxygen Delivery Method Room Air BMI result Body Mass Index 18.2 Const General: cooperative, healthy appearing, comfortable, no acute distress, well developed, alert, awake and Physically active Orientation/consciousness: oriented to person, oriented to place, oriented to time and patient oriented x3 HENMT Head: Yes normal to inspection, Yes No palpable skull fracture present, Yes n ormocephalic, Yes atraumatic and No abrasion Eyes General: appearance normal, both eyes and all related structures Neck Neck: Yes normal visual inspection, Yes full ROM, Yes no lymphadenopathy, Yes no meningeal signs, Yes trachea midline, Yes supple, No anterior neck swelling and No tender Chest Chest palpation & inspection: normal inspection of the chest and normal palpation of entire chest wall Resp Effort & Inspection: normal respiratory effort and able to speak in complete sentences Auscultation: clear to auscultation bilaterally Cardio Jugular venous distension: no JVD Heart sounds: S1 normal heart sound present and S2 normal heart sound present GI Inspection: Yes normal to inspection and No abdominal wall ecchymosis Palpation (GI): Soft to palpation, not firm, nontender, no guarding and not rigid General: No CVA tenderness and Yes no CVA tenderness Back/Spine/Pelvis Back: no CVA tenderness, No CVA tenderness and No back tenderness Skin General skin exam: no rashes or lesions noted and elasticity normal Neuro Other: no neuro defecit General: oriented to person, oriented to place, oriented to time, patient oriented x3, tone normal, moves all extremities, Normal light touch and pain sensation, no meningeal signs, no focal motor deficits and CN's II-XI intact bilaterally Extrem Other: RLE: Negative for tenderness, surrounding erythema, or foul odor. No active dischare Psych Appearance: grossly normal, well kempt and not disheveled Course Course Course Narrative: Wound does not look infected but we will do labs, also likely acid blood cultures and x-ray. Will contact Dr. Kramer. Reevaluation(s) Reevaluation #1: Patient afebrile. Patient not septic. Labs are normal ( WBC usually elevated and only at 14). Lactic acid negative. X-ray negative for osteomyelitis. Case was discussed with Dr. Kramer. He was sent picture of patient's foot and he states foot looks like the same from when he last saw patient at office visit on February 08, 2022. He states admit only if there is any suspicion for infection, otherwise follow up as outpatient. Physical exam, labs, and imaging negative for infection. Time: 18:15 Medical Decision Making Medical Decision Making [facility] Narrative: 56 uold severe male history of HIV, diabetes, chronic osteomyelitis, LYNETTE, presents with evaluation of right s/p Right metatarsal amputation wound as requesting by nurse Differential Diagnosis Differential Diagnoses: The differential diagnosis associated with the presentation includes (Cellulitis, wound infection, osteomyelitis,) Admission/Observation Consideration of admission/observation: Escalation of care including admission/observation considered Consult Healthcare Provider Management of the patient was discussed with: Fleet Maintenance Manager (Dr. Kramer Vascular Surgeon) Spoke with Dr. Kramer of vascular surgeon who performed procedure 3 weeks ago. He states wound looks the same. I will discharge patient for outpatient follow- up. Lab Data [facility] Lab Attestation statement: I reviewed the patient's lab results. 02/14/22 11:50 02/14/22 11:50 Labs: Lab Results 02/14/22 02/14/22 02/14/22 Range/Units 11:50 11:50 11:51 WBC 14.9 H (4.8-10.8) X10*3/uL RBC 3.79 L (4.60-5.80) X10*6/uL Hgb 10.8 L (14.0-18.0) g/dl Hct 33.1 L (42.0-52.0) % MCV 87.3 (80.0-98.0) fL MCH 28.5 (27.0-33.0) pg MCHC 32.6 (31.0-36.0) g/dl RDW 12.3 (11.0-16.0) % Plt Count 317 D (160-400) X10*3/uL MPV 11.1 (9.4-12.4) fL Immature Gran % (Auto) 0.5 H (0.0-0.4) % Neut % (Auto) 83.1 H (45-73) % Lymph % (Auto) 7.2 L (20-40) % [place] % (Auto) 8.1 (2-11) % Eos % (Auto) 0.9 (0-4) % Baso % (Auto) 0.2 (0-2) % Lymph # (Auto) 1.1 L (1.2-4.9) X10*3/uL [place] # (Auto) 1.2 (0.1-1.2) X10*3/uL Eos # (Auto) 0.1 (0.0-0.4) X10*3/uL Baso # (Auto) 0.0 (0.0-0.2) X10*3/uL Abs Immat Gran (auto) 0.08 H (0.00-0.03) X10*3/uL Absolute Neuts (auto) 12.4 H (2.0-8.3) x10*3/uL Absolute Nucleated RBC 0.000 (0.0-0.012) X10*3/uL Nucleated RBC % (auto) 0.0 (0.0-0.2) /100WBC PT 14.2 H (10.0-13.1) SEC INR 1.2 H (0.9-1.1) Sodium 133 L (135-145) mmol/L Potassium 4.4 (3.3-5.1) mmol/L Chloride 103 (96-108) mmol/L Carbon Dioxide 19 L (22-29) mmol/L Anion Gap 15 (12-20) BUN 11 (9-16) mg/dL Creatinine 1.30 (0.5-1.4) mg/dL Estim Creat Clear Calc 48.2 Estimated GFR 57 Fasting Glucose 310 H D (60-99) mg/dL Lactic Acid (0.5-2.0) mmol/L Calcium 10.1 (8.4-10.2) mg/dL Total Bilirubin 0.3 (0.0-1.0) mg/dL AST 27 D (5-37) U/L ALT 26 (0-40) U/L Alkaline Phosphatase 113 (39-117) U/L Lactate Dehydrogenase 248 (118-273) U/L Total Protein 7.5 (6.5-8.0) g/dL Albumin 3.8 (3.5-5.0) g/dL 02/14/22 Range/Units 13:08 WBC (4.8-10.8) X10*3/uL RBC (4.60-5.80) X10*6/uL Hgb (14.0-18.0) g/dl Hct (42.0-52.0) % MCV (80.0-98.0) fL MCH (27.0-33.0) pg MCHC (31.0-36.0) g/dl RDW (11.0-16.0) % Plt Count (160-400) X10*3/uL MPV (9.4-12.4) fL Immature Gran % (Auto) (0.0-0.4) % Neut % (Auto) (45-73) % Lymph % (Auto) (20-40) % [place] % (Auto) (2-11) % Eos % (Auto) (0-4) % Baso % (Auto) (0-2) % Lymph # (Auto) (1.2-4.9) X10*3/uL [place] # (Auto) (0.1-1.2) X10*3/uL Eos # (Auto) (0.0-0.4) X10*3/uL Baso # (Auto) (0.0-0.2) X10*3/uL Abs Immat Gran (auto) (0.00-0.03) X10*3/uL Absolute Neuts (auto) (2.0-8.3) x10*3/uL Absolute Nucleated RBC (0.0-0.012) X10*3/uL Nucleated RBC % (auto) (0.0-0.2) /100WBC PT (10.0-13.1) SEC INR (0.9-1.1) Sodium (135-145) mmol/L Potassium (3.3-5.1) mmol/L Chloride (96-108) mmol/L Carbon Dioxide (22-29) mmol/L Anion Gap (12-20) BUN (9-16) mg/dL Creatinine (0.5-1.4) mg/dL Estim Creat Clear Calc Estimated GFR Fasting Glucose (60-99) mg/dL Lactic Acid 1.0 (0.5-2.0) mmol/L Calcium (8.4-10.2) mg/dL Total Bilirubin (0.0-1.0) mg/dL AST (5-37) U/L ALT (0-40) U/L Alkaline Phosphatase (39-117) U/L Lactate Dehydrogenase (118-273) U/L Total Protein (6.5-8.0) g/dL Albumin (3.5-5.0) g/dL Radiology Impression Discussion of test interpretation with radiology: I have reviewed the radiologist's reading. (No osteomyelitis) Chronic Conditions Patient?s care impacted by: Diabetes and Hypertension Patient not in DKA. Blood pressure stayed Discharge Plan Discharge Clinical Impression: Encounter for wound re-check Patient Disposition: Home, Self-Care Instructions: Wound Healing and Your Diet (ED) Additional Instructions: Actualmente, hood herida no parece estar infectada y no hay infecci?n en hood hueso. Hood an?lisis de michelle result? normal. Habl? con el cirujano vascular Dr. Kramer recomienda seguimiento ambulatorio por favor llame para hacer megan lynn. Regrese al servicio de urgencias por drenaje activo, mal olor, fiebre, escalofr?os, dolor, enrojecimiento, secreci?n de pus o cualquier otro s?ntoma preocupante. Prescriptions: No Action omeprazole 20 mg capsule,delayed release(DR/EC) 20 mg PO DAILY@0630 insulin asp prt-insulin aspart [Novolog Mix 70-30FlexPen U-100] 100 unit/mL (70-30) insulin pen 15 unit subcut DAILY@0900 sennosides [senna] 8.6 mg tablet 17.2 mg PO DAILY@0900 risperidone 2 mg tablet 2 mg PO DAILY@0900 insulin asp prt-insulin aspart [Novolog Mix 70-30FlexPen U-100] 100 unit/mL (70-30) insulin pen 17 unit subcut DAILY@2100 Cerovite Senior 0.4 mg-300 mcg- 250 mcg Tablet 1 tab PO DAILY pregabalin 100 mg capsule 100 mg PO BID ketoconazole 2 % Shampoo 1 appl TOPICAL Q7D oxycodone 5 mg Tablet 5 mg PO Q6H PRN (Reason: Pain, Moderate (Pain Scale 4-6) Qty: 20 0RF Rx Instructions: Partial Fill upon patient request. (DME) Ultra-Light Rollator Misc See Rx Instructions .Route Qty: 1 0RF Rx Instructions: As directed Genvoya [phone] mg tablet 1 tab PO DAILY pravastatin 40 mg tablet 40 mg PO BEDTIME lithium carbonate 300 mg tablet 900 mg PO DAILY propranolol 20 mg tablet 20 mg PO DAILY risperidone 3 mg tablet 6 mg PO BEDTIME benztropine 2 mg tablet 2 mg PO BID polyethylene glycol 3350 [Gavilax] 17 gram/dose powder 17 g PO DAILY tamsulosin 0.4 mg capsule 0.4 mg PO BEDTIME 90 Days Qty: 90 3RF finasteride 5 mg tablet 5 mg PO DAILY 90 Days Qty: 90 1RF Referrals: Hollis Kramer MD [Physician] - (Right s/p transmetatarsal wound evaluation) Interventions: ED Discharge Assessment Last Done: 02/14/22 18:47 Print Language: Senegalese
[2022-02-14 15:20] VITALS: BP 102/71; PULSE 78; RESP 14; TEMP 37.2; O2SAT 98
--- NOTE | 2022-02-14 16:19 | PC.NURSE ---
spoke with half-way RN and updated on plan ([phone])
[2022-02-14 16:33] VITALS: BP 106/64; PULSE 76; RESP 17; O2SAT 97
[2022-02-14 18:12] VITALS: BP 103/66; PULSE 78; RESP 18; O2SAT 98
--- NOTE | 2022-02-14 20:55 | PC.NURSE ---
Assumed care of pt. at 0. Pt. resting in bed at that time, pending ambulance ride back to facility. Ambulance arrived around 2044. IV removed and pt. loaded on ambulance for transport.
--- NOTE | 2022-02-22 15:13 | PC.NURSE ---
[facility] called for reprint of instructions d/t being in sami- educated that it cannot be changed be cause it was written out by the MD. instructed to f/u with written f/u md medina
== END 2022-02-14 20:57 | disposition home or self-care (01) ==
PROVIDERS: Physician Assistant; Emergency Provider Student in an Organized Health Care Education/Training Program; PCP Pediatrics
DX: Z48.01 Encounter for change or removal of surgical wound dressing (principal); Z89.431 Acquired absence of right foot; E11.9 Type 2 diabetes mellitus without complications; I10 Essential (primary) hypertension; B20 Human immunodeficiency virus [HIV] disease; F17.210 Nicotine dependence, cigarettes, uncomplicated; Z79.4 Long term (current) use of insulin; Z79.899 Other long term (current) drug therapy; Z79.02 Long term (current) use of antithrombotics/antiplatelets
CPT/HCPCS: 36415; 73620; 80053; 83605; 83615; 85025; 85610; 87040; 99283; 99284

== ENCOUNTER 2022-03-16 15:55 | Outpatient (REF) | payer MEDICAID, SELFPAY ==
[2022-03-16 16:00] LABS: MANUAL DIFF FLAG NO
[2022-03-16 16:08] LABS: Basophils Percent Auto 0.2 % (0-2); Eosinophils Absolute Auto 0.1 X10*3/uL (0.0-0.4); Eosinophils Percent Auto 2.1 % (0-4); Hematocrit 24.2 % (42.0-52.0); Hemoglobin 7.6 g/dl (14.0-18.0); Imm Gran Abs Auto 0.05 X10*3/uL (0.00-0.03); Imm Gran Pct Auto 0.8 % (0.0-0.4); Lymphocytes Percent Auto 15.3 % (20-40); Mean Corpuscular HGB Conc 31.4 g/dl (31.0-36.0); Mean Corpuscular Hemoglobin 28.7 pg (27.0-33.0); Mean Corpuscular Volume 91.3 fL (80.0-98.0); Mean Platelet Volume 11.8 fL (9.4-12.4); Monocytes Absolute Auto 0.6 X10*3/uL (0.1-1.2); Monocytes Percent Auto 9.1 % (2-11); Neutrophils Absolute Auto 4.8 x10*3/uL (2.0-8.3); Neutrophils Percent Auto 72.5 % (45-73); Platelet Count 127 X10*3/uL (160-400); Red Blood Count 2.65 X10*6/uL (4.60-5.80); Red Cell Distribution Width 15.9 % (11.0-16.0); White Blood Count 6.6 X10*3/uL (4.8-10.8)
== END 2022-03-16 15:56 | disposition home or self-care (01) ==
LOC: HO.HVNA 15:55
PROVIDERS: Visit Provider Pediatrics
DX: Z79.2 Long term (current) use of antibiotics (principal)
CPT/HCPCS: 36415; 85025

== ENCOUNTER → 2022-05-25 14:05 | Outpatient (BNVA) | payer MEDICAID, SELFPAY | PROVIDERS: PCP Pediatrics; Visit Provider Urology | DX: N32.0 Bladder-neck obstruction (principal); N41.9 Inflammatory disease of prostate, unspecified | CPT/HCPCS: 51798; 99212 ==

== ENCOUNTER 2022-08-26 08:27 | Outpatient (REF) | payer MEDICAID, SELFPAY ==
[2022-08-26 14:26] LABS: MANUAL DIFF FLAG NO
[2022-08-26 14:28] LABS: Appearance Urine Clear; Color Urine Yellow; Glucose Urine UA Negative (Negative); Leukocyte Esterase Urine Negative (Negative); Nitrite Urine Negative (Negative); PH 5.5 (5.0-9.0); Specific Gravity - Urine 1.015 (1.005-1.025); Urine Blood Negative (Negative); Urine Ketones Negative (Negative); Urine Protein Negative (Neg-Trace)
[2022-08-26 14:49] LABS: Basophils Percent Auto 0.5 % (0-2); Eosinophils Absolute Auto 0.1 X10*3/uL (0.0-0.4); Eosinophils Percent Auto 1.9 % (0-4); Hematocrit 39.8 % (42.0-52.0); Hemoglobin 13.3 g/dl (14.0-18.0); Imm Gran Abs Auto 0.01 X10*3/uL (0.00-0.03); Imm Gran Pct Auto 0.1 % (0.0-0.4); Lymphocytes Absolute Auto 1.4 X10*3/uL (1.2-4.9); Lymphocytes Percent Auto 18.2 % (20-40); Mean Corpuscular HGB Conc 33.4 g/dl (31.0-36.0); Mean Corpuscular Hemoglobin 30.1 pg (27.0-33.0); Mean Platelet Volume 12.5 fL (9.4-12.4); Monocytes Absolute Auto 0.7 X10*3/uL (0.1-1.2); Monocytes Percent Auto 8.8 % (2-11); Neutrophils Absolute Auto 5.3 x10*3/uL (2.0-8.3); Neutrophils Percent Auto 70.5 % (45-73); Platelet Count 144 X10*3/uL (160-400); Red Blood Count 4.42 X10*6/uL (4.60-5.80); Red Cell Distribution Width 12.3 % (11.0-16.0); White Blood Count 7.5 X10*3/uL (4.8-10.8)
[2022-08-26 15:57] LABS: Alanine Aminotransferase 40 U/L (0-40); Albumin Level 4.3 g/dL (3.5-5.0); Alkaline Phosphatase 83 U/L (39-117); Anion Gap 11 (12-20); Aspartate Amino Transferase 28 U/L (5-37); Bilirubin Total 0.4 mg/dL (0.0-1.0); Blood Urea Nitrogen 17 mg/dL (9-16); Calcium 10.1 mg/dL (8.4-10.2); Carbon Dioxide 27 mmol/L (22-29); Chloride 105 mmol/L (96-108); Cholesterol 213 mg/dL; Estimated Glomerular Filt Rate > 60; Glucose Fasting 116 mg/dL (60-99); HDL Cholesterol 32 mg/dL; Potassium 4.2 mmol/L (3.3-5.1); Sodium 140 mmol/L (135-145); Total Protein 7.4 g/dL (6.5-8.0); Triglycerides 431 mg/dL
[2022-08-27 13:43] LABS: HCV Log PCR <1.18 NOT DETECTED Log IU/mL (NOT DETECTED); HepC Viral Load <15 NOT DETECTED IU/mL (NOT DETECTED)
[2022-08-27 15:03] LABS: HIV RNA PCR Qn Copies NOT DETECTED copies/mL (NOT DETECTED); HIV RNA PCR Qn Log Copies NOT DETECTED (NOT DETECTED)
[2022-08-31 12:04] LABS: Absolute CD3 Count 941 cells/uL (840-3060); Absolute CD4 Count 276 cells/uL (490-1740); Absolute CD8 Count 672 cells/uL (180-1170); Absolute Lymphocytes 1092 cells/uL (850-3900); CD4 CD8 Ratio 0.41 (0.86-5.00); Percent CD3 Cells 86 % (57-85); Percent CD4 Cells 25 % (30-61); Percent CD8 Cells 62 % (12-42)
== END 2022-08-26 08:28 | disposition home or self-care (01) ==
LOC: CF 08:27
PROVIDERS: Visit Provider Internal Medicine
DX: B20 Human immunodeficiency virus [HIV] disease (principal)
CPT/HCPCS: 36415; 80053; 80061; 81003; 85025; 86359; 86360; 87522; 87536

== ENCOUNTER 2022-10-12 11:52 | Outpatient (REF) | payer MEDICAID, SELFPAY | END 2022-10-12 11:53 | disposition home or self-care (01) | LOC: HO.CHCLDS 11:52 | PROVIDERS: Visit Provider Internal Medicine | DX: Z13.89 Encounter for screening for other disorder (principal) ==

== ENCOUNTER 2022-11-23 11:16 | Outpatient (AMB) | payer MEDICAID, SELFPAY ==
--- NOTE | 2022-11-23 11:53 | A.OFFVIS_ITS ---
Intake Intake Visit Reasons: 6M PVR Intake Note: Patient is present today via telephone for PVR Urology Med: Finasteride, Tamsulosin Antibiotic Allergy: None Blood Thinner: None Client Experience Consultant Required: Yes Client Experience Consultant Language: Liberian Information Interpreted: non-clinical & clinical Accompanied by: Self / Same As Patient Allergies acetaminophen [From TYLENOL] Allergy (Unknown, Verified 05/25/22 14:19) UNKNOWN aspirin [ASA] Allergy (Unknown, Verified 05/25/22 14:19) AGITATION chlorpromazine [From Thorazine] Allergy (Verified 05/25/22 14:19) Unknown trazodone [TRAZODONE] Adverse Reaction (Unknown, Verified 05/25/22 14:19) HYPER Medication List - Last Reconciled 11/23/22 by Guillermo White MD benztropine 2 mg PO BID zarlyzy-clw-jgevk-tenof alafen [phone] mg (Genvoya) 1 tab PO DAILY finasteride 5 mg PO DAILY 90 days insulin asp prt-insulin aspart 100 unit/mL (70-30) (Novolog Mix 70-30FlexPen U- 100) 15 units subcut DAILY@0900 insulin asp prt-insulin aspart 100 unit/mL (70-30) (Novolog Mix 70-30FlexPen U- 100) 17 units subcut DAILY@2100 ketoconazole 2% 1 appl topical Q7D lithium carbonate 900 mg PO DAILY gxxpgvgo-bku-AB-lycopen-lutein 0.4 mg-300 mcg- 250 mcg (Cerovite Senior) 1 tab PO DAILY omeprazole 20 mg PO DAILY@0630 oxycodone 5 mg PO Q6H PRN polyethylene glycol 3350 (Gavilax) 17 grams PO DAILY pravastatin 40 mg PO BEDTIME pregabalin 100 mg PO BID propranolol 20 mg PO DAILY risperidone 2 mg PO DAILY@0900 risperidone 6 mg PO BEDTIME sennosides (senna) 17.2 mg PO DAILY@0900 tamsulosin 0.4 mg PO BEDTIME 90 days walker (Ultra-Light Rollator misc) As directed HPI HPI Comments History of Present Illness Details Leo is a pleasant Liberian-speaking male. He is a patient of . 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 [place] and HIV antiviral therapy. PSA 12/27 1.1 PFSH Medical History Diabetes Mood disorder Elevated C-reactive protein (CRP) Elevated erythrocyte sedimentation rate Enterococcal bacteremia Callus of foot Eschar of foot Diabetic foot ulcers Sepsis Osteomyelitis of left foot Open wnd foot-complicated HIV (human immunodeficiency virus infection) Hepatitis Chronic prostatitis Erectile dysfunction due to arterial insufficiency BPH w urinary obs/LUTS Urinary hesitancy Surgical History No pertinent past surgical history Family History Father No problems noted. Mother No problems noted. Social History Household Members: Other Household Members Other:: detention Housing: House Housing Other:: custodial Do you presently have visiting nurse or other home services: Yes Unable to assess alcohol history related to: Unknown Alcohol intake: never Patient Tobacco Use Status: Current everyday Tobacco user Tobacco use type: Cigarette Cigarette Packs Per Day: 1 Cigarettes Per Day: 20.0 Second Hand Smoke Exposure: Yes service: No Current occupational status: unemployed Review of Systems Const All systems reviewed & are unremarkable except as noted in HPI and below Reports no additional complaints Resp Reports no additional complaints GI Reports no additional complaints Reports as per HPI Musc Reports no additional complaints Physical Exam Telemedicine evaluation Appropriate responses Regular breathing rate and rhythm HEENT Head: Yes normal to inspection Ears: hearing grossly normal bilaterally Eyes General: appearance normal, both eyes and all related structures Neck Neck: Yes normal visual inspection Chest Chest palpation & inspection: normal inspection of the chest Resp Effort & Inspection: normal respiratory effort and able to speak in complete sentences Assessment & Plan Assessment & Plan (1) Bladder outlet obstruction: Code(s): N32.0 - Bladder-neck obstruction (2) Prostatitis: Code(s): N41.9 - Inflammatory disease of prostate, unspecified Qualifiers: Prostatitis type: chronic Qualified Code(s): N41.1 - Chronic prostatitis Plan 6m f/u Continue medications Medications: Refilled finasteride 5 mg PO DAILY 90 days 90 tabs 1RF N13.8 - Other obstructive and reflux uropathy, N40.1 - Benign prostatic hyperplasia with lower urinary tract symptoms, R33.9 - Retention of urine, unspecified Patient Instructions: Imaging studies, laboratory and physical exam results were discussed and reviewed in detail. No major barriers to patient understanding were identified. An opportunity to ask questions regarding the treatment plan was provided. All questions were answered. The patient expressed understanding and agreement with the above treatment plan. The patient is aware they should contact our office by phone for worsening of their current condition or the appearance of new urologic symptoms. Compliance is encouraged with any medications and followup testing that is ordered. It is a privilege to participate in the urologic care of your patient. If you have any questions or concerns regarding treatment for the above conditions, or other urologic issues, please do not hesitate to contact me. The office telephone contact is [phone]. This note is constructed using voice recognition software. While every effort has been made to ensure accuracy photovoltaic installation technician errors may have been included. Yours sincerely, Dr Guillermo White MD, [facility] - Urology Providers of Expert, Compassionate Care for the Genitourinary System Telehealth Telehealth Location of provider rendering services: practice address Location of patient: address on file Patient Identification confirmed using: Name, : Yes Telehealth method: voice only Patient verbally consented to treatment: Yes Patient verbally consented to billing insurance company: Yes Patient informed of any privacy concerns related to visit: Yes Coding Level of Care Code Tele Est Pt Level 3 (26760) Diagnoses Bladder outlet obstruction N32.0 Chronic prostatitis N41.1 Prostatitis type: chronic
== END 2022-11-23 14:21 | disposition home or self-care (01) ==
LOC: HO.HUSH 11:16
PROVIDERS: PCP Pediatrics; Visit Provider Urology
DX: N32.0 Bladder-neck obstruction (principal); N41.1 Chronic prostatitis
CPT/HCPCS: 99213

== ENCOUNTER → 2022-11-23 11:16 | Outpatient (BNVA) | payer MEDICAID, SELFPAY | PROVIDERS: PCP Pediatrics; Visit Provider Urology ==

== ENCOUNTER 2023-02-09 15:05 | Outpatient (REF) | payer MEDICAID, SELFPAY | END 2023-02-09 15:06 | disposition home or self-care (01) | LOC: HO.CHCLDS 15:05 | PROVIDERS: Visit Provider Internal Medicine | DX: B20 Human immunodeficiency virus [HIV] disease (principal) | CPT/HCPCS: 36415; 80053; 85025; 86359; 86360; 87536 ==

== ENCOUNTER 2023-08-11 10:00 | Outpatient (REF) | payer MEDICAID, SELFPAY ==
[2023-08-11 14:09] LABS: MANUAL DIFF FLAG NO
[2023-08-11 14:21] LABS: Basophils Percent Auto 0.3 % (0-2); Eosinophils Absolute Auto 0.2 X10*3/uL (0.0-0.4); Eosinophils Percent Auto 3.1 % (0-4); Hematocrit 38.1 % (42.0-52.0); Hemoglobin 13.3 g/dl (14.0-18.0); Imm Gran Abs Auto 0.03 X10*3/uL (0.00-0.03); Imm Gran Pct Auto 0.4 % (0.0-0.4); Lymphocytes Absolute Auto 1.1 X10*3/uL (1.2-4.9); Lymphocytes Percent Auto 15.6 % (20-40); Mean Corpuscular HGB Conc 34.9 g/dl (31.0-36.0); Mean Corpuscular Hemoglobin 31.7 pg (27.0-33.0); Mean Corpuscular Volume 90.9 fL (80.0-98.0); Mean Platelet Volume 11.9 fL (9.4-12.4); Monocytes Absolute Auto 0.4 X10*3/uL (0.1-1.2); Monocytes Percent Auto 6.3 % (2-11); Neutrophils Absolute Auto 5.1 x10*3/uL (2.0-8.3); Neutrophils Percent Auto 74.3 % (45-73); Platelet Count 134 X10*3/uL (160-400); Red Blood Count 4.19 X10*6/uL (4.60-5.80); Red Cell Distribution Width 11.8 % (11.0-16.0); White Blood Count 6.9 X10*3/uL (4.8-10.8)
[2023-08-11 14:42] LABS: Alanine Aminotransferase 73 U/L (0-40); Albumin Level 4.3 g/dL (3.5-5.0); Alkaline Phosphatase 89 U/L (39-117); Anion Gap 11 (12-20); Aspartate Amino Transferase 66 U/L (5-37); Bilirubin Direct 0.1 mg/dL (0.0-0.5); Bilirubin Total 0.3 mg/dL (0.0-1.0); Blood Urea Nitrogen 18 mg/dL (9-16); Carbon Dioxide 26 mmol/L (22-29); Chloride 106 mmol/L (96-108); Estimated Glomerular Filt Rate 46; Glucose Random 272 mg/dL (60-115); Potassium 5.1 mmol/L (3.3-5.1); Sodium 138 mmol/L (135-145); Total Protein 7.5 g/dL (6.5-8.0)
[2023-08-11 14:49] LABS: TSH reflex Free T4 0.95 uIU/mL (0.32-4.0)
[2023-08-12 04:50] LABS: HIV AB/AG Reactive (Nonreactive)
[2023-08-16 18:39] LABS: HIV 1 Antibody POSITIVE (NEGATIVE); HIV 2 Antibody NEGATIVE (NEGATIVE)
== END 2023-08-11 10:01 | disposition home or self-care (01) ==
LOC: HO.CHCLDS 10:00
PROVIDERS: Visit Provider Pediatrics
DX: E11.59 Type 2 diabetes mellitus with other circulatory complications (principal); Z79.4 Long term (current) use of insulin; B20 Human immunodeficiency virus [HIV] disease
CPT/HCPCS: 36415; 80048; 80076; 84443; 85025; 86701; 86702; 87389

== ENCOUNTER 2023-12-07 13:10 | Outpatient (REF) | payer MEDICAID, SELFPAY ==
[2023-12-07 14:25] LABS: MANUAL DIFF FLAG NO
[2023-12-07 14:30] LABS: Basophils Absolute Auto 0.1 X10*3/uL (0.0-0.2); Basophils Percent Auto 0.5 % (0-2); Eosinophils Absolute Auto 0.2 X10*3/uL (0.0-0.4); Eosinophils Percent Auto 1.8 % (0-4); Hematocrit 38.4 % (42.0-52.0); Hemoglobin 13.3 g/dl (14.0-18.0); Imm Gran Abs Auto 0.06 X10*3/uL (0.00-0.03); Imm Gran Pct Auto 0.6 % (0.0-0.4); Lymphocytes Absolute Auto 1.2 X10*3/uL (1.2-4.9); Lymphocytes Percent Auto 11.7 % (20-40); Mean Corpuscular HGB Conc 34.6 g/dl (31.0-36.0); Mean Corpuscular Hemoglobin 31.6 pg (27.0-33.0); Mean Corpuscular Volume 91.2 fL (80.0-98.0); Mean Platelet Volume 11.8 fL (9.4-12.4); Monocytes Absolute Auto 0.7 X10*3/uL (0.1-1.2); Monocytes Percent Auto 6.6 % (2-11); Neutrophils Absolute Auto 7.9 x10*3/uL (2.0-8.3); Neutrophils Percent Auto 78.8 % (45-73); Platelet Count 159 X10*3/uL (160-400); Red Blood Count 4.21 X10*6/uL (4.60-5.80); Red Cell Distribution Width 11.7 % (11.0-16.0)
[2023-12-07 14:50] LABS: Alanine Aminotransferase 48 U/L (0-40); Albumin Level 4.6 g/dL (3.5-5.0); Alkaline Phosphatase 98 U/L (39-117); Anion Gap 13 (12-20); Aspartate Amino Transferase 29 U/L (5-37); Bilirubin Total 0.4 mg/dL (0.0-1.0); Blood Urea Nitrogen 18 mg/dL (9-16); Calcium 11.1 mg/dL (8.4-10.2); Carbon Dioxide 27 mmol/L (22-29); Chloride 104 mmol/L (96-108); Cholesterol 171 mg/dL (<200); Estimated Glomerular Filt Rate > 60; Glucose Random 113 mg/dL (60-115); HDL Cholesterol 33 mg/dL (>40); LDL Cholesterol Calculated 85 mg/dL (<100); Sodium 140 mmol/L (135-145); Triglycerides 269 mg/dL (<150)
[2023-12-07 16:01] LABS: Reflex LDLD? No
[2023-12-07 18:42] LABS: CT PCR NOT DETECTED (Not Detect.); NG PCR NOT DETECTED (Not Detect.)
[2023-12-08 08:02] LABS: Syphilis Screen Nonreactive (Nonreactive)
[2023-12-08 08:12] LABS: Hepatitis A Antibody IgG REACTIVE (Nonreactive); ~Hepatitis A Antibody IgG 7.74 S/CO (0.00-0.99)
[2023-12-08 08:33] LABS: HBS Num1 3.01 mIU/mL (0-7.99); HBc Num1 6.67 S/CO (0.00-0.79); HBsAGNum1 0.23 S/CO (0.00-0.99); Hepatitis B Surface Antigen Negative (Negative); ~Hepatitis B Surface Antibody NONREACTIVE (Nonreactive); ~Hepatitis C Antibody Reactive (Nonreactive)
[2023-12-08 09:13] LABS: HBc Num2 6.82 S/CO; HBc Num3 6.61 S/CO
[2023-12-08 09:14] LABS: Hepatitis B Core Antibody Reactive (Nonreactive)
[2023-12-08 13:58] LABS: HIV RNA PCR Qn Copies NOT DETECTED copies/mL (NOT DETECTED); HIV RNA PCR Qn Log Copies NOT DETECTED (NOT DETECTED)
[2023-12-09 17:08] LABS: Hepatitis B Core Antibody IgM NON-REACTIVE (NON-REACTIVE)
[2023-12-09 22:43] LABS: TS Negative Control Passed; TS Panel A 0; TS Panel B 1; TS Positive Control Passed; TSpotTB Negative (Negative)
[2023-12-12 10:58] LABS: HCV Log PCR <1.18 NOT DETECTED Log IU/mL (NOT DETECTED); HepC Viral Load <15 NOT DETECTED IU/mL (NOT DETECTED)
[2023-12-13 16:43] LABS: Absolute CD3 Count 1064 cells/uL (840-3060); Absolute CD4 Count 322 cells/uL (490-1740); Absolute CD8 Count 729 cells/uL (180-1170); Absolute Lymphocytes 1266 cells/uL (850-3900); CD4 CD8 Ratio 0.44 (0.86-5.00); Percent CD3 Cells 84 % (57-85); Percent CD4 Cells 25 % (30-61); Percent CD8 Cells 58 % (12-42)
== END 2023-12-07 13:11 | disposition home or self-care (01) ==
LOC: HO.CHCLDS 13:10
PROVIDERS: Visit Provider Internal Medicine
DX: B20 Human immunodeficiency virus [HIV] disease (principal)
CPT/HCPCS: 36415; 80053; 80061; 85025; 86359; 86360; 86481; 86704; 86705; 86706; 86708; 86780; 86803; 87340; 87491; 87522; 87536; 87591

== ENCOUNTER 2024-02-07 23:04 | Inpatient (IN) | payer MEDICAID, SELFPAY ==
--- NOTE | 2024-02-07 | ECG_ITS ---
Test Reason : SOB Blood Pressure : / mmHG Vent. Rate : 092 BPM Atrial Rate : 092 BPM P-R Int : 146 ms QRS Dur : 130 ms QT Int : 404 ms P-R-T Axes : 074 000 052 degrees QTc Int : 499 ms Normal sinus rhythm Right bundle branch block Abnormal ECG When compared with ECG of 11-OCT-2021 20:38, Previous ECG has undetermined rhythm, needs review Right bundle branch block is now Present Referred By: Generic ED Physician Electronically Signed By:NADJA FRANCISCO MD
--- NOTE | ~2024-02-07 | XR_ITS ---
CLINICAL HISTORY: Fever 1 view chest x-ray. Comparison: CR/SR - XR CHEST 1V - 12/31/21 21:36 EST Findings: Small ill-defined right basilar opacity present at the site of overlapping ribs. No focal consolidation identified within the left lung. No pneumothorax or pleural effusion. Heart size normal. Impression: 1. Small ill-defined right basilar opacity. This may represent artifact related to overlapping bones or a small focus of infiltrate/atelectasis. This document has been electronically signed by: Arun De La Torre MD on 02/08/2024 02:14:40
[2024-02-07 23:32] VITALS: BP 132/73; PULSE 99; RESP 18; TEMP 36.7; O2SAT 92; BMI 22.1
[2024-02-08] VITALS (14 sets, daily range): BP systolic 113–152; BP diastolic 61–88; PULSE 77–100; RESP 16–43; TEMP 36.6–38; O2SAT 92–96; BMI 22.1
[2024-02-08 00:03] LABS: MANUAL DIFF FLAG NO
[2024-02-08 00:06] LABS: Basophils Percent Auto 0.3 % (0-2); Eosinophils Absolute Auto 0.3 X10*3/uL (0.0-0.4); Eosinophils Percent Auto 2.1 % (0-4); Hemoglobin 13.7 g/dl (14.0-18.0); Imm Gran Abs Auto 0.06 X10*3/uL (0.00-0.03); Imm Gran Pct Auto 0.5 % (0.0-0.4); Lymphocytes Absolute Auto 0.8 X10*3/uL (1.2-4.9); Lymphocytes Percent Auto 6.5 % (20-40); Mean Corpuscular HGB Conc 35.1 g/dl (31.0-36.0); Mean Corpuscular Hemoglobin 31.9 pg (27.0-33.0); Mean Corpuscular Volume 90.7 fL (80.0-98.0); Mean Platelet Volume 11.2 fL (9.4-12.4); Monocytes Percent Auto 8.1 % (2-11); Neutrophils Absolute Auto 10.2 x10*3/uL (2.0-8.3); Neutrophils Percent Auto 82.5 % (45-73); Platelet Count 126 X10*3/uL (160-400); White Blood Count 12.4 X10*3/uL (4.8-10.8)
[2024-02-08 00:21] LABS: Troponin-I High Sensitivity 7.3 ng/L (<3.5-35.0)
[2024-02-08 00:38] LABS: Alanine Aminotransferase 60 U/L (0-40); Albumin Level 4.5 g/dL (3.5-5.0); Alkaline Phosphatase 94 U/L (39-117); Anion Gap 12 (12-20); Aspartate Amino Transferase 29 U/L (5-37); Bilirubin Total 0.4 mg/dL (0.0-1.0); Blood Urea Nitrogen 16 mg/dL (9-16); Calcium 9.8 mg/dL (8.4-10.2); Carbon Dioxide 25 mmol/L (22-29); Chloride 108 mmol/L (96-108); Creatinine Clr Calc Pharmacy 69.2; Estimated Glomerular Filt Rate > 60; Glucose Random 107 mg/dL (60-115); Potassium 3.9 mmol/L (3.3-5.1); Sodium 141 mmol/L (135-145); Total Protein 7.6 g/dL (6.5-8.0)
--- NOTE | 2024-02-08 01:05 | ED.URI ---
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 Ghosh HPI Narrative: 58-year-old male with pertinent history of DM, chronic osteomyelitis, s/p right BKA, HIV, hepatitis, BPH patient came in today for evaluation of cough with yellow sputum, subjective fever and chills, and difficulty breathing. No dysuria, no frequency urination, no hematuria, no abdominal pain, no nausea, no vomiting, no diarrhea. Related Data Home Medications ?Medication ?Instructions ?Recorded ?Confirmed benztropine 2 mg tablet 2 mg PO BID 02/16/21 11/23/22 elviteg 150 mg-cob 150 mg-emtricit 1 tab PO DAILY 02/16/21 11/23/22 200 mg-tenofo alafenam 10 mg tablet (Genvoya) lithium carbonate 300 mg tablet 900 mg PO DAILY 02/16/21 11/23/22 pravastatin 40 mg tablet 40 mg PO BEDTIME 02/16/21 11/23/22 propranolol 20 mg tablet 20 mg PO DAILY 02/16/21 11/23/22 risperidone 3 mg tablet 6 mg PO BEDTIME 02/16/21 11/23/22 insulin aspar prot-insulin aspart 15 unit subcut DAILY@0900 03/05/21 11/23/22 100 unit/mL (70-30) subcutaneous pen (Novolog Mix 70-30FlexPen U-100) omeprazole 20 mg capsule,delayed 20 mg PO DAILY@0630 03/05/21 11/23/22 release zoggyqzf-ygv-wjajz acid 0.4 1 tab PO DAILY 07/27/21 11/23/22 mg-lycopene 300 mcg-lutein 250 mcg tablet (Cerovite Senior) pregabalin 100 mg capsule 100 mg PO BID 07/27/21 11/23/22 polyethylene glycol 3350 17 17 g PO DAILY 09/02/21 11/23/22 gram/dose oral powder (Gavilax) ketoconazole 2 % shampoo 1 appl topical Q7D 10/12/21 11/23/22 insulin aspar prot-insulin aspart 17 unit subcut DAILY@2100 01/01/22 11/23/22 100 unit/mL (70-30) subcutaneous pen (Novolog Mix 70-30FlexPen U-100) risperidone 2 mg tablet 2 mg PO DAILY@0900 01/01/22 11/23/22 sennosides 8.6 mg tablet (senna) 17.2 mg PO DAILY@0900 01/01/22 11/23/22 Previous Rx's ?Medication ?Instructions ?Recorded oxycodone 5 mg tablet 5 mg PO Q6H PRN Pain, Moderate 01/24/22 (Pain Scale 4-6 #20 tabs walker (Ultra-Light Rollator misc) #1 ea 01/24/22 tamsulosin 0.4 mg capsule 0.4 mg PO BEDTIME 90 days #90 caps 11/15/22 finasteride 5 mg tablet 5 mg PO DAILY 90 days #90 tabs 11/23/22 finasteride 5 mg tablet 5 mg PO DAILY #90 tabs 02/06/24 Allergies Allergy/AdvReac Type Severity Reaction Status Date / Time acetaminophen [From TYLENOL] Allergy Unknown UNKNOWN Verified 02/07/24 23:47 aspirin [ASA] Allergy Unknown AGITATION Verified 02/07/24 23:47 chlorpromazine Allergy Unknown Verified 02/07/24 23:47 [From Thorazine] clonazepam [From Klonopin] Allergy Rash Verified 02/07/24 23:47 trazodone [TRAZODONE] AdvReac Unknown HYPER Verified 02/07/24 23:47 Review of Systems Review of Systems: All other systems are reviewed and are negative Constitutional: Reports as per HPI and Reports no additional constitutional complaints Eyes: Reports as per HPI and Reports no additional eye complaints Reports system reviewed and no additional complaints, except as documented Cardiovascular: Reports as per HPI and Reports no additional cardiovascular complaints Respiratory: Reports as per HPI and Reports no additional respiratory complaints Gastrointestinal: Reports as per HPI and Reports no additional gastrointestinal complaints Genitourinary: Reports no additional female genitourinary complaints Musculoskeletal: Reports no additional musculoskeletal complaints Skin/Breast: Reports system reviewed and no additional complaints, except as docu Psychiatric: Reports no additional psychiatric complaints Endocrine: Reports no additional endocrine complaints Hematologic/Lymphatic: Reports no additional hematologic/lymphatic complaints Allergic/Immunologic: Reports no additional allergic/immunologic complaints Reports system reviewed and no additional complaints, except as documented and Reports Abnormal speech present [facility] Past Medical History Medical History Diabetes Mood disorder Elevated C-reactive protein (CRP) Elevated erythrocyte sedimentation rate Enterococcal bacteremia Callus of foot Eschar of foot Diabetic foot ulcers Sepsis Osteomyelitis of left foot Open wnd foot-complicated HIV (human immunodeficiency virus infection) Hepatitis Chronic prostatitis Erectile dysfunction due to arterial insufficiency BPH w urinary obs/LUTS Urinary hesitancy Surgical History No pertinent past surgical history Family History Family History Father No problems noted. Mother No problems noted. Social History Social History Household Members: Other Household Members Other:: skilled nursing Housing: House Housing Other:: custodial Do you presently have visiting nurse or other home services: Yes Unable to assess alcohol history related to: Unknown Alcohol intake: never Comment: pt refused bed alarm, discussed about the ring the dawkins. Patient Tobacco Use Status: Current everyday Tobacco user Tobacco use type: Cigarette Cigarette Packs Per Day: 1 Cigarettes Per Day: 20.0 Second Hand Smoke Exposure: Yes Advance Directives: No Advance Directives Information Provided: Yes service: No Current occupational status: unemployed Physical Exam Vital Signs: Vital Signs: Last Vital Signs Temp 100.3 F 02/08/24 01:50 Pulse 100 02/08/24 01:50 Resp 43 H 02/08/24 01:50 BP 113/88 02/08/24 01:50 Pulse Ox 92 02/08/24 01:50 O2 Del Method Room Air 02/08/24 01:50 BMI result Body Mass Index 22.1 Vital signs have been reviewed and appear to be correct. Blood pressure elevated. Heart rate normal. Respiratory rate normal. Febrile. Oxygen saturation normal. Appearance: Alert. Oriented X3. No acute distress. Head: Normal external exam. Normocephalic. Atraumatic. No Ferris signs noted. No raccoon eyes noted Eyes: PERRLA. EOMI. Conjunctiva and sclera normal. Eyelids normal. ENT: TM's Normal. Pharynx normal. Uvula midline. Moist mucous membranes. No trismus noted. No drooling noted. No muffled voice noted. Neck: Normal inspection. Neck supple. FROM. No adenopathy. Thyroid Normal. No meningeal signs. No neck mass noted. CVS: Normal heart rate and rhythm. Heart sound normal. No murmurs noted. Pulses normal throughout. Respiratory: No respiratory distress. Painless inspiration. Breath sounds normal. No wheezes/rales/rhonchi noted. Chest nontender. No accessory muscle usage noted or decreased air movement noted. Abdomen: Soft and nontender. Bowel sounds normal in all 4 quadrants. No distention noted. No organomegaly noted. No visible injury noted. Back: No CVA tenderness. Full range of motion noted. Skin: Skin warm and dry. Normal skin color. Normal skin turgor. No rashes/lesions/lacerations noted. Extremities: No lower extremity edema. Extremities exhibit normal range of motion. Extremities nontender. Neuro: Oriented X 3. Cranial nerve exam: II-XII are grossly intact No motor deficit. No sensory deficit. Reflexes normal. Course Reevaluation(s) Reevaluation #1: 58-year-old male with pneumonia and SIRS will start on ceftriaxone and doxycycline. Admit. Time: 02:48 Medications Administered Discontinued Medications Generic Name Dose Route Start Last Admin Trade Name Freq PRN Reason Stop Dose Admin Ceftriaxone Sodium 1 gm 02/08/24 01:05 02/08/24 01:20 Ceftriaxone Sodium 1 Gm Vial IVPUSH 02/08/24 01:06 1 gm ONCE ONE Administration Sodium Chloride 1,000 mls @ 999 mls/hr 02/08/24 01:05 02/08/24 01:20 Ns IV 02/08/24 02:05 999 mls/hr .Q1H1M ONE Administration Ketorolac Tromethamine 30 mg 02/08/24 01:20 02/08/24 01:37 Ketorolac Tromethamine 30 Mg/Ml Vial IVPUSH 02/08/24 01:21 30 mg ONCE ONE Administration Medical Decision Making Differential Diagnosis Differential Diagnoses: The differential diagnosis associated with the presentation includes (Pneumonia, pneumothorax, pleural effusion, sepsis, electrolyte derangement, severe anemia.) Admission/Observation Consideration of admission/observation: Escalation of care including admission/observation considered Consult Healthcare Provider Management of the patient was discussed with: Hospitalist (Dr. Isaacs) Lab Data MDM Lab Attestation statement: I reviewed the patient's lab results. 02/07/24 23:56 02/07/24 23:56 Labs: Lab Results 02/07/24 02/08/24 02/08/24 Range/Units 23:56 00:55 01:15 WBC 12.4 H (4.8-10.8) X10*3/uL RBC 4.30 L (4.60-5.80) X10*6/uL Hgb 13.7 L (14.0-18.0) g/dl Hct 39.0 L (42.0-52.0) % MCV 90.7 (80.0-98.0) fL MCH 31.9 (27.0-33.0) pg MCHC 35.1 (31.0-36.0) g/dl RDW 12.0 (11.0-16.0) % Plt Count 126 L (160-400) X10*3/uL MPV 11.2 (9.4-12.4) fL Immature Gran % (Auto) 0.5 H (0.0-0.4) % Neut % (Auto) 82.5 H (45-73) % Lymph % (Auto) 6.5 L (20-40) % Dawes % (Auto) 8.1 (2-11) % Eos % (Auto) 2.1 (0-4) % Baso % (Auto) 0.3 (0-2) % Lymph # (Auto) 0.8 L (1.2-4.9) X10*3/uL Dawes # (Auto) 1.0 (0.1-1.2) X10*3/uL Eos # (Auto) 0.3 (0.0-0.4) X10*3/uL Baso # (Auto) 0.0 (0.0-0.2) X10*3/uL Abs Immat Gran (auto) 0.06 H (0.00-0.03) X10*3/uL Absolute Neuts (auto) 10.2 H (2.0-8.3) x10*3/uL Absolute Nucleated RBC 0.000 (0.0-0.012) X10*3/uL Nucleated RBC % (auto) 0.0 (0.0-0.2) /100WBC Sodium 141 (135-145) mmol/L Potassium 3.9 (3.3-5.1) mmol/L Chloride 108 (96-108) mmol/L Carbon Dioxide 25 (22-29) mmol/L Anion Gap 12 (12-20) BUN 16 (9-16) mg/dL Creatinine 1.07 (0.5-1.4) mg/dL Estim Creat Clear Calc 69.2 Estimated GFR > 60 Random Glucose 107 (60-115) mg/dL Lactic Acid 0.9 (0.5-2.0) mmol/L Calcium 9.8 D (8.4-10.2) mg/dL Total Bilirubin 0.4 (0.0-1.0) mg/dL AST 29 (5-37) U/L ALT 60 H (0-40) U/L Alkaline Phosphatase 94 (39-117) U/L Troponin I High Sens 7.3 (<3.5-35.0) ng/L Total Protein 7.6 (6.5-8.0) g/dL Albumin 4.5 (3.5-5.0) g/dL Influenza Type A (PCR) NEGATIVE (Negative) Influenza Type B (PCR) NEGATIVE (Negative) RSV RNA Qual (PCR) NEGATIVE (Negative) SARS-CoV-2 RNA (RT-PCR) NEGATIVE (Negative) Independent Interpretation I performed an independent interpretation of an: Plain X-Ray (Chest:1. Small ill-defined right basilar opacity. This may represent artifact related to overlapping bones or a small focus of infiltrate/atelectasis.) Radiology Impression Discussion of test interpretation with radiology: I have reviewed the radiologist's reading. Discharge Plan Discharge Clinical Impression: Pneumonia, Sepsis Patient Disposition: Admitted As Inpatient Print Language: Gabonese
[2024-02-08] MEDS: cefTRIAXone sodium 1 GM VIAL IVPUSH ×2 (01:20→20:33)
[2024-02-08] MEDS: 0.9 % Sodium Chloride 1,000 ML 999 ML IV (01:20)
[2024-02-08 01:36] LABS: Lactic Acid 0.9 mmol/L (0.5-2.0)
[2024-02-08 01:36] LABS: Influenza A PCR NEGATIVE (Negative); Influenza B PCR NEGATIVE (Negative); Resp Syncy Virus RNA Qual PCR NEGATIVE (Negative); SARS COV2 PCR INHOUSE NEGATIVE (Negative)
[2024-02-08] MEDS: Ketorolac Tromethamine 30 MG/ML VIAL IVPUSH (01:37)
[2024-02-08] MEDS: Doxycycline Hyclate 100 MG in 0.9 % Sodium Chloride 250 ML 166.67 MG IV (02:55)
--- NOTE | 2024-02-08 06:10 | P.HPHOSP_ITS ---
History of Present Illness Date of Service: 02/08/24 Attending physician on admission: Laurel Isaacs Chief Complaint: Cough, SOB Patient is a 58-year-old male with a past medical history significant for insulin-dependent diabetes, chronic osteomyelitis as post right BKA HIV, hepatitis and BPH, who presented to the ED today with productive cough with yellow sputum, fever, chills and dyspnea x3 days. He denies any recent sick contacts. Does have chest pain with lying down that he describes as a tightness with mild wheeze. He has also has a history of smoking 1 pack a day for many years. He denies any urinary symptoms or abdominal pain. No lower extremity edema. Review of Systems 2 Constitutional: Constitutional: Reports chills, Reports fatigue, Reports fever(s) and Denies headache(s) Eyes: Eyes: Denies change in vision ENT: Denies headache(s), Denies nasal congestion, Denies nasal discharge, Denies neck pain and Denies sore throat Cardiovascular: Cardiovascular: Reports chest pain, Reports chest pain at rest, Denies rapid heart rate, Denies leg edema and Reports dyspnea Respiratory: Respiratory: Reports chest congestion, Reports cough, Reports dyspnea and Reports wheezing Gastrointestinal: Gastrointestinal: Denies diarrhea, Denies nausea and Denies vomiting Genitourinary: Genitourinary: Denies dysuria and Denies urinary urgency Musculoskeletal: Musculoskeletal: Denies neck pain Integumentary/Breasts: Skin/Breast: Denies rash Neurologic: Denies confusion and Denies headache(s) Psychiatric: Psychiatric: Denies confusion Endocrine: Endocrine: Reports fatigue Hematologic/Lymphatic: Hematologic/Lymphatic: Denies easy bleeding and Denies easy bruising Allergic/Immunologic: Allergic/Immunologic: Reports wheezing PMFSH Medical History Diabetes Mood disorder Elevated C-reactive protein (CRP) Elevated erythrocyte sedimentation rate Enterococcal bacteremia Callus of foot Eschar of foot Diabetic foot ulcers Sepsis Osteomyelitis of left foot Open wnd foot-complicated HIV (human immunodeficiency virus infection) Hepatitis Chronic prostatitis Erectile dysfunction due to arterial insufficiency BPH w urinary obs/LUTS Urinary hesitancy Functional capacity: independent ambulation Family History Father No problems noted. Mother No problems noted. Surgical History No pertinent past surgical history Social History Household Members: Other Household Members Other:: fpc Housing: House Housing Other:: long term Do you presently have visiting nurse or other home services: Yes Unable to assess alcohol history related to: Refusing to respond Alcohol intake: never Comment: pt refused bed alarm, discussed about the ring the dawkins. Patient Tobacco Use Status: Current everyday Tobacco user Tobacco use type: Cigarette Cigarette Packs Per Day: 1 Cigarettes Per Day: 20.0 Smoked in Last 30 Days: Yes Second Hand Smoke Exposure: Yes Use of substances other than those prescribed or required for medical reasons: No Advance Directives: No Advance Directives Information Provided: Yes service: No Current occupational status: unemployed Narrative: Smokes 1 pack per day, no alcohol or drug use Meds Allergies Allergy/AdvReac Type Severity Reaction Status Date / Time acetaminophen [From TYLENOL] Allergy Unknown UNKNOWN Verified 02/07/24 23:47 aspirin [ASA] Allergy Unknown AGITATION Verified 02/07/24 23:47 chlorpromazine Allergy Unknown Verified 02/07/24 23:47 [From Thorazine] clonazepam [From Klonopin] Allergy Rash Verified 02/07/24 23:47 trazodone [TRAZODONE] AdvReac Unknown HYPER Verified 02/07/24 23:47 Active Medications: Current Medications Acetaminophen (Acetaminophen 325 Mg Tablet) 650 mg PO Q6H PRN PRN Reason: Pain, Mild 1-3,fever,headache Benzonatate (Benzonatate 100 Mg Capsule) 100 mg PO TID PRN PRN Reason: Cough Calcium Carbonate (Calcium Carbonate 750 Mg Tab.Chew) 750 mg PO Q4H PRN PRN Reason: Heartburn Ceftriaxone Sodium (Ceftriaxone Sodium 1 Gm Vial) 1 gm IVPUSH Q24H BRANDON Enoxaparin Sodium (Enoxaparin Sodium 40 Mg/0.4 Ml Syringe) 40 mg SUBCUT Q24H BRANDON Glucose (Glucose Gel 15 Gm Gel..Gram.) 15 gm PO Q15M PRN; Protocol PRN Reason: per Hypoglycemia Standing Ord. Azithromycin 500 mg/ Sodium (Chloride) 250 mls @ 125 mls/hr IV Q24H BRANDON Dextrose (D10) 250 mls @ 750 mls/hr IV Q15M PRN; Protocol PRN Reason: per Hypoglycemia Standing Ord. Insulin Human Lispro (Insulin Lispro 100 Unit/Ml 3 Ml Vial) 0 unit SUBCUT [facility]; Protocol Magnesium Hydroxide (Milk Of Magnesia 30 Ml Oral.Susp) 30 ml PO DAILY PRN PRN Reason: Constipation Melatonin (Melatonin 3 Mg Tablet) 6 mg PO BEDTIME PRN PRN Reason: Insomnia Ondansetron HCl (Ondansetron Hcl 4 Mg/2 Ml Vial) 4 mg IVPUSH Q8H PRN PRN Reason: Nausea and Vomiting Sodium Chloride (0.9 % Sodium Chloride Flush 3 Ml Syringe) 3 ml IVFLUSH [facility] Home Medications ?Medication ?Instructions ?Recorded ?Confirmed ?Last Taken ?Type benztropine 2 mg tablet 2 mg PO BID 02/16/21 11/23/22 Unknown History elviteg 150 mg-cob 150 mg-emtricit 1 tab PO DAILY 02/16/21 11/23/22 Unknown History 200 mg-tenofo alafenam 10 mg tablet (Genvoya) lithium carbonate 300 mg tablet 900 mg PO DAILY 02/16/21 11/23/22 Unknown History pravastatin 40 mg tablet 40 mg PO BEDTIME 02/16/21 11/23/22 Unknown History propranolol 20 mg tablet 20 mg PO DAILY 02/16/21 11/23/22 Unknown History risperidone 3 mg tablet 6 mg PO BEDTIME 02/16/21 11/23/22 Unknown History insulin aspar prot-insulin aspart 15 unit subcut DAILY@0900 03/05/21 11/23/22 Unknown History 100 unit/mL (70-30) subcutaneous pen (Novolog Mix 70-30FlexPen U-100) omeprazole 20 mg capsule,delayed 20 mg PO DAILY@0630 03/05/21 11/23/22 Unknown History release sgddseoz-fzo-kfupy acid 0.4 1 tab PO DAILY 07/27/21 11/23/22 Unknown History mg-lycopene 300 mcg-lutein 250 mcg tablet (Cerovite Senior) pregabalin 100 mg capsule 100 mg PO BID 07/27/21 11/23/22 Unknown History polyethylene glycol 3350 17 17 g PO DAILY 09/02/21 11/23/22 Unknown History gram/dose oral powder (Gavilax) ketoconazole 2 % shampoo 1 appl topical Q7D 10/12/21 11/23/22 Unknown History insulin aspar prot-insulin aspart 17 unit subcut DAILY@2100 01/01/22 11/23/22 Unknown History 100 unit/mL (70-30) subcutaneous pen (Novolog Mix 70-30FlexPen U-100) risperidone 2 mg tablet 2 mg PO DAILY@0900 01/01/22 11/23/22 Unknown History sennosides 8.6 mg tablet (senna) 17.2 mg PO DAILY@0901/01/22 11/23/22 Unknown History Physical Exam 2 Vital Signs and Narrative: Vital Signs: Last Vital Signs Temp 100.3 F 02/08/24 02:30 Pulse 87 02/08/24 03:06 Resp 22 H 02/08/24 03:06 BP 135/75 02/08/24 03:21 Pulse Ox 93 02/08/24 03:06 O2 Del Method Room Air 02/08/24 03:06 BMI result Body Mass Index 22.1 General: AOx3, appears uncomfortable, no significant respiratory distress, seen with production cook Resp: Crackles bilateral lower lungs, mild wheezing in upper [place] CVS: Tachycardic, normal rhythm GI: +BS, NT, no distention Skin: Warm, dry Neuro: Cranial nerves II-XII grossly intact bilaterally. Motor grossly intact bilaterally Extremities: No LE edema, s/p R BKA Psych: Appropriate affect Const: General: No confusion Orientation/consciousness: No confusion Neuro: General: No confusion Results Labs 02/07/24 23:56 02/07/24 23:56 Labs: Laboratory Results - last 24 hr 02/07/24 02/08/24 02/08/24 23:56 00:55 01:15 MCV 90.7 MCH 31.9 MCHC 35.1 RDW 12.0 Plt Count 126 L MPV 11.2 Immature Gran % (Auto) 0.5 H Neut % (Auto) 82.5 H Lymph % (Auto) 6.5 L Hendricks % (Auto) 8.1 Eos % (Auto) 2.1 Baso % (Auto) 0.3 Lymph # (Auto) 0.8 L Hendricks # (Auto) 1.0 Eos # (Auto) 0.3 Baso # (Auto) 0.0 Abs Immat Gran (auto) 0.06 H Absolute Neuts (auto) 10.2 H Absolute Nucleated RBC 0.000 Nucleated RBC % (auto) 0.0 Anion Gap 12 Estim Creat Clear Calc 69.2 Estimated GFR > 60 Random Glucose 107 Lactic Acid 0.9 Calcium 9.8 D Total Bilirubin 0.4 AST 29 ALT 60 H Alkaline Phosphatase 94 Troponin I High Sens 7.3 Total Protein 7.6 Albumin 4.5 Influenza Type A (PCR) NEGATIVE Influenza Type B (PCR) NEGATIVE RSV RNA Qual (PCR) NEGATIVE SARS-CoV-2 RNA (RT-PCR) NEGATIVE Assessment and Plan (1) Sepsis: Status: Acute (2) Pneumonia: Status: Acute (3) Tobacco use disorder: Status: Acute Plan Patient is a 58-year-old male with a past medical history significant for insulin-dependent diabetes, chronic osteomyelitis as post right BKA HIV, hepatitis and BPH, who presented to the ED today with productive cough with yellow sputum, fever, chills and dyspnea x3 days. Sepsis secondary to pneumonia - WBC 12.4, lactic acid normal, mild tachycardia and tachypnea, blood cultures x2 pending, not severe sepsis - EKG with normal sinus rhythm, right bundle-branch block, troponin normal - chest x-ray with small ill-defined right basilar opacity, artifact versus infiltrate/atelectasis - COVID/flu/RSV negative - started on ceftriaxone and doxycycline in ED, continue ceftriaxone add azithromycin - monitor CBC and BMP Insulin-dependent diabetes - diabetic diet - sliding scale insulin - patient unclear regarding long-acting insulin dosing, can continue once med rec complete HIV - continue home meds once med rec done Tobacco use disorder - smoking cessation discussed - declined nicotine patch Full code VTE prophylaxis: Lovenox Patient with sepsis secondary to pneumonia requiring admission for at least 2 midnights stay for IV antibiotics. Quality Stroke Does the patient have a stroke diagnosis?: No VTE Prior VTE?: No VTE Risk Level:: Medical - moderate - high VTE Device Contraindication: Treatment Not Indicated VTE Drug Contraindication: N/A - Med Ordered
[2024-02-08] MEDS: Azithromycin 500 MG in 0.9 % Sodium Chloride 250 ML 125 MG IV (06:31)
[2024-02-08] MEDS: Enoxaparin Sodium 40 MG/0.4 ML SYRINGE SUBCUT (06:31)
[2024-02-08 08:11] LABS: Glucose, Whole Blood 215 mg/dL (60-115)
[2024-02-08] MEDS: Insulin Lispro 100 UNIT/ML 3 ML VIAL SUBCUT (08:11)
--- NOTE | 2024-02-08 09:44 | MHC.CM.PN ---
CM met with Patient at bedside, in the ED, with the assist of a [facility] Sales Activity Manager. Patient lives in a house with his Sister/HCP/[employer]/Iliana and Iliana's adult children and he uses a cane and a w/c to assist with mobility. Home/resume [employer] is the goal and CM has initiated and will follow for dc planning. PCP is Dr. Shell Lopez and Sister will transport to home.
[2024-02-08] MEDS: Benzonatate 100 MG CAPSULE PO (10:02)
--- NOTE | 2024-02-08 10:37 | PC.NURSE ---
Pt reporting increase in SOB, noted to have some tachypnea. Wheezing bilat. SPO2 94-95% on RA. Provider and RT notified, plan to give pt breathing rx.
[2024-02-08] MEDS: Albuterol Sulfate (0.083%) 2.5 MG/3 ML VIAL.NEB INHALE (11:08)
--- NOTE | 2024-02-08 11:12 | PHA.MEDREC ---
Pharmacy Consult ? Medication Reconciliation Pharmacy has completed the medication reconciliation. Pt did not know his meds. Could not get in contact with sister. Confirmed meds recently filled verbally with preferred Pharmacy.
[2024-02-08 11:34] LABS: Hematocrit 36.4 % (42.0-52.0); Hemoglobin 12.5 g/dl (14.0-18.0); Mean Corpuscular HGB Conc 34.3 g/dl (31.0-36.0); Mean Corpuscular Hemoglobin 31.7 pg (27.0-33.0); Mean Corpuscular Volume 92.4 fL (80.0-98.0); Mean Platelet Volume 11.4 fL (9.4-12.4); Red Blood Count 3.94 X10*6/uL (4.60-5.80); Red Cell Distribution Width 11.9 % (11.0-16.0); White Blood Count 9.6 X10*3/uL (4.8-10.8)
[2024-02-08 11:35] LABS: Platelet Count 99 X10*3/uL (160-400)
[2024-02-08 11:45] LABS: Anion Gap 8 (12-20); Blood Urea Nitrogen 18 mg/dL (9-16); Calcium 9.3 mg/dL (8.4-10.2); Carbon Dioxide 24 mmol/L (22-29); Chloride 112 mmol/L (96-108); Creatinine Clr Calc Pharmacy 63.3; Estimated Glomerular Filt Rate > 60; Glucose Random 79 mg/dL (60-115); Sodium 140 mmol/L (135-145)
[2024-02-08 11:50] LABS: B Type Natriuretic Peptide 16 pg/mL (<100)
[2024-02-08 11:56] LABS: Glucose, Whole Blood 89 mg/dL (60-115)
--- NOTE | 2024-02-08 12:17 | HO.PM.IMPN ---
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 Patient reports ongoing shortness of breath and productive cough Review of Systems Review of Systems: Yes all other systems are reviewed and are negative Constitutional Constitutional: Denies chills and Denies fever(s) Cardiovascular Cardiovascular: Denies chest pain Physical Exam Vital Signs: Vital Signs: Last Vital Signs Temp 98.6 F 02/08/24 10:37 Pulse 77 02/08/24 11:08 Resp 18 02/08/24 11:08 BP 137/71 02/08/24 06:38 Pulse Ox 94 02/08/24 10:37 O2 Del Method Room Air 02/08/24 10:37 BMI result Body Mass Index 22.1 Const: General: cooperative, comfortable, alert and awake Nutritional Appearance: average body habitus Resp: Other: course breath sounds b/l no rales Effort & Inspection: no respiratory distress and no use of accessory muscles GI: Inspection: No distended Extrem: Other: left BKA; no leg edema Objective Data Active Medications Acetaminophen (Acetaminophen 325 Mg Tablet) 650 mg PO Q6H PRN PRN Reason: Pain, Mild 1-3,fever,headache Albuterol Sulfate (Albuterol Sulfate (0.083%) 2.5 Mg/3 Ml Vial.Neb) 2.5 mg INHALE Q4H PRN PRN Reason: Shortness of Breath/Wheezing Last Admin: 02/08/24 11:08 Dose: 2.5 mg Documented By: MARIANA Benzonatate (Benzonatate 100 Mg Capsule) 100 mg PO TID PRN PRN Reason: Cough Last Admin: 02/08/24 10:02 Dose: 100 mg Documented By: MARIA D Calcium Carbonate (Calcium Carbonate 750 Mg Tab.Chew) 750 mg PO Q4H PRN PRN Reason: Heartburn Ceftriaxone Sodium (Ceftriaxone Sodium 1 Gm Vial) 1 gm IVPUSH Q24H [facility] Enoxaparin Sodium (Enoxaparin Sodium 40 Mg/0.4 Ml Syringe) 40 mg SUBCUT Q24H [facility]ON Last Admin: 02/08/24 06:31 Dose: 40 mg Documented By: SUSANA Glucose (Glucose Gel 15 Gm Gel..Gram.) 15 gm PO Q15M PRN; Protocol PRN Reason: per Hypoglycemia Standing Ord. Azithromycin 500 mg/ Sodium (Chloride) 250 mls @ 125 mls/hr IV Q24H [facility] Last Infusion: 02/08/24 09:28 Dose: Infused Documented By: SUNI Dextrose (D10) 250 mls @ 750 mls/hr IV Q15M PRN; Protocol PRN Reason: per Hypoglycemia Standing Ord. Insulin Human Lispro (Insulin Lispro 100 Unit/Ml 3 Ml Vial) 0 unit SUBCUT QIDACHS [facility]; Protocol Last Admin: 02/08/24 11:54 Dose: Not Given Documented By: MARIA D Non-Admin Reason: No Insulin Coverage Magnesium Hydroxide (Milk Of Magnesia 30 Ml Oral.Susp) 30 ml PO DAILY PRN PRN Reason: Constipation Melatonin (Melatonin 3 Mg Tablet) 6 mg PO BEDTIME PRN PRN Reason: Insomnia Ondansetron HCl (Ondansetron Hcl 4 Mg/2 Ml Vial) 4 mg IVPUSH Q8H PRN PRN Reason: Nausea and Vomiting Sodium Chloride (0.9 % Sodium Chloride Flush 3 Ml Syringe) 3 ml IVFLUSH QSHIFT [facility] Last Admin: 02/08/24 08:12 Dose: Not Given Documented By: SUNI Non-Admin Reason: IV Running Labs 02/08/24 11:22 02/08/24 11:22 Labs: Laboratory Results - last 24 hr 02/07/24 02/08/24 02/08/24 23:56 00:55 01:15 MCV 90.7 MCH 31.9 MCHC 35.1 RDW 12.0 Plt Count 126 L MPV 11.2 Immature Gran % (Auto) 0.5 H Neut % (Auto) 82.5 H Lymph % (Auto) 6.5 L [place] % (Auto) 8.1 Eos % (Auto) 2.1 Baso % (Auto) 0.3 Lymph # (Auto) 0.8 L [place] # (Auto) 1.0 Eos # (Auto) 0.3 Baso # (Auto) 0.0 Abs Immat Gran (auto) 0.06 H Absolute Neuts (auto) 10.2 H Absolute Nucleated RBC 0.000 Nucleated RBC % (auto) 0.0 Anion Gap 12 Estim Creat Clear Calc 69.2 Estimated GFR > 60 POC Glucose Random Glucose 107 Lactic Acid 0.9 Calcium 9.8 D Total Bilirubin 0.4 AST 29 ALT 60 H Alkaline Phosphatase 94 Troponin I High Sens 7.3 B-Natriuretic Peptide Total Protein 7.6 Albumin 4.5 Influenza Type A (PCR) NEGATIVE Influenza Type B (PCR) NEGATIVE RSV RNA Qual (PCR) NEGATIVE SARS-CoV-2 RNA (RT-PCR) NEGATIVE 02/08/24 02/08/24 02/08/24 08:08 11:22 11:52 MCV 92.4 MCH 31.7 MCHC 34.3 RDW 11.9 Plt Count 99 L MPV 11.4 Immature Gran % (Auto) Neut % (Auto) Lymph % (Auto) [place] % (Auto) Eos % (Auto) Baso % (Auto) Lymph # (Auto) [place] # (Auto) Eos # (Auto) Baso # (Auto) Abs Immat Gran (auto) Absolute Neuts (auto) Absolute Nucleated RBC 0.000 Nucleated RBC % (auto) 0.0 Anion Gap 8 L Estim Creat Clear Calc 63.3 Estimated GFR > 60 POC Glucose 215 H 89 Random Glucose 79 Lactic Acid Calcium 9.3 Total Bilirubin AST ALT Alkaline Phosphatase Troponin I High Sens B-Natriuretic Peptide 16 Total Protein Albumin Influenza Type A (PCR) Influenza Type B (PCR) RSV RNA Qual (PCR) SARS-CoV-2 RNA (RT-PCR) Assessment and Plan (1) Pneumonia: Status: Acute Plan Patient is a 58-year-old male with a past medical history significant for insulin-dependent diabetes, chronic osteomyelitis as post right BKA HIV, hepatitis and BPH, who presented to the ED today with productive cough with yellow sputum, fever, chills and dyspnea x3 days. Sepsis secondary to pneumonia Met criteria with leukocytosis, mild tachycardia, tachypnea lactic acid normal thrombocytopneia chronic not due to sepsis COVID/flu/RSV negative; full RPP pending continue ceftriaxone and azithromycin blood cultures pending Insulin-dependent diabetes unclear on meds; has fills for 70/30 and Lantus; poc 89 will follow insulin needs on SSI, start low dose lantus if necessary continue diabetic diet HIV continue formulary equivalent for Genvoya mood continue lithium, risperdal, benztropine Tobacco use disorder smoking cessation discussed declined nicotine patch bph continue proscar, flomax Full code VTE prophylaxis: Lovenox requires ongoing inpatient stay for pneumonia requiring IV antibiotics. Quality Stroke Does the patient have a stroke diagnosis?: No VTE Prior VTE?: No VTE Risk Level:: Medical - moderate - high VTE Device Contraindication: Treatment Not Indicated VTE Drug Contraindication: N/A - Med Ordered
[2024-02-08] MEDS: risperiDONE 2 MG TABLET PO (13:28)
[2024-02-08 14:35] LABS: Adenovirus PCR Not Detected (Not Detect.); Bordetella parapertussis PCR Not Detected (Not Detect.); Bordetella pertussis PCR Not Detected (Not Detect.); Chlamydia pneumoniae PCR Not Detected (Not Detect.); Coronavirus 229E PCR Not Detected (Not Detect.); Coronavirus HKU1 PCR Not Detected (Not Detect.); Coronavirus NL63 PCR Not Detected (Not Detect.); Coronavirus OC43 PCR Not Detected (Not Detect.); Human metapneumovirus PCR Not Detected (Not Detect.); Influenza A PCR Not Detected (Not Detect.); Influenza B PCR Not Detected (Not Detect.); Mycoplasma pneumoniae PCR Not Detected (Not Detect.); Parainfluenza 1 PCR Not Detected (Not Detect.); Parainfluenza 2 PCR Not Detected (Not Detect.); Parainfluenza 3 PCR Not Detected (Not Detect.); Parainfluenza 4 PCR Not Detected (Not Detect.); RSV PCR Not Detected (Not Detect.); Rhino/Enterovirus PCR Detected (Not Detect.)
[2024-02-08 15:59] LABS: SARS-CoV-2 PCR Not Detected (Not Detect.)
[2024-02-08] MEDS: 0.9 % Sodium Chloride Flush 3 ML SYRINGE IVFLUSH ×2 (16:42→20:33)
[2024-02-08 17:04] LABS: Glucose, Whole Blood 138 mg/dL (60-115)
--- NOTE | 2024-02-08 18:28 | PC.NURSE ---
Oral temp noted to be 100, pt reports feeling chills. No PRN tylenol due to allergy. provider notified.
[2024-02-08] MEDS: Acetaminophen 325 MG TABLET 650 MG PO (19:00)
--- NOTE | 2024-02-08 20:17 | HO.SKINPHOTO ---
Location: left foot Category: diabetic ulcer Stage: Length: Width: Depth: cm Location: Category: Stage: Length: Width: Depth: cm Location: Category: Stage: Length: Width: Depth: cm Location: Category: Stage: Length: Width: Depth: cm Location: Category: Stage: Length: Width: Depth: cm Location: Category: Stage: Length: Width: Depth: cm
[2024-02-08 20:30] LABS: Glucose, Whole Blood 149 mg/dL (60-115)
[2024-02-08] MEDS: risperiDONE 3 MG TABLET 6 MG PO (20:32)
[2024-02-08] MEDS: Pravastatin Sodium 40 MG TABLET PO (20:32)
[2024-02-08] MEDS: Docusate Sodium 100 MG CAPSULE PO (20:32)
[2024-02-08] MEDS: Tamsulosin HCL 0.4 MG CAPSULE PO (20:32)
[2024-02-08] MEDS: Benztropine Mesylate 1 MG TABLET 2 MG PO (20:32)
[2024-02-08] MEDS: ondansetron HCL 4 MG/2 ML VIAL IVPUSH (21:43)
[2024-02-09] VITALS: BP 144/84; PULSE 78; RESP 18; TEMP 36.8; O2SAT 96
[2024-02-09] MEDS: Azithromycin 500 MG in 0.9 % Sodium Chloride 250 ML 125 MG IV (05:29)
[2024-02-09] MEDS: Benzonatate 100 MG CAPSULE PO (05:37)
[2024-02-09] MEDS: Omeprazole 20 MG CAPSULE.DR PO (05:37)
[2024-02-09] MEDS: Enoxaparin Sodium 40 MG/0.4 ML SYRINGE SUBCUT (05:38)
[2024-02-09 07:08] LABS: Hematocrit 37.3 % (42.0-52.0); Hemoglobin 12.7 g/dl (14.0-18.0); Mean Corpuscular Hemoglobin 31.4 pg (27.0-33.0); Mean Corpuscular Volume 92.1 fL (80.0-98.0); Mean Platelet Volume 12.2 fL (9.4-12.4); Platelet Count 110 X10*3/uL (160-400); Red Blood Count 4.05 X10*6/uL (4.60-5.80); Red Cell Distribution Width 11.9 % (11.0-16.0); White Blood Count 9.6 X10*3/uL (4.8-10.8)
[2024-02-09 07:35] VITALS: BP 129/80; PULSE 92; RESP 18; TEMP 36.4; O2SAT 93
[2024-02-09 07:52] LABS: Glucose, Whole Blood 144 mg/dL (60-115)
[2024-02-09 07:55] LABS: Anion Gap 13 (12-20); Blood Urea Nitrogen 17 mg/dL (9-16); Calcium 9.2 mg/dL (8.4-10.2); Carbon Dioxide 22 mmol/L (22-29); Chloride 110 mmol/L (96-108); Creatinine Clr Calc Pharmacy 60.7; Estimated Glomerular Filt Rate > 60; Glucose Random 128 mg/dL (60-115); Sodium 141 mmol/L (135-145)
[2024-02-09] MEDS: 0.9 % Sodium Chloride Flush 3 ML SYRINGE IVFLUSH (09:05)
[2024-02-09] MEDS: Docusate Sodium 100 MG CAPSULE PO (09:06)
[2024-02-09] MEDS: polyethylene glycoL 3350 17 GM POWD.PACK PO (09:06)
[2024-02-09] MEDS: Propranolol HCL 20 MG TABLET PO (09:06)
[2024-02-09] MEDS: risperiDONE 2 MG TABLET PO (09:06)
[2024-02-09] MEDS: Lithium Carbonate 300 MG CAPSULE 900 MG PO (09:06)
[2024-02-09] MEDS: Benztropine Mesylate 1 MG TABLET 2 MG PO (09:06)
[2024-02-09] MEDS: Finasteride 5 MG TABLET PO (09:06)
[2024-02-09] MEDS: Elviteg/Cobi/Emtric/Tenofo Ala 150/150/200/10 TABLET 1 TAB PO (09:06)
[2024-02-09 11:10] LABS: Glucose, Whole Blood 264 mg/dL (60-115)
[2024-02-09] MEDS: Insulin Lispro 100 UNIT/ML 3 ML VIAL SUBCUT (11:29)
--- NOTE | 2024-02-09 11:52 | PM.DS ---
DS: Providers Provider Date of Service: 02/09/24 Date of admission: 02/08/24 05:19 Date of discharge: 02/09/24 Primary care physician: Shell Lopez MD Consults: 02/08/24 20:19 Consult to Wound Care Routine Reason for consultation: left foot diabetic ulcer Attending physician on discharge: Ruben Haines Discharging clinician: Sara Carty DS: Diagnosis Discharge Diagnosis (1) Pneumonia: Status: Acute DS: Summary Hospital Course Hospital Course: From H&P on the day of admission Patient is a 58-year-old male with a past medical history significant for insulin-dependent diabetes, chronic osteomyelitis as post right BKA HIV, hepatitis and BPH, who presented to the ED today with productive cough with yellow sputum, fever, chills and dyspnea x3 days. He denies any recent sick contacts. Does have chest pain with lying down that he describes as a tightness with mild wheeze. He has also has a history of smoking 1 pack a day for many years. He denies any urinary symptoms or abdominal pain. No lower extremity edema. Sepsis secondary to viral pneumonia Met criteria with leukocytosis, mild tachycardia, tachypnea which have resolved. lactic acid was normal. thrombocytopneia is chronic and not due to sepsis. cxr showed possible opacity concerning for pneumonia. COVID/flu/RSV negative; but full RPP was positive for entero/rhinovirus. He was treated with IV antibiotics as respiratory symptoms improved, has remained afebrile, no hypoxia. he is eager to return home and will be discharged to complete short course of oral antibiotics. Time Attestation Discharge Coordination Time (in mins): 36 Quality: Safe Use of Opioids Does Pt have an Active Cancer Diagnosis on the Problem List?: No Quality: Stroke Does the patient have a stroke diagnosis?: No Physical Exam Vital Signs: Vital Signs: Last Vital Signs Temp 97.5 F 02/09/24 07:35 Pulse 92 02/09/24 07:35 Resp 18 02/09/24 07:35 BP 129/80 02/09/24 07:35 Pulse Ox 93 02/09/24 07:35 O2 Del Method Room Air 02/09/24 07:35 BMI result Body Mass Index 22.1 Const: General: cooperative, comfortable, alert and awake Nutritional Appearance: average body habitus Resp: Other: course breath sounds b/l no rales Effort & Inspection: no respiratory distress and no use of accessory muscles GI: Inspection: No distended Extrem: Other: left BKA; no leg edema DS: Data Data Completed and Pending Completed studies during hospitalization [Text1]: Procedures Detachment at Right Foot, Partial 1st Ray, Open Approach (01/15/22) Detachment at Right Foot, Partial 2nd Ray, Open Approach (01/15/22) Detachment at Right Foot, Partial 3rd Ray, Open Approach (01/15/22) Detachment at Right Foot, Partial 4th Ray, Open Approach (01/15/22) Detachment at Right Foot, Partial 5th Ray, Open Approach (01/15/22) Excision of Right Foot Skin, External Approach (06/15/21) Excision of Right Foot Subcutaneous Tissue and Fascia, Open Approach (07/27/21) Excision of Right Foot Subcutaneous Tissue and Fascia, Percutaneous Approach (01/01/22) Insertion of Infusion Device into Superior Vena Cava, Percutaneous Approach (03/05/21) Labs on day of discharge: Laboratory Results - last 24 hr 02/08/24 02/08/24 02/08/24 11:52 12:27 16:42 WBC RBC Hgb Hct MCV MCH MCHC RDW Plt Count MPV Absolute Nucleated RBC Nucleated RBC % (auto) Sodium Potassium Chloride Carbon Dioxide Anion Gap BUN Creatinine Estim Creat Clear Calc Estimated GFR POC Glucose 89 138 H Random Glucose Calcium Respiratory Panel [place] See Note Adenovirus (Rapid PCR) Not Detected B.pert (TEM-PCR) Not Detected B.parapertussis DNA PCR Not Detected C. pneumoniae DNA (PCR) Not Detected Coronavirus OC43 (PCR) Not Detected Coronavirus HKU1 (PCR) Not Detected Coronavirus 229E (PCR) Not Detected Coronavirus NL63 (PCR) Not Detected Human Metapneumovir PCR Not Detected Influenza A (RT-PCR) Not Detected Influenza B (RT-PCR) Not Detected M. pneumoniae (PCR) Not Detected Parainfluenza 1 (PCR) Not Detected Parainfluenza 2 (PCR) Not Detected Parainfluenza 3 (PCR) Not Detected Parainfluenza 4 (PCR) Not Detected RSV (PCR) Not Detected Entero/Rhino (PCR) Detected A SARS-CoV-2 RNA (RT-PCR) Not Detected 02/08/24 02/09/24 02/09/24 20:26 05:40 07:38 WBC 9.6 RBC 4.05 L Hgb 12.7 L Hct 37.3 L MCV 92.1 MCH 31.4 MCHC 34.0 RDW 11.9 Plt Count 110 L MPV 12.2 Absolute Nucleated RBC 0.000 Nucleated RBC % (auto) 0.0 Sodium 141 Potassium 4.0 Chloride 110 H Carbon Dioxide 22 Anion Gap 13 BUN 17 H Creatinine 1.22 Estim Creat Clear Calc 60.7 Estimated GFR > 60 POC Glucose 149 H 144 H Random Glucose 128 H Calcium 9.2 Respiratory Panel [place] Adenovirus (Rapid PCR) B.pert (TEM-PCR) B.parapertussis DNA PCR C. pneumoniae DNA (PCR) Coronavirus OC43 (PCR) Coronavirus HKU1 (PCR) Coronavirus 229E (PCR) Coronavirus NL63 (PCR) Human Metapneumovir PCR Influenza A (RT-PCR) Influenza B (RT-PCR) M. pneumoniae (PCR) Parainfluenza 1 (PCR) Parainfluenza 2 (PCR) Parainfluenza 3 (PCR) Parainfluenza 4 (PCR) RSV (PCR) Entero/Rhino (PCR) SARS-CoV-2 RNA (RT-PCR) 02/09/24 11:05 WBC RBC Hgb Hct MCV MCH MCHC RDW Plt Count MPV Absolute Nucleated RBC Nucleated RBC % (auto) Sodium Potassium Chloride Carbon Dioxide Anion Gap BUN Creatinine Estim Creat Clear Calc Estimated GFR POC Glucose 264 H Random Glucose Calcium Respiratory Panel [place] Adenovirus (Rapid PCR) B.pert (TEM-PCR) B.parapertussis DNA PCR C. pneumoniae DNA (PCR) Coronavirus OC43 (PCR) Coronavirus HKU1 (PCR) Coronavirus 229E (PCR) Coronavirus NL63 (PCR) Human Metapneumovir PCR Influenza A (RT-PCR) Influenza B (RT-PCR) M. pneumoniae (PCR) Parainfluenza 1 (PCR) Parainfluenza 2 (PCR) Parainfluenza 3 (PCR) Parainfluenza 4 (PCR) RSV (PCR) Entero/Rhino (PCR) SARS-CoV-2 RNA (RT-PCR) Preliminary micro results at discharge 02/08/24 01:15 Blood Culture - Preliminary Blood - Venous No growth after 24 hours. 02/08/24 01:15 Blood Culture - Preliminary Blood - Venous No growth after 24 hours. Discharge Plan Discharge Anticipated Discharge Date/Time: 02/09/24 12:01 Patient Disposition: Home, Self-Care Discharge Diagnosis: rhino/enterovirus; pneumonia Referrals: Shell Lopez MD [Primary Care Provider] - 1 Week Discharge Medications: New azithromycin 250 mg tablet 250 mg PO DAILY 3 Days Qty: 3 0RF benzonatate 100 mg capsule 100 mg PO TID PRN (Reason: cough) Qty: 20 0RF Continued tamsulosin 0.4 mg capsule 0.4 mg PO BEDTIME 90 Days Qty: 90 3RF finasteride 5 mg tablet 5 mg PO DAILY Qty: 90 0RF omeprazole 20 mg capsule,delayed release(DR/EC) 20 mg PO DAILY@0630 insulin asp prt-insulin aspart [Novolog Mix 70-30FlexPen U-100] 100 unit/mL (70-30) insulin pen 15 unit subcut DAILY@0900 sennosides [senna] 8.6 mg tablet 17.2 mg PO DAILY@0900 risperidone 2 mg tablet 2 mg PO DAILY@0900 insulin asp prt-insulin aspart [Novolog Mix 70-30FlexPen U-100] 100 unit/mL (70-30) insulin pen 17 unit subcut DAILY@2100 (DME) Ultra-Light Rollator Misc See Rx Instructions .Route Qty: 1 0RF Rx Instructions: As directed docusate sodium 100 mg capsule 100 mg PO BID insulin glargine [Lantus Solostar U-100 Insulin] 100 unit/mL (3 mL) insulin pen 30 unit subcut BEDTIME Genvoya [phone] mg tablet 1 tab PO DAILY pravastatin 40 mg tablet 40 mg PO BEDTIME lithium carbonate 300 mg tablet 900 mg PO DAILY propranolol 20 mg tablet 20 mg PO DAILY risperidone 3 mg tablet 6 mg PO BEDTIME benztropine 2 mg tablet 2 mg PO BID polyethylene glycol 3350 [Gavilax] 17 gram/dose powder 17 g PO DAILY Discharge Orders: Discharge Order (Routine); Ordered 02/09/24 Ordered By: Sara Carty Activity on Discharge: As tolerated Stand Alone Forms: Patient Portal Discharge page Print Language: Faroese Care Plan Goals: See below Health Concerns: Pneumonia likely due to virus, you tested positive for rhino/enterovirus which is a common virus that causes cold symptoms. cough could last for a few weeks. stay hydrated. can use tessalon for cough. Plan of Treatment: Complete 3 more days of oral azithromycin Call to schedule follow-up appointment with primary care provider Assessment: see discharge summary
--- NOTE | 2024-02-09 12:14 | MHC.CM.PN ---
PT WILL DC HOME TODAY WITH NO NEW SERVICES VIA PRIVATE TRANSPORT
== END 2024-02-09 12:50 | disposition home or self-care (01) | DRG 720 ==
LOC: HO.ED 02-08 02:42 → HO.EDOVER 02-08 05:31 → HO.S3 02-08 19:39
PROVIDERS: Admitting Provider Student in an Organized Health Care Education/Training Program; Emergency Provider Emergency Medicine; PCP Pediatrics; Visit Provider Physician Assistant Medical
DX: A41.9 Sepsis, unspecified organism (principal); D69.6 Thrombocytopenia, unspecified; N40.0 Benign prostatic hyperplasia without lower urinary tract symptoms; F39 Unspecified mood [affective] disorder; E11.9 Type 2 diabetes mellitus without complications; J12.9 Viral pneumonia, unspecified; B97.89 Other viral agents as the cause of diseases classified elsewhere; B97.10 Unspecified enterovirus as the cause of diseases classified elsewhere; Z21 Asymptomatic human immunodeficiency virus [HIV] infection status; Z20.822 Contact with and (suspected) exposure to COVID-19; Z89.511 Acquired absence of right leg below knee; Z79.4 Long term (current) use of insulin; Z79.899 Other long term (current) drug therapy
CPT/HCPCS: 0241U; 36415; 71045; 80048; 80053; 82947; 83605; 83880; 84484; 85025; 85027; 87040; 87633; 93005; 94640; 99285; J0456; J0696; J1650; J1885; J2405

== ENCOUNTER → 2024-02-07 | Outpatient (BNV) | payer MEDICAID, SELFPAY | PROVIDERS: Admitting Provider Student in an Organized Health Care Education/Training Program; Emergency Provider Emergency Medicine; PCP Pediatrics; Visit Provider Internal Medicine Cardiovascular Disease | DX: R94.31 Abnormal electrocardiogram [ECG] [EKG] (principal) | CPT/HCPCS: 93010 ==

== ENCOUNTER → 2024-02-08 00:47 | Outpatient (BNV) | payer MEDICAID, SELFPAY | PROVIDERS: Emergency Provider Emergency Medicine; PCP Pediatrics; Visit Provider Radiology Diagnostic Radiology | DX: R50.9 Fever, unspecified (principal); R11.10 Vomiting, unspecified | CPT/HCPCS: 71045 ==

== ENCOUNTER → 2024-02-08 05:19 | Outpatient (BNV) | payer MEDICAID, SELFPAY | PROVIDERS: Admitting Provider Student in an Organized Health Care Education/Training Program; Emergency Provider Emergency Medicine; PCP Pediatrics; Visit Provider Physician Assistant | DX: J18.9 Pneumonia, unspecified organism (principal) | CPT/HCPCS: 99239 ==

== ENCOUNTER 2024-04-09 14:59 | Outpatient (AMB) | payer MEDICAID, SELFPAY ==
--- NOTE | 2024-04-09 15:18 | A.OFFVIS_ITS ---
Intake Visit Reasons: follow up/PVR(SET) Intake Note: Patient is present today for follow up/PVR Urology Med: Finasteride, Tamsulosin Antibiotic Allergy: None Blood Thinner: None PVR:11ml Armament Repairer Required: Yes Armament Repairer Language: Brazilian Information Interpreted: non-clinical & clinical Accompanied by: Self / Same As Patient Allergies acetaminophen [From TYLENOL] Allergy (Unknown, Verified 04/09/24 15:18) UNKNOWN aspirin [ASA] Allergy (Unknown, Verified 04/09/24 15:18) AGITATION chlorpromazine [From Thorazine] Allergy (Verified 04/09/24 15:18) Unknown clonazepam [From Klonopin] Allergy (Verified 04/09/24 15:18) Rash trazodone [TRAZODONE] Adverse Reaction (Unknown, Verified 04/09/24 15:18) HYPER HPI Comments Details: Leo is a pleasant Brazilian-speaking male. He is a patient of . He is seen for the following urologic conditions - erectile dysfunction - lower urinary tract symptoms - chronic prostatitis Brazilian translation provided by qualified medical equipment technician Six-month follow-up PVR 11 cc UA negative glucose Follow-up 12 months Did discuss constipation. Suggest MiraLax 2-3 servings per day. He lives in a alf - HIV dementia - and caregiver was present a conversation - diabetes, prostatitis, custodial lithium use Combination therapy for prostate appears to have good effect 08/27 Microgen Prostatitis with Staphylococcus resistant to penicillin and cephalasporins Sensitive to Bactrim and metronidazole Lower urinary tract symptoms Has been on tamsulosin with reasonable effect Has been on finasteride Main complaint is that of nocturia UA prior visit 07/27 3+ glucose, 355 Concurrent diagnoses include diabetes on insulin and mood stabilization with stones. [place] and HIV antiviral therapy. PSA 12/27 1.1 PFSH Medical History Diabetes Mood disorder Elevated C-reactive protein (CRP) Elevated erythrocyte sedimentation rate Enterococcal bacteremia Callus of foot Eschar of foot Diabetic foot ulcers Sepsis Osteomyelitis of left foot Open wnd foot-complicated HIV (human immunodeficiency virus infection) Hepatitis Chronic prostatitis Erectile dysfunction due to arterial insufficiency BPH w urinary obs/LUTS Urinary hesitancy Surgical History No pertinent past surgical history Family History Father No problems noted. Mother No problems noted. Social History Household Members: Family Household Members Other:: alf Housing: House Housing Other:: senior care Do you presently have visiting nurse or other home services: No Unable to assess alcohol history related to: Refusing to respond Alcohol intake: never Comment: RIGHT PRYOR Patient Tobacco Use Status: Current everyday Tobacco user Tobacco use type: Cigarette Cigarette Packs Per Day: 1 Cigarettes Per Day: 20.0 Second Hand Smoke Exposure: Yes service: No Current occupational status: unemployed Review of Systems Const Denies chills and Denies fever(s) Card Reports no additional complaints and Denies syncope Resp Denies cough GI Denies abdominal pain and Denies heartburn Reports as per HPI and Denies change in libido Neuro Denies syncope Psych Denies change in libido Endo Denies change in libido Physical Exam Const General: cooperative, healthy appearing, comfortable and no acute distress Orientation/consciousness: patient oriented x3 HEENT Face and sinus: Yes normal facial exam Mouth: moist mucous membranes Neck Neck: Yes normal visual inspection, Yes full ROM and Yes trachea midline Chest Chest palpation & inspection: normal inspection of the chest Resp Effort & Inspection: normal respiratory effort, able to speak in complete sentences and no respiratory distress GI Inspection: Yes normal to inspection Back/Spine/Pelvis Cervical Spine: normal cervical lordosis Thoracic/Lumbar Spine: thoracic and lumbar spine normal to inspection Skin General skin exam: no rashes or lesions noted Neuro General: patient oriented x3, gait normal, tone normal and moves all extremities Extrem General: Yes normal to inspection and Yes capillary refill normal Results AMB Urinalysis, Automated UA Leukoctes 0 Debby/uL Last Edit by Alexandra Vu on 04/09/24 15:32 UA Nitrite Negative Last Edit by Alexandra Vu on 04/09/24 15:32 UA Urobilinogen 3.5 mg/dL Last Edit by Alexandra Vu on 04/09/24 15:32 UA Protein 1 mg/dL Last Edit by Alexandra Vu on 04/09/24 15:32 UA pH 6.0 Last Edit by Alexandra Vu on 04/09/24 15:32 UA Blood 0 [place]/uL Last Edit by Alexandra Vu on 04/09/24 15:32 UA Specific [place] 1.010 Last Edit by Alexandra Vu on 04/09/24 15:32 UA Ketone Negative Last Edit by Alexandra Vu on 04/09/24 15:32 UA Bilirubin 0 mg/dL Last Edit by Alexandra Vu on 04/09/24 15:32 UA Glucose 0 mg/dL Last Edit by Alexandra Vu on 04/09/24 15:32 Results Reviewed Results Reviewed: Laboratory Last Values Urine pH (Auto) 6.0 04/09/24 15:24 Specific [place] (Auto) 1.010 04/09/24 15:24 Urine Protein (Auto) 1 mg/dL 04/09/24 15:24 Glucose (UA)(Auto) 0 mg/dL 04/09/24 15:24 Urine Ketones (Auto) Negative 04/09/24 15:24 Urine Blood (Auto) 0 [place]/uL 04/09/24 15:24 Urine Nitrite (Auto) Negative 04/09/24 15:24 Urine Bilirubin (Auto) 0 mg/dL 04/09/24 15:24 Urine Urobilinogen (Auto) 3.5 mg/dL 04/09/24 15:24 Leukocyte Esterase (Auto) 0 Debby/uL 04/09/24 15:24 Assessment & Plan Assessment & Plan (1) Prostatitis: Code(s): N41.9 - Inflammatory disease of prostate, unspecified Category: Medical Qualifiers: Prostatitis type: chronic Qualified Code(s): N41.1 - Chronic prostatitis (2) Bladder outlet obstruction: Code(s): N32.0 - Bladder-neck obstruction Category: Medical Plan Twelve month follow-up Refill medication Orders: Orders AMB Urinalysis Automated Today Z13.9 - Encounter for screening, unspecified Medications: Changed From finasteride 5 mg PO DAILY 90 tabs 0RF N13.8 - Other obstructive and reflux uropathy, N40.1 - Benign prostatic hyperplasia with lower urinary tract symptoms, R33.9 - Retention of urine, unspecified To finasteride 5 mg PO DAILY 90 days 90 tabs 3RF N13.8 - Other obstructive and reflux uropathy, N40.1 - Benign prostatic hyperplasia with lower urinary tract symptoms, R33.9 - Retention of urine, unspecified Refilled tamsulosin 0.4 mg PO BEDTIME 90 days 90 caps 3RF Patient Instructions: This note is constructed using voice recognition software. While every effort has been made to ensure accuracy sandwich counter attendant errors may have been included. Imaging studies, laboratory and physical exam results were discussed and reviewed in detail. No major barriers to patient understanding were identified. An opportunity to ask questions regarding the treatment plan was provided. All questions were answered. The patient expressed understanding and agreement with the above treatment plan. The patient is aware they should contact our office by phone for worsening of their current condition or the appearance of new urologic symptoms. Compliance is encouraged with any medications and followup testing that is ordered. It is a privilege to participate in the urologic care of your patient. If you have any questions or concerns regarding treatment for the above conditions, or other urologic issues, please do not hesitate to contact me. The office telephone contact is [phone]. Sincerely, Dr Guillermo White MD, [facility] - Urology Compassionate Specialist Care for the Genitourinary System Coding Level of Care Code Est Pt Level 3 (54487) Complex EM visit Add On G2211 Diagnoses Chronic prostatitis N41.1 Prostatitis type: chronic Bladder outlet obstruction N32.0
--- OUTSIDE RECORDS SUMMARY | 2024-04-09 18:58 | XMS_ITS | Encounter Summary ---
Author Organization [facility] Address [id number] [place] [phone] Care Team Providers Care Handle Rounder Operator Name Role Phone Shell Lopez MD Primary Care Provider [phone] Reason for Visit * Reason Comments Wound Check Encounter Details Date Type Department Care Team (Late st Contact Info) Description 04/01/2024 3:15 PM EST Office Visit Orthopedic Surgery - [place] [address] [phone] Bong Cardenas DPM [address] [address] Agnel fraser, left (Primary Dx); Follow-up exam; Ulcer of toe of left foot, limited to breakdown of skin (CMS/HCC); Cellulitis of left foot Social History Tobacco Use Types Packs/Day Years Used Date Smoking Tobacco: Never Assessed Sex and Gender Information Value Date Recorded Sex Assigned at Not on file Legal Sex Male 9:13 AM EST Gender Identity Not on file Sexual Orientation Not on file documented as of this encounter Ordered Prescriptions Prescription Sig Dispense Quantity Refills Last Filled Start Date End Date povidone-iodine (Betadine) 10 % topical solution Apply topically 1 (one) time each day. 473 mL 04/01/2024 documented in this encounter Progress Notes * Bong Cardenas DPM - 04/01/2024 3:15 PM EST S Patient presents to get a plain radiograph did not get an MRI states he presents with his daughter present this is history of below-knee amputations right lower extremity patient reports his left foot wound ulcer significantly improving has been taking oral antibiotics as prescribed does note that he has not been using iodine type in his description to his pharmacy difficult picking up overalls had significant proved his wound and just a week Last PCP visit 12/08/2023 Dr Shell Lopez MD ROS: GENERAL: Pt denies nausea, fever, vomiting, chills, or shortness of breath. Pt in NAD. CARDIOLOGY: pt denies chest pain, palpitations LUNGS: pt denies shortness of breath MUSCULOSKELETAL: See HPI, otherwise no joint pain or swelling, back pain, or muscle pain. SKIN: see HPI, otherwise no lesions, rash or itching NEURO: No persistent headache, weakness or numbness The remainder of the review of systems is noncontributory PAST MEDICAL HISTORY: Patient Active Problem List Diagnosis T2DM (type 2 diabetes mellitus) ([facility]) SOCIAL HISTORY: Social History Tobacco Use Smoking status: Not on file Smokeless tobacco: Not on file Substance Use Topics Alcohol use: Not on file ACTIVE MEDICATIONS: Outpatient Medications Marked as Taking for the 04/01/24 encounter (Office Visit) with Bong Mota DPM Medication Sig Dispense Refill povidone-iodine (Betadine) 10 % topical solution Apply topically 1 (one) time each day. 473 mL 0 ALLERGIES: Allergies Allergen Reactions Clonazepam Quetiapine Trazodone PHYSICAL EXAM: There were no vitals taken for this visit. PODIATRIC EXAMINATION: GENERAL: Patient appears well nourished, with NAD. VASCULAR: DP PT is here for left BKA right NEUROLOGICAL: Sharp/dull sensation absent, protective sensation 0/10 with 5.07 semmes lyle bilaterally, vibratory sensation with tuning fork intact to the tibial tuberosity. ORTHOPEDIC: BKA right DERMATOLOGICAL:. Resolved ulceration left foot Toenails: Left Toenail(s) 1-5: Crumbling upon debridement, subungual debris, discoloration, dystrophy, elongation, mycotic appearance, onychomycosis, pain and thickening. Annular scaling bilateral feet moccasin distribution Skin thinning texture shiny appearance diffuse hyperpigmentation bilaterally pedal hair decreased ULCER: LOCATION left foot subfifth metatarsal, 5 mm x 3 mm x 3 mm BIOMECHANICS: Ankle ROM WNL, STJ ROM wnl, MTJ ROM wnl, 1st MPJ ROM wnl. IMAGING: IMPRESSION: 1. Tailor's bunionette, left 2. Follow-up exam 3. Ulcer of toe of left foot, limited to breakdown of skin ([facility]) 4. Cellulitis of left foot PLAN: Pt was seen and examined, history reviewed. Radiographs reviewed stable findings Augmentin finish medication as prescribed significant proved of cellulitis Continue with aggressive padding placed foot Iodine resent to pharmacy be used topically for wound care Follow-up in 2 weeks ULCER: LOCATION left foot subfifth metatarsal, 5 mm x 3 mm x 3 mm Open wound Open wound selective debridement of devitalized soft tissue, fibrin, epidermis, dermis, thru skin tissue, through muscle tendinous tissue and capsular tissue left foot first 20 sq cm or less, using sterile sharp dissection #15 scalpel blade. Pt. deferred anesthesia. . Devitalized tissue was not sent to pathology. Bong Cardenas DPM documented in this encounter Plan of Treatment Upcoming Encounters Date Type Department Care Team (Late st Contact Info) Description 04/16/2024 3:30 PM EDT Office Visit Orthopedic Surgery - [place] [address] [phone] Bong Cardenas DPM [address] [phone] documented as of this encounter Results * XR Foot 3+ Views Left (04/01/2024 3:09 PM EST) Anatomical Region Laterality Modality Lower Extremities, Foot Left Computed Radiography Narrative 04/01/2024 3:30 PM EST Left foot 3 views Negative for acute erosions or changes for tailor's bunionette deformity Bong Cardenas DPM IMG XR PROCEDURES Final R esult documented in this encounter Visit Diagnoses Diagnosis Tailor's bunionette, left- Primary Follow-up exam Unspecified follow-up examination Ulcer of toe of left foot, limited to breakdown of skin (CMS/HCC) Cellulitis of left foot documented in this encounter Discontinued Medications Medication Sig Discontinue Reason Start Date End Da te povidone-iodine (Betadine) 10 % topical solution Apply topically 1 (one) time each day. Reorder 12/28/2023 04/01/2024 documented as of this encounter Care Teams Handle Rounder Operator Relationship Specialty Start Date End Date Shell Lopez MD [address] [place] [phone] PCP - General 08/16/23 documented as of this encounter
--- OUTSIDE RECORDS SUMMARY | 2024-04-09 18:58 | XMS_ITS | Encounter Summary ---
Author Organization [facility] Address [address] [place] [phone] Care Team Providers Care Welding Machine Operator Thermit Name Role Phone Shell Lopez MD Primary Care Provider [phone] Reason for Visit * Reason Comments Follow-up Diabetic foot exam Encounter Details Date Type Department Care Team (Late st Contact Info) Description 03/25/2024 3:00 PM EST Office Visit Orthopedic Surgery - [place] [address] [phone] Bong Cardenas, DPM [address] [address] Cellulitis of left foot (Primary Dx); Ulcer of toe of left foot, with necrosis of muscle (CMS/HCC); Tailor's bunionette, left Social History Tobacco Use Types Packs/Day Years Used Date Smoking Tobacco: Never Assessed Sex and Gender Information Value Date Recorded Sex Assigned at Not on file Legal Sex Male 9:13 AM EST Gender Identity Not on file Sexual Orientation Not on file documented as of this encounter Last Filed Vital Signs Vital Sign Reading Time Taken Comments Blood Pressure - - Pulse - - Temperature - - Respiratory Rate - - Oxygen Saturation - - Inhaled Oxygen Concentration - - Weight 63.5 kg (140 lb) 03/25/2024 2:48 PM EST Height 167.6 cm (5' 5.98 ) 03/25/2024 2:48 PM ES T Body Mass Index 22.61 03/25/2024 2:48 PM EST documented in this encounter Ordered Prescriptions Prescription Sig Dispense Quantity Refills Last Filled Start Date End Date amoxicillin-clavul anate (AUGMENTIN) 875-125 mg per tablet Take 1 tablet by mouth 2 (two) times a day for 10 days. 20 each 03/25/2024 04/04/2024 documented in this encounter Progress Notes * Bong Cardenas DPM - 03/25/2024 3:00 PM EST S Patient presents to get a plain radiograph did not get an MRI states he presents with his daughter present this is history of below-knee amputations right lower extremity patient reports his left foot wound ulcer significantly worsened states that there is an odor and some redness in the area is going for last 2 weeks Last PCP visit 12/08/2023 Dr Shell Lopez [...] List Diagnosis T2DM (type 2 diabetes mellitus) ([facility]) SOCIAL HISTORY: Social History Tobacco Use Smoking status: Not on file Smokeless tobacco: Not on file Substance Use Topics Alcohol use: Not on file ACTIVE MEDICATIONS: No outpatient medications have been marked as taking for the 03/25/24 encounter (Office Visit) with Bong Cardenas DPM. ALLERGIES: Allergies Allergen Reactions Clonazepam Quetiapine Trazodone PHYSICAL EXAM: Visit Vitals Ht 1.676 m (65.98 ) Wt 63.5 kg (140 lb) BMI 22.61 kg/m?? BSA 1.72 m?? PODIATRIC EXAMINATION: GENERAL: Patient appears well nourished, [...] decreased ULCER: LOCATION left foot subfifth metatarsal, SIZE, 3 cm x 3 cm x 3 to 4 mm, BASE, fibro-granular,RIM, hyperkeratotic, UNDERMINING, mild, TRACKING, necrotic muscle tendinous tissues capsular tissuelayer exposed,NECROTIC TISSUE, loosely- adherent yellow slough, DRAINAGE, serous, moderate, MALODOR,present, CALOR, absent, ERYTHEMA, localized. BIOMECHANICS: Ankle ROM WNL, STJ ROM wnl, MTJ ROM wnl, 1st MPJ ROM wnl. IMAGING: IMPRESSION: 1. Cellulitis of left foot 2. Ulcer of toe of left foot, with necrosis of muscle (CMS/HCC) 3. Tailor's bunionette, left PLAN: Pt was seen and examined, history reviewed. New x-ray order left foot 3 views Augmentin prescribed Reviewed patient that if redness or swelling worsens she is to present himself to the emergency room for IV antibiotics and surgical intervention Revisited surgical options which may be required pending clinical improvement given now acutely worsening ulceration with cellulitis Aggressive padding placed on patient's foot Follow-up in 1 week ULCER: LOCATION left foot subfifth metatarsal, SIZE, 3 cm x 3 cm x 3 to 4 mm, BASE, fibro-granular,RIM, hyperkeratotic, UNDERMINING, mild, TRACKING, necrotic muscle tendinous tissues capsular tissuelayer exposed,NECROTIC TISSUE, loosely- adherent yellow slough, DRAINAGE, serous, moderate, MALODOR,absent, CALOR, absent, ERYTHEMA, absent. Open wound Open wound selective debridement of devitalized soft tissue, fibrin, epidermis, dermis, thru skin and subcutaneous tissue, through muscle tendinous tissue and capsular [...] PM EDT Office Visit Orthopedic Surgery - [address] [phone] Bong Cardenas DPM 175 [facility] [address] [place] [address] documented as of this encounter Visit Diagnoses Diagnosis Cellulitis of left foot- Primary Ulcer of toe of left foot, with necrosis of muscle (CMS/HCC) Tailor's bunionette, left documented in this encounter Care Teams Welding Machine Operator Thermit Relationship Specialty Start Date End Date Shell Lopez MD [address] [place] [phone] PCP - General 08/16/23 documented as of this encounter
--- OUTSIDE RECORDS SUMMARY | 2024-04-09 18:58 | XMS_ITS | Clinical Summary ---
Author Organization 175 [facility] Address 175 [place] [address] Phone Care Team Providers Care Issuing Operator Name Role Phone Shell Lopez MD Primary Care Provider [phone] Allergies Active Allergy Reactions Criticality Noted Date Comments Clonazepam 11/16/2023 Quetiapine 11/16/2023 Trazodone 11/16/2023 Medications povidone-iodin e (Betadine) 10 % topical solution Apply topically 1 (one) time each day. 473 mL 5 Active povidone-iodin e (Betadine) 10 % topical solution Apply topically 1 (one) time each day. 473 mL 4 04/01/19 25 Discontinue d(Reorder) amoxicillin-cl avulanate (AUGMENTIN) 875-125 mg per tablet Take 1 tablet by mouth 2 (two) times a day for 10 days. 20 each 5 04/04/19 25 Active Problems Problem Noted Date Diagnosed Date T2DM (type 2 diabetes mellitus) 11/14/2023 Encounters Date Type Department Care Team Description 04/01/2024 3:15 PM EST Office Visit Orthopedic Surgery [place] [address] [phone] Bong Cardenas DPM Tailor's bunionette, left (Primary Dx); Follow-up exam; Ulcer of toe of left foot, limited to breakdown of skin (CMS/HCC); Cellulitis of left foot 03/25/2024 3:00 PM EST Office Visit Orthopedic [facility] [address] [phone] Bong Cardenas DPM Cellulitis of left foot (Primary Dx); Ulcer of toe of left foot, with necrosis of muscle (CMS/HCC); Angel fraser, left 01/22/2024 3:00 PM EST Office Visit Orthopedic Surgery [facility] [address] [phone] Bong Cardenas DPM Kumars evelio, left (Primary Dx); Dermatophytosis of nail; Pain in toe of left foot; Type II diabetes mellitus with peripheral circulatory disorder (CMS/HCC); Diabetic mononeuropathy simplex (CMS/HCC) from Last 3 Months Social History Tobacco Use Types Packs/Day Years Used Date Smoking Tobacco: Never Assessed Sex and Gender Information Value Date Recorded Sex Assigned at Not on file Legal Sex Male 9:13 AM EST Gender Identity Not on file Sexual Orientation Not on file Last Filed Vital Signs Vital Sign Reading Time Taken Comments Blood Pressure - - Pulse - - Temperature - - Respiratory Rate - - Oxygen Saturation - - Inhaled Oxygen Concentration - - Weight 63.5 kg (140 lb) 03/25/2024 2:48 PM EST Height 167.6 cm (5' 5.98 ) 03/25/2024 2:48 PM ES T Body Mass Index 22.61 03/25/2024 2:48 PM EST Plan of Treatment Upcoming Encounters Date Type Department Care Team (Late st Contact Info) Description 04/16/2024 3:30 PM EDT Office Visit Orthopedic [facility] [address] [phone] Bong Cardenas DPM [address] [phone] Health Maintenance Due Date Last Done Comments Diabetes: Annual GFR (Glomerular Filtration Rate) 1964 Diabetes: Annual Foot Exam 1974 Diabetes: Annual Retina Eye Exam 1974 Hepatitis B Vaccines (1 of 3 - 19+ 3-dose series) 12/20/1983 Pneumococcal Vaccine: 50+ Years (1 of 2 - PCV) 12/20/1983 Pneumococcal Vaccine: Pediatrics (0 to 5 Years) and At-Risk Patients (6 to 64 Years) (1 of 2 - PCV) 12/20/1983 Zoster Vaccines (1 of 2) 12/20/1983 Cholesterol Screening (Lipid Panel) 01/09/2022 Depression Screening 01/09/2022 HIV Screening 01/09/2022 Hepatitis C Screening 01/09/2022 Social Influencers of Health Screening 01/09/2022 COVID-19 Vaccine ( season) 2023 02/09/2023, 11/25/2020, 04/15/2020, Additional history exists Influenza Vaccine (#1) 2023 Diabetes: Annual Urine Albumin-Creatinine Ratio (uACR) 11/19/2023 Diabetes: Blood Sugar Control Test (HGBA1C) 11/19/2023 Colorectal Cancer Screening: FIT-DNA (Cologuard) 04/19/2026 04/20/2023 DTaP,Tdap,and Td Vaccines (4 - Td or Tdap) 01/16/2029 01/16/2019, 06/29/2017, 07/30/2014 RSV Immunization Patients 60+ Years Old (1 - 1-dose 75+ series) 12/20/2039 HIB Vaccines Aged Out No longer eligi ble based on patient's age to complete this topic HPV Vaccines Aged Out No longer eligi ble based on patient's age to complete this topic Hepatitis A Vaccines Aged Out No long er eligible based on patient's age to complete this topic IPV Vaccines Aged Out No longer eligi ble based on patient's age to complete this topic MMR Vaccines Aged Out No longer eligi ble based on patient's age to complete this topic Meningococcal ACWY Vaccine Aged Out N o longer eligible based on patient's age to complete this topic Meningococcal B Vacine Aged Out No lo nger eligible based on patient's age to complete this topic RSV Immunization Patients Under 20 months Aged Out No longer eligible based on patient's age to complete this topic Varicella Vaccines Aged Out No longer eligible based on patient's age to complete this topic Procedures Procedure Name Priority Date/Time Associated Diagnosis Comments XR FOOT 3+ VIEWS LEFT Routine 04/01/2024 3:09 PM EST Follow-up exam from Last 3 Months Results * XR Foot 3+ Views Left (04/01/2024 3:09 PM EST) Anatomical Region Laterality Modality Lower Extremities, Foot Left Computed Radiography Narrative 04/01/2024 3:30 PM EST Left foot 3 views Negative for acute erosions or changes for tailor's bunionette deformity us Bong Cardenas DPM IMG XR PROCEDURES Final R esult from Last 3 Months Insurance MEDICAID - [place] Care Teams Issuing Operator Relationship Specialty Start Date End Date Shell Lopez MD [address] [place] [phone] PCP - General 08/16/23
== END 2024-04-09 15:46 | disposition home or self-care (01) ==
LOC: HO.HUSH 14:59
PROVIDERS: PCP Pediatrics; Visit Provider Urology
DX: N41.1 Chronic prostatitis (principal); N32.0 Bladder-neck obstruction; Z13.9 Encounter for screening, unspecified
CPT/HCPCS: 99213

== ENCOUNTER → 2024-04-09 14:59 | Outpatient (BNVA) | payer MEDICAID, SELFPAY | PROVIDERS: PCP Pediatrics; Visit Provider Urology | DX: N41.1 Chronic prostatitis (principal); N32.0 Bladder-neck obstruction | CPT/HCPCS: 81003; 99212 ==

== ENCOUNTER 2024-06-13 15:59 | Outpatient (REF) | payer MEDICAID, SELFPAY ==
--- OUTSIDE RECORDS SUMMARY | 2024-06-13 16:15 | XMS_ITS | Clinical Summary ---
Author Organization 175 [facility] Address [address] [place] [address] Phone Care Team Providers Care Aviation Technical Systems Specialist Name Role Phone Shell Lopez MD Primary Care Provider [phone] Allergies Active Allergy Reactions Criticality Noted Date Comments Clonazepam 11/16/2023 Quetiapine 11/16/2023 Trazodone 11/16/2023 Medications povidone-iodine (Betadine) 10 % topical solution Apply topically 1 (one) time each day. 473 mL 5 Active povidone-iodine (Betadine) 10 % topical solution Apply topically 1 (one) time each day. 473 mL 5 Active Active Problems Problem Noted Date Diagnosed Date T2DM (type 2 diabetes mellitus) ([facility] V24, [facility] S/[facility] V28) 11/14/2023 Encounters Date Type Department Care Team Description 06/12/2024 3:30 PM EDT Office Visit Orthopedic Surgery [facility] [address] [phone] Bong Cardenas DPM Tailor's bunionette, left (Primary Dx); Ulcer of toe of left foot, with fat layer exposed ([facility] V24, [facility] V28) 05/27/2024 3:30 PM EDT Office Visit Orthopedic [facility] [address] [phone] Bong Cardenas, HALIE Tailor's bunionette, left (Primary Dx); Ulcer of toe of left foot, with fat layer exposed ([facility] V24, [facility] V28); Type II diabetes mellitus with peripheral circulatory disorder ([facility] V24, [facility] V28) 04/16/2024 3:30 PM EDT Office Visit Orthopedic [place] [address] [phone] Bong Cardenas, HALIE Tailor's bunionette, left (Primary Dx); Corns and callosities 04/01/2024 3:15 PM EST Office Visit Orthopedic [facility] [address] [phone] Bong Cardenas, HALIE Tailor's bunionette, left (Primary Dx); Follow-up exam; Ulcer of toe of left foot, limited to breakdown of skin ([facility] V24, [facility] V28); Cellulitis of left foot 03/25/2024 3:00 PM EST Office Visit [place] [address] [phone] Bong Cardenas, HALIE Cellulitis of left foot (Primary Dx); Ulcer of toe of left foot, with necrosis of muscle ([facility] V24, [facility] V28); Tailor's bunionette, left from Last 3 Months Social History Tobacco [...] - - Weight 63.5 kg (140 lb) 06/12/2024 3:14 PM EDT Height 167.6 cm (5' 5.98 ) 06/12/2024 3:14 PM ED T Body Mass Index 22.61 06/12/2024 3:14 PM EDT Plan of Treatment Upcoming Encounters Date Type Department Care Team (Late st Contact Info) Description 07/10/2024 3:15 PM EDT Office Visit Orthopedic [place] [address] [phone] Bong Cardenas, DPPablito 175 [facility] [address] [place] [address] Health Maintenance Due Date Last Done Comments [...] 2023 02/09/2023, 11/25/2020, 04/15/2020, Additional history exists Diabetes: Annual Urine Albumin-Creatinine Ratio (uACR) 11/19/2023 Diabetes: Blood Sugar Control Test (HGBA1C) 11/19/2023 Influenza Vaccine (Season Ended) 2024 Colorectal Cancer Screening: FIT-DNA (Cologuard) 04/19/2026 04/20/2023 DTaP,Tdap,and Td Vaccines (4 - Td or Tdap) 01/16/2029 01/16/2019, 06/29/2017, 07/30/2014 RSV Immunization Adult Patients (1 - 1-dose 75+ series) 12/20/2039 HIB [...] age to complete this topic Meningococcal B Vaccine Aged Out No l onger eligible based on patient's age to complete [...] Months Insurance MEDICAID - [place] Care Teams Aviation Technical Systems Specialist Relationship Specialty Start Date End Date Shell Lopez MD [address] [place] [phone] PCP - General 08/16/23
--- OUTSIDE RECORDS SUMMARY | 2024-06-13 16:15 | XMS_ITS | Encounter Summary ---
Author Organization [facility] Address [address] [place] [address] Care Team Providers Care Elevator Repair Mechanic Name Role Phone Shell Lopez MD Primary Care Provider [phone] Reason for Visit * Reason Comments Follow-up Diabetic foot exam Encounter Details Date Type Department Care Team ([facility] Contact Info) Description 06/12/2024 3:30 PM EDT Office Visit Orthopedic Surgery - [place] [address] [phone] Bong Cardenas DPM [address] [address] Tailor's bunionette, left (Primary Dx); Ulcer of toe of left foot, with fat layer exposed (CMS/HCC V24, CMS/HCC V28) Social History Tobacco Use Types Packs/Day Years [...] Mass Index 22.61 06/12/2024 3:14 PM EDT documented in this encounter Progress Notes * Bong Cardenas DPM - 06/12/2024 3:30 PM EDT S Patient presents today stating he is getting worsening pain discomfort of his left foot states the wound has reoccurred he got swelling of the foot of his left foot with thick callus formation and some drainage been going for last week he called to keep today's appointment has not been using iodineor bandaging at this time is walking normal shoe gear against recommendations has yet to get orthotics for insoles continues to fail all other treatment options has issues getting medications as prescribed resents today with his present Declined internet network specialist at today's appointment Last PCP visit 12/08/2023 Dr Shell Lopez [...] List Diagnosis T2DM (type 2 diabetes mellitus) ([facility] V24, [facility] V28) SOCIAL HISTORY: Social History Tobacco Use Smoking status: Not on file Smokeless tobacco: Not on file Substance Use Topics Alcohol use: Not on file ACTIVE MEDICATIONS: No outpatient medications have been marked as taking for the 06/12/24 encounter (Office Visit) with Bong Cardenas DPM. [...] the tibial tuberosity. ORTHOPEDIC: BKA right DERMATOLOGICAL:. Toenails: Left Toenail(s) 1-5: Crumbling upon debridement, subungual debris, discoloration, dystrophy, elongation, mycotic appearance, onychomycosis, pain and thickening. Ulcer left foot subfifth metatarsal measuring 2 cm x 2 cm x 3 mm into subcutaneous tissues no periwound erythema noted drainage is serosanguineous BIOMECHANICS: Ankle ROM WNL, STJ ROM wnl, MTJ ROM wnl, 1st MPJ ROM wnl. IMAGING: IMPRESSION: 1. Oliverio's bunionette, left 2. Ulcer of toe of left foot, with fat layer exposed (CMS/HCC V24, CMS/HCC V28) PLAN: Pt was seen and examined, history reviewed. 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 Pt. deferred anesthesia. . Devitalized tissue was not sent to pathology. Bong Cardenas DPM documented in this encounter Plan of Treatment Upcoming Encounters Date Type Department Care Team ([facility] st Contact Info) Description 07/10/2024 3:15 PM EDT Office Visit Orthopedic Surgery - [place] [address] [phone] Bong Cardenas DPM [address] [address] documented as of this encounter Visit Diagnoses Diagnosis Oliverio's bunionette, left- Primary Ulcer of toe of left foot, with fat layer exposed (CMS/HCC V24, CMS/[facility] V28) documented in this encounter Care Teams Elevator Repair Mechanic Relationship Specialty Start Date End Date Shell Lopez MD [address] [place] [phone] PCP - General 08/16/23 documented as of this encounter
[2024-06-13 17:40] LABS: MANUAL DIFF FLAG NO
[2024-06-13 17:56] LABS: Basophils Percent Auto 0.4 % (0-2); Eosinophils Absolute Auto 0.2 X10*3/uL (0.0-0.4); Eosinophils Percent Auto 2.4 % (0-4); Hematocrit 37.2 % (42.0-52.0); Hemoglobin 12.6 g/dl (14.0-18.0); Imm Gran Abs Auto 0.03 X10*3/uL (0.00-0.03); Imm Gran Pct Auto 0.3 % (0.0-0.4); Lymphocytes Absolute Auto 1.5 X10*3/uL (1.2-4.9); Mean Corpuscular HGB Conc 33.9 g/dl (31.0-36.0); Mean Corpuscular Volume 91.6 fL (80.0-98.0); Mean Platelet Volume 11.5 fL (9.4-12.4); Monocytes Absolute Auto 0.8 X10*3/uL (0.1-1.2); Monocytes Percent Auto 7.9 % (2-11); Platelet Count 174 X10*3/uL (160-400); Red Blood Count 4.06 X10*6/uL (4.60-5.80); Red Cell Distribution Width 12.1 % (11.0-16.0); White Blood Count 9.6 X10*3/uL (4.8-10.8)
[2024-06-13 18:04] LABS: Alanine Aminotransferase 24 U/L (0-40); Albumin Level 4.1 g/dL (3.5-5.0); Alkaline Phosphatase 96 U/L (39-117); Anion Gap 9 (12-20); Aspartate Amino Transferase 23 U/L (5-37); Bilirubin Total 0.3 mg/dL (0.0-1.0); Blood Urea Nitrogen 20 mg/dL (9-16); Calcium 9.2 mg/dL (8.4-10.2); Carbon Dioxide 26 mmol/L (22-29); Chloride 108 mmol/L (96-108); Estimated Glomerular Filt Rate 53; Glucose Random 112 mg/dL (60-115); Sodium 139 mmol/L (135-145); Total Protein 7.1 g/dL (6.5-8.0)
[2024-06-14 13:38] LABS: HIV RNA PCR Qn Copies 23 copies/mL (NOT DETECTED); HIV RNA PCR Qn Log Copies 1.36 (NOT DETECTED)
[2024-06-14 18:28] LABS: Mumps Virus IgG Antibody >300.00 AU/mL; Rubeola IgG (Measles) >300.00 AU/mL
[2024-06-15 20:38] LABS: TS Negative Control Passed; TS Panel A 0; TS Panel B 0; TS Positive Control Passed; TSpotTB Negative (Negative)
[2024-06-19 23:38] LABS: Absolute CD3 Count 1402 cells/uL (840-3060); Absolute CD4 Count 438 cells/uL (490-1740); Absolute CD8 Count 962 cells/uL (180-1170); Absolute Lymphocytes 1680 cells/uL (850-3900); CD4 CD8 Ratio 0.46 (0.86-5.00); Percent CD3 Cells 83 % (57-85); Percent CD4 Cells 26 % (30-61); Percent CD8 Cells 57 % (12-42)
== END 2024-06-13 16:00 | disposition home or self-care (01) ==
LOC: HO.CHCLDS 15:59
PROVIDERS: Internal Medicine; Visit Provider Pediatrics
DX: B20 Human immunodeficiency virus [HIV] disease (principal); Z11.1 Encounter for screening for respiratory tuberculosis
CPT/HCPCS: 36415; 80053; 85025; 86359; 86360; 86481; 86735; 86762; 86765; 87536

== ENCOUNTER 2024-07-30 11:30 | Emergency (ER) | payer MEDICAID, SELFPAY ==
[2024-07-30] VITALS (8 sets, daily range): BP systolic 122–149; BP diastolic 51–75; PULSE 77–89; RESP 12–18; TEMP 36.8–37.7; O2SAT 96–98; BMI 19.8
--- NOTE | ~2024-07-30 | XR_ITS ---
EXAMINATION: XR CHEST 1 VIEW HISTORY: abd pain COMPARISON: Comparison is made with the prior examination dated 02/08/2024. FINDINGS: A single AP portable view of the chest performed at 12:30 PM is submitted. There is a somewhat rounded opacity at the medial aspect of the right lung base. The left lung is clear. There is no pleural effusion, pneumothorax, or pulmonary vascular congestion. The heart is normal in size. The bones are intact. XR/XR chest 1V IMPRESSION: Rounded opacity at the medial aspect of the right lung base which could represent a mass or possibly pneumonia. Chest CT is suggested for further characterization. Electronically signed by: Mati Batista MD 07/30/2024 12:34 PM EDT
--- NOTE | ~2024-07-30 | CT_ITS ---
CLINICAL HISTORY: right lung mass CT chest with contrast Comparison: Chest x-ray from 07/30/2024 Findings: Masslike consolidation measures 3 cm in the anterior basal segment of the right lower lobe. Differential considerations include neoplasm and postobstructive pneumonia with architectural distortion in spiculated margins. Additional mild bibasilar atelectasis/pneumonitis accentuated by artifacts, right worse than left. Moderate emphysematous changes of the both lungs with bilateral scarring, including lung apices. No pneumothorax or pleural effusion. Mild cardiomegaly. Nonenlarged mediastinal lymphadenopathy by CT. Index nodule in the left lobe of the thyroid measures 2 cm selectively. Likely enlargement of the partially imaged thyroid. Degenerative changes include imaged shoulders and imaged spine. Schmorl's nodes are multifocal. Partial fusion of the sternum and manubrium. Mild vertebral height losses appear old/chronic. Please refer to CTA abdomen and pelvis report for included upper abdomen in the [id number]. IMPRESSION: 3 cm masslike consolidation in the right lower lobe. Differential considerations include lung neoplasm. Recommend tissue sampling and/or additional diagnostics. This document has been electronically signed by: Mariano Wayne MD on 07/30/2024 20:18:45
--- NOTE | ~2024-07-30 | CT_ITS ---
CLINICAL HISTORY: TTP RLQ CT abdomen and pelvis with contrast Comparison: None provided Findings: Masslike consolidation measures 3 cm in the partially imaged right lower lobe. Please refer to separate report for chest CT. Mild fat deposition of the mild periportal edema. Gallbladder is contracted and otherwise unremarkable for CT. Mild bilateral adrenal hyperplasia. Borderline splenomegaly. Mild volume loss of the pancreas with motion artifacts partly obscuring the upper abdomen. No suspicious features of the 2.4 cm cystic lesion of the left kidney or 1.4 cm cystic lesion of the upper pole of the right kidney. Additional cystic lesions of the both kidneys are too small to characterize. No hydronephrosis. No small bowel obstruction. Enteric contrast and/or dense ingested material noted including in the terminal ileum in the cecum. Contrast refluxes into the appendix include obscure appendicolith. Imaged appendix is otherwise unremarkable without definite findings of acute appendicitis (image 65 of series 11). Moderate to severe stool burden. Wall thickening of the large intestine is nonspecific and may reflect colitis including descending colon with mild adjacent fluid (image 52 through 61 of series 11). No free intraperitoneal air. No drainable abscess by CT. The prostate gland measures 4.5 cm transverse. Mild wall thickening of the urinary bladder is nonspecific. Cystitis include considered given mild adjacent fluid. Calcified and noncalcified plaque include imaged aorta and its branches in the nonvascular study. Degenerative changes include the hips, SI joints, and spine. Mild vertebral height losses appear old/chronic including imaged thoracic vertebrae. Facet arthropathy is multifocal, including imaged lumbar spine. IMPRESSION: 1. Wall thickening of the large intestine is nonspecific and concerning for colitis, including descending colon. 2. Mild periportal edema. 3. No small bowel obstruction. This document has been electronically signed by: Mariano Wayne MD on 07/30/2024 20:12:49
--- NOTE | 2024-07-30 11:52 | ED.ABDPAIN ---
HPI - Abdominal Pain General Chief Complaint: Abdominal Pain Stated Complaint: R side abd pain Time Seen by Provider: 07/30/24 18:09 Source: patient, RN notes reviewed, old records reviewed and size worker Mode of arrival: EMS Limitations: language barrier History of Present Illness ED Provider: Hawa HPI narrative: 58-year-old male with past medical history significant for HIV, diabetes, peripheral artery disease, presents for evaluation of abdominal pain. Patient reports right lower abdominal pain for the last 3 days. He has associated nausea, denies any vomiting or diarrhea. He reports he has had regular bowel movements he does not feel constipated. Denies any black or bloody stool pain Denies any history abdominal surgeries Denies any fevers or chills pain His pain a 07/16 Related Data Home Medications ?Medication ?Instructions ?Recorded ?Confirmed benztropine 2 mg tablet 2 mg PO BID 02/16/21 02/08/24 elviteg 150 mg-cob 150 mg-emtricit 1 tab PO DAILY 02/16/21 02/08/24 200 mg-tenofo alafenam 10 mg tablet (Genvoya) lithium carbonate 300 mg tablet 900 mg PO DAILY 02/16/21 02/08/24 pravastatin 40 mg tablet 40 mg PO BEDTIME 02/16/21 02/08/24 propranolol 20 mg tablet 20 mg PO DAILY 02/16/21 02/08/24 risperidone 3 mg tablet 6 mg PO BEDTIME 02/16/21 02/08/24 insulin aspar prot-insulin aspart 15 unit subcut DAILY@0900 03/05/21 02/08/24 100 unit/mL (70-30) subcutaneous pen (Novolog Mix 70-30FlexPen U-100) omeprazole 20 mg capsule,delayed 20 mg PO DAILY@0630 03/05/21 02/08/24 release polyethylene glycol 3350 17 17 g PO DAILY 09/02/21 02/08/24 gram/dose oral powder (Gavilax) insulin aspar prot-insulin aspart 17 unit subcut DAILY@2100 01/01/22 02/08/24 100 unit/mL (70-30) subcutaneous pen (Novolog Mix 70-30FlexPen U-100) risperidone 2 mg tablet 2 mg PO DAILY@0900 01/01/22 02/08/24 sennosides 8.6 mg tablet (senna) 17.2 mg PO DAILY@0900 01/01/22 02/08/24 docusate sodium 100 mg capsule 100 mg PO BID 02/08/24 02/08/24 insulin glargine 100 unit/mL (3 30 unit subcut BEDTIME 02/08/24 02/08/24 mL) subcutaneous pen (Lantus Solostar U-100 Insulin) Previous Rx's ?Medication ?Instructions ?Recorded walker (Ultra-Light Rollator misc) #1 ea 01/24/22 azithromycin 250 mg tablet 250 mg PO DAILY 3 days #3 tabs 02/09/24 benzonatate 100 mg capsule 100 mg PO TID PRN cough #20 caps 02/09/24 finasteride 5 mg tablet 5 mg PO DAILY 90 days #90 tabs 04/09/24 tamsulosin 0.4 mg capsule 0.4 mg PO BEDTIME 90 days #90 caps 04/09/24 amoxicillin 875 mg-potassium 1 tab PO Q12H #14 tabs 07/30/24 clavulanate 125 mg tablet Allergies Allergy/AdvReac Type Severity Reaction Status Date / Time acetaminophen (From TYLENOL) Allergy Unknown UNKNOWN Verified 07/30/24 11:54 aspirin (ASA) Allergy Unknown AGITATION Verified 07/30/24 11:54 chlorpromazine (From Allergy Unknown Verified 07/30/24 11:54 Thorazine) clonazepam (From Klonopin) Allergy Rash Verified 07/30/24 11:54 trazodone (TRAZODONE) AdvReac Unknown HYPER Verified 07/30/24 11:54 Review of Systems Constitutional: Denies body ache(s), Denies chills, Denies fever(s) and Denies headache(s) Eyes: Denies blurry vision Denies headache(s) Cardiovascular: Denies chest pain and Denies dyspnea Respiratory: Denies cough and Denies dyspnea Gastrointestinal: Reports abdominal pain, Denies constipation, Reports nausea and Denies vomiting Musculoskeletal: Denies back pain Skin/Breast: Denies rash Denies headache(s) PMFSH Past Medical History Medical History Diabetes Mood disorder Elevated C-reactive protein (CRP) Elevated erythrocyte sedimentation rate Enterococcal bacteremia Callus of foot Eschar of foot Diabetic foot ulcers Sepsis Osteomyelitis of left foot Open wnd foot-complicated HIV (human immunodeficiency virus infection) Hepatitis Chronic prostatitis Erectile dysfunction due to arterial insufficiency BPH w urinary obs/LUTS Urinary hesitancy Surgical History No pertinent past surgical history Family History Family History Father No problems noted. Mother No problems noted. Social History Social History Household Members: Family Household Members Other:: half-way Housing: House Housing Other:: [facility] Do you presently have visiting nurse or other home services: No Unable to assess alcohol history related to: Refusing to respond Alcohol intake: never Comment: RIGHT BKA Patient Tobacco Use Status: Current everyday Tobacco user Tobacco use type: Cigarette Cigarette Packs Per Day: 1 Cigarettes Per Day: 20.0 Smoked in Last 30 Days: No Second Hand Smoke Exposure: Yes Use of substances other than those prescribed or required for medical reasons: No Advance Directives: No Advance Directives Information Provided: Yes Do you have a plan to hurt others: No Plan service: No Current occupational status: unemployed Physical Exam ED Vital Signs: Vital Signs - 24 hr 07/30/24 11:52 07/30/24 17:17 07/30/24 19:04 Temperature 98.6 F 98.4 F 99.8 F Pulse Rate 81 89 87 Respiratory Rate 16 18 13 Blood Pressure 134/70 149/75 H 133/73 Pulse Oximetry 98 98 96 Oxygen Delivery Method Room Air Room Air Room Air 07/30/24 20:18 07/30/24 21:37 07/30/24 21:54 Temperature 99.3 F 98.3 F 99.0 F Pulse Rate 80 79 77 Respiratory Rate 17 13 12 Blood Pressure 126/62 122/51 L 123/59 L Pulse Oximetry 96 97 97 Oxygen Delivery Method Room Air Room Air Room Air BMI result Body Mass Index 19.8 Const General: healthy appearing, comfortable, no acute distress, alert and awake Nutritional Appearance: well nourished Orientation/consciousness: patient oriented x3 HENMT Head: Yes normocephalic and Yes atraumatic Eyes Eyelids: Yes eyelids normal Conjunctivae: conjunctivae normal Sclerae: sclerae normal Corneas: corneas normal Pupils: Equal, round and reactive pupils present EOM: EOMs intact bilaterally Neck Neck: Yes full ROM Resp Effort & Inspection: normal respiratory effort, able to speak in complete sentences, no audible wheezes and not labored Auscultation: clear to auscultation bilaterally Cardio Rate: regular rate Rhythm: regular rhythm GI Inspection: No distended Palpation (GI): Soft to palpation, not firm, Tenderness to palpation present (GI) in the RLQ, in the RUQ and at McBurney's point; not in the LLQ, not in the LUQ and Mcgrath's sign negative, no guarding and not rigid Skin General skin exam: elasticity normal Neuro General: patient oriented x3 Cranial nerves: Yes Equal, round and reactive pupils present and Yes Bilaterally intact EOM present Cognition (Neuro): normal cognition Extrem Other: Moving all extremities well without any obvious deformities Course Reevaluation(s) Reevaluation #1: Lia Mulligan PA-C 11:53 am 07/30/2024 RME, will defer full ROS and PE to main provider Hx of depression Abd pain x 3 days, last meal yesterday, keeping fluids down, voiding regularly, no fevers, no hx of abd surgeries TTP RLQ, last BM: 4 days ago No vomiting or diarrhea, only nausea Time: 11:53 Medical Decision Making Medical Decision Making [facility] Narrative: 58-year-old male past medical history as above presents for evaluation of abdominal pain. He has some right lower abdominal tenderness with the associated nausea. Has a leukocytosis [address]. High concern for acute appendicitis. A urinalysis is also pending. I ordered a CT scan of the abdomen pelvis. Also in the differential includes constipation, diverticulitis, enteritis, biliary disease is favored to be less likely as his pain is right lower abdomen. Differential Diagnosis Differential Diagnoses: The differential diagnosis associated with the presentation includes As above Lab Data [facility] Lab Attestation statement: I reviewed the patient[place]. [place] [address], this could be indicative infectious pathology, there was a left shift. He has a chronic normocytic anemia consistent with his baseline. Normal platelet count. No significant electrolyte abnormalities warranting intervention 07/30/24 12:50 07/30/24 12:50 Labs: Lab Results 07/30/24 07/30/24 Range/Units 12:50 19:06 WBC 16.0 H (4.8-10.8) X10*3/uL RBC 4.23 L (4.60-5.80) X10*6/uL Hgb 12.8 L (14.0-18.0) g/dl Hct 37.4 L (42.0-52.0) % MCV 88.4 (80.0-98.0) fL MCH 30.3 (27.0-33.0) pg MCHC 34.2 (31.0-36.0) g/dl RDW 11.7 (11.0-16.0) % Plt Count 216 (160-400) X10*3/uL MPV 10.1 (9.4-12.4) fL Immature Gran % (Auto) 0.7 H (0.0-0.4) % Neut % (Auto) 81.4 H (45-73) % Lymph % (Auto) 7.1 L (20-40) % [place] % (Auto) 10.0 (2-11) % Eos % (Auto) 0.6 (0-4) % Baso % (Auto) 0.2 (0-2) % Lymph # (Auto) 1.1 L (1.2-4.9) X10*3/uL [place] # (Auto) 1.6 H (0.1-1.2) X10*3/uL Eos # (Auto) 0.1 (0.0-0.4) X10*3/uL Baso # (Auto) 0.0 (0.0-0.2) X10*3/uL Abs Immat Gran (auto) 0.11 H (0.00-0.03) X10*3/uL Absolute Neuts (auto) 13.1 H (2.0-8.3) x10*3/uL Absolute Nucleated RBC 0.000 (0.0-0.012) X10*3/uL Nucleated RBC % (auto) 0.0 (0.0-0.2) /100WBC Smear Tech's Comments VERIFIED Sodium 137 (135-145) mmol/L Potassium 3.6 (3.3-5.1) mmol/L Chloride 103 (96-108) mmol/L Carbon Dioxide 22 (22-29) mmol/L Anion Gap 16 (12-20) BUN 17 H (9-16) mg/dL Creatinine 1.33 (0.5-1.4) mg/dL Estim Creat Clear Calc 49.8 Estimated GFR 55 Fasting Glucose 134 H (60-99) mg/dL Calcium 9.9 D (8.4-10.2) mg/dL Magnesium 2.3 (1.6-2.6) mg/dL Total Bilirubin 0.6 (0.0-1.0) mg/dL AST 28 (5-37) U/L ALT 32 (0-40) U/L Alkaline Phosphatase 113 (39-117) U/L Total Protein 7.9 (6.5-8.0) g/dL Albumin 4.2 (3.5-5.0) g/dL Lipase 49 (8-78) U/L Urine Color Yellow Urine Appearance Clear Urine pH 6.0 (5.0-9.0) Ur Specific Morris 1.015 (1.005-1.025) Urine Protein 30 (1+) H (Neg-Trace) mg/dL Urine Glucose (UA) >=1000 H (Negative) mg/dL Urine Ketones 15 (Negative) mg/dL Urine Blood Trace H (Negative) Urine Nitrite Negative (Negative) Ur Leukocyte Esterase Negative (Negative) Urine RBC 0-2 (0-2) /HPF Urine WBC 0-5 (0-5) /HPF Ur Squamous Epith Cells 0-2 (0-2) /HPF Urine Bacteria None Seen (None Seen) Hyaline Casts 0-2 (0-2) /LPF Medications Administered Discontinued Medications Generic Name Dose Route Start Last Admin Trade Name Freq PRN Reason Stop Dose Admin Diatrizoate Meglum/Diatrizoate Sod 30 ml 07/30/24 19:16 07/30/24 19:17 Diatrizoate Meglumine, Sodium 30 Ml Solution PO 07/30/24 19:17 30 ml ONCE ONE Administration Sodium Chloride 1,000 mls @ 999 mls/hr 07/30/24 20:15 07/30/24 21:53 Ns IV 07/30/24 21:15 Infused .Q1H1M BRANDON Infusion Iohexol 100 ml 07/30/24 19:17 07/30/24 19:19 Iohexol 350 Mg/Ml 100 Ml Infus..Btl IV 07/30/24 19:18 85 ml ONCE ONE Administration Morphine Sulfate 4 mg 07/30/24 20:11 07/30/24 20:17 Morphine Sulfate 4 Mg/Ml Cartridge IVPUSH 07/30/24 20:12 4 mg ONCE ONE Administration Protocol Ondansetron HCl 4 mg 07/30/24 20:11 07/30/24 20:17 Ondansetron Hcl 4 Mg/2 Ml Vial IVPUSH 07/30/24 20:12 4 mg ONCE ONE Administration Discharge Plan Discharge Clinical Impression: Colitis, Lung mass Patient Disposition: Home, Self-Care Instructions: Colitis (ED) Additional Instructions: Your abdominal pain today is likely cause by colitis, and infection of the colon that can cause abdominal pain and diarrhea. Take Augmentin twice daily for 1 week I recommend a liquid diet for the next few days until your pain begins to resolve Your chest x-ray showed a right lung mass and the follow-up CT scan confirmed a 3 cm mass. Given your history of smoking, this is very concerning for cancer Call your primary doctor tomorrow morning to schedule follow-up and let them know of the lung mass Prescriptions: New amoxicillin-pot clavulanate 875-125 mg tablet 1 tab PO Q12H Qty: 14 0RF No Action omeprazole 20 mg capsule,delayed release(DR/EC) 20 mg PO DAILY@0630 insulin asp prt-insulin aspart [Novolog Mix 70-30FlexPen U-100] 100 unit/mL (70-30) insulin pen 15 unit subcut DAILY@0900 sennosides [senna] 8.6 mg tablet 17.2 mg PO DAILY@0900 risperidone 2 mg tablet 2 mg PO DAILY@0900 insulin asp prt-insulin aspart [Novolog Mix 70-30FlexPen U-100] 100 unit/mL (70-30) insulin pen 17 unit subcut DAILY@2100 (DME) Ultra-Light Rollator Misc See Rx Instructions .Route Qty: 1 0RF Rx Instructions: As directed docusate sodium 100 mg capsule 100 mg PO BID insulin glargine [Lantus Solostar U-100 Insulin] 100 unit/mL (3 mL) insulin pen 30 unit subcut BEDTIME azithromycin 250 mg tablet 250 mg PO DAILY 3 Days Qty: 3 0RF benzonatate 100 mg capsule 100 mg PO TID PRN (Reason: cough) Qty: 20 0RF Genvoya [phone] mg tablet 1 tab PO DAILY pravastatin 40 mg tablet 40 mg PO BEDTIME lithium carbonate 300 mg tablet 900 mg PO DAILY propranolol 20 mg tablet 20 mg PO DAILY risperidone 3 mg tablet 6 mg PO BEDTIME benztropine 2 mg tablet 2 mg PO BID polyethylene glycol 3350 [Gavilax] 17 gram/dose powder 17 g PO DAILY tamsulosin 0.4 mg capsule 0.4 mg PO BEDTIME 90 Days Qty: 90 3RF finasteride 5 mg tablet 5 mg PO DAILY 90 Days Qty: 90 3RF Referrals: [facility] Oncology/Hematology [Provider Group] Referral Note: right lung mass Print Language: Unable To Collect
[2024-07-30 13:03] LABS: Basophils Percent Auto 0.2 % (0-2); Eosinophils Absolute Auto 0.1 X10*3/uL (0.0-0.4); Eosinophils Percent Auto 0.6 % (0-4); Hematocrit 37.4 % (42.0-52.0); Hemoglobin 12.8 g/dl (14.0-18.0); Imm Gran Abs Auto 0.11 X10*3/uL (0.00-0.03); Imm Gran Pct Auto 0.7 % (0.0-0.4); Lymphocytes Absolute Auto 1.1 X10*3/uL (1.2-4.9); Lymphocytes Percent Auto 7.1 % (20-40); MANUAL DIFF FLAG SCAN; Mean Corpuscular HGB Conc 34.2 g/dl (31.0-36.0); Mean Corpuscular Hemoglobin 30.3 pg (27.0-33.0); Mean Corpuscular Volume 88.4 fL (80.0-98.0); Mean Platelet Volume 10.1 fL (9.4-12.4); Monocytes Absolute Auto 1.6 X10*3/uL (0.1-1.2); Neutrophils Absolute Auto 13.1 x10*3/uL (2.0-8.3); Neutrophils Percent Auto 81.4 % (45-73); Platelet Count 216 X10*3/uL (160-400); Red Blood Count 4.23 X10*6/uL (4.60-5.80); Red Cell Distribution Width 11.7 % (11.0-16.0); SCAN SMEAR FLAG 1
[2024-07-30 13:16] LABS: Alanine Aminotransferase 32 U/L (0-40); Albumin Level 4.2 g/dL (3.5-5.0); Alkaline Phosphatase 113 U/L (39-117); Anion Gap 16 (12-20); Aspartate Amino Transferase 28 U/L (5-37); Bilirubin Total 0.6 mg/dL (0.0-1.0); Blood Urea Nitrogen 17 mg/dL (9-16); Calcium 9.9 mg/dL (8.4-10.2); Carbon Dioxide 22 mmol/L (22-29); Chloride 103 mmol/L (96-108); Creatinine Clr Calc Pharmacy 49.8; Estimated Glomerular Filt Rate 55; Glucose Fasting 134 mg/dL (60-99); Lipase 49 U/L (8-78); Magnesium 2.3 mg/dL (1.6-2.6); Potassium 3.6 mmol/L (3.3-5.1); Sodium 137 mmol/L (135-145); Total Protein 7.9 g/dL (6.5-8.0)
[2024-07-30 13:30] LABS: SLIDE REVIEW VERIFIED
[2024-07-30 19:15] LABS: Appearance Urine Clear; Color Urine Yellow; Glucose Urine UA >=1000 mg/dL (Negative); Leukocyte Esterase Urine Negative (Negative); Nitrite Urine Negative (Negative); Specific Gravity - Urine 1.015 (1.005-1.025); UMIC TRIGGER UACC YES; Urine Blood Trace (Negative); Urine Ketones 15 mg/dL (Negative); Urine Protein 30 (1+) mg/dL (Neg-Trace)
--- OUTSIDE RECORDS SUMMARY | 2024-07-30 19:15 | XMS_ITS | Clinical Summary ---
Author Organization [address] [facility] Address [address] [place] [address] Phone Care Team Providers Care Olive Packer Name Role Phone Shell Lopez MD Primary Care Provider [phone] Allergies Active Allergy Reactions Criticality Noted Date Comments Clonazepam 11/16/2023 Quetiapine 11/16/2023 Trazodone 11/16/2023 Medications povidone-iodine (Betadine) 10 % topical solution Apply topically 1 (one) time each day. 473 mL 5 Active povidone-iodine (Betadine) 10 % topical solution Apply topically 1 (one) time each day. 473 mL 5 Active Active Problems Problem Noted Date Diagnosed Date T2DM (type 2 diabetes mellitus) ([facility] V24, S/[facility] V28) 11/14/2023 Encounters Date Type Department Care Team Description 07/10/2024 3:15 PM EDT Office Visit Orthopedic Surgery [address] [phone] Bong Cardenas, HALIE Duron's franciscoe, left (Primary Dx); Ulcer of toe of left foot, with fat layer exposed ([facility] V24, [facility] V28); Type II diabetes mellitus with peripheral circulatory disorder ([facility] V24, [facility] V28) 06/12/2024 3:30 PM EDT Office Visit Orthopedic [facility] [address] [phone] Bong Cardenas, HALIE Duron's angelaionette, left (Primary Dx); Ulcer of toe of left foot, with fat layer exposed ([facility] V24, [facility] V28) 05/27/2024 3:30 PM EDT Office Visit Orthopedic Surgery [place] [phone] [phone] Bong Cardenas DPM Angel fraser, left (Primary Dx); Ulcer of toe of left foot, with fat layer exposed ([facility] V24, [facility] V28); Type II diabetes mellitus with peripheral circulatory disorder ([facility] V24, [facility] V28) from Last 3 Months Social History Tobacco [...] Oxygen Concentration - - Weight 63.5 kg (139 lb 15.9 oz) 07/10/2024 3:47 PM EDT Height 167.6 cm (5' 5.98 ) 07/10/2024 3:47 PM ED T Body Mass Index 22.61 07/10/2024 3:47 PM EDT Plan of Treatment Upcoming Encounters Date Type Department Care Team (Late st Contact Info) Description 08/21/2024 3:30 PM EDT Office Visit Orthopedic [place] [phone] [phone] Bong Cardenas DPM [address] [place] [phone] Health Maintenance Due Date Last Done Comments [...] on patient's age to complete this topic Insurance [place] Care Teams Olive Packer Relationship Specialty Start Date End Date Shell Lopez MD [address] [place] [phone] PCP - General 08/16/23
[2024-07-30] MEDS: Diatrizoate Meglumine, Sodium 30 ML SOLUTION PO (19:17)
[2024-07-30] MEDS: iohexoL 350 MG/ML 100 ML INFUS..BTL IV (19:19)
[2024-07-30 19:25] LABS: Bacteria Urine None Seen (None Seen); Hyaline Casts Urine 0-2 /LPF (0-2); RBC Urine 0-2 /HPF (0-2); Squamous Epithelial Cell Urine 0-2 /HPF (0-2); WBC Urine 0-5 /HPF (0-5)
[2024-07-30] MEDS: 0.9 % Sodium Chloride 1,000 ML 999 ML IV (20:16)
[2024-07-30] MEDS: ondansetron HCL 4 MG/2 ML VIAL IVPUSH (20:17)
[2024-07-30] MEDS: Morphine Sulfate 4 MG/ML CARTRIDGE IVPUSH (20:17)
== END 2024-07-30 22:45 | disposition home or self-care (01) ==
PROVIDERS: Physician Assistant; Physician Assistant Medical; Emergency Provider Emergency Medicine; PCP Pediatrics
DX: K52.9 Noninfective gastroenteritis and colitis, unspecified (principal); R10.31 Right lower quadrant pain; R91.8 Other nonspecific abnormal finding of lung field; B20 Human immunodeficiency virus [HIV] disease; E11.9 Type 2 diabetes mellitus without complications; F17.210 Nicotine dependence, cigarettes, uncomplicated; Z89.511 Acquired absence of right leg below knee; Z79.4 Long term (current) use of insulin; Z79.899 Other long term (current) drug therapy
CPT/HCPCS: 36415; 71045; 71260; 74177; 80053; 81001; 83690; 83735; 85025; 96361; 96374; 96375; 99284; 99285; J2270; J2405; Q9967

== ENCOUNTER → 2024-07-30 11:55 | Outpatient (BNV) | payer MEDICAID, SELFPAY | PROVIDERS: Visit Provider Radiology Diagnostic Radiology | DX: R10.31 Right lower quadrant pain (principal); R91.8 Other nonspecific abnormal finding of lung field | CPT/HCPCS: 71045; 71260; 74177 ==

== ENCOUNTER 2024-10-16 05:15 | Outpatient (REF) | payer MEDICAID, SELFPAY ==
[2024-10-16 05:18] LABS: MANUAL DIFF FLAG NO
--- OUTSIDE RECORDS SUMMARY | 2024-10-16 05:19 | XMS_ITS | Clinical Summary ---
Author Organization [address] [facility] Address [address] [place] [address] Phone Care Team Providers Care Cylinder Machine Operator Name Role Phone Shell Lopez MD Primary Care Provider [phone] Allergies Active Allergy Reactions Criticality Noted Date Comments Clonazepam 11/16/2023 Quetiapine 11/16/2023 Trazodone 11/16/2023 Medications povidone-iodine (Betadine) 10 % topical solution Apply topically 1 (one) time each day. 473 mL 5 Active povidone-iodine (Betadine) 10 % topical solution Apply topically 1 (one) time each day. 473 mL 5 Active Active Problems Problem Noted Date Diagnosed Date T2DM (type 2 diabetes mellitus) (CMS/[facility] V24, CM S/[facility] V28) 11/14/2023 Social History Tobacco Use Types Packs/Day Years [...] 07/10/2024 3:47 PM EDT Plan of Treatment Health Maintenance Due Date Last Done Comments Diabetes: Annual GFR (Glomerular Filtration Rate) 1964 Diabetes: Annual Foot Exam 1974 Diabetes: Annual Retina Eye Exam 1974 Hepatitis A Vaccines (1 of 2 - Risk 2-dose series) 12/20/1983 Hepatitis B Vaccines (1 of 3 - 19+ 3-dose series) 12/20/1983 Pneumococcal Vaccine: 50+ Years (1 of 2 - PCV) 12/20/1983 Zoster Vaccines (1 of 2) 2014 Cholesterol Screening (Lipid Panel) 01/09/2022 HIV Screening 01/09/2022 Hepatitis C Screening 01/09/2022 Social Influencers of Health Screening 01/09/2022 Diabetes: Annual Urine Albumin-Creatinine Ratio (uACR) 11/19/2023 Diabetes: Blood Sugar Control Test (HGBA1C) 11/19/2023 Depression Screening 02/07/2024 COVID-19 Vaccine ( season) 2024 02/09/2023, 11/25/2020, 04/15/2020, Additional history exists Influenza Vaccine (#1) 2024 Colorectal Cancer Screening: FIT-DNA (Cologuard) 04/19/2026 [...] to complete this topic Insurance MEDICAID - [place] Care Teams Cylinder Machine Operator Relationship Specialty Start Date End Date Shell Lopez MD [address] [place] [phone] PCP - General 08/16/23
[2024-10-16 05:26] LABS: Hematocrit 25.0 % (42.0-52.0); Hemoglobin 7.9 g/dl (14.0-18.0); Imm Gran Abs Auto 0.11 X10*3/uL (0.00-0.03); Imm Gran Pct Auto 0.8 % (0.0-0.4); Lymphocytes Absolute Auto 1.9 X10*3/uL (1.2-4.9); Mean Corpuscular HGB Conc 31.6 g/dl (31.0-36.0); Mean Corpuscular Hemoglobin 28.6 pg (27.0-33.0); Mean Corpuscular Volume 90.6 fL (80.0-98.0); NRBC Abs Auto 0.000 X10*3/uL (0.0-0.012); NRBC Pct Auto 0.0 /100WBC (0.0-0.2); Platelet Count 323 X10*3/uL (160-400); Red Blood Count 2.76 X10*6/uL (4.60-5.80); White Blood Count 13.7 X10*3/uL (4.8-10.8)
[2024-10-16 05:36] LABS: Lithium 0.78 mmol/L (0.60-1.20)
[2024-10-16 05:52] LABS: Alanine Aminotransferase 17 U/L (0-40); Albumin Level 3.2 g/dL (3.5-5.0); Alkaline Phosphatase 105 U/L (39-117); Anion Gap 15 (12-20); Aspartate Amino Transferase 21 U/L (5-37); Blood Urea Nitrogen 35 mg/dL (9-16); Calcium 8.9 mg/dL (8.4-10.2); Carbon Dioxide 25 mmol/L (22-29); Chloride 105 mmol/L (96-108); Estimated Glomerular Filt Rate 55; Potassium 4.5 mmol/L (3.3-5.1); Sodium 140 mmol/L (135-145); Total Protein 6.2 g/dL (6.5-8.0)
[2024-10-16 06:08] LABS: Thyroid Stimulating Hormone 1.09 uIU/mL (0.32-4.0)
== END 2024-10-16 05:16 | disposition home or self-care (01) ==
LOC: HO.MMNH1L 05:15
PROVIDERS: Visit Provider Physician Assistant Medical
DX: Z13.89 Encounter for screening for other disorder (principal)
CPT/HCPCS: 36415; 80053; 80178; 83036; 84443; 85025

== ENCOUNTER 2024-10-18 03:40 | Emergency (ER) | payer MEDICAID, SELFPAY ==
--- NOTE | 2024-10-18 03:48 | ED.GENADULT ---
HPI - General Adult General Chief complaint: General Medical Stated complaint: SOB Time Seen by Provider: 10/18/24 03:44 Source: EMS Mode of arrival: EMS Limitations: physical limitation (Tracheostomy in place) History of Present Illness ED Provider: HPI narrative: 58-year-old male with past medical history significant for HIV, diabetes, trach dependent presenting with pulling out his trach tube presented via EMS. No other issues or concerns reported. Related Data Home Medications ?Medication ?Instructions ?Recorded ?Confirmed benztropine 2 mg tablet 2 mg PO BID 02/16/21 02/08/24 elviteg 150 mg-cob 150 mg-emtricit 1 tab PO DAILY 02/16/21 02/08/24 200 mg-tenofo alafenam 10 mg tablet (Genvoya) lithium carbonate 300 mg tablet 900 mg PO DAILY 02/16/21 02/08/24 pravastatin 40 mg tablet 40 mg PO BEDTIME 02/16/21 02/08/24 propranolol 20 mg tablet 20 mg PO DAILY 02/16/21 02/08/24 risperidone 3 mg tablet 6 mg PO BEDTIME 02/16/21 02/08/24 insulin aspar prot-insulin aspart 15 unit subcut DAILY@0903/05/21 02/08/24 100 unit/mL (70-30) subcutaneous pen (Novolog Mix 70-30FlexPen U-100) omeprazole 20 mg capsule,delayed 20 mg PO DAILY@0630 03/05/21 02/08/24 release polyethylene glycol 3350 17 17 g PO DAILY 09/02/21 02/08/24 gram/dose oral powder (Gavilax) insulin aspar prot-insulin aspart 17 unit subcut DAILY@2100 01/01/22 02/08/24 100 unit/mL (70-30) subcutaneous pen (Novolog Mix 70-30FlexPen U-100) risperidone 2 mg tablet 2 mg PO DAILY@0901/01/22 02/08/24 sennosides 8.6 mg tablet (senna) 17.2 mg PO DAILY@0901/01/22 02/08/24 docusate sodium 100 mg capsule 100 mg PO BID 02/08/24 02/08/24 insulin glargine 100 unit/mL (3 30 unit subcut BEDTIME 01/02/25 01/02/25 mL) subcutaneous pen (Lantus Solostar U-100 Insulin) Previous Rx's ?Medication ?Instructions ?Recorded walker (Ultra-Light Rollator misc) #1 ea 01/24/22 azithromycin 250 mg tablet 250 mg PO DAILY 3 days #3 tabs 02/09/24 benzonatate 100 mg capsule 100 mg PO TID PRN cough #20 caps 02/09/24 finasteride 5 mg tablet 5 mg PO DAILY 90 days #90 tabs 04/09/24 tamsulosin 0.4 mg capsule 0.4 mg PO BEDTIME 90 days #90 caps 04/09/24 amoxicillin 875 mg-potassium 1 tab PO Q12H #14 tabs 07/30/24 clavulanate 125 mg tablet Allergies Allergy/AdvReac Type Severity Reaction Status Date / Time acetaminophen (From TYLENOL) Allergy Unknown UNKNOWN Verified 10/18/24 03:52 aspirin (ASA) Allergy Unknown AGITATION Verified 10/18/24 03:52 chlorpromazine (From Allergy Unknown Verified 10/18/24 03:52 Thorazine) clonazepam (From Klonopin) Allergy Rash Verified 10/18/24 03:52 trazodone (TRAZODONE) AdvReac Unknown HYPER Verified 10/18/24 03:52 Review of Systems Constitutional: Constitutional: Reports as per [facility] Past Medical History Medical History Diabetes Mood disorder Elevated C-reactive protein (CRP) Elevated erythrocyte sedimentation rate Enterococcal bacteremia Callus of foot Eschar of foot Diabetic foot ulcers Sepsis Osteomyelitis of left foot Open wnd foot-complicated HIV (human immunodeficiency virus infection) Hepatitis Chronic prostatitis Erectile dysfunction due to arterial insufficiency BPH w urinary obs/LUTS Urinary hesitancy Surgical History No pertinent past surgical history Family History Family History Father No problems noted. Mother No problems noted. Social History Social History Household Members: Family Household Members Other:: nursing home Housing: House Housing Other:: custodial Do you presently have visiting nurse or other home services: No Unable to assess alcohol history related to: Refusing to respond Alcohol intake: never Comment: RIGHT BKA Patient Tobacco Use Status: Current everyday Tobacco user Tobacco use type: Cigarette Cigarette Packs Per Day: 1 Cigarettes Per Day: 20.0 Second Hand Smoke Exposure: Yes service: No Current occupational status: unemployed Physical Exam ED Vital Signs: Vital Signs - 24 hr 10/18/24 03:50 10/18/24 03:53 Temperature 98.6 F Pulse Rate 81 87 Respiratory Rate 16 16 Blood Pressure 116/70 116/70 Pulse Oximetry 97 100 Oxygen Delivery Method Trach Collar Trach Collar Oxygen Flow Rate 7 BMI result Body Mass Index 21.0 Const Other: Gen: ?Chronically ill-appearing HEENT: Somewhat dry oral mucosa Neck: Stoma clean, no drainage CV: S1-S2 Resp: ?No wheezing rales rhonchi no stridor moving air well Abd: ?G-tube insertion in place MSK: Decreased muscle mass all extremities, he has right BKA Skin: No jaundice Neuro: ?Alert Medical Decision Making Medical Decision Making MDM Narrative: 3:53 AM 10/18/2024 (Dr. Dm Hackett): Patient is presenting with displaced tracheostomy tube, has not been a significant respiratory distress, RTs were called to bedside to replace the tube, he is otherwise chronically ill-appearing. G-tube was replaced in ED without any complications there was no bleeding or Ativan it is for any infectious etiology it was replaced with 7.5 mm uncuffed tube patient is doing well Differential Diagnosis Differential Diagnoses: The differential diagnosis associated with the presentation includes (Failure to thrive, pneumonia, stoma cellulitis, bleeding) Admission/Observation Consideration of admission/observation: Escalation of care including admission/observation considered Independent Historian Clinical information obtained from an independent historian. History obtained from or confirmed by: EMS External Record Review External record reviewed: Inpatient record Chronic Conditions Patient?s care impacted by: Other (Tracheostomy dependent) Social Determinants Patient?s care significantly limited by Social Determinants of Health including: Problems related to primary support group Discharge Plan Discharge Clinical Impression: Encounter for tracheostomy tube change Patient Disposition: er [facility] Additional Instructions: Tracheostomy tube was replaced 7.5 mm uncuffed tracheostomy tube placed Prescriptions: No Action omeprazole 20 mg capsule,delayed release(DR/EC) 20 mg PO DAILY@0630 insulin asp prt-insulin aspart [Novolog Mix 70-30FlexPen U-100] 100 unit/mL (70-30) insulin pen 15 unit subcut DAILY@0900 sennosides [senna] 8.6 mg tablet 17.2 mg PO DAILY@0900 risperidone 2 mg tablet 2 mg PO DAILY@0900 insulin asp prt-insulin aspart [Novolog Mix 70-30FlexPen U-100] 100 unit/mL (70-30) insulin pen 17 unit subcut DAILY@2100 (DME) Ultra-Light Rollator Misc See Rx Instructions .Route Qty: 1 0RF Rx Instructions: As directed docusate sodium 100 mg capsule 100 mg PO BID insulin glargine [Lantus Solostar U-100 Insulin] 100 unit/mL (3 mL) insulin pen 30 unit subcut BEDTIME azithromycin 250 mg tablet 250 mg PO DAILY 3 Days Qty: 3 0RF benzonatate 100 mg capsule 100 mg PO TID PRN (Reason: cough) Qty: 20 0RF amoxicillin-pot clavulanate 875-125 mg tablet 1 tab PO Q12H Qty: 14 0RF Genvoya 231-601-244-10 mg tablet 1 tab PO DAILY pravastatin 40 mg tablet 40 mg PO BEDTIME lithium carbonate 300 mg tablet 900 mg PO DAILY propranolol 20 mg tablet 20 mg PO DAILY risperidone 3 mg tablet 6 mg PO BEDTIME benztropine 2 mg tablet 2 mg PO BID polyethylene glycol 3350 [Gavilax] 17 gram/dose powder 17 g PO DAILY tamsulosin 0.4 mg capsule 0.4 mg PO BEDTIME 90 Days Qty: 90 3RF finasteride 5 mg tablet 5 mg PO DAILY 90 Days Qty: 90 3RF Print Language: Unable To Collect
[2024-10-18 03:50] VITALS: BP 116/70; PULSE 81; RESP 16; O2SAT 97; BMI 21.0
[2024-10-18 03:53] VITALS: BP 116/70; PULSE 87; RESP 16; TEMP 37; O2SAT 100
--- NOTE | 2024-10-18 03:56 | PC.NURSE ---
pt kareen mendoza [facility] trach coming out, resp at bedside to replace trach 7.5 uncuffed
--- OUTSIDE RECORDS SUMMARY | 2024-10-18 04:18 | XMS_ITS | Clinical Summary ---
Author Organization 175 [facility] Address [address] [place] [address] Phone Care Team Providers Care Automatic Pattern Edger Name Role Phone Shell Lopez MD Primary Care Provider [phone] Allergies Active Allergy Reactions Criticality Noted Date Comments Clonazepam 11/16/2023 Quetiapine 11/16/2023 Trazodone 11/16/2023 Medications povidone-iodine (Betadine) 10 % topical solution Apply topically 1 (one) time each day. 473 mL 5 Active povidone-iodine (Betadine) 10 % topical solution Apply topically 1 (one) time each day. 473 mL 5 Active Active Problems Problem Noted Date Diagnosed Date T2DM (type 2 diabetes mellitus) (CMS/[facility] V24, CM S/[facility] V28) 11/14/2023 Social History Tobacco [...] topic Insurance MED[place] - [place] Care Teams Automatic Pattern Edger Relationship Specialty Start Date End Date Shell Lopez MD [address] [place] [phone] PCP - General 08/16/23
[2024-10-18 05:18] VITALS: BP 116/70; PULSE 87; RESP 16; TEMP 37; O2SAT 100
== END 2024-10-18 05:19 ==
PROVIDERS: Emergency Provider Emergency Medicine; PCP Physician Assistant Medical
DX: J95.03 Malfunction of tracheostomy stoma (principal); R06.02 Shortness of breath
CPT/HCPCS: 99283

== ENCOUNTER 2024-10-28 07:16 | Outpatient (REF) | payer MEDICAID, SELFPAY ==
[2024-10-28 06:41] LABS: MANUAL DIFF FLAG NO
[2024-10-28 07:15] LABS: Hematocrit 27.4 % (42.0-52.0); Hemoglobin 9.0 g/dl (14.0-18.0); Imm Gran Abs Auto 0.10 X10*3/uL (0.00-0.03); Imm Gran Pct Auto 0.8 % (0.0-0.4); Lymphocytes Absolute Auto 2.1 X10*3/uL (1.2-4.9); Mean Corpuscular HGB Conc 32.8 g/dl (31.0-36.0); Mean Corpuscular Hemoglobin 29.7 pg (27.0-33.0); Mean Corpuscular Volume 90.4 fL (80.0-98.0); NRBC Abs Auto 0.000 X10*3/uL (0.0-0.012); NRBC Pct Auto 0.0 /100WBC (0.0-0.2); Platelet Count 232 X10*3/uL (160-400); Red Blood Count 3.03 X10*6/uL (4.60-5.80); White Blood Count 12.5 X10*3/uL (4.8-10.8)
--- OUTSIDE RECORDS SUMMARY | 2024-10-28 07:20 | XMS_ITS | Clinical Summary ---
Author Organization 175 [facility] Address [address] [place] [address] Phone Care Team Providers Care Manufacturing Worker Name Role Phone Shell Lopez MD Primary Care Provider [phone] Allergies Active Allergy Reactions Criticality Noted Date Comments Clonazepam 11/16/2023 Quetiapine 11/16/2023 Trazodone 11/16/2023 Medications povidone-iodine (Betadine) 10 % topical solution Apply topically 1 (one) time each day. 473 mL 5 Active povidone-iodine (Betadine) 10 % topical solution Apply topically 1 (one) time each day. 473 mL 5 Active Active Problems Problem Noted Date Diagnosed Date T2DM (type 2 diabetes mellitus) (CMS/[facility] V24, CM S/[facility] V28) 11/14/2023 Social History Tobacco Use Types [...] topic Insurance [place] - [place] Care Teams Manufacturing Worker Relationship Specialty Start Date End Date Shell Lopez MD [address] [place] [phone] PCP - General 08/16/23
[2024-10-28 07:26] LABS: Hemoglobin A1C 91.1260 umol/L; Total Hemoglobin (HGBA1C) 2399.4478 umol/L
[2024-10-28 07:37] LABS: Anion Gap 11 (12-20); Blood Urea Nitrogen 35 mg/dL (9-16); Calcium 9.6 mg/dL (8.4-10.2); Carbon Dioxide 26 mmol/L (22-29); Chloride 103 mmol/L (96-108); Estimated Glomerular Filt Rate 55; Potassium 4.2 mmol/L (3.3-5.1); Sodium 136 mmol/L (135-145)
== END 2024-10-28 07:17 | disposition home or self-care (01) ==
LOC: HO.MMNH1L 07:16
PROVIDERS: Visit Provider Physician Assistant Medical
DX: J96.21 Acute and chronic respiratory failure with hypoxia (principal); E11.9 Type 2 diabetes mellitus without complications; Z43.0 Encounter for attention to tracheostomy
CPT/HCPCS: 36415; 80048; 83036; 85025

== ENCOUNTER 2024-10-31 05:52 | Outpatient (REF) | payer MEDICAID, SELFPAY ==
--- OUTSIDE RECORDS SUMMARY | 2024-10-31 05:56 | XMS_ITS | Clinical Summary ---
Author Organization 175 [facility] Address [address] [place] [address] Phone Care Team Providers Care Fiber Optic Assembler Name Role Phone Shell Lopez MD Primary Care Provider [phone] Allergies Active Allergy Reactions Criticality Noted Date Comments Clonazepam 11/16/2023 Quetiapine 11/16/2023 Trazodone 11/16/2023 Medications povidone-iodine (Betadine) 10 % topical solution Apply topically 1 (one) time each day. 473 mL 5 Active povidone-iodine (Betadine) 10 % topical solution Apply topically 1 (one) time each day. 473 mL 5 Active Active Problems Problem Noted Date Diagnosed Date T2DM (type 2 diabetes mellitus) (CMS/[facility] V24, CM S/[facility] V28) 11/14/2023 Social History Tobacco [...] topic Insurance [place] - [place] Care Teams Fiber Optic Assembler Relationship Specialty Start Date End Date Shell Lopez MD [address] [place] [phone] PCP - General 08/16/23
[2024-10-31 06:22] LABS: Lithium 0.58 mmol/L (0.60-1.20)
== END 2024-10-31 05:53 | disposition home or self-care (01) ==
LOC: HO.MMNH1L 05:52
PROVIDERS: Visit Provider Physician Assistant Medical
DX: J96.00 Acute respiratory failure, unspecified whether with hypoxia or hypercapnia (principal); E11.9 Type 2 diabetes mellitus without complications; F20.9 Schizophrenia, unspecified
CPT/HCPCS: 36415; 80178

== ENCOUNTER 2024-11-04 06:23 | Outpatient (REF) | payer MEDICAID, SELFPAY ==
[2024-11-04 06:06] LABS: MANUAL DIFF FLAG NO
[2024-11-04 06:13] LABS: Hematocrit 28.1 % (42.0-52.0); Hemoglobin 8.9 g/dl (14.0-18.0); Imm Gran Abs Auto 0.09 X10*3/uL (0.00-0.03); Imm Gran Pct Auto 0.8 % (0.0-0.4); Lymphocytes Absolute Auto 2.0 X10*3/uL (1.2-4.9); Mean Corpuscular HGB Conc 31.7 g/dl (31.0-36.0); Mean Corpuscular Hemoglobin 29.3 pg (27.0-33.0); Mean Corpuscular Volume 92.4 fL (80.0-98.0); NRBC Abs Auto 0.000 X10*3/uL (0.0-0.012); NRBC Pct Auto 0.0 /100WBC (0.0-0.2); Platelet Count 240 X10*3/uL (160-400); Red Blood Count 3.04 X10*6/uL (4.60-5.80); White Blood Count 10.6 X10*3/uL (4.8-10.8)
[2024-11-04 06:24] LABS: Anion Gap 12 (12-20); Blood Urea Nitrogen 32 mg/dL (9-16); Calcium 9.3 mg/dL (8.4-10.2); Carbon Dioxide 26 mmol/L (22-29); Chloride 109 mmol/L (96-108); Estimated Glomerular Filt Rate > 60; Potassium 4.3 mmol/L (3.3-5.1); Sodium 143 mmol/L (135-145)
--- OUTSIDE RECORDS SUMMARY | 2024-11-04 06:27 | XMS_ITS | Clinical Summary ---
Author Organization 175 [facility] Address [address] [place] [address] Phone Care Team Providers Care Manager Mobility Name Role Phone Shell Lopez MD Primary Care Provider [phone] Allergies Active Allergy Reactions Criticality Noted Date Comments Clonazepam 11/16/2023 Quetiapine 11/16/2023 Trazodone 11/16/2023 Medications povidone-iodine (Betadine) 10 % topical solution Apply topically 1 (one) time each day. 473 mL 5 Active povidone-iodine (Betadine) 10 % topical solution Apply topically 1 (one) time each day. 473 mL 5 Active Active Problems Problem Noted Date Diagnosed Date T2DM (type 2 diabetes mellitus) (CMS/[facility] V24, CM S/[facility] V28) 11/14/2023 Social History Tobacco Use [...] topic Insurance [place] - [place] Care Teams Manager Mobility Relationship Specialty Start Date End Date Shell Lopez MD [address] [place] [phone] PCP - General 08/16/23
== END 2024-11-04 06:24 | disposition home or self-care (01) ==
LOC: HO.MMNH1L 06:23
PROVIDERS: Visit Provider Physician Assistant Medical
DX: Z43.0 Encounter for attention to tracheostomy (principal); J96.21 Acute and chronic respiratory failure with hypoxia; E43 Unspecified severe protein-calorie malnutrition
CPT/HCPCS: 36415; 80048; 85025

== ENCOUNTER 2024-11-11 06:46 | Outpatient (REF) | payer MEDICAID, SELFPAY ==
[2024-11-11 06:33] LABS: MANUAL DIFF FLAG NO
[2024-11-11 06:48] LABS: Hematocrit 27.2 % (42.0-52.0); Hemoglobin 9.0 g/dl (14.0-18.0); Imm Gran Abs Auto 0.07 X10*3/uL (0.00-0.03); Imm Gran Pct Auto 0.6 % (0.0-0.4); Lymphocytes Absolute Auto 1.7 X10*3/uL (1.2-4.9); Mean Corpuscular HGB Conc 33.1 g/dl (31.0-36.0); Mean Corpuscular Hemoglobin 29.9 pg (27.0-33.0); Mean Corpuscular Volume 90.4 fL (80.0-98.0); NRBC Abs Auto 0.000 X10*3/uL (0.0-0.012); NRBC Pct Auto 0.0 /100WBC (0.0-0.2); Platelet Count 245 X10*3/uL (160-400); Red Blood Count 3.01 X10*6/uL (4.60-5.80); White Blood Count 11.1 X10*3/uL (4.8-10.8)
[2024-11-11 07:03] LABS: Anion Gap 11 (12-20); Blood Urea Nitrogen 34 mg/dL (9-16); Calcium 9.2 mg/dL (8.4-10.2); Carbon Dioxide 25 mmol/L (22-29); Chloride 106 mmol/L (96-108); Estimated Glomerular Filt Rate > 60; Potassium 4.2 mmol/L (3.3-5.1); Sodium 138 mmol/L (135-145)
--- OUTSIDE RECORDS SUMMARY | 2024-11-11 07:06 | XMS_ITS | Clinical Summary ---
Author Organization 175 [facility] Address [address] [place] [address] Phone Care Team Providers Care Home Theater Expert Name Role Phone Shell Lopez MD Primary Care Provider [phone] Allergies Active Allergy Reactions Criticality Noted Date Comments Clonazepam 11/16/2023 Quetiapine 11/16/2023 Trazodone 11/16/2023 Medications povidone-iodine (Betadine) 10 % topical solution Apply topically 1 (one) time each day. 473 mL 5 Active povidone-iodine (Betadine) 10 % topical solution Apply topically 1 (one) time each day. 473 mL 5 Active Active Problems Problem Noted Date Diagnosed Date T2DM (type 2 diabetes mellitus) ([facility] V24, CM S/[facility] V28) 11/14/2023 Social History Tobacco Use [...] topic Insurance [place] - [place] Care Teams Home Theater Expert Relationship Specialty Start Date End Date Shell Lopez MD [address] [place] [phone] PCP - General 08/16/23
== END 2024-11-11 06:47 | disposition home or self-care (01) ==
LOC: HO.MMNH1L 06:46
PROVIDERS: Visit Provider Nurse Practitioner Family
DX: J96.21 Acute and chronic respiratory failure with hypoxia (principal); E43 Unspecified severe protein-calorie malnutrition; Z43.0 Encounter for attention to tracheostomy
CPT/HCPCS: 36415; 80048; 85025

== ENCOUNTER 2024-11-13 03:06 | Emergency (ER) | payer MEDICAID, SELFPAY ==
[2024-11-13] VITALS (9 sets, daily range): BP systolic 99–131; BP diastolic 54–77; PULSE 71–91; RESP 20–41; TEMP 34–37; O2SAT 62–100; BMI 22.5
--- NOTE | 2024-11-13 | ECG_ITS ---
Test Reason : SOB Blood Pressure : */* mmHG Vent. Rate : 90 BPM Atrial Rate : 90 BPM P-R Int : 166 ms QRS Dur : 144 ms QT Int : 432 ms P-R-T Axes : 40 -32 28 degrees QTcB Int : 528 ms Normal sinus rhythm Left axis deviation Right bundle branch block Septal infarct , age undetermined Abnormal ECG When compared with ECG of 08-Feb-2024 00:17, Septal infarct is now Present Referred By: Manda Bal Electronically Signed By: NADJA FRANCISCO MD
--- NOTE | ~2024-11-13 | XR_ITS ---
CLINICAL HISTORY: sob 1 view chest x-ray. Comparison: CT/SR - CT CHEST W IV CON - 07/30/24 19:12 EDT CR/SR - XR CHEST 1V - 07/30/24 12:30 EDT Findings: Tracheostomy tube in place at the midline above the shlomo. Interstitial prominence identified within the bilateral lungs with more focal consolidation of the right lung base. Moderate blunting of the right costophrenic angle. There is minimal blunting of the left costophrenic angle. No pneumothorax. Heart size is borderline enlarged. Impression: 1. Borderline cardiomegaly with interstitial prominence throughout the bilateral lungs, possibly related to pulmonary edema. There appears to be a moderate right pleural effusion with underlying right basilar atelectasis and/or infiltrates. 2. Possible minimal left pleural effusion. This document has been electronically signed by: Arun De La Torre MD on 11/13/2024 04:13:30
--- NOTE | 2024-11-13 03:10 | PC.NURSE ---
PT MIK from [facility], Per EMS pt was 58% SpO2 at the facility[facility] 62% SpO2, Pt is alert to verbal stimuli 0551: PT became hypoxic with SpO2 75%, Pt currently being BVM, aware, respiratory at bedside 0600: Sin placed 16Fr temp sensing 0605: Pt started to become increasely more hypoxic to 75%, BVM started again 0620: Pt placed on Vent, trach changed to Cuffed trach, Pt still responsive to verbal stimuli
--- NOTE | 2024-11-13 03:18 | ED.SOB ---
HPI - SOB/Dyspnea General Chief Complaint: Dyspnea Stated Complaint: SOB Time Seen by Provider: 11/13/24 03:16 Source: EMS, RN notes reviewed, old records reviewed and airport maintenance chief Mode of arrival: EMS Limitations: altered mental status and physical limitation (Tracheostomy, nonverbal at baseline) History of Present Illness ED Provider: Dr. Manda Bal HPI Narrative: 58-year-old male presenting via EMS from the nursing facility where he is currently a resident with reported hypoxic respiratory failure. Patient has a tracheostomy in place. EMS reports they are called for oxygen level in the 60s, they found him to have a room air oxygen saturation of 58 percent. He was placed on a non-rebreather, oxygen only came up to about 70. EMS reports difficult time getting history from [facility]. It appears that this event was acute tonight however no further information is able to be obtained. He has a history of HIV, hepatitis-C, DM, GERD, HLD, schizophrenia, chronic thrombocytopenia, trach dependence for unknown reason. Related Data Home Medications ?Medication ?Instructions ?Recorded ?Confirmed benztropine 2 mg tablet 2 mg PO BID 02/16/21 02/08/24 elviteg 150 mg-cob 150 mg-emtricit 1 tab PO DAILY 02/16/21 02/08/24 200 mg-tenofo alafenam 10 mg tablet (Genvoya) lithium carbonate 300 mg tablet 900 mg PO DAILY 02/16/21 02/08/24 pravastatin 40 mg tablet 40 mg PO BEDTIME 02/16/21 02/08/24 propranolol 20 mg tablet 20 mg PO DAILY 02/16/21 02/08/24 risperidone 3 mg tablet 6 mg PO BEDTIME 02/16/21 02/08/24 insulin aspar prot-insulin aspart 15 unit subcut DAILY@0900 03/05/21 02/08/24 100 unit/mL (70-30) subcutaneous pen (Novolog Mix 70-30FlexPen U-100) omeprazole 20 mg capsule,delayed 20 mg PO DAILY@0630 03/05/21 02/08/24 release polyethylene glycol 3350 17 17 g PO DAILY 09/02/21 02/08/24 gram/dose oral powder (Gavilax) insulin aspar prot-insulin aspart 17 unit subcut DAILY@2100 01/01/22 02/08/24 100 unit/mL (70-30) subcutaneous pen (Novolog Mix 70-30FlexPen U-100) risperidone 2 mg tablet 2 mg PO DAILY@0900 01/01/22 02/08/24 sennosides 8.6 mg tablet (senna) 17.2 mg PO DAILY@0900 01/01/22 02/08/24 docusate sodium 100 mg capsule 100 mg PO BID 02/08/24 02/08/24 insulin glargine 100 unit/mL (3 30 unit subcut BEDTIME 02/08/24 02/08/24 mL) subcutaneous pen (Lantus Solostar U-100 Insulin) Previous Rx's ?Medication ?Instructions ?Recorded walker (Ultra-Light Rollator misc) #1 ea 01/24/22 azithromycin 250 mg tablet 250 mg PO DAILY 3 days #3 tabs 02/09/24 benzonatate 100 mg capsule 100 mg PO TID PRN cough #20 caps 02/09/24 finasteride 5 mg tablet 5 mg PO DAILY 90 days #90 tabs 04/09/24 tamsulosin 0.4 mg capsule 0.4 mg PO BEDTIME 90 days #90 caps 04/09/24 amoxicillin 875 mg-potassium 1 tab PO Q12H #14 tabs 07/30/24 clavulanate 125 mg tablet Allergies Allergy/AdvReac Type Severity Reaction Status Date / Time acetaminophen (From TYLENOL) Allergy Unknown UNKNOWN Verified 11/13/24 03:22 aspirin (ASA) Allergy Unknown AGITATION Verified 11/13/24 03:22 chlorpromazine (From Allergy Unknown Verified 11/13/24 03:22 Thorazine) clonazepam (From Klonopin) Allergy Rash Verified 11/13/24 03:22 trazodone (TRAZODONE) AdvReac Unknown HYPER Verified 11/13/24 03:22 Review of Systems Review of Systems: Yes Unobtainable due to mental condition PMFSH Past Medical History Medical History Diabetes Mood disorder Elevated C-reactive protein (CRP) Elevated erythrocyte sedimentation rate Enterococcal bacteremia Callus of foot Eschar of foot Diabetic foot ulcers Sepsis Osteomyelitis of left foot Open wnd foot-complicated HIV (human immunodeficiency virus infection) Hepatitis Chronic prostatitis Erectile dysfunction due to arterial insufficiency BPH w urinary obs/LUTS Urinary hesitancy Surgical History No pertinent past surgical history Family History Family History Father No problems noted. Mother No problems noted. Social History Social History Household Members: Family Household Members Other:: snf Housing: House Housing Other:: assisted Do you presently have visiting nurse or other home services: No Unable to assess alcohol history related to: Unable to respond Alcohol intake: never Comment: RIGHT BKA Patient Tobacco Use Status: Current everyday Tobacco user Tobacco use type: Cigarette Cigarette Packs Per Day: 1 Cigarettes Per Day: 20.0 Second Hand Smoke Exposure: Yes Use of substances other than those prescribed or required for medical reasons: Unable to respond Advance Directives: Yes Advance Directives Information Provided: Yes Advance Directives on File: No Do you have a plan to hurt others: No Plan service: No Current occupational status: unemployed Physical Exam Exam: Exam: GENERAL: Ill-appearing, moderate respiratory distress, cachectic, cyanotic. SKIN: Cyanosis, warm, dry, no rashes noted. HEENT:? Normocephalic, atraumatic, no stridor, EOMI. NECK: Soft, supple, full ROM, midline structures nontender, no step-offs, no deformities, no lymphadenopathy, tracheostomy in place without any exudates coming from the trach. CHEST: Heart regular tachycardia, symmetric chest rise and fall. PULMONARY: Tachypnea, poor air movement bilaterally, moderate respiratory distress. ABDOMINAL: Soft, quiet bowel sounds in all quadrants. : Deferred. MUSCULOSKELETAL: Hypotonic in all extremities, multiple amputations of the lower extremities, no peripheral edema. NEURO: Alert, CN II through XII intact, no focal neurologic deficits.? PSYCHIATRIC: Flat affect, appropriate demeanor. Vital Signs: Vital Signs: Last Vital Signs Temp 98.6 F 11/13/24 03:19 Pulse 71 11/13/24 08:21 Resp 22 H 11/13/24 08:21 BP 105/64 11/13/24 08:21 Pulse Ox 100 11/13/24 08:21 O2 Del Method Mechanical Ventil ation 11/13/24 06:43 O2 Flow Rate 11/13/24 04:42 FiO2 30 11/13/24 06:44 Oxygen Flow Rate 15 11/13/24 03:09 BMI result Body Mass Index 22.5 Course Reevaluation(s) Time: 06:38 Reevaluation #2: 6:38 AM 11/13/2024 (Dr. Dm Hackett): I, Dr. Hackett have take over the care of this patient, I reviewed pertinent blood work and imaging, re-evaluated the patient when appropriate. We will continue to monitor patient pending transfer to [facility], reviewed his workup blood work re-evaluated the patient Time: 09:06 Reevaluation #3: Patient transferred out Medications Administered Discontinued Medications Generic Name Dose Route Start Last Admin Trade Name Freq PRN Reason Stop Dose Admin Albuterol/Ipratropium 3 ml 11/13/24 03:37 11/13/24 04:11 Albuterol/Iprat 2.5/0.5mg 3 Ml Ampul.Neb INHALE 11/13/24 03:38 3 ml ONCE ONE Administration Dextrose 12.5 gm 11/13/24 03:59 11/13/24 04:35 Dextrose 50 % 25 Gm/50 Ml Syringe IVPUSH 11/13/24 04:00 12.5 gm ONCE ONE Administration Furosemide 40 mg 11/13/24 05:39 11/13/24 05:44 Furosemide 40 Mg/4 Ml Vial IVPUSH 11/13/24 05:40 40 mg ONCE ONE Administration Protocol Vancomycin HCl 1,500 mg/ 500 mls @ 333.333 mls/hr 11/13/24 03:50 11/13/24 06:41 Sodium Chloride IV 11/13/24 05:19 Infused ONCE ONE Infusion Cefepime HCl 2 gm in 50 mls @ 100 mls/hr 11/13/24 03:50 11/13/24 05:40 Maxipime IV 11/13/24 04:19 Infused ONCE ONE Infusion Lactated Ringer's 1,725 mls @ 1,725 mls/hr 11/13/24 03:55 11/13/24 05:41 Lr 30 ml/kg infuse over 1 hr (1725 ml) 11/13/24 04:54 Infused IV Infusion .Q1H ONE Calcium Gluconate 1 gm in 50 mls @ 200 mls/hr 11/13/24 03:59 11/13/24 04:40 Calcium Gluconate IV 11/13/24 04:13 Infused ONCE ONE Infusion Insulin Human Regular 5 unit 11/13/24 03:59 11/13/24 04:32 Insulin Regular, Human 100 Unit/Ml 10 Ml Vial IVPUSH 11/13/24 04:00 5 unit ONCE ONE Administration Medical Decision Making Medical Decision Making MDM Narrative: Patient presents in respiratory distress. Differential diagnosis includes tracheostomy complication, mucus plugging, flash pulmonary edema, COPD exacerbation, pneumothorax, pneumonia, ACS, pulmonary embolism, metabolic acidosis, among many others. The serious nature of the patient's symptoms makes this presentation complex, with potential for significant, worsening morbidity and mortality without immediate treatment/intervention. Initial EKGs are nonischemic. He has a right bundle branch block which is old. Patient initially required high-flow oxygen which improved his oxygen saturation significantly. Placed on a trach tent. Suctioned several times by Respiratory therapy without any real output. Her initial blood gas shows a mixed respiratory and metabolic acidosis. Very mild acidosis of 7.31. Patient has no known history of CHF. His chest x-ray is showing a right-sided pleural effusion with underlying infiltrate, patchy bilateral infiltrates. Probable sepsis. We will initiate a 30 cc/kg fluid bolus. He does not have history of CHF that I am aware of. Hyperkalemia of 5.8. Medicated with insulin, glucose, albuterol treatment and IV fluid. 6:02 AM 11/13/2024 (Dr. Manda Bal, D.O.) patient with acute-onset diaphoresis, sudden drop in his oxygen levels down to 42 percent. Had to be bagged up with a BVM. Oxygenation improved substantially after bagging on 100% FiO2. He does not have a cuffed trach in place so we will switch his trach to a cuffed trach. I feel that he will need ventilatory assistance. Probably had flash pulmonary edema in the setting of IV fluid administration for sepsis. The patient as far as I can tell has no history heart failure though. Bedside ultrasound shows some lateral wall motion abnormality. There is no EKG change today. He had a right bundle branch block when he initially got here and continues to have a right bundle branch block without evidence of ST elevation or depression. Patient is unable to describe chest pain. He does follow commands. Given 40 of IV Lasix. Placed on positive pressure ventilation. He will need ICU placement. We do not have ICU beds at this time. 7:02 AM 11/13/2024 (Dr. Manda Bal, Maria Alejandra.O.) case discussed with [facility] transfer center, ICU will accept patient for transfer, Dr. Swift. Awaiting bed availability. Patient will be transferred via ALS. Patient's sister, JERILYN, has been updated on the situation. Differential Diagnosis Differential Diagnoses: The differential diagnosis associated with the presentation includes (As above) Admission/Observation Consideration of admission/observation: Escalation of care including admission/observation considered Consult Healthcare Provider Management of the patient was discussed with: Project Admin (tub puller) Lab Data MDM Lab Attestation statement: I reviewed the patient's lab results. 11/13/24 03:26 11/13/24 03:26 Labs: Lab Results 11/13/24 11/13/24 11/13/24 Range/Units 03:26 03:32 05:55 WBC 12.5 H (4.8-10.8) X10*3/uL RBC 3.61 L (4.60-5.80) X10*6/uL Hgb 10.7 L (14.0-18.0) g/dl Hct 32.9 L D (42.0-52.0) % MCV 91.1 (80.0-98.0) fL MCH 29.6 (27.0-33.0) pg MCHC 32.5 (31.0-36.0) g/dl RDW 14.4 (11.0-16.0) % Plt Count 263 (160-400) X10*3/uL MPV 10.4 (9.4-12.4) fL Immature Gran % (Auto) 0.7 H (0.0-0.4) % Neut % (Auto) 66.0 (45-73) % Lymph % (Auto) 23.8 (20-40) % [place] % (Auto) 7.9 (2-11) % Eos % (Auto) 1.3 (0-4) % Baso % (Auto) 0.3 (0-2) % Lymph # (Auto) 3.0 (1.2-4.9) X10*3/uL [place] # (Auto) 1.0 (0.1-1.2) X10*3/uL Eos # (Auto) 0.2 (0.0-0.4) X10*3/uL Baso # (Auto) 0.0 (0.0-0.2) X10*3/uL Abs Immat Gran (auto) 0.09 H (0.00-0.03) X10*3/uL Absolute Neuts (auto) 8.2 (2.0-8.3) x10*3/uL Absolute Nucleated RBC 0.000 (0.0-0.012) X10*3/uL Nucleated RBC % (auto) 0.0 (0.0-0.2) /100WBC PT 12.5 H (10.9-12.4) SEC INR 1.1 (0.9-1.1) VBG pH 7.31 L (7.32-7.43) VBG pCO2 46 mmHg VBG pO2 45 mmHg VBG HCO3 23 (22-26) mmol/L VBG O2 Saturation 64.0 % VBG Base Excess -2.4 mmol/L Sodium 138 (135-145) mmol/L Potassium 5.8 H D (3.3-5.1) mmol/L Chloride 106 (96-108) mmol/L Carbon Dioxide 20 L (22-29) mmol/L Anion Gap 18 (12-20) BUN 36 H (9-16) mg/dL Creatinine 1.41 H (0.5-1.4) mg/dL Estim Creat Clear Calc 45.3 Estimated GFR 51 POC Glucose 224 H (60-115) mg/dL Random Glucose 285 H (60-115) mg/dL Lactic Acid 1.9 (0.5-2.0) mmol/L Calcium 9.6 (8.4-10.2) mg/dL Magnesium 2.8 H (1.6-2.6) mg/dL Total Bilirubin 0.3 (0.0-1.0) mg/dL AST 44 H (5-37) U/L ALT 19 (0-40) U/L Alkaline Phosphatase 104 (39-117) U/L Troponin I High Sens (<3.5-35.0) ng/L NT-Pro-B Natriuret Pep 70290.1 H (<300) pg/mL Total Protein 8.0 (6.5-8.0) g/dL Albumin 3.9 (3.5-5.0) g/dL Influenza Type A (PCR) NEGATIVE (Negative) Influenza Type B (PCR) NEGATIVE (Negative) RSV RNA Qual (PCR) NEGATIVE (Negative) SARS-CoV-2 RNA (RT-PCR) NEGATIVE (Negative) 11/13/24 11/13/24 Range/Units 06:27 08:02 WBC (4.8-10.8) X10*3/uL RBC (4.60-5.80) X10*6/uL Hgb (14.0-18.0) g/dl Hct (42.0-52.0) % MCV (80.0-98.0) fL MCH (27.0-33.0) pg MCHC (31.0-36.0) g/dl RDW (11.0-16.0) % Plt Count (160-400) X10*3/uL MPV (9.4-12.4) fL Immature Gran % (Auto) (0.0-0.4) % Neut % (Auto) (45-73) % Lymph % (Auto) (20-40) % [place] % (Auto) (2-11) % Eos % (Auto) (0-4) % Baso % (Auto) (0-2) % Lymph # (Auto) (1.2-4.9) X10*3/uL [place] # (Auto) (0.1-1.2) X10*3/uL Eos # (Auto) (0.0-0.4) X10*3/uL Baso # (Auto) (0.0-0.2) X10*3/uL Abs Immat Gran (auto) (0.00-0.03) X10*3/uL Absolute Neuts (auto) (2.0-8.3) x10*3/uL Absolute Nucleated RBC (0.0-0.012) X10*3/uL Nucleated RBC % (auto) (0.0-0.2) /100WBC PT (10.9-12.4) SEC INR (0.9-1.1) VBG pH 7.38 (7.32-7.43) VBG pCO2 28 mmHg VBG pO2 159 mmHg VBG HCO3 16 L (22-26) mmol/L VBG O2 Saturation 100.0 % VBG Base Excess -6.9 mmol/L Sodium (135-145) mmol/L Potassium (3.3-5.1) mmol/L Chloride (96-108) mmol/L Carbon Dioxide (22-29) mmol/L Anion Gap (12-20) BUN (9-16) mg/dL Creatinine (0.5-1.4) mg/dL Estim Creat Clear Calc Estimated GFR POC Glucose (60-115) mg/dL Random Glucose (60-115) mg/dL Lactic Acid (0.5-2.0) mmol/L Calcium (8.4-10.2) mg/dL Magnesium (1.6-2.6) mg/dL Total Bilirubin (0.0-1.0) mg/dL AST (5-37) U/L ALT (0-40) U/L Alkaline Phosphatase (39-117) U/L Troponin I High Sens 36.1 H D (<3.5-35.0) ng/L NT-Pro-B Natriuret Pep (<300) pg/mL Total Protein (6.5-8.0) g/dL Albumin (3.5-5.0) g/dL Influenza Type A (PCR) (Negative) Influenza Type B (PCR) (Negative) RSV RNA Qual (PCR) (Negative) SARS-CoV-2 RNA (RT-PCR) (Negative) ABG Data Attestation ABG: I personally reviewed and interpreted this ABG as follows: Interpretation: Mixed respiratory and metabolic acidosis Independent Interpretation I performed an independent interpretation of an: EKG Interpretation: 3:19 a.m. My independent interpretation of the ECG reveals normal sinus rhythm with rate of 90, leftward axis, right bundle branch block, QTC 531, no ST elevations or depressions to suggest ischemic changes, relatively unchanged from previous on 02/08/2024. Radiology Impression Discussion of test interpretation with radiology: I have reviewed the radiologist's reading. Radiologist Impression: 1 view chest x-ray. Comparison: CT/SR - CT CHEST W IV CON - 07/30/24 19:12 EDT CR/SR - XR CHEST 1V - 07/30/24 12:30 EDT Findings: Tracheostomy tube in place at the midline above the shlomo. Interstitial prominence identified within the bilateral lungs with more focal consolidation of the right lung base. Moderate blunting of the right costophrenic angle. There is minimal blunting of the left costophrenic angle. No pneumothorax. Heart size is borderline enlarged. Impression: 1. Borderline cardiomegaly with interstitial prominence throughout the bilateral lungs, possibly related to pulmonary edema. There appears to be a moderate right pleural effusion with underlying right basilar atelectasis and/or infiltrates. 2. Possible minimal left pleural effusion. This document has been electronically signed by: Arun De La Torre MD on 11/13/2024 04:13:30 Independent Historian Clinical information obtained from an independent historian. History obtained from or confirmed by: EMS and Other (SNF) External Record Review External record reviewed: Inpatient record Chronic Conditions Patient?s care impacted by: Diabetes and Other (HIV) Social Determinants Patient?s care significantly limited by Social Determinants of Health including: Problems related to primary support group and Other Social Determinant of Health Procedures Intubation Intubation Type:: Tracheostomy Tube Insertion Intubation Date:: 11/13/24 Intubation Time:: 06:14 Time out performed: Yes sedative: none ET Tube Size: 7.5 ET Tube Uncuffed: Yes Tube Secured Location: other (Secured at the skin) Tube Placement Confirmation: equal breath sounds bilaterally Patient Tolerated Procedure: well Intubation Complications: none Critical Care Time Critical Care Time Critical Care Time: Yes Total Critical Care Time: 60 Attestation: CRITICAL CARE TIME: 60 minutes of critical care time was spent in direct patient care at the bedside or in the immediate area with this patient. Critical care was necessary to treat or prevent imminent or life-threatening deterioration of the following conditions acute hypoxic respiratory failure due to pneumonia, flash pulmonary edema. This patient is high risk for decompensation and/or . This time was spent assessing and managing the patient, interpreting labs and imaging, coordinating care with other medical providers, gathering history from either the patient, their representatives, EMS or chart review, and discussing management with [admitting team/ICU/transfer center]. Discharge Plan Discharge Clinical Impression: Acute hypoxemic respiratory failure, Tracheostomy dependence, Pleural effusion on right, Flash pulmonary edema, Bilateral pneumonia, Acute hyperkalemia, LYNETTE (acute kidney injury) Patient Disposition: [facility] Transfer Details: [facility] [place] Dr. Swift accepting Additional Instructions: [facility] ROOM ASSIGNMENT: [facility] 4B ROOM 10 Prescriptions: No Action omeprazole 20 mg capsule,delayed release(DR/EC) 20 mg PO DAILY@0630 insulin asp prt-insulin aspart [Novolog Mix 70-30FlexPen U-100] 100 unit/mL (70-30) insulin pen 15 unit subcut DAILY@0900 sennosides [senna] 8.6 mg tablet 17.2 mg PO DAILY@0900 risperidone 2 mg tablet 2 mg PO DAILY@0900 insulin asp prt-insulin aspart [Novolog Mix 70-30FlexPen U-100] 100 unit/mL (70-30) insulin pen 17 unit subcut DAILY@2100 (DME) Ultra-Light Rollator Misc See Rx Instructions .Route Qty: 1 0RF Rx Instructions: As directed docusate sodium 100 mg capsule 100 mg PO BID insulin glargine [Lantus Solostar U-100 Insulin] 100 unit/mL (3 mL) insulin pen 30 unit subcut BEDTIME azithromycin 250 mg tablet 250 mg PO DAILY 3 Days Qty: 3 0RF benzonatate 100 mg capsule 100 mg PO TID PRN (Reason: cough) Qty: 20 0RF amoxicillin-pot clavulanate 875-125 mg tablet 1 tab PO Q12H Qty: 14 0RF Genvoya [phone] mg tablet 1 tab PO DAILY pravastatin 40 mg tablet 40 mg PO BEDTIME lithium carbonate 300 mg tablet 900 mg PO DAILY propranolol 20 mg tablet 20 mg PO DAILY risperidone 3 mg tablet 6 mg PO BEDTIME benztropine 2 mg tablet 2 mg PO BID polyethylene glycol 3350 [Gavilax] 17 gram/dose powder 17 g PO DAILY tamsulosin 0.4 mg capsule 0.4 mg PO BEDTIME 90 Days Qty: 90 3RF finasteride 5 mg tablet 5 mg PO DAILY 90 Days Qty: 90 3RF Referrals: [facility] [Outside] Owen Kelley MD [Primary Care Provider, Family Practice] Print Language: Unable To Collect
[2024-11-13 03:33] LABS: MANUAL DIFF FLAG NO
[2024-11-13 03:34] LABS: Venous Blood Gas Refer to POC result
[2024-11-13 03:34] LABS: Hematocrit 32.9 % (42.0-52.0); Hemoglobin 10.7 g/dl (14.0-18.0); Imm Gran Abs Auto 0.09 X10*3/uL (0.00-0.03); Imm Gran Pct Auto 0.7 % (0.0-0.4); Lymphocytes Absolute Auto 3.0 X10*3/uL (1.2-4.9); Mean Corpuscular HGB Conc 32.5 g/dl (31.0-36.0); Mean Corpuscular Hemoglobin 29.6 pg (27.0-33.0); Mean Corpuscular Volume 91.1 fL (80.0-98.0); NRBC Abs Auto 0.000 X10*3/uL (0.0-0.012); NRBC Pct Auto 0.0 /100WBC (0.0-0.2); Platelet Count 263 X10*3/uL (160-400); Red Blood Count 3.61 X10*6/uL (4.60-5.80); White Blood Count 12.5 X10*3/uL (4.8-10.8)
[2024-11-13 03:36] LABS: VBG HCO3 23 mmol/L (22-26); VBG O2 % Saturation 64.0 %
[2024-11-13 03:47] LABS: Alanine Aminotransferase 19 U/L (0-40); Albumin Level 3.9 g/dL (3.5-5.0); Alkaline Phosphatase 104 U/L (39-117); Anion Gap 18 (12-20); Aspartate Amino Transferase 44 U/L (5-37); Blood Urea Nitrogen 36 mg/dL (9-16); Calcium 9.6 mg/dL (8.4-10.2); Carbon Dioxide 20 mmol/L (22-29); Chloride 106 mmol/L (96-108); Creatinine Clr Calc Pharmacy 45.3; Estimated Glomerular Filt Rate 51; Magnesium 2.8 mg/dL (1.6-2.6); Potassium 5.8 mmol/L (3.3-5.1); Sodium 138 mmol/L (135-145); Total Protein 8.0 g/dL (6.5-8.0)
[2024-11-13 03:52] LABS: NT Pro B Type Natriuretic Pept 10455.1 pg/mL (<300)
[2024-11-13 04:04] LABS: INTERNATIONAL NORM RATIO 1.1 (0.9-1.1); Prothrombin Time 12.5 SEC (10.9-12.4)
[2024-11-13 04:11] LABS: Resp Syncy Virus RNA Qual PCR NEGATIVE (Negative); SARS COV2 PCR INHOUSE NEGATIVE (Negative)
[2024-11-13] MEDS: Albuterol/Iprat 2.5/0.5MG 3 ML AMPUL.NEB INHALE (04:11)
--- OUTSIDE RECORDS SUMMARY | 2024-11-13 04:14 | XMS_ITS | Clinical Summary ---
Author Organization [facility] Address [address] [place] [address] Phone Care Team Providers Care Global Human Resources Director Name Role Phone Shell Lopez MD Primary Care Provider [phone] Allergies Active Allergy Reactions Criticality Noted Date Comments Clonazepam 11/16/2023 Quetiapine 11/16/2023 Trazodone 11/16/2023 Medications povidone-iodine (Betadine) 10 % topical solution Apply topically 1 (one) time each day. 473 mL 5 Active povidone-iodine (Betadine) 10 % topical solution Apply topically 1 (one) time each day. 473 mL 5 Active Active Problems Problem Noted Date Diagnosed Date T2DM (type 2 diabetes mellitus) ([facility] V24, [facility] V28) 11/14/2023 Social History Tobacco Use [...] topic Insurance MEDICAID - [place] Care Teams Global Human Resources Director Relationship Specialty Start Date End Date Shell Lopez MD [address] [place] [phone] PCP - General 08/16/23
--- OUTSIDE RECORDS SUMMARY | 2024-11-13 04:14 | XMS_ITS ---
Author Organization [facility] Care Team Providers Care Beam Sealer Name Role Phone Kelvin Radha Unavailable Unavailable Danilo Ocasio Unavailable Unavailable Owen Kelley Unavailable Unavailable Allergies and adverse reactions Code CodeSystem Substance Reaction Severity StartDate Concern Status 64646 RXNORM traZODone Unknown 10/15/2024 active 1831453 RXNORM Influenza Vaccine Live Pneumonia and influenza (code- [id number], SNOMED CT) Unknown 10/15/2024 active 1191 RXNORM Aspirin Unknown 10/15/2024 active Care Team Name Role Address Phone Organization Dates Owen Warren PCP [address] [place] [address], [facility] (Office): : [facility] 10/15/2024 - present Radha Warren [address] [address], [facility] (Office): : [facility] 10/15/2024 - present Danilo Ocasio [address] [place] [address], [facility] (Office): : [facility] 10/15/2024 - present Encounters EncounterType Code CodeSystem Description Performer ServiceDe liveryLocation Date Ambulatory Encounter CPT Code = [address]133 [id number] [address] Acute on chronic hypoxemic respiratory failure Bert Locketty [facility] Address: [address] [place] [address]. 10/15 Ambulatory Encounter CPT Code = [id number] Patient encounter procedure Bert Rivera [facility] Address: [address] [place] [address]. 10/15 Ambulatory Encounter CPT Code = [address] Severe protein-calori e malnutrition (Cuevas: less than 60 percent of standard weight) Bert Watsonarthy [facility] Address: [address] [place] [address]. 10/15 Ambulatory Encounter CPT Code = [address] Schizophrenia Bert Rivera [facility] Address: [address] [place] [address]. 10/15 Ambulatory Encounter CPT Code = [address]36 [address] Congestive heart failure Bert Locketty [facility] Address: [address] [place] [address]. 10/15 Ambulatory Encounter CPT Code = [address] Type 2 diabetes mellitus without complication Bert Watsonarthy [facility] Address: [address] [place] [address]. 10/15 Ambulatory Encounter CPT Code = [address]32 [address] Cirrhosis of liver Bert Watsonarthy [facility] Address: [address] [place] [address]. 10/15 Ambulatory Encounter CPT Code = [address] Anoxic encephalopathy Bert Locketty [facility] Address: [address] [place] [address]. 10/15 Ambulatory Encounter CPT Code = [address] Acquired absence of organ Bert Miguel [facility] Address: [address] [place] [address]. 10/15 Ambulatory Encounter CPT Code = 23425 B20 ICD 10 HUMAN IMMUNODEFICIEN CY VIRUS [HIV] DISEASE Bert Rivera [facility] Address: [address] [place] [address]. 10/15 Ambulatory Encounter CPT Code = [address] Chronic hepatitis C Bert Rivera [facility] Address: [address] [place] [address]. 10/15 Ambulatory Encounter CPT Code = [address] Chronic kidney disease stage 2 Bert Rivera [facility] Address: [address] [place] [address]. 10/15 Ambulatory Encounter CPT Code = [address] Hyperlipidemia Bert Rivera [facility] Address: [address] [place] [address]. 10/15 Ambulatory Encounter CPT Code = [address] Essential hypertension Bert Rivera [facility] Address: [address] [place] [address]. 10/15 Ambulatory Encounter CPT Code = [address] Muscle atrophy Bert Rivera [facility] Address: [address] [place], [place] [address]. 10/15 Ambulatory Encounter CPT Code = [address] Imaging of lung Bert Rivera [facility] Address: [address] [place] [address]. 10/15 Ambulatory Encounter CPT Code = [address] Peripheral vascular disease Bert Rivera [facility] Address: [address] [place] [address]. 10/15 Ambulatory Encounter CPT Code = [address] Attention to gastrostomy Bert Rivera [facility] Address: [address] [place] [address]. 10/15 Ambulatory Encounter CPT Code = [address] Diffuse spasm of esophagus Bert Rivera [facility] Address: [address], [place], [address], [facility]. 10/15 Ambulatory Encounter CPT Code = [address] Benign prostatic hyperplasia Bert Rivera [facility] Address: [address] [place] [address], [place], [address], [facility]. 10/15 Goals Section Goals Description Status Target Date I plan to discharge to: Spec alfreda- To community alone, To Community with Family, [facility], LTC Placement, Other- Undecided at current time. Pending outcome of therapy sessions, clinical medical stability progress reviewed weekly. Active 01/31/2025 I will be able to communicat e adequately with my care team and to have my needs met through review date. Active 01/31/2025 I will be able to make basic needs known daily through the review date. Active 01/31/2025 I will be at reduced risk fo r adverse drug reactions through the review date. Active 01/31/2025 I will be at reduced risk fo r complications of self care performance deficit and impaired mobility daily through the review date. Active 01/31/2025 I will be at reduced risk fo r new or worsened impaired skin integrity daily through the review date. Active 01/31/2025 I will be free from discomfo rt or adverse side effects of diuretic therapy through the review date. Active 01/31/2025 I will be free from discomfo rt or adverse side effects related to anti-anxiety therapy through the review date. Active 02/01/20 I will be free from discomfo rt or adverse side effects related to anti-depressant therapy through the review date. Active 01/31 I will be free from discomfo rt or adverse side effects related to anti-psychotic therapy through the review date. Active 2024 I will be free from infection through the next r eview date. Active 01/31/2025 I will be free from s/sx of complications of cardiac problems through the review date. Active 01/31/2025 I will be free from s/sx of dehydration through next review date. Active 01/31/2025 I will be free from s/sx of liver complications and have symptoms that do arise managed effectively, including infection, abnormal or unexplained bleeding, malnutrition, anemia, cognitive decline or mental status changes through review date. Active 02/01/20 I will be free from s/sx of respiratory infection by/through the review date. Active 01/31/2025 I will be free of fall relat ed injury through the next review date. Active 01/31/2025 I will continue to be indepe ndent and pursue activities of interest through next review. Active 01/31/2025 I will effectively cope with my feelings of [Specify] through the review date. Active 01/31/2025 I will have an acceptable le jorge luis of comfort and be free from phantom pain through the review date. Active 01/31/2025 I will have no complications related to diabetes through the review date. Active 01/31/2025 I will have the risk of unin tentional decannulation mitigated through review date. Active 01/31/2025 I will improve current level of function in (SPECIFY: Bed Mobility, Transfers, Eating, Dressing, Toilet Use and Personal Hygiene, ADL Score) by the review date. Resident will be able to: (SPECIFY) Active 01/31/2025 I will maintain adequate nut ritional status as evidenced by maintaining weight within +/-5% of CBW, no s/sx of malnutrition, and consuming at least 51% of all meals daily and tolerating enteral feeding regimen through review date. Active I will maintain or improve m y independence and mobility through review date. Active 01/31/2025 I will maintain patent airwa y and adequate ventilation through the review date. Active 01/31/2025 I will not experience compli cations of oral/dental health problems through the review date. Active 01/31/2025 I will not have complication s of tracheostomy including accidental decannulation, blockage, pneumothorax, and respiratory infections through the review date. Active 01/31/2025 I will not have skin breakdo wn due to incontinence through the review date. Active 01/31/2025 I will not have skin breakdo wn due to incontinence through the review date. Active 01/31/2025 I will remain free from comp lications related to enteral tubes [such as aspiration, dehydration, refeeding syndrome, malnutrition] through the review date. Active 01/31/2025 I will show management of my symptoms [ie: edema, abnormal breath sounds, hypertenion] through the review date. Active 02/01/20 I will verbalize adequate re lief of pain or ability to cope with incompletely relieved pain through the review date. Active My mobility will be improved/restored by review date. Active 01/31/2025 My risk for alexis will be mitigated through revi ew date. Active 01/31/2025 My risk for respiratory comp lications and infections will be mitigated through the review date. Active 01/31/2025 My skin integrity will be im proved or maintained by next review date. Active 01/31/2025 The resident's advance direc tives are in effect and their wishes will be carried out through the next review. Active Functional Status Code Name Recorded Time Value Entered By Eating 11/12/2024 Setup or clean-up assistance ebzucker Lying to sitting on side of bed 11/13/2024 Not asses sed aleea Oral hygiene 11/13/2024 Not assessed aleea Personal hygiene 11/13/2024 Not assessed aleea Shower/bathe self 11/13/2024 Not assessed aleea Sit to lying 11/13/2024 Not assessed aleea Toilet transfer 11/13/2024 Not assessed aleea Toileting hygiene 11/13/2024 Not assessed aleea Immunizations Immunization Status Vaccine Details Vaccine Code CodeSystem Date Notes Td(adult) unspecified formulation completed Td(adult) unspecified formulation lotNumber: [id number] [facility] [place]: Retora Black Given 0.5 139 CVX created date: 10/16/2024 administer ed date: 06/29/2017 doseUOMNonc lenka:Unknow n (Influenza) AFLURIA - Quadrivalent - Standard Dose cancelled Influenza, split virus, quadrivalent, injectable, preservative free 150 CVX created date: 11/12/2024 consent date: 11/12/2024 Educated by on 11/12/2024 Medications Section Medication Name Status Code CodeSystem Dose Route Frequency Admin Type Sig Text Start Date End Date Indication Pravastatin Sodium Oral Tablet 40 MG aborted 04315 5 RXNORM 1 table t Oral one time a day Routin e Give 1 table t via J-Tub e one time a day for Hyper lipid emia 10/28 Hyperlipide blake Ipratropium -Albuterol Inhalation Solution 0.5-2.5 (3) MG/3ML active 28292 02 RXNORM 3 ml Inhala tion as needed PRN 3 ml via trach every 6 hours as neede d for SOB/ wheez ing 2024 - SOB/ wheezing risperiDONE Oral Tablet 3 MG aborted 14034 2 RXNORM 2 table t Oral at bedtime Routin e Give 2 table t via J-Tub e at bedti me for Schiz ophre nicolás 10/28 Schizophren ia Carvedilol Oral Tablet 6.25 MG aborted 1 RXNORM 1 table t Oral two times a day Routin e Give 1 table t by mouth two times a day for HTN 10/15 HTN Multivitami n-Minerals Oral Tablet aborted 1 table t Oral one time a day Routin e Give 1 table t via J-Tub e one time a day for Vitam in Suppl ement 10/28 Vitamin Supplement Senna Oral Tablet 8.6 MG aborted 2 table t Oral one time a day Routin e Give 2 table t via J-Tub e one time a day for Const patio n HOLD FOR LOOSE STOOL S 10/28 Constpation Amiodarone HCl Oral Tablet 200 MG aborted 74646 8 RXNORM 100 mg Oral one time a day Routin e Give 100 mg via J-Tub e one time a day for ANTIA RRHYT HMICS 10/28 ANTIARRHYTH MICS Polyethylen e Glycol 3350 Powder aborted 17 gram Oral one time a day Routin e Give 17 gram via J-Tub e one time a day for Const ipati on HOLD FOR LOOSE STOOL S 10/28 Constipatio n Flomax Capsule 0.4 MG aborted 84428 1 RXNORM 1 capsu le Oral at bedtime Routin e Give 1 capsu le via J-Tub e at bedti me for benig n prost atic hyper plasi a 10/28 benign prostatic hyperplasia Aspirin Oral Tablet Chewable 81 MG aborted 64377 2 RXNORM 1 table t Oral one time a day Routin e Give 1 table t via J-Tub e one time a day for Preve ntion 10/28 Prevention risperiDONE Oral Tablet 2 MG aborted 67498 1 RXNORM 1 table t Oral in the afternoon Routin e Give 1 table t via J-Tub e in the after noon for Schiz ophre nicolás 10/28 Schizophren ia Omeprazole Oral Capsule Delayed Release 20 MG aborted 1 RXNORM 1 capsu le Oral one time a day Routin e Give 1 capsu le via J-Tub e one time a day for GERD 10/28 GERD [place] Carbonate Oral Capsule 300 MG aborted 9 RXNORM 1 capsu le Oral one time a day Routin e Give 1 capsu le via J-Tub e one time a day for Schiz ophre nicolás 10/28 Schizophren ia Docusate Sodium Oral Tablet 100 MG aborted 01866 79 RXNORM 1 table t Oral every 12 hours Routin e Give 1 table t via J-Tub e every 12 hours for Const ipati on HOLD FOR LOOSE STOOL S 10/28 Constipatio n Finasteride Oral Tablet 5 MG aborted 96702 6 RXNORM 1 table t Oral one time a day Routin e Give 1 table t via J-Tub e one time a day for BPH 10/28 BPH Thiamine HCl Oral Tablet 100 MG aborted 92615 3 RXNORM 1 table t Oral one time a day Routin e Give 1 table t via J-Tub e one time a day for Vitam in Suppl ement 10/28 Vitamin Supplement Dicyclomine HCl [place] [address] 1 RXNORM 1 capsu le Oral four times a day Routin e Give 1 capsu le via J-Tub e four times a day for Abdom inal Distr ess for 7 Days 10/22 Abdominal Distress Furosemide Oral Tablet 20 MG aborted 35342 9 RXNORM 1 table t Oral in the morning Routin e Give 1 table [facility]/25 CHF Benztropine Mesylate Oral Tablet 1 MG aborted 52237 3 RXNORM 1 table t Oral every 12 hours Routin e Give 1 table t via J-Tub e every 12 hours for Tremo rs 10/28 Tremors Genvoya Oral Tablet 150-150-200 -10 MG aborted 79134 19 RXNORM 1 table t Oral one time a day Routin e Give 1 table t via J-Tub e one time a day for Antiv iral 10/28 Antiviral hydrOXYzine HCl Oral Tablet 25 MG aborted 50029 8 RXNORM 1 table t Oral as needed PRN Give 1 table t via J-Tub e every 6 hours as neede d for anxie ty 10/28 anxiety Folic Acid Oral Tablet 1 MG aborted 89348 0 RXNORM 1 mg Oral one time a day Routin e Give 1 mg via J-Tub e one time a day for Suppl ement 10/28 Supplement Insulin Lispro (1 Unit Dial) Subcutaneou s Solution Pen-injecto r 100 UNIT/ML active 52061 39 RXNORM n/a n/a Subcut aneous before meals Routin e Injec t as per slidi ng scale : if 0 - 199 = 6 units IF LESS THAN [address] MEDIC AL; 200 - 249 = 8 Units ; 250 - 299 = 10 Units ; 300 - 349 = 12 Units ; 350 - 399 = [address] MEDIC AL IF FBS IS GREAT ER THAN 400, subcu taneo usly befor e meals for Diabe felisa Valencia tus 2024 - Diabetes Mellitus Iodosorb External Gel 0.9 % aborted 48363 9 RXNORM n/a n/a Topica l one time a day Routin e Apply to LEFT PLANT AR FOOT topic ally one time a day every 3 day(s ) for Wound Care LEFT PLANT AR FOOT: Soak with Vashe wound wash for 10 minut es. Gentl y Pat Dry. Apply Iodos orb to wound bed. Cover with ABD Pad. Wrap with Zoila d Gauze . Secur e with Tape 10/31 Wound Care Acetaminoph en Oral Tablet 325 MG aborted 66903 2 RXNORM 2 table t Oral as needed PRN Give 2 table t via J-Tub e every 6 hours as neede d for Pain Total Dose 650mg * *DO NOT EXCEE D 3 grams in 24 hours AND Give 2 table t via J-Tub e every 6 hours as neede d for [place] ratur e great er than 101.F Total Dose 650mg * *DO NOT EXCEE D 3 grams in 24 hours 10/28 Pain 18372 2 RXNORM 2 table t Oral as needed PRN Give 2 table t via J-Tub e every 6 hours as neede d for Pain Total Dose 650mg * *DO NOT EXCEE D 3 grams in 24 hours AND Give 2 table t via J-Tub e every 6 hours as neede d for [place] ratur e great er than 101.F Total Dose 650mg * *DO NOT EXCEE D 3 grams in 24 hours 10/28 Temperature greater than 101.F Vashe Cleansing External Solution aborted n/a n/a Topica l one time a day Routin e Apply to LEFT PLANT AR FOOT topic ally one time a day every 3 day(s ) for Wound Care LEFT PLANT AR FOOT: Soak with Vashe wound wash for 10 minut es. Gentl y Pat Dry. Apply Iodos orb to wound bed. Cover with ABD Pad. Wrap with Zoila d Gauze . Secur e with Tape AND Apply to LEFT PLANT AR FOOT topic ally as neede d for Bonny ge/ No Longe r Intac t LEFT PLANT AR FOOT: Soak with Vashe wound wash for 10 minut es. Gentl y Pat Dry. Apply Iodos orb to wound bed. Cover with ABD Pad. Wrap with Zoila d Gauze . Secur e with Tape 10/16 Wound Care n/a n/a Topica l as needed PRN Apply to LEFT PLANT AR FOOT topic ally one time a day every 3 day(s ) for Wound Care LEFT PLANT AR FOOT: Soak with Vashe wound wash for 10 minut es. Gentl y Pat Dry. Apply Iodos orb to wound bed. Cover with ABD Pad. Wrap with Zoila d Gauze . Secur e with Tape AND Apply to LEFT PLANT AR FOOT topic ally as neede d for Bon[place] ge/ No Longe r Intac t LEFT PLANT AR FOOT: Soak with Vashe wound wash for 10 minut es. Gentl y Pat Dry. Apply Iodos orb to wound bed. Cover with ABD Pad. Wrap with Zoila d Gauze . Secur e with Tape 10/16 Soilage/ No Longer Intact Tubersol Solution 5 UNIT/0.1ML [facility] [place] [address] 5 RXNORM 0.1 ml Intrad ermal one time only One Time Only Injec t 0.1 ml intra derma lly one time only for Scree wallace For TB until 10/30 23:59 recor d indur ation in albin meter s; Read PPD in 48 hours , notif y physi cathy if posit glendy and disco ntinu e 2-slim p. 10/31 Screening For TB Tubersol Solution 5 UNIT/0.1ML [facility] [place] [address] 5 RXNORM 0.1 ml Intrad ermal one time only One Time Only Injec t 0.1 ml intra derma lly one time only for Scree wallace For TB until 10/16 23:59 recor d indur ation in albin meter s; Read PPD in 48 hours , notif y physi cathy if posit glendy. 10/17 Screening For TB Insulin Glargine Solution 100 UNIT/ML active 76856 1 RXNORM 16 unit Subcut aneous at bedtime Routin e Injec t 16 unit subcu taneo usly at bedti me for diabe felisa 2024 - diabetes Pravastatin Sodium Oral Tablet 40 MG active 12835 5 RXNORM 1 table t Oral one time a day Routin e Give 1 table t by mouth one time a day for Hyper lipid emia 2024 - Hyperlipide blake risperiDONE Oral Tablet 3 MG active 44521 2 RXNORM 2 table t Oral at bedtime Routin e Give 2 table t by mouth at bedti me for Schiz ophre nicolás 2024 - Schizophren ia Multivitami n-Minerals Oral Tablet active 1 table t Oral one time a day Routin e Give 1 table t by mouth one time a day for Vitam in Suppl ement 2024 - Vitamin Supplement Senna Oral Tablet 8.6 MG active 2 table t Oral one time a day Routin e Give 2 table t by mouth one time a day for Const patio n HOLD FOR LOOSE STOOL S 2024 - Constpation Amiodarone HCl Oral Tablet 200 MG active 65750 8 RXNORM 100 mg Oral one time a day Routin e Give 100 mg by mouth one time a day for ANTIA RRHYT HMICS 2024 - ANTIARRHYTH MICS Polyethylen e Glycol 3350 Powder active 17 gram Oral one time a day Routin e Give 17 gram by mouth one time a day for Const ipati on HOLD FOR LOOSE STOOL S 2024 - Constipatio n Flomax Capsule 0.4 MG active 32855 1 RXNORM 1 capsu le Oral at bedtime Routin e Give 1 capsu le by mouth at bedti me for benig n prost atic hyper plasi a 2024 - benign prostatic hyperplasia Aspirin Oral Tablet Chewable 81 MG active 93743 2 RXNORM 1 table t Oral one time a day Routin e Give 1 table t by mouth one time a day for Preve ntion 2024 - Prevention risperiDONE Oral Tablet 2 MG active 63381 1 RXNORM 1 table t Oral in the afternoon Routin e Give 1 table t by mouth in the after noon for Schiz ophre nicolás 2024 - Schizophren ia Omeprazole Oral Capsule Delayed Release 20 MG active 1 RXNORM 1 capsu le Oral one time a day Routin e Give 1 capsu le by mouth one time a day for GERD 2024 - GERD [place] Carbonate Oral Capsule 300 MG active 9 RXNORM 1 capsu le Oral one time a day Routin e Give 1 capsu le by mouth one time a day for Schiz ophre nicolás 2024 - Schizophren ia Docusate Sodium Oral Tablet 100 MG active 09321 79 RXNORM 1 table t Oral every 12 hours Routin e Give 1 table t by mouth every 12 hours for Const ipati on HOLD FOR LOOSE STOOL S 2024 - Constipatio n Finasteride Oral Tablet 5 MG active 99121 6 RXNORM 1 table t Oral one time a day Routin e Give 1 table t by mouth one time a day for BPH 2024 - BPH Thiamine HCl Oral Tablet 100 MG active 70680 3 RXNORM 1 table t Oral one time a day Routin e Give 1 table t by mouth one time a day for Vitam in Suppl ement 2024 - Vitamin Supplement Benztropine Mesylate Oral Tablet 1 MG active 20771 3 RXNORM 1 table t Oral every 12 hours Routin e Give 1 table t by mouth every 12 hours for Tremo rs 2024 - Tremors Genvoya Oral Tablet 150-150-200 -10 MG active 42041 19 RXNORM 1 table t Oral one time a day Routin e Give 1 table t by mouth one time a day for Antiv iral 2024 - Antiviral hydrOXYzine HCl Oral Tablet 25 MG active 22136 8 RXNORM 1 table t Oral as needed PRN Give 1 table t by mouth every 6 hours as neede d for anxie ty 2024 - anxiety Folic Acid Oral Tablet 1 MG active 15434 0 RXNORM 1 mg Oral one time a day Routin e Give 1 mg by mouth one time a day for Suppl ement 2024 - Supplement Carvedilol Oral Tablet 6.25 MG active 95617 1 RXNORM 1 table t Oral two times a day Routin e Give 1 table t by mouth two times a day for HTN 2024 - HTN Acetaminoph en Oral Tablet 325 MG active 46234 2 RXNORM 2 table t Oral as needed PRN Give 2 table t by mouth every 6 hours as neede d for Pain Total Dose 650mg * *DO NOT EXCEE D 3 grams in 24 hours AND Give 2 table t by mouth every 6 hours as neede d for [place] ratur e great er than 101.F Total Dose 650mg * *DO NOT EXCEE D 3 grams in 24 hours 2024 - Pain 84640 2 RXNORM 2 table t Oral as needed PRN Give 2 table t by mouth every 6 hours as neede d for Pain Total Dose 650mg * *DO NOT EXCEE D 3 grams in 24 hours AND Give 2 table t by mouth every 6 hours as neede d for [place] ratur e great er than 101.F Total Dose 650mg * *DO NOT EXCEE D 3 grams in 24 hours 2024 - Temperature greater than 101.F Acetaminoph en Oral Tablet 325 MG active 08947 2 RXNORM 2 table t Oral as needed PRN Give 2 table t by mouth every 6 hours as neede d for Pain Total Dose 650mg * *DO NOT EXCEE D 3 grams in 24 hours AND Give 2 table t by mouth every 6 hours as neede d for [place] ratur e great er than 101.F Total Dose 650mg * *DO NOT EXCEE D 3 grams in 24 hours 2024 - Pain 92162 2 RXNORM 2 table t Oral as needed PRN Give 2 table t by mouth every 6 hours as neede d for Pain Total Dose 650mg * *DO NOT EXCEE D 3 grams in 24 hours AND Give 2 table t by mouth every 6 hours as neede d for [place] ratur e great er than 101.F Total Dose 650mg * *DO NOT EXCEE D 3 grams in 24 hours 2024 - Temperature greater than 101.F Insulin Glargine-yf gn Subcutaneou s Solution Pen-injecto r 100 UNIT/ML aborted 90454 71 RXNORM 16 unit Subcut aneous one time a day Routin e Injec t 16 unit subcu taneo usly one time a day for Diabe felisa solanoi tus 10/16 Diabetes mellitus Carvedilol Oral Tablet 6.25 MG aborted 1 RXNORM 1 table t Oral two times a day Routin e Give 1 table t via J-Tub e two times a day for HTN 10/28 HTN Acetaminoph en Oral Tablet 325 MG aborted 31518 2 RXNORM 2 table t Oral as needed PRN Give 2 table t via J-Tub e every 6 hours as neede d for Pain Total Dose 650mg * *DO NOT EXCEE D 3 grams in 24 hours AND Give 2 table t via J-Tub e every 6 hours as neede d for [place] ratur e great er than 101.F Total Dose 650mg * *DO NOT EXCEE D 3 grams in 24 hours 10/28 Pain 81446 2 RXNORM 2 table t Oral as needed PRN Give 2 table t via J-Tub e every 6 hours as neede d for Pain Total Dose 650mg * *DO NOT EXCEE D 3 grams in 24 hours AND Give 2 table t via J-Tub e every 6 hours as neede d for [place] ratur e great er than 101.F Total Dose 650mg * *DO NOT EXCEE D 3 grams in 24 hours 10/28 Temperature greater than 101.F Glucagon Emergency Kit 1 MG active 44427 7 RXNORM 1 ml Intram uscula r as needed PRN Injec t 1 ml intra muscu larly as neede d for Blood Sugar s less than 60 and uncon sciou s or unres ponsi ve, and call MD. 2024 - Blood Sugars Mental Status Section Date Assessment Total Score Description 10/18/2024 BIMS 15 cognitively int act CAM 0 No delirium ind icated PHQ-9 00 10/18/2024 CAM 0 No delirium ind icated Insurance Providers Plan of Treatment Section Interventions Intervention Code Code System Display Name Proposed D ate Problems Problem # Description Date of onset Resolved Date Code CodeSystem Concern Status 1 ACQUIRED ABSENCE OF RIGHT LEG BELOW KNEE 10/16/[address] active 2 ACUTE AND CHRONIC RESPIRATORY FAILURE WITH HYPOXIA 10/16/[id number] active 3 ANOXIC BRAIN DAMAGE, NOT ELSEWHERE CLASSIFIED 10/16/[address] active 4 BENIGN PROSTATIC HYPERPLASIA WITHOUT LOWER URINARY TRACT SYMPTOMS 10/16/[address] active 5 CHRONIC KIDNEY DISEASE, STAGE 2 (MILD) 10/16/[address] active 6 CHRONIC VIRAL HEPATITIS C 10/16/[address] active 7 DYSKINESIA OF ESOPHAGUS 10/16/[address] active 8 ENCOUNTER FOR ATTENTION TO GASTROSTOMY 10/16/[address] active 9 ENCOUNTER FOR ATTENTION TO TRACHEOSTOMY 10/16/[address] active 10 ESSENTIAL (PRIMARY) HYPERTENSION 10/16/[address] active 11 HYPERLIPIDEMIA, UNSPECIFIED 10/16/[address] active 12 MUSCLE WASTING AND ATROPHY, NOT ELSEWHERE CLASSIFIED, MULTIPLE SITES 10/16/[address] active 13 OTHER CIRRHOSIS OF LIVER 10/16/[address] active 14 OTHER NONSPECIFIC ABNORMAL FINDING OF LUNG FIELD 10/16/[address] active 15 PERIPHERAL VASCULAR DISEASE, UNSPECIFIED 10/16/[address] active 16 SCHIZOPHRENIA, UNSPECIFIED 10/16/[address] active 17 TYPE 2 DIABETES MELLITUS WITHOUT COMPLICATIONS 10/16/[address] active 18 UNSPECIFIED SEVERE PROTEIN-CALORIE MALNUTRITION 10/16/[address] active 19 UNSPECIFIED SYSTOLIC (CONGESTIVE) HEART FAILURE 10/16/[address] active Reason for Referral No Reasons for Referral Entered Social History Social History Observation Description Start Date End Date Code Code System Current Smoking Status Tobacco smoking consumption unknown 171710463 SNOMED CT Sex Assigned At Male 1965 06141-4 [facility] Gender Identity Sexual Orientation Vital Signs Code Code System Vitals Name Values and Units Timing Information 2339-0 [facility] Blood Sugar Vuizm=433.0 Units=mg/dL 11/13/2024 26552-5 [facility] Weight Iswel=532.0 Units=Lbs 09/2024 9279-1 [facility] Respiratory Rate Value=18.0 Units=/m in 11/13/2024 8462-4 [facility] Blood Pressure-Diastolic Value=77 Un its=mmHg 11/13/2024 8480-6 [facility] Blood Pressure-Systolic Xiijh=306 Un its=mmHg 11/13/2024 8310-5 [facility] Body Temperature Value=98.2 Units= F 11/13/2024 8867-4 [facility] Heart rate Value=79.0 Units=/min 09/2024 32223-6 [facility] O2 % BldC Oximetry Value=96.0 Units= % 11/13/2024 44644-4 [facility] Pain Level Value=0.0 11/12/2024 8302-2 [facility] Height Value=68.0 Units=Inches 10/16/2024
[2024-11-13] MEDS: LACTATED RINGERS 1725 ML IV (04:15)
[2024-11-13] MEDS: Calcium Gluconate/NaCl,Iso-Osm 1 GM/50 ML PLAST..BAG IV (04:23)
[2024-11-13] MEDS: cefEPime HCl/D5W 2 GM/50 ML PIGGYBACK IV (04:23)
[2024-11-13] MEDS: Furosemide 40 MG/4 ML VIAL IVPUSH (05:44)
[2024-11-13 06:06] LABS: Glucose, Whole Blood 224 mg/dL (60-115)
[2024-11-13 06:29] LABS: Venous Blood Gas Refer to POC result
[2024-11-13 06:31] LABS: VBG HCO3 16 mmol/L (22-26); VBG O2 % Saturation 100.0 %
--- NOTE | 2024-11-13 07:41 | PC.NURSE ---
Report given to BI Mora at [facility].
--- NOTE | 2024-11-13 08:35 | ECG_ITS ---
Test Reason : SOB Blood Pressure : */* mmHG Vent. Rate : 92 BPM Atrial Rate : 92 BPM P-R Int : 156 ms QRS Dur : 146 ms QT Int : 430 ms P-R-T Axes : 40 -30 43 degrees QTcB Int : 531 ms Normal sinus rhythm Left axis deviation Right bundle branch block Abnormal ECG When compared with ECG of 13-Nov-2024 03:19, No significant change was found Referred By: Manda Bal Electronically Signed By: NADJA FRANCISCO MD
[2024-11-13 08:37] LABS: Troponin-I High Sensitivity 36.1 ng/L (<3.5-35.0)
== END 2024-11-13 09:36 | disposition short-term general hospital (02) ==
PROVIDERS: Emergency Provider Emergency Medicine; PCP Student in an Organized Health Care Education/Training Program
DX: J96.01 Acute respiratory failure with hypoxia (principal); J18.9 Pneumonia, unspecified organism; E23.2 Diabetes insipidus; Z93.0 Tracheostomy status; E11.9 Type 2 diabetes mellitus without complications; J90 Pleural effusion, not elsewhere classified; J81.1 Chronic pulmonary edema; Z03.818 Encounter for observation for suspected exposure to other biological agents ruled out; Z79.899 Other long term (current) drug therapy; Z79.4 Long term (current) use of insulin; F17.210 Nicotine dependence, cigarettes, uncomplicated
CPT/HCPCS: 31502; 36415; 71045; 80053; 82803; 82947; 83605; 83735; 83880; 84484; 85025; 85610; 87040; 87637; 93005; 94002; 96361; 96365; 96375; 99285; 99291; J0613; J0692; J1938; J3374; J7120

== ENCOUNTER → 2024-11-13 03:19 | Outpatient (BNV) | payer MEDICAID, SELFPAY | PROVIDERS: Emergency Provider Emergency Medicine; PCP Student in an Organized Health Care Education/Training Program; Visit Provider Internal Medicine Cardiovascular Disease | DX: I45.10 Unspecified right bundle-branch block (principal) | CPT/HCPCS: 93010 ==

== ENCOUNTER → 2024-11-13 03:23 | Outpatient (BNV) | payer MEDICAID, SELFPAY | PROVIDERS: Emergency Provider Emergency Medicine; PCP Student in an Organized Health Care Education/Training Program; Visit Provider Radiology Diagnostic Radiology | DX: R06.02 Shortness of breath (principal) | CPT/HCPCS: 71045 ==

== ENCOUNTER 2024-11-26 05:33 | Outpatient (REF) | payer MEDICAID, SELFPAY ==
[2024-11-26 05:36] LABS: MANUAL DIFF FLAG NO
[2024-11-26 05:45] LABS: Hematocrit 29.4 % (42.0-52.0); Hemoglobin 9.2 g/dl (14.0-18.0); Imm Gran Abs Auto 0.12 X10*3/uL (0.00-0.03); Imm Gran Pct Auto 0.8 % (0.0-0.4); Lymphocytes Absolute Auto 2.0 X10*3/uL (1.2-4.9); Mean Corpuscular HGB Conc 31.3 g/dl (31.0-36.0); Mean Corpuscular Hemoglobin 28.6 pg (27.0-33.0); Mean Corpuscular Volume 91.3 fL (80.0-98.0); NRBC Abs Auto 0.000 X10*3/uL (0.0-0.012); NRBC Pct Auto 0.0 /100WBC (0.0-0.2); Platelet Count 261 X10*3/uL (160-400); Red Blood Count 3.22 X10*6/uL (4.60-5.80); White Blood Count 14.5 X10*3/uL (4.8-10.8)
[2024-11-26 06:06] LABS: Anion Gap 15 (12-20); Blood Urea Nitrogen 37 mg/dL (9-16); Calcium 9.5 mg/dL (8.4-10.2); Carbon Dioxide 24 mmol/L (22-29); Chloride 105 mmol/L (96-108); Estimated Glomerular Filt Rate > 60; Potassium 4.7 mmol/L (3.3-5.1); Sodium 139 mmol/L (135-145)
== END 2024-11-26 05:34 | disposition home or self-care (01) ==
LOC: HO.MMNH1L 05:33
PROVIDERS: Visit Provider Physician Assistant Medical
DX: Z13.89 Encounter for screening for other disorder (principal)
CPT/HCPCS: 36415; 80048; 85025

== ENCOUNTER 2024-12-07 04:20 | Inpatient (IN) | payer MEDICAID, SELFPAY ==
[2024-12-07] VITALS (14 sets, daily range): BP systolic 110–150; BP diastolic 64–83; PULSE 70–110; RESP 12–32; TEMP 36.4–37.3; O2SAT 91–100; BMI 17.6; BMI 17.2
--- NOTE | ~2024-12-07 | XR_ITS ---
CLINICAL HISTORY: sob 1 view chest x-ray Comparison: CR - XR CHEST 1V - 11/13/24 03:[address]/SR - CT CHEST W IV CON - 07/30/24 19:12 EDT Findings: Pulmonary vascular congestion superimposed with upper lobe predominant emphysematous changes. Small right pleural effusion with atelectasis possible small right lower lobe consolidation. No left pleural effusion. Mild cardiomegaly, stable. No acute osseous abnormality. IMPRESSION: Pulmonary vascular congestion with emphysematous changes and small right lobe pleural effusion and probable superimposed right lower lobe consolidation. This document has been electronically signed by: Severiano Villalpando MD on 12/07/2024 06:31:31
--- NOTE | 2024-12-07 04:32 | ED.GENADULT ---
HPI - General Adult General Chief complaint: Dyspnea Stated complaint: SOB Time Seen by Provider: 12/07/24 04:26 Source: EMS and RN notes reviewed Limitations: other (Trach dependent difficult to verbalize words) History of Present Illness HPI narrative: 58-year-old male with a history of HIV, hepatitis-C, DM, PAD, chronic osteomyelitis, prior tobacco abuse, likely COPD although has no formal diagnosis, chronic indwelling Sin, with recurrent urinary tract infections, GERD, HLD, schizophrenia, chronic thrombocytopenia, trach dependence for unknown reason, who presents from [facility] with shortness of breath. Per EMS, staff noted the patient to be hypoxic to 70% this morning around 3:00 a.m.. They state they attempted to suction the trach, he was also given a DuoNeb. Unclear if the patient has been febrile, or has had any additional symptoms as the report we received was limited. Related Data Home Medications ?Medication ?Instructions ?Recorded ?Confirmed benztropine 2 mg tablet 2 mg PO BID 02/16/21 02/08/24 elviteg 150 mg-cob 150 mg-emtricit 1 tab PO DAILY 02/16/21 02/08/24 200 mg-tenofo alafenam 10 mg tablet (Genvoya) lithium carbonate 300 mg tablet 900 mg PO DAILY 02/16/21 02/08/24 pravastatin 40 mg tablet 40 mg PO BEDTIME 02/16/21 02/08/24 propranolol 20 mg tablet 20 mg PO DAILY 02/16/21 02/08/24 risperidone 3 mg tablet 6 mg PO BEDTIME 02/16/21 02/08/24 insulin aspar prot-insulin aspart 15 unit subcut DAILY@0900 03/05/21 02/08/24 100 unit/mL (70-30) subcutaneous pen (Novolog Mix 70-30FlexPen U-100) omeprazole 20 mg capsule,delayed 20 mg PO DAILY@0630 03/05/21 02/08/24 release polyethylene glycol 3350 17 17 g PO DAILY 09/02/21 02/08/24 gram/dose oral powder (Gavilax) insulin aspar prot-insulin aspart 17 unit subcut DAILY@2100 01/01/22 02/08/24 100 unit/mL (70-30) subcutaneous pen (Novolog Mix 70-30FlexPen U-100) risperidone 2 mg tablet 2 mg PO DAILY@0900 01/01/22 02/08/24 sennosides 8.6 mg tablet (senna) 17.2 mg PO DAILY@0900 01/01/22 02/08/24 docusate sodium 100 mg capsule 100 mg PO BID 02/08/24 02/08/24 insulin glargine 100 unit/mL (3 30 unit subcut BEDTIME 02/08/24 02/08/24 mL) subcutaneous pen (Lantus Solostar U-100 Insulin) Previous Rx's ?Medication ?Instructions ?Recorded walker (Ultra-Light Rollator misc) #1 ea 01/24/22 azithromycin 250 mg tablet 250 mg PO DAILY 3 days #3 tabs 02/09/24 benzonatate 100 mg capsule 100 mg PO TID PRN cough #20 caps 02/09/24 finasteride 5 mg tablet 5 mg PO DAILY 90 days #90 tabs 04/09/24 tamsulosin 0.4 mg capsule 0.4 mg PO BEDTIME 90 days #90 caps 04/09/24 amoxicillin 875 mg-potassium 1 tab PO Q12H #14 tabs 07/30/24 clavulanate 125 mg tablet Allergies Allergy/AdvReac Type Severity Reaction Status Date / Time acetaminophen (From TYLENOL) Allergy Unknown UNKNOWN Verified 12/07/24 04:33 aspirin (ASA) Allergy Unknown AGITATION Verified 12/07/24 04:33 chlorpromazine (From Allergy Unknown Verified 12/07/24 04:33 Thorazine) clonazepam (From Klonopin) Allergy Rash Verified 12/07/24 04:33 trazodone (TRAZODONE) AdvReac Unknown HYPER Verified 12/07/24 04:33 [facility] Past Medical History Medical History Diabetes Mood disorder Elevated C-reactive protein (CRP) Elevated erythrocyte sedimentation rate Enterococcal bacteremia Callus of foot Eschar of foot Diabetic foot ulcers Sepsis Osteomyelitis of left foot Open wnd foot-complicated HIV (human immunodeficiency virus infection) Hepatitis Chronic prostatitis Erectile dysfunction due to arterial insufficiency BPH w urinary obs/LUTS Urinary hesitancy Surgical History No pertinent past surgical history Family History Family History Father No problems noted. Mother No problems noted. Social History Social History Household Members: Family Household Members Other:: long-term Housing: House Housing Other:: [facility] Do you presently have visiting nurse or other home services: No Alcohol intake: never Comment: RIGHT BKA Patient Tobacco Use Status: Current everyday Tobacco user Tobacco use type: Cigarette Cigarette Packs Per Day: 1 Cigarettes Per Day: 20.0 Smoked in Last 30 Days: No Second Hand Smoke Exposure: Yes Use of substances other than those prescribed or required for medical reasons: No Advance Directives: No Advance Directives Information Provided: Yes Do you have a plan to hurt others: No Plan service: No Current occupational status: unemployed Physical Exam ED Vital Signs: Vital Signs - 24 hr 12/07/24 04:29 12/07/24 04:36 12/07/24 06:00 Temperature 99.2 F Pulse Rate 110 H 110 H 91 Respiratory Rate 32 H 26 H Blood Pressure 143/83 H Pulse Oximetry 99 Oxygen Delivery Method Nasal Cannula Oxygen Flow Rate Fraction of Inspired Oxygen 12/07/24 06:10 12/07/24 06:35 12/07/24 06:37 Temperature Pulse Rate 87 86 89 Respiratory Rate Blood Pressure 110/64 118/65 Pulse Oximetry 92 Oxygen Delivery Method Aerosol Mask Trach Collar Oxygen Flow Rate 5 Fraction of Inspired Oxygen 28 BMI result Body Mass Index 17.6 Course Reevaluation(s) Reevaluation #1: At 5:05 a.m. on December 07, a sepsis focused exam was performed. The patient is hypoxic from his baseline, he has mucus plugging, source likely Respiratory, in addition to screening labs, adding on blood cultures and lactic, we will start empiric Zosyn and vanco, for adequate coverage given he is trach dependent. Time: 05:05 Reevaluation #2: called his proxy Sarah Candelario to let her know he is here [phone]... She answer the phone we spoke briefly, Medications Administered Discontinued Medications Generic Name Dose Route Start Last Admin Trade Name Freq PRN Reason Stop Dose Admin Albuterol Sulfate 5 mg/ 0 mg 12/07/24 05:56 12/07/24 05:57 Albuterol/Ipratropium 3 ml INHALE 12/07/24 05:57 7.5 each ONCE ONE Administration Furosemide 20 mg 12/07/24 05:37 12/07/24 05:56 Furosemide 20 Mg/2 Ml Vial IVPUSH 12/07/24 05:38 20 mg ONCE ONE Administration Protocol Piperacillin Sod/Tazobactam 50 mls @ 100 mls/hr 12/07/24 05:05 12/07/24 06:37 Sod 3.375 gm/ Sodium Chloride IV 12/07/24 05:34 Infused ONCE ONE Infusion Vancomycin HCl 1,500 mg/ 500 mls @ 333.333 mls/hr 12/07/24 05:05 12/07/24 05:29 Sodium Chloride IV 12/07/24 06:34 333.33 mls/hr ONCE ONE Administration Sodium Chloride 500 mls @ 500 mls/hr 12/07/24 05:06 12/07/24 06:30 Ns IV 12/07/24 06:05 Infused .Q1H ONE Infusion Magnesium Sulfate 2 gm in 50 mls @ 150 mls/hr 12/07/24 05:35 12/07/24 06:37 Magnesium Sulfate/H2o IV 12/07/24 05:54 Infused ONCE ONE Infusion Methylprednisolone Sodium Succinate 60 mg 12/07/24 05:35 12/07/24 05:55 Methylprednisolone Sod Succ 125 Mg/2 Ml Vial IVPUSH 12/07/24 05:36 60 mg ONCE ONE Administration Procedures Procedure Narrative Procedure Narrative: Ultrasound-guided IV 20 gauge 1-3/4 inch IV placed in left upper extremity. Adequate blood return, flushes well secured with Tegaderm. Medical Decision Making Medical Decision Making MDM Narrative: 58-year-old male with a history of HIV, hepatitis-C, DM, PAD, chronic osteomyelitis, prior tobacco abuse, likely COPD although has no formal diagnosis, chronic indwelling Sin, with recurrent urinary tract infections, GERD, HLD, schizophrenia, chronic thrombocytopenia, trach dependence for unknown reason, who presents from [facility] with shortness of breath. Per EMS, staff noted the patient to be hypoxic to 70% this morning around 3:00 a.m.. They state they attempted to suction the trach, he was also given a DuoNeb. Unclear if the patient has been febrile, or has had any additional symptoms as the report we received was limited. Problem: Trach dependent, HIV, hep C, diabetes, likely COPD, chronic indwelling Sin, chronic osteomyelitis History: Per EMS which is limited, the patient can not speak for himself. I have considered the following differential diagnoses: COPD exacerbation, sepsis, pneumonia, bronchitis, mucus plugging, urinary tract infection, PE , ACS, heart failure Plan: I am concerned for sepsis, The patient is hypoxic from his baseline, he has mucus plugging, source likely Respiratory, in addition to screening labs, adding on blood cultures and lactic, we will start empiric Zosyn and vanco, for adequate coverage given he is trach dependent. We will obtain an ABG. I think he has concurrent COPD exacerbation, we will be giving DuoNeb, magnesium, Solu-Medrol, adding on a viral panel. Thought about ACS, the patient is not complaining of chest pain, we will add a trop. Thought about heart failure, he is hypoxic, I do not hear adequate air movement at the bases, I foresee him having pleural effusions, adding on BNP. We will screen his urine, he has had frequent urinary tract infections. I am considering PE as a cause for his hypoxia, and he is tachycardic, however, he has no objective unilateral lower extremity swelling, there are other plausible reasons for him to be hypoxic and he is meeting sepsis criteria, deferring a dimer for now. I have independently reviewed the following tests: Labs: Leukocytosis with left shift, stable anemia, no electrolyte abnormality, creatinine at baseline, lactic 0.8, BNP 52218.6, troponin 29.2, urine not infected, viral panel pending ABG no acute abnormality today EKG: Normal sinus rhythm, rate of 94, right bundle again appreciated, left axis deviation the same, concerned for age indeterminate septal infarct, ST depression V4 , V5 appear similar to me from EKG of November 13 Chest x-ray: Chest x-ray just taken, we do not have the formal read, he has a definite effusion on the right side, appears to have potential multifocal pneumonia versus pulmonary edema, definite infiltrates on the right, we will wait for formal read Differential Diagnosis Differential Diagnoses: The differential diagnosis associated with the presentation includes See medical decision-making Admission/Observation Consideration of admission/observation: Escalation of care including admission/observation considered Requires admission Consult Healthcare Provider Management of the patient was discussed with: Hospitalist Lab Data MDM Lab Attestation statement: I reviewed the patient's lab results. 12/07/24 04:49 12/07/24 04:49 Labs: Lab Results 12/07/24 12/07/24 Range/Units 04:49 04:51 WBC 15.8 H (4.8-10.8) X10*3/uL RBC 3.09 L (4.60-5.80) X10*6/uL Hgb 8.8 L (14.0-18.0) g/dl Hct 28.1 L (42.0-52.0) % MCV 90.9 (80.0-98.0) fL MCH 28.5 (27.0-33.0) pg MCHC 31.3 (31.0-36.0) g/dl RDW 13.5 (11.0-16.0) % Plt Count 215 (160-400) X10*3/uL MPV 9.9 (9.4-12.4) fL Immature Gran % (Auto) 0.7 H (0.0-0.4) % Neut % (Auto) 86.4 H (45-73) % Lymph % (Auto) 7.5 L (20-40) % [place] % (Auto) 3.9 (2-11) % Eos % (Auto) 1.3 (0-4) % Baso % (Auto) 0.2 (0-2) % Lymph # (Auto) 1.2 (1.2-4.9) X10*3/uL [place] # (Auto) 0.6 (0.1-1.2) X10*3/uL Eos # (Auto) 0.2 (0.0-0.4) X10*3/uL Baso # (Auto) 0.0 (0.0-0.2) X10*3/uL Abs Immat Gran (auto) 0.11 H (0.00-0.03) X10*3/uL Absolute Neuts (auto) 13.7 H (2.0-8.3) x10*3/uL Absolute Nucleated RBC 0.000 (0.0-0.012) X10*3/uL Nucleated RBC % (auto) 0.0 (0.0-0.2) /100WBC O2 Saturation 98.0 % ABG pH at Pt Temp 7.37 (7.35-7.45) ABG pCO2 at Pt Temp 43 (32-45) mmHg ABG pO2 at Pt Temp 106 (83-108) mmHg ABG HCO3 25 (22-26) mmol/L ABG Base Excess (Actual) -0.1 mmol/L Sodium 137 (135-145) mmol/L Potassium 4.9 (3.3-5.1) mmol/L Chloride 106 (96-108) mmol/L Carbon Dioxide 25 (22-29) mmol/L Anion Gap 11 L (12-20) BUN 16 (9-16) mg/dL Creatinine 1.16 (0.5-1.4) mg/dL Estim Creat Clear Calc 50.9 Estimated GFR > 60 Random Glucose 197 H (60-115) mg/dL Lactic Acid 0.8 (0.5-2.0) mmol/L Calcium 9.5 (8.4-10.2) mg/dL Magnesium 2.1 (1.6-2.6) mg/dL Total Bilirubin 0.2 (0.0-1.0) mg/dL AST 19 (5-37) U/L ALT 21 (0-40) U/L Alkaline Phosphatase 99 (39-117) U/L Troponin I High Sens 29.2 (<3.5-35.0) ng/L NT-Pro-B Natriuret Pep 36230.6 H (<300) pg/mL Total Protein 7.1 (6.5-8.0) g/dL Albumin 3.6 (3.5-5.0) g/dL Urine Color Yellow Urine Appearance Clear Urine pH 6.5 (5.0-9.0) Ur Specific [place] 1.010 (1.005-1.025) Urine Protein 100 (2+) H (Neg-Trace) mg/dL Urine Glucose (UA) Negative (Negative) mg/dL Urine Ketones Negative (Negative) mg/dL Urine Blood Small (1+) H (Negative) Urine Nitrite Negative (Negative) Ur Leukocyte Esterase Trace H (Negative) Urine RBC 3-5 H (0-2) /HPF Urine WBC 0-5 (0-5) /HPF Ur Squamous Epith Cells 0-2 (0-2) /HPF Urine Bacteria None Seen (None Seen) Hyaline Casts 0-2 (0-2) /LPF ABG Data ABG Results: See MDM Attestation ABG: I personally reviewed and interpreted this ABG as follows: Independent Interpretation I performed an independent interpretation of an: EKG and Plain X-Ray Interpretation: See medical decision-making Radiology Impression Discussion of test interpretation with radiology: I have reviewed the radiologist's reading. Discharge Plan Discharge Clinical Impression: Sepsis, Hypoxia, Pneumonia, Pleural effusion Patient Disposition: Admitted As Inpatient Print Language: Unable To Collect
[2024-12-07 04:56] LABS: ABG HCO3 25 mmol/L (22-26); ABG O2 % Saturation 98.0 %
[2024-12-07 04:56] LABS: MANUAL DIFF FLAG NO
[2024-12-07 04:57] LABS: Hematocrit 28.1 % (42.0-52.0); Hemoglobin 8.8 g/dl (14.0-18.0); Imm Gran Abs Auto 0.11 X10*3/uL (0.00-0.03); Imm Gran Pct Auto 0.7 % (0.0-0.4); Lymphocytes Absolute Auto 1.2 X10*3/uL (1.2-4.9); Mean Corpuscular HGB Conc 31.3 g/dl (31.0-36.0); Mean Corpuscular Hemoglobin 28.5 pg (27.0-33.0); Mean Corpuscular Volume 90.9 fL (80.0-98.0); NRBC Abs Auto 0.000 X10*3/uL (0.0-0.012); NRBC Pct Auto 0.0 /100WBC (0.0-0.2); Platelet Count 215 X10*3/uL (160-400); Red Blood Count 3.09 X10*6/uL (4.60-5.80); White Blood Count 15.8 X10*3/uL (4.8-10.8)
[2024-12-07 05:12] LABS: Alanine Aminotransferase 21 U/L (0-40); Albumin Level 3.6 g/dL (3.5-5.0); Alkaline Phosphatase 99 U/L (39-117); Anion Gap 11 (12-20); Aspartate Amino Transferase 19 U/L (5-37); Blood Urea Nitrogen 16 mg/dL (9-16); Calcium 9.5 mg/dL (8.4-10.2); Carbon Dioxide 25 mmol/L (22-29); Chloride 106 mmol/L (96-108); Creatinine Clr Calc Pharmacy 50.9; Estimated Glomerular Filt Rate > 60; Magnesium 2.1 mg/dL (1.6-2.6); Potassium 4.9 mmol/L (3.3-5.1); Sodium 137 mmol/L (135-145); Total Protein 7.1 g/dL (6.5-8.0)
[2024-12-07 05:15] LABS: Appearance Urine Clear; Glucose Urine UA Negative (Negative); PH 6.5 (5.0-9.0); Specific Gravity - Urine 1.010 (1.005-1.025); UMIC TRIGGER UACC YES
[2024-12-07 05:19] LABS: NT Pro B Type Natriuretic Pept 11165.6 pg/mL (<300); Troponin-I High Sensitivity 29.2 ng/L (<3.5-35.0)
--- NOTE | 2024-12-07 05:46 | ECG_ITS ---
Test Reason : SOB Blood Pressure : */* mmHG Vent. Rate : 94 BPM Atrial Rate : 94 BPM P-R Int : 144 ms QRS Dur : 132 ms QT Int : 426 ms P-R-T Axes : 51 -41 47 degrees QTcB Int : 532 ms Normal sinus rhythm Left axis deviation Right bundle branch block Septal infarct , age undetermined Abnormal ECG When compared with ECG of 13-Nov-2024 05:55, No significant changes seen Referred By: Camila Sin Electronically Signed By: JOSE LONG
[2024-12-07] MEDS: Magnesium Sulfate/H2O 2 GM/50 ML PIGGYBACK IV (05:54)
[2024-12-07] MEDS: Furosemide 20 MG/2 ML VIAL IVPUSH (05:56)
[2024-12-07] MEDS: Albuterol Sulfate 5 MG, Albuterol/Iprat 2.5/0.5MG 3 ML 3 ML INHALE (05:57)
[2024-12-07 07:10] LABS: ABG Refer to POC result
--- NOTE | 2024-12-07 07:11 | PC.NURSE ---
Assumed care of patient. Pt is calm, cooperative. Pt is hard to understand but appears alert, looking around. Trach is clear, breathing treatment via trach mask in progress and nasal canula at 5L in patients not. Pt denies any pain or discomfort, no visible s/s of distress. RR even and unlabored.
[2024-12-07 08:29] LABS: Resp Syncy Virus RNA Qual PCR NEGATIVE (Negative); SARS COV2 PCR INHOUSE NEGATIVE (Negative)
[2024-12-07 08:32] LABS: Glucose, Whole Blood 153 mg/dL (60-115)
[2024-12-07 09:10] LABS: Venous Blood Gas Refer to POC result
[2024-12-07 09:11] LABS: VBG HCO3 26 mmol/L (22-26); VBG O2 % Saturation 99.0 %
--- NOTE | 2024-12-07 09:20 | PHA.MEDREC ---
Pharmacy Consult ? Medication Reconciliation Pharmacy has completed the medication reconciliation. Utilized list from [facility]. OF NOTE: patient is on lansoprazole and omeprazole per [facility]
--- NOTE | 2024-12-07 09:26 | PM.IMHP ---
History of Present Illness Date of Service: 12/07/24 Attending physician on admission: Yuri Renee Chief Complaint: sob This is a 58-year-old male with multiple medical issues, tracheostomy in place who was sent from [facility] due to shortness of breath. Patient is not talking and unable to provide any history. Per ED at the facility he was hypoxic to 70% this morning, they attempted to suction the trach and he was given a DuoNeb breathing treatment. This was unsuccessful so he was sent to the emergency department. He was treated with empiric antibiotics. In the emergency department he was noted to have elevated white blood cell count and chest x-ray was concerning for right-sided pneumonia and admission was requested. Review of Systems Review of Systems: unable to obtain [facility] Medical History Diabetes Mood disorder Elevated C-reactive protein (CRP) Elevated erythrocyte sedimentation rate Enterococcal bacteremia Callus of foot Eschar of foot Diabetic foot ulcers Sepsis Osteomyelitis of left foot Open wnd foot-complicated HIV (human immunodeficiency virus infection) Hepatitis Chronic prostatitis Erectile dysfunction due to arterial insufficiency BPH w urinary obs/LUTS Urinary hesitancy Family History Father No problems noted. Mother No problems noted. Surgical History No pertinent past surgical history Social History Household Members: Family Household Members Other:: [facility] Housing: House Housing Other:: senior care Do you presently have visiting nurse or other home services: No Alcohol intake: never Comment: RIGHT BKA Patient Tobacco Use Status: Current everyday Tobacco user Tobacco use type: Cigarette Cigarette Packs Per Day: 1 Cigarettes Per Day: 20.0 Smoked in Last 30 Days: No Second Hand Smoke Exposure: Yes Use of substances other than those prescribed or required for medical reasons: No Advance Directives: No Advance Directives Information Provided: Yes Do you have a plan to hurt others: No Plan service: No Current occupational status: unemployed Meds Allergies Allergy/AdvReac Type Severity Reaction Status Date / Time acetaminophen (From TYLENOL) Allergy Unknown UNKNOWN Verified 12/07/24 04:33 aspirin (ASA) Allergy Unknown AGITATION Verified 12/07/24 04:33 chlorpromazine (From Allergy Unknown Verified 12/07/24 04:33 Thorazine) clonazepam (From Klonopin) Allergy Rash Verified 12/07/24 04:33 trazodone (TRAZODONE) AdvReac Unknown HYPER Verified 12/07/24 04:33 Active Medications: Current Medications Amiodarone HCl (Amiodarone Hcl 200 Mg Tablet) 100 mg PO DAILY [facility] Aspirin (Aspirin Enteric Coated 81 Mg Tablet.) 81 mg PO DAILY [facility] Carvedilol (Carvedilol 6.25 Mg Tablet) 6.25 mg PO BID [facility]; Protocol Docusate Sodium (Docusate Sodium 100 Mg Capsule) 100 mg PO BID [facility] Finasteride (Finasteride 5 Mg Tablet) 5 mg PO DAILY [facility] Folic Acid (Folic Acid 1 Mg Tablet) 1 mg PO DAILY [facility] Hydroxyzine HCl (Hydroxyzine Hcl 25 Mg Tablet) 25 mg PO QID PRN PRN Reason: Anxiety Insulin Glargine (Insulin Glargine,Hum.Rec.Anlog 100 Unit/Ml 10 Ml Vial) 5 unit SUBCUT BEDTIME [facility] Ipratropium Vista (Ipratropium Vista 0.5 Mg/2.5 Ml Solution) mg INHALE Q6H PRN PRN Reason: Wheezing [place] Carbonate ([place] Carbonate 300 Mg Capsule) 300 mg PO DAILY [facility] Multivitamins/Vitamin C (Multivitamin Tablet) 1 tab PO DAILY [facility] Non-Formulary Medication (Benztropine) 1 mg PO BID [facility] Non-Formulary Medication (Vffirvq-Qml-Kwyxc-Tenof Alafen [Genvoya]) 1 tab PO DAILY [facility] Omeprazole (Omeprazole 20 Mg Capsule.) 20 mg PO DAILY@0630 [facility] Omeprazole (Omeprazole 20 Mg Capsule.) 20 mg PO DAILY@0630 [facility] Polyethylene Glycol (Polyethylene Glycol 3350 17 Gm Powd.Pack) 17 gm PO DAILY [facility] Pravastatin Sodium (Pravastatin Sodium 40 Mg Tablet) 40 mg PO BEDTIME [facility] Risperidone (Risperidone 2 Mg Tablet) 2 mg PO DAILY@1200 [facility] Risperidone (Risperidone 3 Mg Tablet) 6 mg PO BEDTIME [facility] Senna (Sennosides 8.6 Mg Tablet) 17.2 mg PO DAILY@0900 [facility] Tamsulosin HCl (Tamsulosin Hcl 0.4 Mg Capsule) 0.4 mg PO BEDTIME [facility] Thiamine HCl (Thiamine Hcl 100 Mg Tablet) 100 mg PO DAILY [facility] Home Medications ?Medication ?Instructions ?Recorded ?Confirmed ?Last Taken ?Type benztropine 2 mg tablet 1 mg PO BID 02/16/21 12/07/24 Unknown History elviteg 150 mg-cob 150 mg-emtricit 1 tab PO DAILY 02/16/21 12/07/24 Unknown History 200 mg-tenofo alafenam 10 mg tablet (Genvoya) lithium carbonate 300 mg tablet 300 mg PO DAILY 02/16/21 12/07/24 Unknown History pravastatin 40 mg tablet 40 mg PO BEDTIME 02/16/21 12/07/24 Unknown History risperidone 3 mg tablet 6 mg PO BEDTIME 02/16/21 12/07/24 Unknown History omeprazole 20 mg capsule,delayed 20 mg PO DAILY@0630 03/05/21 12/07/24 Unknown History release polyethylene glycol 3350 17 17 g PO DAILY 09/02/21 12/07/24 Unknown History gram/dose oral powder (Gavilax) risperidone 2 mg tablet 2 mg PO DAILY@1200 01/01/22 12/07/24 Unknown History sennosides 8.6 mg tablet (senna) 17.2 mg PO DAILY@0900 01/01/22 12/07/24 Unknown History docusate sodium 100 mg capsule 100 mg PO BID 02/08/24 12/07/24 Unknown History insulin glargine 100 unit/mL (3 8 unit subcut BEDTIME 02/08/24 12/07/24 Unknown History mL) subcutaneous pen (Lantus Solostar U-100 Insulin) acetaminophen 325 mg tablet 325 mg PO QID PRN Pain (Scale 12/07/24 12/07/24 Unknown History Score 1-3) amiodarone 100 mg tablet 100 mg PO DAILY 12/07/24 12/07/24 Unknown History aspirin 81 mg tablet,delayed 81 mg PO DAILY 12/07/24 12/07/24 Unknown History release carvedilol 6.25 mg tablet 6.25 mg PO BID 12/07/24 12/07/24 Unknown History folic acid 1 mg tablet 1 mg PO DAILY 12/07/24 12/07/24 Unknown History hydroxyzine HCl 25 mg tablet 25 mg PO QID PRN Anxiety 12/07/24 12/07/24 Unknown History insulin lispro 100 unit/mL 6 - 14 sliding scale dose subcut 12/07/24 12/07/24 Unknown History subcutaneous pen USEASDIRECTD ipratropium bromide 0.02 % 2.5 ml inhalation Q6H PRN Wheezing 12/07/24 12/07/24 Unknown History solution for inhalation lansoprazole 15 mg capsule,delayed 15 mg PO DAILY 12/07/24 12/07/24 Unknown History release multivitamin 1 tab PO DAILY 12/07/24 12/07/24 Unknown History tamsulosin 0.4 mg capsule (Flomax) 0.4 mg PO BEDTIME 12/07/24 12/07/24 Unknown History thiamine HCl (vitamin B1) 100 mg 100 mg PO DAILY 12/07/24 12/07/24 Unknown History tablet Physical Exam Vital Signs and Narrative: Vital Signs: Last Vital Signs Temp 97.5 F 12/07/24 09:08 Pulse 71 12/07/24 09:08 Resp 16 12/07/24 09:08 BP 118/70 12/07/24 09:08 Pulse Ox 97 12/07/24 09:08 O2 Del Method Nasal Cannula, Tr ach Collar 12/07/24 09:08 O2 Flow Rate 5 12/07/24 09:08 FiO2 28 12/07/24 06:10 Oxygen Flow Rate 4 12/07/24 04:29 BMI result Body Mass Index 17.6 Const: Other: fraily, chronically ill appearing; tired appearing, falls asleep quickly not responding verbally, unable to assess orientation Nutritional Appearance: thin Resp: Effort & Inspection: normal respiratory effort, no respiratory distress and no use of accessory muscles Cardio: Rate: regular rate GI: Other: feeding tube in place Palpation (GI): Soft to palpation : Other: juares in place draining clear yellow urine Neuro: Other: difficult to assess, not answering questions, not following commands Extrem: Other: right bka Results Labs 12/07/24 04:49 12/07/24 04:49 Labs: Laboratory Results - last 24 hr 12/07/24 12/07/24 12/07/24 04:49 04:51 08:29 MCV 90.9 MCH 28.5 MCHC 31.3 RDW 13.5 Plt Count 215 MPV 9.9 Immature Gran % (Auto) 0.7 H Neut % (Auto) 86.4 H Lymph % (Auto) 7.5 L Mccone % (Auto) 3.9 Eos % (Auto) 1.3 Baso % (Auto) 0.2 Lymph # (Auto) 1.2 Mccone # (Auto) 0.6 Eos # (Auto) 0.2 Baso # (Auto) 0.0 Abs Immat Gran (auto) 0.11 H Absolute Neuts (auto) 13.7 H Absolute Nucleated RBC 0.000 Nucleated RBC % (auto) 0.0 O2 Saturation 98.0 ABG pH at Pt Temp 7.37 ABG pCO2 at Pt Temp 43 ABG pO2 at Pt Temp 106 ABG HCO3 25 ABG Base Excess (Actual) -0.1 VBG pH VBG pCO2 VBG pO2 VBG HCO3 VBG O2 Saturation VBG Base Excess Anion Gap 11 L Estim Creat Clear Calc 50.9 Estimated GFR > 60 POC Glucose 153 H Random Glucose 197 H Lactic Acid 0.8 Calcium 9.5 Magnesium 2.1 Total Bilirubin 0.2 AST 19 ALT 21 Alkaline Phosphatase 99 Troponin I High Sens 29.2 NT-Pro-B Natriuret Pep 04039.6 H Total Protein 7.1 Albumin 3.6 Urine Color Yellow Urine Appearance Clear Urine pH 6.5 Ur Specific [place] 1.010 Urine Protein 100 (2+) H Urine Glucose (UA) Negative Urine Ketones Negative Urine Blood Small (1+) H Urine Nitrite Negative Ur Leukocyte Esterase Trace H Urine RBC 3-5 H Urine WBC 0-5 Ur Squamous Epith Cells 0-2 Urine Bacteria None Seen Hyaline Casts 0-2 Influenza Type A (PCR) NEGATIVE Influenza Type B (PCR) NEGATIVE RSV RNA Qual (PCR) NEGATIVE SARS-CoV-2 RNA (RT-PCR) NEGATIVE 12/07/24 09:06 MCV MCH MCHC RDW Plt Count MPV Immature Gran % (Auto) Neut % (Auto) Lymph % (Auto) Mccone % (Auto) Eos % (Auto) Baso % (Auto) Lymph # (Auto) Mccone # (Auto) Eos # (Auto) Baso # (Auto) Abs Immat Gran (auto) Absolute Neuts (auto) Absolute Nucleated RBC Nucleated RBC % (auto) O2 Saturation ABG pH at Pt Temp ABG pCO2 at Pt Temp ABG pO2 at Pt Temp ABG HCO3 ABG Base Excess (Actual) VBG pH 7.41 VBG pCO2 41 VBG pO2 92 VBG HCO3 26 VBG O2 Saturation 99.0 VBG Base Excess 1.9 Anion Gap Estim Creat Clear Calc Estimated GFR POC Glucose Random Glucose Lactic Acid Calcium Magnesium Total Bilirubin AST ALT Alkaline Phosphatase Troponin I High Sens NT-Pro-B Natriuret Pep Total Protein Albumin Urine Color Urine Appearance Urine pH Ur Specific [place] Urine Protein Urine Glucose (UA) Urine Ketones Urine Blood Urine Nitrite Ur Leukocyte Esterase Urine RBC Urine WBC Ur Squamous Epith Cells Urine Bacteria Hyaline Casts Influenza Type A (PCR) Influenza Type B (PCR) RSV RNA Qual (PCR) SARS-CoV-2 RNA (RT-PCR) Assessment and Plan (1) Hypoxia: Status: Acute Plan This is a 58-year-old male with a history of T2Dm, HTN, HLD, CD3, CAD, HIV, HCV, HFrEF, recent diagnosis of squamous cell lung cancer with recent prolonged hospitalization at [facility] for PEA arrest x3, NSTEMI, multiple strokes and left toe amputations with tracheostomy tube and peg tube placed, and anoxia who was sent from [facility] due to shortness of breath Acute on chronic respiratory failure Imaging consistent with right-sided pneumonia Per [facility] documentation patient has right lower lobe lung mass and was recently treated for pneumonia in the right lower lobe. unclear if this represents recurrent pneumonia or underlying lung mass, but given respiratory distress, increased oxygen requirements and leukocytosis will treat as pneumonia IV ceftriaxone and doxycycline trend CBC trach care supplemental oxygen with goal to keep o2 sats >90% Right lower lobe squamous cell lung cancer Chronic bilateral pleural effusions has been referred for outpatient PET, thoracic surgery as per [facility] notes HFrEF Multivessel CAD h/o PEA arrest x3 PVD s/p right BKA and left 3rd and 5th toe amp HTN/HLD Multiple strokes continue asa, statin, coreg, amiodarone Dysphagia with severe malnutrition feeding tube diet when eval by nutrition as pt on Kaseya at baseline which is nonformulary pureed diet; 1:1 feeds, aspiration precautions T2DM dose adjusted Lantus SSI, POCs Bipolar disorder/schizophrenia Continue risperidone, lithium, benztropine, p.r.n. hydroxyzine Check lithium level in a.m. CKD HIV Continue Genvoya BPH continue finasteride and flomax Gerd continue PPI dvt ppx - heparin HCP has been invoked- healthcare proxy is Sarah (sister) [phone] code status - unable to get ahold of HCP, no MOLST form available at [facility], was admitted to [facility] on 11/28 as a full code, will presumed full code Patient likely to require 2 midnight stay in the hospital for management of acute on chronic respiratory failure, probable pneumonia give it complicated past medical history, numerous chronic medical comorbidities and chronic tracheostomy as well as poor nutritional and functional status with overall poor prognosis. Quality Stroke Does the patient have a stroke diagnosis?: No VTE Prior VTE?: No VTE Risk Level:: Medical - moderate - high VTE Device Contraindication: Treatment Not Indicated VTE Drug Contraindication: N/A - Med Ordered
[2024-12-07] MEDS: Elviteg/Cobi/Emtric/Tenofo Ala 150/150/200/10 TABLET 1 TAB PO (10:55)
--- NOTE | 2024-12-07 10:55 | PC.NURSE ---
Meds given late d/t needing compatible syrine for G-tube and waiting for pharmacy verificiation. Meds administered via g-tube, pt tolerated well.
--- NOTE | 2024-12-07 11:33 | PC.NURSE ---
Pt seems more alert than before, boosted in bed, pt tolerated well. RR even and unlabored. Pt requesting device to help him talk, spoke to respiratory and they are going to look into a valve for his trach
[2024-12-07 11:41] LABS: Glucose, Whole Blood 179 mg/dL (60-115)
--- NOTE | 2024-12-07 12:19 | PC.NURSE ---
spoke to kirsten, patient's sister and informed her patient is in the hospital per request of patient. Was unable to get ahold of Iliana, his other sister
--- NOTE | 2024-12-07 12:48 | PC.NURSE ---
Spoke with Johnson Mai to confirm pt does eat as well as recieve protein via his g-tube. Facility confirmed pt is able to eat pureed diet.
--- NOTE | 2024-12-07 12:51 | PC.NURSE ---
pt has food tray in room pureed diet. Attempted to setup tray for patient but pt refused at this time.
--- NOTE | 2024-12-07 13:11 | PC.NURSE ---
Pt agreed to eat with help. Tech is helping him eat. Insulin given per APR.
[2024-12-07 13:22] LABS: Glucose, Whole Blood 182 mg/dL (60-115)
[2024-12-07] MEDS: 0.9 % Sodium Chloride Flush 3 ML SYRINGE IVFLUSH (16:25)
[2024-12-07 18:43] LABS: Glucose, Whole Blood 204 mg/dL (60-115)
--- NOTE | 2024-12-07 19:40 | PC.NURSE ---
RN assumed care of this pt at 1900; pt is axox3; pt currently resting comfortably in bed. Resps even and unlabored. No apparent distress. Able to make needs known. RN received message @ [phone] to send report as pt has received a bed in room 474.RN working on report.
[2024-12-07 21:17] LABS: Glucose, Whole Blood 178 mg/dL (60-115)
[2024-12-08] VITALS (8 sets, daily range): BP systolic 102–122; BP diastolic 56–71; PULSE 63–77; RESP 17–20; TEMP 36.2–36.8; O2SAT 98–99
[2024-12-08 05:17] LABS: Glucose, Whole Blood 154 mg/dL (60-115)
[2024-12-08 07:42] LABS: MANUAL DIFF FLAG NO
[2024-12-08 07:51] LABS: Glucose, Whole Blood 148 mg/dL (60-115)
[2024-12-08 07:53] LABS: Hematocrit 26.3 % (42.0-52.0); Hemoglobin 8.2 g/dl (14.0-18.0); Imm Gran Abs Auto 0.04 X10*3/uL (0.00-0.03); Imm Gran Pct Auto 0.5 % (0.0-0.4); Lymphocytes Absolute Auto 0.7 X10*3/uL (1.2-4.9); Mean Corpuscular HGB Conc 31.2 g/dl (31.0-36.0); Mean Corpuscular Hemoglobin 28.2 pg (27.0-33.0); Mean Corpuscular Volume 90.4 fL (80.0-98.0); NRBC Abs Auto 0.000 X10*3/uL (0.0-0.012); NRBC Pct Auto 0.0 /100WBC (0.0-0.2); Platelet Count 225 X10*3/uL (160-400); Red Blood Count 2.91 X10*6/uL (4.60-5.80); White Blood Count 8.4 X10*3/uL (4.8-10.8)
[2024-12-08 08:04] LABS: Lithium 0.46 mmol/L (0.60-1.20)
[2024-12-08 08:05] LABS: Anion Gap 14 (12-20); Blood Urea Nitrogen 21 mg/dL (9-16); Calcium 9.6 mg/dL (8.4-10.2); Carbon Dioxide 24 mmol/L (22-29); Chloride 108 mmol/L (96-108); Creatinine Clr Calc Pharmacy 53.3; Estimated Glomerular Filt Rate > 60; Potassium 4.8 mmol/L (3.3-5.1); Sodium 141 mmol/L (135-145)
[2024-12-08] MEDS: 0.9 % Sodium Chloride Flush 3 ML SYRINGE IVFLUSH ×2 (08:25→23:18)
[2024-12-08] MEDS: Elviteg/Cobi/Emtric/Tenofo Ala 150/150/200/10 TABLET 1 TAB PO (08:31)
[2024-12-08 11:07] LABS: Glucose, Whole Blood 174 mg/dL (60-115)
--- NOTE | 2024-12-08 11:28 | MHC.CM.PN ---
THIS CM ATTEMPTED TO MEET WITH PATIENT WITH THE ASSISTANCE OF A PROPERTY CONDITION ASSESSOR. PATIENT IS SLEEPING VERY SOUNDLY, UNABLE TO AWAKEN AT THIS TIME, WILL ATTEMPT TO VISIT AT A LATER TIME. PER CHART REVIEW, PATIENT IS FROM [facility], RETURN REFERRAL SENT IN [facility], THEY CONFIRMED PATIENT IS A BED HOLD.
--- NOTE | 2024-12-08 12:30 | P.PNIM_ITS ---
Subjective Subjective Date of Service: 12/08/24 Interval History: Somnolent but arousable. Review of Systems Unable to to obtain Physical Exam 2 Vital Signs: Vital Signs: Last Vital Signs Temp 98.2 F 12/08/24 11:26 Pulse 63 12/08/24 11:26 Resp 20 12/08/24 11:26 BP 102/56 L 12/08/24 11:26 Pulse Ox 99 12/08/24 11:26 O2 Del Method Trach Collar 12/08/24 11:26 O2 Flow Rate 5 12/08/24 11:26 FiO2 28 12/07/24 06:10 Oxygen Flow Rate 4 12/07/24 04:29 BMI result Body Mass Index 17.2 Const: Other: Somnolent but arousable Neck: Other: Trach mask in place Resp: Other: Clear but diminished at bases no rales rhonchi or wheezes Cardio: Other: No S4; positive S1-S2; no S3 murmurs rubs or gallops GI: Other: Soft positive bowel sounds G-tube intact Extrem: Other: Edema bilaterally Objective Data Active Medications Acetaminophen (Acetaminophen 325 Mg Tablet) 650 mg PO Q6H PRN PRN Reason: Pain, Mild 1-3,fever,headache Amiodarone HCl (Amiodarone Hcl 200 Mg Tablet) 100 mg PO DAILY REPLACED BY [facility] Last Admin: 12/08/24 08:29 Dose: 100 mg Documented By: DEMETRICE Comments: Per pharmacy it okay to cut pill in half but can not crush. Pt agrees to taking pill whole. Aspirin (Aspirin Enteric Coated 81 Mg Tablet.) 81 mg PO DAILY REPLACED BY [facility] Last Admin: 12/08/24 08:29 Dose: Not Given Documented By: DEMETRICE Non-Admin Reason: Patient Refused Benztropine Mesylate (Benztropine Mesylate 1 Mg Tablet) 1 mg PO BID REPLACED BY [facility] Last Admin: 12/08/24 08:28 Dose: 1 mg Documented By: DEMETRICE Comments: Taken whole an not crushed Calcium Carbonate (Calcium Carbonate 750 Mg Tab.Chew) 750 mg PO Q4H PRN PRN Reason: Heartburn Carvedilol (Carvedilol 6.25 Mg Tablet) 6.25 mg PO BID REPLACED BY [facility]; Protocol Last Admin: 12/08/24 08:25 Dose: 6.25 mg Documented By: DEMETRICE Dextrose (Dextrose 50 % 25 Gm/50 Ml Syringe) 25 gm IVPUSH Q15M PRN; Protocol PRN Reason: per Hypoglycemia Standing Ord. Docusate Sodium (Docusate Sodium 100 Mg Capsule) 100 mg PO BID REPLACED BY [facility] Last Admin: 12/08/24 08:27 Dose: Not Given Documented By: DEMETRICE Non-Admin Reason: Patient Refused Elvitegravir/Cobicis/Emtricit/Tenof (Elviteg/Isidra/Emtric/Tenofo Ala 150/150/200/10 Tablet) 1 tab PO DAILY REPLACED BY [facility] Last Admin: 12/08/24 08:31 Dose: 1 tab Documented By: DEMETRICE Comments: Taken whole an not crushed Finasteride (Finasteride 5 Mg Tablet) 5 mg PO DAILY REPLACED BY [facility] Last Admin: 12/08/24 08:27 Dose: 5 mg Documented By: DEMETRICE Comments: Taken whole and not crushed. Folic Acid (Folic Acid 1 Mg Tablet) 1 mg PO DAILY REPLACED BY [facility] Last Admin: 12/08/24 08:28 Dose: 1 mg Documented By: DEMETRICE Glucose (Glucose Gel 15 Gm Gel..Gram.) 15 gm PO Q15M PRN; Protocol PRN Reason: per Hypoglycemia Standing Ord. Heparin Sodium (Porcine) (Heparin Sodium,Porcine 5,000 Unit/Ml Vial) 5,000 unit SUBCUT Q12H REPLACED BY [facility] Last Admin: 12/08/24 10:50 Dose: 5,000 unit Documented By: DEMETRICE Hydroxyzine HCl (Hydroxyzine Hcl 25 Mg Tablet) 25 mg PO QID PRN PRN Reason: Anxiety Ceftriaxone Sodium 1 gm/ (Sodium Chloride) 50 mls @ 100 mls/hr IV Q24H REPLACED BY [facility] Last Infusion: 12/08/24 11:14 Dose: Infused Documented By: DEMETRICE Doxycycline Hyclate 100 mg/ (Sodium Chloride) 250 mls @ 166.67 mls/hr IV Q12H REPLACED BY [facility] Last Admin: 12/08/24 11:20 Dose: 166.67 mls/hr Documented By: DEMETRICE Insulin Glargine (Insulin Glargine,Hum.Rec.Anlog 100 Unit/Ml 10 Ml Vial) 5 unit SUBCUT BEDTIME REPLACED BY [facility] Last Admin: 12/07/24 21:54 Dose: Not Given Documented By: MEHRDAD Non-Admin Reason: Patient Refused Insulin Human Lispro (Insulin Lispro 100 Unit/Ml 3 Ml Vial) 0 unit SUBCUT QIDACHS REPLACED BY [facility]; Protocol Last Admin: 12/08/24 11:22 Dose: 2 unit Documented By: DEMETRICE Ipratropium [place] (Ipratropium [place] 0.5 Mg/2.5 Ml Solution) 0.5 mg INHALE RQ6H PRN PRN Reason: Wheezing [place] Carbonate ([place] Carbonate 300 Mg Capsule) 300 mg PO DAILY REPLACED BY [facility] Last Admin: 12/08/24 08:25 Dose: 300 mg Documented By: DEMETRICE Comments: Taken whole an not crushed Magnesium Hydroxide (Milk Of Magnesia 30 Ml Oral.Susp) 30 ml PO DAILY PRN PRN Reason: Constipation Melatonin (Melatonin 3 Mg Tablet) 6 mg PO BEDTIME PRN PRN Reason: Insomnia Multivitamins/Vitamin C (Multivitamin Tablet) 1 tab PO DAILY REPLACED BY [facility] Last Admin: 12/08/24 08:28 Dose: 1 tab Documented By: DEMETRICE Omeprazole (Omeprazole 20 Mg Capsule.Dr) 20 mg PO DAILY@0630 REPLACED BY [facility] Last Admin: 12/08/24 05:07 Dose: 20 mg Documented By: MEHRDAD Polyethylene Glycol (Polyethylene Glycol 3350 17 Gm Powd.Pack) 17 gm PO DAILY REPLACED BY [facility] Last Admin: 12/08/24 08:29 Dose: Not Given Documented By: DEMETRICE Non-Admin Reason: Patient Refused Pravastatin Sodium (Pravastatin Sodium 40 Mg Tablet) 40 mg PO BEDTIME REPLACED BY [facility] Last Admin: 12/07/24 21:42 Dose: 40 mg Documented By: MEHRDAD Risperidone (Risperidone 2 Mg Tablet) 2 mg PO DAILY@1200 REPLACED BY [facility] Last Admin: 12/07/24 13:04 Dose: 2 mg Documented By: MCKENNA Risperidone (Risperidone 3 Mg Tablet) 6 mg PO BEDTIME REPLACED BY [facility] Last Admin: 12/07/24 21:42 Dose: 6 mg Documented By: MEHRDAD Senna (Sennosides 8.6 Mg Tablet) 17.2 mg PO DAILY@0900 REPLACED BY [facility] Last Admin: 12/08/24 08:29 Dose: Not Given Documented By: DEMETRICE Non-Admin Reason: Patient Refused Sodium Chloride (0.9 % Sodium Chloride Flush 3 Ml Syringe) 3 ml IVFLUSH QSHIFT REPLACED BY [facility] Last Admin: 12/08/24 08:25 Dose: 3 ml Documented By: DEMETRICE Tamsulosin HCl (Tamsulosin Hcl 0.4 Mg Capsule) 0.4 mg PO BEDTIME REPLACED BY [facility] Last Admin: 12/07/24 21:41 Dose: 0.4 mg Documented By: MEHRDAD Thiamine HCl (Thiamine Hcl 100 Mg Tablet) 100 mg PO DAILY REPLACED BY [facility] Last Admin: 12/08/24 08:28 Dose: 100 mg Documented By: DEMETRICE Labs 12/08/24 07:01 12/08/24 07:01 Labs: Laboratory Results - last 24 hr 12/07/24 12/07/24 12/08/24 18:38 21:10 05:12 MCV MCH MCHC RDW Plt Count MPV Immature Gran % (Auto) Neut % (Auto) Lymph % (Auto) [place] % (Auto) Eos % (Auto) Baso % (Auto) Lymph # (Auto) [place] # (Auto) Eos # (Auto) Baso # (Auto) Abs Immat Gran (auto) Absolute Neuts (auto) Absolute Nucleated RBC Nucleated RBC % (auto) Anion Gap Estim Creat Clear Calc Estimated GFR POC Glucose 204 H 178 H 154 H Random Glucose Calcium [place] 12/08/24 12/08/24 12/08/24 07:01 07:14 10:53 MCV 90.4 MCH 28.2 MCHC 31.2 RDW 13.6 Plt Count 225 MPV 11.2 Immature Gran % (Auto) 0.5 H Neut % (Auto) 85.8 H Lymph % (Auto) 8.3 L [place] % (Auto) 5.3 Eos % (Auto) 0.0 Baso % (Auto) 0.1 Lymph # (Auto) 0.7 L [place] # (Auto) 0.4 Eos # (Auto) 0.0 Baso # (Auto) 0.0 Abs Immat Gran (auto) 0.04 H Absolute Neuts (auto) 7.2 Absolute Nucleated RBC 0.000 Nucleated RBC % (auto) 0.0 Anion Gap 14 Estim Creat Clear Calc 53.3 Estimated GFR > 60 POC Glucose 148 H 174 H Random Glucose 153 H Calcium 9.6 [place] 0.46 L Microbiology Microbiology Results: Microbiology 12/07/24 05:06 Blood Culture - Preliminary Blood - Venous No growth after 24 hours. 12/07/24 04:49 Blood Culture - Preliminary Blood - Venous No growth after 24 hours. Assessment and Plan (1) Pneumonia: Status: Acute Plan This is a 58-year-old male with a history of T2Dm, HTN, HLD, CD3, CAD, HIV, HCV, HFrEF, recent diagnosis of squamous cell lung cancer with recent prolonged hospitalization at [facility] for PEA arrest x3, NSTEMI, multiple strokes and left toe amputations with tracheostomy tube and peg tube placed, and anoxia who was sent from [facility] due to shortness of breath 1.Acute on chronic respiratory failure/right-sided pneumonia -ceftriaxone/doxycycline(2) -trend CBC -trach care prn -supplemental oxygen with goal to keep o2 sats >90% 2.Right lower lobe squamous cell lung cancer -Chronic bilateral pleural effusions -outpatient follow up [facility] 3.HFrEF Multivessel CAD h/o PEA arrest x3 PVD s/p right BKA and left 3rd and 5th toe amp HTN/HLD Multiple strokes continue asa, statin, coreg, amiodarone Dysphagia with severe malnutrition feeding tube diet when eval by nutrition as pt on [place] at baseline which is nonformulary pureed diet; 1:1 feeds, aspiration precautions T2DM dose adjusted Lantus SSI, POCs Bipolar disorder/schizophrenia Continue risperidone, lithium, benztropine, p.r.n. hydroxyzine Check lithium level in a.m. CKD HIV Continue Genvoya BPH continue finasteride and flomax Gerd continue PPI dvt ppx - heparin HCP has been invoked- healthcare proxy is Sarah (sister) [phone] code status - unable to get ahold of HCP, no MOLST form available at [facility], was [facility] [place] [facility] [place] 11[place]28 as a full code, will presumed full code Quality Stroke Does the patient have a stroke diagnosis?: No VTE Prior VTE?: No VTE Risk Level:: Medical - moderate - high VTE Device Contraindication: Treatment Not Indicated VTE Drug Contraindication: N/A - Med Ordered
[2024-12-08 17:14] LABS: Glucose, Whole Blood 125 mg/dL (60-115)
[2024-12-08 21:39] LABS: Glucose, Whole Blood 118 mg/dL (60-115)
[2024-12-08] MEDS: Insulin Glargine,Hum.rec.anlog 100 UNIT/ML 10 ML VIAL SUBCUT (22:12)
[2024-12-09] VITALS (7 sets, daily range): BP systolic 109–127; BP diastolic 67–74; PULSE 69–74; RESP 18–19; TEMP 36.2–36.7; O2SAT 98–100; BMI 17.2
[2024-12-09] MEDS: Elviteg/Cobi/Emtric/Tenofo Ala 150/150/200/10 TABLET 1 TAB PO (09:30)
[2024-12-09] MEDS: Aspirin Enteric Coated 81 MG TABLET.DR PO (09:34)
[2024-12-09] MEDS: 0.9 % Sodium Chloride Flush 3 ML SYRINGE IVFLUSH ×2 (09:44→23:45)
[2024-12-09 11:45] LABS: Glucose, Whole Blood 142 mg/dL (60-115)
--- NOTE | 2024-12-09 11:56 | HO.PM.IMPN ---
Subjective Subjective Date of Service: 12/09/24 Interval History: Remains somnolent but arousable. No acute issues overnight Review of Systems Unable to to obtain Physical Exam Vital Signs: Vital Signs: Last Vital Signs Temp 98.0 F 12/09/24 11:28 Pulse 69 12/09/24 11:28 Resp 19 12/09/24 11:28 BP 122/74 12/09/24 11:28 Pulse Ox 100 12/09/24 11:28 O2 Del Method Trach Collar 12/09/24 11:28 O2 Flow Rate 7 12/09/24 11:28 FiO2 28 12/09/24 03:25 Oxygen Flow Rate 4 12/07/24 04:29 BMI result Body Mass Index 17.2 Const: Other: Somnolent but arousable Neck: Other: Trach mask in place Resp: Other: Clear but diminished at bases no rales rhonchi or wheezes Cardio: Other: No S4; positive S1-S2; no S3 murmurs rubs or gallops GI: Other: Soft positive bowel sounds G-tube intact Extrem: Other: Edema bilaterally Objective Data Active Medications Acetaminophen (Acetaminophen 325 Mg Tablet) 650 mg PO Q6H PRN PRN Reason: Pain, Mild 1-3,fever,headache Amiodarone HCl (Amiodarone Hcl 200 Mg Tablet) 100 mg PO DAILY REPLACED BY [facility] Last Admin: 12/09/24 09:31 Dose: 100 mg Documented By: SADIA Aspirin (Aspirin Enteric Coated 81 Mg Tablet.) 81 mg PO DAILY REPLACED BY [facility] Last Admin: 12/09/24 09:34 Dose: 81 mg Documented By: SADIA Benztropine Mesylate (Benztropine Mesylate 1 Mg Tablet) 1 mg PO BID REPLACED BY [facility] Last Admin: 12/09/24 09:29 Dose: 1 mg Documented By: SADIA Calcium Carbonate (Calcium Carbonate 750 Mg Tab.Chew) 750 mg PO Q4H PRN PRN Reason: Heartburn Carvedilol (Carvedilol 6.25 Mg Tablet) 6.25 mg PO BID REPLACED BY [facility]; Protocol Last Admin: 12/09/24 09:34 Dose: 6.25 mg Documented By: SADIA Dextrose (Dextrose 50 % 25 Gm/50 Ml Syringe) 25 gm IVPUSH Q15M PRN; Protocol PRN Reason: per Hypoglycemia Standing Ord. Docusate Sodium (Docusate Sodium 100 Mg Capsule) 100 mg PO BID REPLACED BY [facility] Last Admin: 12/09/24 09:28 Dose: 100 mg Documented By: SADIA Elvitegravir/Cobicis/Emtricit/Tenof (Elviteg/Isidra/Emtric/Tenofo Ala 150/150/200/10 Tablet) 1 tab PO DAILY REPLACED BY [facility] Last Admin: 12/09/24 09:30 Dose: 1 tab Documented By: SADIA Finasteride (Finasteride 5 Mg Tablet) 5 mg PO DAILY REPLACED BY [facility] Last Admin: 12/09/24 09:40 Dose: 5 mg Documented By: SADIA Folic Acid (Folic Acid 1 Mg Tablet) 1 mg PO DAILY REPLACED BY [facility] Last Admin: 12/09/24 09:30 Dose: 1 mg Documented By: SADIA Glucose (Glucose Gel 15 Gm Gel..Gram.) 15 gm PO Q15M PRN; Protocol PRN Reason: per Hypoglycemia Standing Ord. Heparin Sodium (Porcine) (Heparin Sodium,Porcine 5,000 Unit/Ml Vial) 5,000 unit SUBCUT Q12H REPLACED BY [facility] Last Admin: 12/09/24 09:40 Dose: 5,000 unit Documented By: SADIA Hydroxyzine HCl (Hydroxyzine Hcl 25 Mg Tablet) 25 mg PO QID PRN PRN Reason: Anxiety Ceftriaxone Sodium 1 gm/ (Sodium Chloride) 50 mls @ 100 mls/hr IV Q24H REPLACED BY [facility] Last Infusion: 12/08/24 11:14 Dose: Infused Documented By: DEMETRICE Doxycycline Hyclate 100 mg/ (Sodium Chloride) 250 mls @ 166.67 mls/hr IV Q12H REPLACED BY [facility] Last Infusion: 12/09/24 00:47 Dose: Infused Documented By: RYLAN Insulin Glargine (Insulin Glargine,Hum.Rec.Anlog 100 Unit/Ml 10 Ml Vial) 5 unit SUBCUT BEDTIME REPLACED BY [facility] Last Admin: 12/08/24 22:12 Dose: 5 unit Documented By: RYLAN Insulin Human Lispro (Insulin Lispro 100 Unit/Ml 3 Ml Vial) 0 unit SUBCUT QIDACHS REPLACED BY [facility]; Protocol Last Admin: 12/09/24 11:46 Dose: Not Given Documented By: SADIA Non-Admin Reason: No Insulin Coverage Ipratropium [place] (Ipratropium [place] 0.5 Mg/2.5 Ml Solution) 0.5 mg INHALE RQ6H PRN PRN Reason: Wheezing [place] Carbonate ([place] Carbonate 300 Mg Capsule) 300 mg PO DAILY REPLACED BY [facility] Last Admin: 12/09/24 09:30 Dose: 300 mg Documented By: SADIA Magnesium Hydroxide (Milk Of Magnesia 30 Ml Oral.Susp) 30 ml PO DAILY PRN PRN Reason: Constipation Melatonin (Melatonin 3 Mg Tablet) 6 mg PO BEDTIME PRN PRN Reason: Insomnia Multivitamins/Vitamin C (Multivitamin Tablet) 1 tab PO DAILY REPLACED BY [facility] Last Admin: 12/09/24 09:34 Dose: 1 tab Documented By: SADIA Omeprazole (Omeprazole 20 Mg Capsule.) 20 mg PO DAILY@0630 REPLACED BY [facility] Last Admin: 12/09/24 06:17 Dose: 20 mg Documented By: RYLAN Polyethylene Glycol (Polyethylene Glycol 3350 17 Gm Powd.Pack) 17 gm PO DAILY REPLACED BY [facility] Last Admin: 12/09/24 09:34 Dose: Not Given Documented By: SADIA Non-Admin Reason: Patient Refused Pravastatin Sodium (Pravastatin Sodium 40 Mg Tablet) 40 mg PO BEDTIME REPLACED BY [facility] Last Admin: 12/08/24 22:10 Dose: 40 mg Documented By: RYLAN Risperidone (Risperidone 2 Mg Tablet) 2 mg PO DAILY@1200 REPLACED BY [facility] Last Admin: 12/08/24 13:01 Dose: 2 mg Documented By: DEMETRICE Risperidone (Risperidone 3 Mg Tablet) 6 mg PO BEDTIME REPLACED BY [facility] Last Admin: 12/08/24 22:11 Dose: 6 mg Documented By: RYLAN Senna (Sennosides 8.6 Mg Tablet) 17.2 mg PO DAILY@0900 REPLACED BY [facility] Last Admin: 12/09/24 09:34 Dose: Not Given Documented By: SADIA Non-Admin Reason: Patient Refused Sodium Chloride (0.9 % Sodium Chloride Flush 3 Ml Syringe) 3 ml IVFLUSH QSHIFT REPLACED BY [facility] Last Admin: 12/09/24 09:44 Dose: 3 ml Documented By: SADIA Tamsulosin HCl (Tamsulosin Hcl 0.4 Mg Capsule) 0.4 mg PO BEDTIME REPLACED BY [facility] Last Admin: 12/08/24 22:11 Dose: 0.4 mg Documented By: RYLAN Thiamine HCl (Thiamine Hcl 100 Mg Tablet) 100 mg PO DAILY [facility] Last Admin: 12/09/24 09:34 Dose: 100 mg Documented By: SADIA Labs 12/08/24 07:01 12/08/24 07:01 Labs: Laboratory Results - last 24 hr 12/08/24 12/08/24 12/09/24 16:32 21:34 11:30 POC Glucose 125 H 118 H 142 H Microbiology Microbiology Results: Microbiology 12/07/24 05:06 Blood Culture - Preliminary Blood - Venous No growth after 48 hours. 12/07/24 04:49 Blood Culture - Preliminary Blood - Venous No growth after 48 hours. Assessment and Plan (1) Pneumonia: Status: Acute (2) Hypoxia: Status: Acute Plan This is a 58-year-old male with a history of T2Dm, HTN, HLD, CD3, CAD, HIV, HCV, HFrEF, recent diagnosis of squamous cell lung cancer with recent prolonged hospitalization at [facility] for PEA arrest x3, NSTEMI, multiple strokes and left toe amputations with tracheostomy tube and peg tube placed, and anoxia who was sent from [facility] due to shortness of breath 1.Acute on chronic respiratory failure/right-sided pneumonia -ceftriaxone/doxycycline(3) -trend CBC -trach care prn -supplemental oxygen with goal to keep o2 sats >90% 2.Right lower lobe squamous cell lung cancer -Chronic bilateral pleural effusions -outpatient follow up [facility] 3.HFrEF Multivessel CAD h/o PEA arrest x3 PVD s/p right BKA and left 3rd and 5th toe amp HTN/HLD Multiple strokes continue asa, statin, coreg, amiodarone Dysphagia with severe malnutrition feeding tube diet when eval by nutrition as pt on [employer] at baseline which is nonformulary pureed diet; 1:1 feeds, aspiration precautions T2DM dose adjusted Lantus SSI, POCs Bipolar disorder/schizophrenia Continue risperidone, lithium, benztropine, p.r.n. hydroxyzine Check lithium level in a.m. CKD HIV Continue Genvoya BPH continue finasteride and flomax Gerd continue PPI dvt ppx - heparin HCP has been invoked- healthcare proxy is Sarah (sister) [phone] code status - unable to get ahold of HCP, no MOLST form available at [facility], was admitted to [facility] on 11/28 as a full code, will presumed full code Quality Stroke Does the patient have a stroke diagnosis?: No VTE Prior VTE?: No VTE Risk Level:: Medical - moderate - high VTE Device Contraindication: Treatment Not Indicated VTE Drug Contraindication: N/A - Med Ordered
--- NOTE | 2024-12-09 13:11 | MHC.CLN ---
CONSULT PT IS SEVERELY MALNOURISHED AND QUALIFIES FOR SEVERE MALNUTRITION IN THE CONTEXT OF CHRONIC ILLNESS PT WITH MODERATELY DEPLETED SUBCUTANEOUS FAT AND MUSCLE MASS WITH 22% SIGNIFICANT WT LOSS X10 MONTHS WITH CHRONIC POOR PO INTAKE DEPENDENT ON PEG TUBE FOR NUTRITION SUPPORT PT HAS PEG TUBE AND USES [employer] AT [facility]. [employer] BRAND IS SPECIALTY AND OFF FORMULARY PO INTAKE 50% WITH 1:1 FEED ASSIST DIET RX: 1800DM PUREED RECOMMEND ADDING ENSURE MAX BID TO PROVIDE 300KCALS, 60G PROTEIN IF TF NEEDED; RECOMMEND GLUCERNA 1.2 TF AT MAX GOAL RATE 30ML/HR TO PROVIDE 864KCALS, 43G PROTEIN, 580ML FREE WATER TF PROVIDES 50% OF ESTIMATED NEEDS MONITOR TF TOLERANCE AND LYTES IN ADDITION TO PO INTAKE SEE FULL ASSESSMENT
[2024-12-09 16:38] LABS: Glucose, Whole Blood 120 mg/dL (60-115)
[2024-12-09 20:22] LABS: Glucose, Whole Blood 129 mg/dL (60-115)
[2024-12-09] MEDS: Insulin Glargine,Hum.rec.anlog 100 UNIT/ML 10 ML VIAL SUBCUT (21:20)
[2024-12-10 03:07] VITALS: BP 127/70; PULSE 66; RESP 18; TEMP 36.2; O2SAT 97
[2024-12-10 07:25] VITALS: BP 128/69; PULSE 62; RESP 20; TEMP 36.3; O2SAT 99
[2024-12-10 07:25] LABS: Glucose, Whole Blood 111 mg/dL (60-115)
--- NOTE | 2024-12-10 08:51 | MHC.CLN ---
F/U PT IS SEVERELY MALNOURISHED AND QUALIFIES FOR SEVERE MALNUTRITION IN THE CONTEXT OF CHRONIC ILLNESS PT WITH MODERATELY DEPLETED SUBCUTANEOUS FAT AND MUSCLE MASS WITH 22% SIGNIFICANT WT LOSS X10 MONTHS WITH CHRONIC POOR PO INTAKE DEPENDENT ON PEG TUBE FOR NUTRITION SUPPORT PT HAS PEG TUBE AND USES [employer] AT [facility]. [employer] BRAND IS SPECIALTY AND OFF FORMULARY PO INTAKE 50% WITH 1:1 FEED ASSIST DIET RX: 1800DM PUREED RECEIVING ENSURE MAX BID TO PROVIDE 300KCALS, 60G PROTEIN SPOKE WITH PT'S NURSE AT [facility] AND DIETITIAN. BOTH CONFIRMED PT ARRIVED AT [facility] USING [employer] BRAND TUBE FEEDING FROM [facility]. PT TOLERATED WELL -NO SPECIFIC NEED FOR SPECIALTY FORMULA KNOWN TO SNF RECOMMEND GLUCERNA 1.2 TF AT MAX GOAL RATE 30ML/HR TO PROVIDE 864KCALS, 43G PROTEIN, 580ML FREE WATER TF PROVIDES 50% OF ESTIMATED NEEDS MONITOR TF TOLERANCE AND LYTES IN ADDITION TO PO INTAKE
[2024-12-10] MEDS: Elviteg/Cobi/Emtric/Tenofo Ala 150/150/200/10 TABLET 1 TAB PO (10:53)
[2024-12-10] MEDS: Aspirin Enteric Coated 81 MG TABLET.DR PO (10:53)
[2024-12-10] MEDS: 0.9 % Sodium Chloride Flush 3 ML SYRINGE IVFLUSH (11:03)
--- NOTE | 2024-12-10 11:05 | MHC.CM.PN ---
PATIENT IS MEDICALLY CLEARED FOR DISCHARGE BACK TO [facility] TODAY, HE WILL TRANSPORT THERE VIA [facility].
[2024-12-10 11:24] LABS: Glucose, Whole Blood 160 mg/dL (60-115)
[2024-12-10 11:31] VITALS: BP 117/66; PULSE 65; RESP 20; TEMP 36.6; O2SAT 100
--- NOTE | 2024-12-10 12:13 | P.DS_ITS ---
DS: Providers Provider Date of Service: 12/10/24 Date of admission: 12/07/24 09:25 Date of discharge: 12/10/24 Primary care physician: Owen Kelley MD DS: Diagnosis Discharge Diagnosis (1) Hypoxia: Status: Acute (2) PAD (peripheral artery disease): Status: Acute (3) Pneumonia: Status: Acute DS: Summary Hospital Course Hospital Course: This is a 58-year-old male with a history of T2Dm, HTN, HLD, CD3, CAD, HIV, HCV, HFrEF, recent diagnosis of squamous cell lung cancer with recent prolonged hospitalization at [facility] for PEA arrest x3, NSTEMI, multiple strokes and left toe amputations with tracheostomy tube and peg tube placed, and anoxia who was sent from [facility] due to shortness of breath 1.Acute on chronic respiratory failure/right-sided pneumonia CXR RLL consolidation, leucocytosis OA, aafebrile OA BC NTD -ceftriaxone/doxycycline in pt dc on Augmentin and PO doxy to complete 7 days course back to [facility] as needed 2.Right lower lobe squamous cell lung cancer -Chronic bilateral pleural effusions -outpatient follow up [facility] 3.HFrEF Multivessel CAD h/o PEA arrest x3 PVD s/p right BKA and left 3rd and 5th toe amp HTN/HLD Multiple strokes continue asa, statin, coreg, amiodarone Dysphagia with severe malnutrition feeding tube diet when eval by nutrition as pt on [employer] at baseline which is nonformulary pureed diet; 1:1 feeds, aspiration precautions was reccs inpt by speech GLUCERNA 1.2 TF AT MAX GOAL RATE 30ML/HR TO PROVIDE 864KCALS, 43G PROTEIN, 580ML FREE WATER TF PROVIDES 50% OF ESTIMATED NEEDS MONITOR TF TOLERANCE AND LYTES IN ADDITION TO PO INTAKE T2DM resume home dose Bipolar disorder/schizophrenia resume home meds CKD Cr at baseline HIV Continue Genvoya BPH continue finasteride and flomax Gerd continue PPI Time Attestation Discharge Coordination Time (in mins): 40 mins Quality: Safe Use of Opioids Does Pt have an Active Cancer Diagnosis on the Problem List?: No Quality: Stroke Does the patient have a stroke diagnosis?: No Physical Exam Exam: Exam: edema b/l heart RRR abdomen gtube in place trach collar in place Vital Signs: Vital Signs: Last Vital Signs Temp 97.8 F 12/10/24 11:31 Pulse 65 12/10/24 11:31 Resp 20 12/10/24 11:31 BP 117/66 12/10/24 11:31 Pulse Ox 100 12/10/24 11:31 O2 Del Method Room Air 12/10/24 11:31 O2 Flow Rate 4 12/10/24 07:25 FiO2 28 12/09/24 03:25 Oxygen Flow Rate 4 12/07/24 04:29 BMI result Body Mass Index 17.2 DS: Data Data Completed and Pending Completed studies during hospitalization [Text1]: Procedures Detachment at Right Foot, Partial 1st Ray, Open Approach (01/15/22) Detachment at Right Foot, Partial 2nd Ray, Open Approach (01/15/22) Detachment at Right Foot, Partial 3rd Ray, Open Approach (01/15/22) Detachment at Right Foot, Partial 4th Ray, Open Approach (01/15/22) Detachment at Right Foot, Partial 5th Ray, Open Approach (01/15/22) Excision of Right Foot Skin, External Approach (06/15/21) Excision of Right Foot Subcutaneous Tissue and Fascia, Open Approach (07/27/21) Excision of Right Foot Subcutaneous Tissue and Fascia, Percutaneous Approach (01/01/22) Insertion of Infusion Device into Superior Vena Cava, Percutaneous Approach (03/05/21) Labs on day of discharge: Laboratory Results - last 24 hr 12/09/24 12/09/24 12/10/24 16:34 20:11 07:08 POC Glucose 120 H 129 H 111 12/10/24 11:11 POC Glucose 160 H Preliminary micro results at discharge 12/07/24 05:06 Blood Culture - Preliminary Blood - Venous No growth after 48 hours. 12/07/24 04:49 Blood Culture - Preliminary Blood - Venous No growth after 48 hours. Discharge Plan Discharge Anticipated Discharge Date/Time: 12/10/24 12:06 Patient Disposition: Xfer SNF Discharge Diagnosis: PNA Referrals: [facility] [Outside] - 1 Week Owen Kelley MD [Primary Care Provider, Family Practice] - 1 Week Discharge Medications: New doxycycline monohydrate 100 mg Capsule 100 mg PO Q12H 3 Days Qty: 6 0RF amoxicillin-pot clavulanate [Augmentin] 500-125 mg tablet 1 tab PO BID 3 Days Qty: 6 0RF Continued omeprazole 20 mg capsule,delayed release(DR/EC) 20 mg PO DAILY@0630 sennosides [senna] 8.6 mg tablet 17.2 mg PO DAILY@0900 risperidone 2 mg tablet 2 mg PO DAILY@1200 (DME) Ultra-Light Rollator Misc See Rx Instructions .Route Qty: 1 0RF Rx Instructions: As directed docusate sodium 100 mg capsule 100 mg PO BID insulin glargine [Lantus Solostar U-100 Insulin] 100 unit/mL (3 mL) insulin pen 8 unit subcut BEDTIME multivitamin Tablet 1 tab PO DAILY acetaminophen 325 mg Tablet 325 mg PO QID PRN (Reason: Pain (Scale Score 1-3)) carvedilol 6.25 mg Tablet 6.25 mg PO BID Rx Instructions: must administer with a meal/food thiamine HCl (vitamin B1) 100 mg Tablet 100 mg PO DAILY aspirin [Aspir-81] 81 mg Tablet,Delayed Release (Dr/Ec) 81 mg PO DAILY tamsulosin [Flomax] 0.4 mg Capsule 0.4 mg PO BEDTIME lansoprazole 15 mg Capsule,Delayed Release(Dr/Ec) 15 mg PO DAILY folic acid 1 mg Tablet 1 mg PO DAILY hydroxyzine HCl 25 mg Tablet 25 mg PO QID PRN (Reason: Anxiety) ipratropium bromide 0.02 % Solution 2.5 ml INHALATION Q6H PRN (Reason: Wheezing) insulin lispro 100 unit/mL Insulin Pen 6 - 14 sliding scale dose SUBCUT USEASDIRECTD amiodarone 100 mg Tablet 100 mg PO DAILY Genvoya [phone] mg tablet 1 tab PO DAILY pravastatin 40 mg tablet 40 mg PO BEDTIME lithium carbonate 300 mg tablet 300 mg PO DAILY risperidone 3 mg tablet 6 mg PO BEDTIME benztropine 2 mg tablet 1 mg PO BID polyethylene glycol 3350 [Gavilax] 17 gram/dose powder 17 g PO DAILY finasteride 5 mg tablet 5 mg PO DAILY 90 Days Qty: 90 3RF Discharge Orders: Discharge Order (Routine); Ordered 12/10/24 Ordered By: Fanta Barreto Activity on Discharge: As tolerated Stand Alone Forms: Patient Portal Discharge page Print Language: Unable To Collect Care Plan Goals: Pt was admitted with acute hypoxia in the setting of PNA and was started on Abx inpt. He responded well and was back to his baseline at the time of discharge. He will need to complete his course of Abx as directed. Health Concerns: as above Plan of Treatment: as above Assessment: as above
== END 2024-12-10 13:35 | disposition skilled nursing facility (03) | DRG 139 ==
LOC: HO.ED 06:07 → HO.EDOVER 09:28 → HO.IMC 19:27
PROVIDERS: Hospitalist; Physician Assistant Medical; Admitting Provider Physician Assistant Medical; Emergency Provider Emergency Medicine Emergency Medical Services; PCP Student in an Organized Health Care Education/Training Program; Visit Provider Hospitalist
DX: J18.9 Pneumonia, unspecified organism (principal); J96.21 Acute and chronic respiratory failure with hypoxia; E43 Unspecified severe protein-calorie malnutrition; C34.31 Malignant neoplasm of lower lobe, right bronchus or lung; I13.0 Hypertensive heart and chronic kidney disease with heart failure and stage 1 through stage 4 chronic kidney disease, or unspecified chronic kidney disease; Z93.0 Tracheostomy status; E11.22 Type 2 diabetes mellitus with diabetic chronic kidney disease; E11.51 Type 2 diabetes mellitus with diabetic peripheral angiopathy without gangrene; Z86.74 Personal history of sudden cardiac arrest; I25.10 Atherosclerotic heart disease of native coronary artery without angina pectoris; N18.30 Chronic kidney disease, stage 3 unspecified; Z21 Asymptomatic human immunodeficiency virus [HIV] infection status; N40.0 Benign prostatic hyperplasia without lower urinary tract symptoms; K21.9 Gastro-esophageal reflux disease without esophagitis; R13.10 Dysphagia, unspecified; Z96.0 Presence of urogenital implants; Z68.1 Body mass index [BMI] 19.9 or less, adult; Z89.511 Acquired absence of right leg below knee; Z20.822 Contact with and (suspected) exposure to COVID-19; Z87.891 Personal history of nicotine dependence; Z87.440 Personal history of urinary (tract) infections; Z79.4 Long term (current) use of insulin; Z79.899 Other long term (current) drug therapy
CPT/HCPCS: 36415; 71045; 80048; 80053; 80178; 81001; 82803; 82947; 83605; 83735; 83880; 84484; 85025; 87040; 87637; 93005; 94640; 94799; 99285; J0696; J1271; J1644; J1938; J2543; J2919; J3374; J3475

== ENCOUNTER → 2024-12-07 04:30 | Outpatient (BNV) | payer MEDICAID, SELFPAY | PROVIDERS: Emergency Provider Emergency Medicine Emergency Medical Services; Visit Provider Radiology Vascular & Interventional Radiology | DX: J43.9 Emphysema, unspecified (principal); J90 Pleural effusion, not elsewhere classified; R09.89 Other specified symptoms and signs involving the circulatory and respiratory systems | CPT/HCPCS: 71045 ==

== ENCOUNTER → 2024-12-07 05:46 | Outpatient (BNV) | payer MEDICAID, SELFPAY | PROVIDERS: Admitting Provider Physician Assistant Medical; Emergency Provider Emergency Medicine Emergency Medical Services; Visit Provider Internal Medicine | DX: I45.10 Unspecified right bundle-branch block (principal) | CPT/HCPCS: 93010 ==

== ENCOUNTER → 2024-12-07 09:25 | Outpatient (BNV) | payer MEDICAID, SELFPAY | PROVIDERS: Admitting Provider Physician Assistant Medical; Emergency Provider Emergency Medicine Emergency Medical Services; Visit Provider Physician Assistant Medical | DX: R09.02 Hypoxemia (principal); J18.9 Pneumonia, unspecified organism | CPT/HCPCS: 99223; 99233; 99239 ==

== ENCOUNTER 2024-12-11 06:02 | Outpatient (REF) | payer MEDICAID, SELFPAY ==
--- OUTSIDE RECORDS SUMMARY | 2024-12-11 06:05 | XMS_ITS | Clinical Summary ---
Author Organization 175 [facility] Address [address] [place] [address] Phone Care Team Providers Care Senior Power Scheduler Name Role Phone Shell Lopez MD Primary Care Provider [phone] Allergies Active Allergy Reactions Criticality Noted Date Comments Clonazepam 11/16/2023 Quetiapine 11/16/2023 Trazodone 11/16/2023 Medications povidone-iodine (Betadine) 10 % topical solution Apply topically 1 (one) time each day. 473 mL 5 Active povidone-iodine (Betadine) 10 % topical solution Apply topically 1 (one) time each day. 473 mL 5 Active Active Problems Problem Noted Date Diagnosed Date T2DM (type 2 diabetes mellitus) (CMS/[facility] V24, CM S/[facility] V28) 11/14/2023 Social History Tobacco [...] Years (1 of 2 - PCV) 12/20/1983 RSV Immunization Adult Patients (1 - Risk 50-74 years 1-dose series) 2014 Zoster Vaccines (1 of 2) 2014 Cholesterol [...] Td or Tdap) 01/16/2029 01/16/2019, 06/29/2017, 07/30/2014 HIB Vaccines Aged Out No longer eligi [...] topic Insurance MEDICAID - [place] Care Teams Senior Power Scheduler Relationship Specialty Start Date End Date Shell Lopez MD [address] [place] [phone] PCP - General 08/16/23
[2024-12-11 06:07] LABS: MANUAL DIFF FLAG NO
[2024-12-11 06:45] LABS: Anion Gap 11 (12-20); Blood Urea Nitrogen 26 mg/dL (9-16); Calcium 9.1 mg/dL (8.4-10.2); Carbon Dioxide 27 mmol/L (22-29); Chloride 107 mmol/L (96-108); Estimated Glomerular Filt Rate > 60; Potassium 4.8 mmol/L (3.3-5.1); Sodium 140 mmol/L (135-145)
[2024-12-11 06:59] LABS: Hematocrit 28.0 % (42.0-52.0); Hemoglobin 8.7 g/dl (14.0-18.0); Imm Gran Abs Auto 0.06 X10*3/uL (0.00-0.03); Imm Gran Pct Auto 0.7 % (0.0-0.4); Lymphocytes Absolute Auto 1.7 X10*3/uL (1.2-4.9); Mean Corpuscular HGB Conc 31.1 g/dl (31.0-36.0); Mean Corpuscular Hemoglobin 28.0 pg (27.0-33.0); Mean Corpuscular Volume 90.0 fL (80.0-98.0); NRBC Abs Auto 0.000 X10*3/uL (0.0-0.012); NRBC Pct Auto 0.0 /100WBC (0.0-0.2); Platelet Count 229 X10*3/uL (160-400); Red Blood Count 3.11 X10*6/uL (4.60-5.80); White Blood Count 8.5 X10*3/uL (4.8-10.8)
== END 2024-12-11 06:03 | disposition home or self-care (01) ==
LOC: HO.MMNH1L 06:02
PROVIDERS: Visit Provider Physician Assistant Medical
DX: J96.21 Acute and chronic respiratory failure with hypoxia (principal); E43 Unspecified severe protein-calorie malnutrition; Z43.0 Encounter for attention to tracheostomy
CPT/HCPCS: 36415; 80048; 85025

== ENCOUNTER 2024-12-16 05:39 | Outpatient (REF) | payer MEDICAID, SELFPAY ==
--- OUTSIDE RECORDS SUMMARY | 2024-12-16 05:42 | XMS_ITS | Clinical Summary ---
Author Organization 175 [facility] Address [address] [place] [address] Phone Care Team Providers Care Ocean Forwarder Name Role Phone Shell Lopez MD Primary Care Provider [phone] Allergies Active Allergy Reactions Criticality Noted Date Comments Clonazepam 11/16/2023 Quetiapine 11/16/2023 Trazodone 11/16/2023 Medications povidone-iodine (Betadine) 10 % topical solution Apply topically 1 (one) time each day. 473 mL 5 Active povidone-iodine (Betadine) 10 % topical solution Apply topically 1 (one) time each day. 473 mL 5 Active Active Problems Problem Noted Date Diagnosed Date T2DM (type 2 diabetes mellitus) ([facility] V24, CM S/[facility] V28) 11/14/2023 Social History Tobacco Use [...] topic Insurance [place]ICA[place] - [place] Care Teams Ocean Forwarder Relationship Specialty Start Date End Date Shell Lopez MD [address] [place] [phone] PCP - General 08/16/23
== END 2024-12-16 05:40 | disposition home or self-care (01) ==
LOC: HO.MMNH1L 05:39
PROVIDERS: Visit Provider Physician Assistant Medical
DX: Z43.0 Encounter for attention to tracheostomy (principal); J96.21 Acute and chronic respiratory failure with hypoxia; E43 Unspecified severe protein-calorie malnutrition
CPT/HCPCS: 36415; 83036

== ENCOUNTER 2024-12-23 03:46 | Emergency (ER) | payer MEDICAID, SELFPAY ==
[2024-12-23 03:54] VITALS: BP 114/61; BP 114/70; PULSE 68; PULSE 70; RESP 16; TEMP 36.6; O2SAT 98; BMI 17.3
--- NOTE | 2024-12-23 03:59 | ED.GENADULT ---
HPI - General Adult General Chief complaint: General Medical Stated complaint: SNF pulled out trach, 99% RA History of Present Illness ED Provider: kaitlyn HPI narrative: 59-year-old male from SNF history per chart review PID, HIV, chronic trach. Staff reports that he pulled his tracheostomy out. No respiratory distress per EMS Related Data Home Medications ?Medication ?Instructions ?Recorded ?Confirmed benztropine 2 mg tablet 1 mg PO BID 02/16/21 12/07/24 elviteg 150 mg-cob 150 mg-emtricit 1 tab PO DAILY 02/16/21 12/07/24 200 mg-tenofo alafenam 10 mg tablet (Genvoya) lithium carbonate 300 mg tablet 300 mg PO DAILY 02/16/21 12/07/24 pravastatin 40 mg tablet 40 mg PO BEDTIME 02/16/21 12/07/24 risperidone 3 mg tablet 6 mg PO BEDTIME 02/16/21 12/07/24 omeprazole 20 mg capsule,delayed 20 mg PO DAILY@0630 03/05/21 12/07/24 release polyethylene glycol 3350 17 17 g PO DAILY 09/02/21 12/07/24 gram/dose oral powder (Gavilax) risperidone 2 mg tablet 2 mg PO DAILY@1200 01/01/22 12/07/24 sennosides 8.6 mg tablet (senna) 17.2 mg PO DAILY@0900 01/01/22 12/07/24 docusate sodium 100 mg capsule 100 mg PO BID 02/08/24 12/07/24 insulin glargine 100 unit/mL (3 8 unit subcut BEDTIME 02/08/24 12/07/24 mL) subcutaneous pen (Lantus Solostar U-100 Insulin) acetaminophen 325 mg tablet 325 mg PO QID PRN Pain (Scale 12/07/24 12/07/24 Score 1-3) amiodarone 100 mg tablet 100 mg PO DAILY 12/07/24 12/07/24 aspirin 81 mg tablet,delayed 81 mg PO DAILY 12/07/24 12/07/24 release carvedilol 6.25 mg tablet 6.25 mg PO BID 12/07/24 12/07/24 folic acid 1 mg tablet 1 mg PO DAILY 12/07/24 12/07/24 hydroxyzine HCl 25 mg tablet 25 mg PO QID PRN Anxiety 12/07/24 12/07/24 insulin lispro 100 unit/mL 6 - 14 sliding scale dose subcut 12/07/24 12/07/24 subcutaneous pen USEASDIRECTD ipratropium bromide 0.02 % 2.5 ml inhalation Q6H PRN Wheezing 12/07/24 12/07/24 solution for inhalation lansoprazole 15 mg capsule,delayed 15 mg PO DAILY 12/07/24 12/07/24 release multivitamin 1 tab PO DAILY 12/07/24 12/07/24 tamsulosin 0.4 mg capsule (Flomax) 0.4 mg PO BEDTIME 12/07/24 12/07/24 thiamine HCl (vitamin B1) 100 mg 100 mg PO DAILY 12/07/24 12/07/24 tablet Previous Rx's ?Medication ?Instructions ?Recorded walker (Ultra-Light Rollator misc) #1 ea 01/24/22 finasteride 5 mg tablet 5 mg PO DAILY 90 days #90 tabs 04/09/24 amoxicillin 500 mg-potassium 1 tab PO BID 3 days #6 tabs 12/10/24 clavulanate 125 mg tablet (Augmentin) doxycycline monohydrate 100 mg 100 mg PO Q12H 3 days #6 caps 12/10/24 capsule Allergies Allergy/AdvReac Type Severity Reaction Status Date / Time acetaminophen (From TYLENOL) Allergy Unknown UNKNOWN Verified 12/23/24 03:56 aspirin (ASA) Allergy Unknown AGITATION Verified 12/23/24 03:56 chlorpromazine (From Allergy Unknown Verified 12/23/24 03:56 Thorazine) clonazepam (From Klonopin) Allergy Rash Verified 12/23/24 03:56 trazodone (TRAZODONE) AdvReac Unknown HYPER Verified 12/23/24 03:56 [facility] Past Medical History Medical History Diabetes Mood disorder Elevated C-reactive protein (CRP) Elevated erythrocyte sedimentation rate Enterococcal bacteremia Callus of foot Eschar of foot Diabetic foot ulcers Sepsis Osteomyelitis of left foot Open wnd foot-complicated HIV (human immunodeficiency virus infection) Hepatitis Chronic prostatitis Erectile dysfunction due to arterial insufficiency BPH w urinary obs/LUTS Urinary hesitancy Surgical History No pertinent past surgical history Family History Family History Father No problems noted. Mother No problems noted. Social History Social History Household Members: None Household Members Other:: [facility] Housing: Assisted Living Facility Housing Other:: prison Do you presently have visiting nurse or other home services: Yes Alcohol intake: never Comment: RIGHT BKA Patient Tobacco Use Status: Former Tobacco user Tobacco use type: Cigarette Cigarette Packs Per Day: 1 Cigarettes Per Day: 20.0 Smoked in Last 30 Days: No Second Hand Smoke Exposure: Yes Use of substances other than those prescribed or required for medical reasons: No Advance Directives: Yes Advance Directives on File: Yes Advance Directives Date on File: 12/09/24 service: No Current occupational status: unemployed Physical Exam ED Exam Exam: GENERAL: Well appearing. No apparent distress. Alert. HEAD/NECK: No visual trauma. EYES: Normal to inspection. No conjunctival erythema. No discharge. ENMT: Hearing grossly normal. External nose normal. On arrival tracheostomy device has been removed by the patient and his ostomy was patent. RESPIRATORY: Respiratory effort normal. CARDIOVASCULAR: Additional details (Grossly well perfused). SKIN: No jaundice. NEUROLOGICAL: Alert. Moving all extremities x4. Additional details (No gross motor deficits. Normal tone. ). PSYCHIATRIC: Alert. Appearance appropriate for situation. Vital Signs: Vital Signs - 24 hr 12/23/24 03:54 12/23/24 04:21 Temperature 97.8 F Pulse Rate 68 80 Respiratory Rate 16 16 Blood Pressure 114/61 Pulse Oximetry 98 97 Oxygen Delivery Method Room Air Room Air BMI result Body Mass Index 17.3 Medical Decision Making Medical Decision Making MDM Narrative: Medical Decision Making: [age] male from group home with tracheostomy this is self removed. In the emergency department was calm comfortable no hypoxia or distress Respiratory therapy staff replaced with identical size and cuffed tracheostomy without complication Preliminary Favored Differential Diagnosis: [ ] among additional considered etiologies Testing Interpreted Independently: ?See below for details Radiology or Lab testing Results Reviewed: ?See below for details Consults: ?See below for details Independent Historians/External Chart Reviews: ?See below for details Social Determinants of Health Impacting MDM/Planning: ?See below for details Discharge Plan Discharge Clinical Impression: Tracheostomy malfunction Patient Disposition: Home, Self-Care Instructions: Tracheostomy Care (ED) Additional Instructions: Patient had a cuffed same size tracheostomy replaced by our respiratory therapy staff. No complications he has been comfortable since we will discharge home Prescriptions: No Action omeprazole 20 mg capsule,delayed release(DR/EC) 20 mg PO DAILY@0630 sennosides [senna] 8.6 mg tablet 17.2 mg PO DAILY@0900 risperidone 2 mg tablet 2 mg PO DAILY@1200 (DME) Ultra-Light Rollator Misc See Rx Instructions .Route Qty: 1 0RF Rx Instructions: As directed docusate sodium 100 mg capsule 100 mg PO BID insulin glargine [Lantus Solostar U-100 Insulin] 100 unit/mL (3 mL) insulin pen 8 unit subcut BEDTIME multivitamin Tablet 1 tab PO DAILY acetaminophen 325 mg Tablet 325 mg PO QID PRN (Reason: Pain (Scale Score 1-3)) carvedilol 6.25 mg Tablet 6.25 mg PO BID Rx Instructions: must administer with a meal/food thiamine HCl (vitamin B1) 100 mg Tablet 100 mg PO DAILY aspirin 81 mg Tablet,Delayed Release (Dr/Ec) 81 mg PO DAILY tamsulosin [Flomax] 0.4 mg Capsule 0.4 mg PO BEDTIME lansoprazole 15 mg Capsule,Delayed Release(Dr/Ec) 15 mg PO DAILY folic acid 1 mg Tablet 1 mg PO DAILY hydroxyzine HCl 25 mg Tablet 25 mg PO QID PRN (Reason: Anxiety) ipratropium bromide 0.02 % Solution 2.5 ml INHALATION Q6H PRN (Reason: Wheezing) insulin lispro 100 unit/mL Insulin Pen 6 - 14 sliding scale dose SUBCUT USEASDIRECTD amiodarone 100 mg Tablet 100 mg PO DAILY doxycycline monohydrate 100 mg Capsule 100 mg PO Q12H 3 Days Qty: 6 0RF amoxicillin-pot clavulanate [Augmentin] 500-125 mg tablet 1 tab PO BID 3 Days Qty: 6 0RF Genvoya [phone] mg tablet 1 tab PO DAILY pravastatin 40 mg tablet 40 mg PO BEDTIME lithium carbonate 300 mg tablet 300 mg PO DAILY risperidone 3 mg tablet 6 mg PO BEDTIME benztropine 2 mg tablet 1 mg PO BID polyethylene glycol 3350 [Gavilax] 17 gram/dose powder 17 g PO DAILY finasteride 5 mg tablet 5 mg PO DAILY 90 Days Qty: 90 3RF Interventions: ED Discharge Assessment Last Done: 12/23/24 05:41 Discharge Date/Time: 12/23/24 06:39 Print Language: Iranian
--- NOTE | 2024-12-23 04:16 | PC.NURSE ---
pt arrvied by EMS from SNF with reports of trach being pulled out. Per Pt he did not pull it out. REsp called to bedside. stoma site red mild swelling with small amount if blood Resp able to replace with 7.5 cuffed trach
[2024-12-23 04:21] VITALS: PULSE 80; RESP 16; O2SAT 97
--- NOTE | 2024-12-23 04:23 | PC.RT ---
7.5 cuffed shiley trach placed with no complication. Trach ties and split gauze applied. This is duplicate of removed trach patient arrived with.
--- OUTSIDE RECORDS SUMMARY | 2024-12-23 04:31 | XMS_ITS | Clinical Summary ---
Author Organization 175 [facility] Address [address] [place] [address] Phone Care Team Providers Care Social Staff Worker Name Role Phone Shell Lopez MD Primary Care Provider [phone] Allergies Active Allergy Reactions Criticality Noted Date Comments Clonazepam 11/16/2023 Quetiapine 11/16/2023 Trazodone 11/16/2023 Medications povidone-iodine (Betadine) 10 % topical solution Apply topically 1 (one) time each day. 473 mL 5 Active povidone-iodine (Betadine) 10 % topical solution Apply topically 1 (one) time each day. 473 mL 5 Active Active Problems Problem Noted Date Diagnosed Date T2DM (type 2 diabetes mellitus) ([facility] V24, CM S/[facility] V28) 11/14/2023 Social History Tobacco Use Types [...] of 2 - Risk 2-dose series) 12/20/1983 Pneumococcal Vaccine: 50+ Years (1 [...] Additional history exists Influenza Vaccine (#1) 2024 Hepatitis B Vaccines (1 of 3 - Risk 3-dose series) 2024 Colorectal Cancer Screening: FIT-DNA (Cologuard) 04/19/2026 [...] topic Insurance MEDICAID - [place] Care Teams Social Staff Worker Relationship Specialty Start Date End Date Shell Lopez MD [address] [place] [phone] PCP - General 08/16/23
--- OUTSIDE RECORDS SUMMARY | 2024-12-23 04:31 | XMS_ITS ---
Author Organization [facility] Care Team Providers Care Chimney Repairer Name Role Phone Kelvin Radha Unavailable Unavailable Danilo Ocasio Unavailable Unavailable Owen Kelley Unavailable Unavailable Allergies and adverse reactions Code CodeSystem Substance Reaction Severity StartDate Concern Status 1191 RXNORM Aspirin Unknown 10/15/2024 active 5649827 RXNORM Influenza Vaccine Live Pneumonia and influenza (code- 226614308, SNOMED CT) Unknown 10/15/2024 active 95697 RXNORM traZODone Unknown 10/15/2024 active Care Team Name Role Address Phone Organization Dates Owen Warren PCP [address] [place] [address], [facility] (Office): : [facility] 10/15/2024 - present Radha Warren [address] [address], [facility] (Office): : [facility] 10/15/2024 - present Danilo Ocasio [address] [place] [address], [facility] (Office): : [facility] 10/15/2024 - present Encounters Encounter Type Code Code System Description Performer Discharge Disposition Service Delivery Location Date Ambulatory Encounter CPT Code = [id number] Acute on chronic hypoxemic respiratory failure Bert Watsonfidel Ornelas [facility] Address: [address] [place] [address]. 10/15 Ambulatory Encounter CPT Code = [id number] Patient encounter procedure [facility] Address: [address] [place] [address]. 10/15 Ambulatory Encounter CPT Code = [id number] Severe protein-calorie malnutrition ([place]: less than 60 percent of standard weight) Bert Miguel Ornelas [facility] Address: [address] [place] [address]. 10/15 Ambulatory Encounter CPT Code = [id number] Schizophrenia Bert Watsonfidel Ornelas [facility] Address: [address] [place] [address]. 10/15 Ambulatory Encounter CPT Code = [id number] Systolic heart failure Bert Watsonfidel Mai [facility] Address: [address] [place] [address]. 10/15 Ambulatory Encounter CPT Code = [id number] Type 2 diabetes mellitus without complication [facility] Address: [address] [place] [address]. 10/15 Ambulatory Encounter CPT Code = [id number] Cirrhosis of liver Bert Miguel Ornelas [facility] Address: [address] [place] [address]. 10/15 Ambulatory Encounter CPT Code = [id number] Anoxic encephalopathy Bert Miguel Mai [facility] Address: [address] [place] [address]. 10/15 Ambulatory Encounter CPT Code = [id number] Acquired absence of organ Bert Ornelas [facility] Address: [address] [place] [id number]. 10/15 Ambulatory Encounter CPT Code = 78814 B20 ICD 10 HUMAN IMMUNODEFICIENCY VIRUS [HIV] DISEASE Bert Ornelas [facility] Address: [address] [place] [id number]. 10/15 Ambulatory Encounter CPT Code = [id number] Chronic hepatitis C Bert Ornelas [facility] Address: [address] [place] [id number]. 10/15 Ambulatory Encounter CPT Code = [id number] Chronic kidney disease stage 2 Bert Ornelas [facility] Address: [address] [place] [id number]. 10/15 Ambulatory Encounter CPT Code = [id number] Hyperlipidemia Bert Rivera [facility] Address: [address] [place] [id number]. 10/15 Ambulatory Encounter CPT Code = [id number] Essential hypertension Bert Rivera [facility] Address: [address] [place] [id number]. 10/15 Ambulatory Encounter CPT Code = [id number] Muscle atrophy Bert Rivera [facility] Address: [address] [place] [id number] [address]. 10/15 Ambulatory Encounter CPT Code = [id number] Imaging of lung Bert Rivera [facility] Address: [address] [place] [id number] [place] [address]. 10/15 Ambulatory Encounter CPT Code = [id number] Peripheral vascular disease Bert Rivera [facility] Address: [address] [place] [address]. 10/15 Ambulatory Encounter CPT Code = [id number] Attention to gastrostomy Bert Rivera [facility] Address: [address] [place], [address], [facility]. 10/15 Ambulatory Encounter CPT Code = [id number] Diffuse spasm of esophagus Bert Rivera [facility] Address: [address] [place] [address], [address], [facility]. 10/15 Ambulatory Encounter CPT Code = [id number] Benign prostatic hyperplasia Bert Rivera [facility] Address: [address] [place] [address], [address], [facility]. 10/15 Goals Section Goals Description Status Target Date I will be free of infection, pain or bleeding in the oral cavity by/through review date. Active 01/31/2025 I plan to discharge to:To Co mmunity with Family, Pending outcome of therapy sessions, clinical medical [...] will be at reduced risk fo r skin breakdown daily through the review date. Active 01/31/2025 I will be free from catheter related trauma and infections through the review date. Active 01/31/2025 [...] s/sx of respiratory infection by/through the review date Active 01/31/2025 I will be free of fall relat ed injury through the next review date. Active 01/31/2025 I will continue to be indepe ndent and pursue activities of interest through next review. Active 01/31/2025 I will effectively cope with my feelings through the review date. Active 01/31/2025 I [...] will improve current level of function in Bed Mobility, Transfers, Eating, Dressing, Toilet Use and Personal Hygiene, ADL Score by the review date. Active 01/31/2025 I will maintain adequate nut [...] date. Active 01/31/2025 I will remain free of compli cations related to restraint use, including contractures, skin breakdown, altered mental status, isolation or withdrawal through review date. Active I will show management of my symptoms [...] Name Recorded Time Value Entered By Eating 12/22/2024 Partial/moderate assistance jocab Lying to sitting on side of bed 12/23/2024 Not assessed colan Oral hygiene 12/23/2024 Not assessed colan Personal hygiene 12/23/2024 Substantial/maximal assi stance colan Shower/bathe self 12/22/2024 Dependent aoyola Sit to lying 12/23/2024 Not assessed colan Toilet transfer 12/23/2024 Not assessed colan Toileting hygiene 12/23/2024 Not assessed colan Immunizations Immunization Status Vaccine Details Vaccine Code CodeSystem Date Notes Td(adult) unspecified formulation completed Td(adult) unspecified formulation lotNumber: [id number] [facility] [place] [facility]: Qudini Given 0.5 139 CVX created date: 10/16/2024 administer ed date: 06/29/2017 doseUOMNonc lenka:Unknow n (Influenza) AFLURIA - Quadrivalent - Standard Dose cancelled Influenza, split virus, quadrivalent, injectable, preservative free 150 CVX created date: 11/12/2024 consent date: 11/12/2024 Educated by on 11/12/2024 Medications Section Medication Name Status Code CodeSystem Dose Route Frequency Admin Type Sig Text Start Date End Date Indication Ipratropium -Albuterol Inhalation Solution 0.5-2.5 (3) MG/3ML active 42751 02 RXNORM 3 ml Inhala tion as needed PRN 3 ml via trach every 6 hours as neede d for SOB/ wheez ing 2024 - SOB/ wheezing Insulin Lispro (1 Unit Dial) Subcutaneou s Solution Pen-injecto r 100 UNIT/ML aborted 71788 52 RXNORM n/a n/a Subcut aneous before meals [...] usly befor e meals for Diabe felisa Kareni tus 12/13 Diabetes Mellitus Glucagon Emergency Kit 1 MG active 81267 7 RXNORM 1 ml Intram uscula r as needed PRN Injec t 1 ml intra muscu larly as neede d for Blood Sugar s less than 60 and uncon sciou s or unres ponsi ve, and call . 2024 - Blood Sugars Pravastatin Sodium Oral Tablet 40 MG active 25920 5 RXNORM 1 table t Oral one time a day Routin e Give 1 table t by mouth one time a day for Hyper lipid emia 2024 - Hyperlipide blake risperiDONE Oral Tablet 3 MG active 85844 2 RXNORM 2 table t Oral at [...] Amiodarone HCl Oral Tablet 200 MG active 94754 8 RXNORM 100 mg Oral one time a day Routin e Give 100 mg by mouth one time a day for ANTIA RRHYT HMICS 2024 - ANTIARRHYTH MICS Polyethylen e Glycol 3350 Powder aborted 17 gram Oral one time a day Routin e Give 17 gram by mouth one time a day for Const ipati on HOLD FOR LOOSE STOOL S 11/28 Constipatio n Flomax Capsule 0.4 MG active 75925 1 RXNORM 1 capsu le Oral at bedtime Routin e Give 1 capsu le by mouth at bedti me for benig n prost atic hyper plasi a 2024 - benign prostatic hyperplasia Aspirin Oral Tablet Chewable 81 MG active 73084 2 RXNORM 1 table t Oral one time a day Routin e Give 1 table t by mouth one time a day for Preve ntion 2024 - Prevention risperiDONE Oral Tablet 2 MG active 47154 1 RXNORM 1 table t Oral in [...] a day for GERD 2024 - GERD [place] Carbonate Oral Capsule 300 MG active 9 RXNORM 1 capsu le Oral one time a day Routin e Give 1 capsu le by mouth one time a day for Schiz ophre nicolás 2024 - Schizophren ia Docusate Sodium Oral Tablet 100 MG active 73733 79 RXNORM 1 table t Oral every 12 hours Routin e Give 1 table t by mouth every 12 hours for Const ipati on HOLD FOR LOOSE STOOL S 2024 - Constipatio n Finasteride Oral Tablet 5 MG active 44122 6 RXNORM 1 table t Oral one time a day Routin e Give 1 table t by mouth one time a day for BPH 2024 - BPH Thiamine HCl Oral Tablet 100 MG active 16633 3 RXNORM 1 table t Oral one time a day Routin e Give 1 table t by mouth one time a day for Vitam in Suppl ement 2024 - Vitamin Supplement Benztropine Mesylate Oral Tablet 1 MG active 57700 3 RXNORM 1 table t Oral every 12 hours Routin e Give 1 table t by mouth every 12 hours for Tremo rs 2024 - Tremors Genvoya Oral Tablet 150-150-200 -10 MG active 53313 19 RXNORM 1 table t Oral one time a day Routin e Give 1 table t by mouth one time a day for Antiv iral 2024 - Antiviral hydrOXYzine HCl Oral Tablet 25 MG active 22560 8 RXNORM 1 table t Oral as needed PRN Give 1 table t by mouth every 6 hours as neede d for anxie ty 2024 - anxiety Folic Acid Oral Tablet 1 MG active 83116 0 RXNORM 1 mg Oral one time a day Routin e Give 1 mg by mouth one time a day for Suppl ement 2024 - Supplement Acetaminoph en Oral Tablet 325 MG active 15965 2 RXNORM 2 table t Oral as needed PRN Give 2 table t by mouth every 6 hours as neede d for Pain Total Dose 650mg * *DO NOT EXCEE D 3 grams in 24 hours AND Give 2 table t by mouth every 6 hours as neede d for [place] ratur e great er than 101.F Total Dose 650mg * *DO NOT EXCEE D 3 grams in 24 hours 2024 - Pain 95775 2 RXNORM 2 table t Oral as needed PRN Give 2 table t by mouth every 6 hours as neede d for Pain Total Dose 650mg * *DO NOT EXCEE D 3 grams in 24 hours AND Give 2 table t by mouth every 6 hours as neede d for [place] ratur e great er than 101.F Total Dose 650mg * *DO NOT EXCEE D 3 grams in 24 hours 2024 - Temperature greater than 101.F Acetaminoph en Oral Tablet 325 MG active 65095 2 RXNORM 2 table t Oral as needed PRN Give 2 table t by mouth every 6 hours as neede d for Pain Total Dose 650mg * *DO NOT EXCEE D 3 grams in 24 hours AND Give 2 table t by mouth every 6 hours as neede d for [place] ratur e great er than 101.F Total Dose 650mg * *DO NOT EXCEE D 3 grams in 24 hours 2024 - Pain 66145 2 RXNORM 2 table t Oral as needed PRN Give 2 table t by mouth every 6 hours as neede d for Pain Total Dose 650mg * *DO NOT EXCEE D 3 grams in 24 hours AND Give 2 table t by mouth every 6 hours as neede d for [place] ratur e great er than 101.F Total Dose 650mg * *DO NOT EXCEE D 3 grams in 24 hours 2024 - Temperature greater than 101.F Insulin Glargine Solution 100 UNIT/ML aborted 1 RXNORM 8 unit Subcut aneous at bedtime Routin e Injec t 8 unit subcu taneo usly at bedti me for diabe felisa 12/11 diabetes Carvedilol Oral Tablet 6.25 MG active 1 RXNORM 1 table t Oral two times a day Routin e Give 1 table t by mouth two times a day for HTN 2024 - HTN Glucose Gel 40 % active 13485 4 RXNORM 1 appli catio n Oral as needed PRN Give 1 appli catio n by mouth as neede d for Blood Sugar s less than 60 and consc ious, reche ck blood sugar in 15-mi n if blood sugar is less than 60 may repea t x1 and call 2024 - Blood Sugars Glucagon Emergency Kit 1 MG aborted 50526 7 RXNORM 1 ml Intram uscula r as needed PRN Injec t 1 ml intra muscu larly as neede d for Blood Sugar s less than 60 and uncon sciou s or unres ponsi ve, and call . 11/24 Blood Sugars BD AutoShield Duo Miscellaneo us 30G X 5 MM active 1 pen needl e Subcut aneous as needed PRN Injec t 1 pen needl e subcu taneo usly as neede d for with insul in admin istra tion 2024 - with insulin administrat ion Polyethylen e Glycol 3350 Powder active 17 gram Oral one time a day Routin e Give 17 gram by mouth one time a day for Const ipati on HOLD FOR LOOSE STOOL S/MIX IN 4 OUNCE S OF FLUID OF CHOI E 2024 - Constipatio n Lansoprazol e Oral Tablet Delayed Release Disintegrat ing 15 MG active 03952 1 RXNORM 1 table t Oral one time a day Routin e Give 1 table t by mouth one time a day for anti ulcer 2024 - anti ulcer Augmentin Oral Tablet 500-125 MG aborted 90061 0 RXNORM 1 table t Oral two times a day Routin e Give 1 table t by mouth two times a day relat ed to ACUTE AND CHRON IC RESPI RATOR Y FAILU RE WITH HYPOX IA (J96. 21) until 12/13 23:59 12/10 - Doxycycline Monohydrate Oral Tablet aborted 100 mg Oral two times a day Routin e Give 100 mg by mouth two times a day relat ed to ACUTE AND CHRON IC RESPI RATOR Y FAILU RE WITH HYPOX IA (J96. 21) until 12/13 23:59 12/10 - Doxycycline Monohydrate Oral Tablet complet ed 100 mg Oral two times a day Routin e Give 100 mg by mouth two times a day for pneum onia relat ed to ACUTE AND CHRON IC RESPI RATOR Y FAILU RE WITH HYPOX IA (J96. 21) for 3 Days 12/14 pneumonia Augmentin Oral Tablet 500-[place] [address] 0 RXNORM 1 table t Oral two times a day Routin e Give 1 table t by mouth two times a day for pneum onia for 3 Days 12/14 pneumonia Mental Status Section Date Assessment Total Score Description 12/07/2024 CAM 0 No delirium ind icated 11/28/2024 CAM 0 No delirium ind icated Insurance Providers Plan of Treatment Section Interventions Intervention Code Code System Display Name Proposed D ate Problems Problem # Description Date of onset Resolved Date Code CodeSystem Concern Status 1 ACQUIRED ABSENCE OF RIGHT LEG BELOW KNEE [address] active 2 ACUTE AND CHRONIC RESPIRATORY FAILURE WITH HYPOXIA 10/16/[address] active 3 ANOXIC BRAIN DAMAGE, NOT ELSEWHERE CLASSIFIED 10/16/[address] active 4 BENIGN PROSTATIC HYPERPLASIA WITHOUT LOWER URINARY TRACT SYMPTOMS 10/16/[address] active 5 CHRONIC KIDNEY DISEASE, STAGE 2 (MILD) 10/16/[address] active 6 CHRONIC VIRAL HEPATITIS C 10/16/[address] active 7 DYSKINESIA OF ESOPHAGUS 10/16/[address] active 8 ENCOUNTER FOR ATTENTION TO GASTROSTOMY 10/16/[address] active 9 ENCOUNTER FOR ATTENTION TO TRACHEOSTOMY 10/16/[address] active 10 ESSENTIAL (PRIMARY) HYPERTENSION 10/16/[address] active 11 HYPERLIPIDEMIA, UNSPECIFIED 10/16/[address] active 12 MUSCLE WASTING AND ATROPHY, NOT ELSEWHERE CLASSIFIED, MULTIPLE SITES 10/16/[address] active 13 OTHER CIRRHOSIS OF LIVER 10/16/1919933007 SNOMED CT active 14 OTHER NONSPECIFIC ABNORMAL FINDING OF LUNG FIELD 10/16/[address] active 15 PERIPHERAL VASCULAR DISEASE, UNSPECIFIED 10/16/[address] active 16 SCHIZOPHRENIA, UNSPECIFIED 10/16/[address] active 17 TYPE 2 DIABETES MELLITUS WITHOUT COMPLICATIONS 10/16/[address] active 18 UNSPECIFIED SEVERE PROTEIN-CALORIE MALNUTRITION 10/16/[address] active 19 UNSPECIFIED SYSTOLIC (CONGESTIVE) HEART FAILURE 10/16/[address] active Reason for Referral No Reasons for Referral Entered Social History Social History Observation Description Start Date End Date Code Code System Current Smoking Status Tobacco smoking consumption unknown 198757458 SNOMED CT Sex Assigned At Male 1965 76524-8 [facility] Gender Identity Sexual Orientation Vital Signs Code Code System Vitals Name Values and Units Timing Information 9279-1 [facility] Respiratory Rate Value=16.0 Units=/m in 12/23/2024 8867-4 [facility] Heart rate Value=88.0 Units=/min 93038-4 [facility] O2 % BldC Oximetry Value=96.0 Units= % 12/23/2024 2339-0 [facility] Blood Sugar Txyik=123.0 Units=mg/dL 12/23/2024 8462-4 [facility] Blood Pressure-Diastolic Value=66 Un its=mmHg 12/22/2024 8480-6 [facility] Blood Pressure-Systolic Ajjea=096 Un its=mmHg 12/22/2024 8310-5 [facility] Body Temperature Value=97.8 Units= F 12/22/2024 10342-0 [facility] Pain Level Value=0.0 12/22/2024 30190-1 [facility] Weight Ufpvv=209.0 Units=Lbs 07/2024 8302-2 [facility] Height Value=68.0 Units=Inches 10/16/2024
[2024-12-23 05:37] VITALS: BP 112/61; PULSE 88; RESP 18; TEMP 36.4; O2SAT 97
[2024-12-23 05:41] VITALS: BP 112/61; PULSE 88; RESP 18; TEMP 36.4; O2SAT 97
== END 2024-12-23 06:39 | disposition home or self-care (01) ==
PROVIDERS: Emergency Provider Emergency Medicine; PCP Student in an Organized Health Care Education/Training Program
DX: J95.03 Malfunction of tracheostomy stoma (principal); Z79.899 Other long term (current) drug therapy; Z87.891 Personal history of nicotine dependence
CPT/HCPCS: 99283

== ENCOUNTER 2024-12-30 06:10 | Outpatient (REF) | payer MEDICAID, SELFPAY ==
--- OUTSIDE RECORDS SUMMARY | 2024-12-30 06:12 | XMS_ITS | Clinical Summary ---
Author Organization [address] [facility] Address [address] [place] [address] Phone Care Team Providers Care Crystal Gazer Name Role Phone Shell Lopez MD Primary Care Provider [phone] Allergies Active Allergy Reactions Criticality Noted Date Comments Clonazepam 11/16/2023 Quetiapine 11/16/2023 Trazodone 11/16/2023 Medications povidone-iodine (Betadine) 10 % topical solution Apply topically 1 (one) time each day. 473 mL 5 Active povidone-iodine (Betadine) 10 % topical solution Apply topically 1 (one) time each day. 473 mL 5 Active Active Problems Problem Noted Date Diagnosed Date T2DM (type 2 diabetes mellitus) (CMS/[facility] V24, CM S/[facility]ER[facility] V28) 11/14/2023 Social History Tobacco Use [...] topic Insurance [place] - [place] Care Teams Crystal Gazer Relationship Specialty Start Date End Date Shell Lopez MD [address] [place] [phone] PCP - General 08/16/23
[2024-12-30 06:13] LABS: MANUAL DIFF FLAG NO
[2024-12-30 06:59] LABS: Hematocrit 30.3 % (42.0-52.0); Hemoglobin 9.5 g/dl (14.0-18.0); Imm Gran Abs Auto 0.04 X10*3/uL (0.00-0.03); Imm Gran Pct Auto 0.5 % (0.0-0.4); Lymphocytes Absolute Auto 1.5 X10*3/uL (1.2-4.9); Mean Corpuscular HGB Conc 31.4 g/dl (31.0-36.0); Mean Corpuscular Hemoglobin 28.1 pg (27.0-33.0); Mean Corpuscular Volume 89.6 fL (80.0-98.0); NRBC Abs Auto 0.000 X10*3/uL (0.0-0.012); NRBC Pct Auto 0.0 /100WBC (0.0-0.2); Platelet Count 254 X10*3/uL (160-400); Red Blood Count 3.38 X10*6/uL (4.60-5.80); White Blood Count 8.1 X10*3/uL (4.8-10.8)
[2024-12-30 07:10] LABS: Anion Gap 13 (12-20); Blood Urea Nitrogen 29 mg/dL (9-16); Calcium 9.6 mg/dL (8.4-10.2); Carbon Dioxide 24 mmol/L (22-29); Chloride 108 mmol/L (96-108); Estimated Glomerular Filt Rate > 60; Potassium 4.4 mmol/L (3.3-5.1); Sodium 141 mmol/L (135-145)
== END 2024-12-30 06:11 | disposition home or self-care (01) ==
LOC: HO.MMNH1L 06:10
PROVIDERS: Visit Provider Physician Assistant Medical
DX: Z13.89 Encounter for screening for other disorder (principal)
CPT/HCPCS: 36415; 80048; 85025

== ENCOUNTER 2025-01-13 07:43 | Outpatient (REF) | payer MEDICAID, SELFPAY ==
[2025-01-13 07:45] LABS: MANUAL DIFF FLAG NO
--- OUTSIDE RECORDS SUMMARY | 2025-01-13 07:46 | XMS_ITS | Clinical Summary ---
Author Organization [address] [facility] Address [address] [place] [address] Phone Care Team Providers Care Item Processor Name Role Phone Shell Lopez MD Primary Care Provider [phone] Allergies Active Allergy Reactions Criticality Noted Date Comments Clonazepam 11/16/2023 Quetiapine 11/16/2023 Trazodone 11/16/2023 Medications povidone-iodine (Betadine) 10 % topical solution Apply topically 1 (one) time each day. 473 mL 5 Active povidone-iodine (Betadine) 10 % topical solution Apply topically 1 (one) time each day. 473 mL 5 Active Active Problems Problem Noted Date Diagnosed Date T2DM (type 2 diabetes mellitus) 11/14/2023 Social History Tobacco Use Types Packs/Day [...] topic Insurance [place] - [place] Care Teams Item Processor Relationship Specialty Start Date End Date Shell Lopez MD [address] [place] [address] [phone] PCP - General 08/16/23
[2025-01-13 08:34] LABS: Hematocrit 33.6 % (42.0-52.0); Hemoglobin 10.6 g/dl (14.0-18.0); Imm Gran Abs Auto 0.05 X10*3/uL (0.00-0.03); Imm Gran Pct Auto 0.5 % (0.0-0.4); Lymphocytes Absolute Auto 1.6 X10*3/uL (1.2-4.9); Mean Corpuscular HGB Conc 31.5 g/dl (31.0-36.0); Mean Corpuscular Hemoglobin 27.9 pg (27.0-33.0); Mean Corpuscular Volume 88.4 fL (80.0-98.0); NRBC Abs Auto 0.000 X10*3/uL (0.0-0.012); NRBC Pct Auto 0.0 /100WBC (0.0-0.2); Platelet Count 235 X10*3/uL (160-400); Red Blood Count 3.80 X10*6/uL (4.60-5.80); White Blood Count 9.4 X10*3/uL (4.8-10.8)
[2025-01-13 08:49] LABS: Anion Gap 16 (12-20); Blood Urea Nitrogen 35 mg/dL (9-16); Calcium 9.7 mg/dL (8.4-10.2); Carbon Dioxide 25 mmol/L (22-29); Chloride 106 mmol/L (96-108); Estimated Glomerular Filt Rate > 60; Potassium 4.5 mmol/L (3.3-5.1); Sodium 142 mmol/L (135-145)
== END 2025-01-13 07:44 | disposition home or self-care (01) ==
LOC: HO.MMNH2L 07:43
PROVIDERS: Visit Provider Physician Assistant Medical
DX: J96.21 Acute and chronic respiratory failure with hypoxia (principal)
CPT/HCPCS: 36415; 80048; 85025

== ENCOUNTER 2025-01-14 06:31 | Outpatient (REF) | payer MEDICAID, SELFPAY ==
--- OUTSIDE RECORDS SUMMARY | 2025-01-14 06:33 | XMS_ITS | Clinical Summary ---
Author Organization [address] [facility] Address [address] [place] [address] Phone Care Team Providers Care Bradder Name Role Phone Shell Lopez MD Primary Care Provider [phone] Allergies Active Allergy Reactions Criticality Noted Date [...] topic Insurance [place] - [place] Care Teams Bradder Relationship Specialty Start Date End Date Shell Lopez MD [address] [place] [phone] PCP - General 08/16/23
[2025-01-14 06:35] LABS: MANUAL DIFF FLAG NO
[2025-01-14 07:14] LABS: Hematocrit 30.6 % (42.0-52.0); Hemoglobin 9.8 g/dl (14.0-18.0); Imm Gran Abs Auto 0.04 X10*3/uL (0.00-0.03); Imm Gran Pct Auto 0.4 % (0.0-0.4); Lymphocytes Absolute Auto 1.6 X10*3/uL (1.2-4.9); Mean Corpuscular HGB Conc 32.0 g/dl (31.0-36.0); Mean Corpuscular Hemoglobin 28.0 pg (27.0-33.0); Mean Corpuscular Volume 87.4 fL (80.0-98.0); NRBC Abs Auto 0.000 X10*3/uL (0.0-0.012); NRBC Pct Auto 0.0 /100WBC (0.0-0.2); Platelet Count 237 X10*3/uL (160-400); Red Blood Count 3.50 X10*6/uL (4.60-5.80); White Blood Count 9.4 X10*3/uL (4.8-10.8)
[2025-01-14 07:47] LABS: Alanine Aminotransferase 10 U/L (0-40); Albumin Level 3.7 g/dL (3.5-5.0); Alkaline Phosphatase 89 U/L (39-117); Anion Gap 11 (12-20); Aspartate Amino Transferase 20 U/L (5-37); Blood Urea Nitrogen 35 mg/dL (9-16); Calcium 9.7 mg/dL (8.4-10.2); Carbon Dioxide 27 mmol/L (22-29); Chloride 106 mmol/L (96-108); Estimated Glomerular Filt Rate 59; Potassium 4.4 mmol/L (3.3-5.1); Sodium 140 mmol/L (135-145); Total Protein 6.8 g/dL (6.5-8.0)
[2025-01-14 07:57] LABS: Procalcitonin 0.04 ng/mL
== END 2025-01-14 06:32 | disposition home or self-care (01) ==
LOC: HO.MMNH3L 06:31
PROVIDERS: Visit Provider Physician Assistant Medical
DX: J96.21 Acute and chronic respiratory failure with hypoxia (principal)
CPT/HCPCS: 36415; 80053; 84145; 85025

== ENCOUNTER 2025-01-16 21:51 | Observation (INO) | payer MEDICAID, SELFPAY ==
--- NOTE | ~2025-01-16 | IR_ITS ---
Procedure: Gastrojejunostomy tube replacement Preprocedure diagnosis: Feeding intolerance INDICATION: Feeding intolerance and patient's tube fell out at facility Procedure summary: Consent was obtained and signed. A preprocedure timeout was performed. The patient was placed supine on the fluoroscopy table. The abdomen was prepped and draped. Through a gastrostomy tube, a wire and catheter were inserted until navigated to the jejunum. The existing gastrostomy tube was removed over the wire and a new 18 [place] by 45 cm jejunostomy tube was inserted. Contrast injection demonstrated the distal tip of the tube in the jejunum and the fluoroscopic image was saved. The tubes balloon was inflated with 10 mL of sterile water. The disc was secured to the skin surface. A dressing was applied. The patient tolerated the procedure well. Medications: None. Moderate sedation: N/A Radiation: 173.47 mGy, 15.1 min FT IR/IR replace tube gastr jejun IMPRESSION: Successful gastrojejunostomy tube replacement. PLAN: Patient should get routine exchange in 3 months. The procedure was performed by Jasbir King NP and supervised by Reji West M.D. Electronically signed by: Reji West MD 01/30/2025 02:37 PM [facility] Workstation: [id number]
[2025-01-16 22:00] VITALS: BP 126/77; PULSE 80; O2SAT 96
--- NOTE | 2025-01-16 22:15 | ED.GENADULT ---
HPI - General Adult General Chief complaint: General Medical Stated complaint: JG TUBE PULLED OUT Time Seen by Provider: 01/16/25 21:57 Source: patient and EMS Mode of arrival: EMS Limitations: no limitations History of Present Illness ED Provider: Dr. Emily Mcnair HPI narrative: Patient comes to the emergency room from a senior living facility. According to the staff, patient's gastro jejunostomy tube got clogged. For unclear reason, they decided it would be best to pull it out completely. Then they sent the patient to the emergency room. Patient has no complaints Related Data Home Medications ?Medication ?Instructions ?Recorded ?Confirmed benztropine 2 mg tablet 1 mg PO BID 02/16/21 12/07/24 elviteg 150 mg-cob 150 mg-emtricit 1 tab PO DAILY 02/16/21 12/07/24 200 mg-tenofo alafenam 10 mg tablet (Genvoya) lithium carbonate 300 mg tablet 300 mg PO DAILY 02/16/21 12/07/24 pravastatin 40 mg tablet 40 mg PO BEDTIME 02/16/21 12/07/24 risperidone 3 mg tablet 6 mg PO BEDTIME 02/16/21 12/07/24 omeprazole 20 mg capsule,delayed 20 mg PO DAILY@0630 03/05/21 12/07/24 release polyethylene glycol 3350 17 17 g PO DAILY 09/02/21 12/07/24 gram/dose oral powder (Gavilax) risperidone 2 mg tablet 2 mg PO DAILY@1200 01/01/22 12/07/24 sennosides 8.6 mg tablet (senna) 17.2 mg PO DAILY@0900 01/01/22 12/07/24 docusate sodium 100 mg capsule 100 mg PO BID 02/08/24 12/07/24 insulin glargine 100 unit/mL (3 8 unit subcut BEDTIME 02/08/24 12/07/24 mL) subcutaneous pen (Lantus Solostar U-100 Insulin) acetaminophen 325 mg tablet 325 mg PO QID PRN Pain (Scale 12/07/24 12/07/24 Score 1-3) amiodarone 100 mg tablet 100 mg PO DAILY 12/07/24 12/07/24 aspirin 81 mg tablet,delayed 81 mg PO DAILY 12/07/24 12/07/24 release carvedilol 6.25 mg tablet 6.25 mg PO BID 12/07/24 12/07/24 folic acid 1 mg tablet 1 mg PO DAILY 12/07/24 12/07/24 hydroxyzine HCl 25 mg tablet 25 mg PO QID PRN Anxiety 12/07/24 12/07/24 insulin lispro 100 unit/mL 6 - 14 sliding scale dose subcut 12/07/24 12/07/24 subcutaneous pen USEASDIRECTD ipratropium bromide 0.02 % 2.5 ml inhalation Q6H PRN Wheezing 12/07/24 12/07/24 solution for inhalation lansoprazole 15 mg capsule,delayed 15 mg PO DAILY 12/07/24 12/07/24 release multivitamin 1 tab PO DAILY 12/07/24 12/07/24 tamsulosin 0.4 mg capsule (Flomax) 0.4 mg PO BEDTIME 12/07/24 12/07/24 thiamine HCl (vitamin B1) 100 mg 100 mg PO DAILY 12/07/24 12/07/24 tablet Previous Rx's ?Medication ?Instructions ?[place] [facility] 01/24/22 finasteride 5 mg tablet 5 mg PO DAILY 90 days #90 tabs 04/09/24 amoxicillin 500 mg-potassium 1 tab PO BID 3 days #6 tabs 12/10/24 clavulanate 125 mg tablet (Augmentin) doxycycline monohydrate 100 mg 100 mg PO Q12H 3 days #6 caps 12/10/24 capsule Allergies Allergy/AdvReac Type Severity Reaction Status Date / Time acetaminophen (From TYLENOL) Allergy Unknown UNKNOWN Verified 01/16/25 22:38 aspirin (ASA) Allergy Unknown AGITATION Verified 01/16/25 22:38 chlorpromazine (From Allergy Unknown Verified 01/16/25 22:38 Thorazine) clonazepam (From Klonopin) Allergy Rash Verified 01/16/25 22:38 trazodone (TRAZODONE) AdvReac Unknown HYPER Verified 01/16/25 22:38 Review of Systems Review of Systems: Constitutional : No Weight loss, No Fever, No Chills, No Night Sweats, No Fatigue, No Malaise ENT/Mouth : No Hearing loss, No Ear Pain, No Nasal Congestion, No Sinus Pain, No Hoarseness, No sore throat, No Rhinorrhea, No Swallowing Difficulty Eyes: No Eye Pain, No Swelling, No Redness, No Foreign Body, No Discharge, No Vision Changes Cardiovascular : No Chest Pain, No SOB, No Dyspnea on Exertion, No Orthopnea, No Edema, No Palpitations Respiratory : No Cough, No Sputum, No Wheezing, No Smoke Exposure, No Dyspnea Gastrointestinal : No Nausea, No Vomiting, No Diarrhea, No Constipation, No abdominal Pain, No Hematochezia, No Melena. GJ tube has been pulled out Genitourinary : no irregular bleeding, No Dysuria, No Urinary Frequency, No Hematuria, No Urinary Incontinence, No Urgency, No Flank Pain, No Urinary Flow Changes, No Hesitancy Musculoskeletal : No joint pain, No Myalgias, No Joint Swelling Skin : No Skin Lesions, No rash Neuro : No Weakness, No Numbness, No Paresthesias, No Loss of Consciousness, No Dizziness, No Headache Psych : No Anxiety/Panic, No Depression, No SI/HI/AH/VH, No Social Issues, Heme/Lymph: No Bruising, No Bleeding,No Lymphadenopathy Endocrine : No Polyuria, No Polydipsia, No Temperature Intolerance PMFSH Past Medical History Medical History Diabetes Mood disorder Elevated C-reactive protein (CRP) Elevated erythrocyte sedimentation rate Enterococcal bacteremia Callus of foot Eschar of foot Diabetic foot ulcers Sepsis Osteomyelitis of left foot Open wnd foot-complicated HIV (human immunodeficiency virus infection) Hepatitis Chronic prostatitis Erectile dysfunction due to arterial insufficiency BPH w urinary obs/LUTS Urinary hesitancy Surgical History No pertinent past surgical history Family History Family History Father No problems noted. Mother No problems noted. Social History Social History Household Members: None Household Members Other:: prison Housing: Assisted Living Facility Housing Other:: care home Do you presently have visiting nurse or other home services: Yes Alcohol intake: never Comment: RIGHT BKA Patient Tobacco Use Status: Former Tobacco user Tobacco use type: Cigarette Cigarette Packs Per Day: 1 Cigarettes Per Day: 20.0 Smoked in Last 30 Days: No Second Hand Smoke Exposure: Yes Use of substances other than those prescribed or required for medical reasons: No Advance Directives: Yes Advance Directives on File: Yes Advance Directives Date on File: 12/09/24 Do you have a plan to hurt others: No Plan service: No Current occupational status: unemployed Physical Exam ED Exam Exam: Appearance: Alert. Oriented X3. No acute distress. Eyes: Pupils equal, round and reactive to light. ENT: Pharynx normal. Neck: Normal inspection. Neck supple. No lymph nodes noted. No crepitus CVS: Normal heart rate and rhythm. Pulses normal. Normal S1 and S2 Respiratory: No respiratory distress. Breath sounds normal. No Wheezing. No rales Abdomen: Soft and nontender. No rigidity. No distention. The GJ tube foramen is patent Skin: Skin warm and dry. Normal skin color. Normal skin turgor. Extremities: No lower extremity edema. No Lacerations. No Rash Neuro: Oriented X 3. No motor deficit. No sensory deficit. Moving all extremities. No slurred speech. CN 2 through 12 grossly intact Psych: calm, cooperative, normal affect Vital Signs: Vital Signs - 24 hr 01/16/25 22:30 Temperature 97.9 F Pulse Rate 73 Respiratory Rate 26 H Pulse Oximetry 100 Oxygen Delivery Method Room Air BMI result Body Mass Index 21.1 Medical Decision Making Medical Decision Making MDM Narrative: Patient will need Interventional Radiology to reinsert the GJ tube. Temporarily, to prevent the stoma from closing, we inserted Cesar G-tube 16 Hungarian which the same size as his GJ tube I discussed the patient with our hospitalist Dr. Cuevas, patient will be admitted, patient will need an IR consult tomorrow to rinse her the GJ tube Discharge Plan Discharge Clinical Impression: Encounter for gastrojejunal (GJ) tube placement Patient Disposition: Admitted As Inpatient Print Language: Swedish
[2025-01-16 22:30] VITALS: PULSE 73; RESP 26; TEMP 36.6; O2SAT 100; BMI 21.1
--- NOTE | 2025-01-16 22:39 | PC.NURSE ---
Pt comes from facility w/ removed g/jtube removed secondary to being blocked. Pt has no c/o's
--- OUTSIDE RECORDS SUMMARY | 2025-01-16 23:47 | XMS_ITS | Clinical Summary ---
Author Organization [address] [facility] Address [address] [place] [address] Phone Care Team Providers Care Book Packer Name Role Phone Shell Lopez MD Primary Care Provider [phone] Allergies Active Allergy Reactions Criticality Noted Date [...] topic Insurance MEDICAID - [place] Care Teams Book Packer Relationship Specialty Start Date End Date Shell Lopez MD [address] [place] [address] [phone] PCP - General 08/16/23
--- OUTSIDE RECORDS SUMMARY | 2025-01-16 23:47 | XMS_ITS ---
Author Organization [facility] Care Team Providers Care Production Lead Name Role Phone Alvina Mai Unavailable Unavailable Radha Warren Unavailable Unavailable Denae Jean Unavailable Unavailable Danilo Ocasio Unavailable Unavailable Owen Kelley Unavailable Unavailable Allergies and adverse reactions Code CodeSystem Substance Reaction Severity StartDate Concern Status 1191 RXNORM Aspirin Unknown 10/15/2024 active 8907927 RXNORM Influenza Vaccine Live Pneumonia and influenza (code- 069269283, SNOMED CT) Unknown 10/15/2024 active 30069 RXNORM traZODone Unknown 10/15/2024 active Care Team Name Role Address Phone Organization Samy Kelley PCP [address] [place] [address], [facility] (Office): : [facility] 10/15/2024 - present Alvina Jacinto [address] [address], [facility] (Office): : [facility] 10/15/2024 - present Radha Warren [address] [place] [address], [facility] (Office): : [facility] 10/15/2024 - present Denae Jean [address] [place], [address], [facility] (Office): : [facility] 10/15/2024 - present Danilo Ocasio [address] [place], [address], [facility] (Office): : [facility] 10/15/2024 - present Imaging Narrative Note Date Imaging Narrative No te 01/14/2025 XRAY CHEST 2 VIEWSee NoteFINDINGS: There is a focal infiltrate or possibly a mass at the right lung base. The lungs otherwise appear clear. A small right pleural effusion is present. The heart is normal in size. Hilar areas are normal. Pulmonary vasculature is normal. A tracheostomy tube is present. There appears to be a feeding tube in the stomach.See NoteCONCLUSION: There is a focal infiltrate or possibly a mass at the right lung base. I suspect this represents pneumonia but short-term follow-up films are recommended to evaluate for clearing. A small right pleural effusion is present.ELECTRONICALLY SIGNED BY FERDINAND SANTILLAN M.D. 01/14/2025 11:36:32 AM EST.Reason for Study: A37.90 WHOOPING COUGH, UNSPECIFIED SPECIES WITHOUT PNEUMONIAPrincipal Result Door Captain: FERDINAND SANTILLAN ([id number])Nurse Assessor: SAFIA MENDOZA (BBIRKS)Senior Software Qa Engineer Nurse Assessor: WILBERTO Guzman Encounter Type Code Code System Description Performer Discharge Disposition Service Delivery Location Date Ambulatory Encounter CPT Code = [id number] Acute on chronic hypoxemic respiratory failure Bert Rivera [facility] Address: [address] [place] [address], [address], [facility] [place]. 10/15 Ambulatory Encounter CPT Code = [id number] Patient encounter procedure Bert Rivera [facility] Address: [address] [place] [address], [address]. 10/15 Ambulatory Encounter CPT Code = [id number] Severe protein-calorie malnutrition ([place]uevas: less than 60 percent of standard weight) Bert Lockettrobert Ornelas [facility] Address: [address] [place] [address]. 10/15 Ambulatory Encounter CPT Code = [id number] Schizophrenia Bert Rivera [facility] Address: [address] [place] [address]. 10/15 Ambulatory Encounter CPT Code = [id number] Systolic heart failure Bert Rivera [facility] Address: [address] [place] [address]. 10/15 Ambulatory Encounter CPT Code = [id number] Type 2 diabetes mellitus without complication Bert Watsonfidel Ornelas [facility] Address: [address] [place] [address]. 10/15 Ambulatory Encounter CPT Code = [address] Cirrhosis of liver Bert Rivera [facility] Address: [address] [place] [address]. 10/15 Ambulatory Encounter CPT Code = [id number] Anoxic encephalopathy Bert Rivera [facility] Address: [address] [place] [address]. 10/15 Ambulatory Encounter CPT Code = [id number] Acquired absence of organ Bert Rivera [facility] Address: [address] [place] [address]. 10/15 Ambulatory Encounter CPT Code = 28758 B20 ICD 10 HUMAN IMMUNODEFICIENCY VIRUS [HIV] DISEASE Bert Lockettrobert Ornelas [facility] Address: [address] [place] [address]. 10/15 Ambulatory Encounter CPT Code = [id number] Muscle weakness Bert Watsonfidel Ornelas [facility] Address: [address] [place] [address]. 10/15 Ambulatory Encounter CPT Code = [address] Diffuse spasm of esophagus Bert Watsonfidel Ornelas [facility] Address: [address] [place] [address]. 10/15 Ambulatory Encounter CPT Code = [id number] Benign prostatic hyperplasia Bert Watsonfidel Ornelas [facility] Address: [address] [place] [address]. 10/15 Ambulatory Encounter CPT Code = [id number] Peripheral vascular disease Bert Watsonfidel Ornelas [facility] Address: [address] [place] [address]. 10/15 Ambulatory Encounter CPT Code = [id number] Chronic hepatitis C Bert Watsonfidel Ornelas [facility] Address: [address] [place] [address]. 10/15 Ambulatory Encounter CPT Code = [id number] Chronic kidney disease stage 2 Bert Watsonfidel Ornelas [facility] Address: [address] [place] [address]. 10/15 Ambulatory Encounter CPT Code = [address] Hyperlipidemia Bert Rivera Johnson [facility] Address: [address] [place] [address]. 10/15 Ambulatory Encounter CPT Code = [id number] Essential hypertension Bert Miguel Ornelas [facility] Address: [address] [place] [address]. 10/15 Ambulatory Encounter CPT Code = [address] Muscle atrophy Bert Miguel Ornelas [facility] Address: [address] [place], [place] [address]. 10/15 Ambulatory Encounter CPT Code = [id number] Imaging of lung Bert Miguel Ornelas [facility] Address: [address] [facility] [address], [place], [address], [facility] [place]. 10/15 Ambulatory Encounter CPT Code = [id number] Attention to gastrostomy Bert Rivera [facility] Address: [address] [facility] [address], [place], [address], [facility] [place]. 10/15 Goals Section Goals Description Status Target [...] will be at reduced risk fo r mady or spreading multi-drug resistant organisms through the use of Enhanced Barrier Precautions. Active 01/31/2025 I will be at reduced [...] through the review date. Active 01/31/2025 My risk for respiratory comp lications related to my shortness of breath will be mitigated through the review date. Active 01/07 My skin integrity will be im proved or maintained by next review date. Active 01/31/2025 The resident's advance direc tives are in effect and their wishes will be carried out through the next review. Active Functional Status Code Name Recorded Time Value Entered By Eating 01/16/2025 Independent efleur Lying to sitting on side of bed 01/16/2025 Dependent efleur Oral hygiene 01/16/2025 Dependent efleur Personal hygiene 01/16/2025 Dependent efleur Shower/bathe self 01/16/2025 Dependent nrodriguez Sit to lying 01/16/2025 Dependent efleur Toilet transfer 01/16/2025 Dependent efleur Toileting hygiene 01/16/2025 Dependent efleur Immunizations Immunization Status Vaccine Details Vaccine Code CodeSystem Date Notes (Tetanus, Diphtheria, and Acellular Pertussis) Tdap completed tetanus toxoid, reduced diphtheria toxoid, and acellular pertussis vaccine, adsorbed 115 CVX created date: 01/08/2025 administer ed date: 01/16/2019 Td(adult) unspecified formulation completed Td(adult) unspecified formulation lotNumber: [id number] Mfg: [employer] Given 0.5 139 CVX created date: 10/16/2024 administer ed date: 06/29/2017 doseUOMNonc lenka:Unknow n (Influenza) AFLURIA - Quadrivalent - Standard Dose cancelled Influenza, split virus, quadrivalent, injectable, preservative free 150 CVX created date: 11/12/2024 consent date: 11/12/2024 Educated by on 01/15/2025 allergic to vaccine (COVID-19) Updated [employer] Vaccine completed SARS-COV-2 (COVID-19) vaccine, mRNA, spike protein, LNP, preservative free, deejay-sucrose, 30 mcg/0.3 mL dose 309 CVX created date: 01/08/2025 administer ed date: 02/09/2023 Medications Section Medication Name Status Code CodeSystem Dose Route Frequency Admin Type Sig Text Start Date End Date Indication Ipratropium -Albuterol Inhalation Solution 0.5-2.5 (3) MG/3ML active 63544 02 RXNORM 3 ml Inhala tion as needed PRN 3 ml via trach every 6 hours as neede d for SOB/ wheez ing 2024 - SOB/ wheezing Glucagon Emergency Kit 1 MG active 23515 7 RXNORM 1 ml Intram uscula r as needed PRN Injec t 1 ml intra muscu larly as neede d for Blood Sugar s less than 60 and uncon sciou s or unres ponsi ve, and call MD. 2024 - Blood Sugars Pravastatin Sodium Oral Tablet 40 MG active 52718 5 RXNORM 1 table t Oral one time a day Routin e Give 1 table t by mouth one time a day for Hyper lipid emia 2024 - Hyperlipide blake risperiDONE Oral Tablet 3 MG active 62209 2 RXNORM 2 table t Oral at [...] Amiodarone HCl Oral Tablet 200 MG active 15831 8 RXNORM 100 mg Oral one time a day Routin e Give 100 mg by mouth one time a day for ANTIA RRHYT HMICS 2024 - ANTIARRHYTH MICS Flomax Capsule 0.4 MG active 25818 1 RXNORM 1 capsu le Oral at bedtime Routin e Give 1 capsu le by mouth at bedti me for benig n prost atic hyper plasi a 2024 - benign prostatic hyperplasia Aspirin Oral Tablet Chewable 81 MG active 56323 2 RXNORM 1 table t Oral one time a day Routin e Give 1 table t by mouth one time a day for Preve ntion 2024 - Prevention risperiDONE Oral Tablet 2 MG active 07596 1 RXNORM 1 table t Oral in [...] a day for GERD 2024 - GERD Ferron Carbonate Oral Capsule 300 MG active 9 RXNORM 1 capsu le Oral one time a day Routin e Give 1 capsu le by mouth one time a day for Schiz ophre nicolás 2024 - Schizophren ia Docusate Sodium Oral Tablet 100 MG active 08491 79 RXNORM 1 table t Oral every 12 hours Routin e Give 1 table t by mouth every 12 hours for Const ipati on HOLD FOR LOOSE STOOL S 2024 - Constipatio n Finasteride Oral Tablet 5 MG active 68930 6 RXNORM 1 table t Oral one time a day Routin e Give 1 table t by mouth one time a day for BPH 2024 - BPH Thiamine HCl Oral Tablet 100 MG active 27338 3 RXNORM 1 table t Oral one time a day Routin e Give 1 table t by mouth one time a day for Vitam in Suppl ement 2024 - Vitamin Supplement Benztropine Mesylate Oral Tablet 1 MG active 07385 3 RXNORM 1 table t Oral every 12 hours Routin e Give 1 table t by mouth every 12 hours for Tremo rs 2024 - Tremors Genvoya Oral Tablet 150-150-200 -10 MG active 27838 19 RXNORM 1 table t Oral one time a day Routin e Give 1 table t by mouth one time a day for Antiv iral 2024 - Antiviral hydrOXYzine HCl Oral Tablet 25 MG active 18672 8 RXNORM 1 table t Oral as needed PRN Give 1 table t by mouth every 6 hours as neede d for anxie ty 2024 - anxiety Folic Acid Oral Tablet 1 MG active 57666 0 RXNORM 1 mg Oral one time a day Routin e Give 1 mg by mouth one time a day for Suppl ement 2024 - Supplement Acetaminoph en Oral Tablet 325 MG active 69743 2 RXNORM 2 table t Oral as needed PRN Give 2 table t by mouth every 6 hours as neede d for Pain Total Dose 650mg * *DO NOT EXCEE D 3 grams in 24 hours AND Give 2 table t by mouth every 6 hours as neede d for [place] ratur e great er than 101.F Total Dose 650mg * *DO NOT EXCEE D 3 grams in 24 hours 2024 - Pain 90660 2 RXNORM 2 table t Oral as needed PRN Give 2 table t by mouth every 6 hours as neede d for Pain Total Dose 650mg * *DO NOT EXCEE D 3 grams in 24 hours AND Give 2 table t by mouth every 6 hours as neede d for [place] ratur e great er than 101.F Total Dose 650mg * *DO NOT EXCEE D 3 grams in 24 hours 2024 - Temperature greater than 101.F Acetaminoph en Oral Tablet 325 MG active 35726 2 RXNORM 2 table t Oral as needed PRN Give 2 table t by mouth every 6 hours as neede d for Pain Total Dose 650mg * *DO NOT EXCEE D 3 grams in 24 hours AND Give 2 table t by mouth every 6 hours as neede d for [place] ratur e great er than 101.F Total Dose 650mg * *DO NOT EXCEE D 3 grams in 24 hours 2024 - Pain 41431 2 RXNORM 2 table t Oral as needed PRN Give 2 table t by mouth every 6 hours as neede d for Pain Total Dose 650mg * *DO NOT EXCEE D 3 grams in 24 hours AND Give 2 table t by mouth every 6 hours as neede d for [place] ratur e great er than 101.F Total Dose 650mg * *DO NOT EXCEE D 3 grams in 24 hours 2024 - Temperature greater than 101.F Carvedilol Oral Tablet 6.25 MG active 1 RXNORM 1 table t Oral two times a day Routin e Give 1 table t by mouth two times a day for HTN 2024 - HTN Glucose Gel 40 % active 80527 4 RXNORM 1 appli catio n Oral as needed PRN Give 1 appli catio n by mouth as neede d for Blood Sugar s less than 60 and consc ious, reche ck blood sugar in 15-mi n if blood sugar is less than 60 may repea t x1 and call MD 2024 - Blood Sugars BD AutoShield Duo Miscellaneo us [...] Delayed Release Disintegrat ing 15 MG active 80217 1 RXNORM 1 table t Oral one time a day Routin e Give 1 table t by mouth one time a day for anti ulcer 2024 - anti ulcer Lancets Miscellaneo us active 1 basil t Subcut aneous as needed PRN Injec t 1 basil t subcu taneo usly as neede d for gluco se monit oring 2024 - glucose monitoring Mental Status Section Date Assessment Total Score Description 12/07/2024 CAM 0 No delirium ind icated 11/28/2024 CAM 0 No delirium ind icated Insurance Providers Coverage Status Coverage Type Relationship to Subscriber Member Identifier Subscriber Identifier Group Identifier Payer Identifier and Other information 2024 Code: 2 Code System OID:[id number]. 3.221.5 Code System Name: Source of Payment Typology (PHDSC) Display: Medicaid Translation : Code: 48 Code System: OID:[id number] [id number]. [id number] Code System Name: Insurance Type Code ([id number]) Display Name: Medicaid Code: SELF Code System Name: HL7 RoleCode Code System OID:[id number] .[id number] Display Name: Self [id number] Root: [id number] Address: Plan of Treatment Section Interventions Intervention Code Code System Display Name Proposed D ate Problems Problem # Description Date of onset Resolved Date Code CodeSystem Concern Status 1 MUSCLE WEAKNESS (GENERALIZED) 01/11/[address] active 2 ACQUIRED ABSENCE OF RIGHT LEG BELOW KNEE 10/16/[address] active 3 ACUTE AND CHRONIC RESPIRATORY FAILURE WITH HYPOXIA 10/16/[address] active 4 ANOXIC BRAIN DAMAGE, NOT ELSEWHERE CLASSIFIED 10/16/[address] active 5 BENIGN PROSTATIC HYPERPLASIA WITHOUT LOWER URINARY TRACT SYMPTOMS 10/16/[address] active 6 CHRONIC KIDNEY DISEASE, STAGE 2 (MILD) 10/16/[address] active 7 CHRONIC VIRAL HEPATITIS C 10/16/[address] active 8 DYSKINESIA OF ESOPHAGUS 10/16/[address] active 9 ENCOUNTER FOR ATTENTION TO GASTROSTOMY 10/16/[address] active 10 ENCOUNTER FOR ATTENTION TO TRACHEOSTOMY 10/16/[address] active 11 ESSENTIAL (PRIMARY) HYPERTENSION 10/16/[address] active 12 HYPERLIPIDEMIA, UNSPECIFIED 10/16/[address] active 13 MUSCLE WASTING AND ATROPHY, NOT ELSEWHERE CLASSIFIED, MULTIPLE SITES 10/16/[address] active 14 OTHER CIRRHOSIS OF LIVER 10/16/[address] active 15 OTHER NONSPECIFIC ABNORMAL FINDING OF LUNG FIELD 10/16/[address] active 16 PERIPHERAL VASCULAR DISEASE, UNSPECIFIED 10/16/[address] active 17 SCHIZOPHRENIA, UNSPECIFIED 10/16/[address] active 18 TYPE 2 DIABETES MELLITUS WITHOUT COMPLICATIONS 10/16/[address] active 19 UNSPECIFIED SEVERE PROTEIN-CALORIE MALNUTRITION 10/16/[address] active 20 UNSPECIFIED SYSTOLIC (CONGESTIVE) HEART FAILURE 10/16/[address] active Reason for Referral No Reasons for Referral Entered Diagnostic Results Radiology Test Results Code Code System Date Test Procedure Status Notes 72908-5 LOINC 5 XRAY CHEST 2 VIEW Completed Result for: ALFREDO GARCIA ( 1965, M) 60986-2 LOINC 5 XRAY CHEST 2 VIEW Final XRAY CHEST 2 VIEWSee NoteFINDINGS: There is a focal infiltrate or possibly a mass at the right lung base. The lungs otherwise appear clear. A small right pleural effusion is present. The heart is normal in size. Hilar areas are normal. Pulmonary vasculature is normal. A tracheostomy tube is present. There appears to be a feeding tube in the stomach.See NoteCONCLUSION: There is a focal infiltrate or possibly a mass at the right lung base. I suspect this represents pneumonia but short-term follow-up films are recommended to evaluate for clearing. A small right pleural effusion is present.ELECTRONICALLY SIGNED BY FERDINAND SANTILLAN M.D. 01/14/2025 11:36:32 AM EST.Reason for Study: A37.90 WHOOPING COUGH, UNSPECIFIED SPECIES WITHOUT PNEUMONIAPrincipal Result Door Captain: FERDINAND SANTILLAN ([id number])Nurse Assessor: SAFIA MENDOZA (BBIRKS)Senior Software Qa Engineer Nurse Assessor: WILBERTO Social History Social History Observation Description Start Date End Date Code Code System Current Smoking Status Tobacco smoking consumption unknown 445214260 SNOMED CT Sex Assigned At Male 1965 [address]338-2 [facility] Gender Identity Sexual Orientation Vital Signs Code Code System Vitals Name Values and Units Timing Information 9279-1 [facility] Respiratory Rate Value=18.0 Units=/m in 01/17/2025 8462-4 [facility] Blood Pressure-Diastolic Value=77 Un its=mmHg 01/17/2025 8480-6 [facility] Blood Pressure-Systolic Lurjm=565 Un its=mmHg 01/17/2025 8310-5 [facility] Body Temperature Value=97.6 Units= F 01/17/2025 8867-4 [facility] Heart rate Value=76.0 Units=/min 01/2025 10409-8 [facility] O2 % BldC Oximetry Value=96.0 Units= % 01/17/2025 93993-0 [facility] Pain Level Value=0.0 01/16/2025 2339-0 [facility] Blood Sugar Brill=496.0 Units=mg/dL 01/16/2025 21304-0 [facility] Weight Nuekd=981.3 Units=Lbs 04/2024 8302-2 [facility] Height Value=68.0 Units=Inches 10/16/2024
[2025-01-17] VITALS (7 sets, daily range): BP systolic 104–146; BP diastolic 58–71; PULSE 72–81; RESP 13–18; TEMP 36.8–37.2; O2SAT 94–99; BMI 21.7; BMI 16.9
--- NOTE | 2025-01-17 01:34 | PM.IMHP ---
History of Present Illness Date of Service: 01/17/25 Attending physician on admission: [place] Chief Complaint: G tube removed Leo Zhou is a 59 years old man with a past medical history significant for mood disorder, type 2 diabetes mellitus, essential hypertension, hyperlipidemia, CAD, chronic hep C and HFrEF was brought to the ED from his facility after his GJ-tube was removed and needed to be placed. Patient is a vague historian and unable to provide meaningful which IP. In the ED, a Cesar tube was inserted in the stoma to prevent closing. I was requested to admit the the patient for IR intervention for G-tube insertion. According to ED, for unclear reason, staff at his nursing facility decided it would be best to pull patient's G-tube completely. In the ED, he was found to have stable vital signs. [facility] Medical History Diabetes Mood disorder Elevated C-reactive protein (CRP) Elevated erythrocyte sedimentation rate Enterococcal bacteremia Callus of foot Eschar of foot Diabetic foot ulcers Sepsis Osteomyelitis of left foot Open wnd foot-complicated HIV (human immunodeficiency virus infection) Hepatitis Chronic prostatitis Erectile dysfunction due to arterial insufficiency BPH w urinary obs/LUTS Urinary hesitancy Family History Father No problems noted. Mother No problems noted. Surgical History No pertinent past surgical history Social History Household Members: None Household Members Other:: snf Housing: Assisted Living Facility Housing Other:: skilled nursing Do you presently have visiting nurse or other home services: Yes Alcohol intake: never Comment: RIGHT BKA Patient Tobacco Use Status: Former Tobacco user Tobacco use type: Cigarette Cigarette Packs Per Day: 1 Cigarettes Per Day: 20.0 Second Hand Smoke Exposure: Yes Advance Directives Date on File: 12/09/24 service: No Current occupational status: unemployed Meds Allergies Allergy/AdvReac Type Severity Reaction Status Date / Time acetaminophen (From TYLENOL) Allergy Unknown UNKNOWN Verified 01/16/25 22:38 aspirin (ASA) Allergy Unknown AGITATION Verified 01/16/25 22:38 chlorpromazine (From Allergy Unknown Verified 01/16/25 22:38 Thorazine) clonazepam (From Klonopin) Allergy Rash Verified 01/16/25 22:38 trazodone (TRAZODONE) AdvReac Unknown HYPER Verified 01/16/25 22:38 Active Medications: Current Medications Dextrose (Dextrose 50 % 25 Gm/50 Ml Syringe) 25 gm IVPUSH Q15M PRN; Protocol PRN Reason: per Hypoglycemia Standing Ord. Glucose (Glucose Gel 15 Gm Gel..Gram.) 15 gm PO Q15M PRN; Protocol PRN Reason: per Hypoglycemia Standing Ord. Insulin Human Lispro (Insulin Lispro 100 Unit/Ml 3 Ml Vial) 0 unit SUBCUT QIDACHS BRANDON; Protocol Sodium Chloride (0.9 % Sodium Chloride Flush 3 Ml Syringe) 3 ml IVFLUSH QSHIFT [facility] Home Medications ?Medication ?Instructions ?Recorded ?Confirmed ?Last Taken ?Type benztropine 2 mg tablet 1 mg PO BID 02/16/21 12/07/24 Unknown History elviteg 150 mg-cob 150 mg-emtricit 1 tab PO DAILY 02/16/21 12/07/24 Unknown History 200 mg-tenofo alafenam 10 mg tablet (Genvoya) lithium carbonate 300 mg tablet 300 mg PO DAILY 02/16/21 12/07/24 Unknown History pravastatin 40 mg tablet 40 mg PO BEDTIME 02/16/21 12/07/24 Unknown History risperidone 3 mg tablet 6 mg PO BEDTIME 02/16/21 12/07/24 Unknown History omeprazole 20 mg capsule,delayed 20 mg PO DAILY@0630 03/05/21 12/07/24 Unknown History release polyethylene glycol 3350 17 17 g PO DAILY 09/02/21 12/07/24 Unknown History gram/dose oral powder (Gavilax) risperidone 2 mg tablet 2 mg PO DAILY@1200 01/01/22 12/07/24 Unknown History sennosides 8.6 mg tablet (senna) 17.2 mg PO DAILY@0900 01/01/22 12/07/24 Unknown History docusate sodium 100 mg capsule 100 mg PO BID 02/08/24 12/07/24 Unknown History insulin glargine 100 unit/mL (3 8 unit subcut BEDTIME 02/08/24 12/07/24 Unknown History mL) subcutaneous pen (Lantus Solostar U-100 Insulin) acetaminophen 325 mg tablet 325 mg PO QID PRN Pain (Scale 12/07/24 12/07/24 Unknown History Score 1-3) amiodarone 100 mg tablet 100 mg PO DAILY 12/07/24 12/07/24 Unknown History aspirin 81 mg tablet,delayed 81 mg PO DAILY 12/07/24 12/07/24 Unknown History release carvedilol 6.25 mg tablet 6.25 mg PO BID 12/07/24 12/07/24 Unknown History folic acid 1 mg tablet 1 mg PO DAILY 12/07/24 12/07/24 Unknown History hydroxyzine HCl 25 mg tablet 25 mg PO QID PRN Anxiety 12/07/24 12/07/24 Unknown History insulin lispro 100 unit/mL 6 - 14 sliding scale dose subcut 12/07/24 12/07/24 Unknown History subcutaneous pen USEASDIRECTD ipratropium bromide 0.02 % 2.5 ml inhalation Q6H PRN Wheezing 12/07/24 12/07/24 Unknown History solution for inhalation lansoprazole 15 mg capsule,delayed 15 mg PO DAILY 12/07/24 12/07/24 Unknown History release multivitamin 1 tab PO DAILY 12/07/24 12/07/24 Unknown History tamsulosin 0.4 mg capsule (Flomax) 0.4 mg PO BEDTIME 12/07/24 12/07/24 Unknown History thiamine HCl (vitamin B1) 100 mg 100 mg PO DAILY 12/07/24 12/07/24 Unknown History tablet Physical Exam Vital Signs and Narrative: Vital Signs: Last Vital Signs Temp 98.3 F 01/17/25 00:00 Pulse 72 01/17/25 00:00 Resp 16 01/17/25 00:00 BP 104/58 L 01/17/25 00:00 Pulse Ox 97 01/17/25 00:00 O2 Del Method Room Air 01/17/25 00:00 BMI result Body Mass Index 21.1 General: Alert, oriented, in no acute distress. Cooperative. Cachectic. Afebrile. HEENT: Head normocephalic, atraumatic. PER, EOMI. Sclerae anicteric, conjunctiva clear. Oropharynx without erythema or exudate. Mucous membranes moist. Neck: Supple, no lymphadenopathy, or JVD. Heart: RRR, no murmurs, rubs or gallops. Lungs: Clear to auscultation bilaterally. No wheezes, rales, or rhonchi. Normal respiratory effort. Abdomen: Soft, non tenderness, nondistended, normoactive bowel sounds. G-tube in place. Extremities: No calf tenderness bilaterally, no swelling Musculoskeletal: Full range of motion. No joint swelling, deformity, or tenderness. Generalized muscle atrophy. Skin: Warm/Dry. No pallor. No jaundice. Neurologic: Alert. Oriented x1. Moving all extremities spontaneously. Normal speech. Psychological: Seems to be confused. Assessment and Plan (1) Encounter for gastrojejunal (GJ) tube placement: Status: Acute (2) Weakness: Status: Acute Plan Leo Zhou is a 59 years old man with a past medical history significant for mood disorder, type 2 diabetes mellitus, essential hypertension, hyperlipidemia, CAD, chronic hep C and HFrEF was brought to the ED after his GJ tube was removed. A temporary Cesar catheter was inserted by ED. It was requested for us to keep patient under the hospitalist service for IR evaluation for proper GJ tube insertion. We will continue his home medications for chronic diseases when able. Quality Stroke Does the patient have a stroke diagnosis?: No VTE Prior VTE?: No VTE Risk Level:: Medical - moderate - high VTE Device Contraindication: N/A - Device Ordered VTE Drug Contraindication: Treatment Not Indicated
--- NOTE | 2025-01-17 01:57 | PC.NURSE ---
This RN resumed care of patient at 2300, Pt was resting comfortably in bed, at this time MD was able to get 16F Gtube to replace. Pt tolerated placement well, regular Gtube in place, pt to go to IR in the morning to get J/Gtube replaced with correct tube. Pt remains stable on RA, pt moved to hallway at this time resting comfortably, offers no complaints at this time.
--- NOTE | 2025-01-17 02:02 | PC.NURSE ---
MD aware pt has been refusing IV, pt is asleep at this time, okay'd to wait until morning to attempt Iv placement with pt
[2025-01-17 03:51] LABS: MANUAL DIFF FLAG NO
[2025-01-17 03:52] LABS: Hematocrit 29.0 % (42.0-52.0); Hemoglobin 9.4 g/dl (14.0-18.0); Imm Gran Abs Auto 0.03 X10*3/uL (0.00-0.03); Imm Gran Pct Auto 0.3 % (0.0-0.4); Lymphocytes Absolute Auto 1.6 X10*3/uL (1.2-4.9); Mean Corpuscular HGB Conc 32.4 g/dl (31.0-36.0); Mean Corpuscular Hemoglobin 28.0 pg (27.0-33.0); Mean Corpuscular Volume 86.3 fL (80.0-98.0); NRBC Abs Auto 0.000 X10*3/uL (0.0-0.012); NRBC Pct Auto 0.0 /100WBC (0.0-0.2); Platelet Count 210 X10*3/uL (160-400); Red Blood Count 3.36 X10*6/uL (4.60-5.80); White Blood Count 9.0 X10*3/uL (4.8-10.8)
--- NOTE | 2025-01-17 03:59 | HO.NURTONUR ---
Pt comes in from [facility], staff reporting they were having difficulty with the pts Gtube, according to staff as they were attempting to unclog tube the tube broke and staff removed the entire Gtube. In ED MD placed a temporay Gtube to keep his stoma open, pt admitted to go to IR in the morning to change out with his normal Gtube style. Pt has trach, which is stable, he remains on RA with no issues/concerns. Pt tolerated placement of 16F Gtube in ED well. Pt has been resting comfortably at this time, denies complaints of pain, primarily moldovan speaking. Pt to remain NPO for IR intervention in the morning. Pt has no iv at this time as he was refusing for one on ED arrival, Admitting MD aware, will attempt to place one in the morning once pt is awake.
[2025-01-17 04:03] LABS: Anion Gap 13 (12-20); Blood Urea Nitrogen 21 mg/dL (9-16); Calcium 9.9 mg/dL (8.4-10.2); Carbon Dioxide 24 mmol/L (22-29); Chloride 106 mmol/L (96-108); Creatinine Clr Calc Pharmacy 48.0; Estimated Glomerular Filt Rate > 60; Potassium 3.8 mmol/L (3.3-5.1); Sodium 139 mmol/L (135-145)
[2025-01-17 07:35] LABS: Glucose, Whole Blood 129 mg/dL (60-115)
--- NOTE | 2025-01-17 07:47 | PC.NURSE ---
20g iv placed in right ac
--- NOTE | 2025-01-17 08:06 | PHA.MEDREC ---
Pharmacy Consult ? Medication Reconciliation Pharmacy has completed the medication reconciliation. Spoke with patient with help from [employer], he states nothing changed from his last admission. He didn't recognize augmentin or doxycycline which were prescribed on 12/10/24 but should be finished by now. He did not know when he last took his meds.
--- NOTE | 2025-01-17 09:46 | PC.NURSE ---
Pt arrived 0900 from ED via stretcher. Using an blackjack supervisor Pt refused assessment and intake, asked RN to leave. Unhappy about NPO status. MD vargas
[2025-01-17 11:43] LABS: Glucose, Whole Blood 136 mg/dL (60-115)
--- NOTE | 2025-01-17 11:57 | MHC.CM.PN ---
pt from [facility] where he will return when dcd pt is a ma bed gold
--- NOTE | 2025-01-17 12:03 | MHC.CLN ---
CONSULT BARBY NPO FOR GJ TUBE PLACEMENT. FEEDING TUBE BROKE AND REMOVED AT LTC FACILITY. RECOMMEND GLUCERNA 1.2 AT MAX GOAL RATE 55 ML PER HOUR, FREE WATER FLUSHES 240 ML Q 8 HOURS. PROVIDES 1584 KCALS (31.5 KCALS/KG), 79 G PROTEIN (1.6 G/KG), 1783 ML TOTAL FREE WATER FROM FORMULA AND FLUSHES (35.4 ML/KG). START FORMULA AT 20 ML PER HOUR AND INCREASE BY 10 ML Q 4 HOURS TO MAX GOAL RATE 55 ML/HOUR. QUALIFIES MODERATELY MALNOURISHED IN THE CONTEXT OF CHRONIC ILLNESS. FOLLOW FOR TF TOLERANCE AND POSSIBLE PO INTAKE. SEE CLINICAL NUTRITION ASSESSMENT.
--- NOTE | 2025-01-17 14:19 | MHC.CM.PN ---
pt dcd back to [facility] today at [address] [place] [address] notified
--- NOTE | 2025-01-17 14:39 | P.DS_ITS ---
DS: Providers Provider Date of admission: 01/16/25 23:48 Date of discharge: 01/17/25 Primary care physician: Unknown Physician DS: Diagnosis Discharge Diagnosis (1) Encounter for gastrojejunal (GJ) tube placement: Status: Acute (2) Moderate protein-calorie malnutrition: Status: Acute DS: Summary Hospital Course Hospital Course: From the history and physical by the admitting hospitalist, Bel Murray MD, 01/17/25: 'Leo Zhou is a 59 years old man with a past medical history significant for mood disorder, type 2 diabetes mellitus, essential hypertension, hyperlipidemia, CAD, chronic hep C and HFrEF was brought to the ED from his facility after his GJ-tube was removed and needed to be placed. Patient is a vague historian and unable to provide meaningful which IP. In the ED, a Cesar tube was inserted in the stoma to prevent closing. I was requested to admit the the patient for IR intervention for G-tube insertion. According to ED, for unclear reason, staff at his nursing facility decided it would be best to pull patient's G-tube completely. In the ED, he was found to have stable vital signs.' Additional PMHx: History of DM2, HTN, HLD, CKD3, CAD, HIV, HCV, HFrEF, recent diagnosis of squamous cell lung cancer with recent prolonged hospitalization at [facility] for PEA arrest x3, NSTEMI, multiple strokes and left toe amputations with tracheostomy tube and PEG tube placed Apparently, per nursing staff at the SNF, his tube broke and thus was removed. He was admitted to the medical-surgical unit on observation status. IR consulted and placed a new GJ tube. He was discharged back to the SNF with resumption of all prior medications and feeds. Time Attestation Discharge Coordination Time (in mins): 35 Quality: Safe Use of Opioids Does Pt have an Active Cancer Diagnosis on the Problem List?: No Quality: Stroke Does the patient have a stroke diagnosis?: No Physical Exam Vital Signs: Vital Signs: Last Vital Signs Temp 98.9 F 01/17/25 08:42 Pulse 78 01/17/25 08:42 Resp 18 01/17/25 08:42 BP 127/68 01/17/25 08:42 Pulse Ox 97 01/17/25 08:42 O2 Del Method Room Air 01/17/25 08:42 BMI result Body Mass Index 16.9 Gen: in no acute distress HEENT: sclera anicteric, moist mucus membranes Neck: supple, tracheostomy Lungs: clear to auscultation bilaterally Heart: regular rate and rhythm, no murmurs Abd: soft, non-tender, non-distended, G-tube Ext: no edema Skin: warm/well-perfused Neuro: alert and oriented to self Psych: appropriate affect DS: Data Data Completed and Pending Completed studies during hospitalization [Text1]: Laboratory Results WBC 9.0 X10*3/uL (4.8-10.8) 01/17/25 03:34 RBC 3.36 X10*6/uL (4.60-5.80) L 01/17/25 03:34 Hgb 9.4 g/dl (14.0-18.0) L 01/17/25 03:34 Hct 29.0 % (42.0-52.0) L 01/17/25 03:34 MCV 86.3 fL (80.0-98.0) 01/17/25 03:34 MCH 28.0 pg (27.0-33.0) 01/17/25 03:34 MCHC 32.4 g/dl (31.0-36.0) 01/17/25 03:34 RDW 13.4 % (11.0-16.0) 01/17/25 03:34 Plt Count 210 X10*3/uL (160-400) 01/17/25 03:34 MPV 10.2 fL (9.4-12.4) 01/17/25 03:34 Immature Gran % (Auto) 0.3 % (0.0-0.4) 01/17/25 03:34 Neut % (Auto) 69.1 % (45-73) 01/17/25 03:34 Lymph % (Auto) 18.1 % (20-40) L 01/17/25 03:34 [place] % (Auto) 10.6 % (2-11) 01/17/25 03:34 Eos % (Auto) 1.7 % (0-4) 01/17/25 03:34 Baso % (Auto) 0.2 % (0-2) 01/17/25 03:34 Lymph # (Auto) 1.6 X10*3/uL (1.2-4.9) 01/17/25 03:34 [place] # (Auto) 1.0 X10*3/uL (0.1-1.2) 01/17/25 03:34 Eos # (Auto) 0.2 X10*3/uL (0.0-0.4) 01/17/25 03:34 Baso # (Auto) 0.0 X10*3/uL (0.0-0.2) 01/17/25 03:34 Abs Immat Gran (auto) 0.03 X10*3/uL (0.00-0.03) 01/17/25 03:34 Absolute Neuts (auto) 6.2 x10*3/uL (2.0-8.3) 01/17/25 03:34 Absolute Nucleated RBC 0.000 X10*3/uL (0.0-0.012) 01/17/25 03:34 Nucleated RBC % (auto) 0.0 /100WBC (0.0-0.2) 01/17/25 03:34 Sodium 139 mmol/L (135-145) 01/17/25 03:34 Potassium 3.8 mmol/L (3.3-5.1) 01/17/25 03:34 Chloride 106 mmol/L (96-108) 01/17/25 03:34 Carbon Dioxide 24 mmol/L (22-29) 01/17/25 03:34 Anion Gap 13 (12-20) 01/17/25 03:34 BUN 21 mg/dL (9-16) H 01/17/25 03:34 Creatinine 1.13 mg/dL (0.5-1.4) 01/17/25 03:34 Estim Creat Clear Calc 48.0 01/17/25 03:34 Estimated GFR > 60 01/17/25 03:34 POC Glucose 136 mg/dL (60-115) H 01/17/25 11:29 Random Glucose 116 mg/dL (60-115) H 01/17/25 03:34 Calcium 9.9 mg/dL (8.4-10.2) 01/17/25 03:34 Discharge Plan Discharge Patient Disposition: er [facility] Discharge Diagnosis: GJ tube dysfunction, resolved Referrals: riley contreras [Other] - 1 Week Physician,Unknown J [Primary Care Provider, Medical] - 1 Week Discharge Medications: Continued omeprazole 20 mg capsule,delayed release(DR/EC) 20 mg PO DAILY@0630 sennosides [senna] 8.6 mg tablet 17.2 mg PO DAILY@0900 risperidone 2 mg tablet 2 mg PO DAILY@1200 (DME) Ultra-Light Rollator Misc See Rx Instructions .Route Qty: 1 0RF Rx Instructions: As directed docusate sodium 100 mg capsule 100 mg PO BID insulin glargine [Lantus Solostar U-100 Insulin] 100 unit/mL (3 mL) insulin pen 8 unit subcut BEDTIME multivitamin Tablet 1 tab PO DAILY acetaminophen 325 mg Tablet 325 mg PO QID PRN (Reason: Pain (Scale Score 1-3)) carvedilol 6.25 mg Tablet 6.25 mg PO BID Rx Instructions: must administer with a meal/food thiamine HCl (vitamin B1) 100 mg Tablet 100 mg PO DAILY aspirin 81 mg Tablet,Delayed Release (Dr/Ec) 81 mg PO DAILY tamsulosin [Flomax] 0.4 mg Capsule 0.4 mg PO BEDTIME lansoprazole 15 mg Capsule,Delayed Release(Dr/Ec) 15 mg PO DAILY folic acid 1 mg Tablet 1 mg PO DAILY hydroxyzine HCl 25 mg Tablet 25 mg PO QID PRN (Reason: Anxiety) ipratropium bromide 0.02 % Solution 2.5 ml INHALATION Q6H PRN (Reason: Wheezing) insulin lispro 100 unit/mL Insulin Pen 6 - 14 sliding scale dose SUBCUT USEASDIRECTD amiodarone 100 mg Tablet 100 mg PO DAILY Genvoya [phone] mg tablet 1 tab PO DAILY pravastatin 40 mg tablet 40 mg PO BEDTIME lithium carbonate 300 mg tablet 300 mg PO DAILY risperidone 3 mg tablet 6 mg PO BEDTIME benztropine 2 mg tablet 1 mg PO BID polyethylene glycol 3350 [Gavilax] 17 gram/dose powder 17 g PO DAILY finasteride 5 mg tablet 5 mg PO DAILY 90 Days Qty: 90 3RF Discharge Orders: Discharge Order (Routine); Ordered 01/17/25 Ordered By: Viraj Willis Diet: Advance to usual diet Activity on Discharge: As tolerated Stand Alone Forms: Patient Portal Discharge page Print Language: Indonesian Care Plan Goals: long-term nursing care Health Concerns: GJ tube dysfunction, resolved Plan of Treatment: resume all home meds and feeds Assessment: See Discharge Summary. Discharge Date/Time: 01/17/25 17:16
--- NOTE | 2025-01-17 16:20 | PM.EVENT ---
Documented by User: Jasbir King NP 01/17/25 16:22 Event Note Date of Service: 01/17/25 Event Note: Successful GJ tube replacement. Patient now has an 18F x 45 cm GJ tube and is ready for use. Time Spent With Patient Time: Total time managing care of this patient today __60__ minutes. Documented by User: Reji West MD 01/21/25 12:58 Event Note Date of Service: 01/21/25
[2025-01-17 16:58] LABS: Glucose, Whole Blood 118 mg/dL (60-115)
== END 2025-01-17 17:16 ==
LOC: HO.ED 01-17 00:10 → HO.EDOVER 01-17 00:12 → HO.S3 01-17 07:28
PROVIDERS: Admitting Provider Internal Medicine; Emergency Provider Emergency Medicine; PCP Family Medicine; Visit Provider Family Medicine
DX: E44.0 Moderate protein-calorie malnutrition (principal); Z43.1 Encounter for attention to gastrostomy; R53.1 Weakness; F39 Unspecified mood [affective] disorder; E78.5 Hyperlipidemia, unspecified; E11.22 Type 2 diabetes mellitus with diabetic chronic kidney disease; I13.0 Hypertensive heart and chronic kidney disease with heart failure and stage 1 through stage 4 chronic kidney disease, or unspecified chronic kidney disease; N18.30 Chronic kidney disease, stage 3 unspecified; I50.20 Unspecified systolic (congestive) heart failure; Z68.1 Body mass index [BMI] 19.9 or less, adult
CPT/HCPCS: 36415; 49452; 80048; 82947; 85025; 99221; 99285; C1769; C1887; C1894; J2003; Q9967

== ENCOUNTER 2025-01-16 23:48 | Outpatient (BNV) | payer MEDICAID, SELFPAY | END 2025-01-17 13:00 | PROVIDERS: Admitting Provider Internal Medicine; Emergency Provider Emergency Medicine; PCP Family Medicine | DX: E44.0 Moderate protein-calorie malnutrition (principal); Z68.1 Body mass index [BMI] 19.9 or less, adult; Z46.59 Encounter for fitting and adjustment of other gastrointestinal appliance and device | CPT/HCPCS: 49452 ==

== ENCOUNTER → 2025-01-16 23:48 | Outpatient (BNV) | payer MEDICAID, SELFPAY | PROVIDERS: Admitting Provider Internal Medicine; Emergency Provider Emergency Medicine; Visit Provider Internal Medicine | DX: R53.1 Weakness (principal); E44.0 Moderate protein-calorie malnutrition; Z46.59 Encounter for fitting and adjustment of other gastrointestinal appliance and device; Z78.9 Other specified health status | CPT/HCPCS: 99234; 99499 ==

== ENCOUNTER 2025-02-03 09:56 | Outpatient (REF) | payer MEDICAID, SELFPAY ==
[2025-02-03 08:28] LABS: MANUAL DIFF FLAG NO
[2025-02-03 08:31] LABS: Hematocrit 30.2 % (42.0-52.0); Hemoglobin 9.5 g/dl (14.0-18.0); Imm Gran Abs Auto 0.05 X10*3/uL (0.00-0.03); Imm Gran Pct Auto 0.6 % (0.0-0.4); Lymphocytes Absolute Auto 1.6 X10*3/uL (1.2-4.9); Mean Corpuscular HGB Conc 31.5 g/dl (31.0-36.0); Mean Corpuscular Hemoglobin 28.3 pg (27.0-33.0); Mean Corpuscular Volume 89.9 fL (80.0-98.0); NRBC Abs Auto 0.000 X10*3/uL (0.0-0.012); NRBC Pct Auto 0.0 /100WBC (0.0-0.2); Platelet Count 265 X10*3/uL (160-400); Red Blood Count 3.36 X10*6/uL (4.60-5.80); White Blood Count 9.0 X10*3/uL (4.8-10.8)
[2025-02-03 08:47] LABS: Alanine Aminotransferase 15 U/L (0-40); Albumin Level 3.7 g/dL (3.5-5.0); Alkaline Phosphatase 93 U/L (39-117); Anion Gap 11 (12-20); Aspartate Amino Transferase 17 U/L (5-37); Blood Urea Nitrogen 28 mg/dL (9-16); Calcium 9.7 mg/dL (8.4-10.2); Carbon Dioxide 27 mmol/L (22-29); Chloride 106 mmol/L (96-108); Estimated Glomerular Filt Rate 57; Potassium 4.5 mmol/L (3.3-5.1); Sodium 139 mmol/L (135-145); Total Protein 6.8 g/dL (6.5-8.0)
--- OUTSIDE RECORDS SUMMARY | 2025-02-03 10:49 | XMS_ITS | Clinical Summary ---
Author Organization [facility] Address [address] [place] [address] Phone Care Team Providers Care Telegraph Installer Name Role Phone Shell Lopez MD Primary Care Provider [phone] Allergies Active Allergy Reactions Criticality Noted Date [...] topic Insurance MEDICAID - [place] Care Teams Telegraph Installer Relationship Specialty Start Date End Date Shell Lopez MD [address] [place] [address] [phone] PCP - General 08/16/23
== END 2025-02-03 09:57 ==
LOC: HO.MMNH3L 09:56
PROVIDERS: Visit Provider Physician Assistant Medical
DX: E11.22 Type 2 diabetes mellitus with diabetic chronic kidney disease (principal); N18.9 Chronic kidney disease, unspecified; I82.890 Acute embolism and thrombosis of other specified veins
CPT/HCPCS: 36415; 80053; 85025